=== PATIENT | male | born 1960 | race Caucasian/White ===

== ENCOUNTER 2016-11-19 11:51 | Inpatient (IN) | payer OTHER ==
[~2016-11-19] VITALS: Ht 180.3 cm; Wt 127.0 kg
[2016-11-19] VITALS (37 sets, daily range): BP systolic 90–215; BP diastolic 49–147; PULSE 64–77; RESP 13–34; TEMP 97.2; Ht 180.3 cm; Wt 127.0 kg
[~2016-11-19 11:51] MED LIST: ETOMIDATE 20 MG INJ ONE
[2016-11-19] MEDS ORDERED: KETAMINE 500 MG INJ IV STA (12:09)
[2016-11-19] MEDS ORDERED: SUCCINYLCHOLINE CHLORIDE 100 MG/5 ML SYG IV STA (12:09)
[2016-11-19] MEDS ORDERED: HYDROmorphONE 1 MG/ML SYG IV STA (12:09)
[2016-11-19] MEDS ORDERED: PROPOFOL 100 ML IV STA (12:09)
[2016-11-19] MEDS ORDERED: ETOMIDATE 20 MG INJ IV STA (12:09)
[2016-11-19] MEDS ORDERED: ASPIRIN 300 MG SUPP PR STA (12:09)
[2016-11-19] MEDS ORDERED: KETAMINE 500 MG INJ ONE (12:10)
[2016-11-19] MEDS ORDERED: HEPARIN 1000 UNITS/ML 10 ML INJ IV STA (12:12)
[2016-11-19 12:29] LABS: ADD SCAN DIFF NO
[2016-11-19 12:31] LABS: BASOPHILS % 0.2 % (0.0-2.0); HEMATOCRIT 39.8 % (42.0-52.0); HEMOGLOBIN 12.3 g/dl (14.0-18.0); LYMPHOCYTES # 2.2 10^3/ul (0.8-2.9); LYMPHOCYTES % 11.5 % (15.0-51.0); MEAN CORPUSCULAR HEMOGLOBIN 29.8 pg (29.0-33.0); MEAN CORPUSCULAR HGB CONC 30.9 g/dl (32.0-37.0); MEAN CORPUSCULAR VOLUME 96.4 fl (82.0-101.0); MEAN PLATELET VOLUME 11.3 fl (7.4-10.4); MONOCYTE # 1.4 10^3/ul (0.3-0.9); MONOCYTES % 7.7 % (0.0-11.0); NEUTROPHIL # 14.8 10^3/ul (1.6-7.5); NEUTROPHILS % 79.3 % (39.0-77.0); NUCLEATED RED BLOOD CELLS% 0.1 /100WBC (0.0-0.0); PLATELET COUNT 269 10^3/UL (140-415); RED BLOOD COUNT 4.13 10^6/ul (4.70-6.10); RED CELL DISTRIBUTION WIDTH 13.2 % (11.5-14.5); WHITE BLOOD COUNT 18.6 10^3/ul (4.8-10.8)
[2016-11-19] MEDS ORDERED: LIDOCAINE 1% (MDV) 20 ML INJ ONE (12:36)
[2016-11-19] MEDS ORDERED: IODIXANOL LOCM 100 ML BTL ONE ×3 (12:36→14:51)
[2016-11-19] MEDS ORDERED: VERAPAMIL 5 MG INJ ONE (12:38)
[2016-11-19] MEDS ORDERED: NITROGLYCERIN (IC) 100 MCG/ML INJ ONE (12:38)
[2016-11-19] MEDS ORDERED: IODIXANOL LOCM 50 ML BTL ONE (12:38)
--- NOTE | 2016-11-19 12:45 | RADRPT ---
PROCEDURE: XR Chest. CLINICAL INDICATION: Chest pain. TECHNIQUE: Single frontal view of the chest was obtained. COMPARISON: None FINDINGS: The soft tissues are generous. An endotracheal tube is positioned near T3. An NG tube is positione d distal to the GE junction. There is a suboptimal inspiratory effort.. There are degenerative ost eophytes in the thoracic spine. The heart is enlarged. The cardiomediastinal silhouette and hilar structures are normal. The pulmonary vasculature is equilibrated. There is a left-sided aorta. Ther e is increased density in the bases of the lungs in the medial aspect of the right lower lung field and in the left lower lung field left costophrenic angle is of the field of view. IMPRESSION: 1. Cardiomegaly. 2. Satisfactory positioning of the endotracheal tube and NG tube. 3. Suboptimal inspiratory effort with increased density in the bases of the lung which may be the r esult of either infiltrate or atelectasis. 4. Equilibration the pulmonary vasculature is attributed to supine positioning. RPTAT:AAJJ Physician Radha Date Time Electronically viewed and signed by Physician Radha on 11/19/2016 12:45 ELAYNE/
[2016-11-19 12:49] LABS: INR 2.81; PT RATIO 2.3
[2016-11-19 12:57] LABS: POTASSIUM 4.8 mmol/L (3.5-5.1)
[2016-11-19 13:00] LABS: CALCIUM 9.3 mg/dl (8.4-10.2); CREATININE 5.05 mg/dl (0.61-1.24)
[2016-11-19 13:03] LABS: PARTIAL THROMBOPLASTIN TIME 36.5 Sec (25.0-35.0)
[2016-11-19] MEDS ORDERED: FENTAnyl 50 MCG/ML VIAL ONE (13:08)
[2016-11-19] MEDS ORDERED: MIDAZOLAM 1 MG/ML 2 ML INJ ONE (13:09)
[2016-11-19 13:10] LABS: TROPONIN-I 17.1 ng/ml (0.00-0.12)
[2016-11-19] MEDS ORDERED: HEPARIN 1000 UNITS/ML 10 ML INJ ONE (13:14)
--- NOTE | 2016-11-19 13:22 | ERA ---
ER Documentation Chief Complaint Date/Time DATE: 11/19/16 TIME: 13:16 Chief Complaint SOB HPI 56-year-old male with hypertension and diabetes as well as smoking who presents with shortness of breath. Please note the history and physical exam is limited secondary to the patient's shortness of breath this time and he is on BiPAP therapy. The patient is also confused. Paramedics called from the field and said that they had a STEMI however they did not transmit the EKG through the email system. The patient arrived at 1149 and the EKG actually showed ventricular tachycardia. There is no family available at this time. ROS All systems reviewed and are negative except as per history of present illness. Medications Home Meds Unable to Obtain Active Prescriptions or Reported Meds Allergies Allergies: Coded Allergies: No Known Allergy (Unverified , 11/19/16) PMhx/Soc Hx Cardiac Disorders: Yes (htn) Hx Miscellaneous Medical Probl: Yes (dm) Smoking Status: Unknown if ever smoked FmHx Family History: No coronary disease Physical Exam Vitals Vital Signs Date Time Temp Pulse Resp B/P Pulse Ox O2 Delivery O2 Flow Rate FiO2 11/19/16 11:55 182 32 129/98 Physical Exam Const: Severe distress Head: Atraumatic Eyes: Normal Conjunctiva ENT: Normal External Ears, Nose and Mouth. Neck: Full range of motion..~ No meningismus. Resp: Patient is tachypneic and wearing a CPAP with bilateral breath sounds Cardio: Tachycardic rate Abd: Soft, non tender, non distended. Normal bowel sounds Skin: Pale skin Back: No midline or flank tenderness Ext: No cyanosis, or edema Neur: Awake but confused Result Diagram: 11/19/16 1207 11/19/16 1207 Results 24 hrs Laboratory Tests Test 11/19/16 12:07 White Blood Count 18.610^3/ul Red Blood Count 4.1310^6/ul Hemoglobin 12.3g/dl Hematocrit 39.8% Mean Corpuscular Volume 96.4fl Mean Corpuscular Hemoglobin 29.8pg Mean Corpuscular Hemoglobin Concent 30.9g/dl Red Cell Distribution Width 13.2% Platelet Count 52124^3/UL Mean Platelet Volume 11.3fl Neutrophils % 79.3% Lymphocytes % 11.5% Monocytes % 7.7% Eosinophils % 0.0% Basophils % 0.2% Nucleated Red Blood Cells % 0.1/100WBC Neutrophils # 14.810^3/ul Lymphocytes # 2.210^3/ul Monocytes # 1.410^3/ul Eosinophils # 0.010^3/ul Basophils # 0.010^3/ul Nucleated Red Blood Cells # 0.010^3/ul Prothrombin Time 30.0Sec Prothrombin Time Ratio 2.3 INR International Normalized Ratio 2.81 Activated Partial Thromboplast Time 36.5Sec Sodium Level 139mmol/L Potassium Level 4.8mmol/L Chloride Level 101mmol/L Carbon Dioxide Level 10mmol/L Anion Gap 33 Blood Urea Nitrogen 55mg/dl Creatinine 5.05mg/dl Glucose Level 114mg/dl Calcium Level 9.3mg/dl Troponin I 17.100ng/ml Current Medications Medications (Trade) Dose Ordered Sig/Ben Route PRN Reason Start Time Stop Time Status Last Admin Dose Admin Aspirin (Aspirin) 300 mg ONCE STAT OK 11/19/16 12:09 11/19/16 12:11 DC 11/19/16 12:22 Hydromorphone HCl (Dilaudid) 1 mg ONCE STAT IV 11/19/16 12:09 11/19/16 12:11 DC 11/19/16 12:18 Succinylcholine Chloride (Anectine Syringe) 150 mg ONCE STAT IV 11/19/16 12:09 11/19/16 12:11 DC Etomidate (Amidate) 20 mg ONCE STAT IV 11/19/16 12:09 11/19/16 12:11 DC Ketamine HCl 100 mg 100 mg ONCE STAT IV 11/19/16 12:09 11/19/16 12:11 DC Propofol (Diprivan) 100 ml @ 3.137 mls/ hr ONCE STAT IV 11/19/16 12:09 11/20/16 20:01 11/19/16 12:17 Ketamine HCl (Ketalar) 500 mg STK-MED ONCE .ROUTE 11/19/16 12:10 11/19/16 12:11 DC Heparin Sodium (Porcine) 5000 unit 5,000 unit ONCE STAT IV 11/19/16 12:12 11/19/16 12:13 DC 11/19/16 12:17 Heparin Sodium/ Sodium Chloride (Heparin 1000 Units/NS (A-Line)) 1,500 ml @ ud STK-MED ONCE .ROUTE 11/19/16 12:35 11/19/16 12:36 DC Lidocaine (Xylocaine 1% (Mdv) 20 ml) 20 ml STK-MED ONCE .ROUTE 11/19/16 12:36 11/19/16 12:37 DC Iodixanol (Visipaque Locm) 100 ml STK-MED ONCE .ROUTE 11/19/16 12:36 11/19/16 12:37 DC Nitroglycerin (Nitroglycerin (Intracoronary)) 1,000 mcg STK-MED ONCE .ROUTE 11/19/16 12:38 11/19/16 12:39 DC Iodixanol (Visipaque Locm) 50 ml STK-MED ONCE .ROUTE 11/19/16 12:38 11/19/16 12:39 DC Verapamil HCl (Verapamil) 5 mg STK-MED ONCE .ROUTE 11/19/16 12:38 11/19/16 12:39 DC Procedures/MDM EKG #1 read by me: Rate/Rhythm: Ventricular tachycardia Intervals: Wide QRS Impression: Ventricular tachycardia EKG #2 read by me: Rate/Rhythm: Regular rate and rhythm at a normal rate Intervals: Normal Impression: ST elevations in the inferior leads with reciprocal depressions consistent with STEMI Chest X-ray 1V Interpreted by me: Soft Tissue: No acute abnormalities Bones: No acute abnormalities Mediastinum/Cardiac Silhouette/Lungs: Pulmonary edema, ET tube is just below the clavicles Endotracheal Intubation by me: Pre assessment performed. Pre-oxygenation performed with 100% oxygen RSI: Performed w/o complication or hypoxic events. Medications as ordered. Blade: MAC 4 Glidescope ET Tube: 7, please note that an 8 ET tube was tried initially but I was unable to pass the tube so I needed to change to a 7, this was a very difficult intubation and there may be subglottic stenosis Depth: 23 cm at the lip Intubation confirmed by colorimetric CO2, equal breath sounds, quiet over the stomach. Procedural Sedation: Pre-assessment performed. See preceding complete history and physical for details. Time out performed. Counterintelligence Analyst, Continuous Pulse Ox. See sedation documentation for details. Medication(s): Ketamine 100 mg IV Complications: No hypoxic or apneic events Recovered without incident. Greater than 15 minutes of face to face time included in sedation and recovery. Cardioversion: Pre-assessment performed. See preceding complete history and physical for details. Time out performed. Counterintelligence Analyst, Continuous Pulse Ox. See sedation documentation for details. Technique: Biphasic Synchronized Cardioversion 200J: Converted Complications: No hypotensive events Critical Care: Time: 50 minutes Treatments/Evaluations: Close monitoring for dangerous arrhythmia and cardiovascular collapse, while treating with advance cardiac medications and techniques. Patient is a 56-year-old male who presents with ventricular tachycardia. The patient arrived 1149. The patient needed cardioversion for ventricular tachycardia and then required intubation. A repeat EKG showed STEMI in the inferior leads. A code STEMI was called at 1206. Dr. Simeon the cement mason helper log pond worker was at the bedside by 1212. The cardiac cath team arrived at 1236. The patient was transferred to the cardiac Billboard Erector at 1239. I spoke with Dr. Simeon who agreed to take the patient to the cardiac catheterization lab. He has for 5000 units of heparin IV in addition to the aspirin per rectum that was given in the emergency department. The patient was sedated with propofol. The patient has a significantly elevated troponin of 17 and I am concerned for significant heart attack with STEMI. Please note that there was a delay in getting the patient to the cardiac Billboard Erector given the need for cardioversion and intubation in the emergency department. Initial EKG did not show STEMI that showed ventricular tachycardia. It was only after cardioversion that the STEMI was seen. The patient has regal insurance and I spoke with Dr. Escobar for admission to the intensive care unit. Please note that the intubation was very difficult and I was unable to pass an 8 ET tube. I needed to use a 7 ET tube and this was difficult as well. The patient may require further workup for subglottic stenosis. Departure Diagnosis: Primary Impression: STEMI (ST elevation myocardial infarction) Qualified Code: I21.3 - ST elevation myocardial infarction (STEMI), unspecified artery Additional Impressions: Shortness of breath V-tach Condition: Critical KATHY VALENCIA MD Nov 19, 2016 13:22
--- NOTE | 2016-11-19 13:29 | CONS ---
DATE OF ADMISSION: 11/19/2016 DATE OF CONSULTATION: 11/19/2016 Cardiology consultation. SUBJECTIVE: Briefly, this is a 56-year-old gentleman with history of diabetes, hypertension and the best I could obtain was brought in because of increasing shortness of breath by paramedics. He was noted to be in ventricular tachycardia, had to be cardioverted. The patient also had to be intubat ed in respiratory failure. The patient is currently intubated R1 history to me. DIAGNOSTIC DATA: Post- cardioversion EKG also showed inferior ST elevation myocardial infarction. Code STEMI was called and the patient was immediately evaluated by me. The patient needs to undergo emergent left heart catheterization, coronary angio, possible percutaneous coronary intervention in cluding balloon pump placement. No family could be reached to get the consent from at this point. The patient also is not consentable and both felt the patient emergently needs this lifesaving proce dure. Although there is a significant risk associated with it, the benefit is more than the risk an d the patient will be taken to the quality assurance qa lab technician as soon as the quality assurance qa lab technician is available. Dictated By: SERENA CENTENO/JUANY Conf#: [id number] DID#: [id number]
[2016-11-19] MEDS ORDERED: NORepinephrine 8MG/250 ML (PMX 250 ML ONE (13:33)
[2016-11-19] MEDS ORDERED: EPTIFIBATIDE 100 ML IV ONE (13:47)
[2016-11-19] MEDS ORDERED: EPTIFIBATIDE 10 ML ONE (13:47)
[2016-11-19] MEDS ORDERED: TICAGRELOR 90 MG TABLET ONE (13:48)
[2016-11-19] MEDS ORDERED: HEPARIN 1000 UNITS/NS (A-LINE) 1,000 ML ONE (13:57)
[2016-11-19] MEDS ORDERED: SOD CHLORIDE 0.9% 500 ML ONE (14:29)
[2016-11-19] MEDS ORDERED: NA BICARBONATE 8.4% 50 ML SYG ONE (14:30)
[2016-11-19 15:10] LABS: AADO2 Arterial 425.5 mmHg (7.0-24.0); Arterial Base Excess -14.5 mmol/L (-3.0-3); Arterial COHb 0.1 % (0.0-3.0); Arterial Fraction of Oxyhgb 98.4 % (93.0-99.0); Arterial HCO3 10.2 mmol/L (22.0-26.0); Arterial MetHb 0.3 % (0.0-1.5); Arterial Total Hemglobin 11.2 g/dl (12.0-18.0); MODE VENT - AC
[2016-11-19] MEDS ORDERED: SOD CHLORIDE 0.9% 1,000 ML IV SCH (15:14)
[2016-11-19] MEDS ORDERED: EPTIFIBATIDE 100 ML IV SCH (15:14)
[2016-11-19] MEDS ORDERED: NORepinephrine 8MG/250 ML (PMX 250 ML IV SCH (16:30)
[2016-11-19] MEDS: PROPOFOL 100 ML IV SCH ×2 (16:51→19:20)
[2016-11-19 16:52] LABS: ADD SCAN DIFF NO
[2016-11-19 17:00] LABS: BASOPHILS % 0.1 % (0.0-2.0); HEMOGLOBIN 10.5 g/dl (14.0-18.0); LYMPHOCYTES # 1.4 10^3/ul (0.8-2.9); LYMPHOCYTES % 6.9 % (15.0-51.0); MEAN CORPUSCULAR HEMOGLOBIN 30.9 pg (29.0-33.0); MEAN CORPUSCULAR HGB CONC 33.9 g/dl (32.0-37.0); MEAN CORPUSCULAR VOLUME 91.2 fl (82.0-101.0); MEAN PLATELET VOLUME 11.7 fl (7.4-10.4); MONOCYTE # 0.8 10^3/ul (0.3-0.9); NEUTROPHIL # 17.5 10^3/ul (1.6-7.5); NEUTROPHILS % 88.1 % (39.0-77.0); NUCLEATED RED BLOOD CELLS% 0.1 /100WBC (0.0-0.0); PLATELET COUNT 209 10^3/UL (140-415); RED CELL DISTRIBUTION WIDTH 13.2 % (11.5-14.5); WHITE BLOOD COUNT 19.8 10^3/ul (4.8-10.8)
[2016-11-19] MEDS ORDERED: ACETAMINOPHEN 650 MG SUPP PR PRN (17:00)
[2016-11-19] MEDS ORDERED: ONDANSETRON 4 MG INJ IV PRN (17:00)
[2016-11-19] MEDS ORDERED: ACETAMINOPHEN 650MG/20.3ML CUP PO PRN (17:00)
[2016-11-19] MEDS ORDERED: DOCUSATE SODIUM 100 MG CAP PO PRN (17:00)
[2016-11-19] MEDS: FENTAnyl (DRIP) 1000 mcg/100mL 100 ML IV SCH (17:19)
[2016-11-19] MEDS ORDERED: GLUCOSE GEL 15 GRAM TUBE BUCCAL PRN (17:30)
[2016-11-19] MEDS ORDERED: GLUCOSE GEL 15 GRAM TUBE PO PRN ×2 (17:30)
[2016-11-19] MEDS ORDERED: DEXTROSE 50% 50 ML SYRINGE IV PRN ×2 (17:30)
[2016-11-19] MEDS ORDERED: GLUCAGON 1 MG INJ IM PRN (17:30)
[2016-11-19] MEDS: INSULIN ASPART [NOVOLOG] 3 ML PEN SC SCH ×2 (17:30→20:44)
[2016-11-19] MEDS: FAMOTIDINE 20 MG INJ IV SCH (17:48)
--- NOTE | 2016-11-19 17:57 | OPR ---
DATE OF OPERATION: PRIMARY PHYSICIAN: Dr. Vega PROCEDURE: Right internal jugular central venous catheter insertion. INDICATION: Shock and urgent need for vasopressor support. CONSENT: A 2-physician consent had to be obtained as this was an emergent procedure, as patient did not have IV access. MEDICATIONS USED: Lidocaine 1%, 5 mL locally. TECHNIQUE: Patient's neck was sterilized with chlorhexidine. Under strict sterile precautions and using direct ultrasound guidance, an internal jugular triple lumen central venous catheter was inser joel and the guidewire was removed. The catheter was sutured in place at 18 cm, and all ports were f lushed with normal saline. Sterile dressings including a Biopatch were applied. COMPLICATIONS: None. FOLLOWUP STUDIES: Chest x-ray has been ordered and is pending. Dictated By: SHERRY FELIPE MD NK/NTS Conf#: [id number] DID#: [id number] CC: PIO VGEA MD;*EndCC*
[2016-11-19] MEDS ORDERED: SODIUM BICARBONATE (IV ADD) 150 MEQ in DEXTROSE 5% 850 ML IV SCH (18:00)
--- NOTE | 2016-11-19 18:08 | CONS ---
DATE OF ADMISSION: 11/19/2016 DATE OF CONSULTATION: 11/19/2016 TYPE OF CONSULTATION: Pulmonary. PRIMARY PHYSICIAN: Dr. Vega REASON FOR CONSULTATION: Status post cardiopulmonary arrest in the setting of STEMI with associated V fibrillation arrest. HISTORY OF PRESENT ILLNESS: Briefly, this is a 56-year-old gentleman with diabetes, hypertension, l ikely sleep apnea who presented to the emergency room earlier today after developing increasing shor tness of breath. In the emergency room he was noted to be in ventricular tachycardia requiring card ioversion. Additionally, he went into respiratory failure and required intubation. Per emergency r oom notes, it appears that he was a difficult airway and this may have been a traumatic intubation. Following cardioversion the patient was noted to have as inferior ST segment elevation on EKGs. Th erefore a code STEMI was initiated and the patient was evaluated by Dr. Simeon and underwent left he art catheterization with PCI of the circumflex. The patient also received a balloon pump and has ju st returned from the laborer livestock with a balloon pump in place with blood pressures being currently supp orted with Levophed drip. PAST MEDICAL HISTORY: As noted above, otherwise unknown. PAST SURGICAL HISTORY: Unknown. MEDICATIONS: Please see MAR. ALLERGIES: UNKNOWN. SOCIAL HISTORY: Unknown and unable to obtain. FAMILY HISTORY: Unknown and unable to obtain. REVIEW OF SYSTEMS: Unknown and unable to obtain. PHYSICAL EXAMINATION: VITAL SIGNS: Heart rate is 78 and regular, blood pressure is 97/58 supported on Levophed 20 mcg, on mechanical ventilation with 100% FIO2, SpO2 is 100%. HEENT: ET tube is in place. He has a very large neck and jugular venous pressures are unable to be assessed. CARDIOVASCULAR: Distant S1 and S2 with a II/ systolic murmur heard best at the apex. CHEST: There are some coarse breath sounds heard at the bases, otherwise he is clear to auscultatio n anteriorly. ABDOMEN: Obese, nontender, no hepatosplenomegaly. EXTREMITIES: No cyanosis, clubbing or edema. LABORATORY DATA: WBC is 18.6, hemoglobin is 12.3. Troponin is 17, bicarbonate is 10, BUN is 55, cr eatinine is 5.05, INR is 2.81. WBC is pH of 7.31, pCO2 is 21, pO2 is 270. Chest x-ray shows some left lower lobe atelectasis, some volume loss, cardiomegaly and endotracheal tube was in place. IMPRESSION: 1. Status post ventricular tachycardia, ventricular fibrillation arrest, likely stemming from ST el evation myocardial infarction. Status post left heart catheterization and PCI to the circumflex. 2. Cardiogenic shock. 3. Acute renal failure, likely acute tubular necrosis in the setting of his ventricular fibrillatio n/V tachycardia arrest. 4. Diabetes. 5. Hypertensive heart disease. RECOMMENDATIONS: 1. Ventilatory support to adjust vent settings to optimize patient's synchrony and mechanics. 2. Continue propofol for sedation; however, will add fentanyl to lower propofol needs to help impro ve hemodynamics. 3. Continue Levophed and may need to add dopamine for additional hemodynamic support 4. Continue to follow urine output and if needed, may use D5W with 3 amps of sodium bicarbonate for some fluid resuscitation. 5. Given his low responsiveness there is at this point, no indication for hypothermia protocol. 6. DVT and gastrointestinal prophylaxis to be implemented. 7. We will also need central venous access given his vasopressor needs. Dictated By: SHERRY FELIPE MD NK/NTS Conf#: [id number] DID#: [id number] CC: PIO VEGA MD; YOANDY RICHARD MD;*EndCC*
--- NOTE | 2016-11-19 18:09 | RADRPT ---
PROCEDURE: XR Chest. CLINICAL INDICATION: Central line placement. TECHNIQUE: Single frontal view of the chest. COMPARISON: Today, about 5 hours ago. FINDINGS: Endotracheal intubation in place with tip about 55 mm above the margot. Nasogastric tube in place w ith tip and side port in the proximal to mid stomach. New right central venous line in place with t ip at the superior vena cava right atrial junction. New transcutaneous pacing pads seen over the rig ht chest and left upper quadrant of the abdomen. Cardiomegaly and atherosclerotic calcifications in the thoracic aorta. Mild right lung air space disease and mild pulmonary vascular congestion. No signs of pleural fluid or pneumothorax are seen. The osseous structures and soft tissues are unremarkable. IMPRESSION: 1. New right central venous line in place with tip in superior vena cava right atrial junction. 2. Mild right lung air space disease and pulmonary vascular congestion. RPTAT: UU Physician Nicolás Date Time Electronically viewed and signed by Physician Nicolás on 11/19/2016 18:09 RS/
--- NOTE | 2016-11-19 18:11 | RADRPT ---
PROCEDURE: Retroperitoneal US. CLINICAL INDICATION: Renal insufficiency TECHNIQUE: Multiple sonographic images of the kidneys and retroperitoneum were obtained. The imag es were reviewed on a PACS workstation. COMPARISON: No prior studies are available for comparison. FINDINGS: The kidneys are normal in size, contour, cortical thickness and cortical echogenicity. The right kidney measures 9.8 cm. The left kidney measures 10.6 cm. No kidney stones are visualized. There is no evidence for hydronephrosis. The urinary bladder is not visualized. RPTAT: AA IMPRESSION: Unremarkable retroperitoneal ultrasound. .Yamil Bautista MD, Date Time Electronically viewed and signed by .Yamil Bautista MD, on 11/19/2016 18:11 .S/
[2016-11-19 18:16] LABS: ALBUMIN 3.4 g/dl (3.3-4.9); BILIRUBIN,INDIRECT 0.5 mg/dl (0-1.1); BILIRUBIN,TOTAL 0.5 mg/dl (0.2-1.3); CALCIUM 8.6 mg/dl (8.4-10.2); CREATININE 4.43 mg/dl (0.61-1.24); MAGNESIUM 2.3 mg/dl (1.7-2.5); POTASSIUM 4.5 mmol/L (3.5-5.1); TOTAL PROTEIN 6.2 g/dl (6.1-8.1)
[2016-11-19 18:17] LABS: ALBUMIN/GLOBULIN RATIO 1.21
--- NOTE | 2016-11-19 18:18 | HP ---
DATE OF ADMISSION: 11/19/2016 PRIMARY CARE PHYSICIAN: Unknown. CHIEF COMPLAINT ON ADMISSION: Severe respiratory distress. HISTORY OF PRESENT ILLNESS: This is a 56-year-old male who reportedly has a history of COPD, obstru ctive sleep apnea, diabetes mellitus, morbid obesity, tobacco use, who apparently presented with josé manuel rtness of breath . The patient is currently intubated post-cardiac catheterization and cannot give any history. According to the notes from emergency department physician, and also from cardiol phyllis, the patient was found by EMS. At that time, he was short of breath, requiring BiPAP therapy. EMS had an EKG that apparently showed STEMI. They did call ahead for STEMI code. Patient arrived h ere in the emergency department, was found to be in ventricular tachycardia. He was also in signifi cant respiratory distress. He needed cardioversion for the ventricular tachycardia, and also intuba tion. A second EKG showed a STEMI in the inferior leads. Code STEMI was activated at that time. Talat Simeon, cardiology, who was solutions specialist was on site and patient was taken to the laboratory sampler. According to the ER physician, Dr. Daniels, the patient was also with difficult intubation. The patient was t aken to the laboratory sampler. He was found to have an obstruction of the left circumflex artery that had to be stented. He did require a balloon pump placement. Some of his laboratory data started coming b ack after he was already getting emergent procedure, but he seems to have leukocytosis, likely stres s response and also significant acute kidney injury. Based on records available from outpatient, daniela smith's creatinine back in 2014 was 1.46; on this admission, his creatinine is up to 5.5. He also h ad elevated BUN of 55 and signs of metabolic acidosis . Troponin came back at 17.1. Lactic aci d is still pending. Post-procedure, the patient is on multiple drips, admitted to the intensive car e unit. He just had a central line placed by pulmonary critical care. So far, no urine output. ALLERGIES: NO KNOWN ALLERGIES. PAST MEDICAL HISTORY: This is per outpatient record. 1. Diabetes mellitus. It is unclear if the patient is insulin-requiring or not. 2. Chronic obstructive pulmonary disease. Again, it is unclear how severe. 3. Tobacco user. 4. Morbid obesity. 5. Obstructive sleep apnea, supposedly on CPAP at night. 6. 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 PAST SURGICAL HISTORY: Unknown. SOCIAL HISTORY: Unknown except for tobacco use. REVIEW OF SYSTEMS: Unable to obtain. PHYSICAL EXAMINATION: VITAL SIGNS: Heart rate is 75, sinus rhythm, respiratory rate of 17. Patient is on full vent suppo rt, satting 100%. He is currently on Levophed. He does have an A-line while having a balloon pump. Temperature is 97.9, blood pressure 132/108, heart rate of 75, sinus rhythm. Patient is saturatin g 100% on full vent support with respiratory rate of 17. GENERAL: He is sedated. He is intubated. He has multiple lines in the site and getting a triple l umen placed. HEENT: Limited exam in this sedated state, but no JVD, no thyromegaly noted. HEART: Regular rate and rhythm. LUNGS: No wheezes are heard. Slightly decreased breath sounds at the bases, but otherwise fairly c lear on the exam. The patient is intubated on full vent support. ABDOMEN: Obese, soft, nondistended. Bowel sounds are decreased. EXTREMITIES: No edema, clubbing or cyanosis. NEUROLOGIC: Again, he is sedated and intubated. LABORATORY DATA: White blood cell count is 18.6 with 79% neutrophils, hemoglobin is 12.3, hematocri t 39.8, platelet count of 269. Chemistry with a sodium of 139, potassium 4.8, chloride 101, bicarbo loraine 10, BUN 55, creatinine 5.05, glucose of 114, calcium is 9.3. Troponin 17.1. INR of 2.81, PT 3 0.0, PTT 36.5. ABG done at approximately 3 p.m. shows a pH of 7.308, pO2 of 269 and a pCO2 of 20.5. Additional laboratory data is pending. Again, EKG prior to going to the laboratory sampler did show a STEMI in the inferior leads. RADIOLOGICAL DATA: Chest x-ray done post-intubation did show cardiomegaly and possible infiltrate v ersus atelectasis at the bases. Chest x-ray post-central line placement is pending along with 2-D e chocardiogram at this time. ASSESSMENT AND PLAN: This is a 56-year-old male with: 1. ST elevation myocardial infarction with a hemodynamic instability, status post ventricular tachy cardia, cardioverted status post angiogram with PCI to the circumflex, currently on a balloon pump. Dr. Simeon is following, along with pulmonary critical care. The patient is in critical condition for now. He has been placed on multiple cardiac meds per Dr. Simeon at this point. 2. Acute respiratory failure secondary to cardiogenic shock and ST elevation myocardial infarction. He is status post intubation. The patient also has a history of chronic obstructive pulmonary dis ease. Therefore, he may need nebulizer treatment. Pulmonary is following for ventilator management . 3. Diabetes mellitus. His blood sugars are fairly stable. Therefore, he will be placed on a slidi ng scale insulin for now. Hemoglobin A1c has been ordered. 4. Obstructive sleep apnea on CPAP at night. 5. Morbid obesity. 6. Tobacco use. Hopefully the patient will quit after this. Nicotine patch as needed. 7. Acute kidney injury on probable chronic kidney disease, likely secondary to acute tubular necros is in this situation. Currently, his renal function is poor. No urine output yet. Repeat labs are pending. Patient will be placed on a bicarbonate drip. At this point, he did receive 2 amps of bi carb in the laboratory sampler for metabolic acidosis. Lactic acid is pending. We will get ultrasound of the kidneys done and a nephrology consult will be placed. Gann catheter is already in place for stric t I's and O's. 8. Prophylaxis. The patient is on multiple antiplatelets and his INR is actually elevated. We ruth l check his LFTs which are pending. DISPOSITION: The patient is critically ill in the intensive care unit with a guarded prognosis so salazar ar. Dictated By: PIO PHILLIPS/JUANY Conf#: [id number] DID#: [id number]
[2016-11-19 18:29] LABS: CK-MB 33.3 ng/ml (0.0-2.4)
[2016-11-19] MEDS: SODIUM BICARBONATE (IV ADD) 150 MEQ in DEXTROSE 5% 850 ML IV SCH (20:20)
[2016-11-19 20:48] LABS: CK-MB 36.8 ng/ml (0.0-2.4)
[2016-11-19 20:56] LABS: TROPONIN-I 19.9 ng/ml (0.00-0.12)
[2016-11-19] MEDS ORDERED: LIDOCAINE 2 GM/D5W 500 ML ONE (22:12)
[2016-11-19 22:14] LABS: CALCIUM 8.1 mg/dl (8.4-10.2); CREATININE 4.32 mg/dl (0.61-1.24); MAGNESIUM 2.3 mg/dl (1.7-2.5); PHOSPHORUS 7.4 mg/dl (2.5-4.9); POTASSIUM 4.4 mmol/L (3.5-5.1)
[2016-11-19] MEDS: TICAGRELOR 90 MG TABLET PO SCH (22:47)
[2016-11-19] MEDS: LIDOCAINE 2 GM/D5W 500 ML IV SCH (22:53)
[2016-11-20] VITALS (105 sets, daily range): BP systolic 80–128; BP diastolic 50–91; PULSE 69–79; RESP 13–29
[2016-11-20] MEDS: PROPOFOL 100 ML IV SCH ×5 (00:07→18:30)
[2016-11-20 00:29] LABS: Arterial Base Excess -7.3 mmol/L (-3.0-3); Arterial COHb 0.2 % (0.0-3.0); Arterial Fraction of Oxyhgb 98.5 % (93.0-99.0); Arterial HCO3 16.1 mmol/L (22.0-26.0); Arterial MetHb 0.1 % (0.0-1.5); Arterial Total Hemglobin 11.5 g/dl (12.0-18.0); Blood Gas Mean Airway Pressure 14; MODE VENT - AC
[2016-11-20] MEDS: INSULIN ASPART [NOVOLOG] 3 ML PEN SC SCH ×6 (00:58→20:54)
[2016-11-20 01:25] LABS: CK-MB 39.5 ng/ml (0.0-2.4); TROPONIN-I 21.3 ng/ml (0.00-0.12)
[2016-11-20 04:53] LABS: ADD SCAN DIFF NO
[2016-11-20 05:04] LABS: AADO2 Arterial 112.7 mmHg (7.0-24.0); Arterial Base Excess -3.5 mmol/L (-3.0-3); Arterial COHb 0.2 % (0.0-3.0); Arterial MetHb 0.3 % (0.0-1.5); Arterial Total Hemglobin 11.4 g/dl (12.0-18.0); MODE VENT - AC
[2016-11-20 05:09] LABS: BASOPHILS % 0.3 % (0.0-2.0); EOSINOPHILS % 0.1 % (0.0-7.0); HEMATOCRIT 27.4 % (42.0-52.0); HEMOGLOBIN 9.3 g/dl (14.0-18.0); LYMPHOCYTES # 2.2 10^3/ul (0.8-2.9); LYMPHOCYTES % 13.6 % (15.0-51.0); MEAN CORPUSCULAR HEMOGLOBIN 30.4 pg (29.0-33.0); MEAN CORPUSCULAR HGB CONC 33.9 g/dl (32.0-37.0); MEAN CORPUSCULAR VOLUME 89.5 fl (82.0-101.0); MEAN PLATELET VOLUME 11.8 fl (7.4-10.4); MONOCYTE # 0.3 10^3/ul (0.3-0.9); NEUTROPHIL # 13.2 10^3/ul (1.6-7.5); NEUTROPHILS % 83.3 % (39.0-77.0); NUCLEATED RED BLOOD CELLS # 0.1 10^3/ul (0.0-0.0); NUCLEATED RED BLOOD CELLS% 0.4 /100WBC (0.0-0.0); PLATELET COUNT 200 10^3/UL (140-415); RED BLOOD COUNT 3.06 10^6/ul (4.70-6.10); RED CELL DISTRIBUTION WIDTH 13.3 % (11.5-14.5); WHITE BLOOD COUNT 15.9 10^3/ul (4.8-10.8)
[2016-11-20 05:17] LABS: ALBUMIN/GLOBULIN RATIO 1.11; BILIRUBIN,INDIRECT 0.4 mg/dl (0-1.1); BILIRUBIN,TOTAL 0.4 mg/dl (0.2-1.3); CALCIUM 7.8 mg/dl (8.4-10.2); CHOL/HDL RATIO 4.4 RATIO; CREATININE 4.39 mg/dl (0.61-1.24); MAGNESIUM 2.3 mg/dl (1.7-2.5); PHOSPHORUS 7.1 mg/dl (2.5-4.9); TOTAL PROTEIN 5.7 g/dl (6.1-8.1)
[2016-11-20 05:21] LABS: INR 2.61; PARTIAL THROMBOPLASTIN TIME 33.5 Sec (25.0-35.0); PROTIME 28.3 Sec (12.2-14.2); PT RATIO 2.2
--- NOTE | 2016-11-20 07:31 | CONS ---
DATE OF ADMISSION: 11/19/2016 DATE OF CONSULTATION: 11/19/2016 TYPE OF CONSULTATION: Emergency Interventional Cardiology. REASON FOR CONSULTATION: ST elevation myocardial infarction. REFERRING PHYSICIAN: Dr. Valencia from emergency room and Dr. Vega CHIEF COMPLAINT: Shortness of breath. HISTORY OF PRESENT ILLNESS: Thank you for this referral. History was obtained from discussion with the ER physician and staff and multiple physicians. The patient ____ history. This is an unfortu loraine 56-year-old gentleman who has a reported history of diabetes, hypertension, apparently also smo jocelynn who was brought in by paramedics to the emergency room with complaint of shortness of breath. EKG initially in the emergency room shows ventricular tachycardia. The patient with respiratory dis tress, had to be cardioverted and intubated. Post-cardioversion ____ inferior ST elevation myocard ial infarction. Code STEMI was called and I was emergently contacted. I immediately arrived to the patient at the bedside. The patient's EKG confirmed ST elevation myocardial infarction inferiorly. He was intubated. He had to be taken for emergent cardiac catheterization. Cardiac catheterization showed diffuse multivessel disease of moderate degree. Left circumflex artery appeared to be 100% occluded distally. This area was angioplastied. However, very poor flow was noted. The patient als o has been hypotensive. Required to have ____ balloon pump. The patient also was noted to be yvan rely acidotic. Initial pH of 7.1. Bicarbonate was also extremely low, has received multiple bicarb s. His chemistry has showed a creatinine of 5 as well consistent with chronic kidney disease. But initial troponin was also 17 consistent with most likely a very delayed presentation of HI. Current ly intubated on the vent. Has been agitated and has been moving around so he does not meet the crit eria for hypothermia. However, hypotensive and has 1.10 below in the ICU. PAST MEDICAL HISTORY: The best I could obtain, history of hypertension and diabetes, most likely hi story of chronic kidney disease. SOCIAL HISTORY: Apparently he smoked, detail is not clear. ALLERGIES: NO REPORTED ALLERGIES. MEDICATIONS: Unable to obtain. FAMILY HISTORY: Unable to obtain. REVIEW OF SYSTEMS: Unable to obtain except for above-mentioned. PHYSICAL EXAMINATION: VITAL SIGNS: Temperature is not recorded yet actually. Heart rate most recent one is 72. ____ blo od pressure is 110 and systolic pressure 88 over 62. HEENT: Normocephalic, atraumatic. Obese gentleman. Status post intubation on the vent. CARDIOVASCULAR: Regular rate and rhythm, systolic murmur. PULMONARY: Diffuse rhonchi. GASTROINTESTINAL: Obese, soft, nontender. EXTREMITIES: With trivial edema and lower extremity. General appears disheveled gentleman. CHEST: Status post right balloon pump in place. LABORATORY: Initially shows sodium 139, potassium 4.8, BUN of 55, creatinine of 5.5, glucose of 114 . Troponin of 17. WBC of 18.6, hemoglobin 12.3, platelets of 269. EKG showed ____ tachycardia, _ ___ EKG shows inferior ST elevation myocardial infarction. Chest x-ray shows cardiomegaly ____ inspiratory effort with increased intensity in the atele ctasis. ASSESSMENT AND PLAN: 1. Ventricular tachycardia cardiac arrest. 2. Inferior ST elevation myocardial infarction, probably most likely consistent with a late present ation of an inferior ST elevation HI. 3. Congestive heart failure, acute, probably related to systolic dysfunction. 4. Ventricular tachycardia, sustained for cardioversion. 5. Renal failure, probably acute on chronic. 6. Diabetes. 7. History of hypertension. 8. Severe metabolic acidosis. 9. Rule out dyslipidemia. 10. History of smoking. 11. Coagulopathy with INR of 2.8. RECOMMENDATIONS: The patient has been admitted to intensive care unit and ____ balloon pump has be en placed. We will closely monitor him. I have discussed the case with Dr. Vega and Dr. Jose burnett ho will also be ____ Dr. Vega to ask for a consultation for renal as well. Aspirin and Brilinta wi ll be continued for now. Integrilin will be continued the next 12 hours. Supportive care will be c ontinued. Prognosis is very guarded due to his cardiogenic shock, STEMI and multiple comorbidities including renal failure, diabetes, hypertension. Continue with the ICU care. More than 50 minutes of critical care time was spent in management of this patient excluding any pro cedures. Dictated By: SERENA ALCARAZ MD AV/JUANY Conf#: [id number] DID#: [id number] CC: PIO VEGA MD; KATHY VALENCIA MD;*[facility]*
--- NOTE | 2016-11-20 07:38 | SP ---
DATE OF PROCEDURE: 11/19/2016 PROCEDURE PERFORMED: 1. Urgent left heart catheterization, selective right and left coronary angiography. 2. A very complicated ____ stenting of the left circumflex artery from 100% occlusion. 3. Intraaortic balloon pump placement. 4. Right femoral angiogram. 5. Saturation monitoring for more than 2 hours. 6. ____ thrombectomy of the left circumflex artery. SURGEON: Serena Simeon MD CLINICAL INDICATIONS: This is an unfortunate 56-year-old gentleman who presented with shortness of breath, respiratory failure, was noted to be in VT, was cardioverted and had to be intubated. Post- VT EKG showed inferior ST elevation LA. The patient ____ to be brought in for emergent cardiac cath eterization. DESCRIPTION OF PROCEDURE: Written informed consent was ____ obtained from this patient ____, no fam rafa could be found. ____ after discussion with the ER physician. The patient was brought in the [facility] lab ____ in sterile fashion. Right coronary ____ technique, a 6-Maltese sheath was placed in the right femoral artery. JR4 catheter was advanced and engaged in the left main coronary artery. It w as ____ it could not be well engaged or well visualized. A JR4 catheter ____ angiogram was obtained . Pigtail was advanced in the left main, hemodynamics recorded. ____ angiogram was performed. It appeared that the left circumflex artery had 100% occlusion ____ obtuse marginal ____ very difficult to see. I used both ____ guiding catheter ____ engage the left main coronary artery. Different wi res including PT and Collar Turner ____ without support of the balloon was used, able ____ across the lesion into the distal obtuse marginal. A 2.5 balloon was ____ was advanced across the lesion. Angiogram was obtained. MICAH 1 flow was noted at this time. A Pronto was used, and a large amount of clot w as removed. Angiogram was obtained. No more flow was noted at this point. Multiple angioplasties were done. Multiple runs of thrombectomy was done. Flow could not be maintained. I decided to annika ce a stent at the lesion. A 2.5 x 20 ____ was placed across the ____ circumflex artery. It deploye d ____. Angiogram was obtained. ____ flow was noted. Multiple runs of thrombectomy was done. ___ _ Integrilin and verapamil were given distally to the vessel, through the Pronto. Angiogram was obt ained. ____ stent after the previous stent to cover distal area and just in case ____ coming up. A nother 2.25 x 28 mm stent was placed. Angiogram was obtained. After a long ____ only MICAH 1 flow b mari was noted. I decided to avoid further contrast at this point ____ procedure. Catheter and Gl idewire were removed. ____ balloon was advanced ____ fluoroscopy ____. FINDINGS: 1. Left main coronary artery appeared ____ but no significant ____. 2. Left anterior descending artery proximally has about probably 60% to 70% stenosis. ____ circumf celeste artery is 100% occluded right at the site of the obtuse marginal 1. After that, ____ . Obtuse marginal 1 has about 50% stenosis. 3. Right coronary artery is a large, dominant vessel. Multiple areas of about 50% ____, but no hig h-grade focal lesion noted. 4. LVEDP is about 42 mmHg with no significant gradient across aortic valve. TOTAL CONTRAST USED: 130 mL of Visipaque. CONCLUSION: Angioplasty and stenting of the circumflex artery with poor flow. RECOMMENDATIONS: Aggressive medical therapy. ICU care. Intraaortic balloon pump will be continued . Heparin drip will be continued. Dictated By: SERENA SIMEON MD AV/JUANY Conf#: [id number] DID#: [id number] CC: PIO VEGA MD;*End*
[2016-11-20 08:00] LABS: AADO2 Arterial 365.7 mmHg (7.0-24.0); Arterial Base Excess -18.8 mmol/L (-3.0-3); Arterial COHb 0.2 % (0.0-3.0); Arterial Fraction of Oxyhgb 98.6 % (93.0-99.0); Arterial HCO3 7.5 mmol/L (22.0-26.0); Arterial MetHb 0.3 % (0.0-1.5); Arterial Total Hemglobin 11.6 g/dl (12.0-18.0); MODE VENT - AC
[2016-11-20] MEDS: ASPIRIN (EC) 81 MG TAB PO SCH (09:06)
[2016-11-20] MEDS: FAMOTIDINE 20 MG INJ IV SCH (09:06)
[2016-11-20] MEDS: TICAGRELOR 90 MG TABLET PO SCH ×2 (09:07→20:48)
--- NOTE | 2016-11-20 09:25 | RADRPT ---
PROCEDURE: XR Chest. CLINICAL INDICATION: Respiratory failure TECHNIQUE: An AP view of the chest was obtained. COMPARISON: Chest x-ray dated 11/19/2016 FINDINGS: The endotracheal tube tip is approximately 4.7 cm above the margot. The tip of the enteric tube pr ojects over the left upper quadrant. There is a right internal jugular central venous catheter with tip near the cavoatrial junction. There is prominence of the interstitial and central pulmonary vascular markings with small right pl eural effusion. There is elevation of the left diaphragm. No focal airspace opacification or pneu mothorax is seen. The cardiomediastinal silhouette is mildly enlarged . Calcifications are seen wi thin the aortic arch. The osseous structures demonstrate senescent changes. IMPRESSION: 1. Findings suggestive of pulmonary vascular congestion/interstitial edema with small right pleura l effusion. No significant interval change. 2. Mild cardiomegaly and aortic atherosclerosis. 3. Tubes and lines, as described above. RPTAT: .Florence Torrez MD, MD Date Time Electronically viewed and signed by .Florence Torrez MD, on 11/20/2016 09:25 .G/
--- NOTE | 2016-11-20 09:36 | PN ---
Date/Time of Note Date/Time of Note DATE: 11/20/16 TIME: 09:16 Assessment/Plan VTE Prophylaxis VTE Prophylaxis Intervention: contraindicated VTE Contraindication Reason: blood coagulation disorder Lines/Catheters IV Catheter Type (from Nrsg): A Line Central line still needed: Yes (while on Balloon pump ) Urinary Cath still in place: Yes Reason Cath still needed: other (indicate) (NEHA, monitoring UOP ) Assessment/Plan Assessment/Plan 56-year-old male with: 1. ST elevation myocardial infarction with a hemodynamic instability, status post ventricular tachycardia, cardioverted status post angiogram with PCI to the circumflex, currently on a balloon pump. More hemodynamically stable this AM , on Levo and also on Fentanyl and Propofol for sedation Dr. Simeon following, patient was started on Lidocaine gtt overnight, on Brilinta and ASA. Pulmonary critical care following 2. Acute respiratory failure secondary to cardiogenic shock and ST elevation myocardial infarction. Also with history of chronic obstructive pulmonary disease Intubated and sedated on Fentanyl and Propofol CXR with CHF exacerbation, will start diuresis when more stable and OK with cardiology Pulmonary for Vent management. 3. Acute kidney injury on probable chronic kidney disease, likely secondary to acute tubular necrosis in this situation. On Bicarb gtt for metabolic acidosis. Lactic acid down to 2.2 Renal US mostly unremarkable UOP started picking up overnight. Nephrology consult with Dr Welch 4. Diabetes mellitus. His blood sugars are fairly stable. A1c 7.1 Continue sliding scale insulin . 5. Shock Liver, with elevated LFTs and coagulopathy currently. Monitor closely . Avoid hepatotoxic agents 6. Coagulopathy, 2ry to shock liver likely. Monitor, may need FFP if significant bleeding. 7. Obstructive sleep apnea on CPAP at night as outpatient. 8. Tobacco use. Hopefully the patient will quit after this. Nicotine patch as needed. 9. Morbid obesity. Prophylaxis. Pepcid for GI ppx and SCDs. DISPOSITION: Guarded prognosis still and patient remains critical. Subjective 24 Hr Interval Summary Free Text/Dictation Patient remains critical this AM but more stable On Vent, balloon pump, Lidocaine gtt, Levo gtt and sedation with Fentanyl and propofol Exam/Review of Systems Vital Signs Vitals Vital Signs Date Time Temp Pulse Resp B/P Pulse Ox O2 Delivery O2 Flow Rate FiO2 11/20/16 08:00 40 11/20/16 08:00 98.6 73 20 120/73 100 Mechanical Ventilator 11/19/16 13:42 15 Intake and Output 11/19/16 11/19/16 11/20/16 15:00 23:00 07:00 Intake Total 802.5 ml 1051.12 ml Output Total 140 ml 420 ml Balance 662.5 ml 631.12 ml Exam Constitutional: other (sedated and intubated ) ENMT: intubated Neck: other (right IJ site with hematoma ) Respiratory: diminished breath sounds (bases ), other (on Vent support ) Cardiovascular: nl pulses, other (on Lidocaine gtt ), regular rate and rhythm Gastrointestinal: non-tender, soft Musculoskeletal: nl extremities to inspection, other (no edema, clibbign or cyanosis ) Extremities: normal pulses, other (on balloon pump) Neurological: other (sedated ) Results Result Diagram: 11/20/16 0400 11/20/16 0400 Results 24 hrs Laboratory Tests Test 11/19/16 12:07 11/19/16 12:09 11/19/16 15:04 11/19/16 16:33 White Blood Count 18.6 H Red Blood Count 4.13 L Hemoglobin 12.3 L Hematocrit 39.8 L Mean Corpuscular Volume 96.4 Mean Corpuscular Hemoglobin 29.8 Mean Corpuscular Hemoglobin Concent 30.9 L Red Cell Distribution Width 13.2 Platelet Count 269 Mean Platelet Volume 11.3 H Neutrophils % 79.3 H Lymphocytes % 11.5 L Monocytes % 7.7 Eosinophils % 0.0 Basophils % 0.2 Nucleated Red Blood Cells % 0.1 H Neutrophils # 14.8 H Lymphocytes # 2.2 Monocytes # 1.4 H Eosinophils # 0.0 Basophils # 0.0 Nucleated Red Blood Cells # 0.0 Prothrombin Time 30.0 H Prothrombin Time Ratio 2.3 INR International Normalized Ratio 2.81 Activated Partial Thromboplast Time 36.5 H Sodium Level 139 Potassium Level 4.8 Chloride Level 101 Carbon Dioxide Level 10 L Anion Gap 33 H Blood Urea Nitrogen 55 H Creatinine 5.05 H Glucose Level 114 Calcium Level 9.3 Troponin I 17.100 *H Blood Gas Specimen Source Blood arterial Blood arterial Arterial Blood Date Drawn 11/19/2016 2:10:00 PM 11/19/2016 2:55:49 PM Arterial Blood pH (Temp corrected) 7.202 *L 7.308 L Arterial Blood pCO2 (Temp correct) 19.1 L 20.5 L Arterial Blood pO2 (Temp corrected) 330.7 H 269.6 H Arterial Blood HCO3 7.5 *L 10.2 L Arterial Blood Base Excess -18.8 L -14.5 L Arterial Blood Oxygen Saturation 99.1 H 98.8 H Keron Test N/A N/A Arterial Blood Gas Puncture Site A-Line A-Line Arterial Blood Carboxyhemoglobin 0.2 0.1 Arterial Blood Methemoglobin 0.3 0.3 Blood Gas A-a O2 Differential 365.7 H 425.5 H Oxyhemoglobin Percent 98.6 98.4 Total Hemoglobin 11.6 L 11.2 L Blood Gas Temperature 36.0 36.0 Blood Gas Respiration Rate 20.0 20.0 Blood Gas Actual Respiration Rate 30 30 Blood Gas Modality VENT - AC VENT - AC FiO2 100.0 100.0 Blood Gas Tidal Volume 500.0 500.0 Blood Gas Low PEEP Setting 5.0 5.0 Blood Gas Critical Value Read Back Enedelia ruiz r.n. Blood Gas Notified Whom ab ab Blood Gas Notified Time 11/19/2016 2:17:00 PM 11/19/2016 3:09:28 PM Bedside Glucose 147 Test 11/19/16 16:40 11/19/16 17:52 11/19/16 20:10 11/19/16 20:39 White Blood Count 19.8 H Red Blood Count 3.40 L Hemoglobin 10.5 L Hematocrit 31.0 #L Mean Corpuscular Volume 91.2 Mean Corpuscular Hemoglobin 30.9 Mean Corpuscular Hemoglobin Concent 33.9 Red Cell Distribution Width 13.2 Platelet Count 209 # Mean Platelet Volume 11.7 H Neutrophils % 88.1 H Lymphocytes % 6.9 L Monocytes % 4.0 Eosinophils % 0.0 Basophils % 0.1 Nucleated Red Blood Cells % 0.1 H Neutrophils # 17.5 H Lymphocytes # 1.4 Monocytes # 0.8 Eosinophils # 0.0 Basophils # 0.0 Nucleated Red Blood Cells # 0.0 Sodium Level 137 Potassium Level 4.5 Chloride Level 102 Carbon Dioxide Level 12 L Anion Gap 28 H Blood Urea Nitrogen 62 H Creatinine 4.43 H Glucose Level 137 Lactic Acid Level 9.7 *H Calcium Level 8.6 Magnesium Level 2.3 Total Bilirubin 0.5 Direct Bilirubin 0.00 Indirect Bilirubin 0.5 Aspartate Amino Transf (AST/SGOT) 5831 H Alanine Aminotransferase (ALT/SGPT) 3909 H Alkaline Phosphatase 83 Creatine Kinase 514 H 510 H Creatine Kinase Index 6.5 7.2 Creatinine Kinase MB (Mass) 33.30 H 36.80 H Troponin I 19.000 *H 19.900 *H Total Protein 6.2 Albumin 3.4 Globulin 2.80 Albumin/Globulin Ratio 1.21 Bedside Glucose 104 156 Test 11/19/16 21:50 11/20/16 00:17 11/20/16 00:50 11/20/16 00:55 Sodium Level 133 L Potassium Level 4.4 Chloride Level 101 Carbon Dioxide Level 18 L Anion Gap 18 #H Blood Urea Nitrogen 69 H Creatinine 4.32 H Glucose Level 208 Calcium Level 8.1 L Phosphorus Level 7.4 H Magnesium Level 2.3 Blood Gas Specimen Source Blood arterial Arterial Blood Date Drawn 11/20/2016 12:17:33 AM Arterial Blood pH (Temp corrected) 7.400 Arterial Blood pCO2 (Temp correct) 26.6 L Arterial Blood pO2 (Temp corrected) 210.5 H Arterial Blood HCO3 16.1 L Arterial Blood Base Excess -7.3 L Arterial Blood Oxygen Saturation 98.8 H Keron Test N/A Arterial Blood Gas Puncture Site A-Line Arterial Blood Carboxyhemoglobin 0.2 Arterial Blood Methemoglobin 0.1 Blood Gas A-a O2 Differential 188.0 H Oxyhemoglobin Percent 98.5 Total Hemoglobin 11.5 L Blood Gas Temperature 37.0 Blood Gas Respiration Rate 20.0 Blood Gas Actual Respiration Rate 28 Blood Gas Modality VENT - AC FiO2 60.0 Blood Gas Tidal Volume 500.0 Blood Gas Mean Airway Pressure 14 Blood Gas Low PEEP Setting 7.0 Blood Gas Inspiratory Pressure 27.0 Blood Gas Notified Whom AILYN RN DISCHARGE Blood Gas Notified Time 11/20/2016 12:29:30 AM Creatine Kinase 538 H Creatine Kinase Index 7.3 Creatinine Kinase MB (Mass) 39.50 H Troponin I 21.300 *H Bedside Glucose 178 Test 11/20/16 04:00 11/20/16 04:55 11/20/16 05:00 White Blood Count 15.9 H Red Blood Count 3.06 L Hemoglobin 9.3 L Hematocrit 27.4 L Mean Corpuscular Volume 89.5 Mean Corpuscular Hemoglobin 30.4 Mean Corpuscular Hemoglobin Concent 33.9 Red Cell Distribution Width 13.3 Platelet Count 200 Mean Platelet Volume 11.8 H Neutrophils % 83.3 H Lymphocytes % 13.6 L Monocytes % 2.0 Eosinophils % 0.1 Basophils % 0.3 Nucleated Red Blood Cells % 0.4 H Neutrophils # 13.2 H Lymphocytes # 2.2 Monocytes # 0.3 Eosinophils # 0.0 Basophils # 0.0 Nucleated Red Blood Cells # 0.1 H Prothrombin Time 28.3 H Prothrombin Time Ratio 2.2 INR International Normalized Ratio 2.61 Activated Partial Thromboplast Time 33.5 Sodium Level 137 Potassium Level 4.0 Chloride Level 101 Carbon Dioxide Level 21 Anion Gap 19 H Blood Urea Nitrogen 77 H Creatinine 4.39 H Glucose Level 177 Hemoglobin A1c 7.1 H Lactic Acid Level 2.2 Calcium Level 7.8 L Phosphorus Level 7.1 H Magnesium Level 2.3 Total Bilirubin 0.4 Direct Bilirubin 0.00 Indirect Bilirubin 0.4 Aspartate Amino Transf (AST/SGOT) 6745 H Alanine Aminotransferase (ALT/SGPT) 5276 H Alkaline Phosphatase 80 Total Protein 5.7 L Albumin 3.0 L Globulin 2.70 Albumin/Globulin Ratio 1.11 Triglycerides Level 160 H Cholesterol Level 93 L LDL Cholesterol, Calculated 40 HDL Cholesterol 21 L Cholesterol/HDL Ratio 4.4 Bedside Glucose 134 Blood Gas Specimen Source Blood arterial Arterial Blood Date Drawn 11/20/2016 4:50:36 AM Arterial Blood pH (Temp corrected) 7.427 Arterial Blood pCO2 (Temp correct) 31.1 L Arterial Blood pO2 (Temp corrected) 172.8 H Arterial Blood HCO3 20.0 L Arterial Blood Base Excess -3.5 L Arterial Blood Oxygen Saturation 98.5 H Keron Test N/A Arterial Blood Gas Puncture Site A-Line Arterial Blood Carboxyhemoglobin 0.2 Arterial Blood Methemoglobin 0.3 Blood Gas A-a O2 Differential 112.7 H Oxyhemoglobin Percent 98.0 Total Hemoglobin 11.4 L Blood Gas Temperature 37.0 Blood Gas Respiration Rate 20.0 Blood Gas Actual Respiration Rate 27 Blood Gas Modality VENT - AC FiO2 45.0 Blood Gas Tidal Volume 500.0 Blood Gas Low PEEP Setting 7.0 Blood Gas Notified Whom UP Blood Gas Notified Time 11/20/2016 5:04:35 AM Medications Medications Current Medications Aspirin (Halfprin) 81 mg DAILY PO Last administered on 11/20/16t 09:06; Admin Dose 81 MG; Start 11/20/16 at 09:00 Ticagrelor (Brilinta) 90 mg BID PO Last administered on 11/20/16 09:07; Admin Dose 90 MG; Start 11/19/16 at 21:00 Miscellaneous Information Hold all Metformin ... ONCE XX ; Start 11/19/16 at 15: 30; Stop 11/21/16 at 15:29 Propofol 100 ml @ 3.818 mls/ hr Q12H IV Last administered on 11/20/16 04:52; Admin Dose 22.909 MLS/HR; Start 11/19/16 at 16:30 Fentanyl 100 ml @ 2.5 mls/hr TITRATE IV Last administered on 11/19/16 17:19; Admin Dose 2.5 MLS/HR; Start 11/19/16 at 17:00 Norepinephrine/ Dextrose (Levophed/D5W) 500 ml @ 1.875 mls/ hr TITRATE IV Last administered on 11/19/16 20:25; Admin Dose 10 MLS/HR; Start 11/19/16 at 18 :00; Stop 11/20/16 at 17:59 Ondansetron HCl (Zofran Inj) 4 mg Q6H PRN IV NAUSEA AND/OR VOMITING; Start 04/27 at 17:00 Acetaminophen (Tylenol Liquid) 650 mg Q6H PRN PO PAIN LEVEL 1-3 OR FEVER; Start 11/19/16 at 17:00 Acetaminophen (Tylenol Supp) 650 mg Q4H PRN AL PAIN LEVEL 1-3 OR FEVER; Start 11/19/16 at 17:00 Docusate Sodium (Colace) 100 mg Q12H PRN PO CONSTIPATION; Start 11/19/16 at 17: 00 Magnesium Hydroxide (Milk Of Mag) 30 ml DAILY PRN PO CONSTIPATION; Start at 17:00 Bisacodyl (Dulcolax Supp) 10 mg DAILY PRN AL CONSTIPATION; Start 11/19/16 at 17 :00 Famotidine (Pepcid Iv) 20 mg DAILY IV Last administered on 11/20/16 09:06; Admin Dose 20 MG; Start 11/19/16 at 17:00 Insulin Aspart (Novolog Insulin Pen) NOVOLOG *MODERATE* ALGORI... Q4 SC Last administered on 11/20/16 00:58; Admin Dose 2 UNIT; Start 11/19/16 at 17:30 Miscellaneous Information 1 ea NOTE XX ; Start 11/19/16 at 17:30 Glucose (Glutose) 15 gm Q15M PRN PO DECREASED GLUCOSE; Start 11/19/16 at 17:30 Glucose (Glutose) 22.5 gm Q15M PRN PO DECREASED GLUCOSE; Start 11/19/16 at 17: 30 Dextrose (D50w Syringe) 25 ml Q15M PRN IV DECREASED GLUCOSE; Start 11/19/16 at 17:30 Dextrose (D50w Syringe) 50 ml Q15M PRN IV DECREASED GLUCOSE; Start 11/19/16 at 17:30 Glucagon (Glucagen) 1 mg Q15M PRN IM DECREASED GLUCOSE; Start 11/19/16 at 17:30 Glucose 15 gm 15 gm Q15M PRN BUCCAL DECREASED GLUCOSE; Start 11/19/16 at 17:30 Sodium Bicarbonate 150 meq/Dextrose 1,000 ml @ 75 mls/hr [id number] IV Last administered on 11/19/16 20:20; Admin Dose 75 MLS/HR; Start 11/19/16 at 19:11 Lidocaine HCl/ Dextrose (Lidocaine 2 Gm/ D5W) 500 ml @ 15 mls/hr Q24H IV Last administered on 11/19/16 22:53; Admin Dose 15 MLS/HR; Start 11/19/16 at 23:00 Procedures Procedures PROCEDURE: XR Chest. CLINICAL INDICATION: Central line placement. TECHNIQUE: Single frontal view of the chest. COMPARISON: Today, about 5 hours ago. FINDINGS: Endotracheal intubation in place with tip about 55 mm above the margot. Nasogastric tube in place with tip and side port in the proximal to mid stomach. New right central venous line in place with tip at the superior vena cava right atrial junction. New transcutaneous pacing pads seen over the right chest and left upper quadrant of the abdomen. Cardiomegaly and atherosclerotic calcifications in the thoracic aorta. Mild right lung air space disease and mild pulmonary vascular congestion. No signs of pleural fluid or pneumothorax are seen. The osseous structures and soft tissues are unremarkable. IMPRESSION: 1. New right central venous line in place with tip in superior vena cava right atrial junction. 2. Mild right lung air space disease and pulmonary vascular congestion. PROCEDURE: Retroperitoneal US. CLINICAL INDICATION: Renal insufficiency TECHNIQUE: Multiple sonographic images of the kidneys and retroperitoneum were obtained. The images were reviewed on a PACS workstation. COMPARISON: No prior studies are available for comparison. FINDINGS: The kidneys are normal in size, contour, cortical thickness and cortical echogenicity. The right kidney measures 9.8 cm. The left kidney measures 10.6 cm. No kidney stones are visualized. There is no evidence for hydronephrosis. The urinary bladder is not visualized. RPTAT: AA IMPRESSION: Unremarkable retroperitoneal ultrasound. .Yamil Bautista MD, MD Date Time Electronically viewed and signed by .Yamil Bautista MD, MD on 11/19/2016 18: 11 PIO VEGA Nov 20, 2016 09:31
--- NOTE | 2016-11-20 09:51 | CONS ---
Date/Time of Note Date/Time of Note DATE: 11/20/16 TIME: 09:49 Consult Date/Type/Reason Admit Date/Time Nov 19, 2016 at 16:09 Initial Consult Date Type of Consultation: Pulmonary ICU Subjective Patient intubated sedated on mechanical ventilation. Opens eyes and follows simple commands off sedation. Continues intra-aortic balloon pump and vasopressor support in addition to mechanical ventilation. Objective Vital Signs Date Time Temp Pulse Resp B/P Pulse Ox O2 Delivery O2 Flow Rate FiO2 11/20/16 09:15 73 20 97/52 100 Mechanical Ventilator 11/20/16 08:00 40 11/20/16 08:00 98.6 11/19/16 13:42 15 Intake and Output 11/19/16 11/19/16 11/20/16 14:59 22:59 06:59 Intake Total 672.0 ml 1054.9 ml Output Total 110 ml 375 ml Balance 562.0 ml 679.9 ml Exam PHYSICAL EXAMINATION: VITAL SIGNS: As above HEENT: ET tube is in place. He has a very large neck and jugular venous pressures are unable to be assessed. CARDIOVASCULAR: Distant S1 and S2 with a II/ systolic murmur heard best at the apex. CHEST: There are some coarse breath sounds heard at the bases, otherwise he is clear to auscultation anteriorly. ABDOMEN: Obese, nontender, no hepatosplenomegaly. EXTREMITIES: No cyanosis, clubbing or edema. Results/Medications Result Diagram: 11/20/16 0400 11/20/16 0400 Results 24 hrs Laboratory Tests Test 11/19/16 12:07 11/19/16 12:09 11/19/16 15:04 11/19/16 16:33 White Blood Count 18.6 H Red Blood Count 4.13 L Hemoglobin 12.3 L Hematocrit 39.8 L Mean Corpuscular Volume 96.4 Mean Corpuscular Hemoglobin 29.8 Mean Corpuscular Hemoglobin Concent 30.9 L Red Cell Distribution Width 13.2 Platelet Count 269 Mean Platelet Volume 11.3 H Neutrophils % 79.3 H Lymphocytes % 11.5 L Monocytes % 7.7 Eosinophils % 0.0 Basophils % 0.2 Nucleated Red Blood Cells % 0.1 H Neutrophils # 14.8 H Lymphocytes # 2.2 Monocytes # 1.4 H Eosinophils # 0.0 Basophils # 0.0 Nucleated Red Blood Cells # 0.0 Prothrombin Time 30.0 H Prothrombin Time Ratio 2.3 INR International Normalized Ratio 2.81 Activated Partial Thromboplast Time 36.5 H Sodium Level 139 Potassium Level 4.8 Chloride Level 101 Carbon Dioxide Level 10 L Anion Gap 33 H Blood Urea Nitrogen 55 H Creatinine 5.05 H Glucose Level 114 Calcium Level 9.3 Troponin I 17.100 *H Blood Gas Specimen Source Blood arterial Blood arterial Arterial Blood Date Drawn 11/19/2016 2:10:00 PM 11/19/2016 2:55:49 PM Arterial Blood pH (Temp corrected) 7.202 *L 7.308 L Arterial Blood pCO2 (Temp correct) 19.1 L 20.5 L Arterial Blood pO2 (Temp corrected) 330.7 H 269.6 H Arterial Blood HCO3 7.5 *L 10.2 L Arterial Blood Base Excess -18.8 L -14.5 L Arterial Blood Oxygen Saturation 99.1 H 98.8 H Keron Test N/A N/A Arterial Blood Gas Puncture Site A-Line A-Line Arterial Blood Carboxyhemoglobin 0.2 0.1 Arterial Blood Methemoglobin 0.3 0.3 Blood Gas A-a O2 Differential 365.7 H 425.5 H Oxyhemoglobin Percent 98.6 98.4 Total Hemoglobin 11.6 L 11.2 L Blood Gas Temperature 36.0 36.0 Blood Gas Respiration Rate 20.0 20.0 Blood Gas Actual Respiration Rate 30 30 Blood Gas Modality VENT - AC VENT - AC FiO2 100.0 100.0 Blood Gas Tidal Volume 500.0 500.0 Blood Gas Low PEEP Setting 5.0 5.0 Blood Gas Critical Value Read Back Enedelia ruiz r.n. Blood Gas Notified Whom ab ab Blood Gas Notified Time 11/19/2016 2:17:00 PM 11/19/2016 3:09:28 PM Bedside Glucose 147 Test 11/19/16 16:40 11/19/16 17:52 11/19/16 20:10 11/19/16 20:39 White Blood Count 19.8 H Red Blood Count 3.40 L Hemoglobin 10.5 L Hematocrit 31.0 #L Mean Corpuscular Volume 91.2 Mean Corpuscular Hemoglobin 30.9 Mean Corpuscular Hemoglobin Concent 33.9 Red Cell Distribution Width 13.2 Platelet Count 209 # Mean Platelet Volume 11.7 H Neutrophils % 88.1 H Lymphocytes % 6.9 L Monocytes % 4.0 Eosinophils % 0.0 Basophils % 0.1 Nucleated Red Blood Cells % 0.1 H Neutrophils # 17.5 H Lymphocytes # 1.4 Monocytes # 0.8 Eosinophils # 0.0 Basophils # 0.0 Nucleated Red Blood Cells # 0.0 Sodium Level 137 Potassium Level 4.5 Chloride Level 102 Carbon Dioxide Level 12 L Anion Gap 28 H Blood Urea Nitrogen 62 H Creatinine 4.43 H Glucose Level 137 Lactic Acid Level 9.7 *H Calcium Level 8.6 Magnesium Level 2.3 Total Bilirubin 0.5 Direct Bilirubin 0.00 Indirect Bilirubin 0.5 Aspartate Amino Transf (AST/SGOT) 5831 H Alanine Aminotransferase (ALT/SGPT) 3909 H Alkaline Phosphatase 83 Creatine Kinase 514 H 510 H Creatine Kinase Index 6.5 7.2 Creatinine Kinase MB (Mass) 33.30 H 36.80 H Troponin I 19.000 *H 19.900 *H Total Protein 6.2 Albumin 3.4 Globulin 2.80 Albumin/Globulin Ratio 1.21 Bedside Glucose 104 156 Test 11/19/16 21:50 11/20/16 00:17 11/20/16 00:50 11/20/16 00:55 Sodium Level 133 L Potassium Level 4.4 Chloride Level 101 Carbon Dioxide Level 18 L Anion Gap 18 #H Blood Urea Nitrogen 69 H Creatinine 4.32 H Glucose Level 208 Calcium Level 8.1 L Phosphorus Level 7.4 H Magnesium Level 2.3 Blood Gas Specimen Source Blood arterial Arterial Blood Date Drawn 11/20/2016 12:17:33 AM Arterial Blood pH (Temp corrected) 7.400 Arterial Blood pCO2 (Temp correct) 26.6 L Arterial Blood pO2 (Temp corrected) 210.5 H Arterial Blood HCO3 16.1 L Arterial Blood Base Excess -7.3 L Arterial Blood Oxygen Saturation 98.8 H Keron Test N/A Arterial Blood Gas Puncture Site A-Line Arterial Blood Carboxyhemoglobin 0.2 Arterial Blood Methemoglobin 0.1 Blood Gas A-a O2 Differential 188.0 H Oxyhemoglobin Percent 98.5 Total Hemoglobin 11.5 L Blood Gas Temperature 37.0 Blood Gas Respiration Rate 20.0 Blood Gas Actual Respiration Rate 28 Blood Gas Modality VENT - AC FiO2 60.0 Blood Gas Tidal Volume 500.0 Blood Gas Mean Airway Pressure 14 Blood Gas Low PEEP Setting 7.0 Blood Gas Inspiratory Pressure 27.0 Blood Gas Notified Whom [facility] Blood Gas Notified Time 11/20/2016 12:29:30 AM Creatine Kinase 538 H Creatine Kinase Index 7.3 Creatinine Kinase MB (Mass) 39.50 H Troponin I 21.300 *H Bedside Glucose 178 Test 11/20/16 04:00 11/20/16 04:55 11/20/16 05:00 11/20/16 09:05 White Blood Count 15.9 H Red Blood Count 3.06 L Hemoglobin 9.3 L Hematocrit 27.4 L Mean Corpuscular Volume 89.5 Mean Corpuscular Hemoglobin 30.4 Mean Corpuscular Hemoglobin Concent 33.9 Red Cell Distribution Width 13.3 Platelet Count 200 Mean Platelet Volume 11.8 H Neutrophils % 83.3 H Lymphocytes % 13.6 L Monocytes % 2.0 Eosinophils % 0.1 Basophils % 0.3 Nucleated Red Blood Cells % 0.4 H Neutrophils # 13.2 H Lymphocytes # 2.2 Monocytes # 0.3 Eosinophils # 0.0 Basophils # 0.0 Nucleated Red Blood Cells # 0.1 H Prothrombin Time 28.3 H Prothrombin Time Ratio 2.2 INR International Normalized Ratio 2.61 Activated Partial Thromboplast Time 33.5 Sodium Level 137 Potassium Level 4.0 Chloride Level 101 Carbon Dioxide Level 21 Anion Gap 19 H Blood Urea Nitrogen 77 H Creatinine 4.39 H Glucose Level 177 Hemoglobin A1c 7.1 H Lactic Acid Level 2.2 Calcium Level 7.8 L Phosphorus Level 7.1 H Magnesium Level 2.3 Total Bilirubin 0.4 Direct Bilirubin 0.00 Indirect Bilirubin 0.4 Aspartate Amino Transf (AST/SGOT) 6745 H Alanine Aminotransferase (ALT/SGPT) 5276 H Alkaline Phosphatase 80 Total Protein 5.7 L Albumin 3.0 L Globulin 2.70 Albumin/Globulin Ratio 1.11 Triglycerides Level 160 H Cholesterol Level 93 L LDL Cholesterol, Calculated 40 HDL Cholesterol 21 L Cholesterol/HDL Ratio 4.4 Bedside Glucose 134 111 Blood Gas Specimen Source Blood arterial Arterial Blood Date Drawn 11/20/2016 4:50:36 AM Arterial Blood pH (Temp corrected) 7.427 Arterial Blood pCO2 (Temp correct) 31.1 L Arterial Blood pO2 (Temp corrected) 172.8 H Arterial Blood HCO3 20.0 L Arterial Blood Base Excess -3.5 L Arterial Blood Oxygen Saturation 98.5 H Keron Test N/A Arterial Blood Gas Puncture Site A-Line Arterial Blood Carboxyhemoglobin 0.2 Arterial Blood Methemoglobin 0.3 Blood Gas A-a O2 Differential 112.7 H Oxyhemoglobin Percent 98.0 Total Hemoglobin 11.4 L Blood Gas Temperature 37.0 Blood Gas Respiration Rate 20.0 Blood Gas Actual Respiration Rate 27 Blood Gas Modality VENT - AC FiO2 45.0 Blood Gas Tidal Volume 500.0 Blood Gas Low PEEP Setting 7.0 Blood Gas Notified Whom UP Blood Gas Notified Time 11/20/2016 5:04:35 AM Medications Current Medications Aspirin (Halfprin) 81 mg DAILY PO Last administered on 11/20/16 09:06; Admin Dose 81 MG; Start 11/20/16 at 09:00 Ticagrelor (Brilinta) 90 mg BID PO Last administered on 11/20/16 09:07; Admin Dose 90 MG; Start 11/19/16 at 21:00 Miscellaneous Information Hold all Metformin ... ONCE XX ; Start 11/19/16 at 15: 30; Stop 11/21/16 at 15:29 Propofol 100 ml @ 3.818 mls/ hr Q12H IV Last administered on 11/20/16 09:29; Admin Dose 19.091 MLS/HR; Start 11/19/16 at 16:30 Fentanyl 100 ml @ 2.5 mls/hr TITRATE IV Last administered on 11/19/16 17:19; Admin Dose 2.5 MLS/HR; Start 11/19/16 at 17:00 Norepinephrine/ Dextrose (Levophed/D5W) 500 ml @ 1.875 mls/ hr TITRATE IV Last administered on 11/19/16 20:25; Admin Dose 10 MLS/HR; Start 11/19/16 at 18 :00; Stop 11/20/16 at 17:59 Ondansetron HCl (Zofran Inj) 4 mg Q6H PRN IV NAUSEA AND/OR VOMITING; Start 04/27 at 17:00 Acetaminophen (Tylenol Liquid) 650 mg Q6H PRN PO PAIN LEVEL 1-3 OR FEVER; Start 11/19/16 at 17:00 Acetaminophen (Tylenol Supp) 650 mg Q4H PRN SC PAIN LEVEL 1-3 OR FEVER; Start 11/19/16 at 17:00 Docusate Sodium (Colace) 100 mg Q12H PRN PO CONSTIPATION; Start 11/19/16 at 17: 00 Magnesium Hydroxide (Milk Of Mag) 30 ml DAILY PRN PO CONSTIPATION; Start at 17:00 Bisacodyl (Dulcolax Supp) 10 mg DAILY PRN SC CONSTIPATION; Start 11/19/16 at 17 :00 Famotidine (Pepcid Iv) 20 mg DAILY IV Last administered on 11/20/16 09:06; Admin Dose 20 MG; Start 11/19/16 at 17:00 Insulin Aspart (Novolog Insulin Pen) NOVOLOG *MODERATE* ALGORI... Q4 SC Last administered on 11/20/16 00:58; Admin Dose 2 UNIT; Start 11/19/16 at 17:30 Miscellaneous Information 1 ea NOTE XX ; Start 11/19/16 at 17:30 Glucose (Glutose) 15 gm Q15M PRN PO DECREASED GLUCOSE; Start 11/19/16 at 17:30 Glucose (Glutose) 22.5 gm Q15M PRN PO DECREASED GLUCOSE; Start 11/19/16 at 17: 30 Dextrose (D50w Syringe) 25 ml Q15M PRN IV DECREASED GLUCOSE; Start 11/19/16 at 17:30 Dextrose (D50w Syringe) 50 ml Q15M PRN IV DECREASED GLUCOSE; Start 11/19/16 at 17:30 Glucagon (Glucagen) 1 mg Q15M PRN IM DECREASED GLUCOSE; Start 11/19/16 at 17:30 Glucose 15 gm 15 gm Q15M PRN BUCCAL DECREASED GLUCOSE; Start 11/19/16 at 17:30 Sodium Bicarbonate 150 meq/Dextrose 1,000 ml @ 75 mls/hr [id number] IV Last administered on 11/19/16 20:20; Admin Dose 75 MLS/HR; Start 11/19/16 at 19:11 Lidocaine HCl/ Dextrose (Lidocaine 2 Gm/ D5W) 500 ml @ 15 mls/hr Q24H IV Last administered on 11/19/16 22:53; Admin Dose 15 MLS/HR; Start 11/19/16 at 23:00 Assessment/Plan Chief Complaint/Hosp Course IMPRESSION: 1. Status post ventricular tachycardia, ventricular fibrillation arrest, likely stemming from ST elevation myocardial infarction. Status post left heart catheterization and PCI to the circumflex. 2. Cardiogenic shock. 3. Acute renal failure, likely acute tubular necrosis in the setting of his ventricular fibrillation/V tachycardia arrest. 4. Diabetes. 5. Hypertensive heart disease. RECOMMENDATIONS: 1. Ventilatory support to adjust vent settings to optimize patient's synchrony and mechanics. 2. Continue propofol for sedation; fentanyl for pain control 3. Continue Levophed and may need to add dopamine for additional hemodynamic support 4. Continue to follow urine output and if needed, may require bicarbonate 5. Given his low responsiveness there is at this point, no indication for hypothermia protocol. 6. DVT and gastrointestinal prophylaxis to be implemented. Disposition Continue ICU care Discussed with primary team Critical care 35 minutes. Problems: YOANDY RICHARD MD, [facility] Nov 20, 2016 09:51
[2016-11-20] MEDS: SODIUM BICARBONATE (IV ADD) 150 MEQ in DEXTROSE 5% 850 ML IV SCH ×2 (11:16→23:35)
--- NOTE | 2016-11-20 14:03 | RADRPT ---
Vent Rate: 73 bpm RR Interval: 0 msec MI Interval: 150 msec QRS Duration: 106 msec QT Interval: 496 msec QTC Interval: 546 msec P-R-T [place]: 57 - 66 - -48 degrees Normal sinus rhythm ST amp; T wave abnormality, consider inferior and lateral ischemia Prolonged QT Abnormal ECG Electronically Signed By: Yobany Lima [id number]
[2016-11-20 14:51] LABS: PROTEIN/CREAT RATIO 0.72 RATIO
--- NOTE | 2016-11-20 16:02 | RADRPT ---
Echocardiogram Report Patient Name: ALLYSON MORENO Gender: Male Date: 1960 Study Date: 20-Nov-2016 Display Fabricator: Lakeshia Myers RDCS Location: 106 Ref. Physician: SERENA SIMEON Quality: Good Procedures: Transthoracic echocardiogram with complete 2D, M-Mode, and doppler examination. Indications: Tachycardia. 2D/M Mode Doppler Measurement Value Normal Ranges Measurement Value Normal Ranges LVIDd 2D 5.1 3.5 - 5.6 cm AV Peak Rodolfo 1.3 m/sec LVIDs 2D 3.0 2.1 - 4.1 cm AV Peak PG 7.0 mmHg FS 2D 40.7 % LVOT Peak Rodolfo 1.0 m/sec LVPWd 2D 1.6 0.6 - 1.1 cm LVOT Peak PG 4.0 mmHg IVSd 2D 1.7 0.6 - 1.1 cm MV E Peak Rodolfo 0.8 m/sec IVS/LVPW 2D 1.1 MV A Peak Rodolfo 0.5 m/sec AoR Diam 2D 3.5 2.0 - 3.7 cm MV E/A 1.7 LA/Ao 2D 1 0 - 1 MV Decel Time 162 msec EDV 2D 136.0 cm3 MV E/A 1.7 ESV 2D 28.4 cm3 TR Peak Rodolfo 3.1 m/sec LA Dimen 2D 5.0 2.3 - 4.0 cm TR Peak PG 37.0 mmHg RVSP 47.0 mmHg Findings Left Ventricle: Normal left ventricular cavity size. Severe concentric left ventricular hypertrophy. Mild global left ventricular systolic dysfunction. Ejection fraction is visually estimated at 45 %. These segments of the LV are hypokinetic inferior base segment and inferior mid segment. Right Ventricle: Normal right ventricular size. Normal right ventricular systolic function. Left Atrium: There is moderate enlargement of left atrium. Right Atrium: The right atrium is normal in size. Mitral Valve: Mitral valve leaflets appear mildly thickened. Mild mitral annular calcification. Mild mitral valve regurgitation. Aortic Valve: No hemodynamically significant aortic stenosis by doppler. Aortic cusps appear mildly calcified. Trace aortic valve regurgitation. Tricuspid Valve: Normal appearance of the tricuspid valve. Estimated peak PA systolic pressure 52 mmHg. There is mild tricuspid regurgitation. Pulmonic Valve: Pulmonic valve not well visualized. Pericardium: Normal pericardium with no significant pericardial effusion. Aorta: Normal aortic root. IVC: Dilated IVC without respiratory collapse, however, patient on ventilator. Conclusions 1.Normal left ventricular cavity size. Severe concentric left ventricular hypertrophy. Mild global left ventricular systolic dysfunction. Ejection fraction is visually estimated at 45 %. These segments of the LV are hypokinetic inferior base segment and inferior mid segment. 2.There is moderate enlargement of left atrium. 3.Mitral valve leaflets appear mildly thickened. Mild mitral annular calcification. Mild mitral valve regurgitation. 4.No hemodynamically significant aortic stenosis by doppler. Aortic cusps appear mildly calcified. Trace aortic valve regurgitation. 5.Normal appearance of the tricuspid valve. Estimated peak PA systolic pressure 52 mmHg. There is mild tricuspid regurgitation. 6.Dilated IVC without respiratory collapse, however, patient on ventilator. Electronically Signed By: Serena Simeon 20-Nov-2016 16:01:00 Patient Name: ALLYSON MORENO Study Date: 20-Nov-2016 [id number]
[2016-11-20] MEDS ORDERED: PHYTONADIONE 10 MG/ML INJ SC ONE (16:30)
--- NOTE | 2016-11-20 16:56 | CONS ---
DATE OF ADMISSION: 11/19/2016 DATE OF CONSULTATION: 11/20/2016 NEPHROLOGY CONSULTATION REFERRING PHYSICIAN: Dr. Escobar REASON FOR CONSULTATION: Acute kidney injury versus acute kidney injury on possible chronic kidney disease, acute respiratory failure. HISTORY OF PRESENT ILLNESS: This is a 56-year-old male with a past medical history of diabetes vance itus type 2, history of obstructive sleep apnea who previously had a possible history of chronic kid elgin disease with a baseline creatinine around 1.4 to 1.5 secondary to diabetic nephropathy. The pat ient gets admitted with ST elevation myocardial infarctions with hemodynamic instability. The patie nt had a ventricular tachycardia, cardioverted, had an angiogram with a PCI to the circumflex. Curr ently the patient has an intraaortic balloon pump in place. The patient is hemodynamically stable. He is currently on a Levophed drip and also on fentanyl and propofol drip for sedation. Cardiology has been followed. The patient had acute respiratory failure secondary to cardiogenic shock and ST elevation myocardial infarction. He is currently intubated on ventilator. He is also noted to hav e a severe metabolic acidosis requiring bicarbonate drip. He had acute kidney injury on probable ch ronic kidney disease secondary to acute tubular necrosis, and nephrology was consulted for NEHA on CK D. The patient's urine output has been very low yesterday the whole day but has been slightly impro ving at this point, and the patient's last urine output has been around 30 to 35 mL per hour. His B UN was 77, creatinine is 4.39, and potassium has been stable, bicarbonate has been around 21. His l iver enzymes have been very elevated due to the possibly liver shock from cardiogenic shock. REVIEW OF SYSTEMS: Unable to obtain from the patient since he is currently intubated on a ventilato r. PAST MEDICAL HISTORY: Notable for obstructive sleep apnea, diabetes mellitus, hyperlipidemia. PAST SURGICAL HISTORY: Not available at this point. SOCIAL HISTORY: The patient lives with the family. No smoking, alcohol, or recreational drug use a s per the recent chart. FAMILY HISTORY: Noncontributory. PHYSICAL EXAMINATION: VITAL SIGNS: Temperature 98.9, heart rate 74, respiration 20, blood pressure 103/57, saturation is 100% on mechanical ventilator. GENERAL: The patient is currently sedated with fentanyl drip. HEENT: ET tube in place. NECK: Supple, no JVD, no lymphadenopathy. LUNGS: Bilateral coarse breath sounds with minimal expiratory wheezing present. HEART: S1, S2, tachycardia, no murmur. ABDOMEN: Soft, morbidly obese. EXTREMITIES: 1 to 2+ pitting edema. No clubbing, cyanosis. The intraaortic balloon pump in place. NEUROLOGICAL: Uncooperative for exam due to the sedation. PSYCHIATRIC: Not able to assess at this point. LABORATORY DATA/DIAGNOSTIC IMAGING: Sodium 137, potassium 4, chloride 101, bicarbonate 21, BUN 77, creatinine 4.9, glucose 177, calcium 7.8. The patient had a creatinine of 5.05 on admission, and bi carbonate was 10 on admission, currently on bicarbonate drip. Liver enzymes have been admitted. T 6745, ALT 5276, alkaline phosphatase 80, albumin is 3. Prothrombin time 28.3, PTT 33.5, INR 2.6. WBC count 19.8, hemoglobin 10.5, platelet count is 209. IMPRESSION: This is a 56-year-old male who has been currently intubated for acute respiratory failu re from cardiogenic shock. He also had acute non-ST elevation myocardial infarction, status post ca rdiac catheterization and has intraaortic balloon pump in place. Renal has been consulted for: 1. Acute kidney injury on possible previous chronic kidney disease with last creatinine known about 1.48 secondary to acute tubular necrosis from ischemic acute tubular necrosis from cardiogenic shoc k. 2. Acute respiratory failure from cardiogenic shock, currently intubated on ventilator. 3. Acute non-ST elevation myocardial infarction, status post cardiac catheterization with intraaort ic balloon pump in place. 4. History of possible chronic kidney disease secondary to diabetic nephropathy, unknown stage. 5. History of type 2 diabetes mellitus. 6. History of hypertension. PLAN: Thank you, Dr. Escobar, for this consultation. The patient was seen in the ICU and currently neri s an intraaortic balloon pump in place. His urine output has been slightly improved, 30 to 35 mL pe r hour. I will order his urine studies including urine sodium, urine protein creatinine ratio, urin e eosinophils. Uric acid has been ordered with ____. His renal ultrasound has been reviewed which shows the right kidney has been 9.8 cm, left kidney is 10.6 cm, and the kidneys are normal in size, contour, cortical thickness, and cortical echogenicity. No kidney stones are visualized. Continue the current bicarbonate drip. Today's bicarbonate has been around 21. Once the patient's bicarbonate improves more than 22, we will consider stopping the bicarbonate drip. The further plan will depend on the patient's course in the hospital. The patient is currently seen in the ICU. Th e total time spent in this patient's evaluations, making assessment and plan, communicating with the patient's family, and communicating with the nursing staff took more than 60 minutes. Dictated By: FÁTIMA PERES MD, KP/JUANY Conf#: [id number] DID#: [id number]
--- NOTE | 2016-11-20 17:00 | PN ---
DATE: 11/20/2016 CARDIOLOGY FOLLOWUP CRITICAL CARE NOTE SUBJECTIVE: Discussed with the staff. Rhythm strip was reviewed. Patient with frequent PVCs overn ight. I have started on started him on lidocaine drip overnight. Has been control. No more SVT no joel. Still intubated on the vent. According to the nurse, he is off sedation. He is responsive. He has had some bleeding of the neck at the site of central line, otherwise has been stable. He is still on the balloon pump, 1:1 and still on Levophed drip. The old record was reviewed. MEDICATIONS: Reviewed. PHYSICAL EXAMINATION: VITAL SIGNS: Temperature 98.9, heart rate of 76, blood pressure 109/58, respiration rate of 18, sat urating 100%. HEENT: Normocephalic, atraumatic. Obese gentleman. Appears to be disheveled. Eyes are closed. CARDIOVASCULAR: Regular rate and rhythm. Systolic murmur. PULMONARY: Anteriorly mild rhonchi. GASTROINTESTINAL: Obese, soft, nontender. EXTREMITIES: With trivial edema. VASCULAR: Intraaortic balloon pump, no active bleeding. Right IJ central line. PSYCHIATRIC: Unable to assess. LABORATORY: INR is 2.65. Sodium 137, potassium 4, BUN of 77, creatinine of 4.39, glucose 177. Hem oglobin A1c is 7.1. Lactic acid was 9.7 on admission, 2.2. ALT of 50 to 76, AST of 67 to 45. Trop onin has peaked at 21. Total CK of 538. Albumin is 3. ABG shows pH of 7.4, pCO2 of 31, pO2 of 172 , O2 sat of 98%. Chest x-ray shows pulmonary vascular congestion and edema. ASSESSMENT AND PLAN: 1. Status post cardiopulmonary arrest secondary to ventricular tachycardia arrest. 2. Status post most likely recent ST elevation myocardial infarction. 3. Status post percutaneous coronary intervention of the right coronary artery but however, with a very poor flow in the left circumflex artery. 4. Renal failure, probably acute on chronic kidney disease. 6. Congestive heart failure. 7. Ventricular tachycardia. 8. Diabetes. 9. History of hypertension. 10. Review of the old chart showed the patient also has had a history of cerebrovascular accident. 10. Severe metabolic acidosis. 11. Dyslipidemia. 12. Status post smoking. 13. Coagulopathy with elevated INR, probably from liver disease. 14. Acute elevation of LFTs, acute liver disease, probably from above including shock. RECOMMENDATIONS: I will give a dose of vitamin K. Aspirin and Brilinta will be continued for now. Avoid any other anticoagulants for now, given the coagulopathy. Monitor INR. Will anticipate katelynn mary of the balloon pump tomorrow if he remains stable. I would decrease the lidocaine drip to 0.5 m g monitor. Electrolytes will be corrected as needed. Cardiac enzymes will be monitored as well. Nedra king with the ICU care. Vent support. More than 40 minutes of critical care time was spent managing this patient excluding any procedures. Dictated By: SERENA ALCARAZ MD AV/NTS Conf#: [id number] DID#: [id number] CC: PIO VEGA MD;*EndCC*
[2016-11-20] MEDS: FENTAnyl (DRIP) 1000 mcg/100mL 100 ML IV SCH (17:22)
[2016-11-21] VITALS (102 sets, daily range): BP systolic 89–137; BP diastolic 49–115; PULSE 58–123; RESP 15–27
[2016-11-21] MEDS: LIDOCAINE 2 GM/D5W 500 ML IV SCH (00:15)
[2016-11-21] MEDS: PROPOFOL 100 ML IV SCH ×4 (00:21→17:57)
[2016-11-21] MEDS: INSULIN ASPART [NOVOLOG] 3 ML PEN SC SCH ×6 (01:19→21:13)
[2016-11-21 06:27] LABS: ADD SCAN DIFF NO
[2016-11-21 06:53] LABS: BASOPHILS % 0.2 % (0.0-2.0); EOSINOPHILS % 0.2 % (0.0-7.0); HEMATOCRIT 28.2 % (42.0-52.0); HEMOGLOBIN 9.4 g/dl (14.0-18.0); LYMPHOCYTES % 7.3 % (15.0-51.0); MEAN CORPUSCULAR HEMOGLOBIN 30.1 pg (29.0-33.0); MEAN CORPUSCULAR HGB CONC 33.3 g/dl (32.0-37.0); MEAN CORPUSCULAR VOLUME 90.4 fl (82.0-101.0); MEAN PLATELET VOLUME 11.9 fl (7.4-10.4); MONOCYTE # 0.5 10^3/ul (0.3-0.9); MONOCYTES % 3.8 % (0.0-11.0); NEUTROPHIL # 12.4 10^3/ul (1.6-7.5); NEUTROPHILS % 87.8 % (39.0-77.0); NUCLEATED RED BLOOD CELLS # 0.1 10^3/ul (0.0-0.0); NUCLEATED RED BLOOD CELLS% 0.6 /100WBC (0.0-0.0); PLATELET COUNT 215 10^3/UL (140-415); RED BLOOD COUNT 3.12 10^6/ul (4.70-6.10); RED CELL DISTRIBUTION WIDTH 13.3 % (11.5-14.5); WHITE BLOOD COUNT 14.1 10^3/ul (4.8-10.8)
[2016-11-21 07:13] LABS: LACTIC ACID 1.5 mmol/L (0.5-2.2)
[2016-11-21 07:16] LABS: INR 1.97; PROTIME 22.6 Sec (12.2-14.2); PT RATIO 1.8
[2016-11-21 07:17] LABS: PARTIAL THROMBOPLASTIN TIME 29.4 Sec (25.0-35.0)
[2016-11-21 07:19] LABS: THROMBIN TIME 17.5 SEC (13.8-19.1)
[2016-11-21 07:25] LABS: INR 1.96; PROTIME 22.5 Sec (12.2-14.2); PT RATIO 1.8
[2016-11-21 07:26] LABS: PARTIAL THROMBOPLASTIN TIME 29.2 Sec (25.0-35.0)
[2016-11-21 07:30] LABS: ALBUMIN/GLOBULIN RATIO 1.15; BILIRUBIN,DIRECT 0.1 mg/dl (0.00-0.20); BILIRUBIN,INDIRECT 0.5 mg/dl (0-1.1); BILIRUBIN,TOTAL 0.6 mg/dl (0.2-1.3); CALCIUM 7.6 mg/dl (8.4-10.2); CREATININE 4.13 mg/dl (0.61-1.24); POTASSIUM 3.4 mmol/L (3.5-5.1); TOTAL PROTEIN 5.6 g/dl (6.1-8.1)
[2016-11-21 07:31] LABS: CK-MB 25.4 ng/ml (0.0-2.4); TROPONIN-I 28.8 ng/ml (0.00-0.12)
[2016-11-21 07:36] LABS: FIBRIN SPLIT PRODUCT >40 and <80 ug/ml (<10)
[2016-11-21 07:51] LABS: Allen Test ACCEPTAB; Arterial Base Excess -2.1 mmol/L (-3.0-3); Arterial COHb 0.2 % (0.0-3.0); Arterial HCO3 20.5 mmol/L (22.0-26.0); Arterial MetHb 0.4 % (0.0-1.5); Arterial Total Hemglobin 10.5 g/dl (12.0-18.0); MODE VENT - AC
[2016-11-21 07:52] LABS: MAGNESIUM 2.3 mg/dl (1.7-2.5); PHOSPHORUS 5.1 mg/dl (2.5-4.9)
[2016-11-21 08:28] LABS: THYROID STIMULATING HORMONE 0.045 MIU/L (0.465-4.680)
[2016-11-21 08:45] LABS: PLATELET COUNT 215 10^3/UL (140-440)
--- NOTE | 2016-11-21 08:58 | RADRPT ---
PROCEDURE: XR Chest. CLINICAL INDICATION: Pneumonia, CHF. TECHNIQUE: Single frontal view of the chest was obtained. COMPARISON: None FINDINGS: The soft tissues are normal the la posta. The endotracheal tube is positioned at T3-4. An NG tube is positioned distal to the GE junction.. Pacing this catheter enters from right internal jugular sylvester abbott with its tip in the proximal right atrium. The bony elements are poorly visualized due to und erpenetration of the radiograph. The left ventricle is enlarged. The cardiomediastinal silhouette and hilar structures are normal. The pulmonary vasculature is increased. There is a left-sided aort a. There are interstitial infiltrates extending from the right perihilar area and consolidative infi ltrate in the left lower lobe. The left costophrenic angle is obscured. The right costophrenic ang le is normal. IMPRESSION: 1. Cardiomegaly with congestive heart failure and mild interstitial pulmonary edema. Associated con solidative infiltrate in the left lower lobe is noted. The latter could be the result of compressiv e atelectasis or pneumonia. 2. Satisfactory positioning of the endotracheal tube, NG tube and central venous catheter with its tip in the proximal right atrium. RPTAT:AAJJ Physician Radha Date Time Electronically viewed and signed by Physician Radha on 11/21/2016 08:58 ELAYNE/
[2016-11-21] MEDS: FAMOTIDINE 20 MG INJ IV SCH (09:07)
[2016-11-21] MEDS: ASPIRIN (EC) 81 MG TAB PO SCH (09:07)
[2016-11-21] MEDS: TICAGRELOR 90 MG TABLET PO SCH ×2 (09:08→21:08)
--- NOTE | 2016-11-21 09:56 | PN ---
Date/Time of Note Date/Time of Note DATE: 11/21/16 TIME: 09:32 Assessment/Plan VTE Prophylaxis VTE Prophylaxis Intervention: SCD's Lines/Catheters IV Catheter Type (from Nrs): A Line Urinary Cath still in place: Yes Reason Cath still needed: other (indicate) (monitor UOP ) Assessment/Plan Assessment/Plan 56-year-old male with: 1. ST elevation myocardial infarction with a hemodynamic instability, status post ventricular tachycardia, cardioverted status post angiogram with PCI to the circumflex, currently on a balloon pump. Still on Levo, Fentanyl and Propofol for sedation Dr. Simeon following, on Lidocaine gtt, on Brilinta and ASA. Pulmonary critical care following 2. Acute respiratory failure secondary to cardiogenic shock and ST elevation myocardial infarction. Also with history of chronic obstructive pulmonary disease Intubated and sedated on Fentanyl and Propofol CXR with CHF exacerbation, will start diuresis when more stable and OK with cardiology and Nephro, patient still on Balloon pump. Pulmonary for Vent management. 3. Acute kidney injury on probable chronic kidney disease, likely secondary to acute tubular necrosis in this situation. Repleting hypokalemia On Bicarb gtt for metabolic acidosis. Renal US mostly unremarkable UOP started picking yesterday Nephrology, Dr Welch following. 4. Diabetes mellitus. His blood sugars are fairly stable. A1c 7.1 Continue sliding scale insulin . 5. Shock Liver, with elevated LFTs and coagulopathy currently. Monitor closely, improving. Vit K given yesterday. Avoid hepatotoxic agents 6. Coagulopathy, 2ry to shock liver likely. Monitor, patient did get Vit K May need FFP if significant bleeding. 7. Obstructive sleep apnea on CPAP at night as outpatient. 8. Tobacco use. Hopefully the patient will quit after this. Nicotine patch as needed. 9. Morbid obesity. Prophylaxis. Pepcid for GI ppx and SCDs. DISPOSITION: Guarded prognosis still and patient remains critical. Subjective 24 Hr Interval Summary Free Text/Dictation Patient still in critical condition with balloon pump on and on multiple drips including sedation No further event No further bleeding from right IJ site Exam/Review of Systems Vital Signs Vitals Vital Signs Date Time Temp Pulse Resp B/P Pulse Ox O2 Delivery O2 Flow Rate FiO2 11/21/16 08:45 70 24 109/58 99 11/21/16 08:00 30 11/21/16 08:00 98.8 Mechanical Ventilator 11/19/16 13:42 15 Intake and Output 11/20/16 11/20/16 11/21/16 15:00 23:00 07:00 Intake Total 893.76 ml 1013.59 ml 1011.89 ml Output Total 550 ml 1215 ml 1250 ml Balance 343.76 ml -201.41 ml -238.11 ml Exam Constitutional: other (sedated and intubated ) Respiratory: diminished breath sounds (bases ) Cardiovascular: nl pulses, regular rate and rhythm Gastrointestinal: non-tender, soft Musculoskeletal: nl extremities to inspection Extremities: normal pulses, other (no edema, clubbing or cyanosis ) Neurological: other (sedated and intubated ) Results Result Diagram: 11/21/16 0400 11/21/16 0400 Results 24 hrs Laboratory Tests Test 11/20/16 12:26 11/20/16 14:15 11/20/16 16:42 11/20/16 20:51 Bedside Glucose 94 142 151 Urine Eosinophils % 0.0 Urine Random Creatinine 70.74 Urine Random Sodium 35 Urine Protein/Creatinine Ratio 0.72 Urine Total Protein 51.0 H Test 11/21/16 01:15 11/21/16 04:00 11/21/16 04:56 11/21/16 05:20 Bedside Glucose 165 166 White Blood Count 14.1 H Red Blood Count 3.12 L Hemoglobin 9.4 L Hematocrit 28.2 L Mean Corpuscular Volume 90.4 Mean Corpuscular Hemoglobin 30.1 Mean Corpuscular Hemoglobin Concent 33.3 Red Cell Distribution Width 13.3 Platelet Count 215 Mean Platelet Volume 11.9 H Neutrophils % 87.8 H Lymphocytes % 7.3 L Monocytes % 3.8 Eosinophils % 0.2 Basophils % 0.2 Nucleated Red Blood Cells % 0.6 H Neutrophils # 12.4 H Lymphocytes # 1.0 Monocytes # 0.5 Eosinophils # 0.0 Basophils # 0.0 Nucleated Red Blood Cells # 0.1 H Prothrombin Time 22.6 H Prothrombin Time Ratio 1.8 INR International Normalized Ratio 1.97 Activated Partial Thromboplast Time 29.4 Thrombin Time 17.5 Fibrinogen 273.0 Plasma Fibrin Degradation Products >40 and <80 H D-Dimer Sodium Level 138 Potassium Level 3.4 L Chloride Level 101 Carbon Dioxide Level 27 Anion Gap 13 Blood Urea Nitrogen 74 H Creatinine 4.13 H Glucose Level 147 Uric Acid 14.0 H Calcium Level 7.6 L Phosphorus Level 5.1 #H Magnesium Level 2.3 Total Bilirubin 0.6 Direct Bilirubin 0.10 Indirect Bilirubin 0.5 Aspartate Amino Transf (AST/SGOT) 1660 H Alanine Aminotransferase (ALT/SGPT) 3431 H Alkaline Phosphatase 111 Creatine Kinase 467 H Creatine Kinase Index 5.4 Creatinine Kinase MB (Mass) 25.40 H Troponin I 28.800 *H B-Type Natriuretic Peptide 45577 H Total Protein 5.6 L Albumin 3.0 L Globulin 2.60 Albumin/Globulin Ratio 1.15 Thyroid Stimulating Hormone (TSH) 0.045 L Free Thyroxine 1.57 Lactic Acid Level 1.5 Ammonia 42 H Test 11/21/16 07:00 11/21/16 09:02 Blood Gas Specimen Source Blood arterial Arterial Blood Date Drawn 11/21/2016 7:30:42 AM Arterial Blood pH (Temp corrected) 7.482 H Arterial Blood pCO2 (Temp correct) 28.0 L Arterial Blood pO2 (Temp corrected) 100.0 Arterial Blood HCO3 20.5 L Arterial Blood Base Excess -2.1 Arterial Blood Oxygen Saturation 96.6 Keron Test ACCEPTAB Arterial Blood Gas Puncture Site Right Radial Arterial Blood Carboxyhemoglobin 0.2 Arterial Blood Methemoglobin 0.4 Blood Gas A-a O2 Differential 81.0 H Oxyhemoglobin Percent 96.0 Total Hemoglobin 10.5 L Blood Gas Temperature 37.0 Blood Gas Respiration Rate 20.0 Blood Gas Actual Respiration Rate 23 Blood Gas Modality VENT - AC FiO2 30.0 Blood Gas Tidal Volume 500.0 Blood Gas Low PEEP Setting 7.0 Blood Gas Notified Whom JLD Blood Gas Notified Time 11/21/2016 7:51:17 AM Bedside Glucose 149 Medications Medications Current Medications Aspirin (Halfprin) 81 mg DAILY PO Last administered on 11/21/16 09:07; Admin Dose 81 MG; Start 11/20/16 at 09:00 Ticagrelor (Brilinta) 90 mg BID PO Last administered on 11/21/16 09:08; Admin Dose 90 MG; Start 11/19/16 at 21:00 Miscellaneous Information Hold all Metformin ... ONCE XX Last administered on 15:38; Admin Dose 1 EA; Start 11/19/16 at 15:30; Stop 11/21/16 at 15:29 Propofol 100 ml @ 3.818 mls/ hr Q12H IV Last administered on 11/21/16 05:03; Admin Dose 19.091 MLS/HR; Start 11/19/16 at 16:30 Fentanyl (Sublimaze) 100 ml @ 2.5 mls/hr TITRATE IV Last administered on 17:22; Admin Dose 2.5 MLS/HR; Start 11/19/16 at 17:00 Ondansetron HCl (Zofran Inj) 4 mg Q6H PRN IV NAUSEA AND/OR VOMITING; Start 04/27 at 17:00 Acetaminophen (Tylenol Liquid) 650 mg Q6H PRN PO PAIN LEVEL 1-3 OR FEVER; Start 11/19/16 at 17:00 Acetaminophen (Tylenol Supp) 650 mg Q4H PRN [place] PAIN LEVEL 1-3 OR FEVER; Start 11/19/16 at 17:00 Docusate Sodium (Colace) 100 mg Q12H PRN PO CONSTIPATION; Start 11/19/16 at 17: 00 Magnesium Hydroxide (Milk Of Mag) 30 ml DAILY PRN PO CONSTIPATION; Start at 17:00 Bisacodyl (Dulcolax Supp) 10 mg DAILY PRN [place] CONSTIPATION; Start 11/19/16 at 17 :00 Famotidine (Pepcid Iv) 20 mg DAILY IV Last administered on 11/21/16 09:07; Admin Dose 20 MG; Start 11/19/16 at 17:00 Insulin Aspart (Novolog Insulin Pen) NOVOLOG *MODERATE* ALGORI... Q4 SC Last administered on 11/21/16 09:04; Admin Dose 2 UNIT; Start 11/19/16 at 17:30 Miscellaneous Information 1 ea NOTE XX ; Start 11/19/16 at 17:30 Glucose (Glutose) 15 gm Q15M PRN PO DECREASED GLUCOSE; Start 11/19/16 at 17:30 Glucose (Glutose) 22.5 gm Q15M PRN PO DECREASED GLUCOSE; Start 11/19/16 at 17: 30 Dextrose (D50w Syringe) 25 ml Q15M PRN IV DECREASED GLUCOSE; Start 11/19/16 at 17:30 Dextrose (D50w Syringe) 50 ml Q15M PRN IV DECREASED GLUCOSE; Start 11/19/16 at 17:30 Glucagon (Glucagen) 1 mg Q15M PRN IM DECREASED GLUCOSE; Start 11/19/16 at 17:30 Glucose 15 gm 15 gm Q15M PRN BUCCAL DECREASED GLUCOSE; Start 11/19/16 at 17:30 Sodium Bicarbonate 150 meq/Dextrose 1,000 ml @ 75 mls/hr [id number] IV Last administered on 11/20/16 23:35; Admin Dose 75 MLS/HR; Start 11/19/16 at 19:11 Lidocaine HCl/ Dextrose 500 ml @ 7.5 mls/hr Q24H IV Last administered on 00:15; Admin Dose 7.5 MLS/HR; Start 11/19/16 at 23:00 Norepinephrine/ Dextrose (Levophed/D5W) 500 ml @ 1.875 mls/ hr TITRATE IV Last administered on 11/20/16 23:39; Admin Dose 15.17 MLS/HR; Start 11/20/16 at 19:30 PIO VEGA Nov 21, 2016 09:44
--- NOTE | 2016-11-21 10:57 | CONS ---
Date/Time of Note Date/Time of Note DATE: 11/21/16 TIME: 10:53 Assessment/Plan Assessment/Plan Additional Assessment/Plan Chest x-ray was reviewed from today which is showing very minimal vascular congestion with possibly left lower lobe subsegmental atelectasis. Endotracheal tube is at an adequate level. Ventilator setting; AC of 20, tidal volume 500, PEEP of 7, 30% FiO2. Patient currently on fentanyl 25 mics per hour, propofol 20 mcg/min. Assessment recommendations; 1. Patient admitted for STEMI status post PTCA of circumflex lesion. 2. Status post CPR. 3. Renal insufficiency. Likely chronic. 4. Diabetes. 5. Metabolic acidosis with interval improvement. Continue current supportive care. Intra-aortic balloon pump likely will be discontinued today. If the patient remains hemodynamically stable he will be given a weaning trial from ventilator in 24 hours. 35 minutes of critical care time was spent evaluating the patient. Consultation Date/Type/Reason Admit Date/Time Nov 19, 2016 at 16:09 Initial Consult Date Type of Consultation: Pulmonary ICU 24 HR Interval Summary Free Text/Dictation Patient condition remains critical. Still requiring full ventilator support. Patient also on intra-aortic balloon pump at 1-1 augmentation ratio. Patient however has remained hemodynamically stable. General exam; middle-aged male, orally intubated, sedated. Currently in no distress. Exam/Review of Systems Vital Signs Vitals Vital Signs Date Time Temp Pulse Resp B/P Pulse Ox O2 Delivery O2 Flow Rate FiO2 11/21/16 08:45 70 24 109/58 99 11/21/16 08:00 30 11/21/16 08:00 98.8 Mechanical Ventilator 11/19/16 13:42 15 Intake and Output 11/20/16 11/20/16 11/21/16 15:00 23:00 07:00 Intake Total 893.76 ml 1013.59 ml 1011.89 ml Output Total 550 ml 1215 ml 1250 ml Balance 343.76 ml -201.41 ml -238.11 ml Exam HEENT examination; supple neck, positive JVD. No lymphadenopathy. Midline trachea. No thyromegaly. No neck masses. Pupils are equal and reactive to light. Patient is edentulous. Orally intubated. Chest examined; clear to auscultation. S1-S2 audible, no murmurs. Regular rhythm. Abdomen examination; soft, no organomegaly. Bowel sounds audible. Extremity examination; no peripheral edema. Pulses 1+ bilaterally. PALEONTOLOGICAL HELPER examination; patient is sedated. Results Result Diagram: 11/21/16 0400 11/21/16 0400 Results 24 hrs Laboratory Tests Test 11/20/16 12:26 11/20/16 14:15 11/20/16 16:42 11/20/16 20:51 Bedside Glucose 94 142 151 Urine Eosinophils % 0.0 Urine Random Creatinine 70.74 Urine Random Sodium 35 Urine Protein/Creatinine Ratio 0.72 Urine Total Protein 51.0 H Test 11/21/16 01:15 11/21/16 04:00 11/21/16 04:56 11/21/16 05:20 Bedside Glucose 165 166 White Blood Count 14.1 H Red Blood Count 3.12 L Hemoglobin 9.4 L Hematocrit 28.2 L Mean Corpuscular Volume 90.4 Mean Corpuscular Hemoglobin 30.1 Mean Corpuscular Hemoglobin Concent 33.3 Red Cell Distribution Width 13.3 Platelet Count 215 Mean Platelet Volume 11.9 H Neutrophils % 87.8 H Lymphocytes % 7.3 L Monocytes % 3.8 Eosinophils % 0.2 Basophils % 0.2 Nucleated Red Blood Cells % 0.6 H Neutrophils # 12.4 H Lymphocytes # 1.0 Monocytes # 0.5 Eosinophils # 0.0 Basophils # 0.0 Nucleated Red Blood Cells # 0.1 H Prothrombin Time 22.6 H Prothrombin Time Ratio 1.8 INR International Normalized Ratio 1.97 Activated Partial Thromboplast Time 29.4 Thrombin Time 17.5 Fibrinogen 273.0 Plasma Fibrin Degradation Products >40 and <80 H D-Dimer Sodium Level 138 Potassium Level 3.4 L Chloride Level 101 Carbon Dioxide Level 27 Anion Gap 13 Blood Urea Nitrogen 74 H Creatinine 4.13 H Glucose Level 147 Uric Acid 14.0 H Calcium Level 7.6 L Phosphorus Level 5.1 #H Magnesium Level 2.3 Total Bilirubin 0.6 Direct Bilirubin 0.10 Indirect Bilirubin 0.5 Aspartate Amino Transf (AST/SGOT) 1660 H Alanine Aminotransferase (ALT/SGPT) 3431 H Alkaline Phosphatase 111 Creatine Kinase 467 H Creatine Kinase Index 5.4 Creatinine Kinase MB (Mass) 25.40 H Troponin I 28.800 *H B-Type Natriuretic Peptide 68190 H Total Protein 5.6 L Albumin 3.0 L Globulin 2.60 Albumin/Globulin Ratio 1.15 Thyroid Stimulating Hormone (TSH) 0.045 L Free Thyroxine 1.57 Lactic Acid Level 1.5 Ammonia 42 H Test 11/21/16 07:00 11/21/16 09:02 Blood Gas Specimen Source Blood arterial Arterial Blood Date Drawn 11/21/2016 7:30:42 AM Arterial Blood pH (Temp corrected) 7.482 H Arterial Blood pCO2 (Temp correct) 28.0 L Arterial Blood pO2 (Temp corrected) 100.0 Arterial Blood HCO3 20.5 L Arterial Blood Base Excess -2.1 Arterial Blood Oxygen Saturation 96.6 Keron Test ACCEPTAB Arterial Blood Gas Puncture Site Right Radial Arterial Blood Carboxyhemoglobin 0.2 Arterial Blood Methemoglobin 0.4 Blood Gas A-a O2 Differential 81.0 H Oxyhemoglobin Percent 96.0 Total Hemoglobin 10.5 L Blood Gas Temperature 37.0 Blood Gas Respiration Rate 20.0 Blood Gas Actual Respiration Rate 23 Blood Gas Modality VENT - AC FiO2 30.0 Blood Gas Tidal Volume 500.0 Blood Gas Low PEEP Setting 7.0 Blood Gas Notified Whom JLD Blood Gas Notified Time 11/21/2016 7:51:17 AM Bedside Glucose 149 Medications Medications Current Medications Aspirin (Halfprin) 81 mg DAILY PO Last administered on 11/21/16 09:07; Admin Dose 81 MG; Start 11/20/16 at 09:00 Ticagrelor (Brilinta) 90 mg BID PO Last administered on 11/21/16 09:08; Admin Dose 90 MG; Start 11/19/16 at 21:00 Miscellaneous Information Hold all Metformin ... ONCE XX Last administered on 15:38; Admin Dose 1 EA; Start 11/19/16 at 15:30; Stop 11/21/16 at 15:29 Propofol 100 ml @ 3.818 mls/ hr Q12H IV Last administered on 11/21/16 05:03; Admin Dose 19.091 MLS/HR; Start 11/19/16 at 16:30 Fentanyl (Sublimaze) 100 ml @ 2.5 mls/hr TITRATE IV Last administered on 17:22; Admin Dose 2.5 MLS/HR; Start 11/19/16 at 17:00 Ondansetron HCl (Zofran Inj) 4 mg Q6H PRN IV NAUSEA AND/OR VOMITING; Start 04/27 at 17:00 Acetaminophen (Tylenol Liquid) 650 mg Q6H PRN PO PAIN LEVEL 1-3 OR FEVER; Start 11/19/16 at 17:00 Acetaminophen (Tylenol Supp) 650 mg Q4H PRN [place] PAIN LEVEL 1-3 OR FEVER; Start 11/19/16 at 17:00 Docusate Sodium (Colace) 100 mg Q12H PRN PO CONSTIPATION; Start 11/19/16 at 17: 00 Magnesium Hydroxide (Milk Of Mag) 30 ml DAILY PRN PO CONSTIPATION; Start at 17:00 Bisacodyl (Dulcolax Supp) 10 mg DAILY PRN [place] CONSTIPATION; Start 11/19/16 at 17 :00 Famotidine (Pepcid Iv) 20 mg DAILY IV Last administered on 11/21/16 09:07; Admin Dose 20 MG; Start 11/19/16 at 17:00 Insulin Aspart (Novolog Insulin Pen) NOVOLOG *MODERATE* ALGORI... Q4 SC Last administered on 11/21/16 09:04; Admin Dose 2 UNIT; Start 11/19/16 at 17:30 Miscellaneous Information 1 ea NOTE XX ; Start 11/19/16 at 17:30 Glucose (Glutose) 15 gm Q15M PRN PO DECREASED GLUCOSE; Start 11/19/16 at 17:30 Glucose (Glutose) 22.5 gm Q15M PRN PO DECREASED GLUCOSE; Start 11/19/16 at 17: 30 Dextrose (D50w Syringe) 25 ml Q15M PRN IV DECREASED GLUCOSE; Start 11/19/16 at 17:30 Dextrose (D50w Syringe) 50 ml Q15M PRN IV DECREASED GLUCOSE; Start 11/19/16 at 17:30 Glucagon (Glucagen) 1 mg Q15M PRN IM DECREASED GLUCOSE; Start 11/19/16 at 17:30 Glucose 15 gm 15 gm Q15M PRN BUCCAL DECREASED GLUCOSE; Start 11/19/16 at 17:30 Sodium Bicarbonate 150 meq/Dextrose 1,000 ml @ 75 mls/hr [id number] IV Last administered on 11/20/16 23:35; Admin Dose 75 MLS/HR; Start 11/19/16 at 19:11 Lidocaine HCl/ Dextrose 500 ml @ 7.5 mls/hr Q24H IV Last administered on 00:15; Admin Dose 7.5 MLS/HR; Start 11/19/16 at 23:00 Norepinephrine 16 mg/Dextrose 500 ml @ 1.875 mls/ hr TITRATE IV Last administered on 11/20/16 23:39; Admin Dose 15.17 MLS/HR; Start 11/20/16 at 19: 30 Potassium Chloride/Sodium Chloride (KCl/NS) 110 ml @ 55 mls/hr ONCE ONCE IVPB ; Start 11/21/16 at 11:00; Stop 11/21/16 at 12:59 ELEONORA LEWIS Nov 21, 2016 10:57
[2016-11-21] MEDS ORDERED: POTASSIUM CHLORIDE 20 MEQ in SOD CHLORIDE 0.9% 100 ML IVPB ONE (11:00)
[2016-11-21] MEDS ORDERED: DIGOXIN 500 MCG INJ IV ONE ×2 (12:00→17:00)
[2016-11-21] MEDS ORDERED: AMIODARONE 150MG/D5W BOLUS 100 ML IV ONE (12:00)
[2016-11-21] MEDS ORDERED: AMIODARONE 150MG/D5W BOLUS 100 ML ONE (12:01)
[2016-11-21] MEDS ORDERED: AMIODARONE 900 MG in DEXTROSE 5% 482 ML IV SCH (14:30)
--- NOTE | 2016-11-21 14:34 | PN ---
DATE: 11/21/2016 CARDIOLOGY FOLLOWUP PROGRESS NOTE SUBJECTIVE: Discussed with the staff. Rhythm strip was reviewed. The patient has come into atrial fibrillation with rapid ventricular response. Was given a bolus dose of amiodarone as well as a do se of digoxin. He converted back to sinus rhythm. However, again converted back to atrial fibrilla tion. He remains intubated on the vent. Discussed with the staff. According to zonia, the binta ent has been taken off sedation, but is not very responsive ____ following commands. The patient st ill on the vent, Levophed drip, intraaortic balloon pump in place. MEDICATIONS: Reviewed, which include: 1. Aspirin. 2. Brilinta. 3. Nitrogen. 4. Levophed. 5. Insulin. PHYSICAL EXAMINATION: VITAL SIGNS: Temperature 98.5, heart rate of 70, blood pressure 92/57, respiratory rate of 23, satu rating 99%. HEENT: Normocephalic, atraumatic. Status post intubation on the vent. Obese gentleman. CARDIOVASCULAR: Regular rate and rhythm. PULMONARY: Anteriorly with no wheezes, mild rhonchi, diffuse. GASTROINTESTINAL: Obese, soft, nontender. EXTREMITIES: With trivial edema. NEUROLOGIC: Nonresponsive to verbal stimuli. LABORATORY: WBC of 14.1, hemoglobin 9.4, platelets 215. Sodium 138, potassium 3.4, BUN of 74, crea tinine of 4.12, glucose of 147. Uric acid is 14. ALT is 3431, AST of 1660. Troponin of 28. ____ 467. INR is 1.97, PTT is 29. ASSESSMENT AND PLAN: 1. Status post cardiac arrest secondary to ventricular tachycardia arrest. 2. ST-elevation myocardial infarction, status post percutaneous coronary intervention of left circu mflex artery with poor flow though. 3. Renal failure, probably chronic, creatinine has remained stable and actually improved slowly. 4. Paroxysmal atrial fibrillation with rapid ventricular response. 5. Severe coagulopathy and elevated INR. 6. Elevated LFTs, consistent with shock liver. 7. Diabetes. 8. Hypertension, currently hypotensive and shock. 9. Severe metabolic acidosis. 10. Dyslipidemia. 11. History of smoking. 12. Congestive heart failure. 13. Ischemic cardiomyopathy. RECOMMENDATIONS: I will start the patient on amiodarone drip. Will stop the lidocaine drip for now . Potassium is being replaced. Continue with Levophed as needed. Will check electrolytes tomorrow again and make adjustments as needed. Continue with aspirin and Brilinta. I will keep the balloon pump and give him another day until tomorrow given the fact that he is currently back in atrial fib rillation. Will anticipate removal of the balloon pump tomorrow if the patient remains stable. Con tinue with the ICU care. More than 40 minutes of critical care time was spent in management of this patient excluding any pro cedures. Dictated By: SERENA ALCARAZ MD AV/JUANY Conf#: [id number] DID#: [id number] CC: PIO VEGA MD;*EndCC*
[2016-11-21] MEDS: SODIUM BICARBONATE (IV ADD) 150 MEQ in DEXTROSE 5% 850 ML IV SCH (14:55)
[2016-11-21 16:53] LABS: CALCIUM 8.1 mg/dl (8.4-10.2); CREATININE 3.7 mg/dl (0.61-1.24); POTASSIUM 3.5 mmol/L (3.5-5.1)
--- NOTE | 2016-11-21 20:34 | CONS ---
Date/Time of Note Date/Time of Note DATE: 11/21/16 TIME: 20:29 Assessment/Plan Assessment/Plan Additional Assessment/Plan 1. Acute kidney injury on possible previous chronic kidney disease with last creatinine known about 1.48 secondary to acute tubular necrosis from ischemic acute tubular necrosis from cardiogenic shock. 2. Acute respiratory failure from cardiogenic shock, currently intubated on ventilator. 3. Acute non-ST elevation myocardial infarction, status post cardiac catheterization with intraaortic balloon pump in place. 4. History of possible chronic kidney disease secondary to diabetic nephropathy , unknown stage. 5. History of type 2 diabetes mellitus. 6. History of hypertension. Plan: BUN/Cr improving, good urine ouptut HCO3 33- stopped bicarbonate drip switched to IVF D51/2 NS at 75 cc/hr Consultation Date/Type/Reason Admit Date/Time Nov 19, 2016 at 16:09 Initial Consult Date Nov Type of Consultation: NEPHROLOGY Reason for Consultation acute on chronic renal failure Referring Provider: PIO VEGA 24 HR Interval Summary Free Text/Dictation no acute events overnight, BP stable, afebrile, Exam/Review of Systems Vital Signs Vitals Vital Signs Date Time Temp Pulse Resp B/P Pulse Ox O2 Delivery O2 Flow Rate FiO2 11/21/16 18:45 63 23 107/54 98 11/21/16 18:00 Mechanical Ventilator 11/21/16 17:05 30 11/21/16 12:00 98.5 11/19/16 13:42 15 Intake and Output 11/20/16 11/20/16 11/21/16 15:00 23:00 07:00 Intake Total 893.76 ml 1013.59 ml 1011.89 ml Output Total 550 ml 1215 ml 1250 ml Balance 343.76 ml -201.41 ml -238.11 ml Exam GENERAL: The patient is currently sedated with fentanyl drip. HEENT: ET tube in place. NECK: Supple, no JVD, no lymphadenopathy. LUNGS: Bilateral coarse breath sounds with minimal expiratory wheezing present. HEART: S1, S2, tachycardia, no murmur. ABDOMEN: Soft, morbidly obese. EXTREMITIES: 1 to 2+ pitting edema. No clubbing, cyanosis. The intraaortic balloon pump in place. NEUROLOGICAL: Uncooperative for exam due to the sedation. PSYCHIATRIC: Not able to assess at this point. Results Result Diagram: 11/21/16 0400 11/21/16 1624 Results 24 hrs Laboratory Tests Test 11/20/16 20:51 11/21/16 01:15 11/21/16 04:00 11/21/16 04:56 Bedside Glucose 151 165 166 White Blood Count 14.1 H Red Blood Count 3.12 L Hemoglobin 9.4 L Hematocrit 28.2 L Mean Corpuscular Volume 90.4 Mean Corpuscular Hemoglobin 30.1 Mean Corpuscular Hemoglobin Concent 33.3 Red Cell Distribution Width 13.3 Platelet Count 215 Mean Platelet Volume 11.9 H Neutrophils % 87.8 H Lymphocytes % 7.3 L Monocytes % 3.8 Eosinophils % 0.2 Basophils % 0.2 Nucleated Red Blood Cells % 0.6 H Neutrophils # 12.4 H Lymphocytes # 1.0 Monocytes # 0.5 Eosinophils # 0.0 Basophils # 0.0 Nucleated Red Blood Cells # 0.1 H Prothrombin Time 22.6 H Prothrombin Time Ratio 1.8 INR International Normalized Ratio 1.97 Activated Partial Thromboplast Time 29.4 Thrombin Time 17.5 Fibrinogen 273.0 Plasma Fibrin Degradation Products >40 and <80 H D-Dimer Sodium Level 138 Potassium Level 3.4 L Chloride Level 101 Carbon Dioxide Level 27 Anion Gap 13 Blood Urea Nitrogen 74 H Creatinine 4.13 H Glucose Level 147 Uric Acid 14.0 H Calcium Level 7.6 L Phosphorus Level 5.1 #H Magnesium Level 2.3 Total Bilirubin 0.6 Direct Bilirubin 0.10 Indirect Bilirubin 0.5 Aspartate Amino Transf (AST/SGOT) 1660 H Alanine Aminotransferase (ALT/SGPT) 3431 H Alkaline Phosphatase 111 Creatine Kinase 467 H Creatine Kinase Index 5.4 Creatinine Kinase MB (Mass) 25.40 H Troponin I 28.800 *H B-Type Natriuretic Peptide 65731 H Total Protein 5.6 L Albumin 3.0 L Globulin 2.60 Albumin/Globulin Ratio 1.15 Thyroid Stimulating Hormone (TSH) 0.045 L Free Thyroxine 1.57 Test 11/21/16 05:20 11/21/16 07:00 11/21/16 09:02 11/21/16 12:51 Lactic Acid Level 1.5 Ammonia 42 H Blood Gas Specimen Source Blood arterial Arterial Blood Date Drawn 11/21/2016 7:30:42 AM Arterial Blood pH (Temp corrected) 7.482 H Arterial Blood pCO2 (Temp correct) 28.0 L Arterial Blood pO2 (Temp corrected) 100.0 Arterial Blood HCO3 20.5 L Arterial Blood Base Excess -2.1 Arterial Blood Oxygen Saturation 96.6 Keron Test ACCEPTAB Arterial Blood Gas Puncture Site Right Radial Arterial Blood Carboxyhemoglobin 0.2 Arterial Blood Methemoglobin 0.4 Blood Gas A-a O2 Differential 81.0 H Oxyhemoglobin Percent 96.0 Total Hemoglobin 10.5 L Blood Gas Temperature 37.0 Blood Gas Respiration Rate 20.0 Blood Gas Actual Respiration Rate 23 Blood Gas Modality VENT - AC FiO2 30.0 Blood Gas Tidal Volume 500.0 Blood Gas Low PEEP Setting 7.0 Blood Gas Notified Whom JLD Blood Gas Notified Time 11/21/2016 7:51:17 AM Bedside Glucose 149 150 Test 11/21/16 16:24 11/21/16 16:26 Sodium Level 141 Potassium Level 3.5 Chloride Level 102 Carbon Dioxide Level 31 Anion Gap 12 Blood Urea Nitrogen 66 H Creatinine 3.70 H Glucose Level 134 Calcium Level 8.1 L Bedside Glucose 153 Medications Medications Current Medications Aspirin (Halfprin) 81 mg DAILY PO Last administered on 11/21/16 09:07; Admin Dose 81 MG; Start 11/20/16 at 09:00 Ticagrelor 90 mg 90 mg BID PO Last administered on 11/21/16 09:08; Admin Dose 90 MG; Start 11/19/16 at 21:00 Propofol 100 ml @ 3.818 mls/ hr Q12H IV Last administered on 11/21/16 17:57; Admin Dose 15.272 MLS/HR; Start 11/19/16 at 16:30 Fentanyl (Sublimaze) 100 ml @ 2.5 mls/hr TITRATE IV Last administered on 17:22; Admin Dose 2.5 MLS/HR; Start 11/19/16 at 17:00 Ondansetron HCl (Zofran Inj) 4 mg Q6H PRN IV NAUSEA AND/OR VOMITING; Start 04/27 at 17:00 Acetaminophen (Tylenol Liquid) 650 mg Q6H PRN PO PAIN LEVEL 1-3 OR FEVER; Start 11/19/16 at 17:00 Acetaminophen (Tylenol Supp) 650 mg Q4H PRN [place] PAIN LEVEL 1-3 OR FEVER; Start 11/19/16 at 17:00 Docusate Sodium (Colace) 100 mg Q12H PRN PO CONSTIPATION; Start 11/19/16 at 17: 00 Magnesium Hydroxide (Milk Of Mag) 30 ml DAILY PRN PO CONSTIPATION; Start at 17:00 Bisacodyl (Dulcolax Supp) 10 mg DAILY PRN [place] CONSTIPATION; Start 11/19/16 at 17 :00 Famotidine (Pepcid Iv) 20 mg DAILY IV Last administered on 11/21/16 09:07; Admin Dose 20 MG; Start 11/19/16 at 17:00 Insulin Aspart (Novolog Insulin Pen) NOVOLOG *MODERATE* ALGORI... Q4 SC Last administered on 11/21/16 16:28; Admin Dose 2 UNIT; Start 11/19/16 at 17:30 Miscellaneous Information 1 ea NOTE XX ; Start 11/19/16 at 17:30 Glucose (Glutose) 15 gm Q15M PRN PO DECREASED GLUCOSE; Start 11/19/16 at 17:30 Glucose (Glutose) 22.5 gm Q15M PRN PO DECREASED GLUCOSE; Start 11/19/16 at 17: 30 Dextrose (D50w Syringe) 25 ml Q15M PRN IV DECREASED GLUCOSE; Start 11/19/16 at 17:30 Dextrose (D50w Syringe) 50 ml Q15M PRN IV DECREASED GLUCOSE; Start 11/19/16 at 17:30 Glucagon (Glucagen) 1 mg Q15M PRN IM DECREASED GLUCOSE; Start 11/19/16 at 17:30 Glucose 15 gm 15 gm Q15M PRN BUCCAL DECREASED GLUCOSE; Start 11/19/16 at 17:30 Sodium Bicarbonate 150 meq/Dextrose 1,000 ml @ 75 mls/hr [id number] IV Last administered on 11/21/16 14:55; Admin Dose 75 MLS/HR; Start 11/19/16 at 19:11 Norepinephrine 16 mg/Dextrose 500 ml @ 1.875 mls/ hr TITRATE IV Last administered on 11/20/16 23:39; Admin Dose 15.17 MLS/HR; Start 11/20/16 at 19: 30 Amiodarone HCl/ Dextrose (Cordarone Iv/ D5W) 500 ml @ 0 mls/hr Q0M IV Last administered on 11/21/16 16:06; Admin Dose 33.4 MLS/HR; Start 11/21/16 at 14:30 ; Stop 11/22/16 at 14:29 FÁTIMA PERES MD Nov 21, 2016 20:34
[2016-11-21] MEDS: DEXTROSE 5%-0.45% NACL 1,000 ML IV SCH (21:20)
[2016-11-21] MEDS: FENTAnyl (DRIP) 1000 mcg/100mL 100 ML IV SCH (21:42)
[2016-11-22] VITALS (100 sets, daily range): BP systolic 101–156; BP diastolic 52–136; PULSE 56–106; RESP 9–33
[2016-11-22] MEDS: PROPOFOL 100 ML IV SCH ×4 (01:04→20:31)
[2016-11-22] MEDS: INSULIN ASPART [NOVOLOG] 3 ML PEN SC SCH ×6 (01:30→20:37)
[2016-11-22 04:55] LABS: ADD SCAN DIFF NO
[2016-11-22 05:09] LABS: BASOPHILS % 0.1 % (0.0-2.0); EOSINOPHILS # 0.1 10^3/ul (0.0-0.5); EOSINOPHILS % 0.6 % (0.0-7.0); HEMATOCRIT 28.3 % (42.0-52.0); HEMOGLOBIN 9.5 g/dl (14.0-18.0); LYMPHOCYTES # 0.8 10^3/ul (0.8-2.9); LYMPHOCYTES % 5.5 % (15.0-51.0); MEAN CORPUSCULAR HEMOGLOBIN 30.7 pg (29.0-33.0); MEAN CORPUSCULAR HGB CONC 33.6 g/dl (32.0-37.0); MEAN CORPUSCULAR VOLUME 91.6 fl (82.0-101.0); MEAN PLATELET VOLUME 11.3 fl (7.4-10.4); MONOCYTE # 0.6 10^3/ul (0.3-0.9); NEUTROPHIL # 12.2 10^3/ul (1.6-7.5); NUCLEATED RED BLOOD CELLS% 0.2 /100WBC (0.0-0.0); PLATELET COUNT 215 10^3/UL (140-415); RED BLOOD COUNT 3.09 10^6/ul (4.70-6.10); RED CELL DISTRIBUTION WIDTH 13.4 % (11.5-14.5); WHITE BLOOD COUNT 13.7 10^3/ul (4.8-10.8)
[2016-11-22 05:13] LABS: INR 1.56; PROTIME 18.8 Sec (12.2-14.2); PT RATIO 1.5
[2016-11-22 05:14] LABS: PARTIAL THROMBOPLASTIN TIME 28.5 Sec (25.0-35.0)
[2016-11-22 05:48] LABS: MAGNESIUM 2.2 mg/dl (1.7-2.5); PHOSPHORUS 4.2 mg/dl (2.5-4.9)
[2016-11-22 05:54] LABS: ALBUMIN/GLOBULIN RATIO 1.11; BILIRUBIN,DIRECT 0.8 mg/dl (0.00-0.20); BILIRUBIN,INDIRECT 0.7 mg/dl (0-1.1); BILIRUBIN,TOTAL 1.5 mg/dl (0.2-1.3); CALCIUM 8.2 mg/dl (8.4-10.2); CREATININE 3.23 mg/dl (0.61-1.24); POTASSIUM 3.3 mmol/L (3.5-5.1); TOTAL PROTEIN 5.7 g/dl (6.1-8.1)
[2016-11-22] MEDS ORDERED: POTASSIUM CHLORIDE 250 ML IVPB ONE (07:30)
[2016-11-22] MEDS: FAMOTIDINE 20 MG INJ IV SCH (08:08)
[2016-11-22] MEDS: ASPIRIN (EC) 81 MG TAB PO SCH (08:09)
[2016-11-22] MEDS: TICAGRELOR 90 MG TABLET PO SCH ×2 (08:13→20:32)
--- NOTE | 2016-11-22 08:29 | PN ---
DATE: 11/22/2016 CARDIOLOGY FOLLOWUP PROGRESS NOTE AND CRITICAL CARE NOTE SUBJECTIVE: Discussed with the staff. Rhythm strip reviewed. The patient is still on Levophed ___ _. He has converted back to sinus rhythm on amiodarone drip. He still has intraaortic balloon pump in place. The patient is nonresponsive at this point, sedated. According to the staff, he follows basic commands and squeezes hands ____ sedation. History was reviewed. Occasional/frequent PVCs, but no VT noted. MEDICATIONS: Reviewed as per medication reconciliation, personally reviewed. PHYSICAL EXAMINATION: VITAL SIGNS: Temperature 98.6, heart rate of 60, blood pressure 107/52, respiratory rate of 27, sat urating 98%. HEENT: Normocephalic, atraumatic. Obese gentleman. Status post intubation on the vent. CARDIOVASCULAR: Regular rate and rhythm. Systolic murmur. PULMONARY: Anteriorly with no wheezes. GASTROINTESTINAL: Soft, obese, nontender. EXTREMITIES: With trivial edema. Cyanosis noted on bilateral toes. NEUROLOGIC: Sedated. LABORATORY: Shows WBC of 13.7, hemoglobin 9.5, platelets of 215. Sodium 142, potassium 3.3, BUN of 59, creatinine 3.23, glucose of 148. AST of 507. ALT of 2134. ASSESSMENT AND PLAN: 1. Status post cardiac arrest secondary to ventricular tachycardia. 2. Status post recent ST-elevation myocardial infarction. 3. Hypoxemic hypercapneic respiratory failure with intubation on the vent. 4. Cardiogenic shock. 5. Coagulopathy with elevated INR, most likely consistent with shock liver. 6. Elevated LFT consistent with shock liver, slowly improving. 7. Diabetes. 8. History of hypertension, currently hypotensive in shock. 9. Metabolic acidosis. 10. Dyslipidemia. 11. History of smoking. 12. History of congestive heart failure. 13. Ischemic cardiomyopathy. 14. Paroxysmal atrial fibrillation. RECOMMENDATIONS: Will replace the electrolytes including the potassium. I will remove the intraaor tic balloon pump, appears to be stable for now for removal. Also with the cyanosis seen in the toes , will try to remove the sheath as soon as possible as well after that. The patient has congestions , and according to the staff, also has secretions. Also, possible infiltrate in the lung. Consider addition of antibiotics as well. For now, we will place her on Zosyn. Continue with the ICU care. I will try to wean off the Levophed as tolerated. Continue with the ICU care. More than 39 minutes of critical care time was spent in management of this patient excluding any pro cedures. Dictated By: SERENA ALCARAZ MD AV/NTS Conf#: [id number] DID#: [id number] CC: PIO VEGA MD;*EndCC*
[2016-11-22] MEDS: PIPER-TAZO 2.25 GM (PMX) 50 ML IVPB SCH ×3 (08:40→17:05)
--- NOTE | 2016-11-22 08:57 | PN ---
Date/Time of Note Date/Time of Note DATE: 11/22/16 TIME: 08:47 Assessment/Plan VTE Prophylaxis VTE Prophylaxis Intervention: other (on antiplatelets) VTE Contraindication Reason: blood coagulation disorder Lines/Catheters IV Catheter Type (from Nrsg): Central Line Central line still needed: Yes (for IV access ) Urinary Cath still in place: Yes Reason Cath still needed: other (indicate) ([facility], monitoring UOP) Assessment/Plan Assessment/Plan 56-year-old male with: 1. ST elevation myocardial infarction with a hemodynamic instability, status post ventricular tachycardia, cardioverted status post angiogram with PCI to the circumflex, OFF ballon pump this AM Still on Levo, Fentanyl and Propofol for sedation Dr. Simeon following, on Amiodarone gtt with episode of A fib yesterday, also Digoxin given, on Brilinta and ASA. Pulmonary critical care following 2. Acute respiratory failure secondary to cardiogenic shock and ST elevation myocardial infarction. Also with history of chronic obstructive pulmonary disease Intubated and sedated on Fentanyl and Propofol CXR with CHF exacerbation, will start diuresis when more stable and OK with cardiology and Nephrology. Yellow sputum noted, sputum cx pending and started on Zosyn this AM Pulmonary for Vent management. 3. Acute kidney injury on probable chronic kidney disease, likely secondary to acute tubular necrosis in this situation. Renal function improving. Repleting hypokalemia On IVF now. UOP OK Renal US mostly unremarkable Nephrology, Dr Welch following. 4. Acute ischemic changes b/l toes, now seems better perfused but likely embolic events with angio. Pulses present 5. Shock Liver, with elevated LFTs and coagulopathy currently. Monitor closely, improving. Avoid hepatotoxic agents 6. Coagulopathy, 2ry to shock liver likely. Monitor, patient did get Vit Kx1. Resolving 7. Diabetes mellitus. His blood sugars are fairly stable. A1c 7.1 Continue sliding scale insulin. 8. Obstructive sleep apnea on CPAP at night as outpatient. 9. Tobacco use. Hopefully the patient will quit after this. Nicotine patch as needed. 10. Morbid obesity. Prophylaxis. Pepcid for GI ppx and SCDs. DISPOSITION: Guarded prognosis still and patient remains critical. Off balloon pump Subjective 24 Hr Interval Summary Free Text/Dictation Patient sedated and intubated OFF balloon pump this AM Noted ischemic changes toes bilaterally and some small necrotic spots LE b/l, likely 2ry to embolic event with angio Pulses OK with doppler Exam/Review of Systems Vital Signs Vitals Vital Signs Date Time Temp Pulse Resp B/P Pulse Ox O2 Delivery O2 Flow Rate FiO2 11/22/16 05:45 60 27 107/52 98 Mechanical Ventilator 11/22/16 05:20 30 11/22/16 04:00 98.6 11/19/16 13:42 15 Intake and Output 11/21/16 11/21/16 11/22/16 15:00 23:00 07:00 Intake Total 993.24 ml 1063.665 ml 713.86 ml Output Total 670 ml 900 ml 220 ml Balance 323.24 ml 163.665 ml 493.86 ml Exam Constitutional: obese, other (sedated and intubated ) Respiratory: diminished breath sounds (bases bilaterally ) Cardiovascular: nl pulses, regular rate and rhythm Gastrointestinal: non-tender, soft Musculoskeletal: nl extremities to inspection Extremities: normal pulses, other (no edema, clubbing or cyanosis ) Neurological: other (sedated and intubated ) Results Result Diagram: 11/22/16 0400 11/22/16 0400 Results 24 hrs Laboratory Tests Test 11/21/16 09:02 11/21/16 12:51 11/21/16 16:24 11/21/16 16:26 Bedside Glucose 149 150 153 Sodium Level 141 Potassium Level 3.5 Chloride Level 102 Carbon Dioxide Level 31 Anion Gap 12 Blood Urea Nitrogen 66 H Creatinine 3.70 H Glucose Level 134 Calcium Level 8.1 L Test 11/21/16 21:10 11/22/16 01:26 11/22/16 04:00 11/22/16 05:19 Bedside Glucose 156 160 152 White Blood Count 13.7 H Red Blood Count 3.09 L Hemoglobin 9.5 L Hematocrit 28.3 L Mean Corpuscular Volume 91.6 Mean Corpuscular Hemoglobin 30.7 Mean Corpuscular Hemoglobin Concent 33.6 Red Cell Distribution Width 13.4 Platelet Count 215 Mean Platelet Volume 11.3 H Neutrophils % 89.0 H Lymphocytes % 5.5 L Monocytes % 4.0 Eosinophils % 0.6 Basophils % 0.1 Nucleated Red Blood Cells % 0.2 H Neutrophils # 12.2 H Lymphocytes # 0.8 Monocytes # 0.6 Eosinophils # 0.1 Basophils # 0.0 Nucleated Red Blood Cells # 0.0 Prothrombin Time 18.8 H Prothrombin Time Ratio 1.5 INR International Normalized Ratio 1.56 Activated Partial Thromboplast Time 28.5 Sodium Level 142 Potassium Level 3.3 L Chloride Level 104 Carbon Dioxide Level 31 Anion Gap 10 Blood Urea Nitrogen 59 H Creatinine 3.23 H Glucose Level 148 Calcium Level 8.2 L Phosphorus Level 4.2 Magnesium Level 2.2 Total Bilirubin 1.5 H Direct Bilirubin 0.80 #H Indirect Bilirubin 0.7 Aspartate Amino Transf (AST/SGOT) 507 #H Alanine Aminotransferase (ALT/SGPT) 2134 H Alkaline Phosphatase 114 Total Protein 5.7 L Albumin 3.0 L Globulin 2.70 Albumin/Globulin Ratio 1.11 Medications Medications Current Medications Aspirin (Halfprin) 81 mg DAILY PO Last administered on 11/22/16 08:09; Admin Dose 81 MG; Start 11/20/16 at 09:00 Ticagrelor 90 mg 90 mg BID PO Last administered on 11/22/16 08:13; Admin Dose 90 MG; Start 11/19/16 at 21:00 Propofol 100 ml @ 3.818 mls/ hr Q12H IV Last administered on 11/22/16 05:26; Admin Dose 15.272 MLS/HR; Start 11/19/16 at 16:30 Fentanyl (Sublimaze) 100 ml @ 2.5 mls/hr TITRATE IV Last administered on 21:42; Admin Dose 2.5 MLS/HR; Start 11/19/16 at 17:00 Ondansetron HCl (Zofran Inj) 4 mg Q6H PRN IV NAUSEA AND/OR VOMITING; Start 04/27 at 17:00 Acetaminophen (Tylenol Liquid) 650 mg Q6H PRN PO PAIN LEVEL 1-3 OR FEVER; Start 11/19/16 at 17:00 Acetaminophen (Tylenol Supp) [address] PAIN LEVEL 1-3 OR FEVER; Start 11/19/16 at 17:00 Docusate Sodium (Colace) 100 mg Q12H PRN PO CONSTIPATION; Start 11/19/16 at 17: 00 Magnesium Hydroxide (Milk Of Mag) 30 ml DAILY PRN PO CONSTIPATION; Start at 17:00 Bisacodyl (Dulcolax Supp) [address] CONSTIPATION; Start 11/19/16 at 17 :00 Famotidine (Pepcid Iv) 20 mg DAILY IV Last administered on 11/22/16 08:08; Admin Dose 20 MG; Start 11/19/16 at 17:00 Insulin Aspart (Novolog Insulin Pen) NOVOLOG *MODERATE* ALGORI... Q4 SC Last administered on 11/22/16 05:25; Admin Dose 2 UNIT; Start 11/19/16 at 17:30 Miscellaneous Information 1 ea NOTE XX ; Start 11/19/16 at 17:30 Glucose (Glutose) 15 gm Q15M PRN PO DECREASED GLUCOSE; Start 11/19/16 at 17:30 Glucose (Glutose) 22.5 gm Q15M PRN PO DECREASED GLUCOSE; Start 11/19/16 at 17: 30 Dextrose (D50w Syringe) 25 ml Q15M PRN IV DECREASED GLUCOSE; Start 11/19/16 at 17:30 Dextrose (D50w Syringe) 50 ml Q15M PRN IV DECREASED GLUCOSE; Start 11/19/16 at 17:30 Glucagon (Glucagen) 1 mg Q15M PRN IM DECREASED GLUCOSE; Start 11/19/16 at 17:30 Glucose 15 gm 15 gm Q15M PRN BUCCAL DECREASED GLUCOSE; Start 11/19/16 at 17:30 Norepinephrine 16 mg/Dextrose 500 ml @ 1.875 mls/ hr TITRATE IV Last administered on 11/22/16 01:11; Admin Dose 7.5 MLS/HR; Start 11/20/16 at 19:30 Amiodarone HCl 900 mg/Dextrose 500 ml @ 0 mls/hr Q0M IV Last administered on 16:06; Admin Dose 33.4 MLS/HR; Start 11/21/16 at 14:30; Stop 11/22/16 at 14:29 Dextrose/Sodium Chloride 1,000 ml @ 75 mls/hr [id number] IV Last administered on 11/21/16 21:20; Admin Dose 75 MLS/HR; Start 11/21/16 at 21:00 Potassium Chloride 250 ml @ 62.5 mls/hr ONCE ONCE IVPB Last administered on 08:18; Admin Dose 62.5 MLS/HR; Start 11/22/16 at 07:30; Stop 11/22/16 at 11:29 Piperacillin Sod/ Tazobactam Sod (Zosyn 2.25gm/ 50ml (Pmx)) 50 ml @ 100 mls/hr Q6 IVPB Last administered on 11/22/16t 08:40; Admin Dose 100 MLS/HR; Start at 08:25 PIO VEGA Nov 22, 2016 08:57
--- NOTE | 2016-11-22 09:46 | SP ---
DATE OF PROCEDURE: 11/22/2016 NAME OF PROCEDURE: Removal of intraaortic balloon pump. INDICATIONS: The patient with cardiogenic shock requiring intraaortic balloon pump, currently impro linn. Also ____ once I removed the balloon pump. PROCEDURE IN DETAIL: The balloon pump was placed on standby. Sutures were removed after it was ankita rilized. The balloon pump was removed ____ for now. No complications. Dictated By: SERENA ALCARAZ MD AV/JUANY Conf#: [id number] DID#: [id number] CC: PIO VEGA MD;*EndCC*
--- NOTE | 2016-11-22 10:07 | RADRPT ---
PROCEDURE: XR Chest. CLINICAL INDICATION: CHF TECHNIQUE: An AP view of the chest was obtained. COMPARISON: Chest x-ray dated 11/21/2016 FINDINGS: The endotracheal tube tip is approximately 4.4 cm above the margot. The tip of the enteric tube ex tends below the left diaphragm. Lung volumes are low. There is prominence of the interstitial and central pulmonary vascular santos ngs. No pleural effusion or pneumothorax is seen. The cardiomediastinal silhouette is mildly enl arged . Calcifications are seen within the aortic arch. The osseous structures demonstrate senescen t changes. IMPRESSION: 1. Findings suggestive of pulmonary vascular congestion. No significant interval change. 2. Low lung volumes. 3. Mild cardiomegaly and aortic atherosclerosis. 4. Tubes and lines, as described above. RPTAT: HH .Florence Torrez MD, MD Date Time Electronically viewed and signed by .Florence Torrez MD, on 11/22/2016 10:07 .G/
[2016-11-22] MEDS: DEXTROSE 5%-0.45% NACL 1,000 ML IV SCH (10:44)
--- NOTE | 2016-11-22 11:29 | PN ---
DATE: 11/22/2016 SUBJECTIVE: The patient, Jose E Macias remains minimally responsive on mechanical ventilation, statu s post removal of intraaortic balloon pump, still requires low dose vasopressor. PHYSICAL EXAMINATION: VITAL SIGNS: Temperature 98, pulse 57, blood pressure 119/70, O2 sat 96%, FIO2 30%, orally intubate d. HEENT: Dry mucous membranes. Pupils equal, react to light. HEART: S1, S2 heart sounds. No murmurs. CHEST: Diminished air entry bilaterally. ABDOMEN: Soft, nontender, no guarding or rebound. EXTREMITIES: No cyanosis, clubbing, edema +1. He has necrotic toes with a line of demarcation. LABORATORY DATA: White count 13.7, hemoglobin 9.5, platelets of 215, BUN 59, creatinine 3.23, INR 1 .56. ABG: pH 7.48, pCO2 of 28, pO2 of 100. Chest x-ray was reviewed, shows ongoing vascular congestion, low lung volumes. ASSESSMENT AND PLAN: 1. Acute hypoxemic respiratory failure, possible early infiltrate. 2. Status post ST elevation myocardial infarction with PTCA to circumflex, status post intraaortic balloon pump. 3. Renal insufficiency, now with evidence of necrosis of the lower extremities. 4. Acute kidney injury, likely acute tubular necrosis. Continue IV fluids. 5. Shock liver. 6. Diabetes mellitus. 7. Probable underlying obstructive sleep apnea. PLAN: 1. Continue vasopressors as needed. 2. Broad spectrum antibiotic coverage. 3. Gentle volume resuscitation. 4. Continue mechanical ventilation. 5. Wound care as needed. 6. DVT and GI prophylaxis. Dictated By: HARI HINES Conf#: [id number] DID#: [id number]
--- NOTE | 2016-11-22 17:22 | CONS ---
Date/Time of Note Date/Time of Note DATE: 11/22/16 TIME: 17:19 Assessment/Plan Assessment/Plan Additional Assessment/Plan 1. Acute kidney injury on possible previous chronic kidney disease with last creatinine known about 1.48 secondary to acute tubular necrosis from ischemic acute tubular necrosis from cardiogenic shock. 2. Acute respiratory failure from cardiogenic shock, currently intubated on ventilator.s/p Extubation 11/22/16 3. Acute non-ST elevation myocardial infarction, S/p IABP , now off, . 4. History of possible chronic kidney disease secondary to diabetic nephropathy , unknown stage. 5. History of type 2 diabetes mellitus. 6. History of hypertension. Plan: BUN/Cr improving, good urine ouptut, 1.9 liter, expecting renal function to improve continue IVF D51/2 NS at 75 cc/hr Ballon pump removed in AM and pt just extubated, doing fine, no stridor Consultation Date/Type/Reason Admit Date/Time Nov 19, 2016 at 16:09 Initial Consult Date Nov Type of Consultation: NEPHROLOGY Referring Provider: PIO VEGA Exam/Review of Systems Vital Signs Vitals Vital Signs Date Time Temp Pulse Resp B/P Pulse Ox O2 Delivery O2 Flow Rate FiO2 11/22/16 16:15 96 22 114/69 100 11/22/16 16:00 98.6 Mechanical Ventilator 11/22/16 15:59 30 11/19/16 13:42 15 Intake and Output 11/21/16 11/21/16 11/22/16 15:00 23:00 07:00 Intake Total 993.24 ml 1063.665 ml 941.58 ml Output Total 670 ml 900 ml 290 ml Balance 323.24 ml 163.665 ml 651.58 ml Exam GENERAL: just extubated, on Face mask.. NECK: Supple, no JVD, no lymphadenopathy. LUNGS: Bilateral coarse breath sounds with minimal expiratory wheezing present. HEART: S1, S2, tachycardia, no murmur. ABDOMEN: Soft, morbidly obese. EXTREMITIES: 1 to 2+ pitting edema. No clubbing, cyanosis. NEUROLOGICAL: Uncooperative for exam due to the sedation. PSYCHIATRIC: Not able to assess at this point. Results Result Diagram: 11/22/16 0400 11/22/16 0400 Results 24 hrs Laboratory Tests Test 11/21/16 21:10 11/22/16 01:26 11/22/16 04:00 11/22/16 05:19 Bedside Glucose 156 160 152 White Blood Count 13.7 H Red Blood Count 3.09 L Hemoglobin 9.5 L Hematocrit 28.3 L Mean Corpuscular Volume 91.6 Mean Corpuscular Hemoglobin 30.7 Mean Corpuscular Hemoglobin Concent 33.6 Red Cell Distribution Width 13.4 Platelet Count 215 Mean Platelet Volume 11.3 H Neutrophils % 89.0 H Lymphocytes % 5.5 L Monocytes % 4.0 Eosinophils % 0.6 Basophils % 0.1 Nucleated Red Blood Cells % 0.2 H Neutrophils # 12.2 H Lymphocytes # 0.8 Monocytes # 0.6 Eosinophils # 0.1 Basophils # 0.0 Nucleated Red Blood Cells # 0.0 Prothrombin Time 18.8 H Prothrombin Time Ratio 1.5 INR International Normalized Ratio 1.56 Activated Partial Thromboplast Time 28.5 Sodium Level 142 Potassium Level 3.3 L Chloride Level 104 Carbon Dioxide Level 31 Anion Gap 10 Blood Urea Nitrogen 59 H Creatinine 3.23 H Glucose Level 148 Calcium Level 8.2 L Phosphorus Level 4.2 Magnesium Level 2.2 Total Bilirubin 1.5 H Direct Bilirubin 0.80 #H Indirect Bilirubin 0.7 Aspartate Amino Transf (AST/SGOT) 507 #H Alanine Aminotransferase (ALT/SGPT) 2134 H Alkaline Phosphatase 114 Total Protein 5.7 L Albumin 3.0 L Globulin 2.70 Albumin/Globulin Ratio 1.11 Test 11/22/16 09:05 11/22/16 13:30 Bedside Glucose 157 159 Medications Medications Current Medications Aspirin (Halfprin) 81 mg DAILY PO Last administered on 11/22/16 08:09; Admin Dose 81 MG; Start 11/20/16 at 09:00 Ticagrelor 90 mg 90 mg BID PO Last administered on 11/22/16 08:13; Admin Dose 90 MG; Start 11/19/16 at 21:00 Propofol 100 ml @ 3.818 mls/ hr Q12H IV Last administered on 11/22/16 13:32; Admin Dose 12.218 MLS/HR; Start 11/19/16 at 16:30 Fentanyl (Sublimaze) 100 ml @ 2.5 mls/hr TITRATE IV Last administered on 21:42; Admin Dose 2.5 MLS/HR; Start 11/19/16 at 17:00 Ondansetron HCl (Zofran Inj) 4 mg Q6H PRN IV NAUSEA AND/OR VOMITING; Start 04/27 at 17:00 Acetaminophen (Tylenol Liquid) 650 mg Q6H PRN PO PAIN LEVEL 1-3 OR FEVER; Start 11/19/16 at 17:00 Acetaminophen (Tylenol Supp) 650 mg Q4H PRN [place] PAIN LEVEL 1-3 OR FEVER; Start 11/19/16 at 17:00 Docusate Sodium (Colace) 100 mg Q12H PRN PO CONSTIPATION; Start 11/19/16 at 17: 00 Magnesium Hydroxide (Milk Of Mag) 30 ml DAILY PRN PO CONSTIPATION; Start at 17:00 Bisacodyl (Dulcolax Supp) 10 mg DAILY PRN [place] CONSTIPATION; Start 11/19/16 at 17 :00 Famotidine (Pepcid Iv) 20 mg DAILY IV Last administered on 11/22/16 08:08; Admin Dose 20 MG; Start 11/19/16 at 17:00 Insulin Aspart (Novolog Insulin Pen) NOVOLOG *MODERATE* ALGORI... Q4 SC Last administered on 11/22/16 17:14; Admin Dose 2 UNIT; Start 11/19/16 at 17:30 Miscellaneous Information 1 ea NOTE XX ; Start 11/19/16 at 17:30 Glucose (Glutose) 15 gm Q15M PRN PO DECREASED GLUCOSE; Start 11/19/16 at 17:30 Glucose (Glutose) 22.5 gm Q15M PRN PO DECREASED GLUCOSE; Start 11/19/16 at 17: 30 Dextrose (D50w Syringe) 25 ml Q15M PRN IV DECREASED GLUCOSE; Start 11/19/16 at 17:30 Dextrose (D50w Syringe) 50 ml Q15M PRN IV DECREASED GLUCOSE; Start 11/19/16 at 17:30 Glucagon (Glucagen) 1 mg Q15M PRN IM DECREASED GLUCOSE; Start 11/19/16 at 17:30 Glucose 15 gm 15 gm Q15M PRN BUCCAL DECREASED GLUCOSE; Start 11/19/16 at 17:30 Norepinephrine 16 mg/Dextrose 500 ml @ 1.875 mls/ hr TITRATE IV Last administered on 11/22/16 01:11; Admin Dose 7.5 MLS/HR; Start 11/20/16 at 19:30 Dextrose/Sodium Chloride 1,000 ml @ 75 mls/hr [id number] IV Last administered on 11/22/16 10:44; Admin Dose 75 MLS/HR; Start 11/21/16 at 21:00 Piperacillin Sod/ Tazobactam Sod (Zosyn 2.25gm/ 50ml (Pmx)) 50 ml @ 100 mls/hr Q6 IVPB Last administered on 11/22/16 17:05; Admin Dose 100 MLS/HR; Start at 08:25 FÁTIMA PERES MD Nov 22, 2016 17:22
[2016-11-23] VITALS (89 sets, daily range): BP systolic 93–145; BP diastolic 50–99; PULSE 55–106; RESP 13–27
[2016-11-23] MEDS: PIPER-TAZO 2.25 GM (PMX) 50 ML IVPB SCH ×5 (00:53→23:57)
[2016-11-23] MEDS: DEXTROSE 5%-0.45% NACL 1,000 ML IV SCH ×2 (00:53→15:45)
[2016-11-23] MEDS: INSULIN ASPART [NOVOLOG] 3 ML PEN SC SCH ×6 (00:56→21:00)
[2016-11-23] MEDS: PROPOFOL 100 ML IV SCH ×9 (01:29→23:42)
[2016-11-23] MEDS: FENTAnyl (DRIP) 1000 mcg/100mL 100 ML IV SCH ×2 (01:29→12:51)
[2016-11-23 06:31] LABS: ADD SCAN DIFF NO
[2016-11-23 06:40] LABS: BASOPHIL # 0.1 10^3/ul (0.0-0.1); BASOPHILS % 0.4 % (0.0-2.0); EOSINOPHILS # 0.3 10^3/ul (0.0-0.5); EOSINOPHILS % 2.5 % (0.0-7.0); HEMATOCRIT 31.1 % (42.0-52.0); HEMOGLOBIN 9.8 g/dl (14.0-18.0); LYMPHOCYTES # 0.8 10^3/ul (0.8-2.9); LYMPHOCYTES % 6.9 % (15.0-51.0); MEAN CORPUSCULAR HGB CONC 31.5 g/dl (32.0-37.0); MEAN CORPUSCULAR VOLUME 95.1 fl (82.0-101.0); MONOCYTE # 0.9 10^3/ul (0.3-0.9); NEUTROPHIL # 9.2 10^3/ul (1.6-7.5); NEUTROPHILS % 81.4 % (39.0-77.0); PLATELET COUNT 196 10^3/UL (140-415); RED BLOOD COUNT 3.27 10^6/ul (4.70-6.10); RED CELL DISTRIBUTION WIDTH 13.7 % (11.5-14.5); WHITE BLOOD COUNT 11.3 10^3/ul (4.8-10.8)
[2016-11-23 07:04] LABS: INR 1.39; PROTIME 17.1 Sec (12.2-14.2); PT RATIO 1.3
[2016-11-23 07:18] LABS: ALBUMIN 3.1 g/dl (3.3-4.9); ALBUMIN/GLOBULIN RATIO 1.1; BILIRUBIN,DIRECT 1.1 mg/dl (0.00-0.20); BILIRUBIN,INDIRECT 0.7 mg/dl (0-1.1); BILIRUBIN,TOTAL 1.8 mg/dl (0.2-1.3); CALCIUM 8.4 mg/dl (8.4-10.2); CREATININE 2.64 mg/dl (0.61-1.24); MAGNESIUM 2.1 mg/dl (1.7-2.5); POTASSIUM 3.5 mmol/L (3.5-5.1); TOTAL PROTEIN 5.9 g/dl (6.1-8.1)
[2016-11-23 07:25] LABS: CK-MB 1.84 ng/ml (0.0-2.4); TROPONIN-I 12.4 ng/ml (0.00-0.12)
[2016-11-23] MEDS ORDERED: POTASSIUM CHLORIDE (SR) 20 MEQ TAB PO STA (07:35)
[2016-11-23] MEDS: TICAGRELOR 90 MG TABLET PO SCH (08:24)
[2016-11-23] MEDS: ASPIRIN (EC) 81 MG TAB PO SCH (08:25)
[2016-11-23] MEDS: AMIODARONE 200 MG TAB GTB SCH (08:25)
[2016-11-23] MEDS: FAMOTIDINE 20 MG INJ IV SCH (08:34)
--- NOTE | 2016-11-23 08:51 | PN ---
DATE: 11/23/2016 CARDIOLOGY FOLLOWUP SUBJECTIVE: Discussed with the staff from the day shift, as well as the cnc machinist 2nd shift. Discussed with yesterday as well. The patient remains intubated on the vent. Was able to be taken off of the intraaortic balloon pump successfully yesterday, was taken off of the Levophed yesterday as w ell. The patient had gone into atrial fibrillation last night; however, converted back to sinus rhy thm. Currently remains in sinus rhythm, currently intubated on the vent still. MEDICATIONS: Reviewed. PHYSICAL EXAMINATION: VITAL SIGNS: Temperature 99.2, heart rate of 60, blood pressure of 108/65, respiratory rate of 20, saturating 99%. HEENT: Normocephalic, atraumatic. Status post intubation, on the vent. Obese gentleman. CARDIOVASCULAR: Regular rate and rhythm, systolic murmur. PULMONARY: Anteriorly with no wheezes, mild rhonchi. GASTROINTESTINAL: Obese, soft, nontender. EXTREMITIES: Trivial edema. Positive cyanosis of the bilateral toes. NEUROLOGIC: Sedated now. LABORATORY: Shows a digoxin level of 0.6. Sodium 145, potassium 3.5, BUN of 44, creatinine of 2.64 , glucose of 140. Mag is 2.1. Troponin of 12.4. ProBNP of 5940. Albumin is 3.1. WBC of 11.3, he moglobin 9.8, platelets of 196. Chest x-ray done yesterday shows pulmonary vascular congestion. ASSESSMENT AND PLAN: 1. Status post cardiac arrest. 2. Ventricular tachycardia, sustained. 3. ST elevation myocardial infarction, status post percutaneous coronary intervention of left circu mflex artery with suboptimal flow. 4. Paroxysmal atrial fibrillation. 5. Hypoxemic hypercapneic respiratory failure, status post intubation on the vent, status post lact ic acidosis. 6. History of hypertension. Currently hypotensive. 7. Diabetes. 8. Cyanosis of the toes. 9. Ischemic cardiomyopathy. 10. Congestive heart failure. 11. Renal failure, slowly improving. 12. Possible pneumonia. RECOMMENDATIONS: I will replace the potassium. Currently off of pressors. I will add p.o. amiodar one. Heart rate control will be continued. Continue with ICU care and ventilator support, weaning as tolerated. Try to start NG feeding if he is able to tolerate it. More than 39 minutes of critical care time was spent managing this patient, excluding any procedures . Dictated By: SERENA CENTENO/JUANY Conf#: [id number] DID#: [id number]
[2016-11-23 08:54] LABS: Allen Test ACCEPTAB; Arterial Base Excess 3.7 mmol/L (-3.0-3); Arterial COHb 0.3 % (0.0-3.0); Arterial Fraction of Oxyhgb 97.2 % (93.0-99.0); Arterial HCO3 27.3 mmol/L (22.0-26.0); Arterial MetHb 0.4 % (0.0-1.5); Arterial Total Hemglobin 10.3 g/dl (12.0-18.0); MODE VENT - AC
--- NOTE | 2016-11-23 09:26 | PN ---
Date/Time of Note Date/Time of Note DATE: 11/23/16 TIME: 08:52 Assessment/Plan VTE Prophylaxis VTE Prophylaxis Intervention: other Lines/Catheters IV Catheter Type (from Nrsg): Central Line Central line still needed: Yes (for IV access ) Urinary Cath still in place: Yes Reason Cath still needed: other (indicate) (NEHA, monitoring UOP ) Assessment/Plan Assessment/Plan 56-year-old male with: 1. ST elevation myocardial infarction with a hemodynamic instability, status post ventricular tachycardia, cardioverted status post angiogram with PCI to the circumflex, OFF balloon pump, hemodynamically stable but not ready to extubate, patient very restless, back on sedation. Off Levo and on Fentanyl and Propofol for sedation Dr. Simeon following, on Brilinta and ASA. Off Amio Pulmonary critical care following 2. Acute respiratory failure secondary to cardiogenic shock and ST elevation myocardial infarction. Also with history of chronic obstructive pulmonary disease Intubated and sedated on Fentanyl and Propofol, nor ready for extubation, restless but not following commands. CXR with CHF exacerbation, will start diuresis when more stable and OK with cardiology and Nephrology. On Zosyn Pulmonary for Vent management. Start tube feedings 3. Acute kidney injury on probable chronic kidney disease, likely secondary to acute tubular necrosis in this situation. Renal function improving. Repleting K prn On IVF now. UOP OK Renal US mostly unremarkable Nephrology, Dr Welch following. 4. Acute ischemic changes b/l toes, now seems better perfused but likely embolic events with angio. Pulses present 5. Shock Liver, with elevated LFTs and coagulopathy currently. Monitor closely, improving. Avoid hepatotoxic agents 6. Coagulopathy, 2ry to shock liver likely. Monitor, patient did get Vit Kx1. Resolving 7. Diabetes mellitus. His blood sugars are fairly stable. A1c 7.1 Continue sliding scale insulin. 8. Obstructive sleep apnea on CPAP at night as outpatient. 9. Tobacco use. Hopefully the patient will quit after this. Nicotine patch today. 10. Morbid obesity. Prophylaxis. Pepcid for GI ppx and SCDs. DISPOSITION: Guarded prognosis still and patient remains critical. Off balloon pump and pressors for now. Not ready to extubate. Subjective 24 Hr Interval Summary Free Text/Dictation Patient agitated this AM and not ready for extubation Back on sedation and restraints Off pressors Afebrile Exam/Review of Systems Vital Signs Vitals Vital Signs Date Time Temp Pulse Resp B/P Pulse Ox O2 Delivery O2 Flow Rate FiO2 11/23/16 08:30 61 21 106/66 97 Mechanical Ventilator 11/23/16 08:00 98.1 11/23/16 05:05 30 11/19/16 13:42 15 Intake and Output 11/22/16 11/22/16 11/23/16 15:00 23:00 07:00 Intake Total 1253.92 ml 668.720 ml 788.715 ml Output Total 805 ml 875 ml 775 ml Balance 448.92 ml -206.280 ml 13.715 ml Exam Constitutional: obese, other (agitated, intubated and back on sedation ), well developed ENMT: other (intubated ) Respiratory: diminished breath sounds (bases b/l ) Cardiovascular: nl pulses, regular rate and rhythm Gastrointestinal: non-tender, soft Musculoskeletal: other (toe mild ischemia improved, warm ) Extremities: normal pulses Neurological: other (agitated, back on sedation ) Results Result Diagram: 11/23/1628 11/23/1628 Results 24 hrs Laboratory Tests Test 11/22/16 09:05 11/22/16 13:30 11/22/16 17:05 11/22/16 20:29 Bedside Glucose 157 159 148 133 Test 11/23/16 00:55 11/23/16 05:28 11/23/16 05:45 Bedside Glucose 141 155 White Blood Count 11.3 H Red Blood Count 3.27 L Hemoglobin 9.8 L Hematocrit 31.1 L Mean Corpuscular Volume 95.1 Mean Corpuscular Hemoglobin 30.0 Mean Corpuscular Hemoglobin Concent 31.5 L Red Cell Distribution Width 13.7 Platelet Count 196 Mean Platelet Volume 11.0 H Neutrophils % 81.4 H Lymphocytes % 6.9 L Monocytes % 8.0 Eosinophils % 2.5 Basophils % 0.4 Nucleated Red Blood Cells % 0.0 Neutrophils # 9.2 H Lymphocytes # 0.8 Monocytes # 0.9 Eosinophils # 0.3 Basophils # 0.1 Nucleated Red Blood Cells # 0.0 Prothrombin Time 17.1 H Prothrombin Time Ratio 1.3 INR International Normalized Ratio 1.39 Sodium Level 145 H Potassium Level 3.5 Chloride Level 107 Carbon Dioxide Level 30 Anion Gap 12 Blood Urea Nitrogen 44 #H Creatinine 2.64 H Glucose Level 140 Calcium Level 8.4 Magnesium Level 2.1 Total Bilirubin 1.8 H Direct Bilirubin 1.10 H Indirect Bilirubin 0.7 Aspartate Amino Transf (AST/SGOT) 192 #H Alanine Aminotransferase (ALT/SGPT) 1409 H Alkaline Phosphatase 111 Creatine Kinase 54 Creatine Kinase Index 3.4 Creatinine Kinase MB (Mass) 1.84 Troponin I 12.400 *H B-Type Natriuretic Peptide 5940 H Total Protein 5.9 L Albumin 3.1 L Globulin 2.80 Albumin/Globulin Ratio 1.10 Digoxin Level 0.6 L Medications Medications Current Medications Aspirin (Halfprin) 81 mg DAILY PO Last administered on 11/23/16 08:25; Admin Dose 81 MG; Start 11/20/16 at 09:00 Ticagrelor 90 mg 90 mg BID PO Last administered on 11/23/16 08:24; Admin Dose 90 MG; Start 11/19/16 at 21:00 Propofol 100 ml @ 3.818 mls/ hr Q12H IV Last administered on 11/23/16 01:29; Admin Dose 12.218 MLS/HR; Start 11/19/16 at 16:30 Fentanyl (Sublimaze) 100 ml @ 2.5 mls/hr TITRATE IV Last administered on 01:29; Admin Dose 2.5 MLS/HR; Start 11/19/16 at 17:00 Ondansetron HCl (Zofran Inj) 4 mg Q6H PRN IV NAUSEA AND/OR VOMITING; Start 04/27 at 17:00 Acetaminophen (Tylenol Liquid) 650 mg Q6H PRN PO PAIN LEVEL 1-3 OR FEVER; Start 11/19/16 at 17:00 Acetaminophen (Tylenol Supp) 650 mg Q4H PRN [place] PAIN LEVEL 1-3 OR FEVER; Start 11/19/16 at 17:00 Docusate Sodium (Colace) 100 mg Q12H PRN PO CONSTIPATION; Start 11/19/16 at 17: 00 Magnesium Hydroxide (Milk Of Mag) 30 ml DAILY PRN PO CONSTIPATION; Start at 17:00 Bisacodyl (Dulcolax Supp) 10 mg DAILY PRN [place] CONSTIPATION; Start 11/19/16 at 17 :00 Famotidine (Pepcid Iv) 20 mg DAILY IV Last administered on 11/23/16 08:34; Admin Dose 20 MG; Start 11/19/16 at 17:00 Insulin Aspart (Novolog Insulin Pen) NOVOLOG *MODERATE* ALGORI... Q4 SC Last administered on 11/23/16 05:47; Admin Dose 2 UNIT; Start 11/19/16 at 17:30 Miscellaneous Information 1 ea NOTE XX ; Start 11/19/16 at 17:30 Glucose (Glutose) 15 gm Q15M PRN PO DECREASED GLUCOSE; Start 11/19/16 at 17:30 Glucose (Glutose) 22.5 gm Q15M PRN PO DECREASED GLUCOSE; Start 11/19/16 at 17: 30 Dextrose (D50w Syringe) 25 ml Q15M PRN IV DECREASED GLUCOSE; Start 11/19/16 at 17:30 Dextrose (D50w Syringe) 50 ml Q15M PRN IV DECREASED GLUCOSE; Start 11/19/16 at 17:30 Glucagon (Glucagen) 1 mg Q15M PRN IM DECREASED GLUCOSE; Start 11/19/16 at 17:30 Glucose 15 gm 15 gm Q15M PRN BUCCAL DECREASED GLUCOSE; Start 11/19/16 at 17:30 Norepinephrine 16 mg/Dextrose 500 ml @ 1.875 mls/ hr TITRATE IV Last administered on 11/22/16 01:11; Admin Dose 7.5 MLS/HR; Start 11/20/16 at 19:30 Dextrose/Sodium Chloride 1,000 ml @ 75 mls/hr [id number] IV Last administered on 11/23/16 00:53; Admin Dose 75 MLS/HR; Start 11/21/16 at 21:00 Piperacillin Sod/ Tazobactam Sod (Zosyn 2.25gm/ 50ml (Pmx)) 50 ml @ 100 mls/hr Q6 IVPB Last administered on 11/23/16 05:47; Admin Dose 100 MLS/HR; Start at 08:25 Amiodarone HCl (Cordarone) 200 mg DAILY GTB Last administered on 11/23/16 08: 25; Admin Dose 200 MG; Start 11/23/16 at 09:00 PIO VEGA Nov 23, 2016 09:06
--- NOTE | 2016-11-23 10:37 | RADRPT ---
PROCEDURE: XR Chest. CLINICAL INDICATION: Respiratory failure TECHNIQUE: An AP view of the chest was obtained. COMPARISON: Chest x-ray dated 11/22/2016 FINDINGS: The endotracheal tube tip is approximately 3.9 cm above the margot. The tip of the enteric tube ex tends below the left diaphragm. There is a right internal jugular central venous catheter with tip n ear the cavoatrial junction. There is prominence of the interstitial and central pulmonary vascular markings. No pleural effus ion or pneumothorax is seen. The cardiomediastinal silhouette is moderately enlarged. Calcification s are seen within the aortic arch. The osseous structures demonstrate senescent changes. IMPRESSION: 1. Findings suggestive of pulmonary vascular congestion. No significant interval change. 2. Moderate cardiomegaly and aortic atherosclerosis. 3. Tubes and lines, as described above. RPTAT: HH .Florence Torrez MD, Date Time Electronically viewed and signed by .Florence Torrez MD, on 11/23/2016 10:36 .G/
--- NOTE | 2016-11-23 10:41 | PN ---
DATE: 11/23/2016 PULMONARY FOLLOWUP SUBJECTIVE: Mr. Macias has significant agitation off sedation. He remains tachypneic and tachycard ic, not opening eyes or consistently following commands. PHYSICAL EXAMINATION: VITAL SIGNS: Temperature 98, pulse is 60, blood pressure 106/55, O2 saturation 96%, FIO2 of 40%, or ally intubated. HEENT: Dry mucous membranes. Pupils equal and reactive to light. CARDIAC: S1, S2, no added sounds or murmurs. CHEST: Diminished air entry bilaterally. ABDOMEN: Obese, soft, nontender, no guarding, no rebound. EXTREMITIES: No cyanosis, clubbing, 1+ edema. NEUROLOGIC: Generalized weakness. LABORATORY DATA: White count 11.3, hemoglobin 9.8, platelets of 196. INR 1.39. BUN 44, creatinine 2.64. ABG: pH of 7.47, pCO2 of 37, PaO2 of 110. Chest x-ray was reviewed, showed right lower lobe infiltrate. IMPRESSION: 1. Hypoxemic respiratory failure, possibly secondary to aspiration pneumonia. 2. ST elevation myocardial infarction with hemodynamic instability, status post percutaneous mitchell ry intervention to circumflex, now off intra-aortic balloon pump and vasopressors. 3. Encephalopathy, possibly toxic metabolic. 4. Acute kidney injury, probably secondary to acute tubular necrosis. 5. Peripheral ischemia, likely secondary to hypoperfusion from recent intra-aortic balloon pump and vasopressor requirements. 6. Underlying obstructive sleep apnea. 7. Evidence of shock liver secondary to hypoperfusion. PLAN: 1. Continue mechanical ventilation, patient not ready for weaning from ventilator. 2. Continue broad-spectrum antibiotics, currently on piperacillin/tazobactam. 3. Continue to wean off vasopressors as tolerated. 4. Initiation of tube feeding. 5. Rate control with amiodarone. 6. DVT and GI prophylaxis. Dictated By: YOANDY UMANA/JUANY Conf#: [id number] DID#: [id number]
--- NOTE | 2016-11-23 16:37 | CONS ---
Date/Time of Note Date/Time of Note DATE: 11/23/16 TIME: 15:57 Assessment/Plan Assessment/Plan Additional Assessment/Plan 1. Acute kidney injury on possible previous chronic kidney disease with last creatinine known about 1.48 secondary to acute tubular necrosis from ischemic acute tubular necrosis from cardiogenic shock. 2. Acute respiratory failure from cardiogenic shock, currently intubated on ventilator- failed weaning trial today 3. Acute non-ST elevation myocardial infarction, S/p IABP , now off, . 4. History of possible chronic kidney disease secondary to diabetic nephropathy , unknown stage. 5. History of type 2 diabetes mellitus. 6. History of hypertension. Plan: BUN/Cr improving, failed weaning trial today, will ressess in AM for extubation good urine ouptut, 2.3 liter, expecting renal function to improve continue IVF D51/2 NS at 75 cc/hr on Brilinat Post cath will continue to follow up on patient Consultation Date/Type/Reason Admit Date/Time Nov 19, 2016 at 16:09 Initial Consult Date Nov Type of Consultation: NEPHROLOGY Referring Provider: PIO VEGA 24 HR Interval Summary Free Text/Dictation pt remains in ICU, BUN/Cr slowly improving, Exam/Review of Systems Vital Signs Vitals Vital Signs Date Time Temp Pulse Resp B/P Pulse Ox O2 Delivery O2 Flow Rate FiO2 11/23/16 12:00 63 11/23/16 11:00 23 110/65 100 Mechanical Ventilator 11/23/16 08:00 98.1 11/23/16 05:05 30 11/19/16 13:42 15 Intake and Output 11/22/16 11/22/16 11/23/16 15:00 23:00 07:00 Intake Total 1253.92 ml 668.720 ml 879.960 ml Output Total 805 ml 875 ml 775 ml Balance 448.92 ml -206.280 ml 104.960 ml Exam GENERAL: no acute distress NECK: supple + Et tube LUNGS: Bilateral coarse breath sounds HEART: S1, S2, tachycardia, no murmur. ABDOMEN: Soft, morbidly obese. EXTREMITIES: 1 to 2+ pitting edema. No clubbing, cyanosis. NEUROLOGICAL: Uncooperative for exam PSYCHIATRIC: Not able to assess at this point. Results Result Diagram: 11/23/1628 11/23/16527 Results 24 hrs Laboratory Tests Test 11/22/16 17:05 11/22/16 20:29 11/23/16 00:55 11/23/16 05:28 Bedside Glucose 148 133 141 White Blood Count 11.3 H Red Blood Count 3.27 L Hemoglobin 9.8 L Hematocrit 31.1 L Mean Corpuscular Volume 95.1 Mean Corpuscular Hemoglobin 30.0 Mean Corpuscular Hemoglobin Concent 31.5 L Red Cell Distribution Width 13.7 Platelet Count 196 Mean Platelet Volume 11.0 H Neutrophils % 81.4 H Lymphocytes % 6.9 L Monocytes % 8.0 Eosinophils % 2.5 Basophils % 0.4 Nucleated Red Blood Cells % 0.0 Neutrophils # 9.2 H Lymphocytes # 0.8 Monocytes # 0.9 Eosinophils # 0.3 Basophils # 0.1 Nucleated Red Blood Cells # 0.0 Prothrombin Time 17.1 H Prothrombin Time Ratio 1.3 INR International Normalized Ratio 1.39 Sodium Level 145 H Potassium Level 3.5 Chloride Level 107 Carbon Dioxide Level 30 Anion Gap 12 Blood Urea Nitrogen 44 #H Creatinine 2.64 H Glucose Level 140 Calcium Level 8.4 Magnesium Level 2.1 Total Bilirubin 1.8 H Direct Bilirubin 1.10 H Indirect Bilirubin 0.7 Aspartate Amino Transf (AST/SGOT) 192 #H Alanine Aminotransferase (ALT/SGPT) 1409 H Alkaline Phosphatase 111 Creatine Kinase 54 Creatine Kinase Index 3.4 Creatinine Kinase MB (Mass) 1.84 Troponin I 12.400 *H B-Type Natriuretic Peptide 5940 H Total Protein 5.9 L Albumin 3.1 L Globulin 2.80 Albumin/Globulin Ratio 1.10 Digoxin Level 0.6 L Test 11/23/16 05:45 11/23/16 07:00 11/23/16 09:12 11/23/16 13:06 Bedside Glucose 155 133 182 Blood Gas Specimen Source Blood arterial Arterial Blood Date Drawn 11/23/2016 8:06:11 AM Arterial Blood pH (Temp corrected) 7.478 H Arterial Blood pCO2 (Temp correct) 37.7 Arterial Blood pO2 (Temp corrected) 110.6 H Arterial Blood HCO3 27.3 H Arterial Blood Base Excess 3.7 H Arterial Blood Oxygen Saturation 97.9 Keron Test ACCEPTAB Arterial Blood Gas Puncture Site Right Radial Arterial Blood Carboxyhemoglobin 0.3 Arterial Blood Methemoglobin 0.4 Blood Gas A-a O2 Differential 59.0 H Oxyhemoglobin Percent 97.2 Total Hemoglobin 10.3 L Blood Gas Temperature 37.0 Blood Gas Respiration Rate 20.0 Blood Gas Actual Respiration Rate 24 Blood Gas Modality VENT - AC FiO2 30.0 Blood Gas Tidal Volume 500.0 Blood Gas Low PEEP Setting 7.0 Blood Gas Notified Whom JLD Blood Gas Notified Time 11/23/2016 8:54:02 AM Medications Medications Current Medications Aspirin (Halfprin) 81 mg DAILY PO Last administered on 11/23/16 08:25; Admin Dose 81 MG; Start 11/20/16 at 09:00 Ticagrelor 90 mg 90 mg BID PO Last administered on 11/23/16 08:24; Admin Dose 90 MG; Start 11/19/16 at 21:00 Propofol 100 ml @ 3.818 mls/ hr Q12H IV Last administered on 11/23/16 15:44; Admin Dose 22.909 MLS/HR; Start 11/19/16 at 16:30 Fentanyl (Sublimaze) 100 ml @ 2.5 mls/hr TITRATE IV Last administered on 12:51; Admin Dose 2.5 MLS/HR; Start 11/19/16 at 17:00 Ondansetron HCl (Zofran Inj) 4 mg Q6H PRN IV NAUSEA AND/OR VOMITING; Start 04/27 at 17:00 Acetaminophen (Tylenol Liquid) 650 mg Q6H PRN PO PAIN LEVEL 1-3 OR FEVER; Start 11/19/16 at 17:00 Acetaminophen (Tylenol Supp) 650 mg Q4H PRN MD PAIN LEVEL 1-3 OR FEVER; Start 11/19/16 at 17:00 Docusate Sodium (Colace) 100 mg Q12H PRN PO CONSTIPATION; Start 11/19/16 at 17: 00 Magnesium Hydroxide (Milk Of Mag) 30 ml DAILY PRN PO CONSTIPATION; Start at 17:00 Bisacodyl (Dulcolax Supp) 10 mg DAILY PRN MD CONSTIPATION; Start 11/19/16 at 17 :00 Famotidine (Pepcid Iv) 20 mg DAILY IV Last administered on 11/23/16 08:34; Admin Dose 20 MG; Start 11/19/16 at 17:00 Insulin Aspart (Novolog Insulin Pen) NOVOLOG *MODERATE* ALGORI... Q4 SC Last administered on 11/23/16 13:08; Admin Dose 4 UNIT; Start 11/19/16 at 17:30 Miscellaneous Information 1 ea NOTE XX ; Start 11/19/16 at 17:30 Glucose (Glutose) 15 gm Q15M PRN PO DECREASED GLUCOSE; Start 11/19/16 at 17:30 Glucose (Glutose) 22.5 gm Q15M PRN PO DECREASED GLUCOSE; Start 11/19/16 at 17: 30 Dextrose (D50w Syringe) 25 ml Q15M PRN IV DECREASED GLUCOSE; Start 11/19/16 at 17:30 Dextrose (D50w Syringe) 50 ml Q15M PRN IV DECREASED GLUCOSE; Start 11/19/16 at 17:30 Glucagon (Glucagen) 1 mg Q15M PRN IM DECREASED GLUCOSE; Start 11/19/16 at 17:30 Glucose 15 gm 15 gm Q15M PRN BUCCAL DECREASED GLUCOSE; Start 11/19/16 at 17:30 Norepinephrine 16 mg/Dextrose 500 ml @ 1.875 mls/ hr TITRATE IV Last administered on 11/22/16 01:11; Admin Dose 7.5 MLS/HR; Start 11/20/16 at 19:30 Dextrose/Sodium Chloride 1,000 ml @ 75 mls/hr [id number] IV Last administered on 11/23/16 15:45; Admin Dose 75 MLS/HR; Start 11/21/16 at 21:00 Piperacillin Sod/ Tazobactam Sod (Zosyn 2.25gm/ 50ml (Pmx)) 50 ml @ 100 mls/hr Q6 IVPB Last administered on 11/23/16 12:50; Admin Dose 100 MLS/HR; Start at 08:25 Amiodarone HCl (Cordarone) 200 mg DAILY GTB Last administered on 11/23/16 08: 25; Admin Dose 200 MG; Start 11/23/16 at 09:00 FÁTIMA PERES MD Nov 23, 2016 16:08
[2016-11-24] VITALS (42 sets, daily range): BP systolic 93–116; BP diastolic 53–72; PULSE 54–63; RESP 15–28
[2016-11-24] MEDS: TICAGRELOR 90 MG TABLET PO SCH ×3 (00:02→20:48)
[2016-11-24] MEDS: INSULIN ASPART [NOVOLOG] 3 ML PEN SC SCH ×6 (01:00→20:45)
[2016-11-24] MEDS: PROPOFOL 100 ML IV SCH ×5 (04:19→21:27)
[2016-11-24 05:04] LABS: ADD SCAN DIFF NO
[2016-11-24 05:25] LABS: BASOPHILS % 0.3 % (0.0-2.0); EOSINOPHILS # 0.5 10^3/ul (0.0-0.5); HEMATOCRIT 29.2 % (42.0-52.0); HEMOGLOBIN 9.3 g/dl (14.0-18.0); LYMPHOCYTES % 9.5 % (15.0-51.0); MEAN CORPUSCULAR HEMOGLOBIN 30.8 pg (29.0-33.0); MEAN CORPUSCULAR HGB CONC 31.8 g/dl (32.0-37.0); MEAN CORPUSCULAR VOLUME 96.7 fl (82.0-101.0); MEAN PLATELET VOLUME 10.8 fl (7.4-10.4); MONOCYTES % 9.8 % (0.0-11.0); NEUTROPHIL # 7.5 10^3/ul (1.6-7.5); NEUTROPHILS % 74.2 % (39.0-77.0); PLATELET COUNT 169 10^3/UL (140-415); RED BLOOD COUNT 3.02 10^6/ul (4.70-6.10)
[2016-11-24 05:43] LABS: ALBUMIN 2.7 g/dl (3.3-4.9); ALBUMIN/GLOBULIN RATIO 0.93; BILIRUBIN,DIRECT 0.8 mg/dl (0.00-0.20); BILIRUBIN,INDIRECT 0.5 mg/dl (0-1.1); BILIRUBIN,TOTAL 1.3 mg/dl (0.2-1.3); CALCIUM 8.6 mg/dl (8.4-10.2); CREATININE 2.08 mg/dl (0.61-1.24); MAGNESIUM 2.2 mg/dl (1.7-2.5); POTASSIUM 3.6 mmol/L (3.5-5.1); TOTAL PROTEIN 5.6 g/dl (6.1-8.1)
[2016-11-24] MEDS: PIPER-TAZO 2.25 GM (PMX) 50 ML IVPB SCH (05:46)
[2016-11-24] MEDS: DEXTROSE 5%-0.45% NACL 1,000 ML IV SCH ×3 (06:04→22:21)
[2016-11-24 07:51] LABS: AADO2 Arterial 76.1 mmHg (7.0-24.0); Allen Test ACCEPTAB; Arterial Base Excess 2.8 mmol/L (-3.0-3); Arterial COHb 0.3 % (0.0-3.0); Arterial Fraction of Oxyhgb 96.5 % (93.0-99.0); Arterial HCO3 26.1 mmol/L (22.0-26.0); Arterial MetHb 0.2 % (0.0-1.5); Arterial Total Hemglobin 10.5 g/dl (12.0-18.0); MODE VENT - AC
[2016-11-24] MEDS: ASPIRIN (EC) 81 MG TAB PO SCH (08:33)
[2016-11-24] MEDS: FAMOTIDINE 20 MG INJ IV SCH (08:33)
[2016-11-24] MEDS: AMIODARONE 200 MG TAB GTB SCH (09:52)
--- NOTE | 2016-11-24 09:56 | CONS ---
Date/Time of Note Date/Time of Note DATE: 11/24/16 TIME: 09:52 Assessment/Plan Assessment/Plan Additional Assessment/Plan Chest x-ray was reviewed from yesterday which is showing left lower lobe infiltrate. Cardio megaly is present. Endotracheal tube is at an adequate level. Next Ventilator setting; AC of 20, tidal volume 500, PEEP of 7, 30% FiO2. Patient currently on propofol drip at 25 mics per kilogram per minute. Fentanyl drip 25 mics per hour. Assessment recommendations; 1. Patient admitted for STEMI status post cardiac arrest. 2. Likely aspiration pneumonia involving left lower lobe. 3. Renal insufficiency, with significantly improved serum creatinine. 4. Bilateral toe gangrene, patient currently off pressor support however was on high-dose pressor support initially causing extremity hypoperfusion. 5. Status post coronary intervention with stenting of circumflex lesion. 6. Persistent mild pulmonary edema. For sedation for now. Once the patient is off sedation he will be evaluated for possible weaning from ventilator. Meanwhile continue current antibiotics other supportive measures. 35 minutes of critical care time was spent EE evaluating patient. Consultation Date/Type/Reason Admit Date/Time Nov 19, 2016 at 16:09 Type of Consultation: Pulmonary/critical care Referring Provider: PIO VEGA 24 HR Interval Summary Free Text/Dictation Patient condition remains critical. Has remained hemodynamically stable. Not requiring any further pressor support. Patient also off intra-aortic balloon pump. General exam; middle-aged male, orally intubated, sedated. Currently in no distress. Exam/Review of Systems Vital Signs Vitals Vital Signs Date Time Temp Pulse Resp B/P Pulse Ox O2 Delivery O2 Flow Rate FiO2 11/24/16 06:00 56 20 101/61 98 11/24/16 05:20 30 11/24/16 04:00 98.4 11/23/16 20:00 Mechanical Ventilator Intake and Output 11/23/16 11/23/16 11/24/16 15:00 23:00 07:00 Intake Total 891.868 ml 1047.363 ml 932.8 ml Output Total 625 ml 335 ml 640 ml Balance 266.868 ml 712.363 ml 292.8 ml Exam HEENT exam is; supple neck, positive JVD. No lymphadenopathy. Midline trachea. No thyromegaly Patient is edentulous. Pupils are equal bilaterally. Reactive to light. Patient is orally intubated. Chest examined; diminished breath sounds bilaterally. S1-S2 audible, no murmurs. Regular rhythm. Abdomen examination; soft, no organomegaly. Bowel sounds audible. Extremity exam is; no peripheral edema. Dorsalis pedis pulses 2+ bilaterally. Patient has bilateral toe gangrene. [employer] examination; patient is sedated. Results Result Diagram: 11/24/16 0430 11/24/16 0430 Results 24 hrs Laboratory Tests Test 11/23/16 13:06 11/23/16 17:30 11/23/16 23:57 11/24/16 04:30 Bedside Glucose 182 142 137 White Blood Count 10.0 Red Blood Count 3.02 L Hemoglobin 9.3 L Hematocrit 29.2 L Mean Corpuscular Volume 96.7 Mean Corpuscular Hemoglobin 30.8 Mean Corpuscular Hemoglobin Concent 31.8 L Red Cell Distribution Width 14.0 Platelet Count 169 Mean Platelet Volume 10.8 H Neutrophils % 74.2 Lymphocytes % 9.5 L Monocytes % 9.8 Eosinophils % 5.0 Basophils % 0.3 Nucleated Red Blood Cells % 0.0 Neutrophils # 7.5 Lymphocytes # 1.0 Monocytes # 1.0 H Eosinophils # 0.5 Basophils # 0.0 Nucleated Red Blood Cells # 0.0 Sodium Level 144 Potassium Level 3.6 Chloride Level 111 H Carbon Dioxide Level 28 Anion Gap 9 Blood Urea Nitrogen 40 H Creatinine 2.08 H Glucose Level 164 Calcium Level 8.6 Magnesium Level 2.2 Total Bilirubin 1.3 Direct Bilirubin 0.80 #H Indirect Bilirubin 0.5 Aspartate Amino Transf (AST/SGOT) 98 H Alanine Aminotransferase (ALT/SGPT) 907 H Alkaline Phosphatase 101 B-Type Natriuretic Peptide 5940 H Total Protein 5.6 L Albumin 2.7 L Globulin 2.90 Albumin/Globulin Ratio 0.93 Test 11/24/16 05:51 11/24/16 07:00 11/24/16 08:29 Bedside Glucose 201 174 Blood Gas Specimen Source Blood arterial Arterial Blood Date Drawn 11/24/2016 7:16:50 AM Arterial Blood pH (Temp corrected) 7.486 H Arterial Blood pCO2 (Temp correct) 35.4 Arterial Blood pO2 (Temp corrected) 96.2 Arterial Blood HCO3 26.1 H Arterial Blood Base Excess 2.8 Arterial Blood Oxygen Saturation 97.0 Keron Test ACCEPTAB Arterial Blood Gas Puncture Site Right Radial Arterial Blood Carboxyhemoglobin 0.3 Arterial Blood Methemoglobin 0.2 Blood Gas A-a O2 Differential 76.1 H Oxyhemoglobin Percent 96.5 Total Hemoglobin 10.5 L Blood Gas Temperature 37.0 Blood Gas Respiration Rate 20.0 Blood Gas Actual Respiration Rate 20 Blood Gas Modality VENT - AC FiO2 30.0 Blood Gas Tidal Volume 500.0 Blood Gas High PEEP Setting 7.0 Blood Gas Notified Whom TM Blood Gas Notified Time 11/24/2016 7:31:36 AM Medications Medications Current Medications Aspirin (Halfprin) 81 mg DAILY PO Last administered on 11/24/16 08:33; Admin Dose 81 MG; Start 11/20/16 at 09:00 Ticagrelor 90 mg 90 mg BID PO Last administered on 11/24/16 08:37; Admin Dose 90 MG; Start 11/19/16 at 21:00 Propofol 100 ml @ 3.818 mls/ hr Q12H IV Last administered on 11/24/16 07:29; Admin Dose 22.909 MLS/HR; Start 11/19/16 at 16:30 Fentanyl (Sublimaze) 100 ml @ 2.5 mls/hr TITRATE IV Last administered on 12:51; Admin Dose 2.5 MLS/HR; Start 11/19/16 at 17:00 Ondansetron HCl (Zofran Inj) 4 mg Q6H PRN IV NAUSEA AND/OR VOMITING; Start 04/27 at 17:00 Acetaminophen (Tylenol Liquid) 650 mg Q6H PRN PO PAIN LEVEL 1-3 OR FEVER; Start 11/19/16 at 17:00 Acetaminophen (Tylenol Supp) 650 mg Q4H PRN OR PAIN LEVEL 1-3 OR FEVER; Start 11/19/16 at 17:00 Docusate Sodium (Colace) 100 mg Q12H PRN PO CONSTIPATION; Start 11/19/16 at 17: 00 Magnesium Hydroxide (Milk Of Mag) 30 ml DAILY PRN PO CONSTIPATION; Start at 17:00 Bisacodyl (Dulcolax Supp) 10 mg DAILY PRN OR CONSTIPATION; Start 11/19/16 at 17 :00 Famotidine (Pepcid Iv) 20 mg DAILY IV Last administered on 11/24/16 08:33; Admin Dose 20 MG; Start 11/19/16 at 17:00 Insulin Aspart (Novolog Insulin Pen) NOVOLOG *MODERATE* ALGORI... Q4 SC Last administered on 11/24/16 08:37; Admin Dose 2 UNIT; Start 11/19/16 at 17:30 Miscellaneous Information 1 ea NOTE XX ; Start 11/19/16 at 17:30 Glucose (Glutose) 15 gm Q15M PRN PO DECREASED GLUCOSE; Start 11/19/16 at 17:30 Glucose (Glutose) 22.5 gm Q15M PRN PO DECREASED GLUCOSE; Start 11/19/16 at 17: 30 Dextrose (D50w Syringe) 25 ml Q15M PRN IV DECREASED GLUCOSE; Start 11/19/16 at 17:30 Dextrose (D50w Syringe) 50 ml Q15M PRN IV DECREASED GLUCOSE; Start 11/19/16 at 17:30 Glucagon (Glucagen) 1 mg Q15M PRN IM DECREASED GLUCOSE; Start 11/19/16 at 17:30 Glucose 15 gm 15 gm Q15M PRN BUCCAL DECREASED GLUCOSE; Start 11/19/16 at 17:30 Norepinephrine 16 mg/Dextrose 500 ml @ 1.875 mls/ hr TITRATE IV Last administered on 11/22/16 01:11; Admin Dose 7.5 MLS/HR; Start 11/20/16 at 19:30 Dextrose/Sodium Chloride 1,000 ml @ 75 mls/hr [id number] IV Last administered on 11/24/16 06:04; Admin Dose 75 MLS/HR; Start 11/21/16 at 21:00 Piperacillin Sod/ Tazobactam Sod (Zosyn 2.25gm/ 50ml (Pmx)) 50 ml @ 100 mls/hr Q6 IVPB Last administered on 11/24/16 05:46; Admin Dose 100 MLS/HR; Start at 08:25 Amiodarone HCl (Cordarone) 200 mg DAILY GTB Last administered on 11/23/16 08: 25; Admin Dose 200 MG; Start 11/23/16 at 09:00 ELEONORA LEWIS 16, 2017 09:56
--- NOTE | 2016-11-24 10:06 | PN ---
Date/Time of Note Date/Time of Note DATE: 11/24/16 TIME: 10:05 Assessment/Plan VTE Prophylaxis VTE Prophylaxis Intervention: SCD's Lines/Catheters IV Catheter Type (from Nrsg): Central Line Central line still needed: Yes (for IV access) Urinary Cath still in place: Yes Reason Cath still needed: other (indicate) (NEHA, monitor UOP ) Assessment/Plan Assessment/Plan 56-year-old male with: 1. ST elevation myocardial infarction with a hemodynamic instability, status post ventricular tachycardia, cardioverted status post angiogram with PCI to the circumflex, OFF balloon pump, hemodynamically stable but not ready to extubate, patient very restless, back on sedation. Off Levo x 2days and on Fentanyl and Propofol for sedation Dr. Simeon following, on Brilinta and ASA. On po Amio Pulmonary critical care following 2. Acute respiratory failure secondary to cardiogenic shock and ST elevation myocardial infarction. Also with history of chronic obstructive pulmonary disease Intubated and sedated on Fentanyl and Propofol, nor ready for extubation, restless but not following commands. CXR with CHF exacerbation, will start diuresis when more stable and OK with cardiology and Nephrology. On Zosyn with Klebsiella and MSSA on sputum cx Pulmonary for Vent management. On tube feedings 3. Acute kidney injury on probable chronic kidney disease, likely secondary to acute tubular necrosis in this situation. Renal function improving slowly. Repleting K prn On IVF now. UOP OK Renal US mostly unremarkable Nephrology, Dr Welch following. 4. Acute ischemic changes b/l toes, now seems better perfused but likely embolic events with angio. Pulses present 5. Shock Liver, with elevated LFTs and coagulopathy currently. Monitoring, improving. Avoid hepatotoxic agents 6. Coagulopathy, 2ry to shock liver likely. Monitor, patient did get Vit Kx1. Resolving 7. Diabetes mellitus. His blood sugars are fairly stable. A1c 7.1 Continue sliding scale insulin. Now that on TF will start Lantus 8. Thrush: starting Nystatin and Diflucan 9. Obstructive sleep apnea on CPAP at night as outpatient. 10. Tobacco use. Hopefully the patient will quit after this. Nicotine patch today. Prophylaxis. Pepcid for GI ppx and SCDs. DISPOSITION: Guarded prognosis still and patient remains critical. Off balloon pump and pressors for now. Not ready to extubate. Subjective 24 Hr Interval Summary Free Text/Dictation Patient still agitated and not following commands when off sedation so, no extubation planned yet, back on Sedation On abx for ? PNA vs tracheobronchitis and on Diflucan for thrush Renal function better OFF pressors and currently on IVF and sedation with Propofol and Fentanyl Exam/Review of Systems Vital Signs Vitals Vital Signs Date Time Temp Pulse Resp B/P Pulse Ox O2 Delivery O2 Flow Rate FiO2 11/24/16 06:00 56 20 101/61 98 11/24/16 05:20 30 11/24/16 04:00 98.4 11/23/16 20:00 Mechanical Ventilator Intake and Output 11/23/16 11/23/16 11/24/16 15:00 23:00 07:00 Intake Total 891.868 ml 1047.363 ml 932.8 ml Output Total 625 ml 335 ml 640 ml Balance 266.868 ml 712.363 ml 292.8 ml Exam Constitutional: other (back on sedation and intubated ) Respiratory: diminished breath sounds (bilaterally ), other (on Vent ) Cardiovascular: nl pulses, regular rate and rhythm Gastrointestinal: non-tender, other (TF on going and tolerated so far ), soft Musculoskeletal: other (toe ischemia improving a lot, warm ) Extremities: normal pulses, other (no edema, clubbing or cyanosis ) Neurological: lethargic, other (sedated and intubated ) Results Result Diagram: 11/24/16 0430 11/24/16 0430 Results 24 hrs Laboratory Tests Test 11/23/16 13:06 11/23/16 17:30 11/23/16 23:57 11/24/16 04:30 Bedside Glucose 182 142 137 White Blood Count 10.0 Red Blood Count 3.02 L Hemoglobin 9.3 L Hematocrit 29.2 L Mean Corpuscular Volume 96.7 Mean Corpuscular Hemoglobin 30.8 Mean Corpuscular Hemoglobin Concent 31.8 L Red Cell Distribution Width 14.0 Platelet Count 169 Mean Platelet Volume 10.8 H Neutrophils % 74.2 Lymphocytes % 9.5 L Monocytes % 9.8 Eosinophils % 5.0 Basophils % 0.3 Nucleated Red Blood Cells % 0.0 Neutrophils # 7.5 Lymphocytes # 1.0 Monocytes # 1.0 H Eosinophils # 0.5 Basophils # 0.0 Nucleated Red Blood Cells # 0.0 Sodium Level 144 Potassium Level 3.6 Chloride Level 111 H Carbon Dioxide Level 28 Anion Gap 9 Blood Urea Nitrogen 40 H Creatinine 2.08 H Glucose Level 164 Calcium Level 8.6 Magnesium Level 2.2 Total Bilirubin 1.3 Direct Bilirubin 0.80 #H Indirect Bilirubin 0.5 Aspartate Amino Transf (AST/SGOT) 98 H Alanine Aminotransferase (ALT/SGPT) 907 H Alkaline Phosphatase 101 B-Type Natriuretic Peptide 5940 H Total Protein 5.6 L Albumin 2.7 L Globulin 2.90 Albumin/Globulin Ratio 0.93 Test 11/24/16 05:51 11/24/16 07:00 11/24/16 08:29 Bedside Glucose 201 174 Blood Gas Specimen Source Blood arterial Arterial Blood Date Drawn 11/24/2016 7:16:50 AM Arterial Blood pH (Temp corrected) 7.486 H Arterial Blood pCO2 (Temp correct) 35.4 Arterial Blood pO2 (Temp corrected) 96.2 Arterial Blood HCO3 26.1 H Arterial Blood Base Excess 2.8 Arterial Blood Oxygen Saturation 97.0 Keron Test ACCEPTAB Arterial Blood Gas Puncture Site Right Radial Arterial Blood Carboxyhemoglobin 0.3 Arterial Blood Methemoglobin 0.2 Blood Gas A-a O2 Differential 76.1 H Oxyhemoglobin Percent 96.5 Total Hemoglobin 10.5 L Blood Gas Temperature 37.0 Blood Gas Respiration Rate 20.0 Blood Gas Actual Respiration Rate 20 Blood Gas Modality VENT - AC FiO2 30.0 Blood Gas Tidal Volume 500.0 Blood Gas High PEEP Setting 7.0 Blood Gas Notified Whom TM Blood Gas Notified Time 11/24/2016 7:31:36 AM Medications Medications Current Medications Aspirin (Halfprin) 81 mg DAILY PO Last administered on 11/24/16 08:33; Admin Dose 81 MG; Start 11/20/16 at 09:00 Ticagrelor 90 mg 90 mg BID PO Last administered on 11/24/16 08:37; Admin Dose 90 MG; Start 11/19/16 at 21:00 Propofol 100 ml @ 3.818 mls/ hr Q12H IV Last administered on 11/24/16 07:29; Admin Dose 22.909 MLS/HR; Start 11/19/16 at 16:30 Fentanyl (Sublimaze) 100 ml @ 2.5 mls/hr TITRATE IV Last administered on 6/15/ 17at 12:51; Admin Dose 2.5 MLS/HR; Start 11/19/16 at 17:00 Ondansetron HCl (Zofran Inj) 4 mg Q6H PRN IV NAUSEA AND/OR VOMITING; Start 04/27 at 17:00 Acetaminophen (Tylenol Liquid) 650 mg Q6H PRN PO PAIN LEVEL 1-3 OR FEVER; Start 11/19/16 at 17:00 Acetaminophen (Tylenol Supp) 650 mg Q4H PRN RI PAIN LEVEL 1-3 OR FEVER; Start 11/19/16 at 17:00 Docusate Sodium (Colace) 100 mg Q12H PRN PO CONSTIPATION; Start 11/19/16 at 17: 00 Magnesium Hydroxide (Milk Of Mag) 30 ml DAILY PRN PO CONSTIPATION; Start at 17:00 Bisacodyl (Dulcolax Supp) 10 mg DAILY PRN RI CONSTIPATION; Start 11/19/16 at 17 :00 Famotidine (Pepcid Iv) 20 mg DAILY IV Last administered on 11/24/16 08:33; Admin Dose 20 MG; Start 11/19/16 at 17:00 Insulin Aspart (Novolog Insulin Pen) NOVOLOG *MODERATE* ALGORI... Q4 SC Last administered on 11/24/16 08:37; Admin Dose 2 UNIT; Start 11/19/16 at 17:30 Miscellaneous Information 1 ea NOTE XX ; Start 11/19/16 at 17:30 Glucose (Glutose) 15 gm Q15M PRN PO DECREASED GLUCOSE; Start 11/19/16 at 17:30 Glucose (Glutose) 22.5 gm Q15M PRN PO DECREASED GLUCOSE; Start 11/19/16 at 17: 30 Dextrose (D50w Syringe) 25 ml Q15M PRN IV DECREASED GLUCOSE; Start 11/19/16 at 17:30 Dextrose (D50w Syringe) 50 ml Q15M PRN IV DECREASED GLUCOSE; Start 11/19/16 at 17:30 Glucagon (Glucagen) 1 mg Q15M PRN IM DECREASED GLUCOSE; Start 11/19/16 at 17:30 Glucose 15 gm 15 gm Q15M PRN BUCCAL DECREASED GLUCOSE; Start 11/19/16 at 17:30 Norepinephrine 16 mg/Dextrose 500 ml @ 1.875 mls/ hr TITRATE IV Last administered on 11/22/16 01:11; Admin Dose 7.5 MLS/HR; Start 11/20/16 at 19:30 Dextrose/Sodium Chloride 1,000 ml @ 75 mls/hr [id number] IV Last administered on 11/24/16 06:04; Admin Dose 75 MLS/HR; Start 11/21/16 at 21:00 Piperacillin Sod/ Tazobactam Sod (Zosyn 2.25gm/ 50ml (Pmx)) 50 ml @ 100 mls/hr Q6 IVPB Last administered on 11/24/16 05:46; Admin Dose 100 MLS/HR; Start at 08:25 Amiodarone HCl (Cordarone) 200 mg DAILY GTB Last administered on 11/24/16 09: 52; Admin Dose 200 MG; Start 11/23/16 at 09:00 PIO VEGA Nov 24, 2016 10:05
--- NOTE | 2016-11-24 10:07 | RADRPT ---
PROCEDURE: XR Chest 1 view. CLINICAL INDICATION: Shortness of breath TECHNIQUE: AP views of the chest was obtained. COMPARISON: Yesterday FINDINGS: The heart is large. Calcified atherosclerosis is noted in the aorta. Endotracheal and nasogastric t ubes are stable and appear in grossly appropriate location. Right-sided central line is unchanged. Central pulmonary vascular congestion and interstitial prominence is seen in both lungs. Retrocard iac opacity stable. Patchy right lower lobe infiltrates are unchanged. The osseous structures are unchanged. IMPRESSION: Cardiomegaly with calcified atherosclerosis in the aorta. Stable central pulmonary vascular congestion and interstitial prominence in both lungs. Retrocardiac opacity that may reflect left lower lobe atelectasis or infiltrate combined with small pleural effusion. Stable patchy right lower lobe infiltrates. RPTAT: AA .William Beckwith MD, Date Time Electronically viewed and signed by .William Beckwith MD, on 11/24/2016 10:07 .P/
[2016-11-24] MEDS ORDERED: FLUCONAZOLE 200 MG TAB NGT ONE (11:00)
[2016-11-24] MEDS: PIPER-TAZO 3.375 GM IV (PMX) 100 ML IVPB SCH ×2 (11:37→17:10)
[2016-11-24] MEDS: NYSTATIN SUSP 5 ML CUP PO SCH ×4 (11:37→20:47)
--- NOTE | 2016-11-24 15:23 | PN ---
DATE: 11/24/2016 CARDIOLOGY FOLLOWUP SUBJECTIVE: Discussed with the staff. The patient remains in sinus rhythm. No more episodes of at rial fibrillation. Heart rate remains stable on amiodarone. He is still intubated on the vent, catrachita ble to be weaned off. No neurologic event. There is much improvement. According to the nurses dur ing sedation vacation, he has not been responding. Has been agitated. MEDICATIONS: Reviewed as per medication reconciliation, was personally reviewed. PHYSICAL EXAMINATION: VITAL SIGNS: Temperature 98.8, heart rate of 62, blood pressure 106/66, respiratory rate of 23. HEENT: Normocephalic, atraumatic, status post intubation on the vent. Eyes are closed. CARDIOVASCULAR: Regular rate and rhythm. PULMONARY: With mild rhonchi diffuse. GASTROINTESTINAL: Soft, nontender, obese. EXTREMITIES: With positive lower extremity edema. NEUROLOGIC: Nonresponsive currently sedated. LABORATORY: WBC of 10, hemoglobin 9.3, platelets of 169. Sodium 144, potassium 3.6, BUN of 40, cre atinine 2.08, glucose 164. ALT of 97. AST of 98. Chest x-ray shows cardiomegaly. Atherosclerosis in the aorta. Stable central pulmonary vascular congestion, retrocardiac opacity. ASSESSMENT AND PLAN: 1. Status post ventricular tachycardia arrest/cardiopulmonary arrest. 2. ST elevation myocardial infarction, status post percutaneous coronary intervention. 3. Severe respiratory failure. 4. Severe encephalopathy. 5. Respiratory failure, status post intubation unable to wean off. Status post shock, currently im proved. 6. Pneumonia. 7. Renal failure, probably acute on chronic. Currently actually slowly improving. 8. Acute ischemic changes in the toes bilaterally, probably related to hypertension and shock on pr essors upon presentation. 9. Shock liver, elevated liver function tests slowly improving. 10. Coagulopathy with elevated INR has improved now. 11. Status post vitamin K. RECOMMENDATIONS: We will continue the ICU care and vent support. Antibiotics will be continued and adjusted as per internal medicine. Consider neurological consultation as well. Aspirin and Brilin ta will be continued. For now, I will start the patient on statin and monitor the liver enzymes as well. Continue the ICU care. More than 36 minutes of critical care time was spent managing this patient excluding any procedures. Dictated By: SERENA CENTENO/JUANY Conf#: [id number] [facility]#: [id number]
[2016-11-24] MEDS: FENTAnyl (DRIP) 1000 mcg/100mL 100 ML IV SCH (15:25)
--- NOTE | 2016-11-24 18:14 | CONS ---
Date/Time of Note Date/Time of Note DATE: 11/24/16 TIME: 18:02 Assessment/Plan Assessment/Plan Additional Assessment/Plan 1. Acute kidney injury on possible previous chronic kidney disease with last creatinine known about 1.48 secondary to acute tubular necrosis from ischemic acute tubular necrosis from cardiogenic shock. 2. Acute respiratory failure from cardiogenic shock, currently intubated on ventilator- failed weaning trial today 3. Acute non-ST elevation myocardial infarction, S/p IABP , now off, . 4. History of possible chronic kidney disease secondary to diabetic nephropathy , unknown stage. 5. History of type 2 diabetes mellitus. 6. History of hypertension. Plan: remains intubated, ventilator care as per pulmonary BUN/Cr improving, good urine ouptut, 1.7 liter, expecting renal function to improve continue IVF D51/2 NS at 75 cc/hr on Brilinat Post cath will continue to follow up on patient Consultation Date/Type/Reason Admit Date/Time Nov 19, 2016 at 16:09 Initial Consult Date Nov Type of Consultation: NEPHROLOGY Referring Provider: PIO VEGA 24 HR Interval Summary Free Text/Dictation pt remains intubated, in Sinus rthythm, not in atrila fibrillaiton , on ventilator, Exam/Review of Systems Vital Signs Vitals Vital Signs Date Time Temp Pulse Resp B/P Pulse Ox O2 Delivery O2 Flow Rate FiO2 11/24/16 16:00 54 11/24/16 15:15 23 100 30 11/24/16 13:00 106/62 Mechanical Ventilator 11/24/16 12:00 98.9 Intake and Output 11/23/16 11/23/16 11/24/16 15:00 23:00 07:00 Intake Total 891.868 ml 1047.363 ml 1048.2 ml Output Total 625 ml 335 ml 720 ml Balance 266.868 ml 712.363 ml 328.2 ml Exam GENERAL: no acute distress NECK: supple + Et tube LUNGS: Bilateral coarse breath sounds HEART: S1, S2, tachycardia, no murmur. ABDOMEN: Soft, morbidly obese. EXTREMITIES: 1 to 2+ pitting edema. No clubbing, cyanosis. NEUROLOGICAL: Uncooperative for exam PSYCHIATRIC: Not able to assess at this point. Results Result Diagram: 11/24/16 0430 11/24/16 0430 Results 24 hrs Laboratory Tests Test 11/23/16 23:57 11/24/16 04:30 11/24/16 05:51 11/24/16 07:00 Bedside Glucose 137 201 White Blood Count 10.0 Red Blood Count 3.02 L Hemoglobin 9.3 L Hematocrit 29.2 L Mean Corpuscular Volume 96.7 Mean Corpuscular Hemoglobin 30.8 Mean Corpuscular Hemoglobin Concent 31.8 L Red Cell Distribution Width 14.0 Platelet Count 169 Mean Platelet Volume 10.8 H Neutrophils % 74.2 Lymphocytes % 9.5 L Monocytes % 9.8 Eosinophils % 5.0 Basophils % 0.3 Nucleated Red Blood Cells % 0.0 Neutrophils # 7.5 Lymphocytes # 1.0 Monocytes # 1.0 H Eosinophils # 0.5 Basophils # 0.0 Nucleated Red Blood Cells # 0.0 Sodium Level 144 Potassium Level 3.6 Chloride Level 111 H Carbon Dioxide Level 28 Anion Gap 9 Blood Urea Nitrogen 40 H Creatinine 2.08 H Glucose Level 164 Calcium Level 8.6 Magnesium Level 2.2 Total Bilirubin 1.3 Direct Bilirubin 0.80 #H Indirect Bilirubin 0.5 Aspartate Amino Transf (AST/SGOT) 98 H Alanine Aminotransferase (ALT/SGPT) 907 H Alkaline Phosphatase 101 B-Type Natriuretic Peptide 5940 H Total Protein 5.6 L Albumin 2.7 L Globulin 2.90 Albumin/Globulin Ratio 0.93 Blood Gas Specimen Source Blood arterial Arterial Blood Date Drawn 11/24/2016 7:16:50 AM Arterial Blood pH (Temp corrected) 7.486 H Arterial Blood pCO2 (Temp correct) 35.4 Arterial Blood pO2 (Temp corrected) 96.2 Arterial Blood HCO3 26.1 H Arterial Blood Base Excess 2.8 Arterial Blood Oxygen Saturation 97.0 Keron Test ACCEPTAB Arterial Blood Gas Puncture Site Right Radial Arterial Blood Carboxyhemoglobin 0.3 Arterial Blood Methemoglobin 0.2 Blood Gas A-a O2 Differential 76.1 H Oxyhemoglobin Percent 96.5 Total Hemoglobin 10.5 L Blood Gas Temperature 37.0 Blood Gas Respiration Rate 20.0 Blood Gas Actual Respiration Rate 20 Blood Gas Modality VENT - AC FiO2 30.0 Blood Gas Tidal Volume 500.0 Blood Gas High PEEP Setting 7.0 Blood Gas Notified Whom TM Blood Gas Notified Time 11/24/2016 7:31:36 AM Test 11/24/16 08:29 11/24/16 12:10 11/24/16 12:44 11/24/16 17:10 Bedside Glucose 174 136 166 Lab Scanned Report REFERENCE LAB Medications Medications Current Medications Aspirin (Halfprin) 81 mg DAILY PO Last administered on 11/24/16 08:33; Admin Dose 81 MG; Start 11/20/16 at 09:00 Ticagrelor 90 mg 90 mg BID PO Last administered on 11/24/16 08:37; Admin Dose 90 MG; Start 11/19/16 at 21:00 Propofol 100 ml @ 3.818 mls/ hr Q12H IV Last administered on 11/24/16 17:10; Admin Dose 19.091 MLS/HR; Start 11/19/16 at 16:30 Fentanyl (Sublimaze) 100 ml @ 2.5 mls/hr TITRATE IV Last administered on 15:25; Admin Dose 5 MLS/HR; Start 11/19/16 at 17:00 Ondansetron HCl (Zofran Inj) 4 mg Q6H PRN IV NAUSEA AND/OR VOMITING; Start 04/27 at 17:00 Acetaminophen (Tylenol Liquid) 650 mg Q6H PRN PO PAIN LEVEL 1-3 OR FEVER; Start 11/19/16 at 17:00 Acetaminophen (Tylenol Supp) 650 mg Q4H PRN [place] PAIN LEVEL 1-3 OR FEVER; Start 11/19/16 at 17:00 Docusate Sodium (Colace) 100 mg Q12H PRN PO CONSTIPATION; Start 11/19/16 at 17: 00 Magnesium Hydroxide (Milk Of Mag) 30 ml DAILY PRN PO CONSTIPATION; Start at 17:00 Bisacodyl (Dulcolax Supp) 10 mg DAILY PRN [place] CONSTIPATION; Start 11/19/16 at 17 :00 Famotidine (Pepcid Iv) 20 mg DAILY IV Last administered on 11/24/16 08:33; Admin Dose 20 MG; Start 11/19/16 at 17:00 Insulin Aspart (Novolog Insulin Pen) NOVOLOG *MODERATE* ALGORI... Q4 SC Last administered on 11/24/16 08:37; Admin Dose 2 UNIT; Start 11/19/16 at 17:30 Miscellaneous Information 1 ea NOTE XX ; Start 11/19/16 at 17:30 Glucose (Glutose) 15 gm Q15M PRN PO DECREASED GLUCOSE; Start 11/19/16 at 17:30 Glucose (Glutose) 22.5 gm Q15M PRN PO DECREASED GLUCOSE; Start 11/19/16 at 17: 30 Dextrose (D50w Syringe) 25 ml Q15M PRN IV DECREASED GLUCOSE; Start 11/19/16 at 17:30 Dextrose (D50w Syringe) 50 ml Q15M PRN IV DECREASED GLUCOSE; Start 11/19/16 at 17:30 Glucagon (Glucagen) 1 mg Q15M PRN IM DECREASED GLUCOSE; Start 11/19/16 at 17:30 Glucose 15 gm 15 gm Q15M PRN BUCCAL DECREASED GLUCOSE; Start 11/19/16 at 17:30 Norepinephrine 16 mg/Dextrose 500 ml @ 1.875 mls/ hr TITRATE IV Last administered on 11/22/16 01:11; Admin Dose 7.5 MLS/HR; Start 11/20/16 at 19:30 Dextrose/Sodium Chloride (D5-1/2ns) 1,000 ml @ 75 mls/hr [id number] IV Last administered on 11/24/16 15:40; Admin Dose 75 MLS/HR; Start 11/21/16 at 21:00 Amiodarone HCl (Cordarone) 200 mg DAILY GTB Last administered on 11/24/16 09: 52; Admin Dose 200 MG; Start 11/23/16 at 09:00 Nystatin (Nystatin Susp) 5 ml QID PO Last administered on 11/24/16 17:10; Admin Dose 5 ML; Start 11/24/16 at 10:30 Fluconazole (Diflucan) 100 mg DAILY NGT ; Start 11/25/16 at 09:00 Insulin Glargine 18 unit 18 unit DAILY@20 SC ; Start 11/24/16 at 20:00 Piperacillin Sod/ Tazobactam Sod (Zosyn 3.375gm/ 100 ml (Pmx)) 100 ml @ 100 mls /hr Q6 IVPB Last administered on 11/24/16 17:10; Admin Dose 100 MLS/HR; Start 11/24/16 at 12:00 Atorvastatin Calcium (Lipitor) 10 mg HS NGT ; Start 11/24/16 at 21:00 FÁTIMA PERES MD Nov 24, 2016 18:12
[2016-11-24] MEDS: INSULIN GLARGINE [LANtus] 3 ML PEN SC SCH (20:44)
[2016-11-24] MEDS: ATORVASTATIN 10 MG TAB NGT SCH (20:48)
[2016-11-25] VITALS (41 sets, daily range): BP systolic 91–117; BP diastolic 52–71; PULSE 53–85; RESP 13–28
[2016-11-25] MEDS: PIPER-TAZO 3.375 GM IV (PMX) 100 ML IVPB SCH ×5 (00:43→23:41)
[2016-11-25] MEDS: INSULIN ASPART [NOVOLOG] 3 ML PEN SC SCH ×6 (00:48→20:34)
[2016-11-25] MEDS: PROPOFOL 100 ML IV SCH ×6 (01:18→20:25)
[2016-11-25] MEDS: DEXTROSE 5%-0.45% NACL 1,000 ML IV SCH ×2 (05:00→15:33)
[2016-11-25 05:09] LABS: ADD SCAN DIFF NO
[2016-11-25 05:32] LABS: ALBUMIN 2.6 g/dl (3.3-4.9); ALBUMIN/GLOBULIN RATIO 1.04; BILIRUBIN,DIRECT 0.2 mg/dl (0.00-0.20); BILIRUBIN,INDIRECT 0.4 mg/dl (0-1.1); BILIRUBIN,TOTAL 0.6 mg/dl (0.2-1.3); CALCIUM 8.4 mg/dl (8.4-10.2); CREATININE 1.89 mg/dl (0.61-1.24); POTASSIUM 3.9 mmol/L (3.5-5.1); TOTAL PROTEIN 5.1 g/dl (6.1-8.1)
[2016-11-25 05:55] LABS: BASOPHILS % 0.3 % (0.0-2.0); EOSINOPHILS # 0.6 10^3/ul (0.0-0.5); EOSINOPHILS % 6.3 % (0.0-7.0); HEMATOCRIT 30.1 % (42.0-52.0); HEMOGLOBIN 9.4 g/dl (14.0-18.0); LYMPHOCYTES % 11.2 % (15.0-51.0); MEAN CORPUSCULAR HEMOGLOBIN 30.1 pg (29.0-33.0); MEAN CORPUSCULAR HGB CONC 31.2 g/dl (32.0-37.0); MEAN CORPUSCULAR VOLUME 96.5 fl (82.0-101.0); MEAN PLATELET VOLUME 11.2 fl (7.4-10.4); MONOCYTE # 0.8 10^3/ul (0.3-0.9); MONOCYTES % 9.2 % (0.0-11.0); NEUTROPHIL # 6.4 10^3/ul (1.6-7.5); NEUTROPHILS % 71.1 % (39.0-77.0); PLATELET COUNT 165 10^3/UL (140-415); RED BLOOD COUNT 3.12 10^6/ul (4.70-6.10); RED CELL DISTRIBUTION WIDTH 14.2 % (11.5-14.5)
[2016-11-25 05:57] LABS: MAGNESIUM 2.3 mg/dl (1.7-2.5); PHOSPHORUS 3.7 mg/dl (2.5-4.9)
--- NOTE | 2016-11-25 07:50 | CONS ---
Date/Time of Note Date/Time of Note DATE: 11/25/16 TIME: 07:47 Assessment/Plan Assessment/Plan Additional Assessment/Plan Ventilator setting; AC of 20, tidal volume 500, PEEP of 7, 30% FiO2. Patient currently on fentanyl drip at 50 mics per hour, propofol 35 mics per kilogram per minute. Assessment recommendations; 1. Patient admitted with cardiac arrest status post coronary intervention with stenting of circumflex lesion. 2. CHF. 3. Left lower lobe pneumonia. 4. Renal insufficiency, with improving serum creatinine. 5. 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 6. Underlying obesity. For sedation. Once the patient is off sedation he will be evaluated for possible weaning from ventilator. Consultation Date/Type/Reason Admit Date/Time Nov 19, 2016 at 16:09 Type of Consultation: Pulmonary/critical care Referring Provider: PIO VEGA 24 HR Interval Summary Free Text/Dictation Patient condition remains critical. Patient however has remained hemodynamically stable. No untoward events reported. General exam; middle-aged male, morbidly obese, currently in no distress. Sedated. Exam/Review of Systems Vital Signs Vitals Vital Signs Date Time Temp Pulse Resp B/P Pulse Ox O2 Delivery O2 Flow Rate FiO2 11/25/16 07:00 56 21 101/60 98 Mechanical Ventilator 11/25/16 05:10 30 11/25/16 04:00 99.0 Intake and Output 11/24/16 11/24/16 11/25/16 15:00 23:00 07:00 Intake Total 1342.409 ml 1233.227 ml 800.181 ml Output Total 640 ml 505 ml 485 ml Balance 702.409 ml 728.227 ml 315.181 ml Exam HEENT exam is; supple neck, positive JVD. No lymphadenopathy. Midline trachea. No thyromegaly. Patient is orally intubated. Pupils are small bilaterally. Patient is edentulous. Neck Chest examination; diminished but clear vessel. S1-S2 audible, no murmurs. Regular rhythm. Abdomen examination; soft, protuberant. Bowel sounds audible. No organomegaly. Extremity examination; no peripheral edema. Pulses 1+ bilaterally. Patient has bilateral toe gangrene. MONOTYPE SETTER examination;Patient is sedated Results Result Diagram: 11/25/16 0410 11/25/16 041 Results 24 hrs Laboratory Tests Test 11/24/16 08:29 11/24/16 12:10 11/24/16 12:44 11/24/16 17:10 Bedside Glucose 174 136 166 Lab Scanned Report REFERENCE LAB Test 11/24/16 20:42 11/25/16 00:42 11/25/16 04:10 11/25/16 06:16 Bedside Glucose 185 146 177 White Blood Count 9.0 Red Blood Count 3.12 L Hemoglobin 9.4 L Hematocrit 30.1 L Mean Corpuscular Volume 96.5 Mean Corpuscular Hemoglobin 30.1 Mean Corpuscular Hemoglobin Concent 31.2 L Red Cell Distribution Width 14.2 Platelet Count 165 Mean Platelet Volume 11.2 H Neutrophils % 71.1 Lymphocytes % 11.2 L Monocytes % 9.2 Eosinophils % 6.3 Basophils % 0.3 Nucleated Red Blood Cells % 0.0 Neutrophils # 6.4 Lymphocytes # 1.0 Monocytes # 0.8 Eosinophils # 0.6 H Basophils # 0.0 Nucleated Red Blood Cells # 0.0 Sodium Level 143 Potassium Level 3.9 Chloride Level 109 Carbon Dioxide Level 28 Anion Gap 10 Blood Urea Nitrogen 39 H Creatinine 1.89 H Glucose Level 121 # Calcium Level 8.4 Phosphorus Level 3.7 Magnesium Level 2.3 Total Bilirubin 0.6 Direct Bilirubin 0.20 # Indirect Bilirubin 0.4 Aspartate Amino Transf (AST/SGOT) 60 H Alanine Aminotransferase (ALT/SGPT) 599 H Alkaline Phosphatase 109 B-Type Natriuretic Peptide 5900 H Total Protein 5.1 L Albumin 2.6 L Globulin 2.50 Albumin/Globulin Ratio 1.04 Digoxin Level 0.5 L Medications Medications Current Medications Aspirin (Halfprin) 81 mg DAILY PO Last administered on 11/24/16 08:33; Admin Dose 81 MG; Start 11/20/16 at 09:00 Ticagrelor 90 mg 90 mg BID PO Last administered on 11/24/16 20:48; Admin Dose 90 MG; Start 11/19/16 at 21:00 Propofol 100 ml @ 3.818 mls/ hr Q12H IV Last administered on 11/25/16 06:13; Admin Dose 26.727 MLS/HR; Start 11/19/16 at 16:30 Fentanyl (Sublimaze) 100 ml @ 2.5 mls/hr TITRATE IV Last administered on 15:25; Admin Dose 5 MLS/HR; Start 11/19/16 at 17:00 Ondansetron HCl (Zofran Inj) 4 mg Q6H PRN IV NAUSEA AND/OR VOMITING; Start 04/27 at 17:00 Acetaminophen (Tylenol Liquid) 650 mg Q6H PRN PO PAIN LEVEL 1-3 OR FEVER; Start 11/19/16 at 17:00 Acetaminophen (Tylenol Supp) 650 mg Q4H PRN [place] PAIN LEVEL 1-3 OR FEVER; Start 11/19/16 at 17:00 Docusate Sodium (Colace) 100 mg Q12H PRN PO CONSTIPATION; Start 11/19/16 at 17: 00 Magnesium Hydroxide (Milk Of Mag) 30 ml DAILY PRN PO CONSTIPATION; Start at 17:00 Bisacodyl (Dulcolax Supp) 10 mg DAILY PRN [place] CONSTIPATION; Start 11/19/16 at 17 :00 Famotidine (Pepcid Iv) 20 mg DAILY IV Last administered on 11/24/16 08:33; Admin Dose 20 MG; Start 11/19/16 at 17:00 Insulin Aspart (Novolog Insulin Pen) NOVOLOG *MODERATE* ALGORI... Q4 SC Last administered on 11/25/16 06:24; Admin Dose 2 UNIT; Start 11/19/16 at 17:30 Miscellaneous Information 1 ea NOTE XX ; Start 11/19/16 at 17:30 Glucose (Glutose) 15 gm Q15M PRN PO DECREASED GLUCOSE; Start 11/19/16 at 17:30 Glucose (Glutose) 22.5 gm Q15M PRN PO DECREASED GLUCOSE; Start 11/19/16 at 17: 30 Dextrose (D50w Syringe) 25 ml Q15M PRN IV DECREASED GLUCOSE; Start 11/19/16 at 17:30 Dextrose (D50w Syringe) 50 ml Q15M PRN IV DECREASED GLUCOSE; Start 11/19/16 at 17:30 Glucagon (Glucagen) 1 mg Q15M PRN IM DECREASED GLUCOSE; Start 11/19/16 at 17:30 Glucose 15 gm 15 gm Q15M PRN BUCCAL DECREASED GLUCOSE; Start 11/19/16 at 17:30 Norepinephrine 16 mg/Dextrose 500 ml @ 1.875 mls/ hr TITRATE IV Last administered on 11/22/16 01:11; Admin Dose 7.5 MLS/HR; Start 11/20/16 at 19:30 Dextrose/Sodium Chloride (D5-1/2ns) 1,000 ml @ 75 mls/hr [id number] IV Last administered on 11/24/16 22:21; Admin Dose 75 MLS/HR; Start 11/21/16 at 21:00 Amiodarone HCl (Cordarone) 200 mg DAILY GTB Last administered on 11/24/16 09: 52; Admin Dose 200 MG; Start 11/23/16 at 09:00 Nystatin (Nystatin Susp) 5 ml QID PO Last administered on 11/24/16 20:47; Admin Dose 5 ML; Start 11/24/16 at 10:30 Fluconazole (Diflucan) 100 mg DAILY NGT ; Start 11/25/16 at 09:00 Insulin Glargine 18 unit 18 unit DAILY@20 SC Last administered on 11/24/16 20: 44; Admin Dose 18 UNIT; Start 11/24/16 at 20:00 Piperacillin Sod/ Tazobactam Sod (Zosyn 3.375gm/ 100 ml (Pmx)) 100 ml @ 100 mls /hr Q6 IVPB Last administered on 11/25/16 06:15; Admin Dose 100 MLS/HR; Start 11/24/16 at 12:00 Atorvastatin Calcium (Lipitor) 10 mg HS NGT Last administered on 11/24/16 20: 48; Admin Dose 10 MG; Start 11/24/16 at 21:00 ELEONORA LEWIS 17, 2017 07:50
[2016-11-25] MEDS: NYSTATIN SUSP 5 ML CUP PO SCH ×4 (09:47→22:08)
[2016-11-25] MEDS: ASPIRIN (EC) 81 MG TAB PO SCH (09:47)
[2016-11-25] MEDS: AMIODARONE 200 MG TAB GTB SCH (09:48)
[2016-11-25] MEDS: FAMOTIDINE 20 MG INJ IV SCH (09:48)
[2016-11-25] MEDS: FLUCONAZOLE 100 MG TAB NGT SCH (09:48)
[2016-11-25] MEDS: TICAGRELOR 90 MG TABLET PO SCH ×2 (09:49→20:40)
--- NOTE | 2016-11-25 10:23 | RADRPT ---
PROCEDURE: XR Chest 1 view. CLINICAL INDICATION: Shortness of breath TECHNIQUE: AP views of the chest was obtained. COMPARISON: Yesterday FINDINGS: The heart is large. Calcified atherosclerosis is noted in the aorta. Endotracheal and nasogastric t ubes are stable and appear in grossly appropriate location. Right-sided central line is unchanged. Central pulmonary vascular congestion and interstitial prominence in both lungs is stable. Retroca rdiac opacity stable. Patchy right lower lobe infiltrates are unchanged. The osseous structures ar e unchanged. IMPRESSION: Cardiomegaly with calcified atherosclerosis in the aorta. Stable central pulmonary vascular congestion and interstitial prominence in both lungs. Stable retrocardiac opacity that may reflect left lower lobe atelectasis or infiltrate combined with small pleural effusion. Stable patchy infiltrates in the right lower lobe. RPTAT: AA .William Beckwith MD, Date Time Electronically viewed and signed by .William Beckwith MD, MD on 11/25/2016 10:23 .P/
--- NOTE | 2016-11-25 10:29 | PN ---
Date/Time of Note Date/Time of Note DATE: 11/25/16 TIME: 10:23 Assessment/Plan VTE Prophylaxis VTE Prophylaxis Intervention: LMWH Lines/Catheters IV Catheter Type (from Nrs): Central Line Central line still needed: Yes (possible pressor) Urinary Cath still in place: Yes (critical illness) Reason Cath still needed: other (indicate) Assessment/Plan Assessment/Plan 1. cards: s/p ventricular tachycardia arrest (b) STEMI with PCI of RCA, still cad LCx (c) congestive heart failure, will attempt gentle diuresis if BP will tolerate 2. pulm: acute hypoxemic resp failure secondary to cardiac event and chgf, cont vent support (b) unable to wean vent in light of chf 3. pressor induced necrosis of toes Subjective 24 Hr Interval Summary Free Text/Dictation intubated sedatyed, no response to voice Exam/Review of Systems Vital Signs Vitals Vital Signs Date Time Temp Pulse Resp B/P Pulse Ox O2 Delivery O2 Flow Rate FiO2 11/25/16 08:00 56 11/25/16 07:00 21 101/60 98 Mechanical Ventilator 11/25/16 05:10 30 11/25/16 04:00 99.0 Intake and Output 11/24/16 11/24/16 11/25/16 15:00 23:00 07:00 Intake Total 1342.409 ml 1233.227 ml 1307.089 ml Output Total 640 ml 505 ml 485 ml Balance 702.409 ml 728.227 ml 822.089 ml Exam Respiratory: clear to auscultation Cardiovascular: regular rate and rhythm Gastrointestinal: soft Extremities: edema, other (some cyanosis/necrosis of distal toes) Results Result Diagram: 11/25/16 0410 11/25/16 0410 Results 24 hrs Laboratory Tests Test 11/24/16 12:10 11/24/16 12:44 11/24/16 17:10 11/24/16 20:42 Lab Scanned Report REFERENCE LAB Bedside Glucose 136 166 185 Test 11/25/16 00:42 11/25/16 04:10 11/25/16 06:16 11/25/16 09:47 Bedside Glucose 146 177 161 White Blood Count 9.0 Red Blood Count 3.12 L Hemoglobin 9.4 L Hematocrit 30.1 L Mean Corpuscular Volume 96.5 Mean Corpuscular Hemoglobin 30.1 Mean Corpuscular Hemoglobin Concent 31.2 L Red Cell Distribution Width 14.2 Platelet Count 165 Mean Platelet Volume 11.2 H Neutrophils % 71.1 Lymphocytes % 11.2 L Monocytes % 9.2 Eosinophils % 6.3 Basophils % 0.3 Nucleated Red Blood Cells % 0.0 Neutrophils # 6.4 Lymphocytes # 1.0 Monocytes # 0.8 Eosinophils # 0.6 H Basophils # 0.0 Nucleated Red Blood Cells # 0.0 Sodium Level 143 Potassium Level 3.9 Chloride Level 109 Carbon Dioxide Level 28 Anion Gap 10 Blood Urea Nitrogen 39 H Creatinine 1.89 H Glucose Level 121 # Calcium Level 8.4 Phosphorus Level 3.7 Magnesium Level 2.3 Total Bilirubin 0.6 Direct Bilirubin 0.20 # Indirect Bilirubin 0.4 Aspartate Amino Transf (AST/SGOT) 60 H Alanine Aminotransferase (ALT/SGPT) 599 H Alkaline Phosphatase 109 B-Type Natriuretic Peptide 5900 H Total Protein 5.1 L Albumin 2.6 L Globulin 2.50 Albumin/Globulin Ratio 1.04 Digoxin Level 0.5 L Medications Medications Current Medications Aspirin (Halfprin) 81 mg DAILY PO Last administered on 11/25/16 09:47; Admin Dose 81 MG; Start 11/20/16 at 09:00 Ticagrelor 90 mg 90 mg BID PO Last administered on 11/25/16 09:49; Admin Dose 90 MG; Start 11/19/16 at 21:00 Propofol 100 ml @ 3.818 mls/ hr Q12H IV Last administered on 11/25/16 09:57; Admin Dose 26.727 MLS/HR; Start 11/19/16 at 16:30 Fentanyl (Sublimaze) 100 ml @ 2.5 mls/hr TITRATE IV Last administered on 15:25; Admin Dose 5 MLS/HR; Start 11/19/16 at 17:00 Ondansetron HCl (Zofran Inj) 4 mg Q6H PRN IV NAUSEA AND/OR VOMITING; Start 04/27 at 17:00 Acetaminophen (Tylenol Liquid) 650 mg Q6H PRN PO PAIN LEVEL 1-3 OR FEVER; Start 11/19/16 at 17:00 Acetaminophen (Tylenol Supp) 650 mg Q4H PRN [place] PAIN LEVEL 1-3 OR FEVER; Start 11/19/16 at 17:00 Docusate Sodium (Colace) 100 mg Q12H PRN PO CONSTIPATION; Start 11/19/16 at 17: 00 Magnesium Hydroxide (Milk Of Mag) 30 ml DAILY PRN PO CONSTIPATION; Start at 17:00 Bisacodyl (Dulcolax Supp) 10 mg DAILY PRN [place] CONSTIPATION; Start 11/19/16 at 17 :00 Famotidine (Pepcid Iv) 20 mg DAILY IV Last administered on 11/25/16 09:48; Admin Dose 20 MG; Start 11/19/16 at 17:00 Insulin Aspart (Novolog Insulin Pen) NOVOLOG *MODERATE* ALGORI... Q4 SC Last administered on 11/25/16 09:49; Admin Dose 2 UNIT; Start 11/19/16 at 17:30 Miscellaneous Information 1 ea NOTE XX ; Start 11/19/16 at 17:30 Glucose (Glutose) 15 gm Q15M PRN PO DECREASED GLUCOSE; Start 11/19/16 at 17:30 Glucose (Glutose) 22.5 gm Q15M PRN PO DECREASED GLUCOSE; Start 11/19/16 at 17: 30 Dextrose (D50w Syringe) 25 ml Q15M PRN IV DECREASED GLUCOSE; Start 11/19/16 at 17:30 Dextrose (D50w Syringe) 50 ml Q15M PRN IV DECREASED GLUCOSE; Start 11/19/16 at 17:30 Glucagon (Glucagen) 1 mg Q15M PRN IM DECREASED GLUCOSE; Start 11/19/16 at 17:30 Glucose 15 gm 15 gm Q15M PRN BUCCAL DECREASED GLUCOSE; Start 11/19/16 at 17:30 Norepinephrine 16 mg/Dextrose 500 ml @ 1.875 mls/ hr TITRATE IV Last administered on 11/22/16 01:11; Admin Dose 7.5 MLS/HR; Start 11/20/16 at 19:30 Dextrose/Sodium Chloride (D5-1/2ns) 1,000 ml @ 75 mls/hr [id number] IV Last administered on 11/24/16 22:21; Admin Dose 75 MLS/HR; Start 11/21/16 at 21:00 Amiodarone HCl (Cordarone) 200 mg DAILY GTB Last administered on 11/25/16 09: 48; Admin Dose 200 MG; Start 11/23/16 at 09:00 Nystatin (Nystatin Susp) 5 ml QID PO Last administered on 11/25/16 09:47; Admin Dose 5 ML; Start 11/24/16 at 10:30 Fluconazole (Diflucan) 100 mg DAILY NGT Last administered on 11/25/16 09:48; Admin Dose 100 MG; Start 11/25/16 at 09:00 Insulin Glargine 18 unit 18 unit DAILY@20 SC Last administered on 11/24/16 20: 44; Admin Dose 18 UNIT; Start 11/24/16 at 20:00 Piperacillin Sod/ Tazobactam Sod (Zosyn 3.375gm/ 100 ml (Pmx)) 100 ml @ 100 mls /hr Q6 IVPB Last administered on 11/25/16 06:15; Admin Dose 100 MLS/HR; Start 11/24/16 at 12:00 Atorvastatin Calcium (Lipitor) 10 mg HS NGT Last administered on 11/24/16 20: 48; Admin Dose 10 MG; Start 11/24/16 at 21:00 RODRIGO HENLEY MD Nov 25, 2016 10:29
[2016-11-25] MEDS ORDERED: FUROSEMIDE 40 MG INJ IV ONE (10:30)
[2016-11-25] MEDS: FENTAnyl (DRIP) 1000 mcg/100mL 100 ML IV SCH (11:29)
[2016-11-25 14:05] LABS: Allen Test ACCEPTAB; Arterial Base Excess -0.2 mmol/L (-3.0-3); Arterial COHb 0.3 % (0.0-3.0); Arterial MetHb 0.2 % (0.0-1.5); Arterial Total Hemglobin 10.4 g/dl (12.0-18.0); MODE VENT - AC
--- NOTE | 2016-11-25 14:23 | CONS ---
Date/Time of Note Date/Time of Note DATE: 11/25/16 TIME: 14:22 Assessment/Plan Assessment/Plan Additional Assessment/Plan 1. Acute kidney injury on possible previous chronic kidney disease with last creatinine known about 1.48 secondary to acute tubular necrosis from ischemic acute tubular necrosis from cardiogenic shock. 2. Acute respiratory failure from cardiogenic shock, currently intubated on ventilator- failed weaning trial today 3. Acute non-ST elevation myocardial infarction, S/p IABP , now off, . 4. History of possible chronic kidney disease secondary to diabetic nephropathy , unknown stage. 5. History of type 2 diabetes mellitus. 6. History of hypertension. Plan: remains intubated, ventilator care as per pulmonary BUN/Cr improving, good urine ouptut, 1.6 liter, expecting renal function to improve continue IVF D51/2 NS at 75 cc/hr on Brilinat Post cath will continue to follow up on patient Consultation Date/Type/Reason Admit Date/Time Nov 19, 2016 at 16:09 Initial Consult Date Nov Type of Consultation: NEPHROLOGY Referring Provider: PIO VEGA 24 HR Interval Summary Free Text/Dictation pt remains intubatd, BP stable, Exam/Review of Systems Vital Signs Vitals Vital Signs Date Time Temp Pulse Resp B/P Pulse Ox O2 Delivery O2 Flow Rate FiO2 11/25/16 14:00 60 22 107/68 100 Mechanical Ventilator 11/25/16 12:00 98.5 11/25/16 12:00 30 Intake and Output 11/24/16 11/24/16 11/25/16 15:00 23:00 07:00 Intake Total 1342.409 ml 1233.227 ml 1307.089 ml Output Total 640 ml 505 ml 485 ml Balance 702.409 ml 728.227 ml 822.089 ml Exam GENERAL: no acute distress NECK: supple + Et tube LUNGS: Bilateral coarse breath sounds HEART: S1, S2, tachycardia, no murmur. ABDOMEN: Soft, morbidly obese. EXTREMITIES: 1 to 2+ pitting edema. No clubbing, cyanosis. NEUROLOGICAL: Uncooperative for exam PSYCHIATRIC: Not able to assess at this point. Results Result Diagram: 11/25/16 0410 11/25/16 0410 Results 24 hrs Laboratory Tests Test 11/24/16 17:10 11/24/16 20:42 11/25/16 00:42 11/25/16 04:10 Bedside Glucose 166 185 146 White Blood Count 9.0 Red Blood Count 3.12 L Hemoglobin 9.4 L Hematocrit 30.1 L Mean Corpuscular Volume 96.5 Mean Corpuscular Hemoglobin 30.1 Mean Corpuscular Hemoglobin Concent 31.2 L Red Cell Distribution Width 14.2 Platelet Count 165 Mean Platelet Volume 11.2 H Neutrophils % 71.1 Lymphocytes % 11.2 L Monocytes % 9.2 Eosinophils % 6.3 Basophils % 0.3 Nucleated Red Blood Cells % 0.0 Neutrophils # 6.4 Lymphocytes # 1.0 Monocytes # 0.8 Eosinophils # 0.6 H Basophils # 0.0 Nucleated Red Blood Cells # 0.0 Sodium Level 143 Potassium Level 3.9 Chloride Level 109 Carbon Dioxide Level 28 Anion Gap 10 Blood Urea Nitrogen 39 H Creatinine 1.89 H Glucose Level 121 # Calcium Level 8.4 Phosphorus Level 3.7 Magnesium Level 2.3 Total Bilirubin 0.6 Direct Bilirubin 0.20 # Indirect Bilirubin 0.4 Aspartate Amino Transf (AST/SGOT) 60 H Alanine Aminotransferase (ALT/SGPT) 599 H Alkaline Phosphatase 109 B-Type Natriuretic Peptide 5900 H Total Protein 5.1 L Albumin 2.6 L Globulin 2.50 Albumin/Globulin Ratio 1.04 Digoxin Level 0.5 L Test 11/25/16 06:16 11/25/16 07:00 11/25/16 09:47 11/25/16 13:51 Bedside Glucose 177 161 140 Blood Gas Specimen Source Blood arterial Arterial Blood Date Drawn 11/25/2016 7:40:04 AM Arterial Blood pH (Temp corrected) 7.468 H Arterial Blood pCO2 (Temp correct) 32.5 L Arterial Blood pO2 (Temp corrected) 88.7 Arterial Blood HCO3 23.0 Arterial Blood Base Excess -0.2 Arterial Blood Oxygen Saturation 96.5 Keron Test ACCEPTAB Arterial Blood Gas Puncture Site Right Radial Arterial Blood Carboxyhemoglobin 0.3 Arterial Blood Methemoglobin 0.2 Blood Gas A-a O2 Differential 87.0 H Oxyhemoglobin Percent 96.0 Total Hemoglobin 10.4 L Blood Gas Temperature 37.0 Blood Gas Respiration Rate 20.0 Blood Gas Actual Respiration Rate 25 Blood Gas Modality VENT - AC FiO2 30.0 Blood Gas Tidal Volume 500.0 Blood Gas Low PEEP Setting 7.0 Blood Gas Notified Whom RT Blood Gas Notified Time 11/25/2016 7:49:43 AM Medications Medications Current Medications Aspirin (Halfprin) 81 mg DAILY PO Last administered on 11/25/16 09:47; Admin Dose 81 MG; Start 11/20/16 at 09:00 Ticagrelor 90 mg 90 mg BID PO Last administered on 11/25/16 09:49; Admin Dose 90 MG; Start 11/19/16 at 21:00 Propofol 100 ml @ 3.818 mls/ hr Q12H IV Last administered on 11/25/16 13:48; Admin Dose 26.727 MLS/HR; Start 11/19/16 at 16:30 Fentanyl (Sublimaze) 100 ml @ 2.5 mls/hr TITRATE IV Last administered on 11:29; Admin Dose 5 MLS/HR; Start 11/19/16 at 17:00 Ondansetron HCl (Zofran Inj) 4 mg Q6H PRN IV NAUSEA AND/OR VOMITING; Start 04/27 at 17:00 Acetaminophen (Tylenol Liquid) 650 mg Q6H PRN PO PAIN LEVEL 1-3 OR FEVER; Start 11/19/16 at 17:00 Acetaminophen (Tylenol Supp) 650 mg Q4H PRN [place] PAIN LEVEL 1-3 OR FEVER; Start 11/19/16 at 17:00 Docusate Sodium (Colace) 100 mg Q12H PRN PO CONSTIPATION; Start 11/19/16 at 17: 00 Magnesium Hydroxide (Milk Of Mag) 30 ml DAILY PRN PO CONSTIPATION; Start at 17:00 Bisacodyl (Dulcolax Supp) 10 mg DAILY PRN [place] CONSTIPATION; Start 11/19/16 at 17 :00 Famotidine (Pepcid Iv) 20 mg DAILY IV Last administered on 11/25/16 09:48; Admin Dose 20 MG; Start 11/19/16 at 17:00 Insulin Aspart (Novolog Insulin Pen) NOVOLOG *MODERATE* ALGORI... Q4 SC Last administered on 11/25/16 09:49; Admin Dose 2 UNIT; Start 11/19/16 at 17:30 Miscellaneous Information 1 ea NOTE XX ; Start 11/19/16 at 17:30 Glucose (Glutose) 15 gm Q15M PRN PO DECREASED GLUCOSE; Start 11/19/16 at 17:30 Glucose (Glutose) 22.5 gm Q15M PRN PO DECREASED GLUCOSE; Start 11/19/16 at 17: 30 Dextrose (D50w Syringe) 25 ml Q15M PRN IV DECREASED GLUCOSE; Start 11/19/16 at 17:30 Dextrose (D50w Syringe) 50 ml Q15M PRN IV DECREASED GLUCOSE; Start 11/19/16 at 17:30 Glucagon (Glucagen) 1 mg Q15M PRN IM DECREASED GLUCOSE; Start 11/19/16 at 17:30 Glucose 15 gm 15 gm Q15M PRN BUCCAL DECREASED GLUCOSE; Start 11/19/16 at 17:30 Norepinephrine 16 mg/Dextrose 500 ml @ 1.875 mls/ hr TITRATE IV Last administered on 11/22/16 01:11; Admin Dose 7.5 MLS/HR; Start 11/20/16 at 19:30 Dextrose/Sodium Chloride (D5-1/2ns) 1,000 ml @ 75 mls/hr [id number] IV Last administered on 11/24/16 22:21; Admin Dose 75 MLS/HR; Start 11/21/16 at 21:00 Amiodarone HCl (Cordarone) 200 mg DAILY GTB Last administered on 11/25/16 09: 48; Admin Dose 200 MG; Start 11/23/16 at 09:00 Nystatin (Nystatin Susp) 5 ml QID PO Last administered on 11/25/16 12:32; Admin Dose 5 ML; Start 11/24/16 at 10:30 Fluconazole (Diflucan) 100 mg DAILY NGT Last administered on 11/25/16 09:48; Admin Dose 100 MG; Start 11/25/16 at 09:00 Insulin Glargine 18 unit 18 unit DAILY@20 SC Last administered on 11/24/16 20: 44; Admin Dose 18 UNIT; Start 11/24/16 at 20:00 Piperacillin Sod/ Tazobactam Sod (Zosyn 3.375gm/ 100 ml (Pmx)) 100 ml @ 100 mls /hr Q6 IVPB Last administered on 11/25/16 12:32; Admin Dose 100 MLS/HR; Start 11/24/16 at 12:00 Atorvastatin Calcium (Lipitor) 10 mg HS NGT Last administered on 6/16/17at 20: 48; Admin Dose 10 MG; Start 11/24/16 at 21:00 FÁTIMA PERES MD Nov 25, 2016 14:23
[2016-11-25] MEDS: INSULIN GLARGINE [LANtus] 3 ML PEN SC SCH (20:32)
[2016-11-25] MEDS: ATORVASTATIN 10 MG TAB NGT SCH (20:39)
[2016-11-26] VITALS (58 sets, daily range): BP systolic 81–118; BP diastolic 56–80; PULSE 52–108; RESP 14–31
[2016-11-26] MEDS: PROPOFOL 100 ML IV SCH ×6 (00:02→22:55)
[2016-11-26] MEDS: INSULIN ASPART [NOVOLOG] 3 ML PEN SC SCH ×6 (01:00→21:10)
[2016-11-26] MEDS: PIPER-TAZO 3.375 GM IV (PMX) 100 ML IVPB SCH ×4 (04:53→23:45)
[2016-11-26 05:03] LABS: ADD SCAN DIFF NO
[2016-11-26 05:14] LABS: BASOPHILS % 0.3 % (0.0-2.0); EOSINOPHILS # 0.8 10^3/ul (0.0-0.5); EOSINOPHILS % 6.4 % (0.0-7.0); HEMATOCRIT 32.4 % (42.0-52.0); HEMOGLOBIN 10.1 g/dl (14.0-18.0); LYMPHOCYTES # 1.3 10^3/ul (0.8-2.9); LYMPHOCYTES % 10.7 % (15.0-51.0); MEAN CORPUSCULAR HGB CONC 31.2 g/dl (32.0-37.0); MEAN CORPUSCULAR VOLUME 96.1 fl (82.0-101.0); MEAN PLATELET VOLUME 11.2 fl (7.4-10.4); MONOCYTE # 0.9 10^3/ul (0.3-0.9); MONOCYTES % 7.6 % (0.0-11.0); NEUTROPHIL # 8.7 10^3/ul (1.6-7.5); PLATELET COUNT 168 10^3/UL (140-415); RED BLOOD COUNT 3.37 10^6/ul (4.70-6.10); RED CELL DISTRIBUTION WIDTH 14.4 % (11.5-14.5)
[2016-11-26 05:42] LABS: CALCIUM 8.5 mg/dl (8.4-10.2); CREATININE 1.85 mg/dl (0.61-1.24); POTASSIUM 3.6 mmol/L (3.5-5.1)
[2016-11-26] MEDS: DEXTROSE 5%-0.45% NACL 1,000 ML IV SCH (06:15)
[2016-11-26] MEDS: FENTAnyl (DRIP) 1000 mcg/100mL 100 ML IV SCH (09:09)
[2016-11-26] MEDS: NYSTATIN SUSP 5 ML CUP PO SCH ×4 (10:44→21:07)
[2016-11-26] MEDS: AMIODARONE 200 MG TAB GTB SCH (10:44)
[2016-11-26] MEDS: FAMOTIDINE 20 MG INJ IV SCH (10:44)
[2016-11-26] MEDS: ASPIRIN (EC) 81 MG TAB PO SCH (10:44)
[2016-11-26] MEDS: FLUCONAZOLE 100 MG TAB NGT SCH (10:45)
[2016-11-26] MEDS: TICAGRELOR 90 MG TABLET PO SCH ×2 (10:47→21:08)
--- NOTE | 2016-11-26 10:47 | CONS ---
Date/Time of Note Date/Time of Note DATE: 11/26/16 TIME: 10:43 Assessment/Plan Assessment/Plan Additional Assessment/Plan Chest x-ray was reviewed from yesterday late morning which is showing mild pulmonary vascular congestion with a scant left lower lobe infiltrate. Endotracheal tube is at an adequate level. Chest x-ray from today is pending. Ventilator setting; AC of 20, tidal volume 500, PEEP of 7, 30% FiO2. Patient currently on propofol at 3 mics micrograms per minute. Fentanyl at 50 mics per hour. Assessment recommendations; 1. Patient admitted with cardiac arrest underwent emergent coronary angiography with stenting of circumflex lesion. 2. Likely some element of anoxic brain insult. Preventing weaning from ventilator. 3. Improving renal insufficiency. 4. Mild CHF. 5. Left lower lobe pneumonia. 6. Diabetes. 7. 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 Patient has excellent bilateral dorsalis pedis pulses. 8. Failure to be weaned from ventilator due to agitation once off sedation. Continue current supportive care. Prognosis depends upon adequate mental status recovery. Give another sedation vacation trial in 24 hours. 35 minutes of critical care time was spent evaluating the patient. Consultation Date/Type/Reason Admit Date/Time Nov 19, 2016 at 16:09 Type of Consultation: Pulmonary/critical care Referring Provider: PIO VEGA 24 HR Interval Summary Free Text/Dictation Patient condition remains critical. The patient again failed a sedation vacation trial leading to agitation requiring to be re-sedated. General exam; middle-aged male, morbidly obese, currently in no distress. Sedated. Exam/Review of Systems Vital Signs Vitals Vital Signs Date Time Temp Pulse Resp B/P Pulse Ox O2 Delivery O2 Flow Rate FiO2 11/26/16 08:41 54 11/26/16 06:15 20 104/65 99 Mechanical Ventilator 11/26/16 05:06 30 11/26/16 03:15 98.7 Intake and Output 11/25/16 11/25/16 11/26/16 15:00 23:00 07:00 Intake Total 1193.831 ml 920.781 ml 769.7 ml Output Total 1125 ml 745 ml 695 ml Balance 68.831 ml 175.781 ml 74.7 ml Exam HEENT exam is; supple neck, no JVD. No lymphadenopathy. Midline trachea. No thyromegaly. Patient is edentulous. Pupils are small bilaterally. Orally intubated. Chest examination; diminished but clear vessel. S1-S2 audible, no murmurs. Regular rhythm. Abdomen examination; soft, no organomegaly. Bowel sounds audible. Extremity exam is; no peripheral edema. Pulses 2+ bilaterally. There is stable gangrene involving bilateral toes. [employer] EST[employer]MENT [employer]GER examination of Yobany patient is sedated. Results Result Diagram: 11/26/16 0400 11/26/16 0400 Results 24 hrs Laboratory Tests Test 11/25/16 13:51 11/25/16 20:29 11/26/16 01:10 11/26/16 04:00 Bedside Glucose 140 148 136 White Blood Count 12.0 #H Red Blood Count 3.37 L Hemoglobin 10.1 L Hematocrit 32.4 L Mean Corpuscular Volume 96.1 Mean Corpuscular Hemoglobin 30.0 Mean Corpuscular Hemoglobin Concent 31.2 L Red Cell Distribution Width 14.4 Platelet Count 168 Mean Platelet Volume 11.2 H Neutrophils % 72.0 Lymphocytes % 10.7 L Monocytes % 7.6 Eosinophils % 6.4 Basophils % 0.3 Nucleated Red Blood Cells % 0.0 Neutrophils # 8.7 H Lymphocytes # 1.3 Monocytes # 0.9 Eosinophils # 0.8 H Basophils # 0.0 Nucleated Red Blood Cells # 0.0 Sodium Level 143 Potassium Level 3.6 Chloride Level 109 Carbon Dioxide Level 29 Anion Gap 9 Blood Urea Nitrogen 39 H Creatinine 1.85 H Glucose Level 136 Calcium Level 8.5 Test 11/26/16 04:53 Bedside Glucose 136 Medications Medications Current Medications Aspirin (Halfprin) 81 mg DAILY PO Last administered on 11/25/16 09:47; Admin Dose 81 MG; Start 11/20/16 at 09:00 Ticagrelor 90 mg 90 mg BID PO Last administered on 11/25/16 20:40; Admin Dose 90 MG; Start 11/19/16 at 21:00 Propofol 100 ml @ 3.818 mls/ hr Q12H IV Last administered on 11/26/16 09:51; Admin Dose 22.909 MLS/HR; Start 11/19/16 at 16:30 Fentanyl (Sublimaze) 100 ml @ 2.5 mls/hr TITRATE IV Last administered on 09:09; Admin Dose 5 MLS/HR; Start 11/19/16 at 17:00 Ondansetron HCl (Zofran Inj) 4 mg Q6H PRN IV NAUSEA AND/OR VOMITING; Start 04/27 at 17:00 Acetaminophen (Tylenol Liquid) 650 mg Q6H PRN PO PAIN LEVEL 1-3 OR FEVER; Start 11/19/16 at 17:00 Acetaminophen (Tylenol Supp) 650 mg Q4H PRN [place] PAIN LEVEL 1-3 OR FEVER; Start 11/19/16 at 17:00 Docusate Sodium (Colace) 100 mg Q12H PRN PO CONSTIPATION; Start 11/19/16 at 17: 00 Magnesium Hydroxide (Milk Of Mag) 30 ml DAILY PRN PO CONSTIPATION; Start at 17:00 Bisacodyl (Dulcolax Supp) 10 mg DAILY PRN [place] CONSTIPATION; Start 11/19/16 at 17 :00 Famotidine (Pepcid Iv) 20 mg DAILY IV Last administered on 11/25/16 09:48; Admin Dose 20 MG; Start 11/19/16 at 17:00 Insulin Aspart (Novolog Insulin Pen) NOVOLOG *MODERATE* ALGORI... Q4 SC Last administered on 11/25/16 20:34; Admin Dose 2 UNIT; Start 11/19/16 at 17:30 Miscellaneous Information 1 ea NOTE XX ; Start 11/19/16 at 17:30 Glucose (Glutose) 15 gm Q15M PRN PO DECREASED GLUCOSE; Start 11/19/16 at 17:30 Glucose (Glutose) 22.5 gm Q15M PRN PO DECREASED GLUCOSE; Start 11/19/16 at 17: 30 Dextrose (D50w Syringe) 25 ml Q15M PRN IV DECREASED GLUCOSE; Start 11/19/16 at 17:30 Dextrose (D50w Syringe) 50 ml Q15M PRN IV DECREASED GLUCOSE; Start 11/19/16 at 17:30 Glucagon (Glucagen) 1 mg Q15M PRN IM DECREASED GLUCOSE; Start 11/19/16 at 17:30 Glucose 15 gm 15 gm Q15M PRN BUCCAL DECREASED GLUCOSE; Start 11/19/16 at 17:30 Norepinephrine 16 mg/Dextrose 500 ml @ 1.875 mls/ hr TITRATE IV Last administered on 11/22/16 01:11; Admin Dose 7.5 MLS/HR; Start 11/20/16 at 19:30 Dextrose/Sodium Chloride (D5-1/2ns) 1,000 ml @ 75 mls/hr [id number] IV Last administered on 11/26/16 06:15; Admin Dose 75 MLS/HR; Start 11/21/16 at 21:00 Amiodarone HCl (Cordarone) 200 mg DAILY GTB Last administered on 11/25/16 09: 48; Admin Dose 200 MG; Start 11/23/16 at 09:00 Nystatin (Nystatin Susp) 5 ml QID PO Last administered on 11/25/16 22:08; Admin Dose 5 ML; Start 11/24/16 at 10:30 Fluconazole (Diflucan) 100 mg DAILY NGT Last administered on 11/25/16 09:48; Admin Dose 100 MG; Start 11/25/16 at 09:00 Insulin Glargine 18 unit 18 unit DAILY@20 SC Last administered on 11/25/16 20: 32; Admin Dose 18 UNIT; Start 11/24/16 at 20:00 Piperacillin Sod/ Tazobactam Sod (Zosyn 3.375gm/ 100 ml (Pmx)) 100 ml @ 100 mls /hr Q6 IVPB Last administered on 11/26/16 04:53; Admin Dose 100 MLS/HR; Start 11/24/16 at 12:00 Atorvastatin Calcium (Lipitor) 10 mg HS NGT Last administered on 11/25/16 20: 39; Admin Dose 10 MG; Start 11/24/16 at 21:00 ELEONORA LEWIS Nov 26, 2016 10:47
--- NOTE | 2016-11-26 11:14 | PN ---
Date/Time of Note Date/Time of Note DATE: 11/26/16 TIME: 11:11 Assessment/Plan VTE Prophylaxis VTE Prophylaxis Intervention: LMWH Lines/Catheters IV Catheter Type (from Nrsg): Central Line Central line still needed: Yes (sedation) Urinary Cath still in place: Yes (critical illness) Reason Cath still needed: other (indicate) Assessment/Plan Assessment/Plan 1. cards: s/p v tach arrest (b) pci of RCA, possible staged procedure to LCx required (c) chf with pulm vasc congestion contributing to difficulty weaning. will hold IVF, spot with lasix 2. pulm: resp failure, cont vent support, wean as tolerated 3. renal: acuter renal failure resolving/resolved to ckd 4. necrosis of toes related to pressor/emboli 5. possible component of anoxic encephalopathy, will have to defer evaluation until sedation weaned Subjective 24 Hr Interval Summary Free Text/Dictation no response to voice Exam/Review of Systems Vital Signs Vitals Vital Signs Date Time Temp Pulse Resp B/P Pulse Ox O2 Delivery O2 Flow Rate FiO2 11/26/16 08:41 54 11/26/16 06:15 20 104/65 99 Mechanical Ventilator 11/26/16 05:06 30 11/26/16 03:15 98.7 Intake and Output 11/25/16 11/25/16 11/26/16 15:00 23:00 07:00 Intake Total 1193.831 ml 920.781 ml 769.7 ml Output Total 1125 ml 745 ml 695 ml Balance 68.831 ml 175.781 ml 74.7 ml Exam Respiratory: clear to auscultation Cardiovascular: regular rate and rhythm Gastrointestinal: non-tender, soft Extremities: edema Results Result Diagram: 11/26/16 0400 11/26/16 0400 Results 24 hrs Laboratory Tests Test 11/25/16 13:51 11/25/16 20:29 11/26/16 01:10 11/26/16 04:00 Bedside Glucose 140 148 136 White Blood Count 12.0 #H Red Blood Count 3.37 L Hemoglobin 10.1 L Hematocrit 32.4 L Mean Corpuscular Volume 96.1 Mean Corpuscular Hemoglobin 30.0 Mean Corpuscular Hemoglobin Concent 31.2 L Red Cell Distribution Width 14.4 Platelet Count 168 Mean Platelet Volume 11.2 H Neutrophils % 72.0 Lymphocytes % 10.7 L Monocytes % 7.6 Eosinophils % 6.4 Basophils % 0.3 Nucleated Red Blood Cells % 0.0 Neutrophils # 8.7 H Lymphocytes # 1.3 Monocytes # 0.9 Eosinophils # 0.8 H Basophils # 0.0 Nucleated Red Blood Cells # 0.0 Sodium Level 143 Potassium Level 3.6 Chloride Level 109 Carbon Dioxide Level 29 Anion Gap 9 Blood Urea Nitrogen 39 H Creatinine 1.85 H Glucose Level 136 Calcium Level 8.5 Test 11/26/16 04:53 11/26/16 10:42 Bedside Glucose 136 156 Medications Medications Current Medications Aspirin (Halfprin) 81 mg DAILY PO Last administered on 11/26/16 10:44; Admin Dose 81 MG; Start 11/20/16 at 09:00 Ticagrelor 90 mg 90 mg BID PO Last administered on 11/26/16 10:47; Admin Dose 90 MG; Start 11/19/16 at 21:00 Propofol 100 ml @ 3.818 mls/ hr Q12H IV Last administered on 11/26/16 09:51; Admin Dose 22.909 MLS/HR; Start 11/19/16 at 16:30 Fentanyl (Sublimaze) 100 ml @ 2.5 mls/hr TITRATE IV Last administered on 09:09; Admin Dose 5 MLS/HR; Start 11/19/16 at 17:00 Ondansetron HCl (Zofran Inj) 4 mg Q6H PRN IV NAUSEA AND/OR VOMITING; Start 04/27 at 17:00 Acetaminophen (Tylenol Liquid) 650 mg Q6H PRN PO PAIN LEVEL 1-3 OR FEVER; Start 11/19/16 at 17:00 Acetaminophen (Tylenol Supp) 650 mg Q4H PRN [place] PAIN LEVEL 1-3 OR FEVER; Start 11/19/16 at 17:00 Docusate Sodium (Colace) 100 mg Q12H PRN PO CONSTIPATION; Start 11/19/16 at 17: 00 Magnesium Hydroxide (Milk Of Mag) 30 ml DAILY PRN PO CONSTIPATION; Start at 17:00 Bisacodyl (Dulcolax Supp) 10 mg DAILY PRN [place] CONSTIPATION; Start 11/19/16 at 17 :00 Famotidine (Pepcid Iv) 20 mg DAILY IV Last administered on 11/26/16 10:44; Admin Dose 20 MG; Start 11/19/16 at 17:00 Insulin Aspart (Novolog Insulin Pen) NOVOLOG *MODERATE* ALGORI... Q4 SC Last administered on 11/26/16 10:46; Admin Dose 2 UNIT; Start 11/19/16 at 17:30 Miscellaneous Information 1 ea NOTE XX ; Start 11/19/16 at 17:30 Glucose (Glutose) 15 gm Q15M PRN PO DECREASED GLUCOSE; Start 11/19/16 at 17:30 Glucose (Glutose) 22.5 gm Q15M PRN PO DECREASED GLUCOSE; Start 11/19/16 at 17: 30 Dextrose (D50w Syringe) 25 ml Q15M PRN IV DECREASED GLUCOSE; Start 11/19/16 at 17:30 Dextrose (D50w Syringe) 50 ml Q15M PRN IV DECREASED GLUCOSE; Start 11/19/16 at 17:30 Glucagon (Glucagen) 1 mg Q15M PRN IM DECREASED GLUCOSE; Start 11/19/16 at 17:30 Glucose 15 gm 15 gm Q15M PRN BUCCAL DECREASED GLUCOSE; Start 11/19/16 at 17:30 Norepinephrine 16 mg/Dextrose 500 ml @ 1.875 mls/ hr TITRATE IV Last administered on 11/22/16 01:11; Admin Dose 7.5 MLS/HR; Start 11/20/16 at 19:30 Dextrose/Sodium Chloride (D5-1/2ns) 1,000 ml @ 75 mls/hr [id number] IV Last administered on 11/26/16 06:15; Admin Dose 75 MLS/HR; Start 11/21/16 at 21:00 Amiodarone HCl (Cordarone) 200 mg DAILY GTB Last administered on 11/26/16 10: 44; Admin Dose 200 MG; Start 11/23/16 at 09:00 Nystatin (Nystatin Susp) 5 ml QID PO Last administered on 11/26/16 10:44; Admin Dose 5 ML; Start 11/24/16 at 10:30 Fluconazole (Diflucan) 100 mg DAILY NGT Last administered on 11/26/16 10:45; Admin Dose 100 MG; Start 11/25/16 at 09:00 Insulin Glargine 18 unit 18 unit DAILY@20 SC Last administered on 11/25/16 20: 32; Admin Dose 18 UNIT; Start 11/24/16 at 20:00 Piperacillin Sod/ Tazobactam Sod (Zosyn 3.375gm/ 100 ml (Pmx)) 100 ml @ 100 mls /hr Q6 IVPB Last administered on 11/26/16 04:53; Admin Dose 100 MLS/HR; Start 11/24/16 at 12:00 Atorvastatin Calcium (Lipitor) 10 mg HS NGT Last administered on 11/25/16 20: 39; Admin Dose 10 MG; Start 11/24/16 at 21:00 RODRIGO HENLEY MD Nov 26, 2016 11:14
--- NOTE | 2016-11-26 11:20 | CONS ---
Date/Time of Note Date/Time of Note DATE: 11/26/16 TIME: 11:18 Assessment/Plan Assessment/Plan Additional Assessment/Plan Myocardial infarction status post PCI Cardiomyopathy with ejection fraction 45% Respiratory failure Acute kidney injury -Continue dual antiplatelet therapy, statin therapy. Fluid management as per our nephrology colleagues. Antibiotics as per primary team. Dr Simeon to resume care 11/27/2016 Consultation Date/Type/Reason Admit Date/Time Nov 19, 2016 at 16:09 Initial Consult Date Type of Consultation: cv Referring Provider: PIO VEGA 24 HR Interval Summary Free Text/Dictation Patient seen and examined, no new cardiac issues as per nursing staff Exam/Review of Systems Vital Signs Vitals Vital Signs Date Time Temp Pulse Resp B/P Pulse Ox O2 Delivery O2 Flow Rate FiO2 11/26/16 08:41 54 11/26/16 06:15 20 104/65 99 Mechanical Ventilator 11/26/16 05:06 30 11/26/16 03:15 98.7 Intake and Output 11/25/16 11/25/16 11/26/16 15:00 23:00 07:00 Intake Total 1193.831 ml 920.781 ml 769.7 ml Output Total 1125 ml 745 ml 695 ml Balance 68.831 ml 175.781 ml 74.7 ml Exam Intubated and sedated, no apparent distress Head: normocephalic ENMT: intubated Respiratory: other (Coarse breath sounds bilaterally, no wheezing) Cardiovascular: other (S1-S2 heard), regular rate and rhythm Gastrointestinal: bowel sounds, non-tender, soft Extremities: edema Results Result Diagram: 11/26/16 0400 11/26/16 0400 Results 24 hrs Laboratory Tests Test 11/25/16 13:51 11/25/16 20:29 11/26/16 01:10 11/26/16 04:00 Bedside Glucose 140 148 136 White Blood Count 12.0 #H Red Blood Count 3.37 L Hemoglobin 10.1 L Hematocrit 32.4 L Mean Corpuscular Volume 96.1 Mean Corpuscular Hemoglobin 30.0 Mean Corpuscular Hemoglobin Concent 31.2 L Red Cell Distribution Width 14.4 Platelet Count 168 Mean Platelet Volume 11.2 H Neutrophils % 72.0 Lymphocytes % 10.7 L Monocytes % 7.6 Eosinophils % 6.4 Basophils % 0.3 Nucleated Red Blood Cells % 0.0 Neutrophils # 8.7 H Lymphocytes # 1.3 Monocytes # 0.9 Eosinophils # 0.8 H Basophils # 0.0 Nucleated Red Blood Cells # 0.0 Sodium Level 143 Potassium Level 3.6 Chloride Level 109 Carbon Dioxide Level 29 Anion Gap 9 Blood Urea Nitrogen 39 H Creatinine 1.85 H Glucose Level 136 Calcium Level 8.5 Test 11/26/16 04:53 11/26/16 10:42 Bedside Glucose 136 156 Medications Medications Current Medications Aspirin (Halfprin) 81 mg DAILY PO Last administered on 11/26/16 10:44; Admin Dose 81 MG; Start 11/20/16 at 09:00 Ticagrelor 90 mg 90 mg BID PO Last administered on 11/26/16 10:47; Admin Dose 90 MG; Start 11/19/16 at 21:00 Propofol 100 ml @ 3.818 mls/ hr Q12H IV Last administered on 11/26/16 09:51; Admin Dose 22.909 MLS/HR; Start 11/19/16 at 16:30 Fentanyl (Sublimaze) 100 ml @ 2.5 mls/hr TITRATE IV Last administered on 09:09; Admin Dose 5 MLS/HR; Start 11/19/16 at 17:00 Ondansetron HCl (Zofran Inj) 4 mg Q6H PRN IV NAUSEA AND/OR VOMITING; Start 04/27 at 17:00 Acetaminophen (Tylenol Liquid) 650 mg Q6H PRN PO PAIN LEVEL 1-3 OR FEVER; Start 11/19/16 at 17:00 Acetaminophen (Tylenol Supp) 650 mg Q4H PRN SD PAIN LEVEL 1-3 OR FEVER; Start 11/19/16 at 17:00 Docusate Sodium (Colace) 100 mg Q12H PRN PO CONSTIPATION; Start 11/19/16 at 17: 00 Magnesium Hydroxide (Milk Of Mag) 30 ml DAILY PRN PO CONSTIPATION; Start at 17:00 Bisacodyl (Dulcolax Supp) 10 mg DAILY PRN [place] CONSTIPATION; Start 11/19/16 at 17 :00 Famotidine (Pepcid Iv) 20 mg DAILY IV Last administered on 11/26/16 10:44; Admin Dose 20 MG; Start 11/19/16 at 17:00 Insulin Aspart (Novolog Insulin Pen) NOVOLOG *MODERATE* ALGORI... Q4 SC Last administered on 11/26/16 10:46; Admin Dose 2 UNIT; Start 11/19/16 at 17:30 Miscellaneous Information 1 ea NOTE XX ; Start 11/19/16 at 17:30 Glucose (Glutose) 15 gm Q15M PRN PO DECREASED GLUCOSE; Start 11/19/16 at 17:30 Glucose (Glutose) 22.5 gm Q15M PRN PO DECREASED GLUCOSE; Start 11/19/16 at 17: 30 Dextrose (D50w Syringe) 25 ml Q15M PRN IV DECREASED GLUCOSE; Start 11/19/16 at 17:30 Dextrose (D50w Syringe) 50 ml Q15M PRN IV DECREASED GLUCOSE; Start 11/19/16 at 17:30 Glucagon (Glucagen) 1 mg Q15M PRN IM DECREASED GLUCOSE; Start 11/19/16 at 17:30 Glucose 15 gm 15 gm Q15M PRN BUCCAL DECREASED GLUCOSE; Start 11/19/16 at 17:30 Norepinephrine/ Dextrose (Levophed/D5W) 500 ml @ 1.875 mls/ hr TITRATE IV Last administered on 11/22/16 01:11; Admin Dose 7.5 MLS/HR; Start 11/20/16 at 19:30 Amiodarone HCl (Cordarone) 200 mg DAILY GTB Last administered on 11/26/16 10: 44; Admin Dose 200 MG; Start 11/23/16 at 09:00 Nystatin (Nystatin Susp) 5 ml QID PO Last administered on 11/26/16 10:44; Admin Dose 5 ML; Start 11/24/16 at 10:30 Fluconazole (Diflucan) 100 mg DAILY NGT Last administered on 11/26/16 10:45; Admin Dose 100 MG; Start 11/25/16 at 09:00 Insulin Glargine 18 unit 18 unit DAILY@20 SC Last administered on 11/25/16 20: 32; Admin Dose 18 UNIT; Start 11/24/16 at 20:00 Piperacillin Sod/ Tazobactam Sod (Zosyn 3.375gm/ 100 ml (Pmx)) 100 ml @ 100 mls /hr Q6 IVPB Last administered on 11/26/16 04:53; Admin Dose 100 MLS/HR; Start 11/24/16 at 12:00 Atorvastatin Calcium (Lipitor) 10 mg HS NGT Last administered on 11/25/16 20: 39; Admin Dose 10 MG; Start 11/24/16 at 21:00 Furosemide (Lasix) 40 mg ONCE ONCE IV ; Start 11/26/16 at 11:30; Stop 11/26/16 at 11:31; Status Yobany Bishop DO Nov 26, 2016 11:20
--- NOTE | 2016-11-26 11:27 | RADRPT ---
PROCEDURE: XR 1 view Chest. CLINICAL INDICATION: CHF. TECHNIQUE: Portable Single frontal view of the chest was obtained. COMPARISON: November 25, 2016. FINDINGS: There is a stable endotracheal tube 3.5 cm above the margot. There is a stable nasogastric tube pro jecting below the left diaphragm. There is a stable right internal jugular central venous catheter with tip within the cavoatrial junction. There is mild to moderate cardiomegaly with mild aortic calcifications. There is moderate pulmonary vascular congestion. There is probable small left pleural effusion with associate atelectasis/cons olidation. No pneumothorax is identified. The osseous structures are intact. IMPRESSION: No significant change. Mild to moderate cardiomegaly with moderate pulmonary vascular congestion and probable small left pl eural effusion. Aortic calcifications. Tubes and lines unchanged. Further findings as detailed above. RPTAT: PP .Av Orellana MD, Date Time Electronically viewed and signed by .Av Orellana MD, on 11/26/2016 11:27 .F/
[2016-11-26] MEDS ORDERED: FUROSEMIDE 40 MG INJ IV ONE (12:00)
[2016-11-26] MEDS ORDERED: AMIODARONE 150MG/D5W BOLUS 100 ML IV ONE (16:00)
[2016-11-26] MEDS ORDERED: AMIODARONE 900 MG in DEXTROSE 5% 482 ML IV SCH (16:00)
--- NOTE | 2016-11-26 20:38 | CONS ---
Date/Time of Note Date/Time of Note DATE: 11/26/16 TIME: 20:34 Assessment/Plan Assessment/Plan Additional Assessment/Plan 1. Acute kidney injury on possible previous chronic kidney disease with last creatinine known about 1.48 secondary to acute tubular necrosis from ischemic acute tubular necrosis from cardiogenic shock. 2. Acute respiratory failure from cardiogenic shock, currently intubated on ventilator- failed weaning trial due to pulmonary congestion 3. Acute non-ST elevation myocardial infarction, s/p v tach arrest s/p pci of RCA, possible staged procedure to LCx required s/p IABP, now off 4. History of possible chronic kidney disease secondary to diabetic nephropathy , unknown stage. 5. History of type 2 diabetes mellitus. 6. History of hypertension. Plan: remains intubated, ventilator care as per pulmonary BUN/Cr improving, good urine ouptut, 1.8 liter, d/c IVF due to pulmonary congestion, lasix 40mg IV x 1 given today on Brilinat Post cath will continue to follow up on patient Consultation Date/Type/Reason Admit Date/Time Nov 19, 2016 at 16:09 Initial Consult Date Nov Type of Consultation: NEPHROLOGY Referring Provider: PIO VEGA 24 HR Interval Summary Free Text/Dictation remains intubated on ventilator, Pulmonary congestion Exam/Review of Systems Vital Signs Vitals Vital Signs Date Time Temp Pulse Resp B/P Pulse Ox O2 Delivery O2 Flow Rate FiO2 11/26/16 19:31 103 22 100 30 11/26/16 18:00 87/62 Mechanical Ventilator 11/26/16 16:00 97.9 Intake and Output 11/25/16 11/25/16 11/26/16 15:00 23:00 07:00 Intake Total 1193.831 ml 920.781 ml 923.859 ml Output Total 1125 ml 745 ml 695 ml Balance 68.831 ml 175.781 ml 228.859 ml Exam GENERAL: no acute distress NECK: supple + Et tube LUNGS: Bilateral coarse breath sounds, bibasilar crackles HEART: S1, S2, tachycardia, no murmur. ABDOMEN: Soft, morbidly obese. EXTREMITIES: 1 to 2+ pitting edema. No clubbing, cyanosis. NEUROLOGICAL: Uncooperative for exam PSYCHIATRIC: Not able to assess at this point. Results Result Diagram: 11/26/16 0400 11/26/16 0400 Results 24 hrs Laboratory Tests Test 11/26/16 01:10 11/26/16 04:00 11/26/16 04:53 11/26/16 10:42 Bedside Glucose 136 136 156 White Blood Count 12.0 #H Red Blood Count 3.37 L Hemoglobin 10.1 L Hematocrit 32.4 L Mean Corpuscular Volume 96.1 Mean Corpuscular Hemoglobin 30.0 Mean Corpuscular Hemoglobin Concent 31.2 L Red Cell Distribution Width 14.4 Platelet Count 168 Mean Platelet Volume 11.2 H Neutrophils % 72.0 Lymphocytes % 10.7 L Monocytes % 7.6 Eosinophils % 6.4 Basophils % 0.3 Nucleated Red Blood Cells % 0.0 Neutrophils # 8.7 H Lymphocytes # 1.3 Monocytes # 0.9 Eosinophils # 0.8 H Basophils # 0.0 Nucleated Red Blood Cells # 0.0 Sodium Level 143 Potassium Level 3.6 Chloride Level 109 Carbon Dioxide Level 29 Anion Gap 9 Blood Urea Nitrogen 39 H Creatinine 1.85 H Glucose Level 136 Calcium Level 8.5 Test 11/26/16 13:08 11/26/16 17:29 Bedside Glucose 173 184 Medications Medications Current Medications Aspirin (Halfprin) 81 mg DAILY PO Last administered on 11/26/16 10:44; Admin Dose 81 MG; Start 11/20/16 at 09:00 Ticagrelor 90 mg 90 mg BID PO Last administered on 11/26/16 10:47; Admin Dose 90 MG; Start 11/19/16 at 21:00 Propofol 100 ml @ 3.818 mls/ hr Q12H IV Last administered on 11/26/16 18:09; Admin Dose 22.909 MLS/HR; Start 11/19/16 at 16:30 Fentanyl (Sublimaze) 100 ml @ 2.5 mls/hr TITRATE IV Last administered on 09:09; Admin Dose 5 MLS/HR; Start 11/19/16 at 17:00 Ondansetron HCl (Zofran Inj) 4 mg Q6H PRN IV NAUSEA AND/OR VOMITING; Start 04/27 at 17:00 Acetaminophen (Tylenol Liquid) 650 mg Q6H PRN PO PAIN LEVEL 1-3 OR FEVER; Start 11/19/16 at 17:00 Acetaminophen (Tylenol Supp) 650 mg Q4H PRN [place] PAIN LEVEL 1-3 OR FEVER; Start 11/19/16 at 17:00 Docusate Sodium (Colace) 100 mg Q12H PRN PO CONSTIPATION; Start 11/19/16 at 17: 00 Magnesium Hydroxide (Milk Of Mag) 30 ml DAILY PRN PO CONSTIPATION; Start at 17:00 Bisacodyl (Dulcolax Supp) 10 mg DAILY PRN [place] CONSTIPATION; Start 11/19/16 at 17 :00 Famotidine (Pepcid Iv) 20 mg DAILY IV Last administered on 11/26/16 10:44; Admin Dose 20 MG; Start 11/19/16 at 17:00 Insulin Aspart (Novolog Insulin Pen) NOVOLOG *MODERATE* ALGORI... Q4 SC Last administered on 11/26/16 17:37; Admin Dose 4 UNIT; Start 11/19/16 at 17:30 Miscellaneous Information 1 ea NOTE XX ; Start 11/19/16 at 17:30 Glucose (Glutose) 15 gm Q15M PRN PO DECREASED GLUCOSE; Start 11/19/16 at 17:30 Glucose (Glutose) 22.5 gm Q15M PRN PO DECREASED GLUCOSE; Start 11/19/16 at 17: 30 Dextrose (D50w Syringe) 25 ml Q15M PRN IV DECREASED GLUCOSE; Start 11/19/16 at 17:30 Dextrose (D50w Syringe) 50 ml Q15M PRN IV DECREASED GLUCOSE; Start 11/19/16 at 17:30 Glucagon (Glucagen) 1 mg Q15M PRN IM DECREASED GLUCOSE; Start 11/19/16 at 17:30 Glucose 15 gm 15 gm Q15M PRN BUCCAL DECREASED GLUCOSE; Start 11/19/16 at 17:30 Norepinephrine/ Dextrose (Levophed/D5W) 500 ml @ 1.875 mls/ hr TITRATE IV Last administered on 11/22/16 01:11; Admin Dose 7.5 MLS/HR; Start 11/20/16 at 19:30 Amiodarone HCl (Cordarone) 200 mg DAILY GTB Last administered on 11/26/16 10: 44; Admin Dose 200 MG; Start 11/23/16 at 09:00 Nystatin (Nystatin Susp) 5 ml QID PO Last administered on 11/26/16 17:24; Admin Dose 5 ML; Start 11/24/16 at 10:30 Fluconazole (Diflucan) 100 mg DAILY NGT Last administered on 11/26/16 10:45; Admin Dose 100 MG; Start 11/25/16 at 09:00 Insulin Glargine 18 unit 18 unit DAILY@20 SC Last administered on 11/25/16 20: 32; Admin Dose 18 UNIT; Start 11/24/16 at 20:00 Piperacillin Sod/ Tazobactam Sod (Zosyn 3.375gm/ 100 ml (Pmx)) 100 ml @ 100 mls /hr Q6 IVPB Last administered on 11/26/16 17:23; Admin Dose 100 MLS/HR; Start 11/24/16 at 12:00 Atorvastatin Calcium 10 mg 10 mg HS NGT Last administered on 11/25/16 20:39; Admin Dose 10 MG; Start 11/24/16 at 21:00 Amiodarone HCl/ Dextrose (Cordarone Iv/ D5W) 500 ml @ 0 mls/hr Q0M IV Last administered on 11/26/16 17:23; Admin Dose 33.4 MLS/HR; Start 11/26/16 at 16:00 ; Stop 11/27/16 at 15:59 FÁTIMA PERES MD Nov 26, 2016 20:38
[2016-11-26] MEDS: ATORVASTATIN 10 MG TAB NGT SCH (21:07)
[2016-11-26] MEDS: INSULIN GLARGINE [LANtus] 3 ML PEN SC SCH (21:09)
[2016-11-27] VITALS (46 sets, daily range): BP systolic 75–114; BP diastolic 55–80; PULSE 81–115; RESP 15–27
[2016-11-27] MEDS: INSULIN ASPART [NOVOLOG] 3 ML PEN SC SCH ×6 (00:48→21:06)
[2016-11-27] MEDS: PROPOFOL 100 ML IV SCH ×6 (02:20→23:06)
[2016-11-27] MEDS: FENTAnyl (DRIP) 1000 mcg/100mL 100 ML IV SCH ×2 (03:48→23:02)
[2016-11-27] MEDS: PIPER-TAZO 3.375 GM IV (PMX) 100 ML IVPB SCH ×4 (05:51→23:34)
[2016-11-27 06:39] LABS: ADD SCAN DIFF NO
[2016-11-27 06:50] LABS: BASOPHILS % 0.1 % (0.0-2.0); EOSINOPHILS # 0.8 10^3/ul (0.0-0.5); EOSINOPHILS % 4.7 % (0.0-7.0); HEMATOCRIT 38.1 % (42.0-52.0); HEMOGLOBIN 11.7 g/dl (14.0-18.0); LYMPHOCYTES # 1.4 10^3/ul (0.8-2.9); MEAN CORPUSCULAR HEMOGLOBIN 29.6 pg (29.0-33.0); MEAN CORPUSCULAR HGB CONC 30.7 g/dl (32.0-37.0); MEAN CORPUSCULAR VOLUME 96.5 fl (82.0-101.0); MEAN PLATELET VOLUME 11.3 fl (7.4-10.4); MONOCYTE # 0.7 10^3/ul (0.3-0.9); MONOCYTES % 4.1 % (0.0-11.0); NEUTROPHIL # 14.3 10^3/ul (1.6-7.5); NEUTROPHILS % 80.8 % (39.0-77.0); PLATELET COUNT 198 10^3/UL (140-415); RED BLOOD COUNT 3.95 10^6/ul (4.70-6.10); RED CELL DISTRIBUTION WIDTH 14.7 % (11.5-14.5); WHITE BLOOD COUNT 17.7 10^3/ul (4.8-10.8)
[2016-11-27 07:05] LABS: CALCIUM 8.9 mg/dl (8.4-10.2); CREATININE 1.89 mg/dl (0.61-1.24); POTASSIUM 3.6 mmol/L (3.5-5.1)
--- NOTE | 2016-11-27 08:02 | RADRPT ---
PROCEDURE: XR Chest. CLINICAL INDICATION: CHF TECHNIQUE: An AP view of the chest was obtained. COMPARISON: Chest x-ray dated 11/26/2016 FINDINGS: The endotracheal tube tip is approximately 3.8 cm above the margot. The tip of the enteric tube pr ojects over the left upper quadrant. There is a right internal jugular central venous catheter with tip near the cavoatrial junction. There is prominence of the interstitial and central pulmonary vascular markings with small left ple ural effusion. No pneumothorax is seen. The cardiomediastinal silhouette is mildly enlarged . Ca lcifications are seen within the aortic arch. The osseous structures demonstrate senescent changes. IMPRESSION: 1. Findings suggestive of pulmonary vascular congestion/interstitial edema with small left pleural effusion. No significant interval change. 2. Mild cardiomegaly and aortic atherosclerosis. 3. Tubes and lines, as described above. RPTAT: HH .Florence Torrez MD, MD Date Time Electronically viewed and signed by .Florence Torrez MD, on 11/27/2016 08:02 .Abundio/
[2016-11-27] MEDS: FAMOTIDINE 20 MG INJ IV SCH (09:00)
[2016-11-27] MEDS: AMIODARONE 200 MG TAB GTB SCH (10:08)
[2016-11-27] MEDS: NYSTATIN SUSP 5 ML CUP PO SCH ×4 (10:08→21:02)
[2016-11-27] MEDS: ASPIRIN (EC) 81 MG TAB PO SCH (10:08)
[2016-11-27] MEDS: FLUCONAZOLE 100 MG TAB NGT SCH (10:09)
[2016-11-27] MEDS: TICAGRELOR 90 MG TABLET PO SCH ×2 (10:20→21:04)
[2016-11-27] MEDS ORDERED: VANCOMYCIN IV PER PHARMACY XX SCH (10:30)
--- NOTE | 2016-11-27 10:32 | PN ---
Date/Time of Note Date/Time of Note DATE: 11/27/16 TIME: 10:07 Assessment/Plan VTE Prophylaxis VTE Prophylaxis Intervention: SCD's Lines/Catheters IV Catheter Type (from Nrsg): Central Line Central line still needed: Yes (for IV access ) Urinary Cath still in place: Yes Reason Cath still needed: other (indicate) (NEHA and monitoring UOP ) Assessment/Plan Assessment/Plan 56-year-old male with: 1. ST elevation myocardial infarction with a hemodynamic instability, status post ventricular tachycardia, cardioverted status post angiogram with PCI to the circumflex, Hemodynamically stable but still with significant encephalopathy when on sedation vacation, not ready to extubate, back on sedation. on Fentanyl and Propofol for sedation Dr. Simeon following, on Brilinta and ASA. On po Amio Pulmonary critical care following 2. Acute respiratory failure secondary to cardiogenic shock and ST elevation myocardial infarction. Also with history of chronic obstructive pulmonary disease Intubated and sedated on Fentanyl and Propofol, nor ready for extubation, restless but not following commands. CXR with CHF exacerbation, OFF IVF now and was given Lasix 40 mg IV x1 last night per Nephrology. On Zosyn with Klebsiella and MSSA on sputum cx ad given WBC up and positive MRSA nares, will start Vancomycin too. Pulmonary for Vent management. On tube feedings 3. Acute kidney injury on probable chronic kidney disease, likely secondary to acute tubular necrosis in this situation. Renal function improving slowly and seems to have plateaued currently Repleting electrolytes prn, UOP OK Renal US mostly unremarkable Nephrology, Dr Welch following. 4. Acute ischemic changes b/l toes, now seems better perfused but likely embolic events with angio. Pulses present 5. Shock Liver, with elevated LFTs and coagulopathy currently. Resolved. Avoid hepatotoxic agents 6. Coagulopathy, 2ry to shock liver likely. Monitor, patient did get Vit Kx1. Resolved 7. Diabetes mellitus. His blood sugars are fairly stable. A1c 7.1 Continue sliding scale insulin and will increase Lantus to 20 units, continue SSI while on TF 8. Thrush: on Nystatin and Diflucan 9. Obstructive sleep apnea on CPAP at night as outpatient. 10. Tobacco use. Hopefully the patient will quit after this. Nicotine patch today. Prophylaxis. Pepcid for GI ppx and SCDs. DISPOSITION: Guarded prognosis still and patient remains critical. Not ready to extubate. Subjective 24 Hr Interval Summary Free Text/Dictation Patient still encepalopathic Per report he has a brother in [facility] and also Hx drug use, ? speed On Abx for PNA MRSA nares Exam/Review of Systems Vital Signs Vitals Vital Signs Date Time Temp Pulse Resp B/P Pulse Ox O2 Delivery O2 Flow Rate FiO2 11/27/16 08:00 98.9 93 20 87/71 99 Mechanical Ventilator 11/27/16 05:13 30 Intake and Output 11/26/16 11/26/16 11/27/16 15:00 23:00 07:00 Intake Total 1266.891 ml 971.427 ml 916.6 ml Output Total 1020 ml 1190 ml 400 ml Balance 246.891 ml -218.573 ml 516.6 ml Exam Constitutional: other (sedated and intbated ) Respiratory: diminished breath sounds (bases bilaterally ) Cardiovascular: nl pulses, regular rate and rhythm Gastrointestinal: non-tender, other (tolerating TF ), soft Musculoskeletal: other (tip of toes +/- ischemic unchanged from last week ) Extremities: normal pulses Neurological: other (sedated and intubated ) Results Result Diagram: 11/27/16 0550 11/27/16 0550 Results 24 hrs Laboratory Tests Test 11/26/16 10:42 11/26/16 13:08 11/26/16 17:29 11/26/16 21:06 Bedside Glucose 156 173 184 158 Test 11/27/16 00:46 11/27/16 05:50 11/27/16 05:51 Bedside Glucose 178 150 White Blood Count 17.7 #H Red Blood Count 3.95 L Hemoglobin 11.7 L Hematocrit 38.1 L Mean Corpuscular Volume 96.5 Mean Corpuscular Hemoglobin 29.6 Mean Corpuscular Hemoglobin Concent 30.7 L Red Cell Distribution Width 14.7 H Platelet Count 198 Mean Platelet Volume 11.3 H Neutrophils % 80.8 H Lymphocytes % 8.0 L Monocytes % 4.1 Eosinophils % 4.7 Basophils % 0.1 Nucleated Red Blood Cells % 0.0 Neutrophils # 14.3 H Lymphocytes # 1.4 Monocytes # 0.7 Eosinophils # 0.8 H Basophils # 0.0 Nucleated Red Blood Cells # 0.0 Sodium Level 144 Potassium Level 3.6 Chloride Level 110 Carbon Dioxide Level 25 Anion Gap 13 Blood Urea Nitrogen 38 H Creatinine 1.89 H Glucose Level 149 Calcium Level 8.9 Medications Medications Current Medications Aspirin (Halfprin) 81 mg DAILY PO Last administered on 11/26/16 10:44; Admin Dose 81 MG; Start 11/20/16 at 09:00 Ticagrelor 90 mg 90 mg BID PO Last administered on 11/26/16 21:08; Admin Dose 90 MG; Start 11/19/16 at 21:00 Propofol 100 ml @ 3.818 mls/ hr Q12H IV Last administered on 11/27/16 05:51; Admin Dose 22.909 MLS/HR; Start 11/19/16 at 16:30 Fentanyl (Sublimaze) 100 ml @ 2.5 mls/hr TITRATE IV Last administered on 03:48; Admin Dose 5 MLS/HR; Start 11/19/16 at 17:00 Ondansetron HCl (Zofran Inj) 4 mg Q6H PRN IV NAUSEA AND/OR VOMITING; Start 04/27 at 17:00 Acetaminophen (Tylenol Liquid) 650 mg Q6H PRN PO PAIN LEVEL 1-3 OR FEVER; Start 11/19/16 at 17:00 Acetaminophen (Tylenol Supp) 650 mg Q4H PRN SD PAIN LEVEL 1-3 OR FEVER; Start 11/19/16 at 17:00 Docusate Sodium (Colace) 100 mg Q12H PRN PO CONSTIPATION; Start 11/19/16 at 17: 00 Magnesium Hydroxide (Milk Of Mag) 30 ml DAILY PRN PO CONSTIPATION; Start at 17:00 Bisacodyl (Dulcolax Supp) 10 mg DAILY PRN SD CONSTIPATION; Start 11/19/16 at 17 :00 Famotidine (Pepcid Iv) 20 mg DAILY IV Last administered on 11/26/16 10:44; Admin Dose 20 MG; Start 11/19/16 at 17:00 Insulin Aspart (Novolog Insulin Pen) NOVOLOG *MODERATE* ALGORI... Q4 SC Last administered on 11/27/16 05:57; Admin Dose 2 UNIT; Start 11/19/16 at 17:30 Miscellaneous Information 1 ea NOTE XX ; Start 11/19/16 at 17:30 Glucose (Glutose) 15 gm Q15M PRN PO DECREASED GLUCOSE; Start 11/19/16 at 17:30 Glucose (Glutose) 22.5 gm Q15M PRN PO DECREASED GLUCOSE; Start 11/19/16 at 17: 30 Dextrose (D50w Syringe) 25 ml Q15M PRN IV DECREASED GLUCOSE; Start 11/19/16 at 17:30 Dextrose (D50w Syringe) 50 ml Q15M PRN IV DECREASED GLUCOSE; Start 11/19/16 at 17:30 Glucagon (Glucagen) 1 mg Q15M PRN IM DECREASED GLUCOSE; Start 11/19/16 at 17:30 Glucose 15 gm 15 gm Q15M PRN BUCCAL DECREASED GLUCOSE; Start 11/19/16 at 17:30 Norepinephrine/ Dextrose (Levophed/D5W) 500 ml @ 1.875 mls/ hr TITRATE IV Last administered on 11/22/16 01:11; Admin Dose 7.5 MLS/HR; Start 11/20/16 at 19:30 Amiodarone HCl (Cordarone) 200 mg DAILY GTB Last administered on 11/26/16 10: 44; Admin Dose 200 MG; Start 11/23/16 at 09:00 Nystatin (Nystatin Susp) 5 ml QID PO Last administered on 11/26/16 21:07; Admin Dose 5 ML; Start 11/24/16 at 10:30 Fluconazole (Diflucan) 100 mg DAILY NGT Last administered on 11/26/16 10:45; Admin Dose 100 MG; Start 11/25/16 at 09:00 Insulin Glargine 18 unit 18 unit DAILY@20 SC Last administered on 11/26/16 21: 09; Admin Dose 18 UNIT; Start 11/24/16 at 20:00 Piperacillin Sod/ Tazobactam Sod (Zosyn 3.375gm/ 100 ml (Pmx)) 100 ml @ 100 mls /hr Q6 IVPB Last administered on 11/27/16 05:51; Admin Dose 100 MLS/HR; Start 11/24/16 at 12:00 Atorvastatin Calcium 10 mg 10 mg HS NGT Last administered on 11/26/16 21:07; Admin Dose 10 MG; Start 11/24/16 at 21:00 Amiodarone HCl/ Dextrose (Cordarone Iv/ D5W) 500 ml @ 0 mls/hr Q0M IV Last administered on 11/26/16t 17:23; Admin Dose 33.4 MLS/HR; Start 11/26/16 at 16:00 ; Stop 11/27/16 at 15:59 Mupirocin (Bactroban) 1 applic BID TOP ; Start 11/27/16 at 09:30 Procedures Procedures PROCEDURE: XR Chest. CLINICAL INDICATION: CHF TECHNIQUE: An AP view of the chest was obtained. COMPARISON: Chest x-ray dated 11/26/2016 FINDINGS: The endotracheal tube tip is approximately 3.8 cm above the margot. The tip of the enteric tube projects over the left upper quadrant. There is a right internal jugular central venous catheter with tip near the cavoatrial junction. There is prominence of the interstitial and central pulmonary vascular markings with small left pleural effusion. No pneumothorax is seen. The cardiomediastinal silhouette is mildly enlarged . Calcifications are seen within the aortic arch. The osseous structures demonstrate senescent changes. IMPRESSION: 1. Findings suggestive of pulmonary vascular congestion/interstitial edema with small left pleural effusion. No significant interval change. 2. Mild cardiomegaly and aortic atherosclerosis. 3. Tubes and lines, as described above. PIO VEGA Nov 27, 2016 10:19
[2016-11-27] MEDS: MUPIROCIN 2% 22 GM OINT TOP SCH ×2 (11:14→21:06)
[2016-11-27] MEDS ORDERED: VANCOMYCIN 2 GM in SOD CHLORIDE 0.9% 500 ML IVPB SCH (11:30)
--- NOTE | 2016-11-27 11:37 | CONS ---
Date/Time of Note Date/Time of Note DATE: 11/27/16 TIME: 11:33 Assessment/Plan Assessment/Plan Additional Assessment/Plan Chest x-ray was reviewed from today which is essentially clear. Mild cardiomegaly is present. Endotracheal tube is at an adequate level. Ventilator setting; AC of 20, tidal volume 500, PEEP of 7, 30% FiO2. Patient currently on fentanyl drip at 50 mics per hour, propofol at 3 mics per kilogram per minute. Amiodarone 0.5 mg/min. Assessment recommendations; 1. Patient admitted with cardiac arrest status post emergent coronary angiography with stenting of circumflex lesion. 2. Likely anoxic brain injury. 3. Renal insufficiency. 4. Diabetes. 5. 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 6. Failure to be weaned off ventilator despite multiple attempts. 7. Left lower lobe pneumonia with marked radiological improvement. Continue current supportive care. Prognosis is guarded. 35 minutes of critical care time was spent evaluating the patient. Consultation Date/Type/Reason Admit Date/Time Nov 19, 2016 at 16:09 Type of Consultation: Pulmonary/critical care Referring Provider: PIO VEGA 24 HR Interval Summary Free Text/Dictation Patient condition remains tenuous at best. Patient has been unable to handle weaning from sedation because of severe agitation. Patient has been given multiple sedation vacation trials. Currently the patient is again sedated and does not appear to be in any distress. Orally intubated. No untoward events reported. Exam/Review of Systems Vital Signs Vitals Vital Signs Date Time Temp Pulse Resp B/P Pulse Ox O2 Delivery O2 Flow Rate FiO2 11/27/16 08:00 98.9 93 20 87/71 99 Mechanical Ventilator 11/27/16 05:13 30 Intake and Output 11/26/16 11/26/16 11/27/16 15:00 23:00 07:00 Intake Total 1266.891 ml 971.427 ml 916.6 ml Output Total 1020 ml 1190 ml 400 ml Balance 246.891 ml -218.573 ml 516.6 ml Exam HEENT exam; supple neck, no JVD. No lymphadenopathy. Midline trachea. No thyromegaly. Orally intubated. Patient is edentulous. Nipples are small bilaterally. Chest examination; clear to ulceration. S1-S2 audible, no murmurs. Regular rhythm. Abdomen examination; soft, no organomegaly. Bowel sounds are audible. Extremity examination; no peripheral edema. Patient does have gangrene involving toes bilaterally. Dorsalis pedis pulses are 2+ bilaterally. OPTICAL FABRICATOR examination; patient is sedated. Results Result Diagram: 11/27/16 0550 11/27/16 0550 Results 24 hrs Laboratory Tests Test 11/26/16 13:08 11/26/16 17:29 11/26/16 21:06 11/27/16 00:46 Bedside Glucose 173 184 158 178 Test 11/27/16 05:50 11/27/16 05:51 11/27/16 10:07 White Blood Count 17.7 #H Red Blood Count 3.95 L Hemoglobin 11.7 L Hematocrit 38.1 L Mean Corpuscular Volume 96.5 Mean Corpuscular Hemoglobin 29.6 Mean Corpuscular Hemoglobin Concent 30.7 L Red Cell Distribution Width 14.7 H Platelet Count 198 Mean Platelet Volume 11.3 H Neutrophils % 80.8 H Lymphocytes % 8.0 L Monocytes % 4.1 Eosinophils % 4.7 Basophils % 0.1 Nucleated Red Blood Cells % 0.0 Neutrophils # 14.3 H Lymphocytes # 1.4 Monocytes # 0.7 Eosinophils # 0.8 H Basophils # 0.0 Nucleated Red Blood Cells # 0.0 Sodium Level 144 Potassium Level 3.6 Chloride Level 110 Carbon Dioxide Level 25 Anion Gap 13 Blood Urea Nitrogen 38 H Creatinine 1.89 H Glucose Level 149 Calcium Level 8.9 Bedside Glucose 150 126 Medications Medications Current Medications Aspirin (Halfprin) 81 mg DAILY PO Last administered on 11/27/16 10:08; Admin Dose 81 MG; Start 11/20/16 at 09:00 Ticagrelor 90 mg 90 mg BID PO Last administered on 11/27/16 10:20; Admin Dose 90 MG; Start 11/19/16 at 21:00 Propofol 100 ml @ 3.818 mls/ hr Q12H IV Last administered on 11/27/16 10:55; Admin Dose 22.909 MLS/HR; Start 11/19/16 at 16:30 Fentanyl (Sublimaze) 100 ml @ 2.5 mls/hr TITRATE IV Last administered on 03:48; Admin Dose 5 MLS/HR; Start 11/19/16 at 17:00 Ondansetron HCl (Zofran Inj) 4 mg Q6H PRN IV NAUSEA AND/OR VOMITING; Start 04/27 at 17:00 Acetaminophen (Tylenol Liquid) 650 mg Q6H PRN PO PAIN LEVEL 1-3 OR FEVER; Start 11/19/16 at 17:00 Acetaminophen (Tylenol Supp) 650 mg Q4H PRN CO PAIN LEVEL 1-3 OR FEVER; Start 11/19/16 at 17:00 Docusate Sodium (Colace) 100 mg Q12H PRN PO CONSTIPATION; Start 11/19/16 at 17: 00 Magnesium Hydroxide (Milk Of Mag) 30 ml DAILY PRN PO CONSTIPATION; Start at 17:00 Bisacodyl (Dulcolax Supp) 10 mg DAILY PRN CO CONSTIPATION; Start 11/19/16 at 17 :00 Famotidine (Pepcid Iv) 20 mg DAILY IV Last administered on 11/27/16 09:00; Admin Dose 20 MG; Start 11/19/16 at 17:00 Insulin Aspart (Novolog Insulin Pen) NOVOLOG *MODERATE* ALGORI... Q4 SC Last administered on 11/27/16 05:57; Admin Dose 2 UNIT; Start 11/19/16 at 17:30 Miscellaneous Information 1 ea NOTE XX ; Start 11/19/16 at 17:30 Glucose (Glutose) 15 gm Q15M PRN PO DECREASED GLUCOSE; Start 11/19/16 at 17:30 Glucose (Glutose) 22.5 gm Q15M PRN PO DECREASED GLUCOSE; Start 11/19/16 at 17: 30 Dextrose (D50w Syringe) 25 ml Q15M PRN IV DECREASED GLUCOSE; Start 11/19/16 at 17:30 Dextrose (D50w Syringe) 50 ml Q15M PRN IV DECREASED GLUCOSE; Start 11/19/16 at 17:30 Glucagon (Glucagen) 1 mg Q15M PRN IM DECREASED GLUCOSE; Start 11/19/16 at 17:30 Glucose 15 gm 15 gm Q15M PRN BUCCAL DECREASED GLUCOSE; Start 11/19/16 at 17:30 Norepinephrine/ Dextrose (Levophed/D5W) 500 ml @ 1.875 mls/ hr TITRATE IV Last administered on 11/22/16 01:11; Admin Dose 7.5 MLS/HR; Start 11/20/16 at 19:30 Amiodarone HCl (Cordarone) 200 mg DAILY GTB Last administered on 11/27/16 10: 08; Admin Dose 200 MG; Start 11/23/16 at 09:00 Nystatin (Nystatin Susp) 5 ml QID PO Last administered on 11/27/16 10:08; Admin Dose 5 ML; Start 11/24/16 at 10:30 Fluconazole 100 mg 100 mg DAILY NGT Last administered on 11/27/16 10:09; Admin Dose 100 MG; Start 11/25/16 at 09:00 Piperacillin Sod/ Tazobactam Sod (Zosyn 3.375gm/ 100 ml (Pmx)) 100 ml @ 100 mls /hr Q6 IVPB Last administered on 11/27/16 11:18; Admin Dose 100 MLS/HR; Start 11/24/16 at 12:00 Atorvastatin Calcium 10 mg 10 mg HS NGT Last administered on 11/26/16 21:07; Admin Dose 10 MG; Start 11/24/16 at 21:00 Amiodarone HCl/ Dextrose (Cordarone Iv/ D5W) 500 ml @ 0 mls/hr Q0M IV Last administered on 11/26/16 17:23; Admin Dose 33.4 MLS/HR; Start 11/26/16 at 16:00 ; Stop 11/27/16 at 15:59 Mupirocin (Bactroban) 1 applic BID TOP Last administered on 11/27/16 11:14; Admin Dose 1 APPLIC; Start 11/27/16 at 09:30 Insulin Glargine 20 unit 20 unit DAILY@20 SC ; Start 11/27/16 at 20:00 Vancomycin HCl/ Sodium Chloride (Vancocin/NS) 500 ml @ 125 mls/hr NOW IVPB ; Start 11/27/16 at 11:30; Stop 11/27/16 at 18:00 ELEONORA LEWIS Nov 27, 2016 11:37
--- NOTE | 2016-11-27 17:33 | CONS ---
Date/Time of Note Date/Time of Note DATE: 11/27/16 TIME: 17:31 Assessment/Plan Assessment/Plan Additional Assessment/Plan 1. Acute kidney injury on possible previous chronic kidney disease with last creatinine known about 1.48 secondary to acute tubular necrosis from ischemic acute tubular necrosis from cardiogenic shock. 2. Acute respiratory failure from cardiogenic shock, currently intubated on ventilator- failed weaning trial due to pulmonary congestion 3. Acute non-ST elevation myocardial infarction, s/p v tach arrest s/p pci of RCA, possible staged procedure to LCx required s/p IABP, now off 4. History of possible chronic kidney disease secondary to diabetic nephropathy , unknown stage. 5. History of type 2 diabetes mellitus. 6. History of hypertension. Plan: remains intubated, ventilator care as per pulmonary BUN/Cr improving, good urine ouptut, 1.8 liter, s/p IV lasix 40mg X 1 yesterday free water flush 50cc Q 6 hr on Brilinat Post cath will continue to follow up on patient Consultation Date/Type/Reason Admit Date/Time Nov 19, 2016 at 16:09 Initial Consult Date Nov Type of Consultation: NEPHROLOGY Referring Provider: PIO VEGA 24 HR Interval Summary Free Text/Dictation Cr 1.89, BP stable, Na normal, On Tube feeding free water flush Exam/Review of Systems Vital Signs Vitals Vital Signs Date Time Temp Pulse Resp B/P Pulse Ox O2 Delivery O2 Flow Rate FiO2 11/27/16 16:00 95 11/27/16 16:00 98.6 15 102/80 99 Mechanical Ventilator 11/27/16 12:00 30 Intake and Output 11/26/16 11/26/16 11/27/16 14:59 22:59 06:59 Intake Total 1267.250 ml 1027.227 ml 870.0 ml Output Total 770 ml 1365 ml 475 ml Balance 497.250 ml -337.773 ml 395.0 ml Exam GENERAL: no acute distress NECK: supple + Et tube LUNGS: Bilateral coarse breath sounds, bibasilar crackles HEART: S1, S2, tachycardia, no murmur. ABDOMEN: Soft, morbidly obese. EXTREMITIES: 1 to 2+ pitting edema. No clubbing, cyanosis. NEUROLOGICAL: Uncooperative for exam PSYCHIATRIC: Not able to assess at this point. Results Result Diagram: 11/27/16 0550 11/27/16 0550 Results 24 hrs Laboratory Tests Test 11/26/16 21:06 11/27/16 00:46 11/27/16 05:50 11/27/16 05:51 Bedside Glucose 158 178 150 White Blood Count 17.7 #H Red Blood Count 3.95 L Hemoglobin 11.7 L Hematocrit 38.1 L Mean Corpuscular Volume 96.5 Mean Corpuscular Hemoglobin 29.6 Mean Corpuscular Hemoglobin Concent 30.7 L Red Cell Distribution Width 14.7 H Platelet Count 198 Mean Platelet Volume 11.3 H Neutrophils % 80.8 H Lymphocytes % 8.0 L Monocytes % 4.1 Eosinophils % 4.7 Basophils % 0.1 Nucleated Red Blood Cells % 0.0 Neutrophils # 14.3 H Lymphocytes # 1.4 Monocytes # 0.7 Eosinophils # 0.8 H Basophils # 0.0 Nucleated Red Blood Cells # 0.0 Sodium Level 144 Potassium Level 3.6 Chloride Level 110 Carbon Dioxide Level 25 Anion Gap 13 Blood Urea Nitrogen 38 H Creatinine 1.89 H Glucose Level 149 Calcium Level 8.9 Test 11/27/16 10:07 11/27/16 13:08 Bedside Glucose 126 155 Medications Medications Current Medications Aspirin (Halfprin) 81 mg DAILY PO Last administered on 11/27/16 10:08; Admin Dose 81 MG; Start 11/20/16 at 09:00 Ticagrelor 90 mg 90 mg BID PO Last administered on 11/27/16 10:20; Admin Dose 90 MG; Start 11/19/16 at 21:00 Propofol 100 ml @ 3.818 mls/ hr Q12H IV Last administered on 11/27/16 15:11; Admin Dose 22.909 MLS/HR; Start 11/19/16 at 16:30 Fentanyl (Sublimaze) 100 ml @ 2.5 mls/hr TITRATE IV Last administered on 03:48; Admin Dose 5 MLS/HR; Start 11/19/16 at 17:00 Ondansetron HCl (Zofran Inj) 4 mg Q6H PRN IV NAUSEA AND/OR VOMITING; Start 04/27 at 17:00 Acetaminophen (Tylenol Liquid) 650 mg Q6H PRN PO PAIN LEVEL 1-3 OR FEVER; Start 11/19/16 at 17:00 Acetaminophen (Tylenol Supp) 650 mg Q4H PRN SC PAIN LEVEL 1-3 OR FEVER; Start 11/19/16 at 17:00 Docusate Sodium (Colace) 100 mg Q12H PRN PO CONSTIPATION; Start 11/19/16 at 17: 00 Magnesium Hydroxide (Milk Of Mag) 30 ml DAILY PRN PO CONSTIPATION; Start at 17:00 Bisacodyl (Dulcolax Supp) 10 mg DAILY PRN SC CONSTIPATION; Start 11/19/16 at 17 :00 Famotidine (Pepcid Iv) 20 mg DAILY IV Last administered on 11/27/16 09:00; Admin Dose 20 MG; Start 11/19/16 at 17:00 Insulin Aspart (Novolog Insulin Pen) NOVOLOG *MODERATE* ALGORI... Q4 SC Last administered on 11/27/16 13:24; Admin Dose 2 UNIT; Start 11/19/16 at 17:30 Miscellaneous Information 1 ea NOTE XX ; Start 11/19/16 at 17:30 Glucose (Glutose) 15 gm Q15M PRN PO DECREASED GLUCOSE; Start 11/19/16 at 17:30 Glucose (Glutose) 22.5 gm Q15M PRN PO DECREASED GLUCOSE; Start 11/19/16 at 17: 30 Dextrose (D50w Syringe) 25 ml Q15M PRN IV DECREASED GLUCOSE; Start 11/19/16 at 17:30 Dextrose (D50w Syringe) 50 ml Q15M PRN IV DECREASED GLUCOSE; Start 11/19/16 at 17:30 Glucagon (Glucagen) 1 mg Q15M PRN IM DECREASED GLUCOSE; Start 11/19/16 at 17:30 Glucose 15 gm 15 gm Q15M PRN BUCCAL DECREASED GLUCOSE; Start 11/19/16 at 17:30 Norepinephrine/ Dextrose (Levophed/D5W) 500 ml @ 1.875 mls/ hr TITRATE IV Last administered on 11/22/16 01:11; Admin Dose 7.5 MLS/HR; Start 11/20/16 at 19:30 Amiodarone HCl (Cordarone) 200 mg DAILY GTB Last administered on 11/27/16 10: 08; Admin Dose 200 MG; Start 11/23/16 at 09:00 Nystatin (Nystatin Susp) 5 ml QID PO Last administered on 11/27/16 13:09; Admin Dose 5 ML; Start 11/24/16 at 10:30 Fluconazole 100 mg 100 mg DAILY NGT Last administered on 11/27/16 10:09; Admin Dose 100 MG; Start 11/25/16 at 09:00 Piperacillin Sod/ Tazobactam Sod (Zosyn 3.375gm/ 100 ml (Pmx)) 100 ml @ 100 mls /hr Q6 IVPB Last administered on 11/27/16 11:18; Admin Dose 100 MLS/HR; Start 11/24/16 at 12:00 Atorvastatin Calcium (Lipitor) 10 mg HS NGT Last administered on 11/26/16 21: 07; Admin Dose 10 MG; Start 11/24/16 at 21:00 Mupirocin (Bactroban) 1 applic BID TOP Last administered on 11/27/16 11:14; Admin Dose 1 APPLIC; Start 11/27/16 at 09:30 Insulin Glargine 20 unit 20 unit DAILY@20 SC ; Start 11/27/16 at 20:00 Vancomycin HCl/ Sodium Chloride (Vancocin/NS) 500 ml @ 125 mls/hr NOW IVPB Last administered on 11/27/16 13:09; Admin Dose 125 MLS/HR; Start 11/27/16 at 11:30; Stop 11/27/16 at 18:00 FÁTIMA PERES MD Nov 27, 2016 17:32
[2016-11-27] MEDS ORDERED: POTASSIUM CHLORIDE 20 MEQ POWDER FOR ORAL SOLN NGT STA ×2 (18:33→20:55)
--- NOTE | 2016-11-27 19:11 | PN ---
DATE: 11/27/2016 CARDIOLOGY FOLLOWUP NOTE/CRITICAL CARE NOTE SUBJECTIVE: Discussed with the staff. Rhythm strip was reviewed. The patient had converted back t o atrial fibrillation since yesterday. He remains in atrial fibrillation. Heart rate under good co ntrol, though. He has been on amiodarone drip, but still continues in atrial fibrillation. The pat ient remains nonverbal. According to the staff, ____ sedation vacation, he has been encephalopathic . Has not been responding. MEDICATIONS: Reviewed. PHYSICAL EXAMINATION: VITAL SIGNS: Temperature 98.6, heart rate of 91, blood pressure 102/80, respiratory rate of 15. HEENT: Normocephalic, atraumatic. Eyes: Pupils are equal. CARDIOVASCULAR: Irregularly irregular. PULMONARY: Anteriorly with no wheezes heard. GASTROINTESTINAL: Soft. EXTREMITIES: Positive lower extremity edema. NEUROLOGIC: Does not respond to verbal stimuli. DERMATOLOGIC: With necrosis of the toes. LABORATORY DATA: Sodium 144, potassium 3.6, BUN of 30, creatinine 0.89, glucose 149. WBC of 17.7, hemoglobin 11.7, platelet 198. Chest x-ray was personally reviewed as well, which showed pulmonary vascular congestion/edema, left pleural effusion. ASSESSMENT AND PLAN: 1. Status post ventricular tachycardia/cardiopulmonary arrest. 2. ST elevation myocardial infarction, status post percutaneous coronary intervention of the circum flex artery/obtuse marginal. 3. Hypoxemic respiratory failure, status post intubation on the ventilator. 4. Encephalopathy. 5. Pneumonia. 6. Congestive heart failure and fluid overload. 7. Renal failure, probably acute on chronic, currently is improving. 8. Peripheral vascular disease and ischemic toes. 9. Shock liver, which has improved. 10. Coagulopathy and elevated INR, has improved now. 11. Paroxysmal atrial fibrillation. RECOMMENDATIONS: I started the patient on low dose of propranolol. Continue with ____ as per inter nal medicine. Statin will be continued. We will check the liver enzymes. Continue with the p.o. a miodarone. Will order a head CT to rule out any bleed or any other intracranial abnormalities. Asp irin and Brilinta will be continued at the current dose. Continue with the ICU care and vent suppor t. Code status still FULL CODE. Continue with the ICU care. More than 40 minutes of critical care time was spent managing this patient excluding procedures. Dictated By: SERENA CENTENO/JUANY NAQVI: 11/27/2016 18:39:53 Conf#: [id number] DID#: [id number] CC: PIO VEGA MD;*End*
[2016-11-27] MEDS: PROPRANOLOL 10 MG TAB PO SCH (21:00)
[2016-11-27] MEDS: INSULIN GLARGINE [LANtus] 3 ML PEN SC SCH (21:05)
[2016-11-27] MEDS: ATORVASTATIN 10 MG TAB NGT SCH (21:06)
[2016-11-28] VITALS (56 sets, daily range): BP systolic 76–119; BP diastolic 50–93; PULSE 60–107; RESP 0–25
--- NOTE | 2016-11-28 00:24 | RADRPT ---
PROCEDURE: CT brain without contrast CLINICAL INDICATION: Weakness. Encephalopathy TECHNIQUE: A CT of the brain was performed utilizing axial sections from the skull base through th e vertex without contrast. Sagittal and coronal images were also reformatted. The exam CTDIvol = 43. 05 mGy and DLP = 900.28 mGy-cm. COMPARISON: None available FINDINGS: No acute intracranial hemorrhage is identified. There is no mass effect or midline shift. No extra -axial fluid collection is seen. The ventricles and sulci are larger in size and configuration for the patient's provided age of 56 years consistent with advanced generalized atrophy. 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 Whitney-white differentiation is preser linn with no findings to suggest an acute ischemic infarct. The fourth ventricle is midline and there is no density alteration within the brenda or cerebellum. The osseous structures are unremarkable. To opacification of the right maxillary sinus is present w ith almost complete opacification of the left sphenoid sinus. Note is made of an endotracheal tube and orogastric tube RPTAT:HJJR IMPRESSION: 1. 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 2. No evidence of intracranial hemorrhage or hydrocephalous. 3. Left sphenoid and right maxillary sinusitis. 4. Endotracheal and orogastric intubation. Physician Nicole Date Time Electronically viewed and signed by Physician Nicole on 11/28/2016 00:23 JR/
[2016-11-28] MEDS: INSULIN ASPART [NOVOLOG] 3 ML PEN SC SCH ×6 (00:48→20:06)
[2016-11-28] MEDS: PROPOFOL 100 ML IV SCH ×5 (05:00→21:20)
[2016-11-28 06:02] LABS: INR 1.12; MAGNESIUM 2.1 mg/dl (1.7-2.5); PARTIAL THROMBOPLASTIN TIME 27.1 Sec (25.0-35.0); PHOSPHORUS 3.4 mg/dl (2.5-4.9); PROTIME 14.4 Sec (12.2-14.2); PT RATIO 1.1
[2016-11-28 06:02] LABS: INR 1.13; PROTIME 14.5 Sec (12.2-14.2); PT RATIO 1.1
[2016-11-28] MEDS: PIPER-TAZO 3.375 GM IV (PMX) 100 ML IVPB SCH ×3 (06:04→17:08)
[2016-11-28 06:13] LABS: ALBUMIN 2.9 g/dl (3.3-4.9); ALBUMIN/GLOBULIN RATIO 0.96; BILIRUBIN,INDIRECT 0.3 mg/dl (0-1.1); BILIRUBIN,TOTAL 0.3 mg/dl (0.2-1.3); CALCIUM 8.8 mg/dl (8.4-10.2); CREATININE 2.01 mg/dl (0.61-1.24); TOTAL PROTEIN 5.9 g/dl (6.1-8.1)
[2016-11-28 06:19] LABS: ADD SCAN DIFF NO
[2016-11-28 07:49] LABS: BASOPHIL # 0.1 10^3/ul (0.0-0.1); BASOPHILS % 0.3 % (0.0-2.0); EOSINOPHILS # 0.8 10^3/ul (0.0-0.5); EOSINOPHILS % 4.3 % (0.0-7.0); HEMATOCRIT 39.8 % (42.0-52.0); HEMOGLOBIN 12.4 g/dl (14.0-18.0); LYMPHOCYTES # 1.9 10^3/ul (0.8-2.9); LYMPHOCYTES % 9.8 % (15.0-51.0); MEAN CORPUSCULAR HEMOGLOBIN 30.2 pg (29.0-33.0); MEAN CORPUSCULAR HGB CONC 31.2 g/dl (32.0-37.0); MEAN CORPUSCULAR VOLUME 96.8 fl (82.0-101.0); MEAN PLATELET VOLUME 11.9 fl (7.4-10.4); MONOCYTE # 0.8 10^3/ul (0.3-0.9); MONOCYTES % 3.9 % (0.0-11.0); NEUTROPHIL # 15.5 10^3/ul (1.6-7.5); NEUTROPHILS % 79.4 % (39.0-77.0); PLATELET COUNT 199 10^3/UL (140-415); RED BLOOD COUNT 4.11 10^6/ul (4.70-6.10); RED CELL DISTRIBUTION WIDTH 14.9 % (11.5-14.5); WHITE BLOOD COUNT 19.5 10^3/ul (4.8-10.8)
--- NOTE | 2016-11-28 08:35 | CONS ---
Date/Time of Note Date/Time of Note DATE: 11/28/16 TIME: 08:32 Assessment/Plan Assessment/Plan Additional Assessment/Plan Ventilator setting; AC of 20, tidal volume 500, PEEP of 7, 30% FiO2. Patient currently on fentanyl drip at 50 mics per hour, will follow at 30 mics per kilogram per minute. Assessment recommendations; 1. P patient admitted with cardiac arrest status post emergent coronary angiographic with stenting of circumflex lesion. 2. Patient likely suffered significant anoxic brain injury. Has been unable to be weaned from ventilator due to severe agitation whenever taken off sedation. 3. Mild CHF. 4. Left lower lobe pneumonia with significant radiological improvement. 5. Mild increase in serum creatinine. 6. History of diabetes hypertension. Continue current supportive care. Prognosis is guarded and is dependent upon adequate mental status recovery. Consultation Date/Type/Reason Admit Date/Time Nov 19, 2016 at 16:09 Type of Consultation: Pulmonary/critical care Referring Provider: PIO VEGA 24 HR Interval Summary Free Text/Dictation Patient's condition remains critical. Still on full ventilator support. Patient has failed multiple weaning trials due to severe agitation whenever taken off sedation. Patient however has remained hemodynamically stable. No untoward events reported. General exam; middle-aged male, on ventilator via endotracheal tube. Sedated. Currently in no distress. Exam/Review of Systems Vital Signs Vitals Vital Signs Date Time Temp Pulse Resp B/P Pulse Ox O2 Delivery O2 Flow Rate FiO2 11/28/16 08:00 91 21 99/69 100 Mechanical Ventilator 11/28/16 07:30 97.7 11/28/16 05:40 30 Intake and Output 11/27/16 11/27/16 11/28/16 15:00 23:00 07:00 Intake Total 1078.8 ml 887.260 ml 673.362 ml Output Total 380 ml 570 ml 340 ml Balance 698.8 ml 317.260 ml 333.362 ml Exam HEENT examination; supple neck, no JVD. No lymphadenopathy. Midline trachea. No thyromegaly. Orally intubated. Patient is edentulous. Pupils are small bilaterally. Chest examined; diminished but clear vessel. S1-S2 audible, no murmurs. Regular rhythm. Abdomen examination; soft, no organomegaly. Bowel sounds audible. Extremity exam; trace peripheral edema. SILVERWARE WASHER examination; patient is sedated. Results Result Diagram: 11/28/16 0340 11/28/16 0500 Results 24 hrs Laboratory Tests Test 11/27/16 10:07 11/27/16 13:08 11/27/16 18:07 11/27/16 20:51 Bedside Glucose 126 155 136 151 Test 11/28/16 00:48 11/28/16 03:40 11/28/16 05:00 11/28/16 05:25 Bedside Glucose 136 136 White Blood Count 19.5 H Red Blood Count 4.11 L Hemoglobin 12.4 L Hematocrit 39.8 L Mean Corpuscular Volume 96.8 Mean Corpuscular Hemoglobin 30.2 Mean Corpuscular Hemoglobin Concent 31.2 L Red Cell Distribution Width 14.9 H Platelet Count 199 Mean Platelet Volume 11.9 H Neutrophils % 79.4 H Lymphocytes % 9.8 L Monocytes % 3.9 Eosinophils % 4.3 Basophils % 0.3 Nucleated Red Blood Cells % 0.0 Neutrophils # 15.5 H Lymphocytes # 1.9 Monocytes # 0.8 Eosinophils # 0.8 H Basophils # 0.1 Nucleated Red Blood Cells # 0.0 Prothrombin Time 14.4 H Prothrombin Time Ratio 1.1 INR International Normalized Ratio 1.12 Activated Partial Thromboplast Time 27.1 Sodium Level 142 Potassium Level 4.0 Chloride Level 109 Carbon Dioxide Level 24 Anion Gap 13 Blood Urea Nitrogen 43 H Creatinine 2.01 H Glucose Level 150 Calcium Level 8.8 Phosphorus Level 3.4 Magnesium Level 2.1 Total Bilirubin 0.3 Direct Bilirubin 0.00 Indirect Bilirubin 0.3 Aspartate Amino Transf (AST/SGOT) 43 Alanine Aminotransferase (ALT/SGPT) 209 H Alkaline Phosphatase 137 H B-Type Natriuretic Peptide 5940 H Total Protein 5.9 L Albumin 2.9 L Globulin 3.00 Albumin/Globulin Ratio 0.96 Digoxin Level < 0.4 L Test 11/28/16 06:00 Prothrombin Time 14.5 H Prothrombin Time Ratio 1.1 INR International Normalized Ratio 1.13 Medications Medications Current Medications Aspirin (Halfprin) 81 mg DAILY PO Last administered on 11/27/16 10:08; Admin Dose 81 MG; Start 11/20/16 at 09:00 Ticagrelor 90 mg 90 mg BID PO Last administered on 11/27/16 21:04; Admin Dose 90 MG; Start 11/19/16 at 21:00 Propofol 100 ml @ 3.818 mls/ hr Q12H IV Last administered on 11/28/16 05:00; Admin Dose 22.909 MLS/HR; Start 11/19/16 at 16:30 Fentanyl (Sublimaze) 100 ml @ 2.5 mls/hr TITRATE IV Last administered on 23:02; Admin Dose 5 MLS/HR; Start 11/19/16 at 17:00 Ondansetron HCl (Zofran Inj) 4 mg Q6H PRN IV NAUSEA AND/OR VOMITING; Start 04/27 at 17:00 Acetaminophen (Tylenol Liquid) 650 mg Q6H PRN PO PAIN LEVEL 1-3 OR FEVER; Start 11/19/16 at 17:00 Acetaminophen (Tylenol Supp) 650 mg Q4H PRN DC PAIN LEVEL 1-3 OR FEVER; Start 11/19/16 at 17:00 Docusate Sodium (Colace) 100 mg Q12H PRN PO CONSTIPATION; Start 11/19/16 at 17: 00 Magnesium Hydroxide (Milk Of Mag) 30 ml DAILY PRN PO CONSTIPATION; Start at 17:00 Bisacodyl (Dulcolax Supp) 10 mg DAILY PRN DC CONSTIPATION; Start 11/19/16 at 17 :00 Famotidine (Pepcid Iv) 20 mg DAILY IV Last administered on 11/27/16 09:00; Admin Dose 20 MG; Start 11/19/16 at 17:00 Insulin Aspart (Novolog Insulin Pen) NOVOLOG *MODERATE* ALGORI... Q4 SC Last administered on 11/27/16 21:06; Admin Dose 2 UNIT; Start 11/19/16 at 17:30 Miscellaneous Information 1 ea NOTE XX ; Start 11/19/16 at 17:30 Glucose (Glutose) 15 gm Q15M PRN PO DECREASED GLUCOSE; Start 11/19/16 at 17:30 Glucose (Glutose) 22.5 gm Q15M PRN PO DECREASED GLUCOSE; Start 11/19/16 at 17: 30 Dextrose (D50w Syringe) 25 ml Q15M PRN IV DECREASED GLUCOSE; Start 11/19/16 at 17:30 Dextrose (D50w Syringe) 50 ml Q15M PRN IV DECREASED GLUCOSE; Start 11/19/16 at 17:30 Glucagon (Glucagen) 1 mg Q15M PRN IM DECREASED GLUCOSE; Start 11/19/16 at 17:30 Glucose 15 gm 15 gm Q15M PRN BUCCAL DECREASED GLUCOSE; Start 11/19/16 at 17:30 Norepinephrine/ Dextrose (Levophed/D5W) 500 ml @ 1.875 mls/ hr TITRATE IV Last administered on 11/22/16 01:11; Admin Dose 7.5 MLS/HR; Start 11/20/16 at 19:30 Amiodarone HCl (Cordarone) 200 mg DAILY GTB Last administered on 11/27/16 10: 08; Admin Dose 200 MG; Start 11/23/16 at 09:00 Nystatin (Nystatin Susp) 5 ml QID PO Last administered on 11/27/16 21:02; Admin Dose 5 ML; Start 11/24/16 at 10:30 Fluconazole 100 mg 100 mg DAILY NGT Last administered on 11/27/16 10:09; Admin Dose 100 MG; Start 11/25/16 at 09:00 Piperacillin Sod/ Tazobactam Sod (Zosyn 3.375gm/ 100 ml (Pmx)) 100 ml @ 100 mls /hr Q6 IVPB Last administered on 11/28/16 06:04; Admin Dose 100 MLS/HR; Start 11/24/16 at 12:00 Atorvastatin Calcium (Lipitor) 10 mg HS NGT Last administered on 11/27/16 21: 06; Admin Dose 10 MG; Start 11/24/16 at 21:00 Mupirocin (Bactroban) 1 applic BID TOP Last administered on 11/27/16 21:06; Admin Dose 1 APPLIC; Start 11/27/16 at 09:30 Insulin Glargine (Lantus) 20 unit DAILY@20 SC Last administered on 11/27/16 21 :05; Admin Dose 20 UNIT; Start 11/27/16 at 20:00 Propranolol HCl (Inderal) 10 mg TID PO ; Start 11/27/16 at 21:00 ELEONORA LEWIS Nov 28, 2016 08:35
[2016-11-28] MEDS: PROPRANOLOL 10 MG TAB PO SCH ×3 (09:00→20:28)
[2016-11-28] MEDS: ASPIRIN (EC) 81 MG TAB PO SCH (09:27)
[2016-11-28] MEDS: BISACODYL 10 MG SUPP PR PRN (09:27)
[2016-11-28] MEDS: FLUCONAZOLE 100 MG TAB NGT SCH (09:27)
[2016-11-28] MEDS: NYSTATIN SUSP 5 ML CUP PO SCH ×4 (09:27→20:26)
[2016-11-28] MEDS: MAGNESIUM HYDROXIDE 30ML CUP PO PRN (09:27)
[2016-11-28] MEDS: AMIODARONE 200 MG TAB GTB SCH (09:28)
[2016-11-28] MEDS: TICAGRELOR 90 MG TABLET PO SCH ×2 (09:29→20:28)
[2016-11-28] MEDS: MUPIROCIN 2% 22 GM OINT TOP SCH ×2 (09:31→20:44)
[2016-11-28] MEDS: FAMOTIDINE 20 MG INJ IV SCH (09:31)
--- NOTE | 2016-11-28 09:51 | PN ---
Date/Time of Note Date/Time of Note DATE: 11/28/16 TIME: 09:14 Assessment/Plan VTE Prophylaxis VTE Prophylaxis Intervention: SCD's Lines/Catheters IV Catheter Type (from Nrsg): Central Line Central line still needed: Yes Urinary Cath still in place: Yes Reason Cath still needed: other (indicate) (monitor UOP ) Assessment/Plan Assessment/Plan 56-year-old male with: 1. ST elevation myocardial infarction with a hemodynamic instability, status post ventricular tachycardia, cardioverted status post angiogram with PCI to the circumflex, Hemodynamically stable but still with significant encephalopathy when on sedation vacation. Re eval today on Fentanyl and Propofol for sedation Dr. Simeon following, on Brilinta and ASA. On po Amio. Pulmonary critical care following 2. Acute respiratory failure secondary to cardiogenic shock and ST elevation myocardial infarction. Also with history of chronic obstructive pulmonary disease Intubated and sedated on Fentanyl and Propofol, nor ready for extubation, restless but not following commands. CXR with CHF exacerbation, OFF IVF now and s/p Lasix 40 mg IV x1 Sunday. On Zosyn with Klebsiella and MSSA on sputum cx ad given WBC up and positive MRSA nares, will change to Zyvox due to episode of rash/shama syndrome possibly. Pulmonary for Vent management. On tube feedings 3. Acute kidney injury on probable chronic kidney disease, likely secondary to acute tubular necrosis in this situation. Monitor Renal function off IVF and diuretics. Repleting electrolytes prn, UOP still OK Renal US mostly unremarkable Nephrology, Dr Welch following. 4. Encephalopathy, sedation vacation today, CT head results noted with findings of chronic infarcts (per Brother, patient had hx of multiple CVAs), ? embolic in nature, given PAF, will need anticoagulation, currently on dual antiplatelets already .. will discuss with Cardiology Check Ammonia level to. 5. Acute ischemic changes b/l toes, now seems better perfused but likely embolic events with angio. Pulses present 6. Shock Liver, with elevated LFTs and coagulopathy currently. Resolving. Avoiding hepatotoxic agents 7. Coagulopathy, 2ry to shock liver likely. Monitor, patient did get Vit Kx1. Resolved 8. Diabetes mellitus. His blood sugars are fairly stable. A1c 7.1 Continue sliding scale insulin and Lantus to 20 units, continue SSI while on TF 9. Thrush: on Nystatin and Diflucan 10. Obstructive sleep apnea on CPAP at night as outpatient. 11. Tobacco use. Hopefully the patient will quit after this. Nicotine patch today. Prophylaxis. Pepcid for GI ppx and SCDs. DISPOSITION: Guarded prognosis still and patient remains critical. Brother Jv was tracked down, he lives in [facility] and confirmed patient has been chronically ill and also active drug abuser including alcoholic, bath salts, ? speed (also hx of dealing cocaine, bath salts?) . Discussed condition and current prognosis with Brother Jv, and per brother patient to be DNR Subjective 24 Hr Interval Summary Free Text/Dictation Patient still encephalopathic CT head with chronic multiple infarcts and ? hepatic, toxic encephalopathy WBC up, started Vanco yesterday with ? reaction vs shama syndrome, will change to Zyvox Exam/Review of Systems Vital Signs Vitals Vital Signs Date Time Temp Pulse Resp B/P Pulse Ox O2 Delivery O2 Flow Rate FiO2 11/28/16 08:00 91 21 99/69 100 Mechanical Ventilator 11/28/16 07:30 97.7 11/28/16 05:40 30 Intake and Output 11/27/16 11/27/16 11/28/16 15:00 23:00 07:00 Intake Total 1078.8 ml 887.260 ml 673.362 ml Output Total 380 ml 570 ml 340 ml Balance 698.8 ml 317.260 ml 333.362 ml Exam Constitutional: other (agitated and not following commands when off sedation, otherwise sedated) ENMT: intubated Respiratory: diminished breath sounds Cardiovascular: nl pulses, regular rate and rhythm Gastrointestinal: non-tender, soft Musculoskeletal: other (ischemic areas of toes unchanged ) Extremities: normal pulses Neurological: lethargic, other (sedated and intubated ) Results Result Diagram: 11/28/16 0340 11/28/16 0500 Results 24 hrs Laboratory Tests Test 11/27/16 10:07 11/27/16 13:08 11/27/16 18:07 11/27/16 20:51 Bedside Glucose 126 155 136 151 Test 11/28/16 00:48 11/28/16 03:40 11/28/16 05:00 11/28/16 05:25 Bedside Glucose 136 136 White Blood Count 19.5 H Red Blood Count 4.11 L Hemoglobin 12.4 L Hematocrit 39.8 L Mean Corpuscular Volume 96.8 Mean Corpuscular Hemoglobin 30.2 Mean Corpuscular Hemoglobin Concent 31.2 L Red Cell Distribution Width 14.9 H Platelet Count 199 Mean Platelet Volume 11.9 H Neutrophils % 79.4 H Lymphocytes % 9.8 L Monocytes % 3.9 Eosinophils % 4.3 Basophils % 0.3 Nucleated Red Blood Cells % 0.0 Neutrophils # 15.5 H Lymphocytes # 1.9 Monocytes # 0.8 Eosinophils # 0.8 H Basophils # 0.1 Nucleated Red Blood Cells # 0.0 Prothrombin Time 14.4 H Prothrombin Time Ratio 1.1 INR International Normalized Ratio 1.12 Activated Partial Thromboplast Time 27.1 Sodium Level 142 Potassium Level 4.0 Chloride Level 109 Carbon Dioxide Level 24 Anion Gap 13 Blood Urea Nitrogen 43 H Creatinine 2.01 H Glucose Level 150 Calcium Level 8.8 Phosphorus Level 3.4 Magnesium Level 2.1 Total Bilirubin 0.3 Direct Bilirubin 0.00 Indirect Bilirubin 0.3 Aspartate Amino Transf (AST/SGOT) 43 Alanine Aminotransferase (ALT/SGPT) 209 H Alkaline Phosphatase 137 H B-Type Natriuretic Peptide 5940 H Total Protein 5.9 L Albumin 2.9 L Globulin 3.00 Albumin/Globulin Ratio 0.96 Digoxin Level < 0.4 L Test 11/28/16 06:00 Prothrombin Time 14.5 H Prothrombin Time Ratio 1.1 INR International Normalized Ratio 1.13 Medications Medications Current Medications Aspirin (Halfprin) 81 mg DAILY PO Last administered on 11/27/16 10:08; Admin Dose 81 MG; Start 11/20/16 at 09:00 Ticagrelor 90 mg 90 mg BID PO Last administered on 11/27/16 21:04; Admin Dose 90 MG; Start 11/19/16 at 21:00 Propofol 100 ml @ 3.818 mls/ hr Q12H IV Last administered on 11/28/16 08:34; Admin Dose 15.272 MLS/HR; Start 11/19/16 at 16:30 Fentanyl (Sublimaze) 100 ml @ 2.5 mls/hr TITRATE IV Last administered on 23:02; Admin Dose 5 MLS/HR; Start 11/19/16 at 17:00 Ondansetron HCl (Zofran Inj) 4 mg Q6H PRN IV NAUSEA AND/OR VOMITING; Start 04/27 at 17:00 Acetaminophen (Tylenol Liquid) 650 mg Q6H PRN PO PAIN LEVEL 1-3 OR FEVER; Start 11/19/16 at 17:00 Acetaminophen (Tylenol Supp) 650 mg Q4H PRN DE PAIN LEVEL 1-3 OR FEVER; Start 11/19/16 at 17:00 Docusate Sodium (Colace) 100 mg Q12H PRN PO CONSTIPATION; Start 11/19/16 at 17: 00 Magnesium Hydroxide (Milk Of Mag) 30 ml DAILY PRN PO CONSTIPATION; Start at 17:00 Bisacodyl (Dulcolax Supp) 10 mg DAILY PRN [place] CONSTIPATION; Start 11/19/16 at 17 :00 Famotidine (Pepcid Iv) 20 mg DAILY IV Last administered on 11/27/16 09:00; Admin Dose 20 MG; Start 11/19/16 at 17:00 Insulin Aspart (Novolog Insulin Pen) NOVOLOG *MODERATE* ALGORI... Q4 SC Last administered on 11/27/16 21:06; Admin Dose 2 UNIT; Start 11/19/16 at 17:30 Miscellaneous Information 1 ea NOTE XX ; Start 11/19/16 at 17:30 Glucose (Glutose) 15 gm Q15M PRN PO DECREASED GLUCOSE; Start 11/19/16 at 17:30 Glucose (Glutose) 22.5 gm Q15M PRN PO DECREASED GLUCOSE; Start 11/19/16 at 17: 30 Dextrose (D50w Syringe) 25 ml Q15M PRN IV DECREASED GLUCOSE; Start 11/19/16 at 17:30 Dextrose (D50w Syringe) 50 ml Q15M PRN IV DECREASED GLUCOSE; Start 11/19/16 at 17:30 Glucagon (Glucagen) 1 mg Q15M PRN IM DECREASED GLUCOSE; Start 11/19/16 at 17:30 Glucose 15 gm 15 gm Q15M PRN BUCCAL DECREASED GLUCOSE; Start 11/19/16 at 17:30 Norepinephrine/ Dextrose (Levophed/D5W) 500 ml @ 1.875 mls/ hr TITRATE IV Last administered on 11/22/16 01:11; Admin Dose 7.5 MLS/HR; Start 11/20/16 at 19:30 Amiodarone HCl (Cordarone) 200 mg DAILY GTB Last administered on 11/27/16 10: 08; Admin Dose 200 MG; Start 11/23/16 at 09:00 Nystatin (Nystatin Susp) 5 ml QID PO Last administered on 11/27/16 21:02; Admin Dose 5 ML; Start 11/24/16 at 10:30 Fluconazole 100 mg 100 mg DAILY NGT Last administered on 11/27/16 10:09; Admin Dose 100 MG; Start 11/25/16 at 09:00 Piperacillin Sod/ Tazobactam Sod (Zosyn 3.375gm/ 100 ml (Pmx)) 100 ml @ 100 mls /hr Q6 IVPB Last administered on 11/28/16 06:04; Admin Dose 100 MLS/HR; Start 11/24/16 at 12:00 Atorvastatin Calcium (Lipitor) 10 mg HS NGT Last administered on 11/27/16 21: 06; Admin Dose 10 MG; Start 11/24/16 at 21:00 Mupirocin (Bactroban) 1 applic BID TOP Last administered on 11/27/16 21:06; Admin Dose 1 APPLIC; Start 11/27/16 at 09:30 Insulin Glargine (Lantus) 20 unit DAILY@20 SC Last administered on 11/27/16 21 :05; Admin Dose 20 UNIT; Start 11/27/16 at 20:00 Propranolol HCl (Inderal) 10 mg TID PO ; Start 11/27/16 at 21:00 Procedures Procedures PROCEDURE: CT brain without contrast CLINICAL INDICATION: Weakness. Encephalopathy TECHNIQUE: A CT of the brain was performed utilizing axial sections from the skull base through the vertex without contrast. Sagittal and coronal images were also reformatted. The exam CTDIvol = 43.05 mGy and DLP = 900.28 mGy-cm. COMPARISON: None available FINDINGS: No acute intracranial hemorrhage is identified. There is no mass effect or midline shift. No extra-axial fluid collection is seen. The ventricles and sulci are larger in size and configuration for the patient's provided age of 56 years consistent with advanced generalized atrophy. Multiple scattered areas of hypodensity involving white matter and cortex of the bilateral parietal lobes , rule right frontal lobe and left mitchell radiata are consistent with multifocal chronic appearing infarcts and possibly a manifestation of alcoholic toxic encephalopathy. Whitney-white differentiation is preserved with no findings to suggest an acute ischemic infarct. The fourth ventricle is midline and there is no density alteration within the brenda or cerebellum. The osseous structures are unremarkable. To opacification of the right maxillary sinus is present with almost complete opacification of the left sphenoid sinus. Note is made of an endotracheal tube and orogastric tube RPTAT:HJJR IMPRESSION: 1. Advanced atrophy for the patient's provided age with multifocal chronic appearing cerebral hemispheric infarcts involving the right frontal, bilateral parietal lobes and left mitchell radiata, findings potentially a manifestation of hepatic encephalopathy, toxic alcoholic encephalopathy or embolic phenomenon. 2. No evidence of intracranial hemorrhage or hydrocephalous. 3. Left sphenoid and right maxillary sinusitis. 4. Endotracheal and orogastric intubation. PIO VEGA Nov 28, 2016 09:25
[2016-11-28] MEDS: LINEZOLID 600 MG/D5W (PMX) 300 ML IVPB SCH ×2 (11:41→20:28)
[2016-11-28 14:27] LABS: ADD UMIC YES; UR ASCORBIC ACID 40 mg/dL (NEGATIVE); UR BILIRUBIN (Dip) NEGATIVE (NEGATIVE); UR BLOOD (Dip) 2+ mg/dL (NEGATIVE); UR CLARITY SLIGHTLY CLOUDY (CLEAR); UR COLOR YELLOW (YELLOW); UR GLUCOSE (Dip) NEGATIVE (NEGATIVE); UR KETONES (Dip) NEGATIVE (NEGATIVE); UR LEUKOCYTE ESTERASE (Dip) NEGATIVE Leu/ul (NEGATIVE); UR NITRITE (Dip) NEGATIVE (NEGATIVE); UR RBC > 182 /HPF (0-5); UR SPECIFIC GRAVITY (Dip) 1.024 (1.003-1.030); UR TOTAL PROTEIN (Dip) 1+ mg/dl (NEGATIVE); UR URIC ACID CRYSTAL FEW /HPF; UR UROBILINOGEN (Dip) 1+ mg/dL (NEGATIVE)
--- NOTE | 2016-11-28 15:49 | PN ---
DATE: 11/28/2016 SUBJECTIVE: This is a cardiology followup progress note. Discussed with the staff. Rhythm strip was reviewed. The patient remains nonverbal, still remains in atrial fibrillation. Heart rate unde r good control, though. The patient is still intubated on the vent. Blood pressure has remained st able on the low side but stable though. According to the staff, the patient has been sedated by gio prajapati as he became agitated and confused. Code status as per brothers request has been DNR now. MEDICATIONS: Reviewed as per medication reconciliation, was personally reviewed. PHYSICAL EXAMINATION: VITAL SIGNS: Temperature 98, heart rate of 98, blood pressure 84/66, respiration rate of 20, satura ting 100%. HEENT: Normocephalic, atraumatic. Status post intubation on the vent. Pupils are round. CARDIOVASCULAR: Irregularly irregular. Systolic murmur. PULMONARY: Anteriorly with mild rhonchi with no wheezes. GASTROINTESTINAL: Soft, nontender. EXTREMITIES: With positive lower extremity edema. NEUROLOGIC: No response to verbal stimuli. LABORATORY: WBC of 19.5, hemoglobin of 12.4, platelet 199. Sodium 142, potassium 4.0, BUN of 43, c reatinine 2.01, glucose 150. Brain CT done yesterday showed advanced atrophy for the patient's age. Multifocal chronic appearing cerebral hemispheric infarct involving the right frontal bilateral pa rietal lobe and left mitchell radiata finding potentially manifestation hepatic encephalopathy and tox ic alcoholic encephalopathy phenomena. No evidence of acute intracranial hemorrhage. ASSESSMENT AND PLAN: 1. Status post cardiopulmonary arrest. 2. Ventricular tachycardia. 3. Status post ST-segment elevation myocardial infarction, status post percutaneous coronary interv ention of left coronary artery. 4. Hypoxemic respiratory failure. 5. Severe encephalopathy. 6. History of cerebrovascular accident based on the CT scan. 7. Renal failure, improving. 8. Shock liver, improving. 9. Atrial fibrillation. RECOMMENDATIONS: We will continue with the supportive care, vent support will be continued. Have n ot been able to wean him off of the vent now. ICU care will be continued. Continue on amiodarone p .o. for now, low dose statin will be continued as well as ____ and okay. Vent will be continued. C ritical care will manage this patient for any procedure. More than 30 minutes of critical care management of this patient excluding procedures. Dictated By: SERENA CENTENO/JUANY Conf#: [id number] DID#: [id number]
[2016-11-28] MEDS: FENTAnyl (DRIP) 1000 mcg/100mL 100 ML IV SCH (18:59)
--- NOTE | 2016-11-28 19:15 | CONS ---
Date/Time of Note Date/Time of Note DATE: 11/28/16 TIME: 19:10 Assessment/Plan Assessment/Plan Additional Assessment/Plan 1. Acute kidney injury on possible previous chronic kidney disease with last creatinine known about 1.48 secondary to acute tubular necrosis from ischemic acute tubular necrosis from cardiogenic shock. 2. Acute respiratory failure from cardiogenic shock, currently intubated on ventilator- failed weaning trial due to pulmonary congestion 3. Acute non-ST elevation myocardial infarction, s/p v tach arrest s/p pci of RCA, possible staged procedure to LCx required s/p IABP, now off 4. History of possible chronic kidney disease secondary to diabetic nephropathy , unknown stage. 5. History of type 2 diabetes mellitus. 6. History of hypertension. Plan: remains intubated, ventilator care as per pulmonary Cr 2.01 will give lasix 20mg IV x 1 dose now free water flush 50cc Q 6 hr Patient still encephalopathic CT head with chronic multiple infarcts and ? hepatic, toxic encephalopathy on Brilinat Post cath will continue to follow up on patient DNR code status Consultation Date/Type/Reason Admit Date/Time Nov 19, 2016 at 16:09 Initial Consult Date Nov Type of Consultation: NEPHROLOGY Referring Provider: PIO VEGA 24 HR Interval Summary Free Text/Dictation Cr 2.01, BP stable,afebrile, Electrolyes stable Exam/Review of Systems Vital Signs Vitals Vital Signs Date Time Temp Pulse Resp B/P Pulse Ox O2 Delivery O2 Flow Rate FiO2 11/28/16 18:00 62 20 88/63 100 Mechanical Ventilator 11/28/16 17:34 30 11/28/16 16:00 98.2 Intake and Output 11/27/16 11/27/16 11/28/16 15:00 23:00 07:00 Intake Total 1078.8 ml 887.260 ml 673.362 ml Output Total 380 ml 570 ml 340 ml Balance 698.8 ml 317.260 ml 333.362 ml Exam GENERAL: no acute distress NECK: supple + Et tube LUNGS: Bilateral crackles + HEART: S1, S2, tachycardia, no murmur. ABDOMEN: Soft, morbidly obese. EXTREMITIES: 1 to 2+ pitting edema. No clubbing, cyanosis. NEUROLOGICAL: Uncooperative for exam PSYCHIATRIC: Not able to assess at this point. Results Result Diagram: 11/28/16 0340 11/28/16 0500 Results 24 hrs Laboratory Tests Test 11/27/16 20:51 11/28/16 00:48 11/28/16 03:40 11/28/16 05:00 Bedside Glucose 151 136 White Blood Count 19.5 H Red Blood Count 4.11 L Hemoglobin 12.4 L Hematocrit 39.8 L Mean Corpuscular Volume 96.8 Mean Corpuscular Hemoglobin 30.2 Mean Corpuscular Hemoglobin Concent 31.2 L Red Cell Distribution Width 14.9 H Platelet Count 199 Mean Platelet Volume 11.9 H Neutrophils % 79.4 H Lymphocytes % 9.8 L Monocytes % 3.9 Eosinophils % 4.3 Basophils % 0.3 Nucleated Red Blood Cells % 0.0 Neutrophils # 15.5 H Lymphocytes # 1.9 Monocytes # 0.8 Eosinophils # 0.8 H Basophils # 0.1 Nucleated Red Blood Cells # 0.0 Prothrombin Time 14.4 H Prothrombin Time Ratio 1.1 INR International Normalized Ratio 1.12 Activated Partial Thromboplast Time 27.1 Sodium Level 142 Potassium Level 4.0 Chloride Level 109 Carbon Dioxide Level 24 Anion Gap 13 Blood Urea Nitrogen 43 H Creatinine 2.01 H Glucose Level 150 Calcium Level 8.8 Phosphorus Level 3.4 Magnesium Level 2.1 Total Bilirubin 0.3 Direct Bilirubin 0.00 Indirect Bilirubin 0.3 Aspartate Amino Transf (AST/SGOT) 43 Alanine Aminotransferase (ALT/SGPT) 209 H Alkaline Phosphatase 137 H B-Type Natriuretic Peptide 5940 H Total Protein 5.9 L Albumin 2.9 L Globulin 3.00 Albumin/Globulin Ratio 0.96 Digoxin Level < 0.4 L Test 11/28/16 05:25 11/28/16 06:00 11/28/16 09:26 11/28/16 09:50 Bedside Glucose 136 135 Prothrombin Time 14.5 H Prothrombin Time Ratio 1.1 INR International Normalized Ratio 1.13 Ammonia < 9 #L Test 11/28/16 10:00 11/28/16 13:30 11/28/16 16:45 Urine Color YELLOW Urine Clarity SLIGHTLY CLOUDY A Urine pH 5.0 Urine Specific [place] 1.024 Urine Ketones NEGATIVE Urine Nitrite NEGATIVE Urine Bilirubin NEGATIVE Urine Urobilinogen 1+ H Urine Leukocyte Esterase NEGATIVE Urine Microscopic RBC > 182 H Urine Microscopic WBC 4 Urine Uric Acid Crystals FEW Urine Hemoglobin 2+ H Urine Glucose NEGATIVE Urine Total Protein 1+ H Bedside Glucose 151 129 Medications Medications Current Medications Aspirin (Halfprin) 81 mg DAILY PO Last administered on 11/28/16 09:27; Admin Dose 81 MG; Start 11/20/16 at 09:00 Ticagrelor 90 mg 90 mg BID PO Last administered on 11/28/16 09:29; Admin Dose 90 MG; Start 11/19/16 at 21:00 Propofol 100 ml @ 3.818 mls/ hr Q12H IV Last administered on 11/28/16 15:47; Admin Dose 22.909 MLS/HR; Start 11/19/16 at 16:30 Fentanyl (Sublimaze) 100 ml @ 2.5 mls/hr TITRATE IV Last administered on 18:59; Admin Dose 5 MLS/HR; Start 11/19/16 at 17:00 Ondansetron HCl (Zofran Inj) 4 mg Q6H PRN IV NAUSEA AND/OR VOMITING; Start 04/27 at 17:00 Acetaminophen (Tylenol Liquid) 650 mg Q6H PRN PO PAIN LEVEL 1-3 OR FEVER; Start 11/19/16 at 17:00 Acetaminophen (Tylenol Supp) 650 mg Q4H PRN [place] PAIN LEVEL 1-3 OR FEVER; Start 11/19/16 at 17:00 Docusate Sodium (Colace) 100 mg Q12H PRN PO CONSTIPATION; Start 11/19/16 at 17: 00 Magnesium Hydroxide (Milk Of Mag) 30 ml DAILY PRN PO CONSTIPATION Last administered on 11/28/16 09:27; Admin Dose 30 ML; Start 11/19/16 at 17:00 Bisacodyl (Dulcolax Supp) 10 mg DAILY PRN [place] CONSTIPATION Last administered on 11/28/16 09:27; Admin Dose 10 MG; Start 11/19/16 at 17:00 Famotidine (Pepcid Iv) 20 mg DAILY IV Last administered on 11/28/16 09:31; Admin Dose 20 MG; Start 11/19/16 at 17:00 Insulin Aspart (Novolog Insulin Pen) NOVOLOG *MODERATE* ALGORI... Q4 SC Last administered on 11/28/16 13:32; Admin Dose 2 UNIT; Start 11/19/16 at 17:30 Miscellaneous Information 1 ea NOTE XX ; Start 11/19/16 at 17:30 Glucose (Glutose) 15 gm Q15M PRN PO DECREASED GLUCOSE; Start 11/19/16 at 17:30 Glucose (Glutose) 22.5 gm Q15M PRN PO DECREASED GLUCOSE; Start 11/19/16 at 17: 30 Dextrose (D50w Syringe) 25 ml Q15M PRN IV DECREASED GLUCOSE; Start 11/19/16 at 17:30 Dextrose (D50w Syringe) 50 ml Q15M PRN IV DECREASED GLUCOSE; Start 11/19/16 at 17:30 Glucagon (Glucagen) 1 mg Q15M PRN IM DECREASED GLUCOSE; Start 11/19/16 at 17:30 Glucose 15 gm 15 gm Q15M PRN BUCCAL DECREASED GLUCOSE; Start 11/19/16 at 17:30 Norepinephrine/ Dextrose (Levophed/D5W) 500 ml @ 1.875 mls/ hr TITRATE IV Last administered on 11/22/16 01:11; Admin Dose 7.5 MLS/HR; Start 11/20/16 at 19:30 Amiodarone HCl (Cordarone) 200 mg DAILY GTB Last administered on 11/28/16 09: 28; Admin Dose 200 MG; Start 11/23/16 at 09:00 Nystatin (Nystatin Susp) 5 ml QID PO Last administered on 11/28/16 17:08; Admin Dose 5 ML; Start 11/24/16 at 10:30 Fluconazole 100 mg 100 mg DAILY NGT Last administered on 11/28/16 09:27; Admin Dose 100 MG; Start 11/25/16 at 09:00 Piperacillin Sod/ Tazobactam Sod (Zosyn 3.375gm/ 100 ml (Pmx)) 100 ml @ 100 mls /hr Q6 IVPB Last administered on 11/28/16 17:08; Admin Dose 100 MLS/HR; Start 11/24/16 at 12:00 Atorvastatin Calcium (Lipitor) 10 mg HS NGT Last administered on 11/27/16 21: 06; Admin Dose 10 MG; Start 11/24/16 at 21:00 Mupirocin (Bactroban) 1 applic BID TOP Last administered on 11/28/16 09:31; Admin Dose 1 APPLIC; Start 11/27/16 at 09:30 Insulin Glargine (Lantus) 20 unit DAILY@20 SC Last administered on 11/27/16 21 :05; Admin Dose 20 UNIT; Start 11/27/16 at 20:00 Propranolol HCl 10 mg 10 mg TID PO ; Start 11/27/16 at 21:00 Linezolid (Zyvox 600mg/D5W (Pmx)) 300 ml @ 300 mls/hr Q12 IVPB Last administered on 11/28/16 11:41; Admin Dose 300 MLS/HR; Start 11/28/16 at 11:00 FÁTIMA PERES MD Nov 28, 2016 19:15
[2016-11-28] MEDS ORDERED: FUROSEMIDE 20 MG INJ IV ONE (19:30)
[2016-11-28] MEDS: INSULIN GLARGINE [LANtus] 3 ML PEN SC SCH (20:03)
[2016-11-28] MEDS: ATORVASTATIN 10 MG TAB NGT SCH (20:26)
[2016-11-29] VITALS (60 sets, daily range): BP systolic 78–122; BP diastolic 48–82; PULSE 52–150; RESP 12–47
[2016-11-29] MEDS: INSULIN ASPART [NOVOLOG] 3 ML PEN SC SCH ×6 (01:00→20:34)
[2016-11-29] MEDS: PIPER-TAZO 3.375 GM IV (PMX) 100 ML IVPB SCH ×4 (01:27→17:38)
[2016-11-29] MEDS: PROPOFOL 100 ML IV SCH ×4 (02:01→22:20)
[2016-11-29 06:43] LABS: ADD SCAN DIFF NO
[2016-11-29 06:48] LABS: BASOPHILS % 0.2 % (0.0-2.0); EOSINOPHILS # 0.8 10^3/ul (0.0-0.5); EOSINOPHILS % 5.1 % (0.0-7.0); HEMATOCRIT 35.1 % (42.0-52.0); LYMPHOCYTES # 2.1 10^3/ul (0.8-2.9); LYMPHOCYTES % 14.3 % (15.0-51.0); MEAN CORPUSCULAR HEMOGLOBIN 29.9 pg (29.0-33.0); MEAN CORPUSCULAR HGB CONC 31.3 g/dl (32.0-37.0); MEAN CORPUSCULAR VOLUME 95.4 fl (82.0-101.0); MEAN PLATELET VOLUME 12.5 fl (7.4-10.4); MONOCYTE # 0.5 10^3/ul (0.3-0.9); MONOCYTES % 3.5 % (0.0-11.0); NEUTROPHIL # 11.3 10^3/ul (1.6-7.5); NEUTROPHILS % 75.3 % (39.0-77.0); PLATELET COUNT 173 10^3/UL (140-415); RED BLOOD COUNT 3.68 10^6/ul (4.70-6.10)
[2016-11-29 07:26] LABS: MAGNESIUM 2.2 mg/dl (1.7-2.5); PHOSPHORUS 3.8 mg/dl (2.5-4.9)
[2016-11-29 07:28] LABS: ALBUMIN 2.7 g/dl (3.3-4.9); BILIRUBIN,INDIRECT 0.2 mg/dl (0-1.1); BILIRUBIN,TOTAL 0.2 mg/dl (0.2-1.3); CALCIUM 8.8 mg/dl (8.4-10.2); CREATININE 2.04 mg/dl (0.61-1.24); INR 1.08; POTASSIUM 3.8 mmol/L (3.5-5.1); PT RATIO 1.1; TOTAL PROTEIN 5.4 g/dl (6.1-8.1)
[2016-11-29 07:37] LABS: PARTIAL THROMBOPLASTIN TIME 26.2 Sec (25.0-35.0)
[2016-11-29] MEDS: MAGNESIUM HYDROXIDE 30ML CUP PO PRN (09:23)
[2016-11-29] MEDS: LINEZOLID 600 MG/D5W (PMX) 300 ML IVPB SCH ×2 (09:23→20:25)
[2016-11-29] MEDS: BISACODYL 10 MG SUPP PR PRN (09:23)
[2016-11-29] MEDS: NYSTATIN SUSP 5 ML CUP PO SCH ×4 (09:23→20:24)
[2016-11-29] MEDS: FAMOTIDINE 20 MG INJ IV SCH (09:24)
[2016-11-29] MEDS: FLUCONAZOLE 100 MG TAB NGT SCH (09:24)
[2016-11-29] MEDS: ASPIRIN (EC) 81 MG TAB PO SCH (09:24)
[2016-11-29] MEDS: PROPRANOLOL 10 MG TAB PO SCH ×3 (09:24→20:24)
[2016-11-29] MEDS: AMIODARONE 200 MG TAB GTB SCH (09:24)
[2016-11-29] MEDS: MUPIROCIN 2% 22 GM OINT TOP SCH ×2 (09:25→21:28)
[2016-11-29] MEDS: TICAGRELOR 90 MG TABLET PO SCH ×2 (09:26→20:26)
--- NOTE | 2016-11-29 09:49 | PN ---
Date/Time of Note Date/Time of Note DATE: 11/29/16 TIME: 09:29 Assessment/Plan VTE Prophylaxis VTE Prophylaxis Intervention: SCD's Lines/Catheters IV Catheter Type (from Nrsg): Central Line Central line still needed: Yes (for IV access ) Urinary Cath still in place: Yes Reason Cath still needed: other (indicate) (for UOP monitoring ) Assessment/Plan Assessment/Plan 56-year-old male with: 1. ST elevation myocardial infarction with a hemodynamic instability, status post ventricular tachycardia, cardioverted status post angiogram with PCI to the circumflex, Hemodynamically stable but still with significant encephalopathy when on sedation vacation. Re eval today on Fentanyl and Propofol for sedation Dr. Simeon following, on Brilinta and ASA. On po Amio. Pulmonary critical care following 2. Acute respiratory failure secondary to cardiogenic shock and ST elevation myocardial infarction. Also with history of chronic obstructive pulmonary disease Intubated and sedated on Fentanyl and Propofol, nor ready for extubation, restless but not following commands. CXR with CHF exacerbation, OFF IVF now and s/p another dose of Lasix 40 mg IV x1 yesterday. On Zosyn with Klebsiella and MSSA on sputum cx ad given WBC up and positive MRSA nares, and also now on Zyvox. Pulmonary for Vent management. On tube feedings 3. Acute kidney injury on probable chronic kidney disease, likely secondary to acute tubular necrosis in this situation. Monitor Renal function off IVF and diuretics prn . Repleting electrolytes prn, UOP still OK Renal US mostly unremarkable Nephrology, Dr Welch following. 4. Encephalopathy with reported hx of drug use (cocaine, bath salts..) and heavy alcohol use. sedation vacation today, CT head results noted with findings of chronic infarcts (per Brother, patient had hx of multiple CVAs), ? embolic in nature, given PAF, will need anticoagulation, currently on dual antiplatelets already .. will discuss with Cardiology Ammonia wnl. Start thiamine IV, Folic Acid and MVI 5. Acute ischemic changes b/l toes, now seems better perfused but likely embolic events with angio. Pulses present 6. Shock Liver, with elevated LFTs and coagulopathy currently. Resolving. Avoiding hepatotoxic agents. 7. Diabetes mellitus. His blood sugars are fairly stable. A1c 7.1 Continue sliding scale insulin and Lantus to 20 units, continue SSI while on TF 8. Thrush: on Nystatin and Diflucan 9. Obstructive sleep apnea on CPAP at night as outpatient. 10. Tobacco use. Hopefully the patient will quit after this. Nicotine patch today. Prophylaxis. Pepcid for GI ppx and SCDs. DISPOSITION: Guarded prognosis still and patient remains critical. Brother Jv was tracked down, he lives in [facility] and confirmed patient has been chronically ill and also active drug abuser including alcoholic, bath salts, ? speed (also hx of dealing cocaine, bath salts?) . Discussed condition and current prognosis with Brother Jv, and per brother patient to be DNR Subjective 24 Hr Interval Summary Free Text/Dictation Patient remains stable hemodynamically but still with encephalopathy Another sedation vacation today and possible CPAP trial if MS better WBC trending down Exam/Review of Systems Vital Signs Vitals Vital Signs Date Time Temp Pulse Resp B/P Pulse Ox O2 Delivery O2 Flow Rate FiO2 11/29/16 09:00 81 20 118/72 100 Mechanical Ventilator 11/29/16 08:00 30 11/29/16 07:30 98.8 Intake and Output 11/28/16 11/28/16 11/29/16 15:00 23:00 07:00 Intake Total 1070.3 ml 894.8 ml 817 ml Output Total 470 ml 385 ml 330 ml Balance 600.3 ml 509.8 ml 487 ml Exam Constitutional: other (minimal sedation ) Respiratory: diminished breath sounds (bases bilaterally ), normal air movement Cardiovascular: nl pulses, regular rate and rhythm (SR with occasional trijeminy ) Gastrointestinal: non-tender, other (tolerating TF ), soft Musculoskeletal: nl extremities to inspection Extremities: normal pulses, other (anasarca noted ) Neurological: other (sedated and being weaned down so slowly responsive to name ) Skin: other (improving rash ) Results Result Diagram: 11/29/16 0500 11/29/16 0500 Results 24 hrs Laboratory Tests Test 11/28/16 09:50 11/28/16 10:00 11/28/16 13:30 11/28/16 16:45 Ammonia < 9 #L Urine Color YELLOW Urine Clarity SLIGHTLY CLOUDY A Urine pH 5.0 Urine Specific [place] 1.024 Urine Ketones NEGATIVE Urine Nitrite NEGATIVE Urine Bilirubin NEGATIVE Urine Urobilinogen 1+ H Urine Leukocyte Esterase NEGATIVE Urine Microscopic RBC > 182 H Urine Microscopic WBC 4 Urine Uric Acid Crystals FEW Urine Hemoglobin 2+ H Urine Glucose NEGATIVE Urine Total Protein 1+ H Bedside Glucose 151 129 Test 11/28/16 20:00 11/29/16 01:29 11/29/16 05:00 11/29/16 05:08 Bedside Glucose 146 130 147 White Blood Count 15.0 #H Red Blood Count 3.68 L Hemoglobin 11.0 L Hematocrit 35.1 L Mean Corpuscular Volume 95.4 Mean Corpuscular Hemoglobin 29.9 Mean Corpuscular Hemoglobin Concent 31.3 L Red Cell Distribution Width 15.0 H Platelet Count 173 Mean Platelet Volume 12.5 H Neutrophils % 75.3 Lymphocytes % 14.3 L Monocytes % 3.5 Eosinophils % 5.1 Basophils % 0.2 Nucleated Red Blood Cells % 0.0 Neutrophils # 11.3 H Lymphocytes # 2.1 Monocytes # 0.5 Eosinophils # 0.8 H Basophils # 0.0 Nucleated Red Blood Cells # 0.0 Prothrombin Time 14.0 Prothrombin Time Ratio 1.1 INR International Normalized Ratio 1.08 Activated Partial Thromboplast Time 26.2 Sodium Level 140 Potassium Level 3.8 Chloride Level 108 Carbon Dioxide Level 25 Anion Gap 11 Blood Urea Nitrogen 47 H Creatinine 2.04 H Glucose Level 137 Calcium Level 8.8 Phosphorus Level 3.8 Magnesium Level 2.2 Total Bilirubin 0.2 Direct Bilirubin 0.00 Indirect Bilirubin 0.2 Aspartate Amino Transf (AST/SGOT) 28 Alanine Aminotransferase (ALT/SGPT) 144 H Alkaline Phosphatase 112 Ammonia 18 Total Protein 5.4 L Albumin 2.7 L Globulin 2.70 Albumin/Globulin Ratio 1.00 Medications Medications Current Medications Aspirin (Halfprin) 81 mg DAILY PO Last administered on 11/28/16 09:27; Admin Dose 81 MG; Start 11/20/16 at 09:00 Ticagrelor 90 mg 90 mg BID PO Last administered on 11/28/16 20:28; Admin Dose 90 MG; Start 11/19/16 at 21:00 Propofol 100 ml @ 3.818 mls/ hr Q12H IV Last administered on 11/29/16 07:52; Admin Dose 19.091 MLS/HR; Start 11/19/16 at 16:30 Fentanyl (Sublimaze) 100 ml @ 2.5 mls/hr TITRATE IV Last administered on 18:59; Admin Dose 5 MLS/HR; Start 11/19/16 at 17:00 Ondansetron HCl (Zofran Inj) 4 mg Q6H PRN IV NAUSEA AND/OR VOMITING; Start 04/27 at 17:00 Acetaminophen (Tylenol Liquid) 650 mg Q6H PRN PO PAIN LEVEL 1-3 OR FEVER; Start 11/19/16 at 17:00 Acetaminophen (Tylenol Supp) 650 mg Q4H PRN [place] PAIN LEVEL 1-3 OR FEVER; Start 11/19/16 at 17:00 Docusate Sodium (Colace) 100 mg Q12H PRN PO CONSTIPATION; Start 11/19/16 at 17: 00 Magnesium Hydroxide (Milk Of Mag) 30 ml DAILY PRN PO CONSTIPATION Last administered on 11/28/16 09:27; Admin Dose 30 ML; Start 11/19/16 at 17:00 Bisacodyl (Dulcolax Supp) 10 mg DAILY PRN [place] CONSTIPATION Last administered on 11/28/16 09:27; Admin Dose 10 MG; Start 11/19/16 at 17:00 Famotidine (Pepcid Iv) 20 mg DAILY IV Last administered on 11/28/16 09:31; Admin Dose 20 MG; Start 11/19/16 at 17:00 Insulin Aspart (Novolog Insulin Pen) NOVOLOG *MODERATE* ALGORI... Q4 SC Last administered on 11/29/16 05:26; Admin Dose 2 UNIT; Start 11/19/16 at 17:30 Miscellaneous Information 1 ea NOTE XX ; Start 11/19/16 at 17:30 Glucose (Glutose) 15 gm Q15M PRN PO DECREASED GLUCOSE; Start 11/19/16 at 17:30 Glucose (Glutose) 22.5 gm Q15M PRN PO DECREASED GLUCOSE; Start 11/19/16 at 17: 30 Dextrose (D50w Syringe) 25 ml Q15M PRN IV DECREASED GLUCOSE; Start 11/19/16 at 17:30 Dextrose (D50w Syringe) 50 ml Q15M PRN IV DECREASED GLUCOSE; Start 11/19/16 at 17:30 Glucagon (Glucagen) 1 mg Q15M PRN IM DECREASED GLUCOSE; Start 11/19/16 at 17:30 Glucose 15 gm 15 gm Q15M PRN BUCCAL DECREASED GLUCOSE; Start 11/19/16 at 17:30 Norepinephrine/ Dextrose (Levophed/D5W) 500 ml @ 1.875 mls/ hr TITRATE IV Last administered on 11/22/16 01:11; Admin Dose 7.5 MLS/HR; Start 11/20/16 at 19:30 Amiodarone HCl (Cordarone) 200 mg DAILY GTB Last administered on 11/28/16 09: 28; Admin Dose 200 MG; Start 11/23/16 at 09:00 Nystatin (Nystatin Susp) 5 ml QID PO Last administered on 11/28/16 20:26; Admin Dose 5 ML; Start 11/24/16 at 10:30 Fluconazole 100 mg 100 mg DAILY NGT Last administered on 11/28/16 09:27; Admin Dose 100 MG; Start 11/25/16 at 09:00 Piperacillin Sod/ Tazobactam Sod (Zosyn 3.375gm/ 100 ml (Pmx)) 100 ml @ 100 mls /hr Q6 IVPB Last administered on 11/29/16 05:30; Admin Dose 100 MLS/HR; Start 11/24/16 at 12:00 Atorvastatin Calcium (Lipitor) 10 mg HS NGT Last administered on 11/28/16 20: 26; Admin Dose 10 MG; Start 11/24/16 at 21:00 Mupirocin (Bactroban) 1 applic BID TOP Last administered on 11/28/16 20:44; Admin Dose 1 APPLIC; Start 11/27/16 at 09:30 Insulin Glargine (Lantus) 20 unit DAILY@20 SC Last administered on 11/28/16 20 :03; Admin Dose 20 UNIT; Start 11/27/16 at 20:00 Propranolol HCl 10 mg 10 mg TID PO ; Start 11/27/16 at 21:00 Linezolid (Zyvox 600mg/D5W (Pmx)) 300 ml @ 300 mls/hr Q12 IVPB Last administered on 11/28/16 20:28; Admin Dose 300 MLS/HR; Start 11/28/16 at 11:00 PIO VEGA Nov 29, 2016 09:40
--- NOTE | 2016-11-29 09:53 | RADRPT ---
PROCEDURE: Chest 1 views. CLINICAL INDICATION: Shortness of breath. TECHNIQUE: AP views of the chest was obtained. COMPARISON: November 27, 2016 FINDINGS: The heart is large. Endotracheal and nasogastric tubes are stable and appear in grossly appropriate location. Right-sided central line is unchanged. Central pulmonary vascular congestion and interst itial prominence in both lungs is observed. Retrocardiac opacity stable. Scattered atelectasis is seen at the right lung base. Osseous structures are intact. IMPRESSION: Cardiomegaly . Stable central pulmonary vascular congestion and interstitial prominence in both lungs. Stable retrocardiac opacity that may reflect left lower lobe atelectasis or infiltrate combined with small pleural effusion. Atelectasis at the right lung base. RPTAT: AA .William Beckwith MD, MD Date Time Electronically viewed and signed by .William Beckwith MD, MD on 11/29/2016 09:53 .P/
[2016-11-29] MEDS ORDERED: MULTIVITAMINS 5 ML CUP NGT SCH (10:00)
[2016-11-29] MEDS: FOLIC ACID 1 MG TAB NGT SCH (10:01)
--- NOTE | 2016-11-29 11:05 | CONS ---
Date/Time of Note Date/Time of Note DATE: 11/29/16 TIME: 10:58 Assessment/Plan Assessment/Plan Additional Assessment/Plan Ventilator setting; AC of 20, tidal volume 500, PEEP of 5, 30% FiO2. Chest x-ray was reviewed from today which is showing endotracheal tube at an adequate level. There is very minimal left lower lobe subsegmental atelectasis. Next Patient currently on fentanyl drip at 50 mics per hour, propofol 10 mics per kilogram per minute. Assessment recommendations; next 1. Patient admitted with cardiac arrest status post emergent coronary angiography with stenting of circumflex lesion. 2. Likely significant anoxic brain injury. Status post CPR 2. 3. Renal insufficiency. 4. Scant left lower lobe pneumonia/atelectasis. 5. History of diabetes hypertension. 6. 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 7. Mild CHF. Next Continue current supportive care. Patient currently is not in a condition to be weaned off from ventilator. Prognosis depends upon adequate mental status recovery. 35 minutes of critical care time was spent evaluating the patient. Consultation Date/Type/Reason Admit Date/Time Nov 19, 2016 at 16:09 Type of Consultation: Pulmonary/critical care Referring Provider: PIO VEGA 24 HR Interval Summary Free Text/Dictation Patient's condition remains critical. Patient has been unable to handle being off sedation with ensuing severe agitation requiring him to be re-sedated. And again failed a weaning trial this morning. Next General exam; middle-aged male, morbidly obese, orally intubated, sedated. Currently in no distress. Exam/Review of Systems Vital Signs Vitals Vital Signs Date Time Temp Pulse Resp B/P Pulse Ox O2 Delivery O2 Flow Rate FiO2 11/29/16 10:40 79 47 100 30 11/29/16 09:00 118/72 Mechanical Ventilator 11/29/16 07:30 98.8 Intake and Output 11/28/16 11/28/16 11/29/16 15:00 23:00 07:00 Intake Total 1070.3 ml 894.8 ml 817 ml Output Total 470 ml 385 ml 330 ml Balance 600.3 ml 509.8 ml 487 ml Exam HEENT exam is; supple neck, positive JVD. No lymphadenopathy. Midline trachea. No thyromegaly. Orally intubated. Patient is edentulous. Pupils are small bilaterally. Chest exam; diminished but clear vessel. S1-S2 audible, no murmurs. Regular rhythm. Abdomen examination; soft, nondistended. No organomegaly. Bowel sounds audible. Extremity examination; no peripheral edema. Pulses 1+ bilaterally. There is gangrene of toes bilaterally. [employer] examination; patient is sedated. Results Result Diagram: 11/29/16 0500 11/29/16 0500 Results 24 hrs Laboratory Tests Test 11/28/16 13:30 11/28/16 16:45 11/28/16 20:00 11/29/16 01:29 Bedside Glucose 151 129 146 130 Test 11/29/16 05:00 11/29/16 05:08 11/29/16 09:28 White Blood Count 15.0 #H Red Blood Count 3.68 L Hemoglobin 11.0 L Hematocrit 35.1 L Mean Corpuscular Volume 95.4 Mean Corpuscular Hemoglobin 29.9 Mean Corpuscular Hemoglobin Concent 31.3 L Red Cell Distribution Width 15.0 H Platelet Count 173 Mean Platelet Volume 12.5 H Neutrophils % 75.3 Lymphocytes % 14.3 L Monocytes % 3.5 Eosinophils % 5.1 Basophils % 0.2 Nucleated Red Blood Cells % 0.0 Neutrophils # 11.3 H Lymphocytes # 2.1 Monocytes # 0.5 Eosinophils # 0.8 H Basophils # 0.0 Nucleated Red Blood Cells # 0.0 Differential Comment AUTO w/SCAN Prothrombin Time 14.0 Prothrombin Time Ratio 1.1 INR International Normalized Ratio 1.08 Activated Partial Thromboplast Time 26.2 Sodium Level 140 Potassium Level 3.8 Chloride Level 108 Carbon Dioxide Level 25 Anion Gap 11 Blood Urea Nitrogen 47 H Creatinine 2.04 H Glucose Level 137 Calcium Level 8.8 Phosphorus Level 3.8 Magnesium Level 2.2 Total Bilirubin 0.2 Direct Bilirubin 0.00 Indirect Bilirubin 0.2 Aspartate Amino Transf (AST/SGOT) 28 Alanine Aminotransferase (ALT/SGPT) 144 H Alkaline Phosphatase 112 Ammonia 18 Total Protein 5.4 L Albumin 2.7 L Globulin 2.70 Albumin/Globulin Ratio 1.00 Bedside Glucose 147 158 Medications Medications Current Medications Aspirin (Halfprin) 81 mg DAILY PO Last administered on 11/29/16t 09:24; Admin Dose 81 MG; Start 11/20/16 at 09:00 Ticagrelor 90 mg 90 mg BID PO Last administered on 11/29/16 09:26; Admin Dose 90 MG; Start 11/19/16 at 21:00 Propofol 100 ml @ 3.818 mls/ hr Q12H IV Last administered on 11/29/16 07:52; Admin Dose 19.091 MLS/HR; Start 11/19/16 at 16:30 Fentanyl (Sublimaze) 100 ml @ 2.5 mls/hr TITRATE IV Last administered on 18:59; Admin Dose 5 MLS/HR; Start 11/19/16 at 17:00 Ondansetron HCl (Zofran Inj) 4 mg Q6H PRN IV NAUSEA AND/OR VOMITING; Start 04/27 at 17:00 Acetaminophen (Tylenol Liquid) 650 mg Q6H PRN PO PAIN LEVEL 1-3 OR FEVER; Start 11/19/16 at 17:00 Acetaminophen (Tylenol Supp) 650 mg Q4H PRN [place] PAIN LEVEL 1-3 OR FEVER; Start 11/19/16 at 17:00 Docusate Sodium (Colace) 100 mg Q12H PRN PO CONSTIPATION; Start 11/19/16 at 17: 00 Magnesium Hydroxide (Milk Of Mag) 30 ml DAILY PRN PO CONSTIPATION Last administered on 11/29/16 09:23; Admin Dose 30 ML; Start 11/19/16 at 17:00 Bisacodyl (Dulcolax Supp) 10 mg DAILY PRN [place] CONSTIPATION Last administered on 11/29/16 09:23; Admin Dose 10 MG; Start 11/19/16 at 17:00 Famotidine (Pepcid Iv) 20 mg DAILY IV Last administered on 11/29/16 09:24; Admin Dose 20 MG; Start 11/19/16 at 17:00 Insulin Aspart (Novolog Insulin Pen) NOVOLOG *MODERATE* ALGORI... Q4 SC Last administered on 11/29/16 09:37; Admin Dose 2 UNIT; Start 11/19/16 at 17:30 Miscellaneous Information 1 ea NOTE XX ; Start 11/19/16 at 17:30 Glucose (Glutose) 15 gm Q15M PRN PO DECREASED GLUCOSE; Start 11/19/16 at 17:30 Glucose (Glutose) 22.5 gm Q15M PRN PO DECREASED GLUCOSE; Start 11/19/16 at 17: 30 Dextrose (D50w Syringe) 25 ml Q15M PRN IV DECREASED GLUCOSE; Start 11/19/16 at 17:30 Dextrose (D50w Syringe) 50 ml Q15M PRN IV DECREASED GLUCOSE; Start 11/19/16 at 17:30 Glucagon (Glucagen) 1 mg Q15M PRN IM DECREASED GLUCOSE; Start 11/19/16 at 17:30 Glucose 15 gm 15 gm Q15M PRN BUCCAL DECREASED GLUCOSE; Start 11/19/16 at 17:30 Norepinephrine/ Dextrose (Levophed/D5W) 500 ml @ 1.875 mls/ hr TITRATE IV Last administered on 11/22/16 01:11; Admin Dose 7.5 MLS/HR; Start 11/20/16 at 19:30 Amiodarone HCl (Cordarone) 200 mg DAILY GTB Last administered on 11/29/16 09: 24; Admin Dose 200 MG; Start 11/23/16 at 09:00 Nystatin (Nystatin Susp) 5 ml QID PO Last administered on 11/29/16 09:23; Admin Dose 5 ML; Start 11/24/16 at 10:30 Fluconazole 100 mg 100 mg DAILY NGT Last administered on 11/29/16 09:24; Admin Dose 100 MG; Start 11/25/16 at 09:00 Piperacillin Sod/ Tazobactam Sod (Zosyn 3.375gm/ 100 ml (Pmx)) 100 ml @ 100 mls /hr Q6 IVPB Last administered on 11/29/16 05:30; Admin Dose 100 MLS/HR; Start 11/24/16 at 12:00 Atorvastatin Calcium (Lipitor) 10 mg HS NGT Last administered on 11/28/16 20: 26; Admin Dose 10 MG; Start 11/24/16 at 21:00 Mupirocin (Bactroban) 1 applic BID TOP Last administered on 11/29/16 09:25; Admin Dose 1 APPLIC; Start 11/27/16 at 09:30 Insulin Glargine (Lantus) 20 unit DAILY@20 SC Last administered on 11/28/16 20 :03; Admin Dose 20 UNIT; Start 11/27/16 at 20:00 Propranolol HCl 10 mg 10 mg TID PO Last administered on 11/29/16 09:24; Admin Dose 10 MG; Start 11/27/16 at 21:00 Linezolid (Zyvox 600mg/D5W (Pmx)) 300 ml @ 300 mls/hr Q12 IVPB Last administered on 11/29/16 09:23; Admin Dose 300 MLS/HR; Start 11/28/16 at 11:00 Thiamine HCl (Vitamin B1) 100 mg DAILY IV ; Start 11/29/16 at 10:00 Folic Acid (Folic Acid) 1 mg DAILY NGT Last administered on 11/29/16 10:01; Admin Dose 1 MG; Start 11/29/16 at 10:00 Multivitamins (Multivitamin) 30 ml DAILY NGT ; Start 11/29/16 at 10:30 ELEONORA LEWIS Nov 29, 2016 11:05
[2016-11-29] MEDS: MULTIVITAMINS 30 ML CUP NGT SCH (11:15)
[2016-11-29] MEDS: THIAMINE 200 MG INJ IV SCH (11:15)
[2016-11-29] MEDS: FENTAnyl (DRIP) 1000 mcg/100mL 100 ML IV SCH (11:15)
[2016-11-29] MEDS ORDERED: AMIODARONE 150MG/D5W BOLUS 100 ML IV ONE (15:30)
[2016-11-29] MEDS ORDERED: AMIODARONE 150MG/D5W BOLUS 100 ML ONE (15:33)
--- NOTE | 2016-11-29 16:01 | CONS ---
Date/Time of Note Date/Time of Note DATE: 11/29/16 TIME: 15:59 Assessment/Plan Assessment/Plan Additional Assessment/Plan 1. Acute kidney injury on possible previous chronic kidney disease with last creatinine known about 1.48 secondary to acute tubular necrosis from ischemic acute tubular necrosis from cardiogenic shock. 2. Acute respiratory failure from cardiogenic shock, currently intubated on ventilator- failed weaning trial due to pulmonary congestion 3. Acute non-ST elevation myocardial infarction, s/p v tach arrest s/p pci of RCA, possible staged procedure to LCx required s/p IABP, now off 4. History of possible chronic kidney disease secondary to diabetic nephropathy , unknown stage. 5. History of type 2 diabetes mellitus. 6. History of hypertension. Plan: remains intubated, ventilator care as per pulmonary Cr 2.04 s/p lasix 20mg IV x 1 yesterday on Free water flush CT head with chronic multiple infarcts and ? hepatic, toxic encephalopathy on Brilinat Post cath will continue to follow up on patient DNR code status no indication for renal replacement therapy at this time Consultation Date/Type/Reason Admit Date/Time Nov 19, 2016 at 16:09 Initial Consult Date Nov Type of Consultation: NEPHROLOGY Referring Provider: PIO VEGA 24 HR Interval Summary Free Text/Dictation pt remains intubated on ventilator, BP stable Exam/Review of Systems Vital Signs Vitals Vital Signs Date Time Temp Pulse Resp B/P Pulse Ox O2 Delivery O2 Flow Rate FiO2 11/29/16 15:00 100 24 84/58 100 Mechanical Ventilator 11/29/16 12:54 30 11/29/16 12:00 98.9 Intake and Output 11/28/16 11/28/16 11/29/16 15:00 23:00 07:00 Intake Total 1070.3 ml 894.8 ml 817 ml Output Total 470 ml 385 ml 330 ml Balance 600.3 ml 509.8 ml 487 ml Exam GENERAL: no acute distress , remains intubated NECK: supple + Et tube LUNGS: Bilateral crackles + HEART: S1, S2, tachycardia, no murmur. ABDOMEN: Soft, morbidly obese. EXTREMITIES: 1 to 2+ pitting edema. No clubbing, cyanosis. NEUROLOGICAL: Uncooperative for exam PSYCHIATRIC: Not able to assess at this point. Results Result Diagram: 11/29/16 0500 11/29/16 0500 Results 24 hrs Laboratory Tests Test 11/28/16 16:45 11/28/16 20:00 11/29/16 01:29 11/29/16 05:00 Bedside Glucose 129 146 130 White Blood Count 15.0 #H Red Blood Count 3.68 L Hemoglobin 11.0 L Hematocrit 35.1 L Mean Corpuscular Volume 95.4 Mean Corpuscular Hemoglobin 29.9 Mean Corpuscular Hemoglobin Concent 31.3 L Red Cell Distribution Width 15.0 H Platelet Count 173 Mean Platelet Volume 12.5 H Neutrophils % 75.3 Lymphocytes % 14.3 L Monocytes % 3.5 Eosinophils % 5.1 Basophils % 0.2 Nucleated Red Blood Cells % 0.0 Neutrophils # 11.3 H Lymphocytes # 2.1 Monocytes # 0.5 Eosinophils # 0.8 H Basophils # 0.0 Nucleated Red Blood Cells # 0.0 Differential Comment AUTO w/SCAN Prothrombin Time 14.0 Prothrombin Time Ratio 1.1 INR International Normalized Ratio 1.08 Activated Partial Thromboplast Time 26.2 Sodium Level 140 Potassium Level 3.8 Chloride Level 108 Carbon Dioxide Level 25 Anion Gap 11 Blood Urea Nitrogen 47 H Creatinine 2.04 H Glucose Level 137 Calcium Level 8.8 Phosphorus Level 3.8 Magnesium Level 2.2 Total Bilirubin 0.2 Direct Bilirubin 0.00 Indirect Bilirubin 0.2 Aspartate Amino Transf (AST/SGOT) 28 Alanine Aminotransferase (ALT/SGPT) 144 H Alkaline Phosphatase 112 Ammonia 18 Total Protein 5.4 L Albumin 2.7 L Globulin 2.70 Albumin/Globulin Ratio 1.00 Test 11/29/16 05:08 11/29/16 09:28 11/29/16 13:42 Bedside Glucose 147 158 151 Medications Medications Current Medications Aspirin (Halfprin) 81 mg DAILY PO Last administered on 11/29/16 09:24; Admin Dose 81 MG; Start 11/20/16 at 09:00 Ticagrelor 90 mg 90 mg BID PO Last administered on 11/29/16 09:26; Admin Dose 90 MG; Start 11/19/16 at 21:00 Propofol 100 ml @ 3.818 mls/ hr Q12H IV Last administered on 11/29/16 13:40; Admin Dose 15.272 MLS/HR; Start 11/19/16 at 16:30 Fentanyl (Sublimaze) 100 ml @ 2.5 mls/hr TITRATE IV Last administered on 11:15; Admin Dose 7.5 MLS/HR; Start 11/19/16 at 17:00 Ondansetron HCl (Zofran Inj) 4 mg Q6H PRN IV NAUSEA AND/OR VOMITING; Start 04/27 at 17:00 Acetaminophen (Tylenol Liquid) 650 mg Q6H PRN PO PAIN LEVEL 1-3 OR FEVER; Start 11/19/16 at 17:00 Acetaminophen (Tylenol Supp) 650 mg Q4H PRN AL PAIN LEVEL 1-3 OR FEVER; Start 11/19/16 at 17:00 Docusate Sodium (Colace) 100 mg Q12H PRN PO CONSTIPATION; Start 11/19/16 at 17: 00 Magnesium Hydroxide (Milk Of Mag) 30 ml DAILY PRN PO CONSTIPATION Last administered on 11/29/16 09:23; Admin Dose 30 ML; Start 11/19/16 at 17:00 Bisacodyl (Dulcolax Supp) 10 mg DAILY PRN AL CONSTIPATION Last administered on 11/29/16 09:23; Admin Dose 10 MG; Start 11/19/16 at 17:00 Famotidine (Pepcid Iv) 20 mg DAILY IV Last administered on 11/29/16 09:24; Admin Dose 20 MG; Start 11/19/16 at 17:00 Insulin Aspart (Novolog Insulin Pen) NOVOLOG *MODERATE* ALGORI... Q4 SC Last administered on 11/29/16 13:50; Admin Dose 2 UNIT; Start 11/19/16 at 17:30 Miscellaneous Information 1 ea NOTE XX ; Start 11/19/16 at 17:30 Glucose (Glutose) 15 gm Q15M PRN PO DECREASED GLUCOSE; Start 11/19/16 at 17:30 Glucose (Glutose) 22.5 gm Q15M PRN PO DECREASED GLUCOSE; Start 11/19/16 at 17: 30 Dextrose (D50w Syringe) 25 ml Q15M PRN IV DECREASED GLUCOSE; Start 11/19/16 at 17:30 Dextrose (D50w Syringe) 50 ml Q15M PRN IV DECREASED GLUCOSE; Start 11/19/16 at 17:30 Glucagon (Glucagen) 1 mg Q15M PRN IM DECREASED GLUCOSE; Start 11/19/16 at 17:30 Glucose 15 gm 15 gm Q15M PRN BUCCAL DECREASED GLUCOSE; Start 11/19/16 at 17:30 Norepinephrine/ Dextrose (Levophed/D5W) 500 ml @ 1.875 mls/ hr TITRATE IV Last administered on 11/22/16 01:11; Admin Dose 7.5 MLS/HR; Start 11/20/16 at 19:30 Amiodarone HCl (Cordarone) 200 mg DAILY GTB Last administered on 11/29/16 09: 24; Admin Dose 200 MG; Start 11/23/16 at 09:00 Nystatin (Nystatin Susp) 5 ml QID PO Last administered on 11/29/16 13:40; Admin Dose 5 ML; Start 11/24/16 at 10:30 Fluconazole 100 mg 100 mg DAILY NGT Last administered on 11/29/16 09:24; Admin Dose 100 MG; Start 11/25/16 at 09:00 Piperacillin Sod/ Tazobactam Sod (Zosyn 3.375gm/ 100 ml (Pmx)) 100 ml @ 100 mls /hr Q6 IVPB Last administered on 11/29/16 11:15; Admin Dose 100 MLS/HR; Start 11/24/16 at 12:00 Atorvastatin Calcium (Lipitor) 10 mg HS NGT Last administered on 11/28/16 20: 26; Admin Dose 10 MG; Start 11/24/16 at 21:00 Mupirocin (Bactroban) 1 applic BID TOP Last administered on 11/29/16 09:25; Admin Dose 1 APPLIC; Start 11/27/16 at 09:30 Insulin Glargine (Lantus) 20 unit DAILY@20 SC Last administered on 11/28/16 20 :03; Admin Dose 20 UNIT; Start 11/27/16 at 20:00 Propranolol HCl 10 mg 10 mg TID PO Last administered on 11/29/16 13:46; Admin Dose 10 MG; Start 11/27/16 at 21:00 Linezolid (Zyvox 600mg/D5W (Pmx)) 300 ml @ 300 mls/hr Q12 IVPB Last administered on 11/29/16 09:23; Admin Dose 300 MLS/HR; Start 11/28/16 at 11:00 Thiamine HCl (Vitamin B1) 100 mg DAILY IV Last administered on 11/29/16 11:15 ; Admin Dose 100 MG; Start 11/29/16 at 10:00 Folic Acid (Folic Acid) 1 mg DAILY NGT Last administered on 11/29/16 10:01; Admin Dose 1 MG; Start 11/29/16 at 10:00 Multivitamins (Multivitamin) 30 ml DAILY NGT Last administered on 11/29/16 11: 15; Admin Dose 30 ML; Start 11/29/16 at 10:30 FÁTIMA PERES MD Nov 29, 2016 16:01
[2016-11-29] MEDS: ATORVASTATIN 10 MG TAB NGT SCH (20:25)
[2016-11-29] MEDS: INSULIN GLARGINE [LANtus] 3 ML PEN SC SCH (20:31)
[2016-11-29] MEDS ORDERED: MAGNESIUM SULFATE 2 GM/50 ML 50 ML IVPB ONE (21:00)
[2016-11-30] VITALS (50 sets, daily range): BP systolic 70–139; BP diastolic 10–87; PULSE 47–65; RESP 14–25
[2016-11-30] MEDS: PIPER-TAZO 3.375 GM IV (PMX) 100 ML IVPB SCH ×4 (00:03→17:45)
[2016-11-30] MEDS: FENTAnyl (DRIP) 1000 mcg/100mL 100 ML IV SCH ×2 (00:25→17:44)
[2016-11-30] MEDS: INSULIN ASPART [NOVOLOG] 3 ML PEN SC SCH ×6 (01:26→21:00)
[2016-11-30] MEDS: PROPOFOL 100 ML IV SCH ×3 (06:24→22:44)
[2016-11-30 06:40] LABS: ADD SCAN DIFF NO
[2016-11-30 06:42] LABS: BASOPHIL # 0.1 10^3/ul (0.0-0.1); BASOPHILS % 0.4 % (0.0-2.0); EOSINOPHILS # 0.8 10^3/ul (0.0-0.5); EOSINOPHILS % 6.4 % (0.0-7.0); HEMATOCRIT 33.1 % (42.0-52.0); HEMOGLOBIN 10.2 g/dl (14.0-18.0); LYMPHOCYTES # 2.6 10^3/ul (0.8-2.9); LYMPHOCYTES % 21.4 % (15.0-51.0); MEAN CORPUSCULAR HEMOGLOBIN 29.7 pg (29.0-33.0); MEAN CORPUSCULAR HGB CONC 30.8 g/dl (32.0-37.0); MEAN CORPUSCULAR VOLUME 96.5 fl (82.0-101.0); MEAN PLATELET VOLUME 12.5 fl (7.4-10.4); MONOCYTE # 0.6 10^3/ul (0.3-0.9); MONOCYTES % 5.3 % (0.0-11.0); NEUTROPHIL # 7.9 10^3/ul (1.6-7.5); PLATELET COUNT 196 10^3/UL (140-415); RED BLOOD COUNT 3.43 10^6/ul (4.70-6.10); WHITE BLOOD COUNT 12.2 10^3/ul (4.8-10.8)
[2016-11-30 07:10] LABS: ALBUMIN 2.7 g/dl (3.3-4.9); ALBUMIN/GLOBULIN RATIO 0.96; BILIRUBIN,INDIRECT 0.1 mg/dl (0-1.1); BILIRUBIN,TOTAL 0.1 mg/dl (0.2-1.3); CALCIUM 8.8 mg/dl (8.4-10.2); CREATININE 1.97 mg/dl (0.61-1.24); POTASSIUM 3.6 mmol/L (3.5-5.1); TOTAL PROTEIN 5.5 g/dl (6.1-8.1)
[2016-11-30 07:15] LABS: MAGNESIUM 2.8 mg/dl (1.7-2.5); PHOSPHORUS 3.6 mg/dl (2.5-4.9)
[2016-11-30] MEDS ORDERED: POTASSIUM CHLORIDE 20 MEQ POWDER FOR ORAL SOLN PO STA (08:12)
[2016-11-30] MEDS ORDERED: POTASSIUM CHLORIDE 20 MEQ POWDER FOR ORAL SOLN NGT STA (08:12)
--- NOTE | 2016-11-30 08:14 | PN ---
DATE: 11/29/2016 CARDIOLOGY FOLLOWUP PROGRESS NOTE SUBJECTIVE: Discussed with the staff. Rhythm strip was reviewed. The patient has converted back t o sinus rhythm. However, has had frequent PVCs as well as PACs. Remains intubated on the vent, off of any pressors though. Still agitated and confused when he wakes up. MEDICATIONS: Reviewed, which include: 1. Linezolid. 2. Propranolol 10 t.i.d. which most of the time has had to be held. 3. Insulin. 4. Diflucan. 5. Lipitor. 6. Zosyn. 7. Amiodarone 200. 8. Aspirin. 9. Brilinta. PHYSICAL EXAMINATION: VITAL SIGNS: Temperature 98.8, heart rate of 70, blood pressure of 114/72, respiratory rate of 24, saturating 98%. HEENT: Normocephalic, atraumatic. Obese gentleman. Pupils equal and round. Status post intubatio n on the vent. CARDIOVASCULAR: Regular rate and rhythm, systolic murmur. PULMONARY: Anteriorly with no wheezes heard. Minimal rhonchi at the base. GASTROINTESTINAL: Soft, nontender. EXTREMITIES: With positive trivial edema, positive necrosis of the toes. NEUROLOGIC: Opens his eyes. However, does not appear to be following any commands. LABORATORY: WBC of 15, hemoglobin 11.0, platelets of 173. Sodium 140, potassium 3.8, BUN of 47, cr eatinine of 2.04, glucose of 137. Albumin is 2.7. INR is back down to 1.08. ASSESSMENT AND PLAN: 1. Status post cardiopulmonary arrest. 2. Sustained ventricular tachycardia status post cardioversion. 3. Status post myocardial infarction, ST elevation, with 100% occlusion of the obtuse marginal, sta tus post complicated PCI of obtuse marginal. 4. Ischemic cardiomyopathy. 5. Hypoxemic respiratory failure status post intubation. 6. History of cerebrovascular accident based on the old CTs. 7. Renal failure, probably back to his baseline now. 8. Shock liver has improved. 9. Paroxysmal atrial fibrillation, back to sinus rhythm now again. 10. Pneumonia. RECOMMENDATIONS: We will continue with the current cardiac care. Diabetic management as per winter intern al medicine. Vent support will be continued. Weaning as tolerated. Activity as tolerated. Neurol ogically has been issued, unable to extubate him so far. We will continue to closely monitor him in the intensive care unit. ____ NORMA inhibitor ____ renal failure. Consider a neurology consultation as well. ____ will be continued for now. Antibiotic management as per internal medicine. Aspirin and Brilinta will be continued. More than 39 minutes of critical care time was spent in management of this patient excluding any pro cedures. Dictated By: SERENA ALCARAZ MD AV/NTS Conf#: [id number] DID#: [id number] CC: PIO VEGA MD;*EndCC*
[2016-11-30] MEDS: LINEZOLID 600 MG/D5W (PMX) 300 ML IVPB SCH ×2 (08:50→20:05)
[2016-11-30] MEDS: FOLIC ACID 1 MG TAB NGT SCH (08:50)
[2016-11-30] MEDS: FLUCONAZOLE 100 MG TAB NGT SCH (08:50)
[2016-11-30] MEDS: THIAMINE 200 MG INJ IV SCH (08:50)
[2016-11-30] MEDS: ASPIRIN (EC) 81 MG TAB PO SCH (08:50)
[2016-11-30] MEDS: FAMOTIDINE 20 MG INJ IV SCH (08:50)
[2016-11-30] MEDS: MULTIVITAMINS 30 ML CUP NGT SCH (08:51)
[2016-11-30] MEDS: AMIODARONE 200 MG TAB GTB SCH (08:51)
[2016-11-30] MEDS: NYSTATIN SUSP 5 ML CUP PO SCH ×4 (08:51→20:06)
--- NOTE | 2016-11-30 08:53 | PN ---
DATE: 11/30/2016 CARDIOLOGY FOLLOWUP SUBJECTIVE: Discussed with the staff. Rhythm strip was reviewed. Events noted. The patient with repeated episodes of PVCs and has also had a long episode of sustained VT of about 4 minutes. Blood pressure was stable at the time, he did not require to be cardioverted, spontaneously converted grant k to sinus rhythm. I have given him a dose bolus of amiodarone yesterday. He has remained in sinus rhythm since that episode. PVCs have subsided now. However, he has become sinus sheba. Still int ubated, on the vent and does not respond. MEDICATIONS: Reviewed, as per medical reconciliation sheet, which was personally reviewed. PHYSICAL EXAMINATION: VITAL SIGNS: Temperature 98.5, heart rate of 50, blood pressure of 98/59, respiratory rate of 20, s aturating 100%. HEENT: Normocephalic, atraumatic. Pupils are equal and round. Status post intubation, on the vent . GENERAL: Obese gentleman, intubated, in the ICU. CARDIOVASCULAR: Bradycardic. A systolic murmur. PULMONARY: With no wheezes, no rhonchi. GASTROINTESTINAL: Soft, nontender. EXTREMITIES: Positive lower extremity edema. DERMATOLOGIC: There is positive necrosis of the toes. NEUROLOGIC: He opens his eyes to painful stimuli. He does not answer questions, does not follow co mmands. LABORATORY: Sodium 141, potassium 3.6, BUN of 48, creatinine 1.97, glucose of 121. Albumin is 2.7. WBC 12.2, hemoglobin 10.2, platelets of 196. Chest x-ray was personally reviewed as well, which kaelyn rivera, per radiology, reported as stable. Significant for pulmonary vascular congestion, interstitia l prominence in both lungs, stable retrocardiac opacity. ASSESSMENT AND PLAN: 1. Status post cardiopulmonary arrest secondary to ventricular tachycardia arrest. 2. Status post STEMI and PCI of the left circumflex artery. 3. Recurrence of sustained ventricular tachycardia. 4. Encephalopathy. 5. Renal failure, probably acute on chronic, actually improved since admission. 6. Ischemic changes of the bilateral toes, probably secondary to diffuse ischemia. 7. Shock liver. Has significantly improved now, with LFTs improving. 8. Dyslipidemia. 9. History of possible drug use, per brother's report. RECOMMENDATIONS: Will continue with the ICU care. Antibiotics will be managed as per internal medi cine. Beta mike as tolerated, currently on hold due to low heart rate. Statin will be continued . Code status is DNR now. Continue on vent support. Weaning trial as tolerated. Will replace potassium as well. More than 38 minutes of critical care time was spent managing this patient, excluding any procedures . Dictated By: SERENA ALCARAZ MD AV/JUANY Conf#: [id number] DID#: [id number] CC: PIO VEGA MD;*EndCC*
[2016-11-30] MEDS: TICAGRELOR 90 MG TABLET PO SCH ×2 (08:58→20:07)
[2016-11-30] MEDS: PROPRANOLOL 10 MG TAB PO SCH ×3 (08:59→21:00)
[2016-11-30] MEDS: MUPIROCIN 2% 22 GM OINT TOP SCH ×2 (09:00→20:05)
[2016-11-30 09:37] LABS: CREATINE KINASE < 20 IU/L (23-200)
[2016-11-30 09:55] LABS: CK-MB 1.17 ng/ml (0.0-2.4)
[2016-11-30 09:57] LABS: TROPONIN-I 0.902 ng/ml (0.00-0.12)
--- NOTE | 2016-11-30 10:51 | PN ---
Date/Time of Note Date/Time of Note DATE: 11/30/16 TIME: 10:36 Assessment/Plan VTE Prophylaxis VTE Prophylaxis Intervention: SCD's Lines/Catheters IV Catheter Type (from Nrsg): Central Line Central line still needed: Yes (for IV access ) Urinary Cath still in place: Yes Reason Cath still needed: other (indicate) (NEHA and monitoring UOP ) Assessment/Plan Assessment/Plan 56-year-old male with: 1. ST elevation myocardial infarction with a hemodynamic instability, status post ventricular tachycardia, cardioverted status post angiogram with PCI to the circumflex. On Fentanyl and Propofol for sedation Hemodynamically stable but still with significant encephalopathy when on sedation vacation. Currently to be re evaluated and also MRI brain pending as CT head showing chronic findings only. Brief episode of Vtach overnight resolved. Dr. Simeon following, on Brilinta and ASA. On po Amio. Pulmonary critical care following 2. Acute respiratory failure secondary to cardiogenic shock and ST elevation myocardial infarction. Also with history of chronic obstructive pulmonary disease Intubated and sedated on Fentanyl and Propofol, not ready for extubation, restless but not following commands. CXR with CHF exacerbation, OFF IVF now and prn Lasix doses. On Zosyn with Klebsiella and MSSA on sputum cx, and also on Zyvox. WBC trending down. Pulmonary for Vent management. On tube feedings 3. Acute kidney injury on probable chronic kidney disease, likely secondary to acute tubular necrosis in this situation. Monitor Renal function still improving, off IVF and diuretics prn . Repleting electrolytes prn, UOP still OK Renal US mostly unremarkable Nephrology, Dr Welch following. 4. Encephalopathy with reported hx of drug use (cocaine, bath salts..) and heavy alcohol use. sedation vacation today, CT head results noted with findings of chronic infarcts (per Brother, patient had hx of multiple CVAs), ? embolic in nature, given PAF, will need anticoagulation, currently on dual antiplatelets already .. will discuss with Cardiology Ammonia wnl. MRI pending Continue thiamine IV, Folic Acid and MVI 5. Acute ischemic changes b/l toes, now seems better perfused but likely embolic events with angio. Pulses present 6. Shock Liver, with elevated LFTs and coagulopathy currently. Resolving. Avoiding hepatotoxic agents. 7. Diabetes mellitus. His blood sugars are fairly stable. A1c 7.1 Continue sliding scale insulin and Lantus to 20 units, continue SSI while on TF 8. Thrush: on Nystatin and Diflucan 9. Obstructive sleep apnea on CPAP at night as outpatient. 10. Tobacco use. Hopefully the patient will quit after this. Nicotine patch today. Prophylaxis. Pepcid for GI ppx and SCDs. DISPOSITION: Guarded prognosis still and patient remains critical. Brother Jv was tracked down, he lives in [facility] and confirmed patient has been chronically ill and also active drug abuser including alcoholic, bath salts, ? speed (also hx of dealing cocaine, bath salts?) . Discussed condition and current prognosis with Brother Jv, and per brother patient to be DNR Subjective 24 Hr Interval Summary Free Text/Dictation Patient still with MS being an obstacle to extubation so far but Brother already voiced no tracheostomy and if not able to extubate will move to comfort measures Afebrile and cardiology following re episode of V tach last night Exam/Review of Systems Vital Signs Vitals Vital Signs Date Time Temp Pulse Resp B/P Pulse Ox O2 Delivery O2 Flow Rate FiO2 11/30/16 09:30 54 20 115/76 100 11/30/16 09:00 Mechanical Ventilator 11/30/16 08:00 97.9 11/30/16 08:00 30 Intake and Output 11/29/16 11/29/16 11/30/16 15:00 23:00 07:00 Intake Total 940.2 ml 942.3 ml 571.2 ml Output Total 365 ml 440 ml 335 ml Balance 575.2 ml 502.3 ml 236.2 ml Exam Constitutional: other (on minimal sedation and opening eyes tracking but not following commands ) Respiratory: diminished breath sounds (bases ), other (on Vent ) Cardiovascular: nl pulses, other, regular rate and rhythm Gastrointestinal: non-tender, other (tolerated TF), soft Musculoskeletal: other (toes ischemia improving ) Extremities: normal pulses Neurological: WATER PUMP OPERATOR II-XII intact, other (sedated and intubated ) Results Result Diagram: 11/30/160 11/30/160 Results 24 hrs Laboratory Tests Test 11/29/16 13:42 11/29/16 17:34 11/29/16 20:23 11/30/16 01:23 Bedside Glucose 151 141 134 157 Test 11/30/16 04:40 11/30/16 05:31 11/30/16 08:49 White Blood Count 12.2 H Red Blood Count 3.43 L Hemoglobin 10.2 L Hematocrit 33.1 L Mean Corpuscular Volume 96.5 Mean Corpuscular Hemoglobin 29.7 Mean Corpuscular Hemoglobin Concent 30.8 L Red Cell Distribution Width 15.0 H Platelet Count 196 Mean Platelet Volume 12.5 H Neutrophils % 65.0 Lymphocytes % 21.4 Monocytes % 5.3 Eosinophils % 6.4 Basophils % 0.4 Nucleated Red Blood Cells % 0.0 Neutrophils # 7.9 H Lymphocytes # 2.6 Monocytes # 0.6 Eosinophils # 0.8 H Basophils # 0.1 Nucleated Red Blood Cells # 0.0 Sodium Level 141 Potassium Level 3.6 Chloride Level 109 Carbon Dioxide Level 27 Anion Gap 9 Blood Urea Nitrogen 48 H Creatinine 1.97 H Glucose Level 121 Calcium Level 8.8 Phosphorus Level 3.6 Magnesium Level 2.8 H Total Bilirubin 0.1 L Direct Bilirubin 0.00 Indirect Bilirubin 0.1 Aspartate Amino Transf (AST/SGOT) 41 Alanine Aminotransferase (ALT/SGPT) 125 H Alkaline Phosphatase 103 Creatine Kinase < 20 L Creatine Kinase Index Creatinine Kinase MB (Mass) 1.17 Troponin I 0.902 *H Total Protein 5.5 L Albumin 2.7 L Globulin 2.80 Albumin/Globulin Ratio 0.96 Bedside Glucose 121 114 Medications Medications Current Medications Aspirin (Halfprin) 81 mg DAILY PO Last administered on 11/30/16 08:50; Admin Dose 81 MG; Start 11/20/16 at 09:00 Ticagrelor 90 mg 90 mg BID PO Last administered on 11/30/16 08:58; Admin Dose 90 MG; Start 11/19/16 at 21:00 Propofol 100 ml @ 3.818 mls/ hr Q12H IV Last administered on 11/30/16 06:24; Admin Dose 7.636 MLS/HR; Start 11/19/16 at 16:30 Fentanyl (Sublimaze) 100 ml @ 2.5 mls/hr TITRATE IV Last administered on 00:25; Admin Dose 5 MLS/HR; Start 11/19/16 at 17:00 Ondansetron HCl (Zofran Inj) 4 mg Q6H PRN IV NAUSEA AND/OR VOMITING; Start 04/27 at 17:00 Acetaminophen (Tylenol Liquid) 650 mg Q6H PRN PO PAIN LEVEL 1-3 OR FEVER; Start 11/19/16 at 17:00 Acetaminophen (Tylenol Supp) 650 mg Q4H PRN ME PAIN LEVEL 1-3 OR FEVER; Start 11/19/16 at 17:00 Docusate Sodium (Colace) 100 mg Q12H PRN PO CONSTIPATION; Start 11/19/16 at 17: 00 Magnesium Hydroxide (Milk Of Mag) 30 ml DAILY PRN PO CONSTIPATION Last administered on 11/29/16 09:23; Admin Dose 30 ML; Start 11/19/16 at 17:00 Bisacodyl (Dulcolax Supp) 10 mg DAILY PRN ME CONSTIPATION Last administered on 11/29/16 09:23; Admin Dose 10 MG; Start 11/19/16 at 17:00 Famotidine (Pepcid Iv) 20 mg DAILY IV Last administered on 11/30/16 08:50; Admin Dose 20 MG; Start 11/19/16 at 17:00 Insulin Aspart (Novolog Insulin Pen) NOVOLOG *MODERATE* ALGORI... Q4 SC Last administered on 11/30/16 01:26; Admin Dose 2 UNIT; Start 11/19/16 at 17:30 Miscellaneous Information 1 ea NOTE XX ; Start 11/19/16 at 17:30 Glucose (Glutose) 15 gm Q15M PRN PO DECREASED GLUCOSE; Start 11/19/16 at 17:30 Glucose (Glutose) 22.5 gm Q15M PRN PO DECREASED GLUCOSE; Start 11/19/16 at 17: 30 Dextrose (D50w Syringe) 25 ml Q15M PRN IV DECREASED GLUCOSE; Start 11/19/16 at 17:30 Dextrose (D50w Syringe) 50 ml Q15M PRN IV DECREASED GLUCOSE; Start 11/19/16 at 17:30 Glucagon (Glucagen) 1 mg Q15M PRN IM DECREASED GLUCOSE; Start 11/19/16 at 17:30 Glucose 15 gm 15 gm Q15M PRN BUCCAL DECREASED GLUCOSE; Start 11/19/16 at 17:30 Norepinephrine/ Dextrose (Levophed/D5W) 500 ml @ 1.875 mls/ hr TITRATE IV Last administered on 11/22/16 01:11; Admin Dose 7.5 MLS/HR; Start 11/20/16 at 19:30 Amiodarone HCl (Cordarone) 200 mg DAILY GTB Last administered on 11/30/16 08: 51; Admin Dose 200 MG; Start 11/23/16 at 09:00 Nystatin (Nystatin Susp) 5 ml QID PO Last administered on 11/30/16 08:51; Admin Dose 5 ML; Start 11/24/16 at 10:30 Fluconazole 100 mg 100 mg DAILY NGT Last administered on 11/30/16 08:50; Admin Dose 100 MG; Start 11/25/16 at 09:00 Piperacillin Sod/ Tazobactam Sod (Zosyn 3.375gm/ 100 ml (Pmx)) 100 ml @ 100 mls /hr Q6 IVPB Last administered on 11/30/16 05:41; Admin Dose 100 MLS/HR; Start 11/24/16 at 12:00 Atorvastatin Calcium (Lipitor) 10 mg HS NGT Last administered on 11/29/16 20: 25; Admin Dose 10 MG; Start 11/24/16 at 21:00 Mupirocin (Bactroban) 1 applic BID TOP Last administered on 11/30/16 09:00; Admin Dose 1 APPLIC; Start 11/27/16 at 09:30 Insulin Glargine (Lantus) 20 unit DAILY@20 SC Last administered on 11/29/16 20 :31; Admin Dose 20 UNIT; Start 11/27/16 at 20:00 Propranolol HCl 10 mg 10 mg TID PO Last administered on 11/29/16 20:24; Admin Dose 10 MG; Start 11/27/16 at 21:00 Linezolid (Zyvox 600mg/D5W (Pmx)) 300 ml @ 300 mls/hr Q12 IVPB Last administered on 11/30/16 08:50; Admin Dose 300 MLS/HR; Start 11/28/16 at 11:00 Thiamine HCl (Vitamin B1) 100 mg DAILY IV Last administered on 11/30/16 08:50 ; Admin Dose 100 MG; Start 11/29/16 at 10:00 Folic Acid (Folic Acid) 1 mg DAILY NGT Last administered on 11/30/16 08:50; Admin Dose 1 MG; Start 11/29/16 at 10:00 Multivitamins (Multivitamin) 30 ml DAILY NGT Last administered on 11/30/16t 08: 51; Admin Dose 30 ML; Start 11/29/16 at 10:30 PIO VEGA Nov 30, 2016 10:46
--- NOTE | 2016-11-30 10:55 | CONS ---
Date/Time of Note Date/Time of Note DATE: 11/30/16 TIME: 10:51 Assessment/Plan Assessment/Plan Additional Assessment/Plan Ventilator setting; AC of 20, tidal volume 500, PEEP of 5, 30% FiO2. Chest x-ray was reviewed which is showing improvement in bilateral pneumonia. Mild pulmonary edema is present. Patient currently on propofol drip at 10 mics per kilo per minute. Fentanyl drip at 50 mics per hour. Assessment recommendations; 1. Patient admitted with cardiac arrest status post CPR 2. 2. Likely some element of anoxic brain injury. Precluding weaning from ventilator. 3. Renal insufficiency. 4. History of diabetes and hypertension. 5. Bilateral toe gangrene, however patient does have excellent peripheral pulses. Gangrene likely from high-dose pressor requirement during initial treatment phase. 6. Failure to be weaned from ventilator. Continue current supportive care. Prognosis is poor. Consultation Date/Type/Reason Admit Date/Time Nov 19, 2016 at 16:09 Type of Consultation: Pulmonary/critical care Referring Provider: PIO VEGA 24 HR Interval Summary Free Text/Dictation Patient's condition remains critical. Patient has been unable to be weaned off from ventilator despite numerous attempts because of severe agitation off sedation. General exam; middle-aged male, on ventilator via endotracheal tube. Sedated. Currently in no distress. Exam/Review of Systems Vital Signs Vitals Vital Signs Date Time Temp Pulse Resp B/P Pulse Ox O2 Delivery O2 Flow Rate FiO2 11/30/16 09:30 54 20 115/76 100 11/30/16 09:00 Mechanical Ventilator 11/30/16 08:00 97.9 11/30/16 08:00 30 Intake and Output 11/29/16 11/29/16 11/30/16 15:00 23:00 07:00 Intake Total 940.2 ml 942.3 ml 571.2 ml Output Total 365 ml 440 ml 335 ml Balance 575.2 ml 502.3 ml 236.2 ml Exam HEENT exam; supple neck, no JVD. No lymphadenopathy. Midline trachea. No thyromegaly. Orally intubated. Patient is edentulous. Pupils are small bilaterally. Chest examined; diminished but clear vessel. S1-S2 audible, no murmurs. Regular rhythm. Abdomen exam is; soft, no organomegaly. Protuberant. Bowel sounds audible. Extremity exam; trace generalized anasarca. Pulses 1+ bilaterally. Next REPTILE KEEPER examination; patient is sedated. Results Result Diagram: 11/30/16 0440 11/30/16 0440 Results 24 hrs Laboratory Tests Test 11/29/16 13:42 11/29/16 17:34 11/29/16 20:23 11/30/16 01:23 Bedside Glucose 151 141 134 157 Test 11/30/16 04:40 11/30/16 05:31 11/30/16 08:49 White Blood Count 12.2 H Red Blood Count 3.43 L Hemoglobin 10.2 L Hematocrit 33.1 L Mean Corpuscular Volume 96.5 Mean Corpuscular Hemoglobin 29.7 Mean Corpuscular Hemoglobin Concent 30.8 L Red Cell Distribution Width 15.0 H Platelet Count 196 Mean Platelet Volume 12.5 H Neutrophils % 65.0 Lymphocytes % 21.4 Monocytes % 5.3 Eosinophils % 6.4 Basophils % 0.4 Nucleated Red Blood Cells % 0.0 Neutrophils # 7.9 H Lymphocytes # 2.6 Monocytes # 0.6 Eosinophils # 0.8 H Basophils # 0.1 Nucleated Red Blood Cells # 0.0 Sodium Level 141 Potassium Level 3.6 Chloride Level 109 Carbon Dioxide Level 27 Anion Gap 9 Blood Urea Nitrogen 48 H Creatinine 1.97 H Glucose Level 121 Calcium Level 8.8 Phosphorus Level 3.6 Magnesium Level 2.8 H Total Bilirubin 0.1 L Direct Bilirubin 0.00 Indirect Bilirubin 0.1 Aspartate Amino Transf (AST/SGOT) 41 Alanine Aminotransferase (ALT/SGPT) 125 H Alkaline Phosphatase 103 Creatine Kinase < 20 L Creatine Kinase Index Creatinine Kinase MB (Mass) 1.17 Troponin I 0.902 *H Total Protein 5.5 L Albumin 2.7 L Globulin 2.80 Albumin/Globulin Ratio 0.96 Bedside Glucose 121 114 Medications Medications Current Medications Aspirin (Halfprin) 81 mg DAILY PO Last administered on 11/30/16 08:50; Admin Dose 81 MG; Start 11/20/16 at 09:00 Ticagrelor 90 mg 90 mg BID PO Last administered on 11/30/16 08:58; Admin Dose 90 MG; Start 11/19/16 at 21:00 Propofol 100 ml @ 3.818 mls/ hr Q12H IV Last administered on 11/30/16 06:24; Admin Dose 7.636 MLS/HR; Start 11/19/16 at 16:30 Fentanyl (Sublimaze) 100 ml @ 2.5 mls/hr TITRATE IV Last administered on 00:25; Admin Dose 5 MLS/HR; Start 11/19/16 at 17:00 Ondansetron HCl (Zofran Inj) 4 mg Q6H PRN IV NAUSEA AND/OR VOMITING; Start 04/27 at 17:00 Acetaminophen (Tylenol Liquid) 650 mg Q6H PRN PO PAIN LEVEL 1-3 OR FEVER; Start 11/19/16 at 17:00 Acetaminophen (Tylenol Supp) 650 mg Q4H PRN MS PAIN LEVEL 1-3 OR FEVER; Start 11/19/16 at 17:00 Docusate Sodium (Colace) 100 mg Q12H PRN PO CONSTIPATION; Start 11/19/16 at 17: 00 Magnesium Hydroxide (Milk Of Mag) 30 ml DAILY PRN PO CONSTIPATION Last administered on 11/29/16 09:23; Admin Dose 30 ML; Start 11/19/16 at 17:00 Bisacodyl (Dulcolax Supp) 10 mg DAILY PRN MS CONSTIPATION Last administered on 11/29/16 09:23; Admin Dose 10 MG; Start 11/19/16 at 17:00 Famotidine (Pepcid Iv) 20 mg DAILY IV Last administered on 11/30/16 08:50; Admin Dose 20 MG; Start 11/19/16 at 17:00 Insulin Aspart (Novolog Insulin Pen) NOVOLOG *MODERATE* ALGORI... Q4 SC Last administered on 11/30/16 01:26; Admin Dose 2 UNIT; Start 11/19/16 at 17:30 Miscellaneous Information 1 ea NOTE XX ; Start 11/19/16 at 17:30 Glucose (Glutose) 15 gm Q15M PRN PO DECREASED GLUCOSE; Start 11/19/16 at 17:30 Glucose (Glutose) 22.5 gm Q15M PRN PO DECREASED GLUCOSE; Start 11/19/16 at 17: 30 Dextrose (D50w Syringe) 25 ml Q15M PRN IV DECREASED GLUCOSE; Start 11/19/16 at 17:30 Dextrose (D50w Syringe) 50 ml Q15M PRN IV DECREASED GLUCOSE; Start 11/19/16 at 17:30 Glucagon (Glucagen) 1 mg Q15M PRN IM DECREASED GLUCOSE; Start 11/19/16 at 17:30 Glucose 15 gm 15 gm Q15M PRN BUCCAL DECREASED GLUCOSE; Start 11/19/16 at 17:30 Norepinephrine/ Dextrose (Levophed/D5W) 500 ml @ 1.875 mls/ hr TITRATE IV Last administered on 11/22/16 01:11; Admin Dose 7.5 MLS/HR; Start 11/20/16 at 19:30 Amiodarone HCl (Cordarone) 200 mg DAILY GTB Last administered on 11/30/16 08: 51; Admin Dose 200 MG; Start 11/23/16 at 09:00 Nystatin (Nystatin Susp) 5 ml QID PO Last administered on 11/30/16 08:51; Admin Dose 5 ML; Start 11/24/16 at 10:30 Fluconazole 100 mg 100 mg DAILY NGT Last administered on 11/30/16 08:50; Admin Dose 100 MG; Start 11/25/16 at 09:00 Piperacillin Sod/ Tazobactam Sod (Zosyn 3.375gm/ 100 ml (Pmx)) 100 ml @ 100 mls /hr Q6 IVPB Last administered on 11/30/16 05:41; Admin Dose 100 MLS/HR; Start 11/24/16 at 12:00 Atorvastatin Calcium (Lipitor) 10 mg HS NGT Last administered on 11/29/16 20: 25; Admin Dose 10 MG; Start 11/24/16 at 21:00 Mupirocin (Bactroban) 1 applic BID TOP Last administered on 11/30/16 09:00; Admin Dose 1 APPLIC; Start 11/27/16 at 09:30 Insulin Glargine (Lantus) 20 unit DAILY@20 SC Last administered on 11/29/16 20 :31; Admin Dose 20 UNIT; Start 11/27/16 at 20:00 Propranolol HCl 10 mg 10 mg TID PO Last administered on 11/29/16 20:24; Admin Dose 10 MG; Start 11/27/16 at 21:00 Linezolid (Zyvox 600mg/D5W (Pmx)) 300 ml @ 300 mls/hr Q12 IVPB Last administered on 11/30/16 08:50; Admin Dose 300 MLS/HR; Start 11/28/16 at 11:00 Thiamine HCl (Vitamin B1) 100 mg DAILY IV Last administered on 11/30/16 08:50 ; Admin Dose 100 MG; Start 11/29/16 at 10:00 Folic Acid (Folic Acid) 1 mg DAILY NGT Last administered on 11/30/16 08:50; Admin Dose 1 MG; Start 11/29/16 at 10:00 Multivitamins (Multivitamin) 30 ml DAILY NGT Last administered on 11/30/16 08: 51; Admin Dose 30 ML; Start 11/29/16 at 10:30 ELEONORA LEWIS Nov 30, 2016 10:55
--- NOTE | 2016-11-30 11:39 | CONS ---
Date/Time of Note Date/Time of Note DATE: 11/30/16 TIME: 11:37 Assessment/Plan Assessment/Plan Additional Assessment/Plan 1. Acute kidney injury on possible previous chronic kidney disease with last creatinine known about 1.48 secondary to acute tubular necrosis from ischemic acute tubular necrosis from cardiogenic shock. 2. Acute respiratory failure from cardiogenic shock, currently intubated on ventilator- failed weaning trial due to pulmonary congestion 3. Acute non-ST elevation myocardial infarction, s/p v tach arrest s/p pci of RCA, possible staged procedure to LCx required s/p IABP, now off 4. History of possible chronic kidney disease secondary to diabetic nephropathy , unknown stage. 5. History of type 2 diabetes mellitus. 6. History of hypertension. Plan: remains intubated, ventilator care as per pulmonary Cr 2.04 will give lasix 40mg IV x 1 dose today on Free water flush CT head with chronic multiple infarcts and ? hepatic, toxic encephalopathy on Brilinat Post cath will continue to follow up on patient DNR code status no indication for renal replacement therapy at this time Consultation Date/Type/Reason Admit Date/Time Nov 19, 2016 at 16:09 Initial Consult Date Nov Type of Consultation: NEPHROLOGY Referring Provider: PIO VEGA 24 HR Interval Summary Free Text/Dictation pt remains intubated, congested Exam/Review of Systems Vital Signs Vitals Vital Signs Date Time Temp Pulse Resp B/P Pulse Ox O2 Delivery O2 Flow Rate FiO2 11/30/16 09:30 54 20 115/76 100 11/30/16 09:00 Mechanical Ventilator 11/30/16 08:00 97.9 11/30/16 08:00 30 Intake and Output 11/29/16 11/29/16 11/30/16 15:00 23:00 07:00 Intake Total 940.2 ml 942.3 ml 571.2 ml Output Total 365 ml 440 ml 335 ml Balance 575.2 ml 502.3 ml 236.2 ml Exam GENERAL: no acute distress , remains intubated NECK: supple + Et tube LUNGS: Bilateral crackles + HEART: S1, S2, tachycardia, no murmur. ABDOMEN: Soft, morbidly obese. EXTREMITIES: 1 to 2+ pitting edema. No clubbing, cyanosis. NEUROLOGICAL: Uncooperative for exam PSYCHIATRIC: Not able to assess at this point. Results Result Diagram: 11/30/16 0440 11/30/16 0440 Results 24 hrs Laboratory Tests Test 11/29/16 13:42 11/29/16 17:34 11/29/16 20:23 11/30/16 01:23 Bedside Glucose 151 141 134 157 Test 11/30/16 04:40 11/30/16 05:31 11/30/16 08:49 White Blood Count 12.2 H Red Blood Count 3.43 L Hemoglobin 10.2 L Hematocrit 33.1 L Mean Corpuscular Volume 96.5 Mean Corpuscular Hemoglobin 29.7 Mean Corpuscular Hemoglobin Concent 30.8 L Red Cell Distribution Width 15.0 H Platelet Count 196 Mean Platelet Volume 12.5 H Neutrophils % 65.0 Lymphocytes % 21.4 Monocytes % 5.3 Eosinophils % 6.4 Basophils % 0.4 Nucleated Red Blood Cells % 0.0 Neutrophils # 7.9 H Lymphocytes # 2.6 Monocytes # 0.6 Eosinophils # 0.8 H Basophils # 0.1 Nucleated Red Blood Cells # 0.0 Sodium Level 141 Potassium Level 3.6 Chloride Level 109 Carbon Dioxide Level 27 Anion Gap 9 Blood Urea Nitrogen 48 H Creatinine 1.97 H Glucose Level 121 Calcium Level 8.8 Phosphorus Level 3.6 Magnesium Level 2.8 H Total Bilirubin 0.1 L Direct Bilirubin 0.00 Indirect Bilirubin 0.1 Aspartate Amino Transf (AST/SGOT) 41 Alanine Aminotransferase (ALT/SGPT) 125 H Alkaline Phosphatase 103 Creatine Kinase < 20 L Creatine Kinase Index Creatinine Kinase MB (Mass) 1.17 Troponin I 0.902 *H Total Protein 5.5 L Albumin 2.7 L Globulin 2.80 Albumin/Globulin Ratio 0.96 Bedside Glucose 121 114 Medications Medications Current Medications Aspirin (Halfprin) 81 mg DAILY PO Last administered on 11/30/16 08:50; Admin Dose 81 MG; Start 11/20/16 at 09:00 Ticagrelor 90 mg 90 mg BID PO Last administered on 11/30/16 08:58; Admin Dose 90 MG; Start 11/19/16 at 21:00 Propofol 100 ml @ 3.818 mls/ hr Q12H IV Last administered on 11/30/16 06:24; Admin Dose 7.636 MLS/HR; Start 11/19/16 at 16:30 Fentanyl (Sublimaze) 100 ml @ 2.5 mls/hr TITRATE IV Last administered on 00:25; Admin Dose 5 MLS/HR; Start 11/19/16 at 17:00 Ondansetron HCl (Zofran Inj) 4 mg Q6H PRN IV NAUSEA AND/OR VOMITING; Start 04/27 at 17:00 Acetaminophen (Tylenol Liquid) 650 mg Q6H PRN PO PAIN LEVEL 1-3 OR FEVER; Start 11/19/16 at 17:00 Acetaminophen (Tylenol Supp) 650 mg Q4H PRN NC PAIN LEVEL 1-3 OR FEVER; Start 11/19/16 at 17:00 Docusate Sodium (Colace) 100 mg Q12H PRN PO CONSTIPATION; Start 11/19/16 at 17: 00 Magnesium Hydroxide (Milk Of Mag) 30 ml DAILY PRN PO CONSTIPATION Last administered on 11/29/16 09:23; Admin Dose 30 ML; Start 11/19/16 at 17:00 Bisacodyl (Dulcolax Supp) 10 mg DAILY PRN NC CONSTIPATION Last administered on 11/29/16 09:23; Admin Dose 10 MG; Start 11/19/16 at 17:00 Famotidine (Pepcid Iv) 20 mg DAILY IV Last administered on 11/30/16 08:50; Admin Dose 20 MG; Start 11/19/16 at 17:00 Insulin Aspart (Novolog Insulin Pen) NOVOLOG *MODERATE* ALGORI... Q4 SC Last administered on 11/30/16 01:26; Admin Dose 2 UNIT; Start 11/19/16 at 17:30 Miscellaneous Information 1 ea NOTE XX ; Start 11/19/16 at 17:30 Glucose (Glutose) 15 gm Q15M PRN PO DECREASED GLUCOSE; Start 11/19/16 at 17:30 Glucose (Glutose) 22.5 gm Q15M PRN PO DECREASED GLUCOSE; Start 11/19/16 at 17: 30 Dextrose (D50w Syringe) 25 ml Q15M PRN IV DECREASED GLUCOSE; Start 11/19/16 at 17:30 Dextrose (D50w Syringe) 50 ml Q15M PRN IV DECREASED GLUCOSE; Start 11/19/16 at 17:30 Glucagon (Glucagen) 1 mg Q15M PRN IM DECREASED GLUCOSE; Start 11/19/16 at 17:30 Glucose 15 gm 15 gm Q15M PRN BUCCAL DECREASED GLUCOSE; Start 11/19/16 at 17:30 Norepinephrine/ Dextrose (Levophed/D5W) 500 ml @ 1.875 mls/ hr TITRATE IV Last administered on 11/22/16 01:11; Admin Dose 7.5 MLS/HR; Start 11/20/16 at 19:30 Amiodarone HCl (Cordarone) 200 mg DAILY GTB Last administered on 11/30/16 08: 51; Admin Dose 200 MG; Start 11/23/16 at 09:00 Nystatin (Nystatin Susp) 5 ml QID PO Last administered on 11/30/16 08:51; Admin Dose 5 ML; Start 11/24/16 at 10:30 Fluconazole 100 mg 100 mg DAILY NGT Last administered on 11/30/16 08:50; Admin Dose 100 MG; Start 11/25/16 at 09:00 Piperacillin Sod/ Tazobactam Sod (Zosyn 3.375gm/ 100 ml (Pmx)) 100 ml @ 100 mls /hr Q6 IVPB Last administered on 11/30/16 05:41; Admin Dose 100 MLS/HR; Start 11/24/16 at 12:00 Atorvastatin Calcium (Lipitor) 10 mg HS NGT Last administered on 11/29/16 20: 25; Admin Dose 10 MG; Start 11/24/16 at 21:00 Mupirocin (Bactroban) 1 applic BID TOP Last administered on 11/30/16 09:00; Admin Dose 1 APPLIC; Start 11/27/16 at 09:30 Insulin Glargine (Lantus) 20 unit DAILY@20 SC Last administered on 11/29/16 20 :31; Admin Dose 20 UNIT; Start 11/27/16 at 20:00 Propranolol HCl 10 mg 10 mg TID PO Last administered on 11/29/16 20:24; Admin Dose 10 MG; Start 11/27/16 at 21:00 Linezolid (Zyvox 600mg/D5W (Pmx)) 300 ml @ 300 mls/hr Q12 IVPB Last administered on 11/30/16 08:50; Admin Dose 300 MLS/HR; Start 11/28/16 at 11:00 Thiamine HCl (Vitamin B1) 100 mg DAILY IV Last administered on 11/30/16 08:50 ; Admin Dose 100 MG; Start 11/29/16 at 10:00 Folic Acid (Folic Acid) 1 mg DAILY NGT Last administered on 11/30/16 08:50; Admin Dose 1 MG; Start 11/29/16 at 10:00 Multivitamins (Multivitamin) 30 ml DAILY NGT Last administered on 11/30/16 08: 51; Admin Dose 30 ML; Start 11/29/16 at 10:30 FÁTIMA PERES MD Nov 30, 2016 11:39
[2016-11-30] MEDS ORDERED: FUROSEMIDE 40 MG INJ IV ONE (12:00)
[2016-11-30] MEDS: ATORVASTATIN 10 MG TAB NGT SCH (20:06)
[2016-11-30] MEDS: INSULIN GLARGINE [LANtus] 3 ML PEN SC SCH (20:08)
--- NOTE | 2016-11-30 22:41 | RADRPT ---
PROCEDURE: MRI Brain without contrast. CLINICAL INDICATION: Headache and evaluate for mass TECHNIQUE: An MRI of the brain was performed on a high resolution hi-definition 3.0 [place] MRI scan ner utilizing the following sequences: Sagittal and axial T1 weighted, axial T2 weighted, coronal GR E, axial diffusion weighted with ADC mapping, coronal GRE, and axial FLAIR. COMPARISON: None FINDINGS: The scalp and calvarium are normal. The visualized paranasal sinuses are remarkable for chronic righ t maxillary and left septated sphenoid sinus disease as well as chronic bilateral ethmoid sinus dise ase. This see degree of involvement of the frontal sinuses are noted. The bilateral mastoid air ce lls demonstrate mild fluid present. The bilateral orbits are normal. No extra-axial fluid collections are present. The ventricles and sulci are age appropriate. This co mpatible with mild volume loss. On the FLAIR and T2-weighted sequences, wedge-shaped areas of hyper intensity are noted in the right frontal lobe, left frontal cortical and subcortical white matter, b ilateral parietal lobes, left frontal mitchell radiata, and right occipital lobe compatible with chron ic infarcts. In addition, punctate foci of hyperintensity are noted in the bilateral subcortical wh ite matter, bilateral centrum semiovale, and bilateral periventricular white matter, and brenda compat ible with mild chronic microvascular ischemic disease. No evidence of intracranial hemorrhage, mass effect or midline shift is present. No diffusion weighted abnormalities are seen to suggest the pre sence of acute ischemia or recent infarct. No hypointense signal abnormalities are seen on the GRE images to suggest the presence of blood degradation products. Normal flow voids are visible in the proximal intracranial arteries and dural sinuses, indicating patency. IMPRESSION: 1. No evidence for acute infarcts, hemorrhage, or acute intracranial pathology. 2. Multi vascular distribution chronic infarcts in the right frontal lobe, bilateral parietal lobes , and right occipital lobe. 3. Chronic small vessel infarcts in the left frontal cortex and subcortical white matter and the le ft frontal mitchell radiata 4. Mild to moderate chronic microvascular ischemic disease as described above. 5. Mild diffuse volume loss. 6. Chronic sinusitis predominately involving the right maxillary sinus, the left septated sphenoid sinus with lesser degrees of involvement in the bilateral frontal and ethmoid sinuses. 7. Minimal fluid in the bilateral mastoid air cells RPTAT: HDC .Jeana Rasheed MD, MD Date Time Electronically viewed and signed by .Jeana Rasheed MD, MD on 11/30/2016 22:41 .C/
[2016-12-01] VITALS (31 sets, daily range): BP systolic 97–142; BP diastolic 59–86; PULSE 48–96; RESP 15–32
[2016-12-01] MEDS: INSULIN ASPART [NOVOLOG] 3 ML PEN SC SCH ×6 (01:00→21:00)
[2016-12-01] MEDS: PIPER-TAZO 3.375 GM IV (PMX) 100 ML IVPB SCH ×5 (02:00→23:46)
[2016-12-01 04:46] LABS: ADD SCAN DIFF NO
[2016-12-01 04:50] LABS: BASOPHILS % 0.3 % (0.0-2.0); EOSINOPHILS # 0.8 10^3/ul (0.0-0.5); EOSINOPHILS % 6.1 % (0.0-7.0); HEMATOCRIT 34.1 % (42.0-52.0); HEMOGLOBIN 10.4 g/dl (14.0-18.0); LYMPHOCYTES # 2.5 10^3/ul (0.8-2.9); LYMPHOCYTES % 19.3 % (15.0-51.0); MEAN CORPUSCULAR HEMOGLOBIN 29.4 pg (29.0-33.0); MEAN CORPUSCULAR HGB CONC 30.5 g/dl (32.0-37.0); MEAN CORPUSCULAR VOLUME 96.3 fl (82.0-101.0); MEAN PLATELET VOLUME 12.1 fl (7.4-10.4); MONOCYTE # 0.7 10^3/ul (0.3-0.9); MONOCYTES % 5.3 % (0.0-11.0); NEUTROPHIL # 8.7 10^3/ul (1.6-7.5); NEUTROPHILS % 68.1 % (39.0-77.0); PLATELET COUNT 228 10^3/UL (140-415); RED BLOOD COUNT 3.54 10^6/ul (4.70-6.10); WHITE BLOOD COUNT 12.7 10^3/ul (4.8-10.8)
[2016-12-01] MEDS: PROPOFOL 100 ML IV SCH ×4 (05:08→23:38)
[2016-12-01 05:15] LABS: ALBUMIN 2.9 g/dl (3.3-4.9); BILIRUBIN,INDIRECT 0.2 mg/dl (0-1.1); BILIRUBIN,TOTAL 0.2 mg/dl (0.2-1.3); CALCIUM 8.9 mg/dl (8.4-10.2); CREATININE 1.93 mg/dl (0.61-1.24); MAGNESIUM 2.6 mg/dl (1.7-2.5); POTASSIUM 3.4 mmol/L (3.5-5.1); TOTAL PROTEIN 5.8 g/dl (6.1-8.1)
[2016-12-01 05:19] LABS: CREATINE KINASE < 20 IU/L (23-200)
[2016-12-01 05:33] LABS: CK-MB 1.09 ng/ml (0.0-2.4); TROPONIN-I 0.669 ng/ml (0.00-0.12)
[2016-12-01] MEDS: NYSTATIN SUSP 5 ML CUP PO SCH (08:37)
[2016-12-01] MEDS: MULTIVITAMINS 30 ML CUP NGT SCH (08:37)
[2016-12-01] MEDS: FLUCONAZOLE 100 MG TAB NGT SCH (08:37)
[2016-12-01] MEDS: ASPIRIN (EC) 81 MG TAB PO SCH (08:37)
[2016-12-01] MEDS: AMIODARONE 200 MG TAB GTB SCH (08:37)
[2016-12-01] MEDS: THIAMINE 200 MG INJ IV SCH (08:39)
[2016-12-01] MEDS: TICAGRELOR 90 MG TABLET PO SCH ×2 (08:39→21:21)
[2016-12-01] MEDS: LINEZOLID 600 MG/D5W (PMX) 300 ML IVPB SCH ×2 (08:39→21:20)
[2016-12-01] MEDS: PROPRANOLOL 10 MG TAB PO SCH ×3 (08:40→21:00)
[2016-12-01] MEDS: FOLIC ACID 1 MG TAB NGT SCH (08:42)
[2016-12-01] MEDS: MUPIROCIN 2% 22 GM OINT TOP SCH ×2 (08:42→21:14)
[2016-12-01] MEDS: FAMOTIDINE 20 MG INJ IV SCH (08:42)
--- NOTE | 2016-12-01 09:20 | CONS ---
Date/Time of Note Date/Time of Note DATE: 12/01/16 TIME: 09:15 Assessment/Plan Assessment/Plan Additional Assessment/Plan Ventilator setting; AC of 20, tidal volume 500, PEEP of 5, 30% FiO2. Patient is currently back on fentanyl drip at 50 mics per hour, propofol at 10 mics per kilogram per minute. Assessment recommendations; 1. Patient admitted with cardiac arrest status post CPR 2, status post coronary angiography with stenting of circumflex lesion. 2. Likely ensuing hypoxic encephalopathy. 3. Improving serum creatinine. 4. Pneumonia. 5. History of alcoholism. Continue current treatment. Patient's family has signed a DNR form and they want him to be terminally extubated. Patient however may fair well with tracheostomy. And I would strongly recommend that owing to patient's relatively young age. Obtain follow-up chest x-ray. 35 minutes of critical care time was spent evaluating the patient. Consultation Date/Type/Reason Admit Date/Time Nov 19, 2016 at 16:09 Type of Consultation: Pulmonary/critical care Referring Provider: PIO VEGA 24 HR Interval Summary Free Text/Dictation Patient condition remains critical. The patient has failed multiple weaning attempts from ventilator going to severe agitation once off sedation. Patient was again tried off sedation this morning was kept on CPAP mode for 30 minutes but then became extremely agitated and tachypneic and had to be re-sedated and reverted back to assist control mode. General examination; middle-aged male, obese, currently in no distress. Sedated. Orally intubated. Exam/Review of Systems Vital Signs Vitals Vital Signs Date Time Temp Pulse Resp B/P Pulse Ox O2 Delivery O2 Flow Rate FiO2 12/01/16 08:00 30 12/01/16 06:04 53 22 100 12/01/16 06:00 108/64 12/01/16 04:00 97.7 11/30/16 20:00 Mechanical Ventilator Intake and Output 11/30/16 11/30/16 12/01/16 15:00 23:00 07:00 Intake Total 971.082 ml 466.344 ml 326.4 ml Output Total 960 ml 780 ml 520 ml Balance 11.082 ml -313.656 ml -193.6 ml Exam HEENT exam; supple neck, positive JVD. No lymphadenopathy. Midline trachea. No thyromegaly. Patient is edentulous. Orally intubated. Pupils are small bilaterally. Chest examination; diminished but clear vessel. S1-S2 audible, no murmurs. Regular rhythm. Abdomen examination; soft, protuberant. No organomegaly. Bowel sounds audible. Extremity examination; no peripheral edema. Pulses 1+ bilaterally. SEISMIC OBSERVER examination; patient is sedated again. Was awake earlier and was following simple commands on CPAP mode. Results Result Diagram: 12/01/167 12/01/16 0407 Results 24 hrs Laboratory Tests Test 11/30/16 13:23 11/30/16 16:25 11/30/16 20:01 12/01/16 00:45 Bedside Glucose 152 156 126 88 Test 12/01/16 04:07 12/01/16 05:05 12/01/16 08:38 White Blood Count 12.7 H Red Blood Count 3.54 L Hemoglobin 10.4 L Hematocrit 34.1 L Mean Corpuscular Volume 96.3 Mean Corpuscular Hemoglobin 29.4 Mean Corpuscular Hemoglobin Concent 30.5 L Red Cell Distribution Width 15.0 H Platelet Count 228 Mean Platelet Volume 12.1 H Neutrophils % 68.1 Lymphocytes % 19.3 Monocytes % 5.3 Eosinophils % 6.1 Basophils % 0.3 Nucleated Red Blood Cells % 0.0 Neutrophils # 8.7 H Lymphocytes # 2.5 Monocytes # 0.7 Eosinophils # 0.8 H Basophils # 0.0 Nucleated Red Blood Cells # 0.0 Sodium Level 143 Potassium Level 3.4 L Chloride Level 108 Carbon Dioxide Level 28 Anion Gap 10 Blood Urea Nitrogen 44 H Creatinine 1.93 H Glucose Level 101 Calcium Level 8.9 Magnesium Level 2.6 H Total Bilirubin 0.2 Direct Bilirubin 0.00 Indirect Bilirubin 0.2 Aspartate Amino Transf (AST/SGOT) 33 Alanine Aminotransferase (ALT/SGPT) 111 H Alkaline Phosphatase 103 Creatine Kinase < 20 L Creatine Kinase Index Creatinine Kinase MB (Mass) 1.09 Troponin I 0.669 *H B-Type Natriuretic Peptide 5270 H Total Protein 5.8 L Albumin 2.9 L Globulin 2.90 Albumin/Globulin Ratio 1.00 Bedside Glucose 72 78 Medications Medications Current Medications Aspirin (Halfprin) 81 mg DAILY PO Last administered on 12/01/16t 08:37; Admin Dose 81 MG; Start 11/20/16 at 09:00 Ticagrelor 90 mg 90 mg BID PO Last administered on 12/01/16 08:39; Admin Dose 90 MG; Start 11/19/16 at 21:00 Propofol 100 ml @ 3.818 mls/ hr Q12H IV Last administered on 12/01/16 05:08; Admin Dose 15.272 MLS/HR; Start 11/19/16 at 16:30 Fentanyl (Sublimaze) 100 ml @ 2.5 mls/hr TITRATE IV Last administered on 17:44; Admin Dose 5 MLS/HR; Start 11/19/16 at 17:00 Ondansetron HCl (Zofran Inj) 4 mg Q6H PRN IV NAUSEA AND/OR VOMITING; Start 04/27 at 17:00 Acetaminophen (Tylenol Liquid) 650 mg Q6H PRN PO PAIN LEVEL 1-3 OR FEVER; Start 11/19/16 at 17:00 Acetaminophen (Tylenol Supp) 650 mg Q4H PRN MA PAIN LEVEL 1-3 OR FEVER; Start 11/19/16 at 17:00 Docusate Sodium (Colace) 100 mg Q12H PRN PO CONSTIPATION; Start 11/19/16 at 17: 00 Magnesium Hydroxide (Milk Of Mag) 30 ml DAILY PRN PO CONSTIPATION Last administered on 11/29/16 09:23; Admin Dose 30 ML; Start 11/19/16 at 17:00 Bisacodyl (Dulcolax Supp) 10 mg DAILY PRN MA CONSTIPATION Last administered on 11/29/16 09:23; Admin Dose 10 MG; Start 11/19/16 at 17:00 Famotidine (Pepcid Iv) 20 mg DAILY IV Last administered on 12/01/16 08:42; Admin Dose 20 MG; Start 11/19/16 at 17:00 Insulin Aspart (Novolog Insulin Pen) NOVOLOG *MODERATE* ALGORI... Q4 SC Last administered on 11/30/16 16:28; Admin Dose 2 UNIT; Start 11/19/16 at 17:30 Miscellaneous Information 1 ea NOTE XX ; Start 11/19/16 at 17:30 Glucose (Glutose) 15 gm Q15M PRN PO DECREASED GLUCOSE; Start 11/19/16 at 17:30 Glucose (Glutose) 22.5 gm Q15M PRN PO DECREASED GLUCOSE; Start 11/19/16 at 17: 30 Dextrose (D50w Syringe) 25 ml Q15M PRN IV DECREASED GLUCOSE; Start 11/19/16 at 17:30 Dextrose (D50w Syringe) 50 ml Q15M PRN IV DECREASED GLUCOSE; Start 11/19/16 at 17:30 Glucagon (Glucagen) 1 mg Q15M PRN IM DECREASED GLUCOSE; Start 11/19/16 at 17:30 Glucose 15 gm 15 gm Q15M PRN BUCCAL DECREASED GLUCOSE; Start 11/19/16 at 17:30 Norepinephrine/ Dextrose (Levophed/D5W) 500 ml @ 1.875 mls/ hr TITRATE IV Last administered on 11/22/16 01:11; Admin Dose 7.5 MLS/HR; Start 11/20/16 at 19:30 Amiodarone HCl (Cordarone) 200 mg DAILY GTB Last administered on 12/01/16 08: 37; Admin Dose 200 MG; Start 11/23/16 at 09:00 Nystatin (Nystatin Susp) 5 ml QID PO Last administered on 12/01/16 08:37; Admin Dose 5 ML; Start 11/24/16 at 10:30 Fluconazole 100 mg 100 mg DAILY NGT Last administered on 12/01/16 08:37; Admin Dose 100 MG; Start 11/25/16 at 09:00 Piperacillin Sod/ Tazobactam Sod (Zosyn 3.375gm/ 100 ml (Pmx)) 100 ml @ 100 mls /hr Q6 IVPB Last administered on 12/01/16 05:06; Admin Dose 100 MLS/HR; Start 11/24/16 at 12:00 Atorvastatin Calcium (Lipitor) 10 mg HS NGT Last administered on 11/30/16 20: 06; Admin Dose 10 MG; Start 11/24/16 at 21:00 Mupirocin (Bactroban) 1 applic BID TOP Last administered on 12/01/16 08:42; Admin Dose 1 APPLIC; Start 11/27/16 at 09:30 Insulin Glargine (Lantus) 20 unit DAILY@20 SC Last administered on 11/30/16 20 :08; Admin Dose 20 UNIT; Start 11/27/16 at 20:00 Propranolol HCl 10 mg 10 mg TID PO Last administered on 11/29/16 20:24; Admin Dose 10 MG; Start 11/27/16 at 21:00 Linezolid (Zyvox 600mg/D5W (Pmx)) 300 ml @ 300 mls/hr Q12 IVPB Last administered on 12/01/16 08:39; Admin Dose 300 MLS/HR; Start 11/28/16 at 11:00 Thiamine HCl (Vitamin B1) 100 mg DAILY IV Last administered on 11/30/16 08:50 ; Admin Dose 100 MG; Start 11/29/16 at 10:00 Folic Acid (Folic Acid) 1 mg DAILY NGT Last administered on 12/01/16 08:42; Admin Dose 1 MG; Start 11/29/16 at 10:00 Multivitamins (Multivitamin) 30 ml DAILY NGT Last administered on 12/01/16 08: 37; Admin Dose 30 ML; Start 11/29/16 at 10:30 ELEONORA LEWIS 23, 2017 09:20
[2016-12-01] MEDS ORDERED: POTASSIUM CHLORIDE 20 MEQ POWDER FOR ORAL SOLN NGT ONE (09:30)
--- NOTE | 2016-12-01 09:35 | PN ---
Date/Time of Note Date/Time of Note DATE: 12/01/16 TIME: 09:22 Assessment/Plan VTE Prophylaxis VTE Prophylaxis Intervention: SCD's Lines/Catheters IV Catheter Type (from Nrsg): Central Line Central line still needed: Yes (for IV access ) Urinary Cath still in place: Yes Reason Cath still needed: other (indicate) (monitor UOP and intubated ) Assessment/Plan Assessment/Plan 56-year-old male with: 1. ST elevation myocardial infarction with a hemodynamic instability, status post ventricular tachycardia, cardioverted status post angiogram with PCI to the circumflex. On Fentanyl and Propofol for sedation Hemodynamically stable but still with encephalopathy when on sedation vacation, CPAP trial today. CT head showing chronic findings only confirmed on MRI last night. Dr. Simeon following, on Brilinta and ASA. On po Amio. Pulmonary critical care following 2. Acute respiratory failure secondary to cardiogenic shock and ST elevation myocardial infarction. Also with history of chronic obstructive pulmonary disease Intubated and sedated on Fentanyl and Propofol, on CPAP trial, seems calmer but ? following basic commands. CXR with CHF exacerbation, OFF IVF now and prn Lasix doses. On Zosyn with Klebsiella and MSSA on sputum cx, and also on Zyvox. WBC trending down. Pulmonary for Vent management. On tube feedings 3. Acute kidney injury on probable chronic kidney disease, likely secondary to acute tubular necrosis in this situation. Monitor Renal function still improving, off IVF and diuretics prn . Repleting electrolytes prn, UOP still OK Renal US mostly unremarkable Nephrology, Dr Welch following. 4. Encephalopathy with reported hx of drug use (cocaine, bath salts..) and heavy alcohol use. sedation vacation today, CT head results noted with findings of chronic infarcts (per Brother, patient had hx of multiple CVAs), ? embolic in nature, given PAF, will need anticoagulation, currently on dual antiplatelets already .. will discuss with Cardiology Ammonia wnl. MRI confirming multiple chronic infarcts, no masses or signs of MS Continue thiamine IV, Folic Acid and MVI 5. Acute ischemic changes b/l toes, now seems better perfused but likely embolic events with angio. Pulses present 6. Shock Liver, with elevated LFTs and coagulopathy currently. Resolving. Avoiding hepatotoxic agents. 7. Diabetes mellitus. His blood sugars are fairly stable. A1c 7.1 Continue sliding scale insulin and Lantus to 20 units, continue SSI while on TF 8. Thrush: Continue Diflucan 9. Obstructive sleep apnea on CPAP at night as outpatient. 10. Tobacco use. Hopefully the patient will quit after this. Nicotine patch today. Prophylaxis. Pepcid for GI ppx and SCDs. DISPOSITION: Guarded prognosis, CPAP trial today. Brother Jv was tracked down, he lives in [facility] and confirmed patient has been chronically ill and also active drug abuser including alcoholic, bath salts, ? speed (also hx of dealing cocaine, bath salts?) . Discussed condition and current prognosis with Brother Jv, and per brother patient to be DNR Subjective 24 Hr Interval Summary Free Text/Dictation Patient on sedation vacation and CPAP trial Still with some degree of encephalopathy, MRI brain with chronic infarcts Attempting to extubate Otherwise hemodynamically stable Exam/Review of Systems Vital Signs Vitals Vital Signs Date Time Temp Pulse Resp B/P Pulse Ox O2 Delivery O2 Flow Rate FiO2 12/01/16 08:00 30 12/01/16 06:04 53 22 100 12/01/16 06:00 108/64 12/01/16 04:00 97.7 11/30/16 20:00 Mechanical Ventilator Intake and Output 11/30/16 11/30/16 12/01/16 15:00 23:00 07:00 Intake Total 971.082 ml 466.344 ml 326.4 ml Output Total 960 ml 780 ml 520 ml Balance 11.082 ml -313.656 ml -193.6 ml Exam Constitutional: alert, other (unclear if following commands but calmer ) Respiratory: diminished breath sounds (better), other (on CPAP trial) Cardiovascular: regular rate and rhythm Gastrointestinal: non-tender, soft Extremities: normal pulses, other (some anasarca ) Neurological: DIET CLERK II-XII intact, other (off sedation and on CPAP trial ) Results Result Diagram: 12/01/16 0407 12/01/16 040 Results 24 hrs Laboratory Tests Test 11/30/16 13:23 11/30/16 16:25 11/30/16 20:01 12/01/16 00:45 Bedside Glucose 152 156 126 88 Test 12/01/16 04:07 12/01/16 05:05 12/01/16 08:38 White Blood Count 12.7 H Red Blood Count 3.54 L Hemoglobin 10.4 L Hematocrit 34.1 L Mean Corpuscular Volume 96.3 Mean Corpuscular Hemoglobin 29.4 Mean Corpuscular Hemoglobin Concent 30.5 L Red Cell Distribution Width 15.0 H Platelet Count 228 Mean Platelet Volume 12.1 H Neutrophils % 68.1 Lymphocytes % 19.3 Monocytes % 5.3 Eosinophils % 6.1 Basophils % 0.3 Nucleated Red Blood Cells % 0.0 Neutrophils # 8.7 H Lymphocytes # 2.5 Monocytes # 0.7 Eosinophils # 0.8 H Basophils # 0.0 Nucleated Red Blood Cells # 0.0 Sodium Level 143 Potassium Level 3.4 L Chloride Level 108 Carbon Dioxide Level 28 Anion Gap 10 Blood Urea Nitrogen 44 H Creatinine 1.93 H Glucose Level 101 Calcium Level 8.9 Magnesium Level 2.6 H Total Bilirubin 0.2 Direct Bilirubin 0.00 Indirect Bilirubin 0.2 Aspartate Amino Transf (AST/SGOT) 33 Alanine Aminotransferase (ALT/SGPT) 111 H Alkaline Phosphatase 103 Creatine Kinase < 20 L Creatine Kinase Index Creatinine Kinase MB (Mass) 1.09 Troponin I 0.669 *H B-Type Natriuretic Peptide 5270 H Total Protein 5.8 L Albumin 2.9 L Globulin 2.90 Albumin/Globulin Ratio 1.00 Bedside Glucose 72 78 Medications Medications Current Medications Aspirin (Halfprin) 81 mg DAILY PO Last administered on 12/01/16 08:37; Admin Dose 81 MG; Start 11/20/16 at 09:00 Ticagrelor 90 mg 90 mg BID PO Last administered on 12/01/16 08:39; Admin Dose 90 MG; Start 11/19/16 at 21:00 Propofol 100 ml @ 3.818 mls/ hr Q12H IV Last administered on 12/01/16 05:08; Admin Dose 15.272 MLS/HR; Start 11/19/16 at 16:30 Fentanyl (Sublimaze) 100 ml @ 2.5 mls/hr TITRATE IV Last administered on 17:44; Admin Dose 5 MLS/HR; Start 11/19/16 at 17:00 Ondansetron HCl (Zofran Inj) 4 mg Q6H PRN IV NAUSEA AND/OR VOMITING; Start 04/27 at 17:00 Acetaminophen (Tylenol Liquid) 650 mg Q6H PRN PO PAIN LEVEL 1-3 OR FEVER; Start 11/19/16 at 17:00 Acetaminophen (Tylenol Supp) 650 mg Q4H PRN CA PAIN LEVEL 1-3 OR FEVER; Start 11/19/16 at 17:00 Docusate Sodium (Colace) 100 mg Q12H PRN PO CONSTIPATION; Start 11/19/16 at 17: 00 Magnesium Hydroxide (Milk Of Mag) 30 ml DAILY PRN PO CONSTIPATION Last administered on 11/29/16 09:23; Admin Dose 30 ML; Start 11/19/16 at 17:00 Bisacodyl (Dulcolax Supp) 10 mg DAILY PRN CA CONSTIPATION Last administered on 11/29/16 09:23; Admin Dose 10 MG; Start 11/19/16 at 17:00 Famotidine (Pepcid Iv) 20 mg DAILY IV Last administered on 12/01/16 08:42; Admin Dose 20 MG; Start 11/19/16 at 17:00 Insulin Aspart (Novolog Insulin Pen) NOVOLOG *MODERATE* ALGORI... Q4 SC Last administered on 11/30/16 16:28; Admin Dose 2 UNIT; Start 11/19/16 at 17:30 Miscellaneous Information 1 ea NOTE XX ; Start 11/19/16 at 17:30 Glucose (Glutose) 15 gm Q15M PRN PO DECREASED GLUCOSE; Start 11/19/16 at 17:30 Glucose (Glutose) 22.5 gm Q15M PRN PO DECREASED GLUCOSE; Start 11/19/16 at 17: 30 Dextrose (D50w Syringe) 25 ml Q15M PRN IV DECREASED GLUCOSE; Start 11/19/16 at 17:30 Dextrose (D50w Syringe) 50 ml Q15M PRN IV DECREASED GLUCOSE; Start 11/19/16 at 17:30 Glucagon (Glucagen) 1 mg Q15M PRN IM DECREASED GLUCOSE; Start 11/19/16 at 17:30 Glucose 15 gm 15 gm Q15M PRN BUCCAL DECREASED GLUCOSE; Start 11/19/16 at 17:30 Norepinephrine/ Dextrose (Levophed/D5W) 500 ml @ 1.875 mls/ hr TITRATE IV Last administered on 11/22/16 01:11; Admin Dose 7.5 MLS/HR; Start 11/20/16 at 19:30 Amiodarone HCl (Cordarone) 200 mg DAILY GTB Last administered on 12/01/16 08: 37; Admin Dose 200 MG; Start 11/23/16 at 09:00 Nystatin (Nystatin Susp) 5 ml QID PO Last administered on 12/01/16 08:37; Admin Dose 5 ML; Start 11/24/16 at 10:30 Fluconazole 100 mg 100 mg DAILY NGT Last administered on 12/01/16 08:37; Admin Dose 100 MG; Start 11/25/16 at 09:00 Piperacillin Sod/ Tazobactam Sod (Zosyn 3.375gm/ 100 ml (Pmx)) 100 ml @ 100 mls /hr Q6 IVPB Last administered on 12/01/16 05:06; Admin Dose 100 MLS/HR; Start 11/24/16 at 12:00 Atorvastatin Calcium (Lipitor) 10 mg HS NGT Last administered on 11/30/16 20: 06; Admin Dose 10 MG; Start 11/24/16 at 21:00 Mupirocin (Bactroban) 1 applic BID TOP Last administered on 12/01/16 08:42; Admin Dose 1 APPLIC; Start 11/27/16 at 09:30 Insulin Glargine (Lantus) 20 unit DAILY@20 SC Last administered on 11/30/16 20 :08; Admin Dose 20 UNIT; Start 11/27/16 at 20:00 Propranolol HCl 10 mg 10 mg TID PO Last administered on 11/29/16 20:24; Admin Dose 10 MG; Start 11/27/16 at 21:00 Linezolid (Zyvox 600mg/D5W (Pmx)) 300 ml @ 300 mls/hr Q12 IVPB Last administered on 12/01/16 08:39; Admin Dose 300 MLS/HR; Start 11/28/16 at 11:00 Thiamine HCl (Vitamin B1) 100 mg DAILY IV Last administered on 11/30/16 08:50 ; Admin Dose 100 MG; Start 11/29/16 at 10:00 Folic Acid (Folic Acid) 1 mg DAILY NGT Last administered on 12/01/16 08:42; Admin Dose 1 MG; Start 11/29/16 at 10:00 Multivitamins (Multivitamin) 30 ml DAILY NGT Last administered on 6/23/17at 08: 37; Admin Dose 30 ML; Start 11/29/16 at 10:30 Procedures Procedures PROCEDURE: MRI Brain without contrast. CLINICAL INDICATION: Headache and evaluate for mass TECHNIQUE: An MRI of the brain was performed on a high resolution hi- definition 3.0 [place] MRI scanner utilizing the following sequences: Sagittal and axial T1 weighted, axial T2 weighted, coronal GRE, axial diffusion weighted with ADC mapping, coronal GRE, and axial FLAIR. COMPARISON: None FINDINGS: The scalp and calvarium are normal. The visualized paranasal sinuses are remarkable for chronic right maxillary and left septated sphenoid sinus disease as well as chronic bilateral ethmoid sinus disease. This see degree of involvement of the frontal sinuses are noted. The bilateral mastoid air cells demonstrate mild fluid present. The bilateral orbits are normal. No extra-axial fluid collections are present. The ventricles and sulci are age appropriate. This compatible with mild volume loss. On the FLAIR and T2- weighted sequences, wedge-shaped areas of hyperintensity are noted in the right frontal lobe, left frontal cortical and subcortical white matter, bilateral parietal lobes, left frontal mitchell radiata, and right occipital lobe compatible with chronic infarcts. In addition, punctate foci of hyperintensity are noted in the bilateral subcortical white matter, bilateral centrum semiovale , and bilateral periventricular white matter, and brenda compatible with mild chronic microvascular ischemic disease. No evidence of intracranial hemorrhage, mass effect or midline shift is present. No diffusion weighted abnormalities are seen to suggest the presence of acute ischemia or recent infarct. No hypointense signal abnormalities are seen on the GRE images to suggest the presence of blood degradation products. Normal flow voids are visible in the proximal intracranial arteries and dural sinuses, indicating patency. IMPRESSION: 1. No evidence for acute infarcts, hemorrhage, or acute intracranial pathology. 2. Multi vascular distribution chronic infarcts in the right frontal lobe, bilateral parietal lobes, and right occipital lobe. 3. Chronic small vessel infarcts in the left frontal cortex and subcortical white matter and the left frontal mitchell radiata 4. Mild to moderate chronic microvascular ischemic disease as described above. 5. Mild diffuse volume loss. 6. Chronic sinusitis predominately involving the right maxillary sinus, the left septated sphenoid sinus with lesser degrees of involvement in the bilateral frontal and ethmoid sinuses. 7. Minimal fluid in the bilateral mastoid air cells PIO VEGA Dec 01, 2016 09:34
--- NOTE | 2016-12-01 11:06 | RADRPT ---
PROCEDURE: Chest 1 views. CLINICAL INDICATION: This of breath, congestive heart failure. TECHNIQUE: AP views of the chest was obtained. COMPARISON: November 29, 2016 FINDINGS: The heart is large. Endotracheal and nasogastric tubes are stable and appear in grossly appropriate location. Central pulmonary vascular congestion and interstitial prominence in both lungs appears u nchanged. Retrocardiac opacity is stable. Patchy infiltrates in the right lower lobe and small rig ht pleural effusion have developed. Right-sided central line is stable. Osseous structures are int act. IMPRESSION: Cardiomegaly . Central pulmonary vascular congestion and interstitial prominence in both lungs. Stable retrocardiac opacity that may reflect left lower lobe atelectasis or infiltrate combined with small pleural effusion. Interval development of patchy infiltrates in the right lower lobe and small right pleural effusion. RPTAT: AA .William Beckwith MD, MD Date Time Electronically viewed and signed by .William Beckwith MD, MD on 12/01/2016 11:05 .P/
[2016-12-01] MEDS ORDERED: POTASSIUM CHLORIDE 20 MEQ POWDER FOR ORAL SOLN GTB STA (15:21)
[2016-12-01] MEDS ORDERED: FUROSEMIDE 40 MG INJ IV ONE (15:30)
--- NOTE | 2016-12-01 15:43 | PN ---
DATE: 12/01/2016 CARDIOLOGY FOLLOWUP/CRITICAL CARE NOTE: SUBJECTIVE: Discussed with the staff. Rhythm strip was reviewed. The patient remains in sinus rhy thm but has episodes of slow VT, lasting longer, about 30 seconds. Patient has failed extubation ag ain today. An attempt apparently to put in NG tube has caused the patient to go bradycardic, most l ikely consistent with pacemaker reaction. Discussed with the staff. The patient remains nonverbal. ____ HISTORY: The ____has been stable. MEDICATIONS: Reviewed. PHYSICAL EXAMINATION: VITAL SIGNS: Temperature 98.8, heart rate of 56, blood pressure 142/85, respiration rate of 23, sat urating 100%. HEENT: Normocephalic, atraumatic. Status post OG tube in place. Status post intubation. CARDIOVASCULAR: Bradycardic, systolic murmur. PULMONARY: With mild rhonchi. GASTROINTESTINAL: Soft, nontender. EXTREMITIES: Diffuse edema. NEUROLOGIC: Opens his eyes, does not answer my questions or follow commands. PSYCHIATRIC: At this point, appeared to be calm. LABORATORY: Sodium 143, potassium 3.4, BUN of 44, creatinine 1.93, glucose of 101. CK of less than 20. Troponin of 0.6. ProBNP 50 to 70. WBC of 12.7, hemoglobin 10.4, platelets 228. ASSESSMENT AND PLAN: 1. Status post cardiopulmonary arrest secondary to ventricular tachycardia arrest. 2. Status post ST elevation myocardial infarction and percutaneous coronary intervention of the l eft circumflex artery. 3. Cardiomyopathy. 4. Congestive heart failure. 5. Renal failure. 6. Severe encephalopathy. 7. History of hypertension. 8. Recurrence of sustained ventricular tachycardia. RECOMMENDATIONS: We will continue with the current cardiac care. Give an extra dose of Lasix and p otassium today. Will monitor on telemetry in the ICU closely. Vent support will be continued. Wea doreen as tolerated to be attempted. We will continue to closely monitor in the ICU but code status i s DNR per brother's request. More than 40 minutes of critical care time was spent managing this patient excluding any procedures. Dictated By: SERENA ALCARAZ MD AV/JUANY Conf#: [id number] DID#: [id number]
--- NOTE | 2016-12-01 16:31 | CONS ---
Date/Time of Note Date/Time of Note DATE: 12/01/16 TIME: 16:29 Assessment/Plan Assessment/Plan Additional Assessment/Plan 1. Acute kidney injury on possible previous chronic kidney disease with last creatinine known about 1.48 secondary to acute tubular necrosis from ischemic acute tubular necrosis from cardiogenic shock.- Improving with good urine output 2. Acute respiratory failure from cardiogenic shock, currently intubated on ventilator- failed weaning trial due to pulmonary congestion 3. Acute non-ST elevation myocardial infarction, s/p v tach arrest s/p pci of RCA, possible staged procedure to LCx required s/p IABP, now off 4. History of possible chronic kidney disease secondary to diabetic nephropathy , unknown stage. 5. History of type 2 diabetes mellitus. 6. History of hypertension. Plan: During OG tube insertion, pt had a episode of bradycardia, Weaning plan on hold for today, will reassess in AM remains intubated, ventilator care as per pulmonary Cr1.93, K low, already replaced with KCL 40mEQ PO X 1 dose today on Free water flush CT head with chronic multiple infarcts and ? hepatic, toxic encephalopathy on Brilinat Post cath will continue to follow up on patient DNR code status no indication for renal replacement therapy at this time Consultation Date/Type/Reason Admit Date/Time Nov 19, 2016 at 16:09 Initial Consult Date Nov Type of Consultation: NEPHROLOGY Referring Provider: PIO VEGA 24 HR Interval Summary Free Text/Dictation pt remains intubated, BP stable Exam/Review of Systems Vital Signs Vitals Vital Signs Date Time Temp Pulse Resp B/P Pulse Ox O2 Delivery O2 Flow Rate FiO2 12/01/16 15:00 57 21 100 30 12/01/16 10:00 142/85 Mechanical Ventilator 12/01/16 08:00 98.8 Intake and Output 11/30/16 11/30/16 12/01/16 15:00 23:00 07:00 Intake Total 971.082 ml 466.344 ml 326.4 ml Output Total 960 ml 780 ml 520 ml Balance 11.082 ml -313.656 ml -193.6 ml Exam GENERAL: no acute distress , remains intubated NECK: supple + Et tube LUNGS: Bilateral crackles + HEART: S1, S2, tachycardia, no murmur. ABDOMEN: Soft, morbidly obese. EXTREMITIES: 1 to 2+ pitting edema. No clubbing, cyanosis. NEUROLOGICAL: Uncooperative for exam PSYCHIATRIC: Not able to assess at this point. Results Result Diagram: 12/01/167 12/01/16 0407 Results 24 hrs Laboratory Tests Test 11/30/16 20:01 12/01/16 00:45 12/01/16 04:07 12/01/16 05:05 Bedside Glucose 126 88 72 White Blood Count 12.7 H Red Blood Count 3.54 L Hemoglobin 10.4 L Hematocrit 34.1 L Mean Corpuscular Volume 96.3 Mean Corpuscular Hemoglobin 29.4 Mean Corpuscular Hemoglobin Concent 30.5 L Red Cell Distribution Width 15.0 H Platelet Count 228 Mean Platelet Volume 12.1 H Neutrophils % 68.1 Lymphocytes % 19.3 Monocytes % 5.3 Eosinophils % 6.1 Basophils % 0.3 Nucleated Red Blood Cells % 0.0 Neutrophils # 8.7 H Lymphocytes # 2.5 Monocytes # 0.7 Eosinophils # 0.8 H Basophils # 0.0 Nucleated Red Blood Cells # 0.0 Sodium Level 143 Potassium Level 3.4 L Chloride Level 108 Carbon Dioxide Level 28 Anion Gap 10 Blood Urea Nitrogen 44 H Creatinine 1.93 H Glucose Level 101 Calcium Level 8.9 Magnesium Level 2.6 H Total Bilirubin 0.2 Direct Bilirubin 0.00 Indirect Bilirubin 0.2 Aspartate Amino Transf (AST/SGOT) 33 Alanine Aminotransferase (ALT/SGPT) 111 H Alkaline Phosphatase 103 Creatine Kinase < 20 L Creatine Kinase Index Creatinine Kinase MB (Mass) 1.09 Troponin I 0.669 *H B-Type Natriuretic Peptide 5270 H Total Protein 5.8 L Albumin 2.9 L Globulin 2.90 Albumin/Globulin Ratio 1.00 Test 12/01/16 08:38 12/01/16 12:26 Bedside Glucose 78 100 Medications Medications Current Medications Aspirin (Halfprin) 81 mg DAILY PO Last administered on 12/01/16 08:37; Admin Dose 81 MG; Start 11/20/16 at 09:00 Ticagrelor 90 mg 90 mg BID PO Last administered on 12/01/16 08:39; Admin Dose 90 MG; Start 11/19/16 at 21:00 Propofol 100 ml @ 3.818 mls/ hr Q12H IV Last administered on 12/01/16 12:40; Admin Dose 15.272 MLS/HR; Start 11/19/16 at 16:30 Fentanyl (Sublimaze) 100 ml @ 2.5 mls/hr TITRATE IV Last administered on 17:44; Admin Dose 5 MLS/HR; Start 11/19/16 at 17:00 Ondansetron HCl (Zofran Inj) 4 mg Q6H PRN IV NAUSEA AND/OR VOMITING; Start 04/27 at 17:00 Acetaminophen (Tylenol Liquid) 650 mg Q6H PRN PO PAIN LEVEL 1-3 OR FEVER; Start 11/19/16 at 17:00 Acetaminophen (Tylenol Supp) 650 mg Q4H PRN [place] PAIN LEVEL 1-3 OR FEVER; Start 11/19/16 at 17:00 Docusate Sodium (Colace) 100 mg Q12H PRN PO CONSTIPATION; Start 11/19/16 at 17: 00 Magnesium Hydroxide (Milk Of Mag) 30 ml DAILY PRN PO CONSTIPATION Last administered on 11/29/16 09:23; Admin Dose 30 ML; Start 11/19/16 at 17:00 Bisacodyl (Dulcolax Supp) 10 mg DAILY PRN [place] CONSTIPATION Last administered on 11/29/16 09:23; Admin Dose 10 MG; Start 11/19/16 at 17:00 Famotidine (Pepcid Iv) 20 mg DAILY IV Last administered on 12/01/16 08:42; Admin Dose 20 MG; Start 11/19/16 at 17:00 Insulin Aspart (Novolog Insulin Pen) NOVOLOG *MODERATE* ALGORI... Q4 SC Last administered on 11/30/16 16:28; Admin Dose 2 UNIT; Start 11/19/16 at 17:30 Miscellaneous Information 1 ea NOTE XX ; Start 11/19/16 at 17:30 Glucose (Glutose) 15 gm Q15M PRN PO DECREASED GLUCOSE; Start 11/19/16 at 17:30 Glucose (Glutose) 22.5 gm Q15M PRN PO DECREASED GLUCOSE; Start 11/19/16 at 17: 30 Dextrose (D50w Syringe) 25 ml Q15M PRN IV DECREASED GLUCOSE; Start 11/19/16 at 17:30 Dextrose (D50w Syringe) 50 ml Q15M PRN IV DECREASED GLUCOSE; Start 11/19/16 at 17:30 Glucagon (Glucagen) 1 mg Q15M PRN IM DECREASED GLUCOSE; Start 11/19/16 at 17:30 Glucose 15 gm 15 gm Q15M PRN BUCCAL DECREASED GLUCOSE; Start 11/19/16 at 17:30 Norepinephrine/ Dextrose (Levophed/D5W) 500 ml @ 1.875 mls/ hr TITRATE IV Last administered on 11/22/16 01:11; Admin Dose 7.5 MLS/HR; Start 11/20/16 at 19:30 Amiodarone HCl (Cordarone) 200 mg DAILY GTB Last administered on 12/01/16 08: 37; Admin Dose 200 MG; Start 11/23/16 at 09:00 Fluconazole 100 mg 100 mg DAILY NGT Last administered on 12/01/16 08:37; Admin Dose 100 MG; Start 11/25/16 at 09:00 Piperacillin Sod/ Tazobactam Sod (Zosyn 3.375gm/ 100 ml (Pmx)) 100 ml @ 100 mls /hr Q6 IVPB Last administered on 12/01/16 11:11; Admin Dose 100 MLS/HR; Start 11/24/16 at 12:00 Atorvastatin Calcium (Lipitor) 10 mg HS NGT Last administered on 11/30/16 20: 06; Admin Dose 10 MG; Start 11/24/16 at 21:00 Mupirocin (Bactroban) 1 applic BID TOP Last administered on 12/01/16 08:42; Admin Dose 1 APPLIC; Start 11/27/16 at 09:30 Insulin Glargine (Lantus) 20 unit DAILY@20 SC Last administered on 11/30/16 20 :08; Admin Dose 20 UNIT; Start 11/27/16 at 20:00 Propranolol HCl 10 mg 10 mg TID PO Last administered on 11/29/16 20:24; Admin Dose 10 MG; Start 11/27/16 at 21:00 Linezolid (Zyvox 600mg/D5W (Pmx)) 300 ml @ 300 mls/hr Q12 IVPB Last administered on 12/01/16 08:39; Admin Dose 300 MLS/HR; Start 11/28/16 at 11:00 Thiamine HCl (Vitamin B1) 100 mg DAILY IV Last administered on 11/30/16 08:50 ; Admin Dose 100 MG; Start 11/29/16 at 10:00 Folic Acid (Folic Acid) 1 mg DAILY NGT Last administered on 12/01/16 08:42; Admin Dose 1 MG; Start 11/29/16 at 10:00 Multivitamins (Multivitamin) 30 ml DAILY NGT Last administered on 12/01/16 08: 37; Admin Dose 30 ML; Start 11/29/16 at 10:30 FÁTIMA PERES MD Dec 01, 2016 16:31
[2016-12-01] MEDS: FENTAnyl (DRIP) 1000 mcg/100mL 100 ML IV SCH (17:17)
[2016-12-01] MEDS: INSULIN GLARGINE [LANtus] 3 ML PEN SC SCH (21:17)
[2016-12-01] MEDS: ATORVASTATIN 10 MG TAB NGT SCH (21:20)
[2016-12-02] VITALS (36 sets, daily range): BP systolic 99–160; BP diastolic 63–100; PULSE 51–76; RESP 16–27
[2016-12-02] MEDS: INSULIN ASPART [NOVOLOG] 3 ML PEN SC SCH ×6 (01:00→21:00)
[2016-12-02 05:09] LABS: ADD SCAN DIFF NO
[2016-12-02 05:20] LABS: BASOPHIL # 0.1 10^3/ul (0.0-0.1); BASOPHILS % 0.6 % (0.0-2.0); EOSINOPHILS # 0.6 10^3/ul (0.0-0.5); EOSINOPHILS % 4.9 % (0.0-7.0); HEMOGLOBIN 10.6 g/dl (14.0-18.0); LYMPHOCYTES # 2.4 10^3/ul (0.8-2.9); LYMPHOCYTES % 18.1 % (15.0-51.0); MEAN CORPUSCULAR HEMOGLOBIN 29.9 pg (29.0-33.0); MEAN CORPUSCULAR HGB CONC 31.2 g/dl (32.0-37.0); MEAN CORPUSCULAR VOLUME 95.8 fl (82.0-101.0); MEAN PLATELET VOLUME 11.8 fl (7.4-10.4); MONOCYTE # 0.9 10^3/ul (0.3-0.9); MONOCYTES % 6.5 % (0.0-11.0); NEUTROPHIL # 9.1 10^3/ul (1.6-7.5); NEUTROPHILS % 69.2 % (39.0-77.0); PLATELET COUNT 261 10^3/UL (140-415); RED BLOOD COUNT 3.55 10^6/ul (4.70-6.10); RED CELL DISTRIBUTION WIDTH 15.1 % (11.5-14.5); WHITE BLOOD COUNT 13.2 10^3/ul (4.8-10.8)
[2016-12-02 05:40] LABS: ALBUMIN 2.9 g/dl (3.3-4.9); ALBUMIN/GLOBULIN RATIO 0.93; BILIRUBIN,INDIRECT 0.2 mg/dl (0-1.1); BILIRUBIN,TOTAL 0.2 mg/dl (0.2-1.3); CALCIUM 9.3 mg/dl (8.4-10.2); CREATININE 1.91 mg/dl (0.61-1.24); POTASSIUM 3.9 mmol/L (3.5-5.1)
[2016-12-02] MEDS: PROPOFOL 100 ML IV SCH ×2 (06:10→20:44)
[2016-12-02] MEDS: PIPER-TAZO 3.375 GM IV (PMX) 100 ML IVPB SCH ×3 (06:10→18:49)
[2016-12-02 08:12] LABS: MAGNESIUM 2.5 mg/dl (1.7-2.5); PHOSPHORUS 3.7 mg/dl (2.5-4.9)
--- NOTE | 2016-12-02 08:30 | PN ---
Date/Time of Note Date/Time of Note DATE: 12/02/16 TIME: 08:18 Assessment/Plan VTE Prophylaxis VTE Prophylaxis Intervention: SCD's Lines/Catheters IV Catheter Type (from Nrsg): Central Line Central line still needed: Yes Urinary Cath still in place: Yes Reason Cath still needed: terminal illness/intractable pain Assessment/Plan Assessment/Plan This is an unfortunate 56 year old male with multiple medical problems who sustained STEMI and failed CPAP trial yesterday. 1. ST elevation myocardial infarction with a hemodynamic instability, status post ventricular tachycardia, cardioverted status post angiogram with PCI to the circumflex. On Fentanyl and Propofol for sedation Hemodynamically stable (mildly bradycardic) but still with encephalopathy when on sedation vacation, CPAP failed yesterday. CT head showing chronic findings only confirmed on MRI last night. Dr. Simeon following, on Brilinta and ASA. On po Amio. 2. Acute respiratory failure secondary to cardiogenic shock and ST elevation myocardial infarction. Also with history of chronic obstructive pulmonary disease Intubated and sedated on Fentanyl and Propofol; failed CPAP trial, lethargic and generally unresponsive. CXR with CHF exacerbation, OFF IVF now and prn Lasix doses. On Zosyn with Klebsiella and MSSA on sputum cx, and also on Zyvox. WBC slightly increased. Pulmonary for Vent management. On tube feedings 3. Acute kidney injury on probable chronic kidney disease, likely secondary to acute tubular necrosis; baseline creatinine is about 1.48 Monitor Renal function still improving, off IVF and diuretics prn . Repleting electrolytes prn, UOP still OK; sodium is slightly increased today to 145. Nephrology, Dr Welch following. 4. Encephalopathy with reported hx of drug use (cocaine, bath salts..) and heavy alcohol use. sedation vacation today, CT head results noted with findings of chronic infarcts (per Brother, patient had hx of multiple CVAs), ? embolic in nature, given PAF, will need anticoagulation, currently on dual antiplatelets already .. will discuss with Cardiology Ammonia wnl. MRI confirming multiple chronic infarcts, no masses or signs of MS Continue thiamine IV, Folic Acid and MVI 5. Acute ischemic changes b/l toes, now seems better perfused but likely embolic events with angio. Pulses present right greater than left. 6. Shock Liver, with elevated LFTs and coagulopathy currently. Resolving. Avoiding hepatotoxic agents. 7. Diabetes mellitus. His blood sugars are fairly stable. A1c 7.1 Continue sliding scale insulin and Lantus to 20 units, continue SSI while on TF 8. Thrush: Continue Diflucan 9. Obstructive sleep apnea on CPAP at night as outpatient. 10. Tobacco use. Hopefully the patient will quit after this. Nicotine patch today. Prophylaxis. Pepcid for GI ppx and SCDs. DISPOSITION: Guarded prognosis, CPAP trial today. Brother Jv was tracked down, he lives in [facility] and confirmed patient has been chronically ill and also active drug abuser including alcoholic, bath salts, ? speed (also hx of dealing cocaine, bath salts?) . Discussed condition and current prognosis with Brother Jv, and per brother patient to be DNR. Per Antonella BAUTISTA, possible terminal extubation on Sunday is not improved. Will discuss with team. Subjective 24 Hr Interval Summary Free Text/Dictation Had bleeding from oropharnyx after placement of OG tube yesterday. Failed CPAP trial yesterday as well. The patient is basically non-responsive to tactile stiimuli only to open his eyes slightly. This is no significant change from his baseline. Otherwise, no events overnight per Antonella BAUTISTA. Subjective hx not possible: pt non-verbal Eyes: no complaints Exam/Review of Systems Vital Signs Vitals Vital Signs Date Time Temp Pulse Resp B/P Pulse Ox O2 Delivery O2 Flow Rate FiO2 12/02/16 06:00 61 17 109/69 99 12/02/16 05:48 30 12/02/16 05:00 Mechanical Ventilator 12/02/16 04:00 98.0 Intake and Output 12/01/16 12/01/16 12/02/16 15:00 23:00 07:00 Intake Total 804.268 ml 875.816 ml 670 ml Output Total 810 ml 705 ml 650 ml Balance -5.732 ml 170.816 ml 20 ml Exam Constitutional: non-verbal Head: normocephalic Eyes: nl conjunctiva ENMT: intubated Neck: supple Respiratory: clear to auscultation Cardiovascular: regular rate and rhythm Gastrointestinal: bowel sounds, soft Extremities: cyanosis, other (Toes are ischemic), pitting pedal edema Neurological: lethargic, unresponsive Results Result Diagram: 12/02/1639912/02/16399 Results 24 hrs Laboratory Tests Test 12/01/16 08:38 12/01/16 12:26 12/01/16 16:57 12/01/16 21:14 Bedside Glucose 78 100 113 117 Test 12/02/16 00:52 12/02/16 04:00 12/02/16 05:13 Bedside Glucose 128 101 White Blood Count 13.2 H Red Blood Count 3.55 L Hemoglobin 10.6 L Hematocrit 34.0 L Mean Corpuscular Volume 95.8 Mean Corpuscular Hemoglobin 29.9 Mean Corpuscular Hemoglobin Concent 31.2 L Red Cell Distribution Width 15.1 H Platelet Count 261 Mean Platelet Volume 11.8 H Neutrophils % 69.2 Lymphocytes % 18.1 Monocytes % 6.5 Eosinophils % 4.9 Basophils % 0.6 Nucleated Red Blood Cells % 0.0 Neutrophils # 9.1 H Lymphocytes # 2.4 Monocytes # 0.9 Eosinophils # 0.6 H Basophils # 0.1 Nucleated Red Blood Cells # 0.0 Sodium Level 145 H Potassium Level 3.9 Chloride Level 110 Carbon Dioxide Level 26 Anion Gap 13 Blood Urea Nitrogen 40 H Creatinine 1.91 H Glucose Level 89 Calcium Level 9.3 Phosphorus Level 3.7 Magnesium Level 2.5 Total Bilirubin 0.2 Direct Bilirubin 0.00 Indirect Bilirubin 0.2 Aspartate Amino Transf (AST/SGOT) 41 Alanine Aminotransferase (ALT/SGPT) 107 H Alkaline Phosphatase 107 B-Type Natriuretic Peptide 5830 H Total Protein 6.0 L Albumin 2.9 L Globulin 3.10 Albumin/Globulin Ratio 0.93 Medications Medications Current Medications Aspirin (Halfprin) 81 mg DAILY PO Last administered on 12/01/16 08:37; Admin Dose 81 MG; Start 11/20/16 at 09:00 Ticagrelor 90 mg 90 mg BID PO Last administered on 12/01/16 21:21; Admin Dose 90 MG; Start 11/19/16 at 21:00 Propofol 100 ml @ 3.818 mls/ hr Q12H IV Last administered on 12/02/16 06:10; Admin Dose 15.272 MLS/HR; Start 11/19/16 at 16:30 Fentanyl (Sublimaze) 100 ml @ 2.5 mls/hr TITRATE IV Last administered on 17:17; Admin Dose 5 MLS/HR; Start 11/19/16 at 17:00 Ondansetron HCl (Zofran Inj) 4 mg Q6H PRN IV NAUSEA AND/OR VOMITING; Start 04/27 at 17:00 Acetaminophen (Tylenol Liquid) 650 mg Q6H PRN PO PAIN LEVEL 1-3 OR FEVER; Start 11/19/16 at 17:00 Acetaminophen (Tylenol Supp) 650 mg Q4H PRN [place] PAIN LEVEL 1-3 OR FEVER; Start 11/19/16 at 17:00 Docusate Sodium (Colace) 100 mg Q12H PRN PO CONSTIPATION; Start 11/19/16 at 17: 00 Magnesium Hydroxide (Milk Of Mag) 30 ml DAILY PRN PO CONSTIPATION Last administered on 11/29/16 09:23; Admin Dose 30 ML; Start 11/19/16 at 17:00 Bisacodyl (Dulcolax Supp) 10 mg DAILY PRN [place] CONSTIPATION Last administered on 11/29/16 09:23; Admin Dose 10 MG; Start 11/19/16 at 17:00 Famotidine (Pepcid Iv) 20 mg DAILY IV Last administered on 12/01/16 08:42; Admin Dose 20 MG; Start 11/19/16 at 17:00 Insulin Aspart (Novolog Insulin Pen) NOVOLOG *MODERATE* ALGORI... Q4 SC Last administered on 11/30/16 16:28; Admin Dose 2 UNIT; Start 11/19/16 at 17:30 Miscellaneous Information 1 ea NOTE XX ; Start 11/19/16 at 17:30 Glucose (Glutose) 15 gm Q15M PRN PO DECREASED GLUCOSE; Start 11/19/16 at 17:30 Glucose (Glutose) 22.5 gm Q15M PRN PO DECREASED GLUCOSE; Start 11/19/16 at 17: 30 Dextrose (D50w Syringe) 25 ml Q15M PRN IV DECREASED GLUCOSE; Start 11/19/16 at 17:30 Dextrose (D50w Syringe) 50 ml Q15M PRN IV DECREASED GLUCOSE; Start 11/19/16 at 17:30 Glucagon (Glucagen) 1 mg Q15M PRN IM DECREASED GLUCOSE; Start 11/19/16 at 17:30 Glucose 15 gm 15 gm Q15M PRN BUCCAL DECREASED GLUCOSE; Start 11/19/16 at 17:30 Norepinephrine/ Dextrose (Levophed/D5W) 500 ml @ 1.875 mls/ hr TITRATE IV Last administered on 11/22/16 01:11; Admin Dose 7.5 MLS/HR; Start 11/20/16 at 19:30 Amiodarone HCl (Cordarone) 200 mg DAILY GTB Last administered on 12/01/16 08: 37; Admin Dose 200 MG; Start 11/23/16 at 09:00 Fluconazole 100 mg 100 mg DAILY NGT Last administered on 12/01/16 08:37; Admin Dose 100 MG; Start 11/25/16 at 09:00 Piperacillin Sod/ Tazobactam Sod (Zosyn 3.375gm/ 100 ml (Pmx)) 100 ml @ 100 mls /hr Q6 IVPB Last administered on 12/02/16 06:10; Admin Dose 100 MLS/HR; Start 11/24/16 at 12:00 Atorvastatin Calcium (Lipitor) 10 mg HS NGT Last administered on 12/01/16 21: 20; Admin Dose 10 MG; Start 11/24/16 at 21:00 Mupirocin (Bactroban) 1 applic BID TOP Last administered on 12/01/16 21:14; Admin Dose 1 APPLIC; Start 11/27/16 at 09:30 Insulin Glargine (Lantus) 20 unit DAILY@20 SC Last administered on 12/01/16 21 :17; Admin Dose 20 UNIT; Start 11/27/16 at 20:00 Propranolol HCl 10 mg 10 mg TID PO Last administered on 11/29/16 20:24; Admin Dose 10 MG; Start 11/27/16 at 21:00 Linezolid (Zyvox 600mg/D5W (Pmx)) 300 ml @ 300 mls/hr Q12 IVPB Last administered on 12/01/16 21:20; Admin Dose 300 MLS/HR; Start 11/28/16 at 11:00 Thiamine HCl (Vitamin B1) 100 mg DAILY IV Last administered on 11/30/16 08:50 ; Admin Dose 100 MG; Start 11/29/16 at 10:00 Folic Acid (Folic Acid) 1 mg DAILY NGT Last administered on 12/01/16 08:42; Admin Dose 1 MG; Start 11/29/16 at 10:00 Multivitamins (Multivitamin) 30 ml DAILY NGT Last administered on 12/01/16t 08: 37; Admin Dose 30 ML; Start 11/29/16 at 10:30 KYM BLUE MD Dec 02, 2016 08:29
--- NOTE | 2016-12-02 09:01 | CONS ---
Date/Time of Note Date/Time of Note DATE: 12/02/16 TIME: 08:58 Assessment/Plan Assessment/Plan Additional Assessment/Plan Chest x-ray was reviewed from late yesterday morning which is showing patchy bilateral it without infiltrates. Endotracheal tube is at an adequate level. Ventilator setting; AC of 20, tidal volume 500, PEEP of 5, 30% FiO2. Patient currently on propofol drip at 20 mics per kilogram per minute. Assessment recommendations; 1. Patient admitted with cardiac arrest status post CPR 2. Patient also underwent coronary angiography with stenting of circumflex lesion. 2. Likely hypoxic encephalopathy. Patient has failed numerous weaning trials from ventilator. 3. Renal insufficiency. 4. Bilateral pneumonia. 5. History of alcoholism. Continue current treatment. His family apparently wants him to be terminally extubated in 48 hours. Prognosis remains poor. Consultation Date/Type/Reason Admit Date/Time Nov 19, 2016 at 16:09 Type of Consultation: Pulmonary/critical care Referring Provider: PIO VEGA 24 HR Interval Summary Free Text/Dictation Patient condition remains unchanged. Still requiring full ventilator support. Patient has failed multiple weaning trials from ventilator. General examination; middle-aged male, obese, orally intubated, sedated. Currently in no distress. Exam/Review of Systems Vital Signs Vitals Vital Signs Date Time Temp Pulse Resp B/P Pulse Ox O2 Delivery O2 Flow Rate FiO2 12/02/16 06:00 61 17 109/69 99 12/02/16 05:48 30 12/02/16 05:00 Mechanical Ventilator 12/02/16 04:00 98.0 Intake and Output 12/01/16 12/01/16 12/02/16 14:59 22:59 06:59 Intake Total 743.996 ml 891.088 ml 715 ml Output Total 690 ml 705 ml 770 ml Balance 53.996 ml 186.088 ml -55 ml Exam HEENT exam; supple neck, no JVD. No lymphadenopathy. Midline trachea. No thyromegaly. Patient is edentulous. Orally intubated. Pupils are small bilaterally. No neck masses. Chest examination; diminished but clear breath sound. S1-S2 audible, no murmurs. Regular rhythm. Abdomen examination; soft, bowel sounds audible. No organomegaly. Extremity exam; trace peripheral edema. VACUUM SYSTEM TESTER examination; patient is sedated. Results Result Diagram: 12/02/16 0400 12/02/16 0400 Results 24 hrs Laboratory Tests Test 12/01/16 12:26 12/01/16 16:57 12/01/16 21:14 12/02/16 00:52 Bedside Glucose 100 113 117 128 Test 12/02/16 04:00 12/02/16 05:13 White Blood Count 13.2 H Red Blood Count 3.55 L Hemoglobin 10.6 L Hematocrit 34.0 L Mean Corpuscular Volume 95.8 Mean Corpuscular Hemoglobin 29.9 Mean Corpuscular Hemoglobin Concent 31.2 L Red Cell Distribution Width 15.1 H Platelet Count 261 Mean Platelet Volume 11.8 H Neutrophils % 69.2 Lymphocytes % 18.1 Monocytes % 6.5 Eosinophils % 4.9 Basophils % 0.6 Nucleated Red Blood Cells % 0.0 Neutrophils # 9.1 H Lymphocytes # 2.4 Monocytes # 0.9 Eosinophils # 0.6 H Basophils # 0.1 Nucleated Red Blood Cells # 0.0 Sodium Level 145 H Potassium Level 3.9 Chloride Level 110 Carbon Dioxide Level 26 Anion Gap 13 Blood Urea Nitrogen 40 H Creatinine 1.91 H Glucose Level 89 Calcium Level 9.3 Phosphorus Level 3.7 Magnesium Level 2.5 Total Bilirubin 0.2 Direct Bilirubin 0.00 Indirect Bilirubin 0.2 Aspartate Amino Transf (AST/SGOT) 41 Alanine Aminotransferase (ALT/SGPT) 107 H Alkaline Phosphatase 107 B-Type Natriuretic Peptide 5830 H Total Protein 6.0 L Albumin 2.9 L Globulin 3.10 Albumin/Globulin Ratio 0.93 Bedside Glucose 101 Medications Medications Current Medications Aspirin (Halfprin) 81 mg DAILY PO Last administered on 12/01/16 08:37; Admin Dose 81 MG; Start 11/20/16 at 09:00 Ticagrelor 90 mg 90 mg BID PO Last administered on 12/01/16 21:21; Admin Dose 90 MG; Start 11/19/16 at 21:00 Propofol 100 ml @ 3.818 mls/ hr Q12H IV Last administered on 12/02/16 06:10; Admin Dose 15.272 MLS/HR; Start 11/19/16 at 16:30 Fentanyl (Sublimaze) 100 ml @ 2.5 mls/hr TITRATE IV Last administered on 17:17; Admin Dose 5 MLS/HR; Start 11/19/16 at 17:00 Ondansetron HCl (Zofran Inj) 4 mg Q6H PRN IV NAUSEA AND/OR VOMITING; Start 04/27 at 17:00 Acetaminophen (Tylenol Liquid) 650 mg Q6H PRN PO PAIN LEVEL 1-3 OR FEVER; Start 11/19/16 at 17:00 Acetaminophen (Tylenol Supp) 650 mg Q4H PRN [place] PAIN LEVEL 1-3 OR FEVER; Start 11/19/16 at 17:00 Docusate Sodium (Colace) 100 mg Q12H PRN PO CONSTIPATION; Start 11/19/16 at 17: 00 Magnesium Hydroxide (Milk Of Mag) 30 ml DAILY PRN PO CONSTIPATION Last administered on 11/29/16 09:23; Admin Dose 30 ML; Start 11/19/16 at 17:00 Bisacodyl (Dulcolax Supp) 10 mg DAILY PRN [place] CONSTIPATION Last administered on 11/29/16 09:23; Admin Dose 10 MG; Start 11/19/16 at 17:00 Famotidine (Pepcid Iv) 20 mg DAILY IV Last administered on 12/01/16 08:42; Admin Dose 20 MG; Start 11/19/16 at 17:00 Insulin Aspart (Novolog Insulin Pen) NOVOLOG *MODERATE* ALGORI... Q4 SC Last administered on 11/30/16 16:28; Admin Dose 2 UNIT; Start 11/19/16 at 17:30 Miscellaneous Information 1 ea NOTE XX ; Start 11/19/16 at 17:30 Glucose (Glutose) 15 gm Q15M PRN PO DECREASED GLUCOSE; Start 11/19/16 at 17:30 Glucose (Glutose) 22.5 gm Q15M PRN PO DECREASED GLUCOSE; Start 11/19/16 at 17: 30 Dextrose (D50w Syringe) 25 ml Q15M PRN IV DECREASED GLUCOSE; Start 11/19/16 at 17:30 Dextrose (D50w Syringe) 50 ml Q15M PRN IV DECREASED GLUCOSE; Start 11/19/16 at 17:30 Glucagon (Glucagen) 1 mg Q15M PRN IM DECREASED GLUCOSE; Start 11/19/16 at 17:30 Glucose 15 gm 15 gm Q15M PRN BUCCAL DECREASED GLUCOSE; Start 11/19/16 at 17:30 Norepinephrine/ Dextrose (Levophed/D5W) 500 ml @ 1.875 mls/ hr TITRATE IV Last administered on 11/22/16 01:11; Admin Dose 7.5 MLS/HR; Start 11/20/16 at 19:30 Amiodarone HCl (Cordarone) 200 mg DAILY GTB Last administered on 12/01/16 08: 37; Admin Dose 200 MG; Start 11/23/16 at 09:00 Fluconazole 100 mg 100 mg DAILY NGT Last administered on 12/01/16 08:37; Admin Dose 100 MG; Start 11/25/16 at 09:00 Piperacillin Sod/ Tazobactam Sod (Zosyn 3.375gm/ 100 ml (Pmx)) 100 ml @ 100 mls /hr Q6 IVPB Last administered on 12/02/16 06:10; Admin Dose 100 MLS/HR; Start 11/24/16 at 12:00 Atorvastatin Calcium (Lipitor) 10 mg HS NGT Last administered on 12/01/16 21: 20; Admin Dose 10 MG; Start 11/24/16 at 21:00 Mupirocin (Bactroban) 1 applic BID TOP Last administered on 12/01/16 21:14; Admin Dose 1 APPLIC; Start 11/27/16 at 09:30 Insulin Glargine (Lantus) 20 unit DAILY@20 SC Last administered on 12/01/16 21 :17; Admin Dose 20 UNIT; Start 11/27/16 at 20:00 Propranolol HCl 10 mg 10 mg TID PO Last administered on 11/29/16 20:24; Admin Dose 10 MG; Start 11/27/16 at 21:00 Linezolid (Zyvox 600mg/D5W (Pmx)) 300 ml @ 300 mls/hr Q12 IVPB Last administered on 12/01/16 21:20; Admin Dose 300 MLS/HR; Start 11/28/16 at 11:00 Thiamine HCl (Vitamin B1) 100 mg DAILY IV Last administered on 11/30/16 08:50 ; Admin Dose 100 MG; Start 11/29/16 at 10:00 Folic Acid (Folic Acid) 1 mg DAILY NGT Last administered on 12/01/16 08:42; Admin Dose 1 MG; Start 11/29/16 at 10:00 Multivitamins (Multivitamin) 30 ml DAILY NGT Last administered on 12/01/16t 08: 37; Admin Dose 30 ML; Start 11/29/16 at 10:30 ELEONORA LEWIS Dec 02, 2016 09:01
[2016-12-02] MEDS: PROPRANOLOL 10 MG TAB PO SCH ×3 (09:15→21:00)
[2016-12-02] MEDS: THIAMINE 200 MG INJ IV SCH (09:15)
[2016-12-02] MEDS: MULTIVITAMINS 30 ML CUP NGT SCH (09:43)
[2016-12-02] MEDS: FLUCONAZOLE 100 MG TAB NGT SCH (09:43)
[2016-12-02] MEDS: FAMOTIDINE 20 MG INJ IV SCH (09:43)
[2016-12-02] MEDS: ASPIRIN (EC) 81 MG TAB PO SCH (09:44)
[2016-12-02] MEDS: TICAGRELOR 90 MG TABLET PO SCH ×2 (09:44→21:33)
[2016-12-02] MEDS: LINEZOLID 600 MG/D5W (PMX) 300 ML IVPB SCH ×2 (09:44→21:31)
[2016-12-02] MEDS: FOLIC ACID 1 MG TAB NGT SCH (09:44)
[2016-12-02] MEDS: MUPIROCIN 2% 22 GM OINT TOP SCH ×2 (09:45→21:35)
[2016-12-02] MEDS: AMIODARONE 200 MG TAB GTB SCH (09:55)
--- NOTE | 2016-12-02 12:14 | PN ---
Date/Time of Note Date/Time of Note DATE: 12/02/16 TIME: 12:13 Assessment/Plan VTE Prophylaxis VTE Prophylaxis Intervention: SCD's Lines/Catheters IV Catheter Type (from Nrs): Central Line Central line still needed: No Urinary Cath still in place: Yes Reason Cath still needed: urinary retention Assessment/Plan Assessment/Plan 1. Status post cardiopulmonary arrest secondary to ventricular tachycardia arrest. 2. Status post ST elevation myocardial infarction and percutaneous coronary intervention of the left circumflex artery. 3. Cardiomyopathy. 4. Congestive heart failure. 5. Renal failure. 6. Severe encephalopathy. 7. History of hypertension. 8. Recurrence of sustained ventricular tachycardia. -We will continue with the current cardiac care. -Will monitor on telemetry in the ICU closely. Vent support will be continued. Weaning as tolerated to be attempted. -We will continue to closely monitor in the ICU but code status is DNR per brother's request. -continue cv meds Subjective 24 Hr Interval Summary Free Text/Dictation The patient with no change Exam/Review of Systems Vital Signs Vitals Vital Signs Date Time Temp Pulse Resp B/P Pulse Ox O2 Delivery O2 Flow Rate FiO2 12/02/16 11:25 54 20 100 30 12/02/16 06:00 109/69 12/02/16 05:00 Mechanical Ventilator 12/02/16 04:00 98.0 Intake and Output 12/01/16 12/01/16 12/02/16 15:00 23:00 07:00 Intake Total 804.268 ml 875.816 ml 670 ml Output Total 810 ml 705 ml 650 ml Balance -5.732 ml 170.816 ml 20 ml Results Result Diagram: 12/02/16 0400 12/02/16 0400 Results 24 hrs Laboratory Tests Test 12/01/16 12:26 12/01/16 16:57 12/01/16 21:14 12/02/16 00:52 Bedside Glucose 100 113 117 128 Test 12/02/16 04:00 12/02/16 05:13 12/02/16 09:47 White Blood Count 13.2 H Red Blood Count 3.55 L Hemoglobin 10.6 L Hematocrit 34.0 L Mean Corpuscular Volume 95.8 Mean Corpuscular Hemoglobin 29.9 Mean Corpuscular Hemoglobin Concent 31.2 L Red Cell Distribution Width 15.1 H Platelet Count 261 Mean Platelet Volume 11.8 H Neutrophils % 69.2 Lymphocytes % 18.1 Monocytes % 6.5 Eosinophils % 4.9 Basophils % 0.6 Nucleated Red Blood Cells % 0.0 Neutrophils # 9.1 H Lymphocytes # 2.4 Monocytes # 0.9 Eosinophils # 0.6 H Basophils # 0.1 Nucleated Red Blood Cells # 0.0 Sodium Level 145 H Potassium Level 3.9 Chloride Level 110 Carbon Dioxide Level 26 Anion Gap 13 Blood Urea Nitrogen 40 H Creatinine 1.91 H Glucose Level 89 Calcium Level 9.3 Phosphorus Level 3.7 Magnesium Level 2.5 Total Bilirubin 0.2 Direct Bilirubin 0.00 Indirect Bilirubin 0.2 Aspartate Amino Transf (AST/SGOT) 41 Alanine Aminotransferase (ALT/SGPT) 107 H Alkaline Phosphatase 107 B-Type Natriuretic Peptide 5830 H Total Protein 6.0 L Albumin 2.9 L Globulin 3.10 Albumin/Globulin Ratio 0.93 Bedside Glucose 101 101 Medications Medications Current Medications Aspirin (Halfprin) 81 mg DAILY PO Last administered on 12/02/16 09:44; Admin Dose 81 MG; Start 11/20/16 at 09:00 Ticagrelor 90 mg 90 mg BID PO Last administered on 12/02/16 09:44; Admin Dose 90 MG; Start 11/19/16 at 21:00 Propofol 100 ml @ 3.818 mls/ hr Q12H IV Last administered on 12/02/16 06:10; Admin Dose 15.272 MLS/HR; Start 11/19/16 at 16:30 Fentanyl (Sublimaze) 100 ml @ 2.5 mls/hr TITRATE IV Last administered on 17:17; Admin Dose 5 MLS/HR; Start 11/19/16 at 17:00 Ondansetron HCl (Zofran Inj) 4 mg Q6H PRN IV NAUSEA AND/OR VOMITING; Start 04/27 at 17:00 Acetaminophen (Tylenol Liquid) 650 mg Q6H PRN PO PAIN LEVEL 1-3 OR FEVER; Start 11/19/16 at 17:00 Acetaminophen (Tylenol Supp) 650 mg Q4H PRN [place] PAIN LEVEL 1-3 OR FEVER; Start 11/19/16 at 17:00 Docusate Sodium (Colace) 100 mg Q12H PRN PO CONSTIPATION; Start 11/19/16 at 17: 00 Magnesium Hydroxide (Milk Of Mag) 30 ml DAILY PRN PO CONSTIPATION Last administered on 11/29/16 09:23; Admin Dose 30 ML; Start 11/19/16 at 17:00 Bisacodyl (Dulcolax Supp) 10 mg DAILY PRN [place] CONSTIPATION Last administered on 11/29/16 09:23; Admin Dose 10 MG; Start 11/19/16 at 17:00 Famotidine (Pepcid Iv) 20 mg DAILY IV Last administered on 12/02/16 09:43; Admin Dose 20 MG; Start 11/19/16 at 17:00 Insulin Aspart (Novolog Insulin Pen) NOVOLOG *MODERATE* ALGORI... Q4 SC Last administered on 11/30/16 16:28; Admin Dose 2 UNIT; Start 11/19/16 at 17:30 Miscellaneous Information 1 ea NOTE XX ; Start 11/19/16 at 17:30 Glucose (Glutose) 15 gm Q15M PRN PO DECREASED GLUCOSE; Start 11/19/16 at 17:30 Glucose (Glutose) 22.5 gm Q15M PRN PO DECREASED GLUCOSE; Start 11/19/16 at 17: 30 Dextrose (D50w Syringe) 25 ml Q15M PRN IV DECREASED GLUCOSE; Start 11/19/16 at 17:30 Dextrose (D50w Syringe) 50 ml Q15M PRN IV DECREASED GLUCOSE; Start 11/19/16 at 17:30 Glucagon (Glucagen) 1 mg Q15M PRN IM DECREASED GLUCOSE; Start 11/19/16 at 17:30 Glucose 15 gm 15 gm Q15M PRN BUCCAL DECREASED GLUCOSE; Start 11/19/16 at 17:30 Norepinephrine/ Dextrose (Levophed/D5W) 500 ml @ 1.875 mls/ hr TITRATE IV Last administered on 11/22/16 01:11; Admin Dose 7.5 MLS/HR; Start 11/20/16 at 19:30 Amiodarone HCl (Cordarone) 200 mg DAILY GTB Last administered on 12/01/16 08: 37; Admin Dose 200 MG; Start 11/23/16 at 09:00 Fluconazole 100 mg 100 mg DAILY NGT Last administered on 12/02/16 09:43; Admin Dose 100 MG; Start 11/25/16 at 09:00 Piperacillin Sod/ Tazobactam Sod (Zosyn 3.375gm/ 100 ml (Pmx)) 100 ml @ 100 mls /hr Q6 IVPB Last administered on 12/02/16 06:10; Admin Dose 100 MLS/HR; Start 11/24/16 at 12:00 Atorvastatin Calcium (Lipitor) 10 mg HS NGT Last administered on 12/01/16 21: 20; Admin Dose 10 MG; Start 11/24/16 at 21:00 Mupirocin (Bactroban) 1 applic BID TOP Last administered on 12/02/16 09:45; Admin Dose 1 APPLIC; Start 11/27/16 at 09:30 Insulin Glargine (Lantus) 20 unit DAILY@20 SC Last administered on 12/01/16 21 :17; Admin Dose 20 UNIT; Start 11/27/16 at 20:00 Propranolol HCl 10 mg 10 mg TID PO Last administered on 11/29/16 20:24; Admin Dose 10 MG; Start 11/27/16 at 21:00 Linezolid (Zyvox 600mg/D5W (Pmx)) 300 ml @ 300 mls/hr Q12 IVPB Last administered on 12/02/16 09:44; Admin Dose 300 MLS/HR; Start 11/28/16 at 11:00 Thiamine HCl (Vitamin B1) 100 mg DAILY IV Last administered on 11/30/16 08:50 ; Admin Dose 100 MG; Start 11/29/16 at 10:00 Folic Acid (Folic Acid) 1 mg DAILY NGT Last administered on 12/02/16 09:44; Admin Dose 1 MG; Start 11/29/16 at 10:00 Multivitamins (Multivitamin) 30 ml DAILY NGT Last administered on 12/02/16 09: 43; Admin Dose 30 ML; Start 11/29/16 at 10:30 ROB ROBIN MD Dec 02, 2016 12:14
--- NOTE | 2016-12-02 12:53 | CONS ---
Date/Time of Note Date/Time of Note DATE: 12/02/16 TIME: 12:52 Assessment/Plan Assessment/Plan Additional Assessment/Plan 1. Acute kidney injury on possible previous chronic kidney disease with last creatinine known about 1.48 secondary to acute tubular necrosis from ischemic acute tubular necrosis from cardiogenic shock.- Improving with good urine output 2. Acute respiratory failure from cardiogenic shock, currently intubated on ventilator- failed weaning trial due to pulmonary congestion 3. Acute non-ST elevation myocardial infarction, s/p v tach arrest s/p pci of RCA, possible staged procedure to LCx required s/p IABP, now off 4. History of possible chronic kidney disease secondary to diabetic nephropathy , unknown stage. 5. History of type 2 diabetes mellitus. 6. History of hypertension. Plan: remains intubated, ventilator care as per pulmonary Cr1.9, on Free water flush CT head with chronic multiple infarcts and ? hepatic, toxic encephalopathy on Brilinat Post cath will continue to follow up on patient DNR code status no indication for renal replacement therapy at this time Consultation Date/Type/Reason Admit Date/Time Nov 19, 2016 at 16:09 Initial Consult Date Nov Type of Consultation: NEPHROLOGY Referring Provider: PIO VEGA Exam/Review of Systems Vital Signs Vitals Vital Signs Date Time Temp Pulse Resp B/P Pulse Ox O2 Delivery O2 Flow Rate FiO2 12/02/16 11:25 54 20 100 30 12/02/16 06:00 109/69 12/02/16 05:00 Mechanical Ventilator 12/02/16 04:00 98.0 Intake and Output 12/01/16 12/01/16 12/02/16 15:00 23:00 07:00 Intake Total 804.268 ml 875.816 ml 670 ml Output Total 810 ml 705 ml 650 ml Balance -5.732 ml 170.816 ml 20 ml Exam GENERAL: no acute distress , remains intubated NECK: supple + Et tube LUNGS: Bilateral crackles + HEART: S1, S2, tachycardia, no murmur. ABDOMEN: Soft, morbidly obese. EXTREMITIES: 1 to 2+ pitting edema. No clubbing, cyanosis. NEUROLOGICAL: Uncooperative for exam PSYCHIATRIC: Not able to assess at this point. Results Result Diagram: 12/02/16 0400 12/02/16 0400 Results 24 hrs Laboratory Tests Test 12/01/16 16:57 12/01/16 21:14 12/02/16 00:52 12/02/16 04:00 Bedside Glucose 113 117 128 White Blood Count 13.2 H Red Blood Count 3.55 L Hemoglobin 10.6 L Hematocrit 34.0 L Mean Corpuscular Volume 95.8 Mean Corpuscular Hemoglobin 29.9 Mean Corpuscular Hemoglobin Concent 31.2 L Red Cell Distribution Width 15.1 H Platelet Count 261 Mean Platelet Volume 11.8 H Neutrophils % 69.2 Lymphocytes % 18.1 Monocytes % 6.5 Eosinophils % 4.9 Basophils % 0.6 Nucleated Red Blood Cells % 0.0 Neutrophils # 9.1 H Lymphocytes # 2.4 Monocytes # 0.9 Eosinophils # 0.6 H Basophils # 0.1 Nucleated Red Blood Cells # 0.0 Sodium Level 145 H Potassium Level 3.9 Chloride Level 110 Carbon Dioxide Level 26 Anion Gap 13 Blood Urea Nitrogen 40 H Creatinine 1.91 H Glucose Level 89 Calcium Level 9.3 Phosphorus Level 3.7 Magnesium Level 2.5 Total Bilirubin 0.2 Direct Bilirubin 0.00 Indirect Bilirubin 0.2 Aspartate Amino Transf (AST/SGOT) 41 Alanine Aminotransferase (ALT/SGPT) 107 H Alkaline Phosphatase 107 B-Type Natriuretic Peptide 5830 H Total Protein 6.0 L Albumin 2.9 L Globulin 3.10 Albumin/Globulin Ratio 0.93 Test 12/02/16 05:13 12/02/16 09:47 Bedside Glucose 101 101 Medications Medications Current Medications Aspirin (Halfprin) 81 mg DAILY PO Last administered on 12/02/16 09:44; Admin Dose 81 MG; Start 11/20/16 at 09:00 Ticagrelor 90 mg 90 mg BID PO Last administered on 12/02/16 09:44; Admin Dose 90 MG; Start 11/19/16 at 21:00 Propofol 100 ml @ 3.818 mls/ hr Q12H IV Last administered on 12/02/16 06:10; Admin Dose 15.272 MLS/HR; Start 11/19/16 at 16:30 Fentanyl (Sublimaze) 100 ml @ 2.5 mls/hr TITRATE IV Last administered on 17:17; Admin Dose 5 MLS/HR; Start 11/19/16 at 17:00 Ondansetron HCl (Zofran Inj) 4 mg Q6H PRN IV NAUSEA AND/OR VOMITING; Start 04/27 at 17:00 Acetaminophen (Tylenol Liquid) 650 mg Q6H PRN PO PAIN LEVEL 1-3 OR FEVER; Start 11/19/16 at 17:00 Acetaminophen (Tylenol Supp) 650 mg Q4H PRN [place] PAIN LEVEL 1-3 OR FEVER; Start 11/19/16 at 17:00 Docusate Sodium (Colace) 100 mg Q12H PRN PO CONSTIPATION; Start 11/19/16 at 17: 00 Magnesium Hydroxide (Milk Of Mag) 30 ml DAILY PRN PO CONSTIPATION Last administered on 11/29/16 09:23; Admin Dose 30 ML; Start 11/19/16 at 17:00 Bisacodyl (Dulcolax Supp) 10 mg DAILY PRN [place] CONSTIPATION Last administered on 11/29/16 09:23; Admin Dose 10 MG; Start 11/19/16 at 17:00 Famotidine (Pepcid Iv) 20 mg DAILY IV Last administered on 12/02/16 09:43; Admin Dose 20 MG; Start 11/19/16 at 17:00 Insulin Aspart (Novolog Insulin Pen) NOVOLOG *MODERATE* ALGORI... Q4 SC Last administered on 11/30/16 16:28; Admin Dose 2 UNIT; Start 11/19/16 at 17:30 Miscellaneous Information 1 ea NOTE XX ; Start 11/19/16 at 17:30 Glucose (Glutose) 15 gm Q15M PRN PO DECREASED GLUCOSE; Start 11/19/16 at 17:30 Glucose (Glutose) 22.5 gm Q15M PRN PO DECREASED GLUCOSE; Start 11/19/16 at 17: 30 Dextrose (D50w Syringe) 25 ml Q15M PRN IV DECREASED GLUCOSE; Start 11/19/16 at 17:30 Dextrose (D50w Syringe) 50 ml Q15M PRN IV DECREASED GLUCOSE; Start 11/19/16 at 17:30 Glucagon (Glucagen) 1 mg Q15M PRN IM DECREASED GLUCOSE; Start 11/19/16 at 17:30 Glucose 15 gm 15 gm Q15M PRN BUCCAL DECREASED GLUCOSE; Start 11/19/16 at 17:30 Norepinephrine/ Dextrose (Levophed/D5W) 500 ml @ 1.875 mls/ hr TITRATE IV Last administered on 11/22/16 01:11; Admin Dose 7.5 MLS/HR; Start 11/20/16 at 19:30 Amiodarone HCl (Cordarone) 200 mg DAILY GTB Last administered on 12/01/16 08: 37; Admin Dose 200 MG; Start 11/23/16 at 09:00 Fluconazole 100 mg 100 mg DAILY NGT Last administered on 12/02/16 09:43; Admin Dose 100 MG; Start 11/25/16 at 09:00 Piperacillin Sod/ Tazobactam Sod (Zosyn 3.375gm/ 100 ml (Pmx)) 100 ml @ 100 mls /hr Q6 IVPB Last administered on 12/02/16 06:10; Admin Dose 100 MLS/HR; Start 11/24/16 at 12:00 Atorvastatin Calcium (Lipitor) 10 mg HS NGT Last administered on 12/01/16 21: 20; Admin Dose 10 MG; Start 11/24/16 at 21:00 Mupirocin (Bactroban) 1 applic BID TOP Last administered on 12/02/16 09:45; Admin Dose 1 APPLIC; Start 11/27/16 at 09:30 Insulin Glargine (Lantus) 20 unit DAILY@20 SC Last administered on 12/01/16 21 :17; Admin Dose 20 UNIT; Start 11/27/16 at 20:00 Propranolol HCl 10 mg 10 mg TID PO Last administered on 11/29/16 20:24; Admin Dose 10 MG; Start 11/27/16 at 21:00 Linezolid (Zyvox 600mg/D5W (Pmx)) 300 ml @ 300 mls/hr Q12 IVPB Last administered on 12/02/16 09:44; Admin Dose 300 MLS/HR; Start 11/28/16 at 11:00 Thiamine HCl (Vitamin B1) 100 mg DAILY IV Last administered on 11/30/16 08:50 ; Admin Dose 100 MG; Start 11/29/16 at 10:00 Folic Acid (Folic Acid) 1 mg DAILY NGT Last administered on 12/02/16 09:44; Admin Dose 1 MG; Start 11/29/16 at 10:00 Multivitamins (Multivitamin) 30 ml DAILY NGT Last administered on 12/02/16 09: 43; Admin Dose 30 ML; Start 11/29/16 at 10:30 FÁTIMA PERES MD Dec 02, 2016 12:53
[2016-12-02] MEDS: FENTAnyl (DRIP) 1000 mcg/100mL 100 ML IV SCH (13:34)
[2016-12-02] MEDS: ATORVASTATIN 10 MG TAB NGT SCH (21:32)
[2016-12-02] MEDS: INSULIN GLARGINE [LANtus] 3 ML PEN SC SCH (21:34)
[2016-12-03] VITALS (35 sets, daily range): BP systolic 103–181; BP diastolic 62–110; PULSE 47–140; RESP 16–27
[2016-12-03] MEDS: INSULIN ASPART [NOVOLOG] 3 ML PEN SC SCH ×6 (01:00→20:26)
[2016-12-03] MEDS: PIPER-TAZO 3.375 GM IV (PMX) 100 ML IVPB SCH ×4 (01:06→18:57)
[2016-12-03] MEDS: PROPOFOL 100 ML IV SCH ×3 (03:21→15:21)
[2016-12-03 05:08] LABS: ADD SCAN DIFF NO
[2016-12-03 05:12] LABS: BASOPHIL # 0.1 10^3/ul (0.0-0.1); BASOPHILS % 0.7 % (0.0-2.0); EOSINOPHILS # 0.5 10^3/ul (0.0-0.5); EOSINOPHILS % 4.5 % (0.0-7.0); HEMATOCRIT 32.7 % (42.0-52.0); HEMOGLOBIN 10.2 g/dl (14.0-18.0); LYMPHOCYTES # 2.7 10^3/ul (0.8-2.9); LYMPHOCYTES % 24.6 % (15.0-51.0); MEAN CORPUSCULAR HGB CONC 31.2 g/dl (32.0-37.0); MEAN CORPUSCULAR VOLUME 96.2 fl (82.0-101.0); MEAN PLATELET VOLUME 11.3 fl (7.4-10.4); MONOCYTE # 0.8 10^3/ul (0.3-0.9); MONOCYTES % 7.4 % (0.0-11.0); NEUTROPHIL # 6.8 10^3/ul (1.6-7.5); NEUTROPHILS % 62.3 % (39.0-77.0); PLATELET COUNT 247 10^3/UL (140-415); RED CELL DISTRIBUTION WIDTH 15.3 % (11.5-14.5); WHITE BLOOD COUNT 10.9 10^3/ul (4.8-10.8)
[2016-12-03 05:51] LABS: ALBUMIN 2.9 g/dl (3.3-4.9); ALBUMIN/GLOBULIN RATIO 0.96; BILIRUBIN,INDIRECT 0.2 mg/dl (0-1.1); BILIRUBIN,TOTAL 0.2 mg/dl (0.2-1.3); CALCIUM 8.9 mg/dl (8.4-10.2); CREATININE 1.72 mg/dl (0.61-1.24); POTASSIUM 3.7 mmol/L (3.5-5.1); TOTAL PROTEIN 5.9 g/dl (6.1-8.1)
--- NOTE | 2016-12-03 06:27 | CONS ---
Date/Time of Note Date/Time of Note DATE: 12/03/16 TIME: 06:24 Assessment/Plan Assessment/Plan Additional Assessment/Plan Ventilator setting; AC of 20, tidal volume 500, PEEP of 5, 30% FiO2. Patient currently on propofol at 20 mics per kilogram per minute. Assessment recommendations; 1. Patient admitted with cardiac arrest status post CPR with emergent coronary angiography with stenting of circumflex lesion. 2. Likely ensuing hypoxic encephalopathy. Patient has been unable to be weaned off ventilator despite numerous attempts. 3. Improving serum creatinine. 4. Bilateral pneumonia. 5. Bilateral toe gangrene, however patient has excellent peripheral pulses, patient required high-dose pressor support during initial hospital stay likely resulting in vascular injury. Continue current supportive care. The patient's family likely will opt for terminal extubation in the next 24-48 hours. Prognosis is poor. Consultation Date/Type/Reason Admit Date/Time Nov 19, 2016 at 16:09 Type of Consultation: Pulmonary/critical care Referring Provider: PIO VEGA 24 HR Interval Summary Free Text/Dictation Patient's condition remains critical. Patient has failed multiple weaning trials from ventilator due to severe agitation. Patient however has remained hemodynamically stable. General exam; middle-aged male, on ventilator via endotracheal tube. Currently sedated. No distress noted. Exam/Review of Systems Vital Signs Vitals Vital Signs Date Time Temp Pulse Resp B/P Pulse Ox O2 Delivery O2 Flow Rate FiO2 12/03/16 06:00 60 21 136/87 100 Mechanical Ventilator 12/03/16 05:59 30 12/03/16 04:00 97.9 Intake and Output 12/02/16 12/02/16 12/03/16 15:00 23:00 07:00 Intake Total 370 ml 430 ml 380 ml Output Total 800 ml 550 ml 350 ml Balance -430 ml -120 ml 30 ml Exam HEENT exam; supple neck, no JVD. No lymphadenopathy. Midline trachea. No thyromegaly. Orally intubated. Patient is edentulous. Pupils are small bilaterally. No neck masses. Chest examination; diminished but clear breath sounds. S1-S2 audible, no murmurs. Regular rhythm. Abdomen examination; soft, protuberant. Bowel sounds audible. No organomegaly. Extremity exam; trace peripheral edema. Patient is stable bilateral toe gangrene. Dorsalis pedis pulses are 2+ bilaterally. 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 Results Result Diagram: 12/03/16 0445 12/03/16 0445 Results 24 hrs Laboratory Tests Test 12/02/16 09:47 12/02/16 13:13 12/02/16 21:30 12/03/16 01:09 Bedside Glucose 101 111 82 109 Test 12/03/16 04:45 12/03/16 05:54 White Blood Count 10.9 H Red Blood Count 3.40 L Hemoglobin 10.2 L Hematocrit 32.7 L Mean Corpuscular Volume 96.2 Mean Corpuscular Hemoglobin 30.0 Mean Corpuscular Hemoglobin Concent 31.2 L Red Cell Distribution Width 15.3 H Platelet Count 247 Mean Platelet Volume 11.3 H Neutrophils % 62.3 Lymphocytes % 24.6 Monocytes % 7.4 Eosinophils % 4.5 Basophils % 0.7 Nucleated Red Blood Cells % 0.0 Neutrophils # 6.8 Lymphocytes # 2.7 Monocytes # 0.8 Eosinophils # 0.5 Basophils # 0.1 Nucleated Red Blood Cells # 0.0 Sodium Level 142 Potassium Level 3.7 Chloride Level 110 Carbon Dioxide Level 28 Anion Gap 8 Blood Urea Nitrogen 33 H Creatinine 1.72 H Glucose Level 101 Calcium Level 8.9 Total Bilirubin 0.2 Direct Bilirubin 0.00 Indirect Bilirubin 0.2 Aspartate Amino Transf (AST/SGOT) 42 Alanine Aminotransferase (ALT/SGPT) 93 H Alkaline Phosphatase 95 Total Protein 5.9 L Albumin 2.9 L Globulin 3.00 Albumin/Globulin Ratio 0.96 Bedside Glucose 81 Medications Medications Current Medications Aspirin (Halfprin) 81 mg DAILY PO Last administered on 12/02/16 09:44; Admin Dose 81 MG; Start 11/20/16 at 09:00 Ticagrelor 90 mg 90 mg BID PO Last administered on 12/02/16 21:33; Admin Dose 90 MG; Start 11/19/16 at 21:00 Propofol 100 ml @ 3.818 mls/ hr Q12H IV Last administered on 12/03/16 03:21; Admin Dose 15.272 MLS/HR; Start 11/19/16 at 16:30 Fentanyl (Sublimaze) 100 ml @ 2.5 mls/hr TITRATE IV Last administered on 13:34; Admin Dose 5 MLS/HR; Start 11/19/16 at 17:00 Ondansetron HCl (Zofran Inj) 4 mg Q6H PRN IV NAUSEA AND/OR VOMITING; Start 04/27 at 17:00 Acetaminophen (Tylenol Liquid) 650 mg Q6H PRN PO PAIN LEVEL 1-3 OR FEVER; Start 11/19/16 at 17:00 Acetaminophen (Tylenol Supp) 650 mg Q4H PRN [place] PAIN LEVEL 1-3 OR FEVER; Start 11/19/16 at 17:00 Docusate Sodium (Colace) 100 mg Q12H PRN PO CONSTIPATION; Start 11/19/16 at 17: 00 Magnesium Hydroxide (Milk Of Mag) 30 ml DAILY PRN PO CONSTIPATION Last administered on 11/29/16 09:23; Admin Dose 30 ML; Start 11/19/16 at 17:00 Bisacodyl (Dulcolax Supp) 10 mg DAILY PRN [place] CONSTIPATION Last administered on 11/29/16 09:23; Admin Dose 10 MG; Start 11/19/16 at 17:00 Famotidine (Pepcid Iv) 20 mg DAILY IV Last administered on 12/02/16 09:43; Admin Dose 20 MG; Start 11/19/16 at 17:00 Insulin Aspart (Novolog Insulin Pen) NOVOLOG *MODERATE* ALGORI... Q4 SC Last administered on 11/30/16 16:28; Admin Dose 2 UNIT; Start 11/19/16 at 17:30 Miscellaneous Information 1 ea NOTE XX ; Start 11/19/16 at 17:30 Glucose (Glutose) 15 gm Q15M PRN PO DECREASED GLUCOSE; Start 11/19/16 at 17:30 Glucose (Glutose) 22.5 gm Q15M PRN PO DECREASED GLUCOSE; Start 11/19/16 at 17: 30 Dextrose (D50w Syringe) 25 ml Q15M PRN IV DECREASED GLUCOSE; Start 11/19/16 at 17:30 Dextrose (D50w Syringe) 50 ml Q15M PRN IV DECREASED GLUCOSE; Start 11/19/16 at 17:30 Glucagon (Glucagen) 1 mg Q15M PRN IM DECREASED GLUCOSE; Start 11/19/16 at 17:30 Glucose 15 gm 15 gm Q15M PRN BUCCAL DECREASED GLUCOSE; Start 11/19/16 at 17:30 Norepinephrine/ Dextrose (Levophed/D5W) 500 ml @ 1.875 mls/ hr TITRATE IV Last administered on 11/22/16 01:11; Admin Dose 7.5 MLS/HR; Start 11/20/16 at 19:30 Amiodarone HCl (Cordarone) 200 mg DAILY GTB Last administered on 12/01/16 08: 37; Admin Dose 200 MG; Start 11/23/16 at 09:00 Fluconazole 100 mg 100 mg DAILY NGT Last administered on 12/02/16 09:43; Admin Dose 100 MG; Start 11/25/16 at 09:00 Piperacillin Sod/ Tazobactam Sod (Zosyn 3.375gm/ 100 ml (Pmx)) 100 ml @ 100 mls /hr Q6 IVPB Last administered on 12/03/16 05:54; Admin Dose 100 MLS/HR; Start 11/24/16 at 12:00 Atorvastatin Calcium (Lipitor) 10 mg HS NGT Last administered on 12/02/16 21: 32; Admin Dose 10 MG; Start 11/24/16 at 21:00 Mupirocin (Bactroban) 1 applic BID TOP Last administered on 12/02/16 21:35; Admin Dose 1 APPLIC; Start 11/27/16 at 09:30 Insulin Glargine (Lantus) 20 unit DAILY@20 SC Last administered on 12/02/16 21 :34; Admin Dose 20 UNIT; Start 11/27/16 at 20:00 Propranolol HCl 10 mg 10 mg TID PO Last administered on 11/29/16 20:24; Admin Dose 10 MG; Start 11/27/16 at 21:00 Linezolid (Zyvox 600mg/D5W (Pmx)) 300 ml @ 300 mls/hr Q12 IVPB Last administered on 12/02/16 21:31; Admin Dose 300 MLS/HR; Start 11/28/16 at 11:00 Thiamine HCl (Vitamin B1) 100 mg DAILY IV Last administered on 12/02/16 09:15 ; Admin Dose 100 MG; Start 11/29/16 at 10:00 Folic Acid (Folic Acid) 1 mg DAILY NGT Last administered on 12/02/16 09:44; Admin Dose 1 MG; Start 11/29/16 at 10:00 Multivitamins (Multivitamin) 30 ml DAILY NGT Last administered on 12/02/16t 09: 43; Admin Dose 30 ML; Start 11/29/16 at 10:30 ELEONORA LEWIS Dec 03, 2016 06:27
[2016-12-03] MEDS: AMIODARONE 200 MG TAB GTB SCH (08:01)
[2016-12-03] MEDS: PROPRANOLOL 10 MG TAB PO SCH ×3 (09:00→20:26)
[2016-12-03] MEDS: FENTAnyl (DRIP) 1000 mcg/100mL 100 ML IV SCH (09:09)
--- NOTE | 2016-12-03 09:15 | PN ---
Date/Time of Note Date/Time of Note DATE: 12/03/16 TIME: 09:07 Assessment/Plan VTE Prophylaxis VTE Prophylaxis Intervention: SCD's Lines/Catheters IV Catheter Type (from Nrs): Saline Lock Urinary Cath still in place: Yes Reason Cath still needed: terminal illness/intractable pain Assessment/Plan Assessment/Plan This is an unfortunate 56 year old male with multiple medical problems who sustained a STEMI and failed CPAP trial on 12/01. 1. ST elevation myocardial infarction with a hemodynamic instability, status post ventricular tachycardia, cardioverted status post angiogram with PCI to the circumflex. On Fentanyl and Propofol for sedation. Hemodynamically stable (mildly bradycardic) but still encephalopathic when on sedation vacation, CPAP failed on 12/01. CT head showing chronic findings only confirmed on MRI on 11/30. Dr. Simeon following, on Brilinta and ASA. On po Amio. 2. Acute respiratory failure secondary to cardiogenic shock and ST elevation myocardial infarction. Also with history of chronic obstructive pulmonary disease Intubated and sedated on Fentanyl and Propofol; failed CPAP trial, lethargic and generally unresponsive. When he wakes up, he becomes tachypneic and unable to tolerate weaning. CXR with CHF exacerbation, OFF IVF now and prn Lasix doses. On Zosyn with Klebsiella and MSSA on sputum cx, and also on Zyvox. WBC slightly decreased to about 10. Pulmonary for Vent management. On tube feedings 3. Acute kidney injury on probable chronic kidney disease, likely secondary to acute tubular necrosis; baseline creatinine is about 1.48 Monitor Renal function still improving, off IVF and diuretics prn . Repleting electrolytes prn, UOP still OK; sodium is improved today. Nephrology, Dr Welch following. 4. Encephalopathy with reported hx of drug use (cocaine, bath salts..) and heavy alcohol use. sedation vacation today, CT head results noted with findings of chronic infarcts (per Brother, patient had hx of multiple CVAs), ? embolic in nature, given PAF, will need anticoagulation, currently on dual antiplatelets already .. will discuss with Cardiology Ammonia wnl. MRI confirming multiple chronic infarcts, no masses or signs of MS Continue thiamine IV, Folic Acid and MVI 5. Acute ischemic changes b/l toes, now seems better perfused but likely embolic events with angio. Pulses present right greater than left. 6. Shock Liver, with elevated ALT and coagulopathy currently. Resolving. Avoiding hepatotoxic agents. 7. Diabetes mellitus. His blood sugars are fairly stable. A1c 7.1 Continue sliding scale insulin and Lantus to 20 units, continue SSI while on TF 8. Thrush: Continue Diflucan 9. Obstructive sleep apnea on CPAP at night as outpatient. 10. Tobacco use. Hopefully the patient will quit after this. Nicotine patch today. Prophylaxis. Pepcid for GI ppx and SCDs. DISPOSITION: Guarded prognosis, failed CPAP trial on 12/01 and will attempt today. Brother Jv was tracked down, he lives in [facility] and confirmed patient has been chronically ill and also active drug abuser including alcoholic, bath salts, ? speed (also hx of dealing cocaine, bath salts?) . Based on his current condition, he has not tolerated weaning, and will likely fail CPAP trial again. Discussed condition and current prognosis with Brother Jv, and per brother patient to be DNR. Per Antonella BAUTISTA, possible terminal extubation on Sunday is not improved. Will discuss with team. Subjective 24 Hr Interval Summary Free Text/Dictation No events overnight. Remains sedated on the vent. Subjective hx not possible: pt critical status Exam/Review of Systems Vital Signs Vitals Vital Signs Date Time Temp Pulse Resp B/P Pulse Ox O2 Delivery O2 Flow Rate FiO2 12/03/16 08:00 56 12/03/16 06:00 21 136/87 100 Mechanical Ventilator 12/03/16 05:59 30 12/03/16 04:00 97.9 Intake and Output 12/02/16 12/02/16 12/03/16 15:00 23:00 07:00 Intake Total 370 ml 921.088 ml 718.000 ml Output Total 800 ml 550 ml 350 ml Balance -430 ml 371.088 ml 368.000 ml Exam Constitutional: non-verbal Head: normocephalic ENMT: nl external ears & nose Respiratory: clear to auscultation Cardiovascular: regular rate and rhythm Gastrointestinal: soft Extremities: edema Results Result Diagram: 12/03/16 0445 12/03/16 0445 Results 24 hrs Laboratory Tests Test 12/02/16 09:47 12/02/16 13:13 12/02/16 21:30 12/03/16 01:09 Bedside Glucose 101 111 82 109 Test 12/03/16 04:45 12/03/16 05:54 White Blood Count 10.9 H Red Blood Count 3.40 L Hemoglobin 10.2 L Hematocrit 32.7 L Mean Corpuscular Volume 96.2 Mean Corpuscular Hemoglobin 30.0 Mean Corpuscular Hemoglobin Concent 31.2 L Red Cell Distribution Width 15.3 H Platelet Count 247 Mean Platelet Volume 11.3 H Neutrophils % 62.3 Lymphocytes % 24.6 Monocytes % 7.4 Eosinophils % 4.5 Basophils % 0.7 Nucleated Red Blood Cells % 0.0 Neutrophils # 6.8 Lymphocytes # 2.7 Monocytes # 0.8 Eosinophils # 0.5 Basophils # 0.1 Nucleated Red Blood Cells # 0.0 Sodium Level 142 Potassium Level 3.7 Chloride Level 110 Carbon Dioxide Level 28 Anion Gap 8 Blood Urea Nitrogen 33 H Creatinine 1.72 H Glucose Level 101 Calcium Level 8.9 Total Bilirubin 0.2 Direct Bilirubin 0.00 Indirect Bilirubin 0.2 Aspartate Amino Transf (AST/SGOT) 42 Alanine Aminotransferase (ALT/SGPT) 93 H Alkaline Phosphatase 95 Total Protein 5.9 L Albumin 2.9 L Globulin 3.00 Albumin/Globulin Ratio 0.96 Bedside Glucose 81 Medications Medications Current Medications Aspirin (Halfprin) 81 mg DAILY PO Last administered on 12/02/16 09:44; Admin Dose 81 MG; Start 11/20/16 at 09:00 Ticagrelor 90 mg 90 mg BID PO Last administered on 12/02/16 21:33; Admin Dose 90 MG; Start 11/19/16 at 21:00 Propofol 100 ml @ 3.818 mls/ hr Q12H IV Last administered on 12/03/16 03:21; Admin Dose 15.272 MLS/HR; Start 11/19/16 at 16:30 Fentanyl (Sublimaze) 100 ml @ 2.5 mls/hr TITRATE IV Last administered on 13:34; Admin Dose 5 MLS/HR; Start 11/19/16 at 17:00 Ondansetron HCl (Zofran Inj) 4 mg Q6H PRN IV NAUSEA AND/OR VOMITING; Start 04/27 at 17:00 Acetaminophen (Tylenol Liquid) 650 mg Q6H PRN PO PAIN LEVEL 1-3 OR FEVER; Start 11/19/16 at 17:00 Acetaminophen (Tylenol Supp) 650 mg Q4H PRN [place] PAIN LEVEL 1-3 OR FEVER; Start 11/19/16 at 17:00 Docusate Sodium (Colace) 100 mg Q12H PRN PO CONSTIPATION; Start 11/19/16 at 17: 00 Magnesium Hydroxide (Milk Of Mag) 30 ml DAILY PRN PO CONSTIPATION Last administered on 11/29/16 09:23; Admin Dose 30 ML; Start 11/19/16 at 17:00 Bisacodyl (Dulcolax Supp) 10 mg DAILY PRN [place] CONSTIPATION Last administered on 11/29/16 09:23; Admin Dose 10 MG; Start 11/19/16 at 17:00 Famotidine (Pepcid Iv) 20 mg DAILY IV Last administered on 12/02/16 09:43; Admin Dose 20 MG; Start 11/19/16 at 17:00 Insulin Aspart (Novolog Insulin Pen) NOVOLOG *MODERATE* ALGORI... Q4 SC Last administered on 11/30/16 16:28; Admin Dose 2 UNIT; Start 11/19/16 at 17:30 Miscellaneous Information 1 ea NOTE XX ; Start 11/19/16 at 17:30 Glucose (Glutose) 15 gm Q15M PRN PO DECREASED GLUCOSE; Start 11/19/16 at 17:30 Glucose (Glutose) 22.5 gm Q15M PRN PO DECREASED GLUCOSE; Start 11/19/16 at 17: 30 Dextrose (D50w Syringe) 25 ml Q15M PRN IV DECREASED GLUCOSE; Start 11/19/16 at 17:30 Dextrose (D50w Syringe) 50 ml Q15M PRN IV DECREASED GLUCOSE; Start 11/19/16 at 17:30 Glucagon (Glucagen) 1 mg Q15M PRN IM DECREASED GLUCOSE; Start 11/19/16 at 17:30 Glucose 15 gm 15 gm Q15M PRN BUCCAL DECREASED GLUCOSE; Start 11/19/16 at 17:30 Norepinephrine/ Dextrose (Levophed/D5W) 500 ml @ 1.875 mls/ hr TITRATE IV Last administered on 11/22/16 01:11; Admin Dose 7.5 MLS/HR; Start 11/20/16 at 19:30 Amiodarone HCl (Cordarone) 200 mg DAILY GTB Last administered on 12/01/16 08: 37; Admin Dose 200 MG; Start 11/23/16 at 09:00 Fluconazole 100 mg 100 mg DAILY NGT Last administered on 12/02/16 09:43; Admin Dose 100 MG; Start 11/25/16 at 09:00 Piperacillin Sod/ Tazobactam Sod (Zosyn 3.375gm/ 100 ml (Pmx)) 100 ml @ 100 mls /hr Q6 IVPB Last administered on 12/03/16 05:54; Admin Dose 100 MLS/HR; Start 11/24/16 at 12:00 Atorvastatin Calcium (Lipitor) 10 mg HS NGT Last administered on 12/02/16 21: 32; Admin Dose 10 MG; Start 11/24/16 at 21:00 Mupirocin (Bactroban) 1 applic BID TOP Last administered on 12/02/16 21:35; Admin Dose 1 APPLIC; Start 11/27/16 at 09:30 Insulin Glargine (Lantus) 20 unit DAILY@20 SC Last administered on 12/02/16 21 :34; Admin Dose 20 UNIT; Start 11/27/16 at 20:00 Propranolol HCl 10 mg 10 mg TID PO Last administered on 11/29/16 20:24; Admin Dose 10 MG; Start 11/27/16 at 21:00 Linezolid (Zyvox 600mg/D5W (Pmx)) 300 ml @ 300 mls/hr Q12 IVPB Last administered on 12/02/16 21:31; Admin Dose 300 MLS/HR; Start 11/28/16 at 11:00 Thiamine HCl (Vitamin B1) 100 mg DAILY IV Last administered on 12/02/16 09:15 ; Admin Dose 100 MG; Start 11/29/16 at 10:00 Folic Acid (Folic Acid) 1 mg DAILY NGT Last administered on 12/02/16 09:44; Admin Dose 1 MG; Start 11/29/16 at 10:00 Multivitamins (Multivitamin) 30 ml DAILY NGT Last administered on 12/02/16 09: 43; Admin Dose 30 ML; Start 11/29/16 at 10:30 KYM BLUE MD Dec 03, 2016 09:15
[2016-12-03] MEDS: ASPIRIN (EC) 81 MG TAB PO SCH (09:54)
[2016-12-03] MEDS: FAMOTIDINE 20 MG INJ IV SCH (09:55)
[2016-12-03] MEDS: TICAGRELOR 90 MG TABLET PO SCH ×2 (09:55→20:32)
[2016-12-03] MEDS: MULTIVITAMINS 30 ML CUP NGT SCH (09:55)
[2016-12-03] MEDS: FLUCONAZOLE 100 MG TAB NGT SCH (09:55)
[2016-12-03] MEDS: LINEZOLID 600 MG/D5W (PMX) 300 ML IVPB SCH ×2 (09:55→20:17)
[2016-12-03] MEDS: FOLIC ACID 1 MG TAB NGT SCH (09:55)
[2016-12-03] MEDS: MUPIROCIN 2% 22 GM OINT TOP SCH ×2 (09:57→20:27)
[2016-12-03] MEDS: THIAMINE 200 MG INJ IV SCH (10:00)
--- NOTE | 2016-12-03 13:30 | CONS ---
Date/Time of Note Date/Time of Note DATE: 12/03/16 TIME: 13:19 Assessment/Plan Assessment/Plan Additional Assessment/Plan DNR - Acute kidney injury on possible previous chronic kidney disease with last creatinine known about 1.48 secondary to acute tubular necrosis from ischemic acute tubular necrosis from cardiogenic shock.- Improving with good urine output - Hematuria-coffee ground urine noted - Flush FC with NS 200 CC X2, 2 HRS Apart - cont to monitor - Acute respiratory failure from cardiogenic shock, currently intubated on ventilator- failed weaning trial due to pulmonary congestion - Acute non-ST elevation myocardial infarction, s/p v tach arrest s/p pci of RCA, possible staged procedure to LCx required s/p IABP, now off - Leukocytosis- getting better - History of possible chronic kidney disease secondary to diabetic nephropathy , unknown stage. - History of type 2 diabetes mellitus. - History of hypertension. Plan: remains intubated, ventilator care as per pulmonary Plan for extubation tomorrow Creatinine 1.7, coffee ground urine noted with 1.8L/24 HR urine output, h/h stable on Free water flush CT head with chronic multiple infarcts and ? hepatic, toxic encephalopathy on Brilinat Post cath will continue to follow up on patient DNR code status no indication for renal replacement therapy at this time dw Dr Rizwan Welch/staff Consultation Date/Type/Reason Admit Date/Time Nov 19, 2016 at 16:09 Initial Consult Date Type of Consultation: NEPHROLOGY Referring Provider: PIO VEGA 24 HR Interval Summary Free Text/Dictation DNR Code status, remains intubated, agitated at times., afebrile,on Propofol ML15,2 ml//HR, Fentanyl 4ml/hr . Plan for extubation tomorrow. Creatinine 1.7, coffee ground urine noted with UO 1.8 L/24 HR dw staff Subjective hx not possible: pt critical Constitutional: requiring IVF, requiring O2 Exam/Review of Systems Vital Signs Vitals Vital Signs Date Time Temp Pulse Resp B/P Pulse Ox O2 Delivery O2 Flow Rate FiO2 12/03/16 08:00 56 12/03/16 06:00 21 136/87 100 Mechanical Ventilator 12/03/16 05:59 30 12/03/16 04:00 97.9 Intake and Output 12/02/16 12/02/16 12/03/16 14:59 22:59 06:59 Intake Total 370 ml 600.816 ml 1078.272 ml Output Total 800 ml 600 ml 400 ml Balance -430 ml 0.816 ml 678.272 ml Exam Constitutional: other (no acute distress , remains intubated ) Psych: other (unable eo assess) Neck: other ( Et tube intact), supple Respiratory: crackles/rales (Bilateral crackles at bases), diminished breath sounds Cardiovascular: nl pulses Gastrointestinal: other (morbidly obese), soft Musculoskeletal: nl extremities to inspection Extremities: edema (pitting edema+ 1), other (1 to 2+ pitting edema. No clubbing, cyanosis. diminshed pulses due to edema) Neurological: lethargic Skin: other Lymph: other (1 to 2+) Results Result Diagram: 12/03/165 12/03/165 Results 24 hrs Laboratory Tests Test 12/02/16 21:30 12/03/16 01:09 12/03/16 04:45 12/03/16 05:54 Bedside Glucose 82 109 81 White Blood Count 10.9 H Red Blood Count 3.40 L Hemoglobin 10.2 L Hematocrit 32.7 L Mean Corpuscular Volume 96.2 Mean Corpuscular Hemoglobin 30.0 Mean Corpuscular Hemoglobin Concent 31.2 L Red Cell Distribution Width 15.3 H Platelet Count 247 Mean Platelet Volume 11.3 H Neutrophils % 62.3 Lymphocytes % 24.6 Monocytes % 7.4 Eosinophils % 4.5 Basophils % 0.7 Nucleated Red Blood Cells % 0.0 Neutrophils # 6.8 Lymphocytes # 2.7 Monocytes # 0.8 Eosinophils # 0.5 Basophils # 0.1 Nucleated Red Blood Cells # 0.0 Sodium Level 142 Potassium Level 3.7 Chloride Level 110 Carbon Dioxide Level 28 Anion Gap 8 Blood Urea Nitrogen 33 H Creatinine 1.72 H Glucose Level 101 Calcium Level 8.9 Total Bilirubin 0.2 Direct Bilirubin 0.00 Indirect Bilirubin 0.2 Aspartate Amino Transf (AST/SGOT) 42 Alanine Aminotransferase (ALT/SGPT) 93 H Alkaline Phosphatase 95 Total Protein 5.9 L Albumin 2.9 L Globulin 3.00 Albumin/Globulin Ratio 0.96 Medications Medications Current Medications Aspirin (Halfprin) 81 mg DAILY PO Last administered on 12/03/16t 09:54; Admin Dose 81 MG; Start 11/20/16 at 09:00 Ticagrelor 90 mg 90 mg BID PO Last administered on 12/03/16 09:55; Admin Dose 90 MG; Start 11/19/16 at 21:00 Propofol 100 ml @ 3.818 mls/ hr Q12H IV Last administered on 12/03/16 03:21; Admin Dose 15.272 MLS/HR; Start 11/19/16 at 16:30 Fentanyl (Sublimaze) 100 ml @ 2.5 mls/hr TITRATE IV Last administered on 09:09; Admin Dose 4 MLS/HR; Start 11/19/16 at 17:00 Ondansetron HCl (Zofran Inj) 4 mg Q6H PRN IV NAUSEA AND/OR VOMITING; Start 04/27 at 17:00 Acetaminophen (Tylenol Liquid) 650 mg Q6H PRN PO PAIN LEVEL 1-3 OR FEVER; Start 11/19/16 at 17:00 Acetaminophen (Tylenol Supp) 650 mg Q4H PRN [place] PAIN LEVEL 1-3 OR FEVER; Start 11/19/16 at 17:00 Docusate Sodium (Colace) 100 mg Q12H PRN PO CONSTIPATION; Start 11/19/16 at 17: 00 Magnesium Hydroxide (Milk Of Mag) 30 ml DAILY PRN PO CONSTIPATION Last administered on 11/29/16 09:23; Admin Dose 30 ML; Start 11/19/16 at 17:00 Bisacodyl (Dulcolax Supp) 10 mg DAILY PRN [place] CONSTIPATION Last administered on 11/29/16 09:23; Admin Dose 10 MG; Start 11/19/16 at 17:00 Famotidine (Pepcid Iv) 20 mg DAILY IV Last administered on 12/03/16 09:55; Admin Dose 20 MG; Start 11/19/16 at 17:00 Insulin Aspart (Novolog Insulin Pen) NOVOLOG *MODERATE* ALGORI... Q4 SC Last administered on 11/30/16 16:28; Admin Dose 2 UNIT; Start 11/19/16 at 17:30 Miscellaneous Information 1 ea NOTE XX ; Start 11/19/16 at 17:30 Glucose (Glutose) 15 gm Q15M PRN PO DECREASED GLUCOSE; Start 11/19/16 at 17:30 Glucose (Glutose) 22.5 gm Q15M PRN PO DECREASED GLUCOSE; Start 11/19/16 at 17: 30 Dextrose (D50w Syringe) 25 ml Q15M PRN IV DECREASED GLUCOSE; Start 11/19/16 at 17:30 Dextrose (D50w Syringe) 50 ml Q15M PRN IV DECREASED GLUCOSE; Start 11/19/16 at 17:30 Glucagon (Glucagen) 1 mg Q15M PRN IM DECREASED GLUCOSE; Start 11/19/16 at 17:30 Glucose 15 gm 15 gm Q15M PRN BUCCAL DECREASED GLUCOSE; Start 11/19/16 at 17:30 Norepinephrine/ Dextrose (Levophed/D5W) 500 ml @ 1.875 mls/ hr TITRATE IV Last administered on 11/22/16 01:11; Admin Dose 7.5 MLS/HR; Start 11/20/16 at 19:30 Amiodarone HCl (Cordarone) 200 mg DAILY GTB Last administered on 12/01/16 08: 37; Admin Dose 200 MG; Start 11/23/16 at 09:00 Fluconazole 100 mg 100 mg DAILY NGT Last administered on 12/03/16 09:55; Admin Dose 100 MG; Start 11/25/16 at 09:00 Piperacillin Sod/ Tazobactam Sod (Zosyn 3.375gm/ 100 ml (Pmx)) 100 ml @ 100 mls /hr Q6 IVPB Last administered on 12/03/16 05:54; Admin Dose 100 MLS/HR; Start 11/24/16 at 12:00 Atorvastatin Calcium (Lipitor) 10 mg HS NGT Last administered on 12/02/16 21: 32; Admin Dose 10 MG; Start 11/24/16 at 21:00 Mupirocin (Bactroban) 1 applic BID TOP Last administered on 12/03/16 09:57; Admin Dose 1 APPLIC; Start 11/27/16 at 09:30 Insulin Glargine (Lantus) 20 unit DAILY@20 SC Last administered on 12/02/16 21 :34; Admin Dose 20 UNIT; Start 11/27/16 at 20:00 Propranolol HCl 10 mg 10 mg TID PO Last administered on 11/29/16 20:24; Admin Dose 10 MG; Start 11/27/16 at 21:00 Linezolid (Zyvox 600mg/D5W (Pmx)) 300 ml @ 300 mls/hr Q12 IVPB Last administered on 12/03/16 09:55; Admin Dose 300 MLS/HR; Start 11/28/16 at 11:00 Thiamine HCl (Vitamin B1) 100 mg DAILY IV Last administered on 12/02/16 09:15 ; Admin Dose 100 MG; Start 11/29/16 at 10:00 Folic Acid (Folic Acid) 1 mg DAILY NGT Last administered on 12/03/16 09:55; Admin Dose 1 MG; Start 11/29/16 at 10:00 Multivitamins (Multivitamin) 30 ml DAILY NGT Last administered on 12/03/16 09: 55; Admin Dose 30 ML; Start 11/29/16 at 10:30 GEENA ROSADO Dec 03, 2016 13:29
[2016-12-03] MEDS: INSULIN GLARGINE [LANtus] 3 ML PEN SC SCH (20:00)
[2016-12-03] MEDS: ATORVASTATIN 10 MG TAB NGT SCH (20:26)
[2016-12-04] VITALS (35 sets, daily range): BP systolic 106–168; BP diastolic 59–107; PULSE 48–106; RESP 13–26
[2016-12-04] MEDS ORDERED: hydrALAzine 20 MG INJ IV PRN
[2016-12-04] MEDS: PIPER-TAZO 3.375 GM IV (PMX) 100 ML IVPB SCH ×4 (00:50→17:25)
[2016-12-04] MEDS: INSULIN ASPART [NOVOLOG] 3 ML PEN SC SCH ×6 (00:51→20:48)
[2016-12-04] MEDS: PROPOFOL 100 ML IV SCH ×3 (00:53→18:08)
[2016-12-04] MEDS: FENTAnyl (DRIP) 1000 mcg/100mL 100 ML IV SCH (04:03)
[2016-12-04 04:49] LABS: ADD SCAN DIFF NO
[2016-12-04 04:53] LABS: BASOPHIL # 0.1 10^3/ul (0.0-0.1); BASOPHILS % 1.1 % (0.0-2.0); EOSINOPHILS # 0.6 10^3/ul (0.0-0.5); EOSINOPHILS % 4.6 % (0.0-7.0); HEMOGLOBIN 10.6 g/dl (14.0-18.0); LYMPHOCYTES # 2.4 10^3/ul (0.8-2.9); LYMPHOCYTES % 19.5 % (15.0-51.0); MEAN CORPUSCULAR HEMOGLOBIN 29.9 pg (29.0-33.0); MEAN CORPUSCULAR HGB CONC 31.2 g/dl (32.0-37.0); MEAN CORPUSCULAR VOLUME 95.8 fl (82.0-101.0); MEAN PLATELET VOLUME 11.2 fl (7.4-10.4); NEUTROPHILS % 66.4 % (39.0-77.0); PLATELET COUNT 288 10^3/UL (140-415); RED BLOOD COUNT 3.55 10^6/ul (4.70-6.10); RED CELL DISTRIBUTION WIDTH 15.4 % (11.5-14.5); WHITE BLOOD COUNT 12.1 10^3/ul (4.8-10.8)
[2016-12-04 05:16] LABS: ALBUMIN 3.1 g/dl (3.3-4.9); BILIRUBIN,INDIRECT 0.3 mg/dl (0-1.1); BILIRUBIN,TOTAL 0.3 mg/dl (0.2-1.3); TOTAL PROTEIN 6.3 g/dl (6.1-8.1)
[2016-12-04 05:19] LABS: ALBUMIN 2.9 g/dl (3.3-4.9); BILIRUBIN,INDIRECT 0.2 mg/dl (0-1.1); BILIRUBIN,TOTAL 0.2 mg/dl (0.2-1.3); CALCIUM 9.5 mg/dl (8.4-10.2); CREATININE 1.47 mg/dl (0.61-1.24); TOTAL PROTEIN 5.8 g/dl (6.1-8.1)
[2016-12-04] MEDS: MULTIVITAMINS 30 ML CUP NGT SCH (08:47)
[2016-12-04] MEDS: PROPRANOLOL 10 MG TAB PO SCH ×4 (08:47→20:48)
[2016-12-04] MEDS: AMIODARONE 200 MG TAB GTB SCH ×2 (08:47→20:42)
[2016-12-04] MEDS: TICAGRELOR 90 MG TABLET PO SCH ×2 (08:48→20:45)
[2016-12-04] MEDS: FOLIC ACID 1 MG TAB NGT SCH (08:52)
[2016-12-04] MEDS: FLUCONAZOLE 100 MG TAB NGT SCH (08:52)
[2016-12-04] MEDS: FAMOTIDINE 20 MG INJ IV SCH (08:52)
[2016-12-04] MEDS: ASPIRIN (EC) 81 MG TAB PO SCH (08:53)
[2016-12-04] MEDS: LINEZOLID 600 MG/D5W (PMX) 300 ML IVPB SCH ×2 (08:53→20:41)
[2016-12-04] MEDS: MUPIROCIN 2% 22 GM OINT TOP SCH ×2 (08:58→20:41)
[2016-12-04] MEDS: THIAMINE 200 MG INJ IV SCH (09:10)
--- NOTE | 2016-12-04 10:38 | CONS ---
Date/Time of Note Date/Time of Note DATE: 12/04/16 TIME: 10:34 Assessment/Plan Assessment/Plan Additional Assessment/Plan Ventilator setting; AC of 20, tidal volume 500, PEEP of 5, 30% FiO2. Patient currently on propofol at 10 mics per kilogram per minute. Assessment recommendations; 1. Patient admitted with cardiac arrest status post CPR with resulting severe anoxic brain injury. Patient unable to be weaned off ventilator due to that. 2. Status post coronary angiography with stenting of circumflex lesion. 3. Acute renal insufficiency with continually improving serum creatinine. 4. Bilateral pneumonia. 5. History of hypertension and diabetes. Continue current treatment. Hold sedation again. Obtain a follow-up chest x- ray. Weaning from ventilator with depend upon adequate mental status recovery. Prognosis appears to be poor at this point. Consultation Date/Type/Reason Admit Date/Time Nov 19, 2016 at 16:09 Type of Consultation: Pulmonary/critical care Referring Provider: PIO VEGA 24 HR Interval Summary Free Text/Dictation Patient condition remains critical. Patient has been on able to be weaned off from ventilator due to poor mental status. Patient becomes agitated off sedation. Patient however has remained hemodynamically stable. General exam; middle-aged male, orally intubated, sedated. Currently in no distress. Exam/Review of Systems Vital Signs Vitals Vital Signs Date Time Temp Pulse Resp B/P Pulse Ox O2 Delivery O2 Flow Rate FiO2 12/04/16 09:00 57 20 113/70 100 Mechanical Ventilator 12/04/16 08:00 98.5 12/04/16 05:00 30 Intake and Output 12/03/16 12/03/16 12/04/16 14:59 22:59 06:59 Intake Total 900.89 ml 948.626 ml 587.646 ml Output Total 480 ml 440 ml 400 ml Balance 420.89 ml 508.626 ml 187.646 ml Exam HEENT exam; supple neck, no JVD. No lymphadenopathy. Midline trachea. No thyromegaly. Patient is edentulous. Orally intubated. Pupils are small bilaterally. Chest examined; diminished but clear breath sound. S1-S2 audible, no murmurs. Regular rhythm. Abdomen examination; soft, protuberant. No organomegaly. Bowel sounds audible. Extremity exam; trace generalized edema. Pulses 1+ bilaterally. Patient has stable gangrene involving toes bilaterally. Dorsalis pedis pulses are 2+ bilaterally. [employer] examination; patient is sedated. Results Result Diagram: 12/04/16 0420 12/04/16 0420 Results 24 hrs Laboratory Tests Test 12/03/16 18:38 12/03/16 20:11 12/03/16 20:38 12/03/16 21:15 Bedside Glucose 89 66 L 75 166 Test 12/03/16 21:41 12/04/16 00:51 12/04/16 04:20 12/04/16 05:38 Bedside Glucose 145 102 112 White Blood Count 12.1 H Red Blood Count 3.55 L Hemoglobin 10.6 L Hematocrit 34.0 L Mean Corpuscular Volume 95.8 Mean Corpuscular Hemoglobin 29.9 Mean Corpuscular Hemoglobin Concent 31.2 L Red Cell Distribution Width 15.4 H Platelet Count 288 Mean Platelet Volume 11.2 H Neutrophils % 66.4 Lymphocytes % 19.5 Monocytes % 8.0 Eosinophils % 4.6 Basophils % 1.1 Nucleated Red Blood Cells % 0.0 Neutrophils # 8.0 H Lymphocytes # 2.4 Monocytes # 1.0 H Eosinophils # 0.6 H Basophils # 0.1 Nucleated Red Blood Cells # 0.0 Sodium Level 138 Potassium Level 4.0 Chloride Level 107 Carbon Dioxide Level 25 Anion Gap 10 Blood Urea Nitrogen 29 H Creatinine 1.47 H Glucose Level 122 Calcium Level 9.5 Total Bilirubin 0.2 Direct Bilirubin 0.00 Indirect Bilirubin 0.2 Aspartate Amino Transf (AST/SGOT) 41 Alanine Aminotransferase (ALT/SGPT) 93 H Alkaline Phosphatase 111 Total Protein 5.8 L Albumin 2.9 L Globulin 2.90 Albumin/Globulin Ratio 1.00 Test 12/04/16 08:45 Bedside Glucose 111 Medications Medications Current Medications Aspirin (Halfprin) 81 mg DAILY PO Last administered on 12/04/16 08:53; Admin Dose 81 MG; Start 11/20/16 at 09:00 Ticagrelor 90 mg 90 mg BID PO Last administered on 12/04/16 08:48; Admin Dose 90 MG; Start 11/19/16 at 21:00 Propofol 100 ml @ 3.818 mls/ hr Q12H IV Last administered on 12/04/16 08:53; Admin Dose 7.636 MLS/HR; Start 11/19/16 at 16:30 Fentanyl (Sublimaze) 100 ml @ 2.5 mls/hr TITRATE IV Last administered on 04:03; Admin Dose 6 MLS/HR; Start 11/19/16 at 17:00 Ondansetron HCl (Zofran Inj) 4 mg Q6H PRN IV NAUSEA AND/OR VOMITING; Start 04/27 at 17:00 Acetaminophen (Tylenol Liquid) 650 mg Q6H PRN PO PAIN LEVEL 1-3 OR FEVER; Start 11/19/16 at 17:00 Acetaminophen (Tylenol Supp) 650 mg Q4H PRN [place] PAIN LEVEL 1-3 OR FEVER; Start 11/19/16 at 17:00 Docusate Sodium (Colace) 100 mg Q12H PRN PO CONSTIPATION; Start 11/19/16 at 17: 00 Magnesium Hydroxide (Milk Of Mag) 30 ml DAILY PRN PO CONSTIPATION Last administered on 11/29/16 09:23; Admin Dose 30 ML; Start 11/19/16 at 17:00 Bisacodyl (Dulcolax Supp) 10 mg DAILY PRN [place] CONSTIPATION Last administered on 11/29/16 09:23; Admin Dose 10 MG; Start 11/19/16 at 17:00 Famotidine (Pepcid Iv) 20 mg DAILY IV Last administered on 12/04/16 08:52; Admin Dose 20 MG; Start 11/19/16 at 17:00 Insulin Aspart (Novolog Insulin Pen) NOVOLOG *MODERATE* ALGORI... Q4 SC Last administered on 11/30/16 16:28; Admin Dose 2 UNIT; Start 11/19/16 at 17:30 Miscellaneous Information 1 ea NOTE XX ; Start 11/19/16 at 17:30 Glucose (Glutose) 15 gm Q15M PRN PO DECREASED GLUCOSE; Start 11/19/16 at 17:30 Glucose (Glutose) 22.5 gm Q15M PRN PO DECREASED GLUCOSE; Start 11/19/16 at 17: 30 Dextrose (D50w Syringe) 25 ml Q15M PRN IV DECREASED GLUCOSE Last administered on 12/03/16 20:15; Admin Dose 25 ML; Start 11/19/16 at 17:30 Dextrose (D50w Syringe) 50 ml Q15M PRN IV DECREASED GLUCOSE; Start 11/19/16 at 17:30 Glucagon (Glucagen) 1 mg Q15M PRN IM DECREASED GLUCOSE; Start 11/19/16 at 17:30 Glucose 15 gm 15 gm Q15M PRN BUCCAL DECREASED GLUCOSE; Start 11/19/16 at 17:30 Norepinephrine/ Dextrose (Levophed/D5W) 500 ml @ 1.875 mls/ hr TITRATE IV Last administered on 11/22/16 01:11; Admin Dose 7.5 MLS/HR; Start 11/20/16 at 19:30 Amiodarone HCl (Cordarone) 200 mg DAILY GTB Last administered on 12/04/16 08: 47; Admin Dose 200 MG; Start 11/23/16 at 09:00 Fluconazole 100 mg 100 mg DAILY NGT Last administered on 12/04/16 08:52; Admin Dose 100 MG; Start 11/25/16 at 09:00 Piperacillin Sod/ Tazobactam Sod (Zosyn 3.375gm/ 100 ml (Pmx)) 100 ml @ 100 mls /hr Q6 IVPB Last administered on 12/04/16 05:39; Admin Dose 100 MLS/HR; Start 11/24/16 at 12:00 Atorvastatin Calcium (Lipitor) 10 mg HS NGT Last administered on 12/03/16 20: 26; Admin Dose 10 MG; Start 11/24/16 at 21:00 Mupirocin (Bactroban) 1 applic BID TOP Last administered on 12/04/16 08:58; Admin Dose 1 APPLIC; Start 11/27/16 at 09:30 Insulin Glargine (Lantus) 20 unit DAILY@20 SC Last administered on 12/02/16 21 :34; Admin Dose 20 UNIT; Start 11/27/16 at 20:00 Propranolol HCl 10 mg 10 mg TID PO Last administered on 11/29/16 20:24; Admin Dose 10 MG; Start 11/27/16 at 21:00 Linezolid (Zyvox 600mg/D5W (Pmx)) 300 ml @ 300 mls/hr Q12 IVPB Last administered on 12/04/16 08:53; Admin Dose 300 MLS/HR; Start 11/28/16 at 11:00 Thiamine HCl (Vitamin B1) 100 mg DAILY IV Last administered on 12/04/16 09:10 ; Admin Dose 100 MG; Start 11/29/16 at 10:00 Folic Acid (Folic Acid) 1 mg DAILY NGT Last administered on 12/04/16 08:52; Admin Dose 1 MG; Start 11/29/16 at 10:00 Multivitamins (Multivitamin) 30 ml DAILY NGT Last administered on 12/04/16 08: 47; Admin Dose 30 ML; Start 11/29/16 at 10:30 Hydralazine HCl (Apresoline) 10 mg Q2 PRN IV For SBP >170; Start 12/04/16 at 00 :00 ELEONORA LEWIS Dec 04, 2016 10:37
--- NOTE | 2016-12-04 11:22 | PN ---
Date/Time of Note Date/Time of Note DATE: 12/04/16 TIME: 11:03 Assessment/Plan VTE Prophylaxis VTE Prophylaxis Intervention: contraindicated Lines/Catheters IV Catheter Type (from Nrs): Central Line Central line still needed: Yes (sedation) Urinary Cath still in place: Yes Reason Cath still needed: other (indicate) (critical illness) Assessment/Plan Assessment/Plan 1. cards; s/p v tach arrest (b) stemi, s/p pci (c) paroxys mal a fib (d) cardiomyopathy 2. resp failure with failure to wean from vent, likely related to neurologic issue at this point, repeat cxr 3. neurO: numerous infarcts noted on mri (b) probable anoxic encephalopathy 4. renal ckd, acute renal failure resolved 5. case d/w brother Buddy according to buddy, a long history of substance abuse patient had a on hospice secondary to parkinsons, patient was happy with [facility]sp[facility] care at that time brother feels that patient would NOT WANT tracheostomy or intermediate facility if no meaningful brain function obtain neurology eval Subjective 24 Hr Interval Summary Free Text/Dictation on sedation holiday at this time spont moving all limbs, no response to voice Exam/Review of Systems Vital Signs Vitals Vital Signs Date Time Temp Pulse Resp B/P Pulse Ox O2 Delivery O2 Flow Rate FiO2 12/04/16 09:00 57 20 113/70 100 Mechanical Ventilator 12/04/16 08:00 98.5 12/04/16 05:00 30 Intake and Output 12/03/16 12/03/16 12/04/16 15:00 23:00 07:00 Intake Total 900.89 ml 962.262 ml 574.010 ml Output Total 480 ml 430 ml 410 ml Balance 420.89 ml 532.262 ml 164.010 ml Exam Respiratory: clear to auscultation Cardiovascular: regular rate and rhythm Gastrointestinal: non-tender, soft Results Result Diagram: 12/04/16 0420 12/04/16 0420 Results 24 hrs Laboratory Tests Test 12/03/16 18:38 12/03/16 20:11 12/03/16 20:38 12/03/16 21:15 Bedside Glucose 89 66 L 75 166 Test 12/03/16 21:41 12/04/16 00:51 12/04/16 04:20 12/04/16 05:38 Bedside Glucose 145 102 112 White Blood Count 12.1 H Red Blood Count 3.55 L Hemoglobin 10.6 L Hematocrit 34.0 L Mean Corpuscular Volume 95.8 Mean Corpuscular Hemoglobin 29.9 Mean Corpuscular Hemoglobin Concent 31.2 L Red Cell Distribution Width 15.4 H Platelet Count 288 Mean Platelet Volume 11.2 H Neutrophils % 66.4 Lymphocytes % 19.5 Monocytes % 8.0 Eosinophils % 4.6 Basophils % 1.1 Nucleated Red Blood Cells % 0.0 Neutrophils # 8.0 H Lymphocytes # 2.4 Monocytes # 1.0 H Eosinophils # 0.6 H Basophils # 0.1 Nucleated Red Blood Cells # 0.0 Sodium Level 138 Potassium Level 4.0 Chloride Level 107 Carbon Dioxide Level 25 Anion Gap 10 Blood Urea Nitrogen 29 H Creatinine 1.47 H Glucose Level 122 Calcium Level 9.5 Total Bilirubin 0.2 Direct Bilirubin 0.00 Indirect Bilirubin 0.2 Aspartate Amino Transf (AST/SGOT) 41 Alanine Aminotransferase (ALT/SGPT) 93 H Alkaline Phosphatase 111 Total Protein 5.8 L Albumin 2.9 L Globulin 2.90 Albumin/Globulin Ratio 1.00 Test 12/04/16 08:45 Bedside Glucose 111 Medications Medications Current Medications Aspirin (Halfprin) 81 mg DAILY PO Last administered on 12/04/16 08:53; Admin Dose 81 MG; Start 11/20/16 at 09:00 Ticagrelor 90 mg 90 mg BID PO Last administered on 12/04/16 08:48; Admin Dose 90 MG; Start 11/19/16 at 21:00 Propofol 100 ml @ 3.818 mls/ hr Q12H IV Last administered on 12/04/16 08:53; Admin Dose 7.636 MLS/HR; Start 11/19/16 at 16:30 Fentanyl (Sublimaze) 100 ml @ 2.5 mls/hr TITRATE IV Last administered on 04:03; Admin Dose 6 MLS/HR; Start 11/19/16 at 17:00 Ondansetron HCl (Zofran Inj) 4 mg Q6H PRN IV NAUSEA AND/OR VOMITING; Start 04/27 at 17:00 Acetaminophen (Tylenol Liquid) 650 mg Q6H PRN PO PAIN LEVEL 1-3 OR FEVER; Start 11/19/16 at 17:00 Acetaminophen (Tylenol Supp) 650 mg Q4H PRN [place] PAIN LEVEL 1-3 OR FEVER; Start 11/19/16 at 17:00 Docusate Sodium (Colace) 100 mg Q12H PRN PO CONSTIPATION; Start 11/19/16 at 17: 00 Magnesium Hydroxide (Milk Of Mag) 30 ml DAILY PRN PO CONSTIPATION Last administered on 11/29/16 09:23; Admin Dose 30 ML; Start 11/19/16 at 17:00 Bisacodyl (Dulcolax Supp) 10 mg DAILY PRN [place] CONSTIPATION Last administered on 11/29/16 09:23; Admin Dose 10 MG; Start 11/19/16 at 17:00 Famotidine (Pepcid Iv) 20 mg DAILY IV Last administered on 12/04/16 08:52; Admin Dose 20 MG; Start 11/19/16 at 17:00 Insulin Aspart (Novolog Insulin Pen) NOVOLOG *MODERATE* ALGORI... Q4 SC Last administered on 11/30/16 16:28; Admin Dose 2 UNIT; Start 11/19/16 at 17:30 Miscellaneous Information 1 ea NOTE XX ; Start 11/19/16 at 17:30 Glucose (Glutose) 15 gm Q15M PRN PO DECREASED GLUCOSE; Start 11/19/16 at 17:30 Glucose (Glutose) 22.5 gm Q15M PRN PO DECREASED GLUCOSE; Start 11/19/16 at 17: 30 Dextrose (D50w Syringe) 25 ml Q15M PRN IV DECREASED GLUCOSE Last administered on 12/03/16 20:15; Admin Dose 25 ML; Start 11/19/16 at 17:30 Dextrose (D50w Syringe) 50 ml Q15M PRN IV DECREASED GLUCOSE; Start 11/19/16 at 17:30 Glucagon (Glucagen) 1 mg Q15M PRN IM DECREASED GLUCOSE; Start 11/19/16 at 17:30 Glucose 15 gm 15 gm Q15M PRN BUCCAL DECREASED GLUCOSE; Start 11/19/16 at 17:30 Norepinephrine/ Dextrose (Levophed/D5W) 500 ml @ 1.875 mls/ hr TITRATE IV Last administered on 11/22/16 01:11; Admin Dose 7.5 MLS/HR; Start 11/20/16 at 19:30 Amiodarone HCl (Cordarone) 200 mg DAILY GTB Last administered on 12/04/16 08: 47; Admin Dose 200 MG; Start 11/23/16 at 09:00 Fluconazole 100 mg 100 mg DAILY NGT Last administered on 12/04/16 08:52; Admin Dose 100 MG; Start 11/25/16 at 09:00 Piperacillin Sod/ Tazobactam Sod (Zosyn 3.375gm/ 100 ml (Pmx)) 100 ml @ 100 mls /hr Q6 IVPB Last administered on 12/04/16 05:39; Admin Dose 100 MLS/HR; Start 11/24/16 at 12:00 Atorvastatin Calcium (Lipitor) 10 mg HS NGT Last administered on 12/03/16 20: 26; Admin Dose 10 MG; Start 11/24/16 at 21:00 Mupirocin (Bactroban) 1 applic BID TOP Last administered on 12/04/16 08:58; Admin Dose 1 APPLIC; Start 11/27/16 at 09:30 Insulin Glargine (Lantus) 20 unit DAILY@20 SC Last administered on 12/02/16 21 :34; Admin Dose 20 UNIT; Start 11/27/16 at 20:00 Propranolol HCl 10 mg 10 mg TID PO Last administered on 11/29/16 20:24; Admin Dose 10 MG; Start 11/27/16 at 21:00 Linezolid (Zyvox 600mg/D5W (Pmx)) 300 ml @ 300 mls/hr Q12 IVPB Last administered on 12/04/16 08:53; Admin Dose 300 MLS/HR; Start 11/28/16 at 11:00 Thiamine HCl (Vitamin B1) 100 mg DAILY IV Last administered on 12/04/16 09:10 ; Admin Dose 100 MG; Start 11/29/16 at 10:00 Folic Acid (Folic Acid) 1 mg DAILY NGT Last administered on 12/04/16 08:52; Admin Dose 1 MG; Start 11/29/16 at 10:00 Multivitamins (Multivitamin) 30 ml DAILY NGT Last administered on 12/04/16 08: 47; Admin Dose 30 ML; Start 11/29/16 at 10:30 Hydralazine HCl (Apresoline) 10 mg Q2 PRN IV For SBP >170; Start 12/04/16 at 00 :00 RODRIGO HENLEY MD Dec 04, 2016 11:22
--- NOTE | 2016-12-04 14:14 | RADRPT ---
PROCEDURE: XR Chest. CLINICAL INDICATION: CHF TECHNIQUE: Single AP portable chest. COMPARISON: 12/01/2016 Chest x-ray FINDINGS: The cardiac silhouette is mildly enlarged but stable in size. Support devices in stable position. Atherosclerotic calcification of the aorta. Mild vascular congestion slightly improved compared to prior study. No pneumothorax. The osseous structures and soft tissues are unremarkable. IMPRESSION: 1. Mild cardiomegaly and slight improvement in vascular congestion. 2. Support devices in stable and satisfactory position . RPTAT:AAJJ Cedrick Couch Physician Date Time Electronically viewed and signed by Physician Nestor on 12/04/2016 14:14 LILIYA/
[2016-12-04] MEDS ORDERED: POTASSIUM CHLORIDE (SR) 20 MEQ TAB PO STA (17:06)
[2016-12-04] MEDS ORDERED: FUROSEMIDE 20 MG INJ IV ONE (17:30)
--- NOTE | 2016-12-04 18:14 | PN ---
DATE: 12/04/2016 CARDIOLOGY FOLLOWUP SUBJECTIVE: The patient remains in sinus rhythm. Currently back into atrial fibrillation with rapi d ventricular response during the weaning trial. He was placed on CPAP. Did not tolerate it. Was placed back on SIMV mode now. Still remains nonresponsive. Discussed with the staff. Rhythm strip was reviewed. MEDICATIONS: Reviewed, extensive, as per medication reconciliation, was personally reviewed. PHYSICAL EXAMINATION: VITAL SIGNS: Temperature 98.6, heart rate of 67, blood pressure 157/100, respiration rate of 19, sa turating 100%. HEENT: Normocephalic, atraumatic. Obese gentleman. Pupils equal and round. NECK: Supple. No stridor status post intubation on the vent. CARDIOVASCULAR: Regular rate and rhythm. GASTROINTESTINAL: Obese, soft, nontender. PULMONARY: Anteriorly with no wheezes. EXTREMITIES: With trivial edema. NEUROLOGIC: Does not respond to verbal stimuli. Opens his eyes spontaneously, but does not appear to be following any commands though. LABORATORY DATA: Sodium 138, potassium 4, BUN of 29, creatinine 1.47, glucose 122. ALT of 93. Alb umin is 2.9. IMAGING: Chest x-ray was personally reviewed. Showed mild pulmonary vascular congestion. Appeared to be improving. ASSESSMENT AND PLAN: 1. Status post ST elevation myocardial infarction, status post cardiac arrest secondary to ventricu lar tachycardia secondary to above. 2. Status post percutaneous coronary intervention of left circumflex artery. 3. Renal failure. Appears to be acute on chronic. Currently has improved significantly. 4. Congestive heart failure. 5. Recurrence of sustained ventricular tachycardia. 6. Paroxysmal atrial fibrillation. 7. Severe encephalopathy. 8. Dyslipidemia. 9. Hypertension, ____ hypotensive. RECOMMENDATIONS: We will continue with the respiratory care. Weaning as tolerated will be attempte d again. Would increase the amiodarone to 400 b.i.d. Currently not on Coreg due to episodes of bra dycardia. I will give another dose of Lasix to diurese him better in anticipation for possible wean ing trial again tomorrow. Code status DNR though. Continue with the ICU care. More than 37 minutes of critical care time was spent managing this patient excluding procedures. Dictated By: SERENA CENTENO/JUANY Conf#: [id number] [facility]#: [id number] CC: Jv ____; PIO VEGA MD;*[facility]*
--- NOTE | 2016-12-04 18:23 | CONS ---
Date/Time of Note Date/Time of Note DATE: 12/04/16 TIME: 18:22 Assessment/Plan Assessment/Plan Additional Assessment/Plan 1. Acute kidney injury on possible previous chronic kidney disease with last creatinine known about 1.48 secondary to acute tubular necrosis from ischemic acute tubular necrosis from cardiogenic shock.- Improving with good urine output 2. Acute respiratory failure from cardiogenic shock, currently intubated on ventilator- failed weaning trial due to pulmonary congestion 3. Acute non-ST elevation myocardial infarction, s/p v tach arrest s/p pci of RCA, possible staged procedure to LCx required s/p IABP, now off 4. History of possible chronic kidney disease secondary to diabetic nephropathy , unknown stage. 5. History of type 2 diabetes mellitus. 6. History of hypertension. Plan: remains intubated, ventilator care as per pulmonary Cr1.[address] Free water flush CT head with chronic multiple infarcts and ? hepatic, toxic encephalopathy on Brilinat Post cath will continue to follow up on patient DNR code status no indication for renal replacement therapy at this time Consultation Date/Type/Reason Admit Date/Time Nov 19, 2016 at 16:09 Initial Consult Date Nov Type of Consultation: NEPHROLOGY Referring Provider: PIO VEGA 24 HR Interval Summary Free Text/Dictation pt stable, afebrile, BP stable ,remains intubated Exam/Review of Systems Vital Signs Vitals Vital Signs Date Time Temp Pulse Resp B/P Pulse Ox O2 Delivery O2 Flow Rate FiO2 12/04/16 16:10 30 12/04/16 16:00 67 19 157/104 100 Mechanical Ventilator 12/04/16 12:00 98.6 Intake and Output 12/03/16 12/03/16 12/04/16 15:00 23:00 07:00 Intake Total 900.89 ml 962.262 ml 587.370 ml Output Total 480 ml 430 ml 410 ml Balance 420.89 ml 532.262 ml 177.370 ml Exam GENERAL: no acute distress , remains intubated NECK: supple + Et tube LUNGS: Bilateral crackles + HEART: S1, S2, tachycardia, no murmur. ABDOMEN: Soft, morbidly obese. EXTREMITIES: 1 to 2+ pitting edema. No clubbing, cyanosis. NEUROLOGICAL: Uncooperative for exam PSYCHIATRIC: Not able to assess at this point. Results Result Diagram: 12/04/16 0420 12/04/16 0420 Results 24 hrs Laboratory Tests Test 12/03/16 18:38 12/03/16 20:11 12/03/16 20:38 12/03/16 21:15 Bedside Glucose 89 66 L 75 166 Test 12/03/16 21:41 12/04/16 00:51 12/04/16 04:20 12/04/16 05:38 Bedside Glucose 145 102 112 White Blood Count 12.1 H Red Blood Count 3.55 L Hemoglobin 10.6 L Hematocrit 34.0 L Mean Corpuscular Volume 95.8 Mean Corpuscular Hemoglobin 29.9 Mean Corpuscular Hemoglobin Concent 31.2 L Red Cell Distribution Width 15.4 H Platelet Count 288 Mean Platelet Volume 11.2 H Neutrophils % 66.4 Lymphocytes % 19.5 Monocytes % 8.0 Eosinophils % 4.6 Basophils % 1.1 Nucleated Red Blood Cells % 0.0 Neutrophils # 8.0 H Lymphocytes # 2.4 Monocytes # 1.0 H Eosinophils # 0.6 H Basophils # 0.1 Nucleated Red Blood Cells # 0.0 Sodium Level 138 Potassium Level 4.0 Chloride Level 107 Carbon Dioxide Level 25 Anion Gap 10 Blood Urea Nitrogen 29 H Creatinine 1.47 H Glucose Level 122 Calcium Level 9.5 Total Bilirubin 0.2 Direct Bilirubin 0.00 Indirect Bilirubin 0.2 Aspartate Amino Transf (AST/SGOT) 41 Alanine Aminotransferase (ALT/SGPT) 93 H Alkaline Phosphatase 111 Total Protein 5.8 L Albumin 2.9 L Globulin 2.90 Albumin/Globulin Ratio 1.00 Test 12/04/16 08:45 12/04/16 12:16 12/04/16 17:28 Bedside Glucose 111 124 141 Medications Medications Current Medications Aspirin (Halfprin) 81 mg DAILY PO Last administered on 12/04/16 08:53; Admin Dose 81 MG; Start 11/20/16 at 09:00 Ticagrelor 90 mg 90 mg BID PO Last administered on 12/04/16 08:48; Admin Dose 90 MG; Start 11/19/16 at 21:00 Propofol 100 ml @ 3.818 mls/ hr Q12H IV Last administered on 12/04/16 18:08; Admin Dose 3.818 MLS/HR; Start 11/19/16 at 16:30 Fentanyl (Sublimaze) 100 ml @ 2.5 mls/hr TITRATE IV Last administered on 04:03; Admin Dose 6 MLS/HR; Start 11/19/16 at 17:00 Ondansetron HCl (Zofran Inj) 4 mg Q6H PRN IV NAUSEA AND/OR VOMITING; Start 04/27 at 17:00 Acetaminophen (Tylenol Liquid) 650 mg Q6H PRN PO PAIN LEVEL 1-3 OR FEVER; Start 11/19/16 at 17:00 Acetaminophen (Tylenol Supp) 650 mg Q4H PRN [place] PAIN LEVEL 1-3 OR FEVER; Start 11/19/16 at 17:00 Docusate Sodium (Colace) 100 mg Q12H PRN PO CONSTIPATION; Start 11/19/16 at 17: 00 Magnesium Hydroxide (Milk Of Mag) 30 ml DAILY PRN PO CONSTIPATION Last administered on 11/29/16 09:23; Admin Dose 30 ML; Start 11/19/16 at 17:00 Bisacodyl (Dulcolax Supp) 10 mg DAILY PRN [place] CONSTIPATION Last administered on 11/29/16 09:23; Admin Dose 10 MG; Start 11/19/16 at 17:00 Famotidine (Pepcid Iv) 20 mg DAILY IV Last administered on 12/04/16 08:52; Admin Dose 20 MG; Start 11/19/16 at 17:00 Insulin Aspart (Novolog Insulin Pen) NOVOLOG *MODERATE* ALGORI... Q4 SC Last administered on 12/04/16 17:44; Admin Dose 2 UNIT; Start 11/19/16 at 17:30 Miscellaneous Information 1 ea NOTE XX ; Start 11/19/16 at 17:30 Glucose (Glutose) 15 gm Q15M PRN PO DECREASED GLUCOSE; Start 11/19/16 at 17:30 Glucose (Glutose) 22.5 gm Q15M PRN PO DECREASED GLUCOSE; Start 11/19/16 at 17: 30 Dextrose (D50w Syringe) 25 ml Q15M PRN IV DECREASED GLUCOSE Last administered on 12/03/16 20:15; Admin Dose 25 ML; Start 11/19/16 at 17:30 Dextrose (D50w Syringe) 50 ml Q15M PRN IV DECREASED GLUCOSE; Start 11/19/16 at 17:30 Glucagon (Glucagen) 1 mg Q15M PRN IM DECREASED GLUCOSE; Start 11/19/16 at 17:30 Glucose 15 gm 15 gm Q15M PRN BUCCAL DECREASED GLUCOSE; Start 11/19/16 at 17:30 Norepinephrine/ Dextrose (Levophed/D5W) 500 ml @ 1.875 mls/ hr TITRATE IV Last administered on 11/22/16 01:11; Admin Dose 7.5 MLS/HR; Start 11/20/16 at 19:30 Fluconazole 100 mg 100 mg DAILY NGT Last administered on 12/04/16 08:52; Admin Dose 100 MG; Start 11/25/16 at 09:00 Piperacillin Sod/ Tazobactam Sod (Zosyn 3.375gm/ 100 ml (Pmx)) 100 ml @ 100 mls /hr Q6 IVPB Last administered on 12/04/16 17:25; Admin Dose 100 MLS/HR; Start 11/24/16 at 12:00 Atorvastatin Calcium (Lipitor) 10 mg HS NGT Last administered on 12/03/16 20: 26; Admin Dose 10 MG; Start 11/24/16 at 21:00 Mupirocin (Bactroban) 1 applic BID TOP Last administered on 12/04/16 08:58; Admin Dose 1 APPLIC; Start 11/27/16 at 09:30 Insulin Glargine (Lantus) 20 unit DAILY@20 SC Last administered on 12/02/16 21 :34; Admin Dose 20 UNIT; Start 11/27/16 at 20:00 Propranolol HCl 10 mg 10 mg TID PO Last administered on 12/04/16 12:13; Admin Dose 10 MG; Start 11/27/16 at 21:00 Linezolid (Zyvox 600mg/D5W (Pmx)) 300 ml @ 300 mls/hr Q12 IVPB Last administered on 12/04/16 08:53; Admin Dose 300 MLS/HR; Start 11/28/16 at 11:00 Thiamine HCl (Vitamin B1) 100 mg DAILY IV Last administered on 12/04/16 09:10 ; Admin Dose 100 MG; Start 11/29/16 at 10:00 Folic Acid (Folic Acid) 1 mg DAILY NGT Last administered on 12/04/16 08:52; Admin Dose 1 MG; Start 6/21/17 at 10:00 Multivitamins (Multivitamin) 30 ml DAILY NGT Last administered on 12/04/16t 08: 47; Admin Dose 30 ML; Start 11/29/16 at 10:30 Hydralazine HCl (Apresoline) 10 mg Q2 PRN IV For SBP >170; Start 12/04/16 at 00 :00 Amiodarone HCl (Cordarone) 400 mg BID GTB ; Start 12/04/16 at 21:00 FÁTIMA PERES MD Dec 04, 2016 18:23
[2016-12-04] MEDS: ATORVASTATIN 10 MG TAB NGT SCH (20:40)
[2016-12-04] MEDS: INSULIN GLARGINE [LANtus] 3 ML PEN SC SCH (20:46)
[2016-12-05] VITALS (36 sets, daily range): BP systolic 99–163; BP diastolic 58–96; PULSE 45–73; RESP 11–26
[2016-12-05] MEDS: PIPER-TAZO 3.375 GM IV (PMX) 100 ML IVPB SCH ×2 (00:35→05:15)
[2016-12-05] MEDS: INSULIN ASPART [NOVOLOG] 3 ML PEN SC SCH ×6 (00:35→21:00)
[2016-12-05] MEDS: FENTAnyl (DRIP) 1000 mcg/100mL 100 ML IV SCH (02:15)
[2016-12-05] MEDS: PROPOFOL 100 ML IV SCH (02:15)
[2016-12-05 07:02] LABS: ALBUMIN 3.1 g/dl (3.3-4.9); BILIRUBIN,INDIRECT 0.2 mg/dl (0-1.1); BILIRUBIN,TOTAL 0.2 mg/dl (0.2-1.3); CALCIUM 9.5 mg/dl (8.4-10.2); CREATININE 1.52 mg/dl (0.61-1.24); MAGNESIUM 2.1 mg/dl (1.7-2.5); POTASSIUM 3.9 mmol/L (3.5-5.1); TOTAL PROTEIN 6.2 g/dl (6.1-8.1)
[2016-12-05] MEDS: LINEZOLID 600 MG/D5W (PMX) 300 ML IVPB SCH ×2 (08:53→21:09)
[2016-12-05] MEDS: TICAGRELOR 90 MG TABLET PO SCH ×2 (08:57→21:08)
[2016-12-05] MEDS: FLUCONAZOLE 100 MG TAB NGT SCH (08:58)
[2016-12-05] MEDS: THIAMINE 200 MG INJ IV SCH (08:59)
[2016-12-05] MEDS: FAMOTIDINE 20 MG INJ IV SCH (08:59)
[2016-12-05] MEDS: MULTIVITAMINS 30 ML CUP NGT SCH (08:59)
[2016-12-05] MEDS: ASPIRIN (EC) 81 MG TAB PO SCH (08:59)
[2016-12-05] MEDS: FOLIC ACID 1 MG TAB NGT SCH (08:59)
[2016-12-05] MEDS: PROPRANOLOL 10 MG TAB PO SCH ×3 (09:00→21:00)
[2016-12-05] MEDS: MUPIROCIN 2% 22 GM OINT TOP SCH ×2 (09:00→21:10)
[2016-12-05] MEDS: AMIODARONE 200 MG TAB GTB SCH ×2 (09:38→21:08)
--- NOTE | 2016-12-05 10:40 | CONS ---
Date/Time of Note Date/Time of Note DATE: 12/05/16 TIME: 10:36 Assessment/Plan Assessment/Plan Additional Assessment/Plan Chest x-ray was reviewed from yesterday afternoon which is essentially unremarkable. Endotracheal tube is at an adequate level. Current ventilator setting; AC of 20, tidal volume 500, PEEP of 5, 30% FiO2. Patient currently on fentanyl drip at 50 mics per hour, propofol at 10 mics per milligram per minute. Assessment recommendations; 1. Patient admitted for cardiac arrest status post emergent PTCA of circumflex lesion. 2. Status post CPR 2 with resulting anoxic brain injury. 3. Stable renal insufficiency. 4. Pneumonia, currently on appropriate antibiotic regimen. 5. Diabetes. 6. Bilateral toe gangrene, due to high pressor requirement at time of admission. Patient however does have excellent peripheral pulses. 7. Mild CHF. Lasix started yesterday. Discontinue Zosyn and Diflucan. Continue Zyvox for a total of 10 days. Stop sedation again. With the patient is off sedation he will be evaluated for possible weaning from ventilator. Prognosis does appear poor. 6. Underlying obesity. Consultation Date/Type/Reason Admit Date/Time Nov 19, 2016 at 16:09 Type of Consultation: Pulmonary/critical care Referring Provider: PIO VEGA 24 HR Interval Summary Free Text/Dictation Patient's condition remains critical. Patient still exhibiting extremely poor mental status. Was tried on CPAP mode yesterday, patient did meet weaning criteria however because of morbid obesity and poor mental status it was decided to leave the patient intubated for fear of airway closure after extubation. Patient has remained hemodynamically stable. No untoward events reported. General exam; middle-aged male, morbidly obese, orally intubated, sedated. Exam/Review of Systems Vital Signs Vitals Vital Signs Date Time Temp Pulse Resp B/P Pulse Ox O2 Delivery O2 Flow Rate FiO2 12/05/16 10:00 55 19 130/70 100 Mechanical Ventilator 12/05/16 09:55 30 12/05/16 08:00 97.9 Intake and Output 12/04/16 12/04/16 12/05/16 15:00 23:00 07:00 Intake Total 946.72 ml 888.174 ml 768.452 ml Output Total 380 ml 925 ml 950 ml Balance 566.72 ml -36.826 ml -181.548 ml Exam HEENT exam; supple neck, no JVD. No lymphadenopathy. Midline trachea. No thyromegaly. Orally intubated. Patient is edentulous. Pupils are small bilaterally. Chest exam; diminished but clear vessel. S1-S2 audible, no murmurs. Regular rhythm. Abdomen exam is; soft, protuberant. No organomegaly. Bowel sounds audible. Extremity exam; trace edema. Patient does have stable bilateral toe gangrene. Dorsalis pedis pulses are 2+ bilaterally. 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 Results Result Diagram: 12/04/16 0420 12/05/16 0520 Results 24 hrs Laboratory Tests Test 12/04/16 12:16 12/04/16 17:28 12/04/16 20:40 12/05/16 00:34 Bedside Glucose 124 141 125 124 Test 12/05/16 05:08 12/05/16 05:17 12/05/16 05:20 12/05/16 08:43 Bedside Glucose 79 121 92 Sodium Level 144 Potassium Level 3.9 Chloride Level 109 Carbon Dioxide Level 25 Anion Gap 14 Blood Urea Nitrogen 25 H Creatinine 1.52 H Glucose Level 120 Calcium Level 9.5 Magnesium Level 2.1 Total Bilirubin 0.2 Direct Bilirubin 0.00 Indirect Bilirubin 0.2 Aspartate Amino Transf (AST/SGOT) 43 Alanine Aminotransferase (ALT/SGPT) 84 H Alkaline Phosphatase 101 B-Type Natriuretic Peptide 7120 H Total Protein 6.2 Albumin 3.1 L Globulin 3.10 Albumin/Globulin Ratio 1.00 Medications Medications Current Medications Aspirin (Halfprin) 81 mg DAILY PO Last administered on 12/05/16 08:59; Admin Dose 81 MG; Start 11/20/16 at 09:00 Ticagrelor 90 mg 90 mg BID PO Last administered on 12/05/16 08:57; Admin Dose 90 MG; Start 11/19/16 at 21:00 Propofol 100 ml @ 3.818 mls/ hr Q12H IV Last administered on 12/05/16 02:15; Admin Dose 7.636 MLS/HR; Start 11/19/16 at 16:30 Fentanyl (Sublimaze) 100 ml @ 2.5 mls/hr TITRATE IV Last administered on 02:15; Admin Dose 5 MLS/HR; Start 11/19/16 at 17:00 Ondansetron HCl (Zofran Inj) 4 mg Q6H PRN IV NAUSEA AND/OR VOMITING; Start 04/27 at 17:00 Acetaminophen (Tylenol Liquid) 650 mg Q6H PRN PO PAIN LEVEL 1-3 OR FEVER; Start 11/19/16 at 17:00 Acetaminophen (Tylenol Supp) 650 mg Q4H PRN DE PAIN LEVEL 1-3 OR FEVER; Start 11/19/16 at 17:00 Docusate Sodium (Colace) 100 mg Q12H PRN PO CONSTIPATION; Start 11/19/16 at 17: 00 Magnesium Hydroxide (Milk Of Mag) 30 ml DAILY PRN PO CONSTIPATION Last administered on 11/29/16 09:23; Admin Dose 30 ML; Start 11/19/16 at 17:00 Bisacodyl (Dulcolax Supp) 10 mg DAILY PRN [place] CONSTIPATION Last administered on 11/29/16 09:23; Admin Dose 10 MG; Start 11/19/16 at 17:00 Famotidine (Pepcid Iv) 20 mg DAILY IV Last administered on 12/05/16 08:59; Admin Dose 20 MG; Start 11/19/16 at 17:00 Insulin Aspart (Novolog Insulin Pen) NOVOLOG *MODERATE* ALGORI... Q4 SC Last administered on 12/04/16 17:44; Admin Dose 2 UNIT; Start 11/19/16 at 17:30 Miscellaneous Information 1 ea NOTE XX ; Start 11/19/16 at 17:30 Glucose (Glutose) 15 gm Q15M PRN PO DECREASED GLUCOSE; Start 11/19/16 at 17:30 Glucose (Glutose) 22.5 gm Q15M PRN PO DECREASED GLUCOSE; Start 11/19/16 at 17: 30 Dextrose (D50w Syringe) 25 ml Q15M PRN IV DECREASED GLUCOSE Last administered on 12/03/16 20:15; Admin Dose 25 ML; Start 11/19/16 at 17:30 Dextrose (D50w Syringe) 50 ml Q15M PRN IV DECREASED GLUCOSE; Start 11/19/16 at 17:30 Glucagon (Glucagen) 1 mg Q15M PRN IM DECREASED GLUCOSE; Start 11/19/16 at 17:30 Glucose 15 gm 15 gm Q15M PRN BUCCAL DECREASED GLUCOSE; Start 11/19/16 at 17:30 Norepinephrine/ Dextrose (Levophed/D5W) 500 ml @ 1.875 mls/ hr TITRATE IV Last administered on 11/22/16 01:11; Admin Dose 7.5 MLS/HR; Start 11/20/16 at 19:30 Fluconazole 100 mg 100 mg DAILY NGT Last administered on 12/05/16 08:58; Admin Dose 100 MG; Start 11/25/16 at 09:00 Piperacillin Sod/ Tazobactam Sod (Zosyn 3.375gm/ 100 ml (Pmx)) 100 ml @ 100 mls /hr Q6 IVPB Last administered on 12/05/16 05:15; Admin Dose 100 MLS/HR; Start 11/24/16 at 12:00 Atorvastatin Calcium (Lipitor) 10 mg HS NGT Last administered on 12/04/16 20: 40; Admin Dose 10 MG; Start 11/24/16 at 21:00 Mupirocin (Bactroban) 1 applic BID TOP Last administered on 12/05/16 09:00; Admin Dose 1 APPLIC; Start 11/27/16 at 09:30 Insulin Glargine (Lantus) 20 unit DAILY@20 SC Last administered on 12/04/16 20 :46; Admin Dose 20 UNIT; Start 11/27/16 at 20:00 Propranolol HCl 10 mg 10 mg TID PO Last administered on 12/04/16 12:13; Admin Dose 10 MG; Start 11/27/16 at 21:00 Linezolid (Zyvox 600mg/D5W (Pmx)) 300 ml @ 300 mls/hr Q12 IVPB Last administered on 12/05/16 08:53; Admin Dose 300 MLS/HR; Start 11/28/16 at 11:00 Thiamine HCl (Vitamin B1) 100 mg DAILY IV Last administered on 12/05/16 08:59 ; Admin Dose 100 MG; Start 11/29/16 at 10:00 Folic Acid (Folic Acid) 1 mg DAILY NGT Last administered on 12/05/16 08:59; Admin Dose 1 MG; Start 11/29/16 at 10:00 Multivitamins (Multivitamin) 30 ml DAILY NGT Last administered on 12/05/16 08: 59; Admin Dose 30 ML; Start 11/29/16 at 10:30 Hydralazine HCl (Apresoline) 10 mg Q2 PRN IV For SBP >170; Start 12/04/16 at 00 :00 Amiodarone HCl (Cordarone) 400 mg BID GTB Last administered on 12/05/16t 09:38 ; Admin Dose 400 MG; Start 12/04/16 at 21:00 ELEONORA LEWIS Dec 05, 2016 10:40
--- NOTE | 2016-12-05 11:12 | PN ---
Date/Time of Note Date/Time of Note DATE: 12/05/16 TIME: 11:07 Assessment/Plan VTE Prophylaxis VTE Prophylaxis Intervention: SCD's Lines/Catheters IV Catheter Type (from Nrs): Central Line Central line still needed: No Urinary Cath still in place: Yes (critical illness) Reason Cath still needed: other (indicate) Assessment/Plan Assessment/Plan 1. cards; s/p v tach arrest and cpr x2 (b) stemi, s/p pci cont asa and brilinta (c) paroxysmal a fib, will likely require d/c asa and add anticoagulattion; defer to cardiology (d) cardiomyopathy 2. resp failure with cont weaning trials, spot with lasix to improve status, 3. neurO: numerous infarcts noted on mri (b) probable anoxic encephalopathy (c) difficulty with weaning may well be in some ways neurologically mediated (d) some improvement in ability to interact with me today, await neuro eval 4. renal ckd, acute renal failure resolved 5. 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 if no meaningful brain function obtain neurology eval Subjective 24 Hr Interval Summary Free Text/Dictation more awake today, will respond to some command Exam/Review of Systems Vital Signs Vitals Vital Signs Date Time Temp Pulse Resp B/P Pulse Ox O2 Delivery O2 Flow Rate FiO2 12/05/16 10:00 55 19 130/70 100 Mechanical Ventilator 12/05/16 09:55 30 12/05/16 08:00 97.9 Intake and Output 12/04/16 12/04/16 12/05/16 15:00 23:00 07:00 Intake Total 946.72 ml 888.174 ml 768.452 ml Output Total 380 ml 925 ml 950 ml Balance 566.72 ml -36.826 ml -181.548 ml Exam Cardiovascular: regular rate and rhythm Results Result Diagram: 12/04/16 0420 12/05/16 0520 Results 24 hrs Laboratory Tests Test 12/04/16 12:16 12/04/16 17:28 12/04/16 20:40 12/05/16 00:34 Bedside Glucose 124 141 125 124 Test 12/05/16 05:08 12/05/16 05:17 12/05/16 05:20 12/05/16 08:43 Bedside Glucose 79 121 92 Sodium Level 144 Potassium Level 3.9 Chloride Level 109 Carbon Dioxide Level 25 Anion Gap 14 Blood Urea Nitrogen 25 H Creatinine 1.52 H Glucose Level 120 Calcium Level 9.5 Magnesium Level 2.1 Total Bilirubin 0.2 Direct Bilirubin 0.00 Indirect Bilirubin 0.2 Aspartate Amino Transf (AST/SGOT) 43 Alanine Aminotransferase (ALT/SGPT) 84 H Alkaline Phosphatase 101 B-Type Natriuretic Peptide 7120 H Total Protein 6.2 Albumin 3.1 L Globulin 3.10 Albumin/Globulin Ratio 1.00 Medications Medications Current Medications Aspirin (Halfprin) 81 mg DAILY PO Last administered on 12/05/16 08:59; Admin Dose 81 MG; Start 11/20/16 at 09:00 Ticagrelor 90 mg 90 mg BID PO Last administered on 12/05/16 08:57; Admin Dose 90 MG; Start 11/19/16 at 21:00 Propofol 100 ml @ 3.818 mls/ hr Q12H IV Last administered on 12/05/16 02:15; Admin Dose 7.636 MLS/HR; Start 11/19/16 at 16:30 Fentanyl (Sublimaze) 100 ml @ 2.5 mls/hr TITRATE IV Last administered on 02:15; Admin Dose 5 MLS/HR; Start 11/19/16 at 17:00 Ondansetron HCl (Zofran Inj) 4 mg Q6H PRN IV NAUSEA AND/OR VOMITING; Start 04/27 at 17:00 Acetaminophen (Tylenol Liquid) 650 mg Q6H PRN PO PAIN LEVEL 1-3 OR FEVER; Start 11/19/16 at 17:00 Acetaminophen (Tylenol Supp) 650 mg Q4H PRN [place] PAIN LEVEL 1-3 OR FEVER; Start 11/19/16 at 17:00 Docusate Sodium (Colace) 100 mg Q12H PRN PO CONSTIPATION; Start 11/19/16 at 17: 00 Magnesium Hydroxide (Milk Of Mag) 30 ml DAILY PRN PO CONSTIPATION Last administered on 11/29/16 09:23; Admin Dose 30 ML; Start 11/19/16 at 17:00 Bisacodyl (Dulcolax Supp) 10 mg DAILY PRN [place] CONSTIPATION Last administered on 11/29/16 09:23; Admin Dose 10 MG; Start 11/19/16 at 17:00 Famotidine (Pepcid Iv) 20 mg DAILY IV Last administered on 12/05/16 08:59; Admin Dose 20 MG; Start 11/19/16 at 17:00 Insulin Aspart (Novolog Insulin Pen) NOVOLOG *MODERATE* ALGORI... Q4 SC Last administered on 12/04/16 17:44; Admin Dose 2 UNIT; Start 11/19/16 at 17:30 Miscellaneous Information 1 ea NOTE XX ; Start 11/19/16 at 17:30 Glucose (Glutose) 15 gm Q15M PRN PO DECREASED GLUCOSE; Start 11/19/16 at 17:30 Glucose (Glutose) 22.5 gm Q15M PRN PO DECREASED GLUCOSE; Start 11/19/16 at 17: 30 Dextrose (D50w Syringe) 25 ml Q15M PRN IV DECREASED GLUCOSE Last administered on 12/03/16 20:15; Admin Dose 25 ML; Start 11/19/16 at 17:30 Dextrose (D50w Syringe) 50 ml Q15M PRN IV DECREASED GLUCOSE; Start 11/19/16 at 17:30 Glucagon (Glucagen) 1 mg Q15M PRN IM DECREASED GLUCOSE; Start 11/19/16 at 17:30 Glucose 15 gm 15 gm Q15M PRN BUCCAL DECREASED GLUCOSE; Start 11/19/16 at 17:30 Norepinephrine/ Dextrose (Levophed/D5W) 500 ml @ 1.875 mls/ hr TITRATE IV Last administered on 11/22/16 01:11; Admin Dose 7.5 MLS/HR; Start 11/20/16 at 19:30 Atorvastatin Calcium (Lipitor) 10 mg HS NGT Last administered on 12/04/16 20: 40; Admin Dose 10 MG; Start 11/24/16 at 21:00 Mupirocin (Bactroban) 1 applic BID TOP Last administered on 12/05/16 09:00; Admin Dose 1 APPLIC; Start 11/27/16 at 09:30 Insulin Glargine (Lantus) 20 unit DAILY@20 SC Last administered on 12/04/16 20 :46; Admin Dose 20 UNIT; Start 11/27/16 at 20:00 Propranolol HCl 10 mg 10 mg TID PO Last administered on 12/04/16 12:13; Admin Dose 10 MG; Start 11/27/16 at 21:00 Linezolid (Zyvox 600mg/D5W (Pmx)) 300 ml @ 300 mls/hr Q12 IVPB Last administered on 12/05/16 08:53; Admin Dose 300 MLS/HR; Start 11/28/16 at 11:00 Thiamine HCl (Vitamin B1) 100 mg DAILY IV Last administered on 12/05/16 08:59 ; Admin Dose 100 MG; Start 11/29/16 at 10:00 Folic Acid (Folic Acid) 1 mg DAILY NGT Last administered on 12/05/16 08:59; Admin Dose 1 MG; Start 11/29/16 at 10:00 Multivitamins (Multivitamin) 30 ml DAILY NGT Last administered on 12/05/16 08: 59; Admin Dose 30 ML; Start 11/29/16 at 10:30 Hydralazine HCl (Apresoline) 10 mg Q2 PRN IV For SBP >170; Start 12/04/16 at 00 :00 Amiodarone HCl (Cordarone) 400 mg BID GTB Last administered on 12/05/16 09:38 ; Admin Dose 400 MG; Start 12/04/16 at 21:00 RODRIGO HENLEY MD Dec 05, 2016 11:11
[2016-12-05] MEDS ORDERED: FUROSEMIDE 40 MG INJ IV ONE (11:30)
--- NOTE | 2016-12-05 17:17 | CONS ---
Date/Time of Note Date/Time of Note DATE: 12/05/16 TIME: 17:15 Assessment/Plan Assessment/Plan Additional Assessment/Plan 1. Acute kidney injury on possible previous chronic kidney disease with last creatinine known about 1.48 secondary to acute tubular necrosis from ischemic acute tubular necrosis from cardiogenic shock.- Improving with good urine output 2. Acute respiratory failure from cardiogenic shock, currently intubated on ventilator- failed weaning trial due to pulmonary congestion 3. Acute non-ST elevation myocardial infarction, s/p v tach arrest s/p pci of RCA, possible staged procedure to LCx required s/p IABP, now off 4. History of possible chronic kidney disease secondary to diabetic nephropathy , unknown stage. 5. History of type 2 diabetes mellitus. 6. History of hypertension. 7. paroxysmal atrial fibrillation Plan: remains intubated, ventilator care as per pulmonary Cr1.5 [address] Free water flush CT head with chronic multiple infarcts and ? hepatic, toxic encephalopathy DNR code status no indication for renal replacement therapy at this time goals of care discussion in progress Consultation Date/Type/Reason Admit Date/Time Nov 19, 2016 at 16:09 Initial Consult Date Nov Type of Consultation: NEPHROLOGY Referring Provider: PIO VEGA Exam/Review of Systems Vital Signs Vitals Vital Signs Date Time Temp Pulse Resp B/P Pulse Ox O2 Delivery O2 Flow Rate FiO2 12/05/16 16:00 98.2 54 21 125/77 100 Mechanical Ventilator 12/05/16 11:16 30 Intake and Output 12/04/16 12/04/16 12/05/16 15:00 23:00 07:00 Intake Total 946.72 ml 888.174 ml 821.088 ml Output Total 380 ml 925 ml 1000 ml Balance 566.72 ml -36.826 ml -178.912 ml Exam GENERAL: no acute distress , remains intubated NECK: supple + Et tube LUNGS: Bilateral crackles + HEART: S1, S2, tachycardia, no murmur. ABDOMEN: Soft, morbidly obese. EXTREMITIES: 1 to 2+ pitting edema. No clubbing, cyanosis. NEUROLOGICAL: Uncooperative for exam PSYCHIATRIC: Not able to assess at this point Results Result Diagram: 12/04/16 0420 12/05/16 0520 Results 24 hrs Laboratory Tests Test 12/04/16 17:28 12/04/16 20:40 12/05/16 00:34 12/05/16 05:08 Bedside Glucose 141 125 124 79 Test 12/05/16 05:17 12/05/16 05:20 12/05/16 08:43 12/05/16 12:26 Bedside Glucose 121 92 104 Sodium Level 144 Potassium Level 3.9 Chloride Level 109 Carbon Dioxide Level 25 Anion Gap 14 Blood Urea Nitrogen 25 H Creatinine 1.52 H Glucose Level 120 Calcium Level 9.5 Magnesium Level 2.1 Total Bilirubin 0.2 Direct Bilirubin 0.00 Indirect Bilirubin 0.2 Aspartate Amino Transf (AST/SGOT) 43 Alanine Aminotransferase (ALT/SGPT) 84 H Alkaline Phosphatase 101 B-Type Natriuretic Peptide 7120 H Total Protein 6.2 Albumin 3.1 L Globulin 3.10 Albumin/Globulin Ratio 1.00 Medications Medications Current Medications Aspirin (Halfprin) 81 mg DAILY PO Last administered on 12/05/16 08:59; Admin Dose 81 MG; Start 11/20/16 at 09:00 Ticagrelor 90 mg 90 mg BID PO Last administered on 12/05/16 08:57; Admin Dose 90 MG; Start 11/19/16 at 21:00 Propofol 100 ml @ 3.818 mls/ hr Q12H IV Last administered on 12/05/16 02:15; Admin Dose 7.636 MLS/HR; Start 11/19/16 at 16:30 Fentanyl (Sublimaze) 100 ml @ 2.5 mls/hr TITRATE IV Last administered on 02:15; Admin Dose 5 MLS/HR; Start 11/19/16 at 17:00 Ondansetron HCl (Zofran Inj) 4 mg Q6H PRN IV NAUSEA AND/OR VOMITING; Start 04/27 at 17:00 Acetaminophen (Tylenol Liquid) 650 mg Q6H PRN PO PAIN LEVEL 1-3 OR FEVER; Start 11/19/16 at 17:00 Acetaminophen (Tylenol Supp) 650 mg Q4H PRN [place] PAIN LEVEL 1-3 OR FEVER; Start 11/19/16 at 17:00 Docusate Sodium (Colace) 100 mg Q12H PRN PO CONSTIPATION; Start 11/19/16 at 17: 00 Magnesium Hydroxide (Milk Of Mag) 30 ml DAILY PRN PO CONSTIPATION Last administered on 11/29/16 09:23; Admin Dose 30 ML; Start 11/19/16 at 17:00 Bisacodyl (Dulcolax Supp) 10 mg DAILY PRN [place] CONSTIPATION Last administered on 11/29/16 09:23; Admin Dose 10 MG; Start 11/19/16 at 17:00 Famotidine (Pepcid Iv) 20 mg DAILY IV Last administered on 12/05/16 08:59; Admin Dose 20 MG; Start 11/19/16 at 17:00 Insulin Aspart (Novolog Insulin Pen) NOVOLOG *MODERATE* ALGORI... Q4 SC Last administered on 12/04/16 17:44; Admin Dose 2 UNIT; Start 11/19/16 at 17:30 Miscellaneous Information 1 ea NOTE XX ; Start 11/19/16 at 17:30 Glucose (Glutose) 15 gm Q15M PRN PO DECREASED GLUCOSE; Start 11/19/16 at 17:30 Glucose (Glutose) 22.5 gm Q15M PRN PO DECREASED GLUCOSE; Start 11/19/16 at 17: 30 Dextrose (D50w Syringe) 25 ml Q15M PRN IV DECREASED GLUCOSE Last administered on 12/03/16 20:15; Admin Dose 25 ML; Start 11/19/16 at 17:30 Dextrose (D50w Syringe) 50 ml Q15M PRN IV DECREASED GLUCOSE; Start 11/19/16 at 17:30 Glucagon (Glucagen) 1 mg Q15M PRN IM DECREASED GLUCOSE; Start 11/19/16 at 17:30 Glucose 15 gm 15 gm Q15M PRN BUCCAL DECREASED GLUCOSE; Start 11/19/16 at 17:30 Norepinephrine/ Dextrose (Levophed/D5W) 500 ml @ 1.875 mls/ hr TITRATE IV Last administered on 11/22/16 01:11; Admin Dose 7.5 MLS/HR; Start 11/20/16 at 19:30 Atorvastatin Calcium (Lipitor) 10 mg HS NGT Last administered on 12/04/16 20: 40; Admin Dose 10 MG; Start 11/24/16 at 21:00 Mupirocin (Bactroban) 1 applic BID TOP Last administered on 12/05/16 09:00; Admin Dose 1 APPLIC; Start 11/27/16 at 09:30 Insulin Glargine (Lantus) 20 unit DAILY@20 SC Last administered on 12/04/16 20 :46; Admin Dose 20 UNIT; Start 11/27/16 at 20:00 Propranolol HCl 10 mg 10 mg TID PO Last administered on 12/04/16 12:13; Admin Dose 10 MG; Start 11/27/16 at 21:00 Linezolid (Zyvox 600mg/D5W (Pmx)) 300 ml @ 300 mls/hr Q12 IVPB Last administered on 12/05/16 08:53; Admin Dose 300 MLS/HR; Start 11/28/16 at 11:00 Thiamine HCl (Vitamin B1) 100 mg DAILY IV Last administered on 12/05/16 08:59 ; Admin Dose 100 MG; Start 11/29/16 at 10:00 Folic Acid (Folic Acid) 1 mg DAILY NGT Last administered on 12/05/16 08:59; Admin Dose 1 MG; Start 11/29/16 at 10:00 Multivitamins (Multivitamin) 30 ml DAILY NGT Last administered on 12/05/16 08: 59; Admin Dose 30 ML; Start 11/29/16 at 10:30 Hydralazine HCl (Apresoline) 10 mg Q2 PRN IV For SBP >170; Start 12/04/16 at 00 :00 Amiodarone HCl (Cordarone) 400 mg BID GTB Last administered on 12/05/16 09:38 ; Admin Dose 400 MG; Start 12/04/16 at 21:00 FÁTIMA PERES MD Dec 05, 2016 17:17
--- NOTE | 2016-12-05 17:33 | PN ---
Date/Time of Note Date/Time of Note DATE: 12/05/16 TIME: 17:30 Assessment/Plan VTE Prophylaxis VTE Prophylaxis Intervention: SCD's Lines/Catheters IV [facility]from [facility] Central Line Central line still needed: No Urinary Cath still in place: Yes (critical illness) Reason Cath still needed: other (indicate) Assessment/Plan Chief Complaint/Hosp Course ASSESSMENT AND PLAN: 1. Status post ST elevation myocardial infarction, status post cardiac arrest secondary to ventricular tachycardia secondary to above. 2. Status post percutaneous coronary intervention of left circumflex artery. 3. Renal failure. Appears to be acute on chronic. Currently has improved significantly. 4. Congestive heart failure. 5. Recurrence of sustained ventricular tachycardia. 6. Paroxysmal atrial fibrillation. 7. Severe encephalopathy. 8. Dyslipidemia. 9. Hypertension, ____ hypotensive. RECOMMENDATIONS: We will continue with the respiratory care. Weaning as tolerated will be attempted again. Would cont amiodarone to 400 b.i.d. Code status DNR though. Continue with the ICU care. dec sedation and monitor More than 38 minutes of critical care time was spent managing this patient excluding procedures. Problems: Subjective 24 Hr Interval Summary Free Text/Dictation d/w staff and rhythm was reviewed. pt remains in NSR now. pt is still intubated and nonresponsive in ICU. D/W PULM consultants as well Exam/Review of Systems Vital Signs Vitals Vital Signs Date Time Temp Pulse Resp B/P Pulse Ox O2 Delivery O2 Flow Rate FiO2 12/05/16 16:00 98.2 54 21 125/77 100 Mechanical Ventilator 12/05/16 11:16 30 Intake and Output 12/04/16 12/04/16 12/05/16 15:00 23:00 07:00 Intake Total 946.72 ml 888.174 ml 821.088 ml Output Total 380 ml 925 ml 1000 ml Balance 566.72 ml -36.826 ml -178.912 ml Exam HEENT: Normocephalic, atraumatic. Obese gentleman. Pupils equal and round. s/p intubation on vent. NECK: Supple. No stridor status post intubation on the vent. CARDIOVASCULAR: Regular rate and rhythm. GASTROINTESTINAL: Obese, soft, nontender. PULMONARY: Anteriorly with no wheezes. EXTREMITIES: With trivial edema. NEUROLOGIC: Does not respond to verbal stimuli. Opens his eyes spontaneously, but does not appear to be following any commands though. Results Result Diagram: 12/04/16 0420 12/05/16 0520 Results 24 hrs Laboratory Tests Test 12/04/16 20:40 12/05/16 00:34 12/05/16 05:08 12/05/16 05:17 Bedside Glucose 125 124 79 121 Test 12/05/16 05:20 12/05/16 08:43 12/05/16 12:26 Sodium Level 144 Potassium Level 3.9 Chloride Level 109 Carbon Dioxide Level 25 Anion Gap 14 Blood Urea Nitrogen 25 H Creatinine 1.52 H Glucose Level 120 Calcium Level 9.5 Magnesium Level 2.1 Total Bilirubin 0.2 Direct Bilirubin 0.00 Indirect Bilirubin 0.2 Aspartate Amino Transf (AST/SGOT) 43 Alanine Aminotransferase (ALT/SGPT) 84 H Alkaline Phosphatase 101 B-Type Natriuretic Peptide 7120 H Total Protein 6.2 Albumin 3.1 L Globulin 3.10 Albumin/Globulin Ratio 1.00 Bedside Glucose 92 104 Medications Medications Current Medications Aspirin (Halfprin) 81 mg DAILY PO Last administered on 12/05/16 08:59; Admin Dose 81 MG; Start 11/20/16 at 09:00 Ticagrelor 90 mg 90 mg BID PO Last administered on 12/05/16 08:57; Admin Dose 90 MG; Start 11/19/16 at 21:00 Propofol 100 ml @ 3.818 mls/ hr Q12H IV Last administered on 12/05/16 02:15; Admin Dose 7.636 MLS/HR; Start 11/19/16 at 16:30 Fentanyl (Sublimaze) 100 ml @ 2.5 mls/hr TITRATE IV Last administered on 02:15; Admin Dose 5 MLS/HR; Start 11/19/16 at 17:00 Ondansetron HCl (Zofran Inj) 4 mg Q6H PRN IV NAUSEA AND/OR VOMITING; Start 04/27 at 17:00 Acetaminophen (Tylenol Liquid) 650 mg Q6H PRN PO PAIN LEVEL 1-3 OR FEVER; Start 11/19/16 at 17:00 Acetaminophen (Tylenol Supp) 650 mg Q4H PRN [place] PAIN LEVEL 1-3 OR FEVER; Start 11/19/16 at 17:00 Docusate Sodium (Colace) 100 mg Q12H PRN PO CONSTIPATION; Start 11/19/16 at 17: 00 Magnesium Hydroxide (Milk Of Mag) 30 ml DAILY PRN PO CONSTIPATION Last administered on 11/29/16 09:23; Admin Dose 30 ML; Start 11/19/16 at 17:00 Bisacodyl (Dulcolax Supp) 10 mg DAILY PRN [place] CONSTIPATION Last administered on 11/29/16 09:23; Admin Dose 10 MG; Start 11/19/16 at 17:00 Famotidine (Pepcid Iv) 20 mg DAILY IV Last administered on 12/05/16 08:59; Admin Dose 20 MG; Start 11/19/16 at 17:00 Insulin Aspart (Novolog Insulin Pen) NOVOLOG *MODERATE* ALGORI... Q4 SC Last administered on 12/04/16 17:44; Admin Dose 2 UNIT; Start 11/19/16 at 17:30 Miscellaneous Information 1 ea NOTE XX ; Start 11/19/16 at 17:30 Glucose (Glutose) 15 gm Q15M PRN PO DECREASED GLUCOSE; Start 11/19/16 at 17:30 Glucose (Glutose) 22.5 gm Q15M PRN PO DECREASED GLUCOSE; Start 11/19/16 at 17: 30 Dextrose (D50w Syringe) 25 ml Q15M PRN IV DECREASED GLUCOSE Last administered on 12/03/16 20:15; Admin Dose 25 ML; Start 11/19/16 at 17:30 Dextrose (D50w Syringe) 50 ml Q15M PRN IV DECREASED GLUCOSE; Start 11/19/16 at 17:30 Glucagon (Glucagen) 1 mg Q15M PRN IM DECREASED GLUCOSE; Start 11/19/16 at 17:30 Glucose 15 gm 15 gm Q15M PRN BUCCAL DECREASED GLUCOSE; Start 11/19/16 at 17:30 Norepinephrine/ Dextrose (Levophed/D5W) 500 ml @ 1.875 mls/ hr TITRATE IV Last administered on 11/22/16 01:11; Admin Dose 7.5 MLS/HR; Start 11/20/16 at 19:30 Atorvastatin Calcium (Lipitor) 10 mg HS NGT Last administered on 12/04/16 20: 40; Admin Dose 10 MG; Start 11/24/16 at 21:00 Mupirocin (Bactroban) 1 applic BID TOP Last administered on 12/05/16 09:00; Admin Dose 1 APPLIC; Start 11/27/16 at 09:30 Insulin Glargine (Lantus) 20 unit DAILY@20 SC Last administered on 12/04/16 20 :46; Admin Dose 20 UNIT; Start 11/27/16 at 20:00 Propranolol HCl 10 mg 10 mg TID PO Last administered on 12/04/16 12:13; Admin Dose 10 MG; Start 11/27/16 at 21:00 Linezolid (Zyvox 600mg/D5W (Pmx)) 300 ml @ 300 mls/hr Q12 IVPB Last administered on 12/05/16 08:53; Admin Dose 300 MLS/HR; Start 11/28/16 at 11:00 Thiamine HCl (Vitamin B1) 100 mg DAILY IV Last administered on 12/05/16 08:59 ; Admin Dose 100 MG; Start 11/29/16 at 10:00 Folic Acid (Folic Acid) 1 mg DAILY NGT Last administered on 12/05/16 08:59; Admin Dose 1 MG; Start 11/29/16 at 10:00 Multivitamins (Multivitamin) 30 ml DAILY NGT Last administered on 12/05/16 08: 59; Admin Dose 30 ML; Start 11/29/16 at 10:30 Hydralazine HCl (Apresoline) 10 mg Q2 PRN IV For SBP >170; Start 12/04/16 at 00 :00 Amiodarone HCl (Cordarone) 400 mg BID GTB Last administered on 12/05/16 09:38 ; Admin Dose 400 MG; Start 12/04/16 at 21:00 SERENA ALCARAZ MD Dec 05, 2016 17:33
[2016-12-05] MEDS: ATORVASTATIN 10 MG TAB NGT SCH (21:08)
[2016-12-05] MEDS: INSULIN GLARGINE [LANtus] 3 ML PEN SC SCH (21:26)
[2016-12-06] VITALS (29 sets, daily range): BP systolic 122–166; BP diastolic 71–114; PULSE 47–71; RESP 12–23
[2016-12-06] MEDS: INSULIN ASPART [NOVOLOG] 3 ML PEN SC SCH ×6 (01:00→20:00)
[2016-12-06] MEDS: PROPOFOL 100 ML IV SCH ×2 (04:30→16:10)
[2016-12-06 06:57] LABS: ADD SCAN DIFF NO
[2016-12-06 07:08] LABS: BASOPHIL # 0.1 10^3/ul (0.0-0.1); EOSINOPHILS # 0.4 10^3/ul (0.0-0.5); EOSINOPHILS % 3.3 % (0.0-7.0); HEMATOCRIT 32.8 % (42.0-52.0); HEMOGLOBIN 10.3 g/dl (14.0-18.0); LYMPHOCYTES # 2.3 10^3/ul (0.8-2.9); LYMPHOCYTES % 18.4 % (15.0-51.0); MEAN CORPUSCULAR HEMOGLOBIN 29.9 pg (29.0-33.0); MEAN CORPUSCULAR HGB CONC 31.4 g/dl (32.0-37.0); MEAN CORPUSCULAR VOLUME 95.3 fl (82.0-101.0); MEAN PLATELET VOLUME 11.1 fl (7.4-10.4); MONOCYTE # 0.9 10^3/ul (0.3-0.9); NEUTROPHIL # 8.5 10^3/ul (1.6-7.5); NEUTROPHILS % 69.7 % (39.0-77.0); PLATELET COUNT 313 10^3/UL (140-415); RED BLOOD COUNT 3.44 10^6/ul (4.70-6.10); RED CELL DISTRIBUTION WIDTH 15.5 % (11.5-14.5); WHITE BLOOD COUNT 12.2 10^3/ul (4.8-10.8)
[2016-12-06 07:32] LABS: CALCIUM 9.6 mg/dl (8.4-10.2); CREATININE 1.48 mg/dl (0.61-1.24); POTASSIUM 3.8 mmol/L (3.5-5.1)
[2016-12-06] MEDS ORDERED: POTASSIUM CHLORIDE (SR) 20 MEQ TAB PO STA (07:47)
[2016-12-06] MEDS ORDERED: FUROSEMIDE 20 MG INJ IV ONE (08:00)
[2016-12-06] MEDS: ASPIRIN (EC) 81 MG TAB PO SCH (08:15)
[2016-12-06] MEDS: MULTIVITAMINS 30 ML CUP NGT SCH (08:15)
[2016-12-06] MEDS: AMIODARONE 200 MG TAB GTB SCH ×2 (08:16→20:00)
[2016-12-06] MEDS: FOLIC ACID 1 MG TAB NGT SCH (08:16)
[2016-12-06] MEDS: TICAGRELOR 90 MG TABLET PO SCH ×2 (08:19→20:01)
--- NOTE | 2016-12-06 08:21 | RADRPT ---
PROCEDURE: XR Chest. CLINICAL INDICATION: Shortness of breath. ST elevated myocardial infarction. TECHNIQUE: Single frontal view. COMPARISON: 12/04/2016. FINDINGS: The endotracheal tube, nasogastric tube, and right internal jugular vein catheter remain in satisfac tory position. There is mild pulmonary edema and bibasilar atelectasis, unchanged. The heart is enlarged. There is no pleural effusion. There is no pneumothorax. IMPRESSION: 1. No change from 12/04/2016. RPTAT: QQ .Fernando Lowe MD, MD Date Time Electronically viewed and signed by .Fernando Lowe MD, MD on 12/06/2016 08:21 .R/
[2016-12-06] MEDS: LINEZOLID 600 MG/D5W (PMX) 300 ML IVPB SCH ×2 (08:54→20:36)
[2016-12-06] MEDS: FAMOTIDINE 20 MG INJ IV SCH (08:54)
--- NOTE | 2016-12-06 09:11 | PN ---
Date/Time of Note Date/Time of Note DATE: 12/06/16 TIME: 09:08 Assessment/Plan VTE Prophylaxis VTE Prophylaxis Intervention: LMWH, other Lines/Catheters IV Catheter Type (from Nrs): Central Line Central line still needed: Yes Urinary Cath still in place: Yes Reason Cath still needed: other (indicate) Assessment/Plan Chief Complaint/Hosp Course ASSESSMENT AND PLAN: 1. Status post ST elevation myocardial infarction, status post cardiac arrest secondary to ventricular tachycardia secondary to above. 2. Status post percutaneous coronary intervention of left circumflex artery. 3. Renal failure. Appears to be acute on chronic. Currently has improved significantly. 4. Congestive heart failure. 5. Recurrence of sustained ventricular tachycardia. 6. Paroxysmal atrial fibrillation. 7. Severe encephalopathy. 8. Dyslipidemia. 9. Hypertension, RECOMMENDATIONS: We will continue with the respiratory care. Weaning as tolerated will be attempted again. Would cont amiodarone to 400 b.i.d. Code status DNR though. Continue with the ICU care. off of sedation now. lasix and K today will change to coreg will consider adding NORMA-I tomorrow if able to tolerate it. More than 36 minutes of critical care time was spent managing this patient excluding procedures. Problems: Subjective 24 Hr Interval Summary Free Text/Dictation d/ wstaff and rhythm was reviewed pt remains in NSR. no more Afib. he is off of sedation now. BP has remained stable nonverbal Subjective hx not possible: pt non-verbal Exam/Review of Systems Vital Signs Vitals Vital Signs Date Time Temp Pulse Resp B/P Pulse Ox O2 Delivery O2 Flow Rate FiO2 12/06/16 08:47 64 17 100 30 12/06/16 08:00 151/91 Mechanical Ventilator 12/06/16 07:00 98.5 Intake and Output 12/05/16 12/05/16 12/06/16 15:00 23:00 07:00 Intake Total 634.749 ml 300 ml 0 ml Output Total 1075 ml 1025 ml 465 ml Balance -440.251 ml -725 ml -465 ml Exam HEENT: Normocephalic, atraumatic. Obese gentleman. Pupils equal and round. s/p intubation on vent. NECK: Supple. No stridor status post intubation on the vent. CARDIOVASCULAR: Regular rate and rhythm. GASTROINTESTINAL: Obese, soft, nontender. PULMONARY: Anteriorly with no wheezes. EXTREMITIES: With trivial edema. NEUROLOGIC: responds to simple verbal stimuli now. Opens his eyes spontaneously, pysch: calm now. Results Result Diagram: 12/06/16 0500 12/06/16 0500 Results 24 hrs Laboratory Tests Test 12/05/16 12:26 12/05/16 18:03 12/05/16 21:06 12/06/16 00:48 Bedside Glucose 104 102 100 105 Test 12/06/16 05:00 12/06/16 06:23 White Blood Count 12.2 H Red Blood Count 3.44 L Hemoglobin 10.3 L Hematocrit 32.8 L Mean Corpuscular Volume 95.3 Mean Corpuscular Hemoglobin 29.9 Mean Corpuscular Hemoglobin Concent 31.4 L Red Cell Distribution Width 15.5 H Platelet Count 313 Mean Platelet Volume 11.1 H Neutrophils % 69.7 Lymphocytes % 18.4 Monocytes % 7.0 Eosinophils % 3.3 Basophils % 1.0 Nucleated Red Blood Cells % 0.0 Neutrophils # 8.5 H Lymphocytes # 2.3 Monocytes # 0.9 Eosinophils # 0.4 Basophils # 0.1 Nucleated Red Blood Cells # 0.0 Sodium Level 144 Potassium Level 3.8 Chloride Level 110 Carbon Dioxide Level 25 Anion Gap 13 Blood Urea Nitrogen 21 H Creatinine 1.48 H Glucose Level 95 Calcium Level 9.6 Bedside Glucose 89 Medications Medications Current Medications Aspirin (Halfprin) 81 mg DAILY PO Last administered on 12/06/16 08:15; Admin Dose 81 MG; Start 11/20/16 at 09:00 Ticagrelor 90 mg 90 mg BID PO Last administered on 12/06/16 08:19; Admin Dose 90 MG; Start 11/19/16 at 21:00 Propofol 100 ml @ 3.818 mls/ hr Q12H IV Last administered on 12/05/16 02:15; Admin Dose 7.636 MLS/HR; Start 11/19/16 at 16:30 Fentanyl (Sublimaze) 100 ml @ 2.5 mls/hr TITRATE IV Last administered on 02:15; Admin Dose 5 MLS/HR; Start 11/19/16 at 17:00 Ondansetron HCl (Zofran Inj) 4 mg Q6H PRN IV NAUSEA AND/OR VOMITING; Start 04/27 at 17:00 Acetaminophen (Tylenol Liquid) 650 mg Q6H PRN PO PAIN LEVEL 1-3 OR FEVER; Start 11/19/16 at 17:00 Acetaminophen (Tylenol Supp) 650 mg Q4H PRN [place] PAIN LEVEL 1-3 OR FEVER; Start 11/19/16 at 17:00 Docusate Sodium (Colace) 100 mg Q12H PRN PO CONSTIPATION; Start 11/19/16 at 17: 00 Magnesium Hydroxide (Milk Of Mag) 30 ml DAILY PRN PO CONSTIPATION Last administered on 11/29/16 09:23; Admin Dose 30 ML; Start 11/19/16 at 17:00 Bisacodyl (Dulcolax Supp) 10 mg DAILY PRN [place] CONSTIPATION Last administered on 11/29/16 09:23; Admin Dose 10 MG; Start 11/19/16 at 17:00 Famotidine (Pepcid Iv) 20 mg DAILY IV Last administered on 12/06/16 08:54; Admin Dose 20 MG; Start 11/19/16 at 17:00 Insulin Aspart (Novolog Insulin Pen) NOVOLOG *MODERATE* ALGORI... Q4 SC Last administered on 12/04/16 17:44; Admin Dose 2 UNIT; Start 11/19/16 at 17:30 Miscellaneous Information 1 ea NOTE XX ; Start 11/19/16 at 17:30 Glucose (Glutose) 15 gm Q15M PRN PO DECREASED GLUCOSE; Start 11/19/16 at 17:30 Glucose (Glutose) 22.5 gm Q15M PRN PO DECREASED GLUCOSE; Start 11/19/16 at 17: 30 Dextrose (D50w Syringe) 25 ml Q15M PRN IV DECREASED GLUCOSE Last administered on 12/03/16 20:15; Admin Dose 25 ML; Start 11/19/16 at 17:30 Dextrose (D50w Syringe) 50 ml Q15M PRN IV DECREASED GLUCOSE; Start 11/19/16 at 17:30 Glucagon (Glucagen) 1 mg Q15M PRN IM DECREASED GLUCOSE; Start 11/19/16 at 17:30 Glucose 15 gm 15 gm Q15M PRN BUCCAL DECREASED GLUCOSE; Start 11/19/16 at 17:30 Norepinephrine/ Dextrose (Levophed/D5W) 500 ml @ 1.875 mls/ hr TITRATE IV Last administered on 11/22/16 01:11; Admin Dose 7.5 MLS/HR; Start 11/20/16 at 19:30 Atorvastatin Calcium (Lipitor) 10 mg HS NGT Last administered on 12/05/16 21: 08; Admin Dose 10 MG; Start 11/24/16 at 21:00 Mupirocin (Bactroban) 1 applic BID TOP Last administered on 12/05/16 21:10; Admin Dose 1 APPLIC; Start 11/27/16 at 09:30 Insulin Glargine 20 unit 20 unit DAILY@20 SC Last administered on 12/04/16 20: 46; Admin Dose 20 UNIT; Start 11/27/16 at 20:00 Linezolid (Zyvox 600mg/D5W (Pmx)) 300 ml @ 300 mls/hr Q12 IVPB Last administered on 12/06/16 08:54; Admin Dose 300 MLS/HR; Start 11/28/16 at 11:00 Thiamine HCl (Vitamin B1) 100 mg DAILY IV Last administered on 12/05/16 08:59 ; Admin Dose 100 MG; Start 11/29/16 at 10:00 Folic Acid (Folic Acid) 1 mg DAILY NGT Last administered on 12/06/16 08:16; Admin Dose 1 MG; Start 11/29/16 at 10:00 Multivitamins (Multivitamin) 30 ml DAILY NGT Last administered on 12/06/16 08: 15; Admin Dose 30 ML; Start 11/29/16 at 10:30 Hydralazine HCl (Apresoline) 10 mg Q2 PRN IV For SBP >170; Start 12/04/16 at 00 :00 Amiodarone HCl (Cordarone) 400 mg BID GTB Last administered on 12/06/16 08:16 ; Admin Dose 400 MG; Start 12/04/16 at 21:00 Carvedilol (Coreg) 3.125 mg BID NGT Last administered on 12/06/16 08:16; Admin Dose 3.125 MG; Start 12/06/16 at 09:00 SERENA ALCARAZ MD Dec 06, 2016 09:11
[2016-12-06] MEDS: MUPIROCIN 2% 22 GM OINT TOP SCH ×2 (09:23→20:36)
[2016-12-06] MEDS: THIAMINE 200 MG INJ IV SCH (09:26)
--- NOTE | 2016-12-06 09:46 | CONS ---
Date/Time of Note Date/Time of Note DATE: 12/06/16 TIME: 09:42 Assessment/Plan Assessment/Plan Additional Assessment/Plan Ventilator setting; AC of 20, tidal volume 500, PEEP of 5, 30% FiO2. Patient has been off sedation for the last 48 hours. Chest x-ray was reviewed from today which is essentially clear. Assessment recommendations; 1. Patient admitted with cardiac arrest status post CPR 2 with possibility of anoxic brain injury however there is been marked improvement in mental status over the last 24 hours. 2. Pneumonia with marked radiological clearance. 3. Renal injury, with continually improving serum creatinine. 4. Status post coronary intervention with stenting of circumflex lesion. 5. History of hypertension and diabetes. 6. History of alcohol abuse. Patient had been switched over to CPAP mode currently has excellent weaning parameters. Obtain a blood gas and if the weaning parameters are met patient will be extubated. Meanwhile continue current treatment. 35 minutes of critical care time was spent evaluating the patient. Consultation Date/Type/Reason Admit Date/Time Nov 19, 2016 at 16:09 Type of Consultation: Pulmonary/critical care Referring Provider: PIO VEGA 24 HR Interval Summary Free Text/Dictation Patient condition remains critical but stable the patient mental status is markedly improved over the last 24 hours. To the point where the patient is now awake and follows commands and answers questions appropriately by eye blinking and head nodding. General exam; middle-aged male, morbidly obese, orally intubated, currently in no distress awake alert. Exam/Review of Systems Vital Signs Vitals Vital Signs Date Time Temp Pulse Resp B/P Pulse Ox O2 Delivery O2 Flow Rate FiO2 12/06/16 08:47 64 17 100 30 12/06/16 08:00 151/91 Mechanical Ventilator 12/06/16 07:00 98.5 Intake and Output 12/05/16 12/05/16 12/06/16 15:00 23:00 07:00 Intake Total 634.749 ml 300 ml 0 ml Output Total 1075 ml 1025 ml 465 ml Balance -440.251 ml -725 ml -465 ml Exam HEENT exam; supple neck, no JVD. No lymphadenopathy. Midline trachea. No thyromegaly. Orally intubated. Patient is edentulous. Pupils are small bilaterally. Chest exam; clear to auscultation. S1-S2 audible, no murmurs. Regular rhythm. Abdomen exam; soft, protuberant. Bowel sounds audible. No organomegaly. Extremity exam; no peripheral edema. Pulses 1+ bilaterally. 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 Results Result Diagram: 12/06/16 0500 12/06/16 0500 Results 24 hrs Laboratory Tests Test 12/05/16 12:26 12/05/16 18:03 12/05/16 21:06 12/06/16 00:48 Bedside Glucose 104 102 100 105 Test 12/06/16 05:00 12/06/16 06:23 12/06/16 09:24 White Blood Count 12.2 H Red Blood Count 3.44 L Hemoglobin 10.3 L Hematocrit 32.8 L Mean Corpuscular Volume 95.3 Mean Corpuscular Hemoglobin 29.9 Mean Corpuscular Hemoglobin Concent 31.4 L Red Cell Distribution Width 15.5 H Platelet Count 313 Mean Platelet Volume 11.1 H Neutrophils % 69.7 Lymphocytes % 18.4 Monocytes % 7.0 Eosinophils % 3.3 Basophils % 1.0 Nucleated Red Blood Cells % 0.0 Neutrophils # 8.5 H Lymphocytes # 2.3 Monocytes # 0.9 Eosinophils # 0.4 Basophils # 0.1 Nucleated Red Blood Cells # 0.0 Sodium Level 144 Potassium Level 3.8 Chloride Level 110 Carbon Dioxide Level 25 Anion Gap 13 Blood Urea Nitrogen 21 H Creatinine 1.48 H Glucose Level 95 Calcium Level 9.6 Bedside Glucose 89 126 Medications Medications Current Medications Aspirin (Halfprin) 81 mg DAILY PO Last administered on 12/06/16 08:15; Admin Dose 81 MG; Start 11/20/16 at 09:00 Ticagrelor 90 mg 90 mg BID PO Last administered on 12/06/16 08:19; Admin Dose 90 MG; Start 11/19/16 at 21:00 Propofol 100 ml @ 3.818 mls/ hr Q12H IV Last administered on 12/05/16 02:15; Admin Dose 7.636 MLS/HR; Start 11/19/16 at 16:30 Fentanyl (Sublimaze) 100 ml @ 2.5 mls/hr TITRATE IV Last administered on 02:15; Admin Dose 5 MLS/HR; Start 11/19/16 at 17:00 Ondansetron HCl (Zofran Inj) 4 mg Q6H PRN IV NAUSEA AND/OR VOMITING; Start 04/27 at 17:00 Acetaminophen (Tylenol Liquid) 650 mg Q6H PRN PO PAIN LEVEL 1-3 OR FEVER; Start 11/19/16 at 17:00 Acetaminophen (Tylenol Supp) 650 mg Q4H PRN [place] PAIN LEVEL 1-3 OR FEVER; Start 11/19/16 at 17:00 Docusate Sodium (Colace) 100 mg Q12H PRN PO CONSTIPATION; Start 11/19/16 at 17: 00 Magnesium Hydroxide (Milk Of Mag) 30 ml DAILY PRN PO CONSTIPATION Last administered on 11/29/16 09:23; Admin Dose 30 ML; Start 11/19/16 at 17:00 Bisacodyl (Dulcolax Supp) 10 mg DAILY PRN [place] CONSTIPATION Last administered on 11/29/16 09:23; Admin Dose 10 MG; Start 11/19/16 at 17:00 Famotidine (Pepcid Iv) 20 mg DAILY IV Last administered on 12/06/16 08:54; Admin Dose 20 MG; Start 11/19/16 at 17:00 Insulin Aspart (Novolog Insulin Pen) NOVOLOG *MODERATE* ALGORI... Q4 SC Last administered on 12/04/16 17:44; Admin Dose 2 UNIT; Start 11/19/16 at 17:30 Miscellaneous Information 1 ea NOTE XX ; Start 11/19/16 at 17:30 Glucose (Glutose) 15 gm Q15M PRN PO DECREASED GLUCOSE; Start 11/19/16 at 17:30 Glucose (Glutose) 22.5 gm Q15M PRN PO DECREASED GLUCOSE; Start 11/19/16 at 17: 30 Dextrose (D50w Syringe) 25 ml Q15M PRN IV DECREASED GLUCOSE Last administered on 12/03/16 20:15; Admin Dose 25 ML; Start 11/19/16 at 17:30 Dextrose (D50w Syringe) 50 ml Q15M PRN IV DECREASED GLUCOSE; Start 11/19/16 at 17:30 Glucagon (Glucagen) 1 mg Q15M PRN IM DECREASED GLUCOSE; Start 11/19/16 at 17:30 Glucose 15 gm 15 gm Q15M PRN BUCCAL DECREASED GLUCOSE; Start 11/19/16 at 17:30 Norepinephrine/ Dextrose (Levophed/D5W) 500 ml @ 1.875 mls/ hr TITRATE IV Last administered on 11/22/16 01:11; Admin Dose 7.5 MLS/HR; Start 11/20/16 at 19:30 Atorvastatin Calcium (Lipitor) 10 mg HS NGT Last administered on 12/05/16 21: 08; Admin Dose 10 MG; Start 11/24/16 at 21:00 Mupirocin (Bactroban) 1 applic BID TOP Last administered on 12/06/16 09:23; Admin Dose 1 APPLIC; Start 11/27/16 at 09:30 Insulin Glargine 20 unit 20 unit DAILY@20 SC Last administered on 12/04/16 20: 46; Admin Dose 20 UNIT; Start 11/27/16 at 20:00 Linezolid (Zyvox 600mg/D5W (Pmx)) 300 ml @ 300 mls/hr Q12 IVPB Last administered on 12/06/16 08:54; Admin Dose 300 MLS/HR; Start 11/28/16 at 11:00 Thiamine HCl (Vitamin B1) 100 mg DAILY IV Last administered on 12/06/16 09:26 ; Admin Dose 100 MG; Start 11/29/16 at 10:00 Folic Acid (Folic Acid) 1 mg DAILY NGT Last administered on 12/06/16 08:16; Admin Dose 1 MG; Start 11/29/16 at 10:00 Multivitamins (Multivitamin) 30 ml DAILY NGT Last administered on 12/06/16 08: 15; Admin Dose 30 ML; Start 11/29/16 at 10:30 Hydralazine HCl (Apresoline) 10 mg Q2 PRN IV For SBP >170; Start 12/04/16 at 00 :00 Amiodarone HCl (Cordarone) 400 mg BID GTB Last administered on 12/06/16 08:16 ; Admin Dose 400 MG; Start 12/04/16 at 21:00 Carvedilol (Coreg) 3.125 mg BID NGT Last administered on 12/06/16 08:16; Admin Dose 3.125 MG; Start 12/06/16 at 09:00 ELEONORA LEWIS 28, 2017 09:46
--- NOTE | 2016-12-06 11:07 | PN ---
Date/Time of Note Date/Time of Note DATE: 12/06/16 TIME: 11:02 Assessment/Plan VTE Prophylaxis VTE Prophylaxis Intervention: SCD's Lines/Catheters IV Catheter Type (from Nrsg): Central Line Central line still needed: Yes (attempt to remove today) Urinary Cath still in place: Yes Reason Cath still needed: other (indicate) Assessment/Plan Assessment/Plan 1. cards; s/p v tach arrest and cpr x2 (b) stemi, s/p pci cont asa and brilinta (c) paroxysmal a fib, will likely require d/c asa and add anticoagulattion; defer to cardiology (d) cardiomyopathy, cont spot lasix 2. resp failure now off vent, cont supplemental O2 3. neurO: numerous infarcts noted on mri (b) possible anoxic encephalopathy 4. renal ckd, acute renal failure resolved 5. obtain swallow eval Subjective 24 Hr Interval Summary Free Text/Dictation somnolent, arouseable extubated will answer some questions Exam/Review of Systems Vital Signs Vitals Vital Signs Date Time Temp Pulse Resp B/P Pulse Ox O2 Delivery O2 Flow Rate FiO2 12/06/16 10:22 100 4.0 12/06/16 10:21 60 12/06/16 10:00 16 131/83 Mechanical Ventilator 12/06/16 08:47 30 12/06/16 07:00 98.5 Intake and Output 12/05/16 12/05/16 12/06/16 14:59 22:59 06:59 Intake Total 687.385 ml 300 ml 0 ml Output Total 875 ml 1185 ml 555 ml Balance -187.615 ml -885 ml -555 ml Exam Respiratory: clear to auscultation Cardiovascular: regular rate and rhythm Gastrointestinal: non-tender, soft Extremities: edema Results Result Diagram: 12/06/16 0500 12/06/16 0500 Results 24 hrs Laboratory Tests Test 12/05/16 12:26 12/05/16 18:03 12/05/16 21:06 12/06/16 00:48 Bedside Glucose 104 102 100 105 Test 12/06/16 05:00 12/06/16 06:23 12/06/16 09:24 White Blood Count 12.2 H Red Blood Count 3.44 L Hemoglobin 10.3 L Hematocrit 32.8 L Mean Corpuscular Volume 95.3 Mean Corpuscular Hemoglobin 29.9 Mean Corpuscular Hemoglobin Concent 31.4 L Red Cell Distribution Width 15.5 H Platelet Count 313 Mean Platelet Volume 11.1 H Neutrophils % 69.7 Lymphocytes % 18.4 Monocytes % 7.0 Eosinophils % 3.3 Basophils % 1.0 Nucleated Red Blood Cells % 0.0 Neutrophils # 8.5 H Lymphocytes # 2.3 Monocytes # 0.9 Eosinophils # 0.4 Basophils # 0.1 Nucleated Red Blood Cells # 0.0 Sodium Level 144 Potassium Level 3.8 Chloride Level 110 Carbon Dioxide Level 25 Anion Gap 13 Blood Urea Nitrogen 21 H Creatinine 1.48 H Glucose Level 95 Calcium Level 9.6 Bedside Glucose 89 126 Medications Medications Current Medications Aspirin (Halfprin) 81 mg DAILY PO Last administered on 12/06/16 08:15; Admin Dose 81 MG; Start 11/20/16 at 09:00 Ticagrelor 90 mg 90 mg BID PO Last administered on 12/06/16 08:19; Admin Dose 90 MG; Start 11/19/16 at 21:00 Propofol 100 ml @ 3.818 mls/ hr Q12H IV Last administered on 12/05/16 02:15; Admin Dose 7.636 MLS/HR; Start 11/19/16 at 16:30 Fentanyl (Sublimaze) 100 ml @ 2.5 mls/hr TITRATE IV Last administered on 02:15; Admin Dose 5 MLS/HR; Start 11/19/16 at 17:00 Ondansetron HCl (Zofran Inj) 4 mg Q6H PRN IV NAUSEA AND/OR VOMITING; Start 04/27 at 17:00 Acetaminophen (Tylenol Liquid) 650 mg Q6H PRN PO PAIN LEVEL 1-3 OR FEVER; Start 11/19/16 at 17:00 Acetaminophen (Tylenol Supp) 650 mg Q4H PRN [place] PAIN LEVEL 1-3 OR FEVER; Start 11/19/16 at 17:00 Docusate Sodium (Colace) 100 mg Q12H PRN PO CONSTIPATION; Start 11/19/16 at 17: 00 Magnesium Hydroxide (Milk Of Mag) 30 ml DAILY PRN PO CONSTIPATION Last administered on 11/29/16 09:23; Admin Dose 30 ML; Start 11/19/16 at 17:00 Bisacodyl (Dulcolax Supp) 10 mg DAILY PRN [place] CONSTIPATION Last administered on 11/29/16 09:23; Admin Dose 10 MG; Start 11/19/16 at 17:00 Famotidine (Pepcid Iv) 20 mg DAILY IV Last administered on 12/06/16 08:54; Admin Dose 20 MG; Start 11/19/16 at 17:00 Insulin Aspart (Novolog Insulin Pen) NOVOLOG *MODERATE* ALGORI... Q4 SC Last administered on 12/04/16 17:44; Admin Dose 2 UNIT; Start 11/19/16 at 17:30 Miscellaneous Information 1 ea NOTE XX ; Start 11/19/16 at 17:30 Glucose (Glutose) 15 gm Q15M PRN PO DECREASED GLUCOSE; Start 11/19/16 at 17:30 Glucose (Glutose) 22.5 gm Q15M PRN PO DECREASED GLUCOSE; Start 11/19/16 at 17: 30 Dextrose (D50w Syringe) 25 ml Q15M PRN IV DECREASED GLUCOSE Last administered on 12/03/16 20:15; Admin Dose 25 ML; Start 11/19/16 at 17:30 Dextrose (D50w Syringe) 50 ml Q15M PRN IV DECREASED GLUCOSE; Start 11/19/16 at 17:30 Glucagon (Glucagen) 1 mg Q15M PRN IM DECREASED GLUCOSE; Start 11/19/16 at 17:30 Glucose 15 gm 15 gm Q15M PRN BUCCAL DECREASED GLUCOSE; Start 11/19/16 at 17:30 Norepinephrine/ Dextrose (Levophed/D5W) 500 ml @ 1.875 mls/ hr TITRATE IV Last administered on 11/22/16 01:11; Admin Dose 7.5 MLS/HR; Start 11/20/16 at 19:30 Atorvastatin Calcium (Lipitor) 10 mg HS NGT Last administered on 12/05/16 21: 08; Admin Dose 10 MG; Start 11/24/16 at 21:00 Mupirocin (Bactroban) 1 applic BID TOP Last administered on 12/06/16 09:23; Admin Dose 1 APPLIC; Start 11/27/16 at 09:30 Insulin Glargine 20 unit 20 unit DAILY@20 SC Last administered on 12/04/16 20: 46; Admin Dose 20 UNIT; Start 11/27/16 at 20:00 Linezolid (Zyvox 600mg/D5W (Pmx)) 300 ml @ 300 mls/hr Q12 IVPB Last administered on 12/06/16 08:54; Admin Dose 300 MLS/HR; Start 11/28/16 at 11:00 Thiamine HCl (Vitamin B1) 100 mg DAILY IV Last administered on 12/06/16 09:26 ; Admin Dose 100 MG; Start 11/29/16 at 10:00 Folic Acid (Folic Acid) 1 mg DAILY NGT Last administered on 12/06/16 08:16; Admin Dose 1 MG; Start 11/29/16 at 10:00 Multivitamins (Multivitamin) 30 ml DAILY NGT Last administered on 12/06/16 08: 15; Admin Dose 30 ML; Start 11/29/16 at 10:30 Hydralazine HCl (Apresoline) 10 mg Q2 PRN IV For SBP >170; Start 12/04/16 at 00 :00 Amiodarone HCl (Cordarone) 400 mg BID GTB Last administered on 12/06/16 08:16 ; Admin Dose 400 MG; Start 12/04/16 at 21:00 Carvedilol (Coreg) 3.125 mg BID NGT Last administered on 12/06/16 08:16; Admin Dose 3.125 MG; Start 12/06/16 at 09:00 RODRIGO HENLEY MD Dec 06, 2016 11:07
[2016-12-06] MEDS ORDERED: FUROSEMIDE 40 MG INJ IV ONE (16:00)
--- NOTE | 2016-12-06 16:43 | CONS ---
Date/Time of Note Date/Time of Note DATE: 12/06/16 TIME: 16:40 Assessment/Plan Assessment/Plan Additional Assessment/Plan 1. Acute kidney injury on possible previous chronic kidney disease with last creatinine known about 1.48 secondary to acute tubular necrosis from ischemic acute tubular necrosis from cardiogenic shock.- Improving with good urine output 2. Acute respiratory failure from cardiogenic shock, currently intubated on ventilator-s/p extubation 12/06/16 3. Acute non-ST elevation myocardial infarction, s/p v tach arrest s/p pci of RCA, possible staged procedure to LCx required s/p IABP, now off 4. History of possible chronic kidney disease secondary to diabetic nephropathy , unknown stage. 5. History of type 2 diabetes mellitus. 6. History of hypertension. 7. paroxysmal atrial fibrillation Plan: s/p Extubation on 4 L, comfortable Cr1.48, making good urine output DNR, no indication for renal replacement therapy at this time Consultation Date/Type/Reason Admit Date/Time Nov 19, 2016 at 16:09 Initial Consult Date Nov Type of Consultation: NEPHROLOGY Referring Provider: PIO VEGA Exam/Review of Systems Vital Signs Vitals Vital Signs Date Time Temp Pulse Resp B/P Pulse Ox O2 Delivery O2 Flow Rate FiO2 12/06/16 16:32 2.0 12/06/16 16:00 98.8 70 19 146/88 100 Nasal Cannula 12/06/16 08:47 30 Intake and Output 12/05/16 12/05/16 12/06/16 15:00 23:00 07:00 Intake Total 634.749 ml 300 ml 0 ml Output Total 1075 ml 1025 ml 465 ml Balance -440.251 ml -725 ml -465 ml Exam GENERAL:s/p extubation, on 4 L NC, awake, NECK: supple, no JVD LUNGS: Bilateral crackles +no wheezing HEART: S1, S2, tachycardia, no murmur. ABDOMEN: Soft, morbidly obese. EXTREMITIES: 1 to 2+ pitting edema. No clubbing, cyanosis. + palmer catheter Results Result Diagram: 12/06/16 0500 12/06/16 0500 Results 24 hrs Laboratory Tests Test 12/05/16 18:03 12/05/16 21:06 12/06/16 00:48 12/06/16 05:00 Bedside Glucose 102 100 105 White Blood Count 12.2 H Red Blood Count 3.44 L Hemoglobin 10.3 L Hematocrit 32.8 L Mean Corpuscular Volume 95.3 Mean Corpuscular Hemoglobin 29.9 Mean Corpuscular Hemoglobin Concent 31.4 L Red Cell Distribution Width 15.5 H Platelet Count 313 Mean Platelet Volume 11.1 H Neutrophils % 69.7 Lymphocytes % 18.4 Monocytes % 7.0 Eosinophils % 3.3 Basophils % 1.0 Nucleated Red Blood Cells % 0.0 Neutrophils # 8.5 H Lymphocytes # 2.3 Monocytes # 0.9 Eosinophils # 0.4 Basophils # 0.1 Nucleated Red Blood Cells # 0.0 Sodium Level 144 Potassium Level 3.8 Chloride Level 110 Carbon Dioxide Level 25 Anion Gap 13 Blood Urea Nitrogen 21 H Creatinine 1.48 H Glucose Level 95 Calcium Level 9.6 Test 12/06/16 06:23 12/06/16 09:24 12/06/16 13:29 Bedside Glucose 89 126 97 Medications Medications Current Medications Aspirin (Halfprin) 81 mg DAILY PO Last administered on 12/06/16 08:15; Admin Dose 81 MG; Start 11/20/16 at 09:00 Ticagrelor 90 mg 90 mg BID PO Last administered on 12/06/16 08:19; Admin Dose 90 MG; Start 11/19/16 at 21:00 Propofol 100 ml @ 3.818 mls/ hr Q12H IV Last administered on 12/05/16 02:15; Admin Dose 7.636 MLS/HR; Start 11/19/16 at 16:30 Fentanyl (Sublimaze) 100 ml @ 2.5 mls/hr TITRATE IV Last administered on 02:15; Admin Dose 5 MLS/HR; Start 11/19/16 at 17:00 Ondansetron HCl (Zofran Inj) 4 mg Q6H PRN IV NAUSEA AND/OR VOMITING; Start 04/27 at 17:00 Acetaminophen (Tylenol Liquid) 650 mg Q6H PRN PO PAIN LEVEL 1-3 OR FEVER; Start 11/19/16 at 17:00 Acetaminophen (Tylenol Supp) 650 mg Q4H PRN [place] PAIN LEVEL 1-3 OR FEVER; Start 11/19/16 at 17:00 Docusate Sodium (Colace) 100 mg Q12H PRN PO CONSTIPATION; Start 11/19/16 at 17: 00 Magnesium Hydroxide (Milk Of Mag) 30 ml DAILY PRN PO CONSTIPATION Last administered on 11/29/16 09:23; Admin Dose 30 ML; Start 11/19/16 at 17:00 Bisacodyl (Dulcolax Supp) 10 mg DAILY PRN [place] CONSTIPATION Last administered on 11/29/16 09:23; Admin Dose 10 MG; Start 11/19/16 at 17:00 Famotidine (Pepcid Iv) 20 mg DAILY IV Last administered on 12/06/16 08:54; Admin Dose 20 MG; Start 11/19/16 at 17:00 Insulin Aspart (Novolog Insulin Pen) NOVOLOG *MODERATE* ALGORI... Q4 SC Last administered on 12/04/16 17:44; Admin Dose 2 UNIT; Start 11/19/16 at 17:30 Miscellaneous Information 1 ea NOTE XX ; Start 11/19/16 at 17:30 Glucose (Glutose) 15 gm Q15M PRN PO DECREASED GLUCOSE; Start 11/19/16 at 17:30 Glucose (Glutose) 22.5 gm Q15M PRN PO DECREASED GLUCOSE; Start 11/19/16 at 17: 30 Dextrose (D50w Syringe) 25 ml Q15M PRN IV DECREASED GLUCOSE Last administered on 12/03/16 20:15; Admin Dose 25 ML; Start 11/19/16 at 17:30 Dextrose (D50w Syringe) 50 ml Q15M PRN IV DECREASED GLUCOSE; Start 11/19/16 at 17:30 Glucagon (Glucagen) 1 mg Q15M PRN IM DECREASED GLUCOSE; Start 11/19/16 at 17:30 Glucose 15 gm 15 gm Q15M PRN BUCCAL DECREASED GLUCOSE; Start 11/19/16 at 17:30 Norepinephrine/ Dextrose (Levophed/D5W) 500 ml @ 1.875 mls/ hr TITRATE IV Last administered on 11/22/16 01:11; Admin Dose 7.5 MLS/HR; Start 11/20/16 at 19:30 Atorvastatin Calcium (Lipitor) 10 mg HS NGT Last administered on 12/05/16 21: 08; Admin Dose 10 MG; Start 11/24/16 at 21:00 Mupirocin (Bactroban) 1 applic BID TOP Last administered on 12/06/16 09:23; Admin Dose 1 APPLIC; Start 11/27/16 at 09:30 Insulin Glargine 20 unit 20 unit DAILY@20 SC Last administered on 12/04/16 20: 46; Admin Dose 20 UNIT; Start 11/27/16 at 20:00 Linezolid (Zyvox 600mg/D5W (Pmx)) 300 ml @ 300 mls/hr Q12 IVPB Last administered on 12/06/16 08:54; Admin Dose 300 MLS/HR; Start 11/28/16 at 11:00 Thiamine HCl (Vitamin B1) 100 mg DAILY IV Last administered on 12/06/16 09:26 ; Admin Dose 100 MG; Start 11/29/16 at 10:00 Folic Acid (Folic Acid) 1 mg DAILY NGT Last administered on 12/06/16 08:16; Admin Dose 1 MG; Start 11/29/16 at 10:00 Multivitamins (Multivitamin) 30 ml DAILY NGT Last administered on 12/06/16 08: 15; Admin Dose 30 ML; Start 11/29/16 at 10:30 Hydralazine HCl (Apresoline) 10 mg Q2 PRN IV For SBP >170; Start 12/04/16 at 00 :00 Amiodarone HCl (Cordarone) 400 mg BID GTB Last administered on 12/06/16 08:16 ; Admin Dose 400 MG; Start 12/04/16 at 21:00 Carvedilol (Coreg) 3.125 mg BID NGT Last administered on 12/06/16 08:16; Admin Dose 3.125 MG; Start 12/06/16 at 09:00 FÁTIMA PERES MD Dec 06, 2016 16:43
[2016-12-06] MEDS: INSULIN GLARGINE [LANtus] 3 ML PEN SC SCH (20:00)
[2016-12-06] MEDS: ATORVASTATIN 10 MG TAB NGT SCH (20:01)
[2016-12-06] MEDS: IPRATROPIUM (NEB) 0.5 MG/2.5 ML AMP HHN SCH (21:08)
[2016-12-07] VITALS (22 sets, daily range): BP systolic 139–164; BP diastolic 74–106; PULSE 60–95; RESP 12–24
[2016-12-07] MEDS: INSULIN ASPART [NOVOLOG] 3 ML PEN SC SCH ×6 (01:00→21:00)
[2016-12-07] MEDS: IPRATROPIUM (NEB) 0.5 MG/2.5 ML AMP HHN SCH ×4 (02:00→20:08)
[2016-12-07] MEDS: LEVALBUTEROL (NEB) 0.63 MG/3 ML AMP HHN SCH ×4 (02:00→20:08)
[2016-12-07] MEDS: PROPOFOL 100 ML IV SCH ×2 (04:14→16:06)
[2016-12-07 04:49] LABS: ADD SCAN DIFF NO
[2016-12-07 04:52] LABS: BASOPHIL # 0.1 10^3/ul (0.0-0.1); BASOPHILS % 1.2 % (0.0-2.0); EOSINOPHILS # 0.3 10^3/ul (0.0-0.5); EOSINOPHILS % 2.8 % (0.0-7.0); HEMATOCRIT 32.8 % (42.0-52.0); HEMOGLOBIN 10.5 g/dl (14.0-18.0); LYMPHOCYTES # 2.1 10^3/ul (0.8-2.9); LYMPHOCYTES % 19.8 % (15.0-51.0); MEAN CORPUSCULAR HEMOGLOBIN 29.7 pg (29.0-33.0); MEAN CORPUSCULAR VOLUME 92.9 fl (82.0-101.0); MEAN PLATELET VOLUME 10.7 fl (7.4-10.4); MONOCYTE # 0.8 10^3/ul (0.3-0.9); MONOCYTES % 7.4 % (0.0-11.0); NEUTROPHIL # 7.3 10^3/ul (1.6-7.5); NEUTROPHILS % 68.3 % (39.0-77.0); PLATELET COUNT 333 10^3/UL (140-415); RED BLOOD COUNT 3.53 10^6/ul (4.70-6.10); RED CELL DISTRIBUTION WIDTH 14.9 % (11.5-14.5); WHITE BLOOD COUNT 10.7 10^3/ul (4.8-10.8)
[2016-12-07 05:22] LABS: ALBUMIN 3.4 g/dl (3.3-4.9); ALBUMIN/GLOBULIN RATIO 1.03; BILIRUBIN,INDIRECT 0.3 mg/dl (0-1.1); BILIRUBIN,TOTAL 0.3 mg/dl (0.2-1.3); CALCIUM 9.8 mg/dl (8.4-10.2); CREATININE 1.39 mg/dl (0.61-1.24); MAGNESIUM 1.7 mg/dl (1.7-2.5); POTASSIUM 3.6 mmol/L (3.5-5.1); TOTAL PROTEIN 6.7 g/dl (6.1-8.1)
--- NOTE | 2016-12-07 07:15 | PN ---
Date/Time of Note Date/Time of Note DATE: 12/07/16 TIME: 07:09 Assessment/Plan VTE Prophylaxis VTE Prophylaxis Intervention: SCD's Lines/Catheters IV C[facility]ter Type (from [facility]): Central Line Central line still needed: Yes Urinary Cath still in place: Yes Reason Cath still needed: other (indicate) Assessment/Plan Chief Complaint/Hosp Course ASSESSMENT AND PLAN: 1. Status post ST elevation myocardial infarction, status post cardiac arrest secondary to ventricular tachycardia secondary to above. 2. Status post percutaneous coronary intervention of left circumflex artery. 3. Renal failure. Appears to be acute on chronic. Currently has improved significantly. 4. Congestive heart failure. 5. Recurrence of sustained ventricular tachycardia. 6. Paroxysmal atrial fibrillation. 7. Severe encephalopathy. 8. Dyslipidemia. 9. Hypertension, 10. resp failure: extubated on 12/06/16 RECOMMENDATIONS: We will continue with the respiratory care. currently NPO until evaluated by speech. will start rectal ASA until pt is able to take his po meds. Code status DNR though. Continue with the ICU care. lasmick and K today again. coreg once able to take po med. More than 38 minutes of critical care time was spent managing this patient excluding procedures. Problems: Subjective 24 Hr Interval Summary Free Text/Dictation d/w staff and rhythm was reviewed. pt remains in NSR with PVC but no more VT or Afib. pt has been successfully extubated on he is less lethargic denies any cp to me r Exam/Review of Systems Vital Signs Vitals Vital Signs Date Time Temp Pulse Resp B/P Pulse Ox O2 Delivery O2 Flow Rate FiO2 12/07/16 05:04 71 14 158/94 100 Nasal Cannula 2.0 12/07/16 02:12 27 12/07/16 01:03 97.7 Intake and Output 12/06/16 12/06/16 12/07/16 15:00 23:00 07:00 Intake Total 400 ml 0 ml Output Total 1125 ml 3800 ml 750 ml Balance -725 ml -3800 ml -750 ml Exam NEURO: awake but lethargic. responds appropriately. able to tell me his name but not location. vascular: + necrosis of toes. Constitutional: alert, distress, frail, obese, oriented, other, well developed Psych: confusion Head: atraumatic, normocephalic Eyes: EOMI, nl conjunctiva Neck: non-tender Respiratory: crackles/rales Cardiovascular: nl pulses, regular rate and rhythm Gastrointestinal: non-tender, soft Extremities: edema Neurological: other Results Result Diagram: 12/07/16 0355 12/07/16 0355 Results 24 hrs Laboratory Tests Test 12/06/16 09:24 12/06/16 13:29 12/06/16 17:57 12/06/16 19:49 Bedside Glucose 126 97 93 90 Test 12/07/16 01:11 12/07/16 03:55 12/07/16 05:03 Bedside Glucose 104 96 White Blood Count 10.7 Red Blood Count 3.53 L Hemoglobin 10.5 L Hematocrit 32.8 L Mean Corpuscular Volume 92.9 Mean Corpuscular Hemoglobin 29.7 Mean Corpuscular Hemoglobin Concent 32.0 Red Cell Distribution Width 14.9 H Platelet Count 333 Mean Platelet Volume 10.7 H Neutrophils % 68.3 Lymphocytes % 19.8 Monocytes % 7.4 Eosinophils % 2.8 Basophils % 1.2 Nucleated Red Blood Cells % 0.0 Neutrophils # 7.3 Lymphocytes # 2.1 Monocytes # 0.8 Eosinophils # 0.3 Basophils # 0.1 Nucleated Red Blood Cells # 0.0 Sodium Level 143 Potassium Level 3.6 Chloride Level 108 Carbon Dioxide Level 25 Anion Gap 14 Blood Urea Nitrogen 19 Creatinine 1.39 H Glucose Level 102 Calcium Level 9.8 Magnesium Level 1.7 Total Bilirubin 0.3 Direct Bilirubin 0.00 Indirect Bilirubin 0.3 Aspartate Amino Transf (AST/SGOT) 32 Alanine Aminotransferase (ALT/SGPT) 66 Alkaline Phosphatase 99 B-Type Natriuretic Peptide 9780 H Total Protein 6.7 Albumin 3.4 Globulin 3.30 H Albumin/Globulin Ratio 1.03 Medications Medications Current Medications Aspirin (Halfprin) 81 mg DAILY PO Last administered on 12/06/16 08:15; Admin Dose 81 MG; Start 11/20/16 at 09:00 Ticagrelor 90 mg 90 mg BID PO Last administered on 12/06/16 08:19; Admin Dose 90 MG; Start 11/19/16 at 21:00 Propofol 100 ml @ 3.818 mls/ hr Q12H IV Last administered on 12/05/16 02:15; Admin Dose 7.636 MLS/HR; Start 11/19/16 at 16:30 Fentanyl (Sublimaze) 100 ml @ 2.5 mls/hr TITRATE IV Last administered on 02:15; Admin Dose 5 MLS/HR; Start 11/19/16 at 17:00 Ondansetron HCl (Zofran Inj) 4 mg Q6H PRN IV NAUSEA AND/OR VOMITING; Start 04/27 at 17:00 Acetaminophen (Tylenol Liquid) 650 mg Q6H PRN PO PAIN LEVEL 1-3 OR FEVER; Start 11/19/16 at 17:00 Acetaminophen (Tylenol Supp) 650 mg Q4H PRN [place] PAIN LEVEL 1-3 OR FEVER; Start 11/19/16 at 17:00 Docusate Sodium (Colace) 100 mg Q12H PRN PO CONSTIPATION; Start 11/19/16 at 17: 00 Magnesium Hydroxide (Milk Of Mag) 30 ml DAILY PRN PO CONSTIPATION Last administered on 11/29/16 09:23; Admin Dose 30 ML; Start 11/19/16 at 17:00 Bisacodyl (Dulcolax Supp) 10 mg DAILY PRN [place] CONSTIPATION Last administered on 11/29/16 09:23; Admin Dose 10 MG; Start 11/19/16 at 17:00 Famotidine (Pepcid Iv) 20 mg DAILY IV Last administered on 12/06/16 08:54; Admin Dose 20 MG; Start 11/19/16 at 17:00 Insulin Aspart (Novolog Insulin Pen) NOVOLOG *MODERATE* ALGORI... Q4 SC Last administered on 12/04/16 17:44; Admin Dose 2 UNIT; Start 11/19/16 at 17:30 Miscellaneous Information 1 ea NOTE XX ; Start 11/19/16 at 17:30 Glucose (Glutose) 15 gm Q15M PRN PO DECREASED GLUCOSE; Start 11/19/16 at 17:30 Glucose (Glutose) 22.5 gm Q15M PRN PO DECREASED GLUCOSE; Start 11/19/16 at 17: 30 Dextrose (D50w Syringe) 25 ml Q15M PRN IV DECREASED GLUCOSE Last administered on 12/03/16 20:15; Admin Dose 25 ML; Start 11/19/16 at 17:30 Dextrose (D50w Syringe) 50 ml Q15M PRN IV DECREASED GLUCOSE; Start 11/19/16 at 17:30 Glucagon (Glucagen) 1 mg Q15M PRN IM DECREASED GLUCOSE; Start 11/19/16 at 17:30 Glucose 15 gm 15 gm Q15M PRN BUCCAL DECREASED GLUCOSE; Start 11/19/16 at 17:30 Norepinephrine/ Dextrose (Levophed/D5W) 500 ml @ 1.875 mls/ hr TITRATE IV Last administered on 11/22/16 01:11; Admin Dose 7.5 MLS/HR; Start 11/20/16 at 19:30 Atorvastatin Calcium (Lipitor) 10 mg HS NGT Last administered on 12/05/16 21: 08; Admin Dose 10 MG; Start 11/24/16 at 21:00 Mupirocin (Bactroban) 1 applic BID TOP Last administered on 12/06/16 20:36; Admin Dose 1 APPLIC; Start 11/27/16 at 09:30 Insulin Glargine 20 unit 20 unit DAILY@20 SC Last administered on 12/04/16 20: 46; Admin Dose 20 UNIT; Start 11/27/16 at 20:00 Linezolid (Zyvox 600mg/D5W (Pmx)) 300 ml @ 300 mls/hr Q12 IVPB Last administered on 12/06/16 20:36; Admin Dose 300 MLS/HR; Start 11/28/16 at 11:00 Thiamine HCl (Vitamin B1) 100 mg DAILY IV Last administered on 12/06/16 09:26 ; Admin Dose 100 MG; Start 11/29/16 at 10:00 Folic Acid (Folic Acid) 1 mg DAILY NGT Last administered on 12/06/16 08:16; Admin Dose 1 MG; Start 11/29/16 at 10:00 Multivitamins (Multivitamin) 30 ml DAILY NGT Last administered on 12/06/16 08: 15; Admin Dose 30 ML; Start 11/29/16 at 10:30 Hydralazine HCl (Apresoline) 10 mg Q2 PRN IV For SBP >170; Start 12/04/16 at 00 :00 Amiodarone HCl (Cordarone) 400 mg BID GTB Last administered on 12/06/16 08:16 ; Admin Dose 400 MG; Start 12/04/16 at 21:00 Carvedilol (Coreg) 3.125 mg BID NGT Last administered on 12/06/16 08:16; Admin Dose 3.125 MG; Start 12/06/16 at 09:00 SERENA ALACRAZ MD Dec 07, 2016 07:15
[2016-12-07] MEDS ORDERED: POTASSIUM CHLORIDE 20 MEQ in SOD CHLORIDE 0.9% 100 ML IVPB ONE (07:30)
[2016-12-07] MEDS ORDERED: POTASSIUM CHLORIDE 50 ML IVPB SCH (07:30)
[2016-12-07] MEDS ORDERED: FUROSEMIDE 20 MG INJ IV ONE (07:30)
[2016-12-07] MEDS: LINEZOLID 600 MG/D5W (PMX) 300 ML IVPB SCH (08:30)
[2016-12-07] MEDS: THIAMINE 200 MG INJ IV SCH (08:31)
[2016-12-07] MEDS: TICAGRELOR 90 MG TABLET PO SCH ×2 (08:32→21:00)
[2016-12-07] MEDS: FOLIC ACID 1 MG TAB NGT SCH (08:32)
[2016-12-07] MEDS: MULTIVITAMINS 30 ML CUP NGT SCH (08:32)
[2016-12-07] MEDS: AMIODARONE 200 MG TAB GTB SCH ×2 (08:33→21:00)
[2016-12-07] MEDS: ASPIRIN 300 MG SUPP PR SCH (08:39)
[2016-12-07] MEDS: FAMOTIDINE 20 MG INJ IV SCH (08:39)
[2016-12-07] MEDS: MUPIROCIN 2% 22 GM OINT TOP SCH ×2 (08:48→21:50)
--- NOTE | 2016-12-07 08:54 | CONS ---
Date/Time of Note Date/Time of Note DATE: 12/07/16 TIME: 08:52 Assessment/Plan Assessment/Plan Additional Assessment/Plan Assessment recommendations; 1. Patient admitted with cardiac arrest status post CPR 2 as well as acute coronary intervention with stenting of circumflex lesion. Now successfully extubated yesterday with marked overall clinical improvement. 2. Bilateral pneumonia with interval clearance of infiltrates. Patient currently on Zyvox. 3. Acute renal injury, with normalization of renal function. 4. 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 5. History of diabetes and hypertension. 6. History of alcohol abuse. Discontinue Zyvox. Patient can be transferred to the medical floor. Patient will benefit from initiation of physical therapy. Consultation Date/Type/Reason Admit Date/Time Nov 19, 2016 at 16:09 Type of Consultation: Pulmonary/critical care Referring Provider: PIO VEGA 24 HR Interval Summary Free Text/Dictation Patient condition is markedly improved. Patient was successfully extubated yesterday afternoon. Remains awake alert. Able to talk. Denies any shortness of breath. General exam; middle-aged male, currently in no distress awake alert. Exam/Review of Systems Vital Signs Vitals Vital Signs Date Time Temp Pulse Resp B/P Pulse Ox O2 Delivery O2 Flow Rate FiO2 12/07/16 06:00 72 14 155/91 100 Nasal Cannula 2.0 12/07/16 02:12 27 12/07/16 01:03 97.7 Intake and Output 12/06/16 12/06/16 12/07/16 15:00 23:00 07:00 Intake Total 400 ml 0 ml Output Total 1125 ml 3800 ml 750 ml Balance -725 ml -3800 ml -750 ml Exam HEENT exam; supple neck, no JVD. No lymphadenopathy. Midline trachea. No thyromegaly. Patient is edentulous. Pupils are small bilaterally. No neck masses. Chest exam; clear to auscultation. S1-S2 audible, no murmurs. Regular rhythm. Abdomen exam; soft, protuberant. Nontender. No organomegaly. Bowel sounds audible. Extremity exam; no peripheral edema. There is stable bilateral toe gangrene. Dorsalis pedis pulses are 2+ bilaterally. [employer] exam; no focal deficit. Results Result Diagram: 12/07/16 0355 12/07/16 0355 Results 24 hrs Laboratory Tests Test 12/06/16 09:24 12/06/16 13:29 12/06/16 17:57 12/06/16 19:49 Bedside Glucose 126 97 93 90 Test 12/07/16 01:11 12/07/16 03:55 12/07/16 05:03 Bedside Glucose 104 96 White Blood Count 10.7 Red Blood Count 3.53 L Hemoglobin 10.5 L Hematocrit 32.8 L Mean Corpuscular Volume 92.9 Mean Corpuscular Hemoglobin 29.7 Mean Corpuscular Hemoglobin Concent 32.0 Red Cell Distribution Width 14.9 H Platelet Count 333 Mean Platelet Volume 10.7 H Neutrophils % 68.3 Lymphocytes % 19.8 Monocytes % 7.4 Eosinophils % 2.8 Basophils % 1.2 Nucleated Red Blood Cells % 0.0 Neutrophils # 7.3 Lymphocytes # 2.1 Monocytes # 0.8 Eosinophils # 0.3 Basophils # 0.1 Nucleated Red Blood Cells # 0.0 Sodium Level 143 Potassium Level 3.6 Chloride Level 108 Carbon Dioxide Level 25 Anion Gap 14 Blood Urea Nitrogen 19 Creatinine 1.39 H Glucose Level 102 Calcium Level 9.8 Magnesium Level 1.7 Total Bilirubin 0.3 Direct Bilirubin 0.00 Indirect Bilirubin 0.3 Aspartate Amino Transf (AST/SGOT) 32 Alanine Aminotransferase (ALT/SGPT) 66 Alkaline Phosphatase 99 B-Type Natriuretic Peptide 9780 H Total Protein 6.7 Albumin 3.4 Globulin 3.30 H Albumin/Globulin Ratio 1.03 Medications Medications Current Medications Ticagrelor 90 mg 90 mg BID PO Last administered on 12/07/16 08:32; Admin Dose 90 MG; Start 11/19/16 at 21:00 Propofol 100 ml @ 3.818 mls/ hr Q12H IV Last administered on 12/05/16 02:15; Admin Dose 7.636 MLS/HR; Start 11/19/16 at 16:30 Fentanyl (Sublimaze) 100 ml @ 2.5 mls/hr TITRATE IV Last administered on 02:15; Admin Dose 5 MLS/HR; Start 11/19/16 at 17:00 Ondansetron HCl (Zofran Inj) 4 mg Q6H PRN IV NAUSEA AND/OR VOMITING; Start 04/27 at 17:00 Acetaminophen (Tylenol Liquid) 650 mg Q6H PRN PO PAIN LEVEL 1-3 OR FEVER; Start 11/19/16 at 17:00 Acetaminophen (Tylenol Supp) 650 mg Q4H PRN [place] PAIN LEVEL 1-3 OR FEVER; Start 11/19/16 at 17:00 Docusate Sodium (Colace) 100 mg Q12H PRN PO CONSTIPATION; Start 11/19/16 at 17: 00 Magnesium Hydroxide (Milk Of Mag) 30 ml DAILY PRN PO CONSTIPATION Last administered on 11/29/16 09:23; Admin Dose 30 ML; Start 11/19/16 at 17:00 Bisacodyl (Dulcolax Supp) 10 mg DAILY PRN [place] CONSTIPATION Last administered on 11/29/16 09:23; Admin Dose 10 MG; Start 11/19/16 at 17:00 Famotidine (Pepcid Iv) 20 mg DAILY IV Last administered on 12/07/16 08:39; Admin Dose 20 MG; Start 11/19/16 at 17:00 Insulin Aspart (Novolog Insulin Pen) NOVOLOG *MODERATE* ALGORI... Q4 SC Last administered on 12/04/16 17:44; Admin Dose 2 UNIT; Start 11/19/16 at 17:30 Miscellaneous Information 1 ea NOTE XX ; Start 11/19/16 at 17:30 Glucose (Glutose) 15 gm Q15M PRN PO DECREASED GLUCOSE; Start 11/19/16 at 17:30 Glucose (Glutose) 22.5 gm Q15M PRN PO DECREASED GLUCOSE; Start 11/19/16 at 17: 30 Dextrose (D50w Syringe) 25 ml Q15M PRN IV DECREASED GLUCOSE Last administered on 12/03/16 20:15; Admin Dose 25 ML; Start 11/19/16 at 17:30 Dextrose (D50w Syringe) 50 ml Q15M PRN IV DECREASED GLUCOSE; Start 11/19/16 at 17:30 Glucagon (Glucagen) 1 mg Q15M PRN IM DECREASED GLUCOSE; Start 11/19/16 at 17:30 Glucose 15 gm 15 gm Q15M PRN BUCCAL DECREASED GLUCOSE; Start 11/19/16 at 17:30 Norepinephrine/ Dextrose (Levophed/D5W) 500 ml @ 1.875 mls/ hr TITRATE IV Last administered on 11/22/16 01:11; Admin Dose 7.5 MLS/HR; Start 11/20/16 at 19:30 Atorvastatin Calcium (Lipitor) 10 mg HS NGT Last administered on 12/05/16 21: 08; Admin Dose 10 MG; Start 11/24/16 at 21:00 Mupirocin (Bactroban) 1 applic BID TOP Last administered on 12/06/16 20:36; Admin Dose 1 APPLIC; Start 11/27/16 at 09:30 Insulin Glargine 20 unit 20 unit DAILY@20 SC Last administered on 12/04/16 20: 46; Admin Dose 20 UNIT; Start 11/27/16 at 20:00 Linezolid (Zyvox 600mg/D5W (Pmx)) 300 ml @ 300 mls/hr Q12 IVPB Last administered on 12/07/16 08:30; Admin Dose 300 MLS/HR; Start 11/28/16 at 11:00 Thiamine HCl (Vitamin B1) 100 mg DAILY IV Last administered on 12/07/16 08:31 ; Admin Dose 100 MG; Start 11/29/16 at 10:00 Folic Acid (Folic Acid) 1 mg DAILY NGT Last administered on 12/06/16 08:16; Admin Dose 1 MG; Start 11/29/16 at 10:00 Multivitamins (Multivitamin) 30 ml DAILY NGT Last administered on 12/06/16 08: 15; Admin Dose 30 ML; Start 11/29/16 at 10:30 Hydralazine HCl (Apresoline) 10 mg Q2 PRN IV For SBP >170; Start 12/04/16 at 00 :00 Amiodarone HCl (Cordarone) 400 mg BID GTB Last administered on 12/06/16 08:16 ; Admin Dose 400 MG; Start 12/04/16 at 21:00 Carvedilol (Coreg) 3.125 mg BID NGT Last administered on 12/07/16 08:29; Admin Dose 3.125 MG; Start 12/06/16 at 09:00 Aspirin 300 mg 300 mg DAILY OK Last administered on 12/07/16 08:39; Admin Dose 300 MG; Start 12/07/16 at 09:00 Potassium Chloride (KCl 20 MEQ/50 ML SW) 50 ml @ 25 mls/hr ONCE IVPB Last administered on 12/07/16 08:39; Admin Dose 25 MLS/HR; Start 12/07/16 at 07:30; Stop 12/07/16 at 10:00 ELEONORA LEWIS Dec 07, 2016 08:54
--- NOTE | 2016-12-07 13:28 | PN ---
Date/Time of Note Date/Time of Note DATE: 12/07/16 TIME: 13:24 Assessment/Plan VTE Prophylaxis VTE Prophylaxis Intervention: contraindicated Lines/Catheters IV Catheter Type (from Nrsg): Central Line Central line still needed: Yes Urinary Cath still in place: Yes Reason Cath still needed: other (indicate) Assessment/Plan Assessment/Plan 1. cards: s/p v tach arrest and cpr x2 (b) stemi with PCI to Lcx, cont asa and brilinta (c) paroxsymal a fib, rate controlled (d) ischemic cardiomyopathy (e) fluid overload improving 2. tip of toes necrosis secodnary to pressor, no evidence of cellulitis, cotn to moniitor \3. ams related to critical illness delirium 4. substance abuse 5. ok tele Subjective 24 Hr Interval Summary Free Text/Dictation awake, spont moving all limbs, does not respond to questions Exam/Review of Systems Vital Signs Vitals Vital Signs Date Time Temp Pulse Resp B/P Pulse Ox O2 Delivery O2 Flow Rate FiO2 12/07/16 13:00 98.8 68 12 147/104 100 Nasal Cannula 2.0 12/07/16 02:12 27 Intake and Output 12/06/16 12/06/16 12/07/16 15:00 23:00 07:00 Intake Total 400 ml 0 ml Output Total 1125 ml 3800 ml 750 ml Balance -725 ml -3800 ml -750 ml Exam Constitutional: alert Respiratory: clear to auscultation Cardiovascular: regular rate and rhythm Gastrointestinal: non-tender, soft Results Result Diagram: 12/07/16 0355 12/07/16 0355 Results 24 hrs Laboratory Tests Test 12/06/16 13:29 12/06/16 17:57 12/06/16 19:49 12/07/16 01:11 Bedside Glucose 97 93 90 104 Test 12/07/16 03:55 12/07/16 05:03 12/07/16 08:41 12/07/16 12:37 White Blood Count 10.7 Red Blood Count 3.53 L Hemoglobin 10.5 L Hematocrit 32.8 L Mean Corpuscular Volume 92.9 Mean Corpuscular Hemoglobin 29.7 Mean Corpuscular Hemoglobin Concent 32.0 Red Cell Distribution Width 14.9 H Platelet Count 333 Mean Platelet Volume 10.7 H Neutrophils % 68.3 Lymphocytes % 19.8 Monocytes % 7.4 Eosinophils % 2.8 Basophils % 1.2 Nucleated Red Blood Cells % 0.0 Neutrophils # 7.3 Lymphocytes # 2.1 Monocytes # 0.8 Eosinophils # 0.3 Basophils # 0.1 Nucleated Red Blood Cells # 0.0 Sodium Level 143 Potassium Level 3.6 Chloride Level 108 Carbon Dioxide Level 25 Anion Gap 14 Blood Urea Nitrogen 19 Creatinine 1.39 H Glucose Level 102 Calcium Level 9.8 Magnesium Level 1.7 Total Bilirubin 0.3 Direct Bilirubin 0.00 Indirect Bilirubin 0.3 Aspartate Amino Transf (AST/SGOT) 32 Alanine Aminotransferase (ALT/SGPT) 66 Alkaline Phosphatase 99 B-Type Natriuretic Peptide 9780 H Total Protein 6.7 Albumin 3.4 Globulin 3.30 H Albumin/Globulin Ratio 1.03 Bedside Glucose 96 85 108 Medications Medications Current Medications Ticagrelor 90 mg 90 mg BID PO Last administered on 12/07/16 08:32; Admin Dose 90 MG; Start 11/19/16 at 21:00 Propofol 100 ml @ 3.818 mls/ hr Q12H IV Last administered on 12/05/16 02:15; Admin Dose 7.636 MLS/HR; Start 11/19/16 at 16:30 Fentanyl (Sublimaze) 100 ml @ 2.5 mls/hr TITRATE IV Last administered on 02:15; Admin Dose 5 MLS/HR; Start 11/19/16 at 17:00 Ondansetron HCl (Zofran Inj) 4 mg Q6H PRN IV NAUSEA AND/OR VOMITING; Start 04/27 at 17:00 Acetaminophen (Tylenol Liquid) 650 mg Q6H PRN PO PAIN LEVEL 1-3 OR FEVER; Start 11/19/16 at 17:00 Acetaminophen (Tylenol Supp) 650 mg Q4H PRN [place] PAIN LEVEL 1-3 OR FEVER; Start 11/19/16 at 17:00 Docusate Sodium (Colace) 100 mg Q12H PRN PO CONSTIPATION; Start 11/19/16 at 17: 00 Magnesium Hydroxide (Milk Of Mag) 30 ml DAILY PRN PO CONSTIPATION Last administered on 11/29/16 09:23; Admin Dose 30 ML; Start 11/19/16 at 17:00 Bisacodyl (Dulcolax Supp) 10 mg DAILY PRN [place] CONSTIPATION Last administered on 11/29/16 09:23; Admin Dose 10 MG; Start 11/19/16 at 17:00 Famotidine (Pepcid Iv) 20 mg DAILY IV Last administered on 12/07/16 08:39; Admin Dose 20 MG; Start 11/19/16 at 17:00 Insulin Aspart (Novolog Insulin Pen) NOVOLOG *MODERATE* ALGORI... Q4 SC Last administered on 12/04/16 17:44; Admin Dose 2 UNIT; Start 11/19/16 at 17:30 Miscellaneous Information 1 ea NOTE XX ; Start 11/19/16 at 17:30 Glucose (Glutose) 15 gm Q15M PRN PO DECREASED GLUCOSE; Start 11/19/16 at 17:30 Glucose (Glutose) 22.5 gm Q15M PRN PO DECREASED GLUCOSE; Start 11/19/16 at 17: 30 Dextrose (D50w Syringe) 25 ml Q15M PRN IV DECREASED GLUCOSE Last administered on 12/03/16 20:15; Admin Dose 25 ML; Start 11/19/16 at 17:30 Dextrose (D50w Syringe) 50 ml Q15M PRN IV DECREASED GLUCOSE; Start 11/19/16 at 17:30 Glucagon (Glucagen) 1 mg Q15M PRN IM DECREASED GLUCOSE; Start 11/19/16 at 17:30 Glucose 15 gm 15 gm Q15M PRN BUCCAL DECREASED GLUCOSE; Start 11/19/16 at 17:30 Norepinephrine/ Dextrose (Levophed/D5W) 500 ml @ 1.875 mls/ hr TITRATE IV Last administered on 11/22/16 01:11; Admin Dose 7.5 MLS/HR; Start 11/20/16 at 19:30 Atorvastatin Calcium (Lipitor) 10 mg HS NGT Last administered on 12/05/16 21: 08; Admin Dose 10 MG; Start 11/24/16 at 21:00 Mupirocin (Bactroban) 1 applic BID TOP Last administered on 12/07/16 08:48; Admin Dose 1 APPLIC; Start 11/27/16 at 09:30 Insulin Glargine (Lantus) 20 unit DAILY@20 SC Last administered on 12/04/16 20 :46; Admin Dose 20 UNIT; Start 11/27/16 at 20:00 Thiamine HCl (Vitamin B1) 100 mg DAILY IV Last administered on 12/07/16 08:31 ; Admin Dose 100 MG; Start 11/29/16 at 10:00 Folic Acid (Folic Acid) 1 mg DAILY NGT Last administered on 12/06/16 08:16; Admin Dose 1 MG; Start 11/29/16 at 10:00 Multivitamins (Multivitamin) 30 ml DAILY NGT Last administered on 12/06/16 08: 15; Admin Dose 30 ML; Start 11/29/16 at 10:30 Hydralazine HCl (Apresoline) 10 mg Q2 PRN IV For SBP >170; Start 12/04/16 at 00 :00 Amiodarone HCl (Cordarone) 400 mg BID GTB Last administered on 12/06/16 08:16 ; Admin Dose 400 MG; Start 12/04/16 at 21:00 Carvedilol (Coreg) 3.125 mg BID NGT Last administered on 12/07/16 08:29; Admin Dose 3.125 MG; Start 12/06/16 at 09:00 Aspirin (Aspirin) 300 mg DAILY MD Last administered on 12/07/16 08:39; Admin Dose 300 MG; Start 12/07/16 at 09:00 RODRIGO HENLEY MD Dec 07, 2016 13:28
[2016-12-07] MEDS ORDERED: LIDOCAINE 1% (MPF) 5 ML VIAL SC ONE (17:00)
--- NOTE | 2016-12-07 18:55 | CONS ---
Date/Time of Note Date/Time of Note DATE: 12/07/16 TIME: 18:53 Assessment/Plan Assessment/Plan Additional Assessment/Plan 1. Acute kidney injury on possible previous chronic kidney disease with last creatinine known about 1.48 secondary to acute tubular necrosis from ischemic acute tubular necrosis from cardiogenic shock.- Improving with good urine output 2. Acute respiratory failure from cardiogenic shock, currently intubated on ventilator-s/p extubation 12/06/16 3. Acute non-ST elevation myocardial infarction, s/p v tach arrest s/p pci of RCA, possible staged procedure to LCx required s/p IABP, now off 4. History of possible chronic kidney disease secondary to diabetic nephropathy , unknown stage. 5. History of type 2 diabetes mellitus. 6. History of hypertension. 7. paroxysmal atrial fibrillation Plan: s/p Extubation on 2 L, comfortable Cr1.39, making good urine output DNR, no indication for renal replacement therapy at this time Transferred to floor today Consultation Date/Type/Reason Admit Date/Time Nov 19, 2016 at 16:09 Initial Consult Date Nov Type of Consultation: NEPHROLOGY Referring Provider: PIO VEGA 24 HR Interval Summary Free Text/Dictation remains stable, transferred to floor, BP stable Exam/Review of Systems Vital Signs Vitals Vital Signs Date Time Temp Pulse Resp B/P Pulse Ox O2 Delivery O2 Flow Rate FiO2 12/07/16 18:05 98.5 71 20 158/102 99 Nasal Cannula 4.0 12/07/16 02:12 27 Intake and Output 12/06/16 12/06/16 12/07/16 15:00 23:00 07:00 Intake Total 400 ml 0 ml Output Total 1125 ml 3800 ml 750 ml Balance -725 ml -3800 ml -750 ml Exam GENERAL:s/p extubation, ] awake, NECK: supple, no JVD LUNGS: Bilateral crackles +no wheezing HEART: S1, S2, tachycardia, no murmur. ABDOMEN: Soft, morbidly obese. EXTREMITIES: 1 to 2+ pitting edema. No clubbing, cyanosis. + palmer catheter Results Result Diagram: 12/07/16 0355 12/07/16 0355 Results 24 hrs Laboratory Tests Test 12/06/16 19:49 12/07/16 01:11 12/07/16 03:55 12/07/16 05:03 Bedside Glucose 90 104 96 White Blood Count 10.7 Red Blood Count 3.53 L Hemoglobin 10.5 L Hematocrit 32.8 L Mean Corpuscular Volume 92.9 Mean Corpuscular Hemoglobin 29.7 Mean Corpuscular Hemoglobin Concent 32.0 Red Cell Distribution Width 14.9 H Platelet Count 333 Mean Platelet Volume 10.7 H Neutrophils % 68.3 Lymphocytes % 19.8 Monocytes % 7.4 Eosinophils % 2.8 Basophils % 1.2 Nucleated Red Blood Cells % 0.0 Neutrophils # 7.3 Lymphocytes # 2.1 Monocytes # 0.8 Eosinophils # 0.3 Basophils # 0.1 Nucleated Red Blood Cells # 0.0 Sodium Level 143 Potassium Level 3.6 Chloride Level 108 Carbon Dioxide Level 25 Anion Gap 14 Blood Urea Nitrogen 19 Creatinine 1.39 H Glucose Level 102 Calcium Level 9.8 Magnesium Level 1.7 Total Bilirubin 0.3 Direct Bilirubin 0.00 Indirect Bilirubin 0.3 Aspartate Amino Transf (AST/SGOT) 32 Alanine Aminotransferase (ALT/SGPT) 66 Alkaline Phosphatase 99 B-Type Natriuretic Peptide 9780 H Total Protein 6.7 Albumin 3.4 Globulin 3.30 H Albumin/Globulin Ratio 1.03 Test 12/07/16 08:41 12/07/16 12:37 12/07/16 16:40 12/07/16 18:11 Bedside Glucose 85 108 110 100 Medications Medications Current Medications Ticagrelor 90 mg 90 mg BID PO Last administered on 12/07/16 08:32; Admin Dose 90 MG; Start 11/19/16 at 21:00 Propofol 100 ml @ 3.818 mls/ hr Q12H IV Last administered on 12/05/16 02:15; Admin Dose 7.636 MLS/HR; Start 11/19/16 at 16:30; Status Future Hold Fentanyl (Sublimaze) 100 ml @ 2.5 mls/hr TITRATE IV Last administered on 02:15; Admin Dose 5 MLS/HR; Start 11/19/16 at 17:00; Status Future Hold Ondansetron HCl (Zofran Inj) 4 mg Q6H PRN IV NAUSEA AND/OR VOMITING; Start 04/27 at 17:00 Acetaminophen (Tylenol Liquid) 650 mg Q6H PRN PO PAIN LEVEL 1-3 OR FEVER; Start 11/19/16 at 17:00 Acetaminophen (Tylenol Supp) 650 mg Q4H PRN [place] PAIN LEVEL 1-3 OR FEVER; Start 11/19/16 at 17:00 Docusate Sodium (Colace) 100 mg Q12H PRN PO CONSTIPATION; Start 11/19/16 at 17: 00 Magnesium Hydroxide (Milk Of Mag) 30 ml DAILY PRN PO CONSTIPATION Last administered on 11/29/16 09:23; Admin Dose 30 ML; Start 11/19/16 at 17:00 Bisacodyl (Dulcolax Supp) 10 mg DAILY PRN [place] CONSTIPATION Last administered on 11/29/16 09:23; Admin Dose 10 MG; Start 11/19/16 at 17:00 Famotidine (Pepcid Iv) 20 mg DAILY IV Last administered on 12/07/16 08:39; Admin Dose 20 MG; Start 11/19/16 at 17:00 Insulin Aspart (Novolog Insulin Pen) NOVOLOG *MODERATE* ALGORI... Q4 SC Last administered on 12/04/16 17:44; Admin Dose 2 UNIT; Start 11/19/16 at 17:30 Miscellaneous Information 1 ea NOTE XX ; Start 11/19/16 at 17:30 Glucose (Glutose) 15 gm Q15M PRN PO DECREASED GLUCOSE; Start 11/19/16 at 17:30 Glucose (Glutose) 22.5 gm Q15M PRN PO DECREASED GLUCOSE; Start 11/19/16 at 17: 30 Dextrose (D50w Syringe) 25 ml Q15M PRN IV DECREASED GLUCOSE Last administered on 12/03/16 20:15; Admin Dose 25 ML; Start 11/19/16 at 17:30 Dextrose (D50w Syringe) 50 ml Q15M PRN IV DECREASED GLUCOSE; Start 11/19/16 at 17:30 Glucagon (Glucagen) 1 mg Q15M PRN IM DECREASED GLUCOSE; Start 11/19/16 at 17:30 Glucose 15 gm 15 gm Q15M PRN BUCCAL DECREASED GLUCOSE; Start 11/19/16 at 17:30 Norepinephrine/ Dextrose (Levophed/D5W) 500 ml @ 1.875 mls/ hr TITRATE IV Last administered on 11/22/16 01:11; Admin Dose 7.5 MLS/HR; Start 11/20/16 at 19:30; Status Future Hold Atorvastatin Calcium (Lipitor) 10 mg HS NGT Last administered on 12/05/16 21: 08; Admin Dose 10 MG; Start 11/24/16 at 21:00 Mupirocin (Bactroban) 1 applic BID TOP Last administered on 12/07/16 08:48; Admin Dose 1 APPLIC; Start 11/27/16 at 09:30 Insulin Glargine (Lantus) 20 unit DAILY@20 SC Last administered on 12/04/16 20 :46; Admin Dose 20 UNIT; Start 11/27/16 at 20:00 Thiamine HCl (Vitamin B1) 100 mg DAILY IV Last administered on 12/07/16 08:31 ; Admin Dose 100 MG; Start 11/29/16 at 10:00 Folic Acid (Folic Acid) 1 mg DAILY NGT Last administered on 12/06/16 08:16; Admin Dose 1 MG; Start 11/29/16 at 10:00 Multivitamins (Multivitamin) 30 ml DAILY NGT Last administered on 12/06/16 08: 15; Admin Dose 30 ML; Start 11/29/16 at 10:30 Hydralazine HCl (Apresoline) 10 mg Q2 PRN IV For SBP >170; Start 12/04/16 at 00 :00 Amiodarone HCl (Cordarone) 400 mg BID GTB Last administered on 12/06/16 08:16 ; Admin Dose 400 MG; Start 12/04/16 at 21:00 Carvedilol (Coreg) 3.125 mg BID NGT Last administered on 12/07/16 08:29; Admin Dose 3.125 MG; Start 12/06/16 at 09:00 Aspirin (Aspirin) 300 mg DAILY [place] Last administered on 12/07/16 08:39; Admin Dose 300 MG; Start 12/07/16 at 09:00 FÁTIMA PERES MD Dec 07, 2016 18:55
[2016-12-07] MEDS: INSULIN GLARGINE [LANtus] 3 ML PEN SC SCH (20:00)
[2016-12-07] MEDS: ATORVASTATIN 10 MG TAB NGT SCH (21:00)
[2016-12-08] VITALS (12 sets, daily range): BP systolic 143–190; BP diastolic 67–99; PULSE 35–72; RESP 18–19
[2016-12-08] MEDS: INSULIN ASPART [NOVOLOG] 3 ML PEN SC SCH ×6 (01:00→20:49)
[2016-12-08] MEDS: IPRATROPIUM (NEB) 0.5 MG/2.5 ML AMP HHN SCH ×4 (01:25→20:34)
[2016-12-08] MEDS: LEVALBUTEROL (NEB) 0.63 MG/3 ML AMP HHN SCH ×4 (01:25→20:34)
[2016-12-08 08:53] LABS: BASOPHIL # 0.2 10^3/ul (0.0-0.1); BASOPHILS % 1.6 % (0.0-2.0); EOSINOPHILS # 0.4 10^3/ul (0.0-0.5); EOSINOPHILS % 4.1 % (0.0-7.0); HEMATOCRIT 33.6 % (42.0-52.0); LYMPHOCYTES # 2.4 10^3/ul (0.8-2.9); LYMPHOCYTES % 22.3 % (15.0-51.0); MEAN CORPUSCULAR HEMOGLOBIN 30.1 pg (29.0-33.0); MEAN CORPUSCULAR HGB CONC 32.7 g/dl (32.0-37.0); MEAN CORPUSCULAR VOLUME 92.1 fl (82.0-101.0); MEAN PLATELET VOLUME 10.4 fl (7.4-10.4); MONOCYTE # 0.9 10^3/ul (0.3-0.9); MONOCYTES % 7.9 % (0.0-11.0); NEUTROPHIL # 6.9 10^3/ul (1.6-7.5); NEUTROPHILS % 63.7 % (39.0-77.0); PLATELET COUNT 334 10^3/UL (140-415); RED BLOOD COUNT 3.65 10^6/ul (4.70-6.10); RED CELL DISTRIBUTION WIDTH 15.4 % (11.5-14.5); WHITE BLOOD COUNT 10.8 10^3/ul (4.8-10.8)
[2016-12-08 08:59] LABS: ADD SCAN DIFF NO
[2016-12-08] MEDS: THIAMINE 200 MG INJ IV SCH (09:00)
[2016-12-08] MEDS: AMIODARONE 200 MG TAB GTB SCH ×2 (09:00→17:49)
[2016-12-08] MEDS: MULTIVITAMINS 30 ML CUP NGT SCH (09:00)
[2016-12-08] MEDS: ASPIRIN 300 MG SUPP PR SCH (09:00)
[2016-12-08] MEDS: TICAGRELOR 90 MG TABLET PO SCH ×2 (09:00→17:57)
[2016-12-08 09:16] LABS: ALBUMIN 3.8 g/dl (3.3-4.9); ALBUMIN/GLOBULIN RATIO 1.15; BILIRUBIN,INDIRECT 0.4 mg/dl (0-1.1); BILIRUBIN,TOTAL 0.4 mg/dl (0.2-1.3); CALCIUM 9.9 mg/dl (8.4-10.2); CREATININE 1.45 mg/dl (0.61-1.24); MAGNESIUM 1.8 mg/dl (1.7-2.5); POTASSIUM 3.7 mmol/L (3.5-5.1); TOTAL PROTEIN 7.1 g/dl (6.1-8.1)
[2016-12-08] MEDS: FOLIC ACID 1 MG TAB NGT SCH (09:28)
[2016-12-08] MEDS: FAMOTIDINE 20 MG INJ IV SCH (09:36)
[2016-12-08] MEDS: MUPIROCIN 2% 22 GM OINT TOP SCH ×2 (09:37→20:50)
--- NOTE | 2016-12-08 10:04 | CONS ---
Date/Time of Note Date/Time of Note DATE: 12/08/16 TIME: 10:02 Assessment/Plan Assessment/Plan Additional Assessment/Plan Assessment recommendations; 1. Patient initially admitted for cardiac arrest status post CPR 2 with coronary intervention with stenting of circumflex lesion. 2. Prolonged mechanical ventilation, status post extubation with marked overall clinical improvement. 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 4. Renal insufficiency. 5. History of alcohol abuse. 6. History of hypertension diabetes. 7. Pneumonia, with complete interval resolution, patient off antibiotics. 8. 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 Continue current treatment. Patient will benefit from transfer to rehab center. Consultation Date/Type/Reason Admit Date/Time Nov 19, 2016 at 16:09 Type of Consultation: Pulmonary Referring Provider: PIO VEGA 24 HR Interval Summary Free Text/Dictation Patient condition stable. Has been transferred out of ICU to telemetry unit. Patient is awake and alert. Slow to respond. General exam; middle-aged male, morbidly obese, currently in no distress. Exam/Review of Systems Vital Signs Vitals Vital Signs Date Time Temp Pulse Resp B/P Pulse Ox O2 Delivery O2 Flow Rate FiO2 12/08/16 08:17 65 20 98 Nasal Cannula 4.0 12/08/16 07:19 98.6 171/93 12/07/16 02:12 27 Intake and Output 12/07/16 12/07/16 12/08/16 15:00 23:00 07:00 Intake Total 350 ml Output Total 2275 ml 200 ml 500 ml Balance -1925 ml -200 ml -500 ml Exam HEENT exam; supple neck, no JVD. No lymphadenopathy. Midline trachea. No thyromegaly. Patient is edentulous. Pupils are small bilaterally. Chest exam; diminished but clear breath sound. S1-S2 audible, no murmurs. Regular rhythm. Abdomen exam; soft, protuberant. Nontender. No organomegaly. Bowel sounds audible. Extremity exam; no peripheral edema. Pulses 1+ bilaterally. Patient has stable bilateral toe gangrene. Dorsalis pedis pulses are 2+ bilaterally. 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 Results Result Diagram: 12/08/16 0754 12/08/16 0754 Results 24 hrs Laboratory Tests Test 12/07/16 12:37 12/07/16 16:40 12/07/16 18:11 12/08/16 01:46 Bedside Glucose 108 110 100 96 Test 12/08/16 05:52 12/08/16 07:54 12/08/16 08:06 Bedside Glucose 93 90 White Blood Count 10.8 Red Blood Count 3.65 L Hemoglobin 11.0 L Hematocrit 33.6 L Mean Corpuscular Volume 92.1 Mean Corpuscular Hemoglobin 30.1 Mean Corpuscular Hemoglobin Concent 32.7 Red Cell Distribution Width 15.4 H Platelet Count 334 Mean Platelet Volume 10.4 Neutrophils % 63.7 Lymphocytes % 22.3 Monocytes % 7.9 Eosinophils % 4.1 Basophils % 1.6 Nucleated Red Blood Cells % 0.0 Neutrophils # 6.9 Lymphocytes # 2.4 Monocytes # 0.9 Eosinophils # 0.4 Basophils # 0.2 H Nucleated Red Blood Cells # 0.0 Sodium Level 141 Potassium Level 3.7 Chloride Level 106 Carbon Dioxide Level 25 Anion Gap 14 Blood Urea Nitrogen 18 Creatinine 1.45 H Glucose Level 93 Calcium Level 9.9 Magnesium Level 1.8 Total Bilirubin 0.4 Direct Bilirubin 0.00 Indirect Bilirubin 0.4 Aspartate Amino Transf (AST/SGOT) 33 Alanine Aminotransferase (ALT/SGPT) 64 Alkaline Phosphatase 102 B-Type Natriuretic Peptide 9530 H Total Protein 7.1 Albumin 3.8 Globulin 3.30 H Albumin/Globulin Ratio 1.15 Medications Medications Current Medications Ticagrelor (Brilinta) 90 mg BID PO Last administered on 12/07/16 08:32; Admin Dose 90 MG; Start 11/19/16 at 21:00 Ondansetron HCl (Zofran Inj) 4 mg Q6H PRN IV NAUSEA AND/OR VOMITING; Start 04/27 at 17:00 Acetaminophen (Tylenol Liquid) 650 mg Q6H PRN PO PAIN LEVEL 1-3 OR FEVER; Start 11/19/16 at 17:00 Acetaminophen (Tylenol Supp) 650 mg Q4H PRN [place] PAIN LEVEL 1-3 OR FEVER; Start 11/19/16 at 17:00 Docusate Sodium (Colace) 100 mg Q12H PRN PO CONSTIPATION; Start 11/19/16 at 17: 00 Magnesium Hydroxide (Milk Of Mag) 30 ml DAILY PRN PO CONSTIPATION Last administered on 6/21/17at 09:23; Admin Dose 30 ML; Start 11/19/16 at 17:00 Bisacodyl (Dulcolax Supp) 10 mg DAILY PRN [place] CONSTIPATION Last administered on 11/29/16 09:23; Admin Dose 10 MG; Start 11/19/16 at 17:00 Famotidine (Pepcid Iv) 20 mg DAILY IV Last administered on 12/08/16 09:36; Admin Dose 20 MG; Start 11/19/16 at 17:00 Insulin Aspart (Novolog Insulin Pen) NOVOLOG *MODERATE* ALGORI... Q4 SC Last administered on 12/04/16 17:44; Admin Dose 2 UNIT; Start 11/19/16 at 17:30 Miscellaneous Information 1 ea NOTE XX ; Start 11/19/16 at 17:30 Glucose (Glutose) 15 gm Q15M PRN PO DECREASED GLUCOSE; Start 11/19/16 at 17:30 Glucose (Glutose) 22.5 gm Q15M PRN PO DECREASED GLUCOSE; Start 11/19/16 at 17: 30 Dextrose (D50w Syringe) 25 ml Q15M PRN IV DECREASED GLUCOSE Last administered on 12/03/16 20:15; Admin Dose 25 ML; Start 11/19/16 at 17:30 Dextrose (D50w Syringe) 50 ml Q15M PRN IV DECREASED GLUCOSE; Start 11/19/16 at 17:30 Glucagon (Glucagen) 1 mg Q15M PRN IM DECREASED GLUCOSE; Start 11/19/16 at 17:30 Glucose (Glutose) 15 gm Q15M PRN BUCCAL DECREASED GLUCOSE; Start 11/19/16 at 17 :30 Atorvastatin Calcium (Lipitor) 10 mg HS NGT Last administered on 12/05/16 21: 08; Admin Dose 10 MG; Start 11/24/16 at 21:00 Mupirocin (Bactroban) 1 applic BID TOP Last administered on 12/08/16 09:37; Admin Dose 1 APPLIC; Start 11/27/16 at 09:30 Insulin Glargine (Lantus) 20 unit DAILY@20 SC Last administered on 12/04/16 20 :46; Admin Dose 20 UNIT; Start 11/27/16 at 20:00 Thiamine HCl (Vitamin B1) 100 mg DAILY IV Last administered on 12/07/16 08:31 ; Admin Dose 100 MG; Start 11/29/16 at 10:00 Folic Acid (Folic Acid) 1 mg DAILY NGT Last administered on 12/08/16 09:28; Admin Dose 1 MG; Start 11/29/16 at 10:00 Multivitamins (Multivitamin) 30 ml DAILY NGT Last administered on 12/06/16 08: 15; Admin Dose 30 ML; Start 11/29/16 at 10:30 Hydralazine HCl (Apresoline) 10 mg Q2 PRN IV For SBP >170; Start 12/04/16 at 00 :00 Amiodarone HCl (Cordarone) 400 mg BID GTB Last administered on 12/06/16 08:16 ; Admin Dose 400 MG; Start 12/04/16 at 21:00 Carvedilol (Coreg) 3.125 mg BID NGT Last administered on 12/07/16 08:29; Admin Dose 3.125 MG; Start 12/06/16 at 09:00 Aspirin (Aspirin) 300 mg DAILY [place] Last administered on 12/07/16 08:39; Admin Dose 300 MG; Start 12/07/16 at 09:00 ELEONORA LEWIS Dec 08, 2016 10:04
--- NOTE | 2016-12-08 13:22 | PN ---
Date/Time of Note Date/Time of Note DATE: 12/08/16 TIME: 13:19 Assessment/Plan VTE Prophylaxis VTE Prophylaxis Intervention: SCD's Lines/Catheters IV Catheter Type (from Nrs): Central Line Central line still needed: No Urinary Cath still in place: Yes Reason Cath still needed: urinary retention, other (indicate) Assessment/Plan Assessment/Plan 1. cards: s/p v tach arrest x 2 (b) stemi with pci to lcx (c) ischemic cardiomyopathy (d) paroxysmal a fib (e) fluid overload, spot with lasix (f) htn, monitor 2. hematuria, monitor 3. d/c R IJ line, place picc (ordered yest) 4. increase activity 5. neuro: encephalopathy, likely toxic-metabolic \ Subjective 24 Hr Interval Summary Free Text/Dictation does not respond to voice, somnolent Exam/Review of Systems Vital Signs Vitals Vital Signs Date Time Temp Pulse Resp B/P Pulse Ox O2 Delivery O2 Flow Rate FiO2 12/08/16 12:59 68 12/08/16 11:48 98.7 18 177/67 98 12/08/16 08:17 Nasal Cannula 4.0 12/07/16 02:12 27 Intake and Output 12/07/16 12/07/16 12/08/16 15:00 23:00 07:00 Intake Total 350 ml Output Total 2275 ml 200 ml 500 ml Balance -1925 ml -200 ml -500 ml Exam Respiratory: clear to auscultation Cardiovascular: regular rate and rhythm Gastrointestinal: soft Results Result Diagram: 12/08/16 0754 12/08/16 0754 Results 24 hrs Laboratory Tests Test 12/07/16 16:40 12/07/16 18:11 12/08/16 01:46 12/08/16 05:52 Bedside Glucose 110 100 96 93 Test 12/08/16 07:54 12/08/16 08:06 12/08/16 12:41 White Blood Count 10.8 Red Blood Count 3.65 L Hemoglobin 11.0 L Hematocrit 33.6 L Mean Corpuscular Volume 92.1 Mean Corpuscular Hemoglobin 30.1 Mean Corpuscular Hemoglobin Concent 32.7 Red Cell Distribution Width 15.4 H Platelet Count 334 Mean Platelet Volume 10.4 Neutrophils % 63.7 Lymphocytes % 22.3 Monocytes % 7.9 Eosinophils % 4.1 Basophils % 1.6 Nucleated Red Blood Cells % 0.0 Neutrophils # 6.9 Lymphocytes # 2.4 Monocytes # 0.9 Eosinophils # 0.4 Basophils # 0.2 H Nucleated Red Blood Cells # 0.0 Sodium Level 141 Potassium Level 3.7 Chloride Level 106 Carbon Dioxide Level 25 Anion Gap 14 Blood Urea Nitrogen 18 Creatinine 1.45 H Glucose Level 93 Calcium Level 9.9 Magnesium Level 1.8 Total Bilirubin 0.4 Direct Bilirubin 0.00 Indirect Bilirubin 0.4 Aspartate Amino Transf (AST/SGOT) 33 Alanine Aminotransferase (ALT/SGPT) 64 Alkaline Phosphatase 102 B-Type Natriuretic Peptide 9530 H Total Protein 7.1 Albumin 3.8 Globulin 3.30 H Albumin/Globulin Ratio 1.15 Bedside Glucose 90 86 Medications Medications Current Medications Ticagrelor (Brilinta) 90 mg BID PO Last administered on 12/07/16 08:32; Admin Dose 90 MG; Start 11/19/16 at 21:00 Ondansetron HCl (Zofran Inj) 4 mg Q6H PRN IV NAUSEA AND/OR VOMITING; Start 04/27 at 17:00 Acetaminophen (Tylenol Liquid) 650 mg Q6H PRN PO PAIN LEVEL 1-3 OR FEVER; Start 11/19/16 at 17:00 Acetaminophen (Tylenol Supp) 650 mg Q4H PRN [place] PAIN LEVEL 1-3 OR FEVER; Start 11/19/16 at 17:00 Docusate Sodium (Colace) 100 mg Q12H PRN PO CONSTIPATION; Start 11/19/16 at 17: 00 Magnesium Hydroxide (Milk Of Mag) 30 ml DAILY PRN PO CONSTIPATION Last administered on 11/29/16 09:23; Admin Dose 30 ML; Start 11/19/16 at 17:00 Bisacodyl (Dulcolax Supp) 10 mg DAILY PRN [place] CONSTIPATION Last administered on 11/29/16 09:23; Admin Dose 10 MG; Start 11/19/16 at 17:00 Famotidine (Pepcid Iv) 20 mg DAILY IV Last administered on 12/08/16 09:36; Admin Dose 20 MG; Start 11/19/16 at 17:00 Insulin Aspart (Novolog Insulin Pen) NOVOLOG *MODERATE* ALGORI... Q4 [place] Last administered on 12/04/16 17:44; Admin Dose 2 UNIT; Start 11/19/16 at 17:30 Miscellaneous Information 1 ea NOTE XX ; Start 11/19/16 at 17:30 Glucose (Glutose) 15 gm Q15M PRN PO DECREASED GLUCOSE; Start 11/19/16 at 17:30 Glucose (Glutose) 22.5 gm Q15M PRN PO DECREASED GLUCOSE; Start 11/19/16 at 17: 30 Dextrose (D50w Syringe) 25 ml Q15M PRN IV DECREASED GLUCOSE Last administered on 12/03/16 20:15; Admin Dose 25 ML; Start 11/19/16 at 17:30 Dextrose (D50w Syringe) 50 ml Q15M PRN IV DECREASED GLUCOSE; Start 11/19/16 at 17:30 Glucagon (Glucagen) 1 mg Q15M PRN IM DECREASED GLUCOSE; Start 11/19/16 at 17:30 Glucose (Glutose) 15 gm Q15M PRN BUCCAL DECREASED GLUCOSE; Start 11/19/16 at 17 :30 Atorvastatin Calcium (Lipitor) 10 mg HS NGT Last administered on 12/05/16 21: 08; Admin Dose 10 MG; Start 11/24/16 at 21:00 Mupirocin (Bactroban) 1 applic BID TOP Last administered on 12/08/16 09:37; Admin Dose 1 APPLIC; Start 11/27/16 at 09:30 Insulin Glargine (Lantus) 20 unit DAILY@20 [place] Last administered on 12/04/16 20 :46; Admin Dose 20 UNIT; Start 11/27/16 at 20:00 Thiamine HCl (Vitamin B1) 100 mg DAILY IV Last administered on 12/07/16 08:31 ; Admin Dose 100 MG; Start 11/29/16 at 10:00 Folic Acid (Folic Acid) 1 mg DAILY NGT Last administered on 12/08/16 09:28; Admin Dose 1 MG; Start 11/29/16 at 10:00 Multivitamins (Multivitamin) 30 ml DAILY NGT Last administered on 12/06/16 08: 15; Admin Dose 30 ML; Start 11/29/16 at 10:30 Hydralazine HCl (Apresoline) 10 mg Q2 PRN IV For SBP >170; Start 12/04/16 at 00 :00 Amiodarone HCl (Cordarone) 400 mg BID GTB Last administered on 12/06/16 08:16 ; Admin Dose 400 MG; Start 12/04/16 at 21:00 Carvedilol (Coreg) 3.125 mg BID NGT Last administered on 12/07/16 08:29; Admin Dose 3.125 MG; Start 12/06/16 at 09:00 Aspirin (Aspirin) 300 mg DAILY [place] Last administered on 12/07/16 08:39; Admin Dose 300 MG; Start 12/07/16 at 09:00 RODRIGO HENLEY MD Dec 08, 2016 13:22
[2016-12-08] MEDS ORDERED: FUROSEMIDE 40 MG INJ IV ONE (13:30)
--- NOTE | 2016-12-08 16:17 | RADRPT ---
PROCEDURE: XR Chest. CLINICAL INDICATION: Check Line Placement TECHNIQUE: Single frontal view of the chest was obtained. COMPARISON: None. FINDINGS: There has been interval placement of a right-sided PICC line with its tip in the mid SVC. There has been interval extubation and removal of the enteric tube seen previously. There is stable moderate to severe cardiomegaly and moderate pulmonary vascular congestion. The right internal jugular central venous line is again noted with its tip at the superior cavoatria l junction. There are decreased lung volumes with increased bibasilar atelectasis. There is no significant pleural effusion or pneumothorax. IMPRESSION: Interval placement of a right-sided PICC line with its tip in the mid SVC. Interval extubation. Right IJ line is unchanged. Stable cardiomegaly and moderate pulmonary vascular congestion. Decreased lung volumes with increased bibasilar atelectasis. RPTAT: EE Physician Leticia Date Time Electronically viewed and signed by Physician Leticia on 12/08/2016 16:17 /
--- NOTE | 2016-12-08 16:18 | RADRPT ---
PROCEDURE: US guidance for PICC line CLINICAL INDICATION: PICC line placement TECHNIQUE: Multiple real-time images were acquired of the patient's arm utilizing a high resolutio n transducer. This was performed by the PICC line nurse for venous access. COMPARISON: None FINDINGS: Ultrasound guidance for PICC line placement. There is a patent and compressible right upper extremit y vein. IMPRESSION: Ultrasound guidance for PICC line placement. Patent and compressible right upper extremity vein. RPTAT: AA Physician Leticia Date Time Electronically viewed and signed by Marck Bird Physician on 12/08/2016 16:17 /
--- NOTE | 2016-12-08 16:33 | PN ---
Date/Time of Note Date/Time of Note DATE: 12/08/16 TIME: 16:31 Assessment/Plan VTE Prophylaxis VTE Prophylaxis Intervention: SCD's Lines/Catheters IV [facility]ter Type (from [facility]): PICC Line Central line still needed: Yes Urinary Cath still in place: Yes Reason Cath still needed: other (indicate) Assessment/Plan Chief Complaint/Hosp Course ASSESSMENT AND PLAN: 1. Status post ST elevation myocardial infarction, status post cardiac arrest secondary to ventricular tachycardia secondary to above. 2. Status post percutaneous coronary intervention of left circumflex artery. 3. Renal failure. Appears to be acute on chronic. Currently has improved significantly. 4. Congestive heart failure. 5. Recurrence of sustained ventricular tachycardia. 6. Paroxysmal atrial fibrillation. 7. Severe encephalopathy. 8. Dyslipidemia. 9. Hypertension, 10. resp failure: extubated on 12/06/16 RECOMMENDATIONS: We will continue with the respiratory care. currently refusing to take his po meds and does not believe he had an [facility]. . Code status DNR though. coreg once able to take po med. Problems: Subjective 24 Hr Interval Summary Free Text/Dictation d./w staff and rhythm was reviewed pt is out of ICU he has been refusing meds. Exam/Review of Systems Vital Signs Vitals Vital Signs Date Time Temp Pulse Resp B/P Pulse Ox O2 Delivery O2 Flow Rate FiO2 12/08/16 16:28 70 12/08/16 14:05 20 98 Nasal Cannula 4.0 12/08/16 11:48 98.7 177/67 12/07/16 02:12 27 Intake and Output 12/07/16 12/07/16 12/08/16 15:00 23:00 07:00 Intake Total 350 ml Output Total 2275 ml 200 ml 500 ml Balance -1925 ml -200 ml -500 ml Exam NEURO: awake but lethargic. responds appropriately. able to tell me his name but not location. vascular: + necrosis of toes. Constitutional: alert, distress, frail, obese, o Psych: agitatated Head: atraumatic, normocephalic Eyes: EOMI, nl conjunctiva Neck: non-tender Respiratory: mild crackles/rales Cardiovascular: nl pulses, regular rate and rhythm Gastrointestinal: non-tender, soft Extremities: edema Neurological: awake. alert Results Result Diagram: 12/08/16 0754 12/08/16 0754 Results 24 hrs Laboratory Tests Test 12/07/16 16:40 12/07/16 18:11 12/08/16 01:46 12/08/16 05:52 Bedside Glucose 110 100 96 93 Test 12/08/16 07:54 12/08/16 08:06 12/08/16 12:41 White Blood Count 10.8 Red Blood Count 3.65 L Hemoglobin 11.0 L Hematocrit 33.6 L Mean Corpuscular Volume 92.1 Mean Corpuscular Hemoglobin 30.1 Mean Corpuscular Hemoglobin Concent 32.7 Red Cell Distribution Width 15.4 H Platelet Count 334 Mean Platelet Volume 10.4 Neutrophils % 63.7 Lymphocytes % 22.3 Monocytes % 7.9 Eosinophils % 4.1 Basophils % 1.6 Nucleated Red Blood Cells % 0.0 Neutrophils # 6.9 Lymphocytes # 2.4 Monocytes # 0.9 Eosinophils # 0.4 Basophils # 0.2 H Nucleated Red Blood Cells # 0.0 Sodium Level 141 Potassium Level 3.7 Chloride Level 106 Carbon Dioxide Level 25 Anion Gap 14 Blood Urea Nitrogen 18 Creatinine 1.45 H Glucose Level 93 Calcium Level 9.9 Magnesium Level 1.8 Total Bilirubin 0.4 Direct Bilirubin 0.00 Indirect Bilirubin 0.4 Aspartate Amino Transf (AST/SGOT) 33 Alanine Aminotransferase (ALT/SGPT) 64 Alkaline Phosphatase 102 B-Type Natriuretic Peptide 9530 H Total Protein 7.1 Albumin 3.8 Globulin 3.30 H Albumin/Globulin Ratio 1.15 Bedside Glucose 90 86 Medications Medications Current Medications Ticagrelor (Brilinta) 90 mg BID PO Last administered on 12/07/16t 08:32; Admin Dose 90 MG; Start 11/19/16 at 21:00 Ondansetron HCl (Zofran Inj) 4 mg Q6H PRN IV NAUSEA AND/OR VOMITING; Start 04/27 at 17:00 Acetaminophen (Tylenol Liquid) 650 mg Q6H PRN PO PAIN LEVEL 1-3 OR FEVER; Start 11/19/16 at 17:00 Acetaminophen (Tylenol Supp) 650 mg Q4H PRN [place] PAIN LEVEL 1-3 OR FEVER; Start 11/19/16 at 17:00 Docusate Sodium (Colace) 100 mg Q12H PRN PO CONSTIPATION; Start 11/19/16 at 17: 00 Magnesium Hydroxide (Milk Of Mag) 30 ml DAILY PRN PO CONSTIPATION Last administered on 11/29/16 09:23; Admin Dose 30 ML; Start 11/19/16 at 17:00 Bisacodyl (Dulcolax Supp) 10 mg DAILY PRN [place] CONSTIPATION Last administered on 11/29/16 09:23; Admin Dose 10 MG; Start 11/19/16 at 17:00 Famotidine (Pepcid Iv) 20 mg DAILY IV Last administered on 12/08/16 09:36; Admin Dose 20 MG; Start 11/19/16 at 17:00 Insulin Aspart (Novolog Insulin Pen) NOVOLOG *MODERATE* ALGORI... Q4 SC Last administered on 12/04/16 17:44; Admin Dose 2 UNIT; Start 11/19/16 at 17:30 Miscellaneous Information 1 ea NOTE XX ; Start 11/19/16 at 17:30 Glucose (Glutose) 15 gm Q15M PRN PO DECREASED GLUCOSE; Start 11/19/16 at 17:30 Glucose (Glutose) 22.5 gm Q15M PRN PO DECREASED GLUCOSE; Start 11/19/16 at 17: 30 Dextrose (D50w Syringe) 25 ml Q15M PRN IV DECREASED GLUCOSE Last administered on 12/03/16 20:15; Admin Dose 25 ML; Start 11/19/16 at 17:30 Dextrose (D50w Syringe) 50 ml Q15M PRN IV DECREASED GLUCOSE; Start 11/19/16 at 17:30 Glucagon (Glucagen) 1 mg Q15M PRN IM DECREASED GLUCOSE; Start 11/19/16 at 17:30 Glucose (Glutose) 15 gm Q15M PRN BUCCAL DECREASED GLUCOSE; Start 11/19/16 at 17 :30 Atorvastatin Calcium (Lipitor) 10 mg HS NGT Last administered on 12/05/16 21: 08; Admin Dose 10 MG; Start 11/24/16 at 21:00 Mupirocin (Bactroban) 1 applic BID TOP Last administered on 12/08/16 09:37; Admin Dose 1 APPLIC; Start 11/27/16 at 09:30 Insulin Glargine (Lantus) 20 unit DAILY@20 SC Last administered on 12/04/16 20 :46; Admin Dose 20 UNIT; Start 11/27/16 at 20:00 Thiamine HCl (Vitamin B1) 100 mg DAILY IV Last administered on 12/07/16 08:31 ; Admin Dose 100 MG; Start 11/29/16 at 10:00 Folic Acid (Folic Acid) 1 mg DAILY NGT Last administered on 12/08/16 09:28; Admin Dose 1 MG; Start 11/29/16 at 10:00 Multivitamins (Multivitamin) 30 ml DAILY NGT Last administered on 12/06/16 08: 15; Admin Dose 30 ML; Start 11/29/16 at 10:30 Hydralazine HCl (Apresoline) 10 mg Q2 PRN IV For SBP >170; Start 12/04/16 at 00 :00 Amiodarone HCl (Cordarone) 400 mg BID GTB Last administered on 12/06/16 08:16 ; Admin Dose 400 MG; Start 12/04/16 at 21:00 Aspirin (Aspirin) 300 mg DAILY [place] Last administered on 12/07/16 08:39; Admin Dose 300 MG; Start 12/07/16 at 09:00 Carvedilol (Coreg) 6.25 mg BID NGT ; Start 12/08/16 at 21:00 Captopril (Capoten) 12.5 mg TID NGT ; Start 12/08/16 at 21:00 IV Flush (NS 10 ml) 10 ml PRN PRN IV IV PROTOCOL; Start 12/08/16 at 16:00 SERENA ALCARAZ MD Dec 08, 2016 16:33
--- NOTE | 2016-12-08 16:37 | CONS ---
Date/Time of Note Date/Time of Note DATE: 12/08/16 TIME: 16:35 Assessment/Plan Assessment/Plan Additional Assessment/Plan 1. Acute kidney injury on possible previous chronic kidney disease with last creatinine known about 1.48 secondary to acute tubular necrosis from ischemic acute tubular necrosis from cardiogenic shock.- Improving with good urine output 2. Acute respiratory failure from cardiogenic shock, currently intubated on ventilator-s/p extubation 12/06/16 3. Acute non-ST elevation myocardial infarction, s/p v tach arrest s/p pci of RCA, possible staged procedure to LCx required s/p IABP, now off 4. History of possible chronic kidney disease secondary to diabetic nephropathy , unknown stage. 5. History of type 2 diabetes mellitus. 6. History of hypertension. 7. paroxysmal atrial fibrillation Plan: stable Cr1.45, making good urine output D/c Right IJ, PICC line ordered will monitor hematuria DNR, no indication for renal replacement therapy at this time Consultation Date/Type/Reason Admit Date/Time Nov 19, 2016 at 16:09 Initial Consult Date Nov Type of Consultation: NEPHROLOGY Referring Provider: PIO VEGA Exam/Review of Systems Vital Signs Vitals Vital Signs Date Time Temp Pulse Resp B/P Pulse Ox O2 Delivery O2 Flow Rate FiO2 12/08/16 16:30 98.7 75 18 143/99 98 12/08/16 14:05 Nasal Cannula 4.0 12/07/16 02:12 27 Intake and Output 12/07/16 12/07/16 12/08/16 15:00 23:00 07:00 Intake Total 350 ml Output Total 2275 ml 200 ml 500 ml Balance -1925 ml -200 ml -500 ml Results Result Diagram: 12/08/16 0754 12/08/16 0754 Results 24 hrs Laboratory Tests Test 12/07/16 16:40 12/07/16 18:11 12/08/16 01:46 12/08/16 05:52 Bedside Glucose 110 100 96 93 Test 12/08/16 07:54 12/08/16 08:06 12/08/16 12:41 White Blood Count 10.8 Red Blood Count 3.65 L Hemoglobin 11.0 L Hematocrit 33.6 L Mean Corpuscular Volume 92.1 Mean Corpuscular Hemoglobin 30.1 Mean Corpuscular Hemoglobin Concent 32.7 Red Cell Distribution Width 15.4 H Platelet Count 334 Mean Platelet Volume 10.4 Neutrophils % 63.7 Lymphocytes % 22.3 Monocytes % 7.9 Eosinophils % 4.1 Basophils % 1.6 Nucleated Red Blood Cells % 0.0 Neutrophils # 6.9 Lymphocytes # 2.4 Monocytes # 0.9 Eosinophils # 0.4 Basophils # 0.2 H Nucleated Red Blood Cells # 0.0 Sodium Level 141 Potassium Level 3.7 Chloride Level 106 Carbon Dioxide Level 25 Anion Gap 14 Blood Urea Nitrogen 18 Creatinine 1.45 H Glucose Level 93 Calcium Level 9.9 Magnesium Level 1.8 Total Bilirubin 0.4 Direct Bilirubin 0.00 Indirect Bilirubin 0.4 Aspartate Amino Transf (AST/SGOT) 33 Alanine Aminotransferase (ALT/SGPT) 64 Alkaline Phosphatase 102 B-Type Natriuretic Peptide 9530 H Total Protein 7.1 Albumin 3.8 Globulin 3.30 H Albumin/Globulin Ratio 1.15 Bedside Glucose 90 86 Medications Medications Current Medications Ticagrelor (Brilinta) 90 mg BID PO Last administered on 12/07/16 08:32; Admin Dose 90 MG; Start 11/19/16 at 21:00 Ondansetron HCl (Zofran Inj) 4 mg Q6H PRN IV NAUSEA AND/OR VOMITING; Start 04/27 at 17:00 Acetaminophen (Tylenol Liquid) 650 mg Q6H PRN PO PAIN LEVEL 1-3 OR FEVER; Start 11/19/16 at 17:00 Acetaminophen (Tylenol Supp) 650 mg Q4H PRN [place] PAIN LEVEL 1-3 OR FEVER; Start 11/19/16 at 17:00 Docusate Sodium (Colace) 100 mg Q12H PRN PO CONSTIPATION; Start 11/19/16 at 17: 00 Magnesium Hydroxide (Milk Of Mag) 30 ml DAILY PRN PO CONSTIPATION Last administered on 11/29/16 09:23; Admin Dose 30 ML; Start 11/19/16 at 17:00 Bisacodyl (Dulcolax Supp) 10 mg DAILY PRN [place] CONSTIPATION Last administered on 11/29/16 09:23; Admin Dose 10 MG; Start 11/19/16 at 17:00 Famotidine (Pepcid Iv) 20 mg DAILY IV Last administered on 12/08/16 09:36; Admin Dose 20 MG; Start 11/19/16 at 17:00 Insulin Aspart (Novolog Insulin Pen) NOVOLOG *MODERATE* ALGORI... Q4 SC Last administered on 12/04/16 17:44; Admin Dose 2 UNIT; Start 11/19/16 at 17:30 Miscellaneous Information 1 ea NOTE XX ; Start 11/19/16 at 17:30 Glucose (Glutose) 15 gm Q15M PRN PO DECREASED GLUCOSE; Start 11/19/16 at 17:30 Glucose (Glutose) 22.5 gm Q15M PRN PO DECREASED GLUCOSE; Start 11/19/16 at 17: 30 Dextrose (D50w Syringe) 25 ml Q15M PRN IV DECREASED GLUCOSE Last administered on 12/03/16 20:15; Admin Dose 25 ML; Start 11/19/16 at 17:30 Dextrose (D50w Syringe) 50 ml Q15M PRN IV DECREASED GLUCOSE; Start 11/19/16 at 17:30 Glucagon (Glucagen) 1 mg Q15M PRN IM DECREASED GLUCOSE; Start 11/19/16 at 17:30 Glucose (Glutose) 15 gm Q15M PRN BUCCAL DECREASED GLUCOSE; Start 11/19/16 at 17 :30 Atorvastatin Calcium (Lipitor) 10 mg HS NGT Last administered on 12/05/16 21: 08; Admin Dose 10 MG; Start 11/24/16 at 21:00 Mupirocin (Bactroban) 1 applic BID TOP Last administered on 12/08/16 09:37; Admin Dose 1 APPLIC; Start 11/27/16 at 09:30 Insulin Glargine (Lantus) 20 unit DAILY@20 [place] Last administered on 12/04/16 20 :46; Admin Dose 20 UNIT; Start 11/27/16 at 20:00 Thiamine HCl (Vitamin B1) 100 mg DAILY IV Last administered on 12/07/16 08:31 ; Admin Dose 100 MG; Start 11/29/16 at 10:00 Folic Acid (Folic Acid) 1 mg DAILY NGT Last administered on 12/08/16 09:28; Admin Dose 1 MG; Start 11/29/16 at 10:00 Multivitamins (Multivitamin) 30 ml DAILY NGT Last administered on 12/06/16 08: 15; Admin Dose 30 ML; Start 11/29/16 at 10:30 Hydralazine HCl (Apresoline) 10 mg Q2 PRN IV For SBP >170; Start 12/04/16 at 00 :00 Amiodarone HCl (Cordarone) 400 mg BID GTB Last administered on 12/06/16 08:16 ; Admin Dose 400 MG; Start 12/04/16 at 21:00 Aspirin (Aspirin) 300 mg DAILY [place] Last administered on 12/07/16 08:39; Admin Dose 300 MG; Start 12/07/16 at 09:00 Carvedilol (Coreg) 6.25 mg BID NGT ; Start 12/08/16 at 21:00 Captopril (Capoten) 12.5 mg TID NGT ; Start 12/08/16 at 21:00 IV Flush (NS 10 ml) 10 ml PRN PRN IV IV PROTOCOL; Start 12/08/16 at 16:00 FÁTIMA PERES MD Dec 08, 2016 16:37
[2016-12-08] MEDS ORDERED: SOD CHLORIDE 0.9% 100 ML ONE (17:25)
[2016-12-08] MEDS: INSULIN GLARGINE [LANtus] 3 ML PEN SC SCH (20:00)
[2016-12-08] MEDS: ATORVASTATIN 10 MG TAB NGT SCH (20:47)
[2016-12-09] VITALS (16 sets, daily range): BP systolic 136–163; BP diastolic 67–91; PULSE 30–82; RESP 17–19
[2016-12-09] MEDS: INSULIN ASPART [NOVOLOG] 3 ML PEN SC SCH ×3 (01:00→09:00)
[2016-12-09] MEDS: LEVALBUTEROL (NEB) 0.63 MG/3 ML AMP HHN SCH ×4 (01:16→21:38)
[2016-12-09] MEDS: IPRATROPIUM (NEB) 0.5 MG/2.5 ML AMP HHN SCH ×4 (01:16→21:38)
[2016-12-09 07:02] LABS: BASOPHIL # 0.2 10^3/ul (0.0-0.1); BASOPHILS % 1.7 % (0.0-2.0); EOSINOPHILS # 0.4 10^3/ul (0.0-0.5); EOSINOPHILS % 3.2 % (0.0-7.0); HEMATOCRIT 34.5 % (42.0-52.0); HEMOGLOBIN 11.2 g/dl (14.0-18.0); LYMPHOCYTES # 2.2 10^3/ul (0.8-2.9); LYMPHOCYTES % 18.8 % (15.0-51.0); MEAN CORPUSCULAR HEMOGLOBIN 29.9 pg (29.0-33.0); MEAN CORPUSCULAR HGB CONC 32.5 g/dl (32.0-37.0); MEAN PLATELET VOLUME 10.2 fl (7.4-10.4); MONOCYTE # 0.8 10^3/ul (0.3-0.9); MONOCYTES % 7.1 % (0.0-11.0); NEUTROPHIL # 8.1 10^3/ul (1.6-7.5); NEUTROPHILS % 68.8 % (39.0-77.0); PLATELET COUNT 330 10^3/UL (140-415); RED BLOOD COUNT 3.75 10^6/ul (4.70-6.10); RED CELL DISTRIBUTION WIDTH 15.1 % (11.5-14.5); WHITE BLOOD COUNT 11.8 10^3/ul (4.8-10.8)
[2016-12-09 07:27] LABS: CALCIUM 10.4 mg/dl (8.4-10.2); CREATININE 1.43 mg/dl (0.61-1.24); POTASSIUM 3.6 mmol/L (3.5-5.1)
[2016-12-09] MEDS: MULTIVITAMINS 30 ML CUP NGT SCH (10:52)
[2016-12-09] MEDS: THIAMINE 200 MG INJ IV SCH (10:52)
[2016-12-09] MEDS: TICAGRELOR 90 MG TABLET PO SCH ×2 (10:54→20:34)
[2016-12-09] MEDS: ASPIRIN 300 MG SUPP PR SCH (10:55)
[2016-12-09] MEDS: AMIODARONE 200 MG TAB GTB SCH (10:55)
[2016-12-09] MEDS: FOLIC ACID 1 MG TAB NGT SCH (10:55)
[2016-12-09] MEDS: MUPIROCIN 2% 22 GM OINT TOP SCH ×2 (10:56→20:36)
[2016-12-09] MEDS: FAMOTIDINE 20 MG INJ IV SCH (11:01)
--- NOTE | 2016-12-09 12:19 | PN ---
Date/Time of Note Date/Time of Note DATE: 12/09/16 TIME: 12:13 Assessment/Plan VTE Prophylaxis VTE Prophylaxis Intervention: other Lines/Catheters IV Catheter Type (from Nrsg): PICC Line Central line still needed: Yes Urinary Cath still in place: Yes Reason Cath still needed: other (indicate) Assessment/Plan Assessment/Plan 1. cards: s/p stemis and stent to LCx (b) chf, spot with lasix, but laying flat on ra with o2 sat 93% currenly (c) paroxysmal a fib, rate controlled, will add anticoag at time of d/c (d) episodes of bradycardia and >2sec pause last night, hold coreg, d/c amio to 200mg daily 2. ckd stable, cont acei (b) d/c palmer 3. delirium, slowly resolving 4. anticipate snmf 1-2 days Subjective 24 Hr Interval Summary Free Text/Dictation no complaintrs no pain Exam/Review of Systems Vital Signs Vitals Vital Signs Date Time Temp Pulse Resp B/P Pulse Ox O2 Delivery O2 Flow Rate FiO2 12/09/16 11:30 98.1 59 17 145/91 93 12/09/16 07:54 2.0 12/09/16 07:53 Nasal Cannula 12/07/16 02:12 27 Intake and Output 12/08/16 12/08/16 12/09/16 15:00 23:00 07:00 Intake Total 150 ml 200 ml Output Total 700 ml 600 ml Balance -550 ml -400 ml Exam Respiratory: clear to auscultation Cardiovascular: regular rate and rhythm Extremities: other (still with necrosis of toes) Results Result Diagram: 12/09/16 0625 12/09/16 0625 Results 24 hrs Laboratory Tests Test 12/08/16 12:41 12/08/16 18:01 12/08/16 20:43 12/09/16 02:52 Bedside Glucose 86 78 101 102 Test 12/09/16 05:43 12/09/16 06:25 12/09/16 10:49 Bedside Glucose 112 116 White Blood Count 11.8 H Red Blood Count 3.75 L Hemoglobin 11.2 L Hematocrit 34.5 L Mean Corpuscular Volume 92.0 Mean Corpuscular Hemoglobin 29.9 Mean Corpuscular Hemoglobin Concent 32.5 Red Cell Distribution Width 15.1 H Platelet Count 330 Mean Platelet Volume 10.2 Neutrophils % 68.8 Lymphocytes % 18.8 Monocytes % 7.1 Eosinophils % 3.2 Basophils % 1.7 Nucleated Red Blood Cells % 0.0 Neutrophils # 8.1 H Lymphocytes # 2.2 Monocytes # 0.8 Eosinophils # 0.4 Basophils # 0.2 H Nucleated Red Blood Cells # 0.0 Sodium Level 146 H Potassium Level 3.6 Chloride Level 103 Carbon Dioxide Level 25 Anion Gap 22 #H Blood Urea Nitrogen 21 H Creatinine 1.43 H Glucose Level 112 Calcium Level 10.4 H Medications Medications Current Medications Ticagrelor (Brilinta) 90 mg BID PO Last administered on 12/09/16 10:54; Admin Dose 90 MG; Start 11/19/16 at 21:00 Ondansetron HCl (Zofran Inj) 4 mg Q6H PRN IV NAUSEA AND/OR VOMITING; Start 04/27 at 17:00 Acetaminophen (Tylenol Liquid) 650 mg Q6H PRN PO PAIN LEVEL 1-3 OR FEVER; Start 11/19/16 at 17:00 Acetaminophen (Tylenol Supp) 650 mg Q4H PRN [place] PAIN LEVEL 1-3 OR FEVER; Start 11/19/16 at 17:00 Docusate Sodium (Colace) 100 mg Q12H PRN PO CONSTIPATION; Start 11/19/16 at 17: 00 Magnesium Hydroxide (Milk Of Mag) 30 ml DAILY PRN PO CONSTIPATION Last administered on 11/29/16 09:23; Admin Dose 30 ML; Start 11/19/16 at 17:00 Bisacodyl (Dulcolax Supp) 10 mg DAILY PRN [place] CONSTIPATION Last administered on 11/29/16 09:23; Admin Dose 10 MG; Start 11/19/16 at 17:00 Famotidine (Pepcid Iv) 20 mg DAILY IV Last administered on 12/09/16 11:01; Admin Dose 20 MG; Start 11/19/16 at 17:00 Insulin Aspart (Novolog Insulin Pen) NOVOLOG *MODERATE* ALGORI... Q4 SC Last administered on 12/04/16 17:44; Admin Dose 2 UNIT; Start 11/19/16 at 17:30 Miscellaneous Information 1 ea NOTE XX ; Start 11/19/16 at 17:30 Glucose (Glutose) 15 gm Q15M PRN PO DECREASED GLUCOSE; Start 11/19/16 at 17:30 Glucose (Glutose) 22.5 gm Q15M PRN PO DECREASED GLUCOSE; Start 11/19/16 at 17: 30 Dextrose (D50w Syringe) 25 ml Q15M PRN IV DECREASED GLUCOSE Last administered on 12/03/16 20:15; Admin Dose 25 ML; Start 11/19/16 at 17:30 Dextrose (D50w Syringe) 50 ml Q15M PRN IV DECREASED GLUCOSE; Start 11/19/16 at 17:30 Glucagon (Glucagen) 1 mg Q15M PRN IM DECREASED GLUCOSE; Start 11/19/16 at 17:30 Glucose (Glutose) 15 gm Q15M PRN BUCCAL DECREASED GLUCOSE; Start 11/19/16 at 17 :30 Atorvastatin Calcium (Lipitor) 10 mg HS NGT Last administered on 12/08/16 20: 47; Admin Dose 10 MG; Start 11/24/16 at 21:00 Mupirocin (Bactroban) 1 applic BID TOP Last administered on 12/09/16 10:56; Admin Dose 1 APPLIC; Start 11/27/16 at 09:30 Insulin Glargine (Lantus) 20 unit DAILY@20 [place] Last administered on 12/04/16 20 :46; Admin Dose 20 UNIT; Start 11/27/16 at 20:00 Thiamine HCl (Vitamin B1) 100 mg DAILY IV Last administered on 12/09/16 10:52; Admin Dose 100 MG; Start 11/29/16 at 10:00 Folic Acid (Folic Acid) 1 mg DAILY NGT Last administered on 12/09/16 10:55; Admin Dose 1 MG; Start 11/29/16 at 10:00 Multivitamins (Multivitamin) 30 ml DAILY NGT Last administered on 12/09/16 10: 52; Admin Dose 30 ML; Start 11/29/16 at 10:30 Hydralazine HCl (Apresoline) 10 mg Q2 PRN IV For SBP >170; Start 12/04/16 at 00 :00 Amiodarone HCl (Cordarone) 400 mg BID GTB Last administered on 12/09/16 10:55; Admin Dose 400 MG; Start 12/04/16 at 21:00 Aspirin (Aspirin) 300 mg DAILY [place] Last administered on 12/07/16 08:39; Admin Dose 300 MG; Start 12/07/16 at 09:00 Carvedilol (Coreg) 6.25 mg BID NGT Last administered on 12/09/16 10:53; Admin Dose 6.25 MG; Start 12/08/16 at 21:00 Captopril (Capoten) 12.5 mg TID NGT Last administered on 12/09/16 10:52; Admin Dose 12.5 MG; Start 12/08/16 at 21:00 IV Flush (NS 10 ml) 10 ml PRN PRN IV IV PROTOCOL; Start 12/08/16 at 16:00 RODRIGO HENLEY MD Dec 09, 2016 12:19
[2016-12-09] MEDS ORDERED: FUROSEMIDE 40 MG INJ IV ONE (12:30)
--- NOTE | 2016-12-09 16:39 | PN ---
Date/Time of Note Date/Time of Note DATE: 12/09/16 TIME: 16:34 Assessment/Plan VTE Prophylaxis VTE Prophylaxis Intervention: SCD's Lines/Catheters IV Catheter Type (from Nrs): PICC Line Central line still needed: Yes Urinary Cath still in place: Yes Reason Cath still needed: other (indicate) Assessment/Plan Chief Complaint/Hosp Course ASSESSMENT AND PLAN: 1. Status post ST elevation myocardial infarction, status post cardiac arrest secondary to ventricular tachycardia secondary to above. 2. Status post percutaneous coronary intervention of left circumflex artery. 3. Renal failure. Appears to be acute on chronic. Currently has improved significantly. 4. Congestive heart failure. 5. Recurrence of sustained ventricular tachycardia. 6. Paroxysmal atrial fibrillation. 7. Severe encephalopathy. 8. Dyslipidemia. 9. Hypertension, 10. resp failure: extubated on 12/06/16 11. episodes of marked sinus bradycardia at night: ? [place] RECOMMENDATIONS: We will continue with current cardiac care low dose amiodarone ASA brilinta statin on captopril now. will change it to lisinopril qd for better compliance CONSIDER CPAP at night time if he agrees to it. Problems: Subjective 24 Hr Interval Summary Free Text/Dictation D/W STAFF and rhythm was reviewed. pt with episodes of marked sinus bradycardia over night. betablocker was stopped. no chest pain or pressure or palpitations Exam/Review of Systems Vital Signs Vitals Vital Signs Date Time Temp Pulse Resp B/P Pulse Ox O2 Delivery O2 Flow Rate FiO2 12/09/16 16:00 57 12/09/16 15:27 97 21 12/09/16 15:26 20 12/09/16 14:50 98.2 137/67 12/09/16 07:54 2.0 12/09/16 07:53 Nasal Cannula Intake and Output 12/08/16 12/08/16 12/09/16 15:00 23:00 07:00 Intake Total 150 ml 200 ml Output Total 700 ml 600 ml Balance -550 ml -400 ml Exam NEURO: awake but lethargic. responds appropriately. able to tell me his name but not location. vascular: + necrosis of toes. Constitutional: awake no distress,, obese, Psych: agitated Head: atraumatic, normocephalic Eyes: EOMI, nl conjunctiva Neck: non-tender. no strider Respiratory: no wheezes. Cardiovascular: s, regular rate and rhythm Gastrointestinal: non-tender, soft Extremities: Trace LE edema Neurological: awake. alert, OX1 only. Results Result Diagram: 12/09/16 0612/09/16 0625 Results 24 hrs Laboratory Tests Test 12/08/16 18:01 12/08/16 20:43 12/09/16 02:52 12/09/16 05:43 Bedside Glucose 78 101 102 112 Test 12/09/16 06:25 12/09/16 10:49 12/09/16 13:16 White Blood Count 11.8 H Red Blood Count 3.75 L Hemoglobin 11.2 L Hematocrit 34.5 L Mean Corpuscular Volume 92.0 Mean Corpuscular Hemoglobin 29.9 Mean Corpuscular Hemoglobin Concent 32.5 Red Cell Distribution Width 15.1 H Platelet Count 330 Mean Platelet Volume 10.2 Neutrophils % 68.8 Lymphocytes % 18.8 Monocytes % 7.1 Eosinophils % 3.2 Basophils % 1.7 Nucleated Red Blood Cells % 0.0 Neutrophils # 8.1 H Lymphocytes # 2.2 Monocytes # 0.8 Eosinophils # 0.4 Basophils # 0.2 H Nucleated Red Blood Cells # 0.0 Sodium Level 146 H Potassium Level 3.6 Chloride Level 103 Carbon Dioxide Level 25 Anion Gap 22 #H Blood Urea Nitrogen 21 H Creatinine 1.43 H Glucose Level 112 Calcium Level 10.4 H Bedside Glucose 116 112 Medications Medications Current Medications Ticagrelor (Brilinta) 90 mg BID PO Last administered on 12/09/16 10:54; Admin Dose 90 MG; Start 11/19/16 at 21:00 Ondansetron HCl (Zofran Inj) 4 mg Q6H PRN IV NAUSEA AND/OR VOMITING; Start 04/27 at 17:00 Acetaminophen (Tylenol Liquid) 650 mg Q6H PRN PO PAIN LEVEL 1-3 OR FEVER; Start 11/19/16 at 17:00 Acetaminophen (Tylenol Supp) 650 mg Q4H PRN [place] PAIN LEVEL 1-3 OR FEVER; Start 11/19/16 at 17:00 Docusate Sodium (Colace) 100 mg Q12H PRN PO CONSTIPATION; Start 11/19/16 at 17: 00 Magnesium Hydroxide (Milk Of Mag) 30 ml DAILY PRN PO CONSTIPATION Last administered on 11/29/16 09:23; Admin Dose 30 ML; Start 11/19/16 at 17:00 Bisacodyl (Dulcolax Supp) 10 mg DAILY PRN [place] CONSTIPATION Last administered on 11/29/16 09:23; Admin Dose 10 MG; Start 11/19/16 at 17:00 Famotidine (Pepcid Iv) 20 mg DAILY IV Last administered on 12/09/16 11:01; Admin Dose 20 MG; Start 11/19/16 at 17:00 Miscellaneous Information 1 ea NOTE XX ; Start 11/19/16 at 17:30 Glucose (Glutose) 15 gm Q15M PRN PO DECREASED GLUCOSE; Start 11/19/16 at 17:30 Glucose (Glutose) 22.5 gm Q15M PRN PO DECREASED GLUCOSE; Start 11/19/16 at 17: 30 Dextrose (D50w Syringe) 25 ml Q15M PRN IV DECREASED GLUCOSE Last administered on 12/03/16 20:15; Admin Dose 25 ML; Start 11/19/16 at 17:30 Dextrose (D50w Syringe) 50 ml Q15M PRN IV DECREASED GLUCOSE; Start 11/19/16 at 17:30 Glucagon (Glucagen) 1 mg Q15M PRN IM DECREASED GLUCOSE; Start 11/19/16 at 17:30 Glucose (Glutose) 15 gm Q15M PRN BUCCAL DECREASED GLUCOSE; Start 11/19/16 at 17 :30 Atorvastatin Calcium (Lipitor) 10 mg HS NGT Last administered on 12/08/16 20: 47; Admin Dose 10 MG; Start 11/24/16 at 21:00 Mupirocin (Bactroban) 1 applic BID TOP Last administered on 12/09/16 10:56; Admin Dose 1 APPLIC; Start 11/27/16 at 09:30 Insulin Glargine (Lantus) 20 unit DAILY@20 [place] Last administered on 12/04/16 20 :46; Admin Dose 20 UNIT; Start 11/27/16 at 20:00 Thiamine HCl (Vitamin B1) 100 mg DAILY IV Last administered on 12/09/16 10:52; Admin Dose 100 MG; Start 11/29/16 at 10:00 Folic Acid (Folic Acid) 1 mg DAILY NGT Last administered on 12/09/16 10:55; Admin Dose 1 MG; Start 11/29/16 at 10:00 Multivitamins (Multivitamin) 30 ml DAILY NGT Last administered on 12/09/16t 10: 52; Admin Dose 30 ML; Start 11/29/16 at 10:30 Hydralazine HCl (Apresoline) 10 mg Q2 PRN IV For SBP >170; Start 12/04/16 at 00 :00 Aspirin (Aspirin) 300 mg DAILY [place] Last administered on 12/07/16 08:39; Admin Dose 300 MG; Start 12/07/16 at 09:00 IV Flush (NS 10 ml) 10 ml PRN PRN IV IV PROTOCOL; Start 12/08/16 at 16:00 Amiodarone HCl (Cordarone) 200 mg DAILY GTB ; Start 12/10/16 at 09:00 Captopril (Capoten) 25 mg TID NGT ; Start 12/09/16 at 13:00 Diagnostic Test (Pha) (Accu-Chek) 1 ea 02 XX ; Start 12/09/16 at 13:30 SERENA ALCARAZ MD Dec 09, 2016 16:39
[2016-12-09] MEDS: Insulin NOVOLOG SS MODERATE Algorithm (SS with meals and bedtime) SC SCH ×2 (16:57→20:35)
[2016-12-09] MEDS ORDERED: INSULIN ASPART [NOVOLOG] 3 ML PEN SC SCH (17:25)
--- NOTE | 2016-12-09 18:43 | CONS ---
Date/Time of Note Date/Time of Note DATE: 12/09/16 TIME: 18:42 Consult Date/Type/Reason Admit Date/Time Nov 19, 2016 at 16:09 Initial Consult Date Type of Consultation: Pulm Ordering Provider: PIO VEGA Subjective no c/o; no events. Objective Vital Signs Date Time Temp Pulse Resp B/P Pulse Ox O2 Delivery O2 Flow Rate FiO2 12/09/16 18:14 21 12/09/16 16:00 57 12/09/16 15:27 97 12/09/16 15:26 20 12/09/16 14:50 98.2 137/67 12/09/16 07:54 2.0 12/09/16 07:53 Nasal Cannula Intake and Output 12/08/16 12/08/16 12/09/16 15:00 23:00 07:00 Intake Total 150 ml 200 ml Output Total 700 ml 600 ml Balance -550 ml -400 ml Exam HEENT: Neck supple; no JVD; no LAD CVS: RRR, S1 and S2 CHEST: Clear ABD: Soft, NT, + BS EXT: No c/c/e Results/Medications Result Diagram: 12/09/16 0625 12/09/16 0625 Results 24 hrs Laboratory Tests Test 12/08/16 20:43 12/09/16 02:52 12/09/16 05:43 12/09/16 06:25 Bedside Glucose 101 102 112 White Blood Count 11.8 H Red Blood Count 3.75 L Hemoglobin 11.2 L Hematocrit 34.5 L Mean Corpuscular Volume 92.0 Mean Corpuscular Hemoglobin 29.9 Mean Corpuscular Hemoglobin Concent 32.5 Red Cell Distribution Width 15.1 H Platelet Count 330 Mean Platelet Volume 10.2 Neutrophils % 68.8 Lymphocytes % 18.8 Monocytes % 7.1 Eosinophils % 3.2 Basophils % 1.7 Nucleated Red Blood Cells % 0.0 Neutrophils # 8.1 H Lymphocytes # 2.2 Monocytes # 0.8 Eosinophils # 0.4 Basophils # 0.2 H Nucleated Red Blood Cells # 0.0 Sodium Level 146 H Potassium Level 3.6 Chloride Level 103 Carbon Dioxide Level 25 Anion Gap 22 #H Blood Urea Nitrogen 21 H Creatinine 1.43 H Glucose Level 112 Calcium Level 10.4 H Test 12/09/16 10:49 12/09/16 13:16 12/09/16 16:50 Bedside Glucose 116 112 99 Medications Current Medications Ticagrelor (Brilinta) 90 mg BID PO Last administered on 12/09/16 10:54; Admin Dose 90 MG; Start 11/19/16 at 21:00 Ondansetron HCl (Zofran Inj) 4 mg Q6H PRN IV NAUSEA AND/OR VOMITING; Start 04/27 at 17:00 Acetaminophen (Tylenol Liquid) 650 mg Q6H PRN PO PAIN LEVEL 1-3 OR FEVER; Start 11/19/16 at 17:00 Acetaminophen (Tylenol Supp) 650 mg Q4H PRN [place] PAIN LEVEL 1-3 OR FEVER; Start 11/19/16 at 17:00 Docusate Sodium (Colace) 100 mg Q12H PRN PO CONSTIPATION; Start 11/19/16 at 17: 00 Magnesium Hydroxide (Milk Of Mag) 30 ml DAILY PRN PO CONSTIPATION Last administered on 11/29/16 09:23; Admin Dose 30 ML; Start 11/19/16 at 17:00 Bisacodyl (Dulcolax Supp) 10 mg DAILY PRN [place] CONSTIPATION Last administered on 11/29/16 09:23; Admin Dose 10 MG; Start 11/19/16 at 17:00 Famotidine (Pepcid Iv) 20 mg DAILY IV Last administered on 12/09/16 11:01; Admin Dose 20 MG; Start 11/19/16 at 17:00 Miscellaneous Information 1 ea NOTE XX ; Start 11/19/16 at 17:30 Glucose (Glutose) 15 gm Q15M PRN PO DECREASED GLUCOSE; Start 11/19/16 at 17:30 Glucose (Glutose) 22.5 gm Q15M PRN PO DECREASED GLUCOSE; Start 11/19/16 at 17: 30 Dextrose (D50w Syringe) 25 ml Q15M PRN IV DECREASED GLUCOSE Last administered on 12/03/16 20:15; Admin Dose 25 ML; Start 11/19/16 at 17:30 Dextrose (D50w Syringe) 50 ml Q15M PRN IV DECREASED GLUCOSE; Start 11/19/16 at 17:30 Glucagon (Glucagen) 1 mg Q15M PRN IM DECREASED GLUCOSE; Start 11/19/16 at 17:30 Glucose (Glutose) 15 gm Q15M PRN BUCCAL DECREASED GLUCOSE; Start 11/19/16 at 17 :30 Atorvastatin Calcium (Lipitor) 10 mg HS NGT Last administered on 12/08/16 20: 47; Admin Dose 10 MG; Start 11/24/16 at 21:00 Mupirocin (Bactroban) 1 applic BID TOP Last administered on 12/09/16 10:56; Admin Dose 1 APPLIC; Start 11/27/16 at 09:30 Insulin Glargine (Lantus) 20 unit DAILY@20 [place] Last administered on 12/04/16 20 :46; Admin Dose 20 UNIT; Start 11/27/16 at 20:00 Thiamine HCl (Vitamin B1) 100 mg DAILY IV Last administered on 12/09/16 10:52; Admin Dose 100 MG; Start 11/29/16 at 10:00 Folic Acid (Folic Acid) 1 mg DAILY NGT Last administered on 12/09/16 10:55; Admin Dose 1 MG; Start 11/29/16 at 10:00 Multivitamins (Multivitamin) 30 ml DAILY NGT Last administered on 12/09/16 10: 52; Admin Dose 30 ML; Start 11/29/16 at 10:30 Hydralazine HCl (Apresoline) 10 mg Q2 PRN IV For SBP >170; Start 12/04/16 at 00 :00 Aspirin (Aspirin) 300 mg DAILY [place] Last administered on 12/07/16 08:39; Admin Dose 300 MG; Start 12/07/16 at 09:00 IV Flush (NS 10 ml) 10 ml PRN PRN IV IV PROTOCOL; Start 12/08/16 at 16:00 Amiodarone HCl (Cordarone) 200 mg DAILY GTB ; Start 12/10/16 at 09:00 Captopril (Capoten) 25 mg TID NGT Last administered on 12/09/16 16:54; Admin Dose 25 MG; Start 12/09/16 at 13:00 Diagnostic Test (Pha) (Accu-Chek) 1 ea 02 XX ; Start 12/09/16 at 13:30 Assessment/Plan Additional Assessment/Plan IMP: 1. Status post ST elevation myocardial infarction, status post cardiac arrest secondary to ventricular tachycardia secondary to above. 2. Status post percutaneous coronary intervention of left circumflex artery. 3. Renal failure. 4. Congestive heart failure. 5. Encephalopathy RECS: 1. PT/OT; mobilize OOB 2. BD's prn SHERRY FELIPE MD Dec 09, 2016 18:43
[2016-12-09] MEDS: ATORVASTATIN 10 MG TAB NGT SCH (20:30)
[2016-12-09] MEDS: INSULIN GLARGINE [LANtus] 3 ML PEN SC SCH (20:37)
--- NOTE | 2016-12-09 22:50 | CONS ---
Date/Time of Note Date/Time of Note DATE: 12/09/16 TIME: 22:48 Assessment/Plan Assessment/Plan Additional Assessment/Plan 1. Acute kidney injury on possible previous chronic kidney disease with last creatinine known about 1.48 secondary to acute tubular necrosis from ischemic acute tubular necrosis from cardiogenic shock.- Improving with good urine output 2. Acute respiratory failure from cardiogenic shock, currently intubated on ventilator-s/p extubation 12/06/16 3. Acute non-ST elevation myocardial infarction, s/p v tach arrest s/p pci of RCA, possible staged procedure to LCx required s/p IABP, now off 4. History of possible chronic kidney disease secondary to diabetic nephropathy , unknown stage. 5. History of type 2 diabetes mellitus. 6. History of hypertension. 7. paroxysmal atrial fibrillation Plan: Na Trending up Cr1.45, making good urine output D/tony palmer catheter will monitor hematuria DNR, no indication for renal replacement therapy at this time plan is to d/c to SNF Consultation Date/Type/Reason Admit Date/Time Nov 19, 2016 at 16:09 Initial Consult Date Nov Type of Consultation: NEPHROLOGY Referring Provider: PIO VEGA Exam/Review of Systems Vital Signs Vitals Vital Signs Date Time Temp Pulse Resp B/P Pulse Ox O2 Delivery O2 Flow Rate FiO2 12/09/16 21:44 75 20 97 2.0 28 12/09/16 14:50 98.2 137/67 12/09/16 07:53 Nasal Cannula Intake and Output 12/08/16 12/08/16 12/09/16 15:00 23:00 07:00 Intake Total 150 ml 200 ml Output Total 700 ml 600 ml Balance -550 ml -400 ml Results Result Diagram: 12/09/16 0625 12/09/16 0625 Results 24 hrs Laboratory Tests Test 12/09/16 02:52 12/09/16 05:43 12/09/16 06:25 12/09/16 10:49 Bedside Glucose 102 112 116 White Blood Count 11.8 H Red Blood Count 3.75 L Hemoglobin 11.2 L Hematocrit 34.5 L Mean Corpuscular Volume 92.0 Mean Corpuscular Hemoglobin 29.9 Mean Corpuscular Hemoglobin Concent 32.5 Red Cell Distribution Width 15.1 H Platelet Count 330 Mean Platelet Volume 10.2 Neutrophils % 68.8 Lymphocytes % 18.8 Monocytes % 7.1 Eosinophils % 3.2 Basophils % 1.7 Nucleated Red Blood Cells % 0.0 Neutrophils # 8.1 H Lymphocytes # 2.2 Monocytes # 0.8 Eosinophils # 0.4 Basophils # 0.2 H Nucleated Red Blood Cells # 0.0 Sodium Level 146 H Potassium Level 3.6 Chloride Level 103 Carbon Dioxide Level 25 Anion Gap 22 #H Blood Urea Nitrogen 21 H Creatinine 1.43 H Glucose Level 112 Calcium Level 10.4 H Test 12/09/16 13:16 12/09/16 16:50 12/09/16 20:32 Bedside Glucose 112 99 102 Medications Medications Current Medications Ticagrelor (Brilinta) 90 mg BID PO Last administered on 12/09/16 20:34; Admin Dose 90 MG; Start 11/19/16 at 21:00 Ondansetron HCl (Zofran Inj) 4 mg Q6H PRN IV NAUSEA AND/OR VOMITING; Start 04/27 at 17:00 Acetaminophen (Tylenol Liquid) 650 mg Q6H PRN PO PAIN LEVEL 1-3 OR FEVER; Start 11/19/16 at 17:00 Acetaminophen (Tylenol Supp) 650 mg Q4H PRN [place] PAIN LEVEL 1-3 OR FEVER; Start 11/19/16 at 17:00 Docusate Sodium (Colace) 100 mg Q12H PRN PO CONSTIPATION; Start 11/19/16 at 17: 00 Magnesium Hydroxide (Milk Of Mag) 30 ml DAILY PRN PO CONSTIPATION Last administered on 11/29/16 09:23; Admin Dose 30 ML; Start 11/19/16 at 17:00 Bisacodyl (Dulcolax Supp) 10 mg DAILY PRN [place] CONSTIPATION Last administered on 11/29/16 09:23; Admin Dose 10 MG; Start 11/19/16 at 17:00 Famotidine (Pepcid Iv) 20 mg DAILY IV Last administered on 12/09/16 11:01; Admin Dose 20 MG; Start 11/19/16 at 17:00 Miscellaneous Information 1 ea NOTE XX ; Start 11/19/16 at 17:30 Glucose (Glutose) 15 gm Q15M PRN PO DECREASED GLUCOSE; Start 11/19/16 at 17:30 Glucose (Glutose) 22.5 gm Q15M PRN PO DECREASED GLUCOSE; Start 11/19/16 at 17: 30 Dextrose (D50w Syringe) 25 ml Q15M PRN IV DECREASED GLUCOSE Last administered on 12/03/16 20:15; Admin Dose 25 ML; Start 11/19/16 at 17:30 Dextrose (D50w Syringe) 50 ml Q15M PRN IV DECREASED GLUCOSE; Start 11/19/16 at 17:30 Glucagon (Glucagen) 1 mg Q15M PRN IM DECREASED GLUCOSE; Start 11/19/16 at 17:30 Glucose (Glutose) 15 gm Q15M PRN BUCCAL DECREASED GLUCOSE; Start 11/19/16 at 17 :30 Atorvastatin Calcium (Lipitor) 10 mg HS NGT Last administered on 12/09/16 20:30 ; Admin Dose 10 MG; Start 11/24/16 at 21:00 Mupirocin (Bactroban) 1 applic BID TOP Last administered on 12/09/16 20:36; Admin Dose 1 APPLIC; Start 11/27/16 at 09:30 Insulin Glargine (Lantus) 20 unit DAILY@20 SC Last administered on 12/09/16 20: 37; Admin Dose 20 UNIT; Start 11/27/16 at 20:00 Thiamine HCl (Vitamin B1) 100 mg DAILY IV Last administered on 12/09/16 10:52; Admin Dose 100 MG; Start 11/29/16 at 10:00 Folic Acid (Folic Acid) 1 mg DAILY NGT Last administered on 12/09/16 10:55; Admin Dose 1 MG; Start 11/29/16 at 10:00 Multivitamins (Multivitamin) 30 ml DAILY NGT Last administered on 12/09/16 10: 52; Admin Dose 30 ML; Start 11/29/16 at 10:30 Hydralazine HCl (Apresoline) 10 mg Q2 PRN IV For SBP >170; Start 12/04/16 at 00 :00 Aspirin (Aspirin) 300 mg DAILY NV Last administered on 12/07/16 08:39; Admin Dose 300 MG; Start 12/07/16 at 09:00 IV Flush (NS 10 ml) 10 ml PRN PRN IV IV PROTOCOL Last administered on 12/09/16 20:42; Admin Dose 10 ML; Start 12/08/16 at 16:00 Amiodarone HCl (Cordarone) 200 mg DAILY GTB ; Start 12/10/16 at 09:00 Captopril (Capoten) 25 mg TID NGT Last administered on 12/09/16t 20:42; Admin Dose 25 MG; Start 12/09/16 at 13:00 Diagnostic Test (Pha) (Accu-Chek) 1 ea 02 XX ; Start 12/09/16 at 13:30 FÁTIMA PERES MD Dec 09, 2016 22:50
[2016-12-10] VITALS (13 sets, daily range): BP systolic 102–156; BP diastolic 64–89; PULSE 40–66; RESP 17–20
[2016-12-10] MEDS: ACCUCHECK 2 AM XX SCH (01:22)
[2016-12-10] MEDS: LEVALBUTEROL (NEB) 0.63 MG/3 ML AMP HHN SCH ×4 (02:07→20:03)
[2016-12-10] MEDS: IPRATROPIUM (NEB) 0.5 MG/2.5 ML AMP HHN SCH ×4 (02:07→20:03)
[2016-12-10 06:45] LABS: BASOPHIL # 0.2 10^3/ul (0.0-0.1); BASOPHILS % 1.1 % (0.0-2.0); EOSINOPHILS # 0.4 10^3/ul (0.0-0.5); HEMATOCRIT 33.9 % (42.0-52.0); HEMOGLOBIN 10.8 g/dl (14.0-18.0); LYMPHOCYTES # 2.8 10^3/ul (0.8-2.9); LYMPHOCYTES % 21.1 % (15.0-51.0); MEAN CORPUSCULAR HEMOGLOBIN 29.3 pg (29.0-33.0); MEAN CORPUSCULAR HGB CONC 31.9 g/dl (32.0-37.0); MEAN CORPUSCULAR VOLUME 91.9 fl (82.0-101.0); MEAN PLATELET VOLUME 10.2 fl (7.4-10.4); MONOCYTE # 1.1 10^3/ul (0.3-0.9); MONOCYTES % 7.9 % (0.0-11.0); NEUTROPHIL # 8.9 10^3/ul (1.6-7.5); NEUTROPHILS % 66.4 % (39.0-77.0); PLATELET COUNT 328 10^3/UL (140-415); RED BLOOD COUNT 3.69 10^6/ul (4.70-6.10); RED CELL DISTRIBUTION WIDTH 15.6 % (11.5-14.5); WHITE BLOOD COUNT 13.4 10^3/ul (4.8-10.8)
[2016-12-10 07:13] LABS: ADD SCAN DIFF NO
[2016-12-10 07:16] LABS: CALCIUM 10.5 mg/dl (8.4-10.2); CREATININE 1.54 mg/dl (0.61-1.24); POTASSIUM 3.3 mmol/L (3.5-5.1)
[2016-12-10] MEDS: Insulin NOVOLOG SS MODERATE Algorithm (SS with meals and bedtime) SC SCH ×4 (07:42→21:00)
[2016-12-10] MEDS: AMIODARONE 200 MG TAB GTB SCH (09:28)
[2016-12-10] MEDS: MULTIVITAMINS 30 ML CUP NGT SCH (09:28)
[2016-12-10] MEDS: FOLIC ACID 1 MG TAB NGT SCH (09:28)
[2016-12-10] MEDS: ASPIRIN 81 MG TAB PO SCH (09:29)
[2016-12-10] MEDS: MUPIROCIN 2% 22 GM OINT TOP SCH ×2 (09:29→21:36)
[2016-12-10] MEDS: TICAGRELOR 90 MG TABLET PO SCH ×2 (09:30→21:40)
[2016-12-10] MEDS: FAMOTIDINE 20 MG INJ IV SCH (09:33)
--- NOTE | 2016-12-10 10:11 | PN ---
Date/Time of Note Date/Time of Note DATE: 12/10/16 TIME: 10:08 Assessment/Plan VTE Prophylaxis VTE Prophylaxis Intervention: other Lines/Catheters IV [facility]ter Type (from [facility]): PICC Line Central line still needed: Yes Urinary Cath still in place: No Assessment/Plan Assessment/Plan 1. cards: s/p v tach arrest x2 (b) stemi with stent tot lcx (c) ischemic cardiomyopathy with ef 40% (d) paroxysmal alfib (e) chf much improved 2 [id number] resp failure secondary to chf improving 3. toxic-metabolic encephalopathy improving 4. ischemic necrosis of toes secondary to pressors 5. monitor wbc, check for infectious sources 6. replete K 7./ plan d/c snf in am . Subjective 24 Hr Interval Summary Free Text/Dictation n o complaints, will answer questions Exam/Review of Systems Vital Signs Vitals Vital Signs Date Time Temp Pulse Resp B/P Pulse Ox O2 Delivery O2 Flow Rate FiO2 12/10/16 08:54 54 12/10/16 07:54 97 2.0 12/10/16 07:53 16 Nasal Cannula 12/10/16 07:09 98.3 138/73 12/10/16 02:11 28 Intake and Output 12/09/16 12/09/16 12/10/16 15:00 23:00 07:00 Intake Total 750 ml 800 ml Output Total 1300 ml 700 ml Balance -550 ml 100 ml Exam Constitutional: alert Eyes: nl conjunctiva Respiratory: clear to auscultation Cardiovascular: regular rate and rhythm Gastrointestinal: soft Results Result Diagram: 12/10/16 0555 12/10/16 0555 Results 24 hrs Laboratory Tests Test 12/09/16 10:49 12/09/16 13:16 12/09/16 16:50 12/09/16 20:32 Bedside Glucose 116 112 99 102 Test 12/10/16 01:30 12/10/16 05:55 12/10/16 07:41 Bedside Glucose 87 110 White Blood Count 13.4 H Red Blood Count 3.69 L Hemoglobin 10.8 L Hematocrit 33.9 L Mean Corpuscular Volume 91.9 Mean Corpuscular Hemoglobin 29.3 Mean Corpuscular Hemoglobin Concent 31.9 L Red Cell Distribution Width 15.6 H Platelet Count 328 Mean Platelet Volume 10.2 Neutrophils % 66.4 Lymphocytes % 21.1 Monocytes % 7.9 Eosinophils % 3.0 Basophils % 1.1 Nucleated Red Blood Cells % 0.0 Neutrophils # 8.9 H Lymphocytes # 2.8 Monocytes # 1.1 H Eosinophils # 0.4 Basophils # 0.2 H Nucleated Red Blood Cells # 0.0 Sodium Level 144 Potassium Level 3.3 L Chloride Level 103 Carbon Dioxide Level 25 Anion Gap 19 H Blood Urea Nitrogen 25 H Creatinine 1.54 H Glucose Level 119 Calcium Level 10.5 H Medications Medications Current Medications Ticagrelor (Brilinta) 90 mg BID PO Last administered on 12/10/16 09:30; Admin Dose 90 MG; Start 11/19/16 at 21:00 Ondansetron HCl (Zofran Inj) 4 mg Q6H PRN IV NAUSEA AND/OR VOMITING; Start 04/27 at 17:00 Acetaminophen (Tylenol Liquid) 650 mg Q6H PRN PO PAIN LEVEL 1-3 OR FEVER Last administered on 12/10/16 03:59; Admin Dose 650 MG; Start 11/19/16 at 17:00 Acetaminophen (Tylenol Supp) 650 mg Q4H PRN [place] PAIN LEVEL 1-3 OR FEVER; Start 11/19/16 at 17:00 Docusate Sodium (Colace) 100 mg Q12H PRN PO CONSTIPATION; Start 11/19/16 at 17: 00 Magnesium Hydroxide (Milk Of Mag) 30 ml DAILY PRN PO CONSTIPATION Last administered on 11/29/16 09:23; Admin Dose 30 ML; Start 11/19/16 at 17:00 Bisacodyl (Dulcolax Supp) 10 mg DAILY PRN [place] CONSTIPATION Last administered on 11/29/16 09:23; Admin Dose 10 MG; Start 11/19/16 at 17:00 Famotidine (Pepcid Iv) 20 mg DAILY IV Last administered on 12/10/16 09:33; Admin Dose 20 MG; Start 11/19/16 at 17:00 Miscellaneous Information 1 ea NOTE XX ; Start 11/19/16 at 17:30 Glucose (Glutose) 15 gm Q15M PRN PO DECREASED GLUCOSE; Start 11/19/16 at 17:30 Glucose (Glutose) 22.5 gm Q15M PRN PO DECREASED GLUCOSE; Start 11/19/16 at 17: 30 Dextrose (D50w Syringe) 25 ml Q15M PRN IV DECREASED GLUCOSE Last administered on 12/03/16 20:15; Admin Dose 25 ML; Start 11/19/16 at 17:30 Dextrose (D50w Syringe) 50 ml Q15M PRN IV DECREASED GLUCOSE; Start 11/19/16 at 17:30 Glucagon (Glucagen) 1 mg Q15M PRN IM DECREASED GLUCOSE; Start 11/19/16 at 17:30 Glucose (Glutose) 15 gm Q15M PRN BUCCAL DECREASED GLUCOSE; Start 11/19/16 at 17 :30 Atorvastatin Calcium (Lipitor) 10 mg HS NGT Last administered on 12/09/16 20:30 ; Admin Dose 10 MG; Start 11/24/16 at 21:00 Mupirocin (Bactroban) 1 applic BID TOP Last administered on 12/10/16 09:29; Admin Dose 1 APPLIC; Start 11/27/16 at 09:30 Insulin Glargine (Lantus) 20 unit DAILY@20 SC Last administered on 12/09/16 20: 37; Admin Dose 20 UNIT; Start 11/27/16 at 20:00 Thiamine HCl (Vitamin B1) 100 mg DAILY IV Last administered on 12/09/16 10:52; Admin Dose 100 MG; Start 11/29/16 at 10:00 Folic Acid (Folic Acid) 1 mg DAILY NGT Last administered on 12/10/16 09:28; Admin Dose 1 MG; Start 11/29/16 at 10:00 Multivitamins (Multivitamin) 30 ml DAILY NGT Last administered on 12/10/16 09: 28; Admin Dose 30 ML; Start 11/29/16 at 10:30 Hydralazine HCl (Apresoline) 10 mg Q2 PRN IV For SBP >170; Start 12/04/16 at 00 :00 IV Flush (NS 10 ml) 10 ml PRN PRN IV IV PROTOCOL Last administered on 12/09/16 20:42; Admin Dose 10 ML; Start 12/08/16 at 16:00 Amiodarone HCl (Cordarone) 200 mg DAILY GTB Last administered on 12/10/16 09:28 ; Admin Dose 200 MG; Start 12/10/16 at 09:00 Captopril (Capoten) 25 mg TID NGT Last administered on 7/2/17at 09:29; Admin Dose 25 MG; Start 12/09/16 at 13:00 Diagnostic Test (Pha) (Accu-Chek) 1 ea 02 XX Last administered on 12/10/16 01: 22; Admin Dose 1 EA; Start 12/09/16 at 13:30 Aspirin (Aspirin) 81 mg DAILY PO Last administered on 12/10/16 09:29; Admin Dose 81 MG; Start 12/10/16 at 09:00 RODRIGO HENLEY MD Dec 10, 2016 10:11
[2016-12-10] MEDS: POTASSIUM CHLORIDE (SR) 20 MEQ TAB PO SCH ×3 (12:20→21:35)
--- NOTE | 2016-12-10 12:59 | PN ---
Date/Time of Note Date/Time of Note DATE: 12/10/16 TIME: 12:57 Assessment/Plan VTE Prophylaxis VTE Prophylaxis Intervention: other Lines/Catheters IV Catheter Type (from Nrs): PICC Line Central line still needed: Yes Urinary Cath still in place: No Assessment/Plan Chief Complaint/Hosp Course ASSESSMENT AND PLAN: 1. Status post ST elevation myocardial infarction, status post cardiac arrest secondary to ventricular tachycardia secondary to above. 2. Status post percutaneous coronary intervention of left circumflex artery. 3. Renal failure. Appears to be acute on chronic. Currently has improved significantly. 4. Congestive heart failure. 5. Recurrence of sustained ventricular tachycardia. 6. Paroxysmal atrial fibrillation. 7. Severe encephalopathy. 8. Dyslipidemia. 9. Hypertension, 10. resp failure: extubated on 12/06/16 11. episodes of marked sinus bradycardia at night: ? [place] RECOMMENDATIONS: We will continue with current cardiac care low dose amiodarone ASA brilinta statin lisinopril qd CONSIDER CPAP at night time if he agrees to it. Problems: Subjective 24 Hr Interval Summary Free Text/Dictation d/w staff adn rhythm was reviewed. pt remains in NSR, sinus bradycardia with very short P AFIB pt with marked sinus sheba during sleep Exam/Review of Systems Vital Signs Vitals Vital Signs Date Time Temp Pulse Resp B/P Pulse Ox O2 Delivery O2 Flow Rate FiO2 12/10/16 11:38 98.0 59 17 121/66 95 12/10/16 07:54 2.0 12/10/16 07:53 Nasal Cannula 12/10/16 02:11 28 Intake and Output 12/09/16 12/09/16 12/10/16 15:00 23:00 07:00 Intake Total 750 ml 800 ml Output Total 1300 ml 700 ml Balance -550 ml 100 ml Exam NEURO: awake but lethargic. responds appropriately. able to tell me his name but not location. vascular: + necrosis of toes. Constitutional: awake no distress,, obese, Psych: agitated Head: atraumatic, normocephalic Eyes: EOMI, nl conjunctiva Neck: non-tender. no strider Respiratory: no wheezes. Cardiovascular: regular rate and rhythm Gastrointestinal: non-tender, soft Extremities: Trace LE edema Neurological: awake. alert, OX1 only. Results Result Diagram: 12/10/1655 12/10/16554 Results 24 hrs Laboratory Tests Test 12/09/16 13:16 12/09/16 16:50 12/09/16 20:32 12/10/16 01:30 Bedside Glucose 112 99 102 87 Test 12/10/16 05:55 12/10/16 07:41 12/10/16 12:11 White Blood Count 13.4 H Red Blood Count 3.69 L Hemoglobin 10.8 L Hematocrit 33.9 L Mean Corpuscular Volume 91.9 Mean Corpuscular Hemoglobin 29.3 Mean Corpuscular Hemoglobin Concent 31.9 L Red Cell Distribution Width 15.6 H Platelet Count 328 Mean Platelet Volume 10.2 Neutrophils % 66.4 Lymphocytes % 21.1 Monocytes % 7.9 Eosinophils % 3.0 Basophils % 1.1 Nucleated Red Blood Cells % 0.0 Neutrophils # 8.9 H Lymphocytes # 2.8 Monocytes # 1.1 H Eosinophils # 0.4 Basophils # 0.2 H Nucleated Red Blood Cells # 0.0 Sodium Level 144 Potassium Level 3.3 L Chloride Level 103 Carbon Dioxide Level 25 Anion Gap 19 H Blood Urea Nitrogen 25 H Creatinine 1.54 H Glucose Level 119 Calcium Level 10.5 H Bedside Glucose 110 144 Medications Medications Current Medications Ticagrelor (Brilinta) 90 mg BID PO Last administered on 12/10/16 09:30; Admin Dose 90 MG; Start 11/19/16 at 21:00 Ondansetron HCl (Zofran Inj) 4 mg Q6H PRN IV NAUSEA AND/OR VOMITING; Start 04/27 at 17:00 Acetaminophen (Tylenol Liquid) 650 mg Q6H PRN PO PAIN LEVEL 1-3 OR FEVER Last administered on 12/10/16 03:59; Admin Dose 650 MG; Start 11/19/16 at 17:00 Acetaminophen (Tylenol Supp) 650 mg Q4H PRN [place] PAIN LEVEL 1-3 OR FEVER; Start 11/19/16 at 17:00 Docusate Sodium (Colace) 100 mg Q12H PRN PO CONSTIPATION; Start 11/19/16 at 17: 00 Magnesium Hydroxide (Milk Of Mag) 30 ml DAILY PRN PO CONSTIPATION Last administered on 11/29/16 09:23; Admin Dose 30 ML; Start 11/19/16 at 17:00 Bisacodyl (Dulcolax Supp) 10 mg DAILY PRN [place] CONSTIPATION Last administered on 11/29/16 09:23; Admin Dose 10 MG; Start 11/19/16 at 17:00 Famotidine (Pepcid Iv) 20 mg DAILY IV Last administered on 12/10/16 09:33; Admin Dose 20 MG; Start 11/19/16 at 17:00 Miscellaneous Information 1 ea NOTE XX ; Start 11/19/16 at 17:30 Glucose (Glutose) 15 gm Q15M PRN PO DECREASED GLUCOSE; Start 11/19/16 at 17:30 Glucose (Glutose) 22.5 gm Q15M PRN PO DECREASED GLUCOSE; Start 11/19/16 at 17: 30 Dextrose (D50w Syringe) 25 ml Q15M PRN IV DECREASED GLUCOSE Last administered on 12/03/16 20:15; Admin Dose 25 ML; Start 11/19/16 at 17:30 Dextrose (D50w Syringe) 50 ml Q15M PRN IV DECREASED GLUCOSE; Start 11/19/16 at 17:30 Glucagon (Glucagen) 1 mg Q15M PRN IM DECREASED GLUCOSE; Start 11/19/16 at 17:30 Glucose (Glutose) 15 gm Q15M PRN BUCCAL DECREASED GLUCOSE; Start 11/19/16 at 17 :30 Atorvastatin Calcium (Lipitor) 10 mg HS NGT Last administered on 12/09/16 20:30 ; Admin Dose 10 MG; Start 11/24/16 at 21:00 Mupirocin (Bactroban) 1 applic BID TOP Last administered on 12/10/16 09:29; Admin Dose 1 APPLIC; Start 11/27/16 at 09:30 Insulin Glargine (Lantus) 20 unit DAILY@20 SC Last administered on 12/09/16 20: 37; Admin Dose 20 UNIT; Start 11/27/16 at 20:00 Thiamine HCl (Vitamin B1) 100 mg DAILY IV Last administered on 12/09/16 10:52; Admin Dose 100 MG; Start 11/29/16 at 10:00 Folic Acid (Folic Acid) 1 mg DAILY NGT Last administered on 12/10/16 09:28; Admin Dose 1 MG; Start 11/29/16 at 10:00 Multivitamins (Multivitamin) 30 ml DAILY NGT Last administered on 12/10/16 09: 28; Admin Dose 30 ML; Start 11/29/16 at 10:30 Hydralazine HCl (Apresoline) 10 mg Q2 PRN IV For SBP >170; Start 12/04/16 at 00 :00 IV Flush (NS 10 ml) 10 ml PRN PRN IV IV PROTOCOL Last administered on 12/09/16 20:42; Admin Dose 10 ML; Start 12/08/16 at 16:00 Amiodarone HCl (Cordarone) 200 mg DAILY GTB Last administered on 12/10/16 09:28 ; Admin Dose 200 MG; Start 12/10/16 at 09:00 Captopril (Capoten) 25 mg TID NGT Last administered on 12/10/16 09:29; Admin Dose 25 MG; Start 12/09/16 at 13:00 Diagnostic Test (Pha) (Accu-Chek) 1 ea 02 XX Last administered on 12/10/16 01: 22; Admin Dose 1 EA; Start 12/09/16 at 13:30 Aspirin (Aspirin) 81 mg DAILY PO Last administered on 12/10/16 09:29; Admin Dose 81 MG; Start 12/10/16 at 09:00 Potassium Chloride (Klor-Con 20) 40 meq Q4H PO Last administered on 12/10/16 12 :20; Admin Dose 40 MEQ; Start 12/10/16 at 10:30; Stop 12/10/16 at 18:31 Quetiapine Fumarate (Seroquel) 25 mg Q4H PRN PO agitation; Start 12/10/16 at 10: 30 SERENA ALCARAZ MD Dec 10, 2016 12:59
--- NOTE | 2016-12-10 13:36 | CONS ---
Date/Time of Note Date/Time of Note DATE: 12/10/16 TIME: 13:35 Assessment/Plan Assessment/Plan Additional Assessment/Plan 1. Acute kidney injury on possible previous chronic kidney disease with last creatinine known about 1.48 secondary to acute tubular necrosis from ischemic acute tubular necrosis from cardiogenic shock.- Improving with good urine output 2. Acute respiratory failure from cardiogenic shock, currently intubated on ventilator-s/p extubation 12/06/16 3. Acute non-ST elevation myocardial infarction, s/p v tach arrest s/p pci of RCA, possible staged procedure to LCx required s/p IABP, now off 4. History of possible chronic kidney disease secondary to diabetic nephropathy , unknown stage. 5. History of type 2 diabetes mellitus. 6. History of hypertension. 7. paroxysmal atrial fibrillation Plan: Cr 1.54, K 3.0- KCL replacement ordered for today DNR, CXR today no indication for renal replacement therapy at this time plan is to d/c to SNF Consultation Date/Type/Reason Admit Date/Time Nov 19, 2016 at 16:09 Initial Consult Date Nov Type of Consultation: NEPHROLOGY Referring Provider: PIO VEGA 24 HR Interval Summary Free Text/Dictation K 3.3, Cr 1.54, BP stable Exam/Review of Systems Vital Signs Vitals Vital Signs Date Time Temp Pulse Resp B/P Pulse Ox O2 Delivery O2 Flow Rate FiO2 12/10/16 12:57 62 12/10/16 11:38 98.0 17 121/66 95 12/10/16 07:54 2.0 12/10/16 07:53 Nasal Cannula 12/10/16 02:11 28 Intake and Output 12/09/16 12/09/16 12/10/16 15:00 23:00 07:00 Intake Total 750 ml 800 ml Output Total 1300 ml 700 ml Balance -550 ml 100 ml Exam GENERAL:s/p extubation, awake, getting CXR now NECK: supple, no JVD LUNGS: Bilateral crackles +no wheezing HEART: S1, S2, tachycardia, no murmur. ABDOMEN: Soft, morbidly obese. EXTREMITIES: 1+ pitting edema. No clubbing, cyanosis Results Result Diagram: 12/10/16 0555 12/10/16 0555 Results 24 hrs Laboratory Tests Test 12/09/16 16:50 12/09/16 20:32 12/10/16 01:30 12/10/16 05:55 Bedside Glucose 99 102 87 White Blood Count 13.4 H Red Blood Count 3.69 L Hemoglobin 10.8 L Hematocrit 33.9 L Mean Corpuscular Volume 91.9 Mean Corpuscular Hemoglobin 29.3 Mean Corpuscular Hemoglobin Concent 31.9 L Red Cell Distribution Width 15.6 H Platelet Count 328 Mean Platelet Volume 10.2 Neutrophils % 66.4 Lymphocytes % 21.1 Monocytes % 7.9 Eosinophils % 3.0 Basophils % 1.1 Nucleated Red Blood Cells % 0.0 Neutrophils # 8.9 H Lymphocytes # 2.8 Monocytes # 1.1 H Eosinophils # 0.4 Basophils # 0.2 H Nucleated Red Blood Cells # 0.0 Sodium Level 144 Potassium Level 3.3 L Chloride Level 103 Carbon Dioxide Level 25 Anion Gap 19 H Blood Urea Nitrogen 25 H Creatinine 1.54 H Glucose Level 119 Calcium Level 10.5 H Test 12/10/16 07:41 12/10/16 12:11 Bedside Glucose 110 144 Medications Medications Current Medications Ticagrelor (Brilinta) 90 mg BID PO Last administered on 12/10/16 09:30; Admin Dose 90 MG; Start 11/19/16 at 21:00 Ondansetron HCl (Zofran Inj) 4 mg Q6H PRN IV NAUSEA AND/OR VOMITING; Start 04/27 at 17:00 Acetaminophen (Tylenol Liquid) 650 mg Q6H PRN PO PAIN LEVEL 1-3 OR FEVER Last administered on 12/10/16 03:59; Admin Dose 650 MG; Start 11/19/16 at 17:00 Acetaminophen (Tylenol Supp) 650 mg Q4H PRN [place] PAIN LEVEL 1-3 OR FEVER; Start 11/19/16 at 17:00 Docusate Sodium (Colace) 100 mg Q12H PRN PO CONSTIPATION; Start 11/19/16 at 17: 00 Magnesium Hydroxide (Milk Of Mag) 30 ml DAILY PRN PO CONSTIPATION Last administered on 11/29/16 09:23; Admin Dose 30 ML; Start 11/19/16 at 17:00 Bisacodyl (Dulcolax Supp) 10 mg DAILY PRN [place] CONSTIPATION Last administered on 11/29/16 09:23; Admin Dose 10 MG; Start 11/19/16 at 17:00 Famotidine (Pepcid Iv) 20 mg DAILY IV Last administered on 12/10/16 09:33; Admin Dose 20 MG; Start 11/19/16 at 17:00 Miscellaneous Information 1 ea NOTE XX ; Start 11/19/16 at 17:30 Glucose (Glutose) 15 gm Q15M PRN PO DECREASED GLUCOSE; Start 11/19/16 at 17:30 Glucose (Glutose) 22.5 gm Q15M PRN PO DECREASED GLUCOSE; Start 11/19/16 at 17: 30 Dextrose (D50w Syringe) 25 ml Q15M PRN IV DECREASED GLUCOSE Last administered on 12/03/16 20:15; Admin Dose 25 ML; Start 11/19/16 at 17:30 Dextrose (D50w Syringe) 50 ml Q15M PRN IV DECREASED GLUCOSE; Start 11/19/16 at 17:30 Glucagon (Glucagen) 1 mg Q15M PRN IM DECREASED GLUCOSE; Start 11/19/16 at 17:30 Glucose (Glutose) 15 gm Q15M PRN BUCCAL DECREASED GLUCOSE; Start 11/19/16 at 17 :30 Atorvastatin Calcium (Lipitor) 10 mg HS NGT Last administered on 12/09/16 20:30 ; Admin Dose 10 MG; Start 11/24/16 at 21:00 Mupirocin (Bactroban) 1 applic BID TOP Last administered on 12/10/16 09:29; Admin Dose 1 APPLIC; Start 11/27/16 at 09:30 Insulin Glargine (Lantus) 20 unit DAILY@20 SC Last administered on 12/09/16 20: 37; Admin Dose 20 UNIT; Start 11/27/16 at 20:00 Thiamine HCl (Vitamin B1) 100 mg DAILY IV Last administered on 12/09/16 10:52; Admin Dose 100 MG; Start 11/29/16 at 10:00 Folic Acid (Folic Acid) 1 mg DAILY NGT Last administered on 12/10/16 09:28; Admin Dose 1 MG; Start 11/29/16 at 10:00 Multivitamins (Multivitamin) 30 ml DAILY NGT Last administered on 12/10/16 09: 28; Admin Dose 30 ML; Start 11/29/16 at 10:30 Hydralazine HCl (Apresoline) 10 mg Q2 PRN IV For SBP >170; Start 12/04/16 at 00 :00 IV Flush (NS 10 ml) 10 ml PRN PRN IV IV PROTOCOL Last administered on 12/09/16 20:42; Admin Dose 10 ML; Start 12/08/16 at 16:00 Amiodarone HCl (Cordarone) 200 mg DAILY GTB Last administered on 12/10/16 09:28 ; Admin Dose 200 MG; Start 12/10/16 at 09:00 Diagnostic Test (Pha) (Accu-Chek) 1 ea 02 XX Last administered on 12/10/16 01: 22; Admin Dose 1 EA; Start 12/09/16 at 13:30 Aspirin (Aspirin) 81 mg DAILY PO Last administered on 12/10/16 09:29; Admin Dose 81 MG; Start 12/10/16 at 09:00 Potassium Chloride (Klor-Con 20) 40 meq Q4H PO Last administered on 12/10/16 12 :20; Admin Dose 40 MEQ; Start 12/10/16 at 10:30; Stop 12/10/16 at 18:31 Quetiapine Fumarate (Seroquel) 25 mg Q4H PRN PO agitation; Start 12/10/16 at 10: 30 Lisinopril (Zestril) 20 mg BID PO ; Start 12/10/16 at 21:00 FÁTIMA PERES MD Dec 10, 2016 13:36
[2016-12-10] MEDS: THIAMINE 200 MG INJ IV SCH (13:52)
--- NOTE | 2016-12-10 13:55 | CONS ---
Date/Time of Note Date/Time of Note DATE: 12/10/16 TIME: 13:54 Consult Date/Type/Reason Admit Date/Time Nov 19, 2016 at 16:09 Type of Consultation: Pulm Ordering Provider: PIO VEGA Subjective No events. Objective Vital Signs Date Time Temp Pulse Resp B/P Pulse Ox O2 Delivery O2 Flow Rate FiO2 12/10/16 12:57 62 12/10/16 11:38 98.0 17 121/66 95 12/10/16 07:54 2.0 12/10/16 07:53 Nasal Cannula 12/10/16 02:11 28 Intake and Output 12/09/16 12/09/16 12/10/16 15:00 23:00 07:00 Intake Total 750 ml 800 ml Output Total 1300 ml 700 ml Balance -550 ml 100 ml Exam HEENT: Neck supple; no JVD; no LAD CVS: RRR, S1 and S2 CHEST: Clear ABD: Soft, NT, + BS EXT: No c/c/e Results/Medications Result Diagram: 12/10/16 0555 12/10/16 0555 Results 24 hrs Laboratory Tests Test 12/09/16 16:50 12/09/16 20:32 12/10/16 01:30 12/10/16 05:55 Bedside Glucose 99 102 87 White Blood Count 13.4 H Red Blood Count 3.69 L Hemoglobin 10.8 L Hematocrit 33.9 L Mean Corpuscular Volume 91.9 Mean Corpuscular Hemoglobin 29.3 Mean Corpuscular Hemoglobin Concent 31.9 L Red Cell Distribution Width 15.6 H Platelet Count 328 Mean Platelet Volume 10.2 Neutrophils % 66.4 Lymphocytes % 21.1 Monocytes % 7.9 Eosinophils % 3.0 Basophils % 1.1 Nucleated Red Blood Cells % 0.0 Neutrophils # 8.9 H Lymphocytes # 2.8 Monocytes # 1.1 H Eosinophils # 0.4 Basophils # 0.2 H Nucleated Red Blood Cells # 0.0 Sodium Level 144 Potassium Level 3.3 L Chloride Level 103 Carbon Dioxide Level 25 Anion Gap 19 H Blood Urea Nitrogen 25 H Creatinine 1.54 H Glucose Level 119 Calcium Level 10.5 H Test 12/10/16 07:41 12/10/16 12:11 Bedside Glucose 110 144 Medications Current Medications Ticagrelor (Brilinta) 90 mg BID PO Last administered on 12/10/16 09:30; Admin Dose 90 MG; Start 11/19/16 at 21:00 Ondansetron HCl (Zofran Inj) 4 mg Q6H PRN IV NAUSEA AND/OR VOMITING; Start 04/27 at 17:00 Acetaminophen (Tylenol Liquid) 650 mg Q6H PRN PO PAIN LEVEL 1-3 OR FEVER Last administered on 12/10/16 03:59; Admin Dose 650 MG; Start 11/19/16 at 17:00 Acetaminophen (Tylenol Supp) 650 mg Q4H PRN [place] PAIN LEVEL 1-3 OR FEVER; Start 11/19/16 at 17:00 Docusate Sodium (Colace) 100 mg Q12H PRN PO CONSTIPATION; Start 11/19/16 at 17: 00 Magnesium Hydroxide (Milk Of Mag) 30 ml DAILY PRN PO CONSTIPATION Last administered on 11/29/16 09:23; Admin Dose 30 ML; Start 11/19/16 at 17:00 Bisacodyl (Dulcolax Supp) 10 mg DAILY PRN [place] CONSTIPATION Last administered on 11/29/16 09:23; Admin Dose 10 MG; Start 11/19/16 at 17:00 Famotidine (Pepcid Iv) 20 mg DAILY IV Last administered on 12/10/16 09:33; Admin Dose 20 MG; Start 11/19/16 at 17:00 Miscellaneous Information 1 ea NOTE XX ; Start 11/19/16 at 17:30 Glucose (Glutose) 15 gm Q15M PRN PO DECREASED GLUCOSE; Start 11/19/16 at 17:30 Glucose (Glutose) 22.5 gm Q15M PRN PO DECREASED GLUCOSE; Start 11/19/16 at 17: 30 Dextrose (D50w Syringe) 25 ml Q15M PRN IV DECREASED GLUCOSE Last administered on 12/03/16 20:15; Admin Dose 25 ML; Start 11/19/16 at 17:30 Dextrose (D50w Syringe) 50 ml Q15M PRN IV DECREASED GLUCOSE; Start 11/19/16 at 17:30 Glucagon (Glucagen) 1 mg Q15M PRN IM DECREASED GLUCOSE; Start 11/19/16 at 17:30 Glucose (Glutose) 15 gm Q15M PRN BUCCAL DECREASED GLUCOSE; Start 11/19/16 at 17 :30 Atorvastatin Calcium (Lipitor) 10 mg HS NGT Last administered on 12/09/16 20:30 ; Admin Dose 10 MG; Start 11/24/16 at 21:00 Mupirocin (Bactroban) 1 applic BID TOP Last administered on 12/10/16 09:29; Admin Dose 1 APPLIC; Start 11/27/16 at 09:30 Insulin Glargine (Lantus) 20 unit DAILY@20 SC Last administered on 12/09/16 20: 37; Admin Dose 20 UNIT; Start 11/27/16 at 20:00 Thiamine HCl (Vitamin B1) 100 mg DAILY IV Last administered on 12/09/16 10:52; Admin Dose 100 MG; Start 11/29/16 at 10:00 Folic Acid (Folic Acid) 1 mg DAILY NGT Last administered on 12/10/16 09:28; Admin Dose 1 MG; Start 11/29/16 at 10:00 Multivitamins (Multivitamin) 30 ml DAILY NGT Last administered on 12/10/16 09: 28; Admin Dose 30 ML; Start 11/29/16 at 10:30 Hydralazine HCl (Apresoline) 10 mg Q2 PRN IV For SBP >170; Start 12/04/16 at 00 :00 IV Flush (NS 10 ml) 10 ml PRN PRN IV IV PROTOCOL Last administered on 12/09/16 20:42; Admin Dose 10 ML; Start 12/08/16 at 16:00 Amiodarone HCl (Cordarone) 200 mg DAILY GTB Last administered on 12/10/16 09:28 ; Admin Dose 200 MG; Start 12/10/16 at 09:00 Diagnostic Test (Pha) (Accu-Chek) 1 ea 02 XX Last administered on 12/10/16 01: 22; Admin Dose 1 EA; Start 12/09/16 at 13:30 Aspirin (Aspirin) 81 mg DAILY PO Last administered on 12/10/16 09:29; Admin Dose 81 MG; Start 12/10/16 at 09:00 Potassium Chloride (Klor-Con 20) 40 meq Q4H PO Last administered on 12/10/16 12 :20; Admin Dose 40 MEQ; Start 12/10/16 at 10:30; Stop 12/10/16 at 18:31 Quetiapine Fumarate (Seroquel) 25 mg Q4H PRN PO agitation; Start 12/10/16 at 10: 30 Lisinopril (Zestril) 20 mg BID PO ; Start 12/10/16 at 21:00 Assessment/Plan Additional Assessment/Plan IMP: 1. Status post ST elevation myocardial infarction, status post cardiac arrest secondary to ventricular tachycardia secondary to above. 2. Status post percutaneous coronary intervention of left circumflex artery. 3. Renal failure. 4. Congestive heart failure. 5. Encephalopathy RECS: 1. PT/OT; mobilize OOB 2. BD's prn 3. Stable for SNF from a pulm perspective SHERRY FELIPE MD Dec 10, 2016 13:55
--- NOTE | 2016-12-10 15:49 | RADRPT ---
PROCEDURE: XR Chest 1 view. CLINICAL INDICATION: Shortness of breath. TECHNIQUE: AP views of the chest were obtained. COMPARISON: December 08, 2016 FINDINGS: The heart is large. Calcified atherosclerosis is noted in the aorta. Right PICC line is stable. Ri ght-sided central line has been removed. The lungs are hypoinflated. Elevation right hemidiaphragm is stable. Central pulmonary vascular congestion has decreased. Scattered atelectasis is noted in both lungs. No consolidations are identified. No pneumothorax is seen. Osseous structures are int act. IMPRESSION: Cardiomegaly with calcified atherosclerosis in the aorta. Interval decrease in central pulmonary vascular congestion. Scattered subsegmental atelectasis in both lungs. Hypoinflated lungs with stable elevation of the right hemidiaphragm. RPTAT: AA .William Beckwith MD, MD Date Time Electronically viewed and signed by .William Beckwith MD, on 12/10/2016 15:48 .P/
[2016-12-10] MEDS ORDERED: HALOPERIDOL 5 MG INJ IV PRN (20:30)
[2016-12-10] MEDS ORDERED: HALOPERIDOL 5 MG INJ IM PRN (20:30)
[2016-12-10] MEDS: HALOPERIDOL 5 MG INJ IV PRN (20:53)
[2016-12-10] MEDS: ATORVASTATIN 10 MG TAB NGT SCH (21:35)
[2016-12-10] MEDS: LISINOPRIL 20 MG TAB PO SCH (21:36)
[2016-12-10] MEDS: INSULIN GLARGINE [LANtus] 3 ML PEN SC SCH (21:40)
[2016-12-11] VITALS (14 sets, daily range): BP systolic 126–179; BP diastolic 79–97; PULSE 34–73; RESP 16–22
[2016-12-11] MEDS: ACCUCHECK 2 AM XX SCH (01:31)
[2016-12-11] MEDS: IPRATROPIUM (NEB) 0.5 MG/2.5 ML AMP HHN SCH ×4 (02:00→20:00)
[2016-12-11] MEDS: LEVALBUTEROL (NEB) 0.63 MG/3 ML AMP HHN SCH ×4 (02:00→20:00)
[2016-12-11] MEDS: HALOPERIDOL 5 MG INJ IV PRN (05:32)
[2016-12-11] MEDS: Insulin NOVOLOG SS MODERATE Algorithm (SS with meals and bedtime) SC SCH ×4 (07:55→21:00)
[2016-12-11] MEDS: FOLIC ACID 1 MG TAB NGT SCH (08:27)
[2016-12-11] MEDS: LISINOPRIL 20 MG TAB PO SCH ×2 (08:27→21:19)
[2016-12-11] MEDS: AMIODARONE 200 MG TAB GTB SCH (08:27)
[2016-12-11] MEDS: ASPIRIN 81 MG TAB PO SCH (08:28)
[2016-12-11] MEDS: FAMOTIDINE 20 MG INJ IV SCH (08:28)
[2016-12-11] MEDS: THIAMINE 200 MG INJ IV SCH (08:28)
[2016-12-11] MEDS: MULTIVITAMINS 30 ML CUP NGT SCH (08:28)
[2016-12-11] MEDS: TICAGRELOR 90 MG TABLET PO SCH ×2 (08:30→21:24)
[2016-12-11] MEDS: MUPIROCIN 2% 22 GM OINT TOP SCH ×2 (08:33→21:18)
[2016-12-11 09:35] LABS: ADD SCAN DIFF NO
[2016-12-11 10:04] LABS: ALBUMIN/GLOBULIN RATIO 1.17; BILIRUBIN,INDIRECT 0.4 mg/dl (0-1.1); BILIRUBIN,TOTAL 0.4 mg/dl (0.2-1.3); CALCIUM 10.2 mg/dl (8.4-10.2); CREATININE 1.47 mg/dl (0.61-1.24); MAGNESIUM 1.8 mg/dl (1.7-2.5); POTASSIUM 3.7 mmol/L (3.5-5.1); TOTAL PROTEIN 7.4 g/dl (6.1-8.1)
[2016-12-11 10:28] LABS: BASOPHIL # 0.2 10^3/ul (0.0-0.1); BASOPHILS % 1.5 % (0.0-2.0); EOSINOPHILS # 0.7 10^3/ul (0.0-0.5); EOSINOPHILS % 5.6 % (0.0-7.0); HEMATOCRIT 34.9 % (42.0-52.0); HEMOGLOBIN 11.6 g/dl (14.0-18.0); LYMPHOCYTES # 3.7 10^3/ul (0.8-2.9); LYMPHOCYTES % 28.1 % (15.0-51.0); MEAN CORPUSCULAR HEMOGLOBIN 30.9 pg (29.0-33.0); MEAN CORPUSCULAR HGB CONC 33.2 g/dl (32.0-37.0); MEAN CORPUSCULAR VOLUME 93.1 fl (82.0-101.0); MEAN PLATELET VOLUME 10.5 fl (7.4-10.4); MONOCYTE # 1.1 10^3/ul (0.3-0.9); MONOCYTES % 8.2 % (0.0-11.0); NEUTROPHIL # 7.3 10^3/ul (1.6-7.5); NEUTROPHILS % 56.1 % (39.0-77.0); PLATELET COUNT 317 10^3/UL (140-415); RED BLOOD COUNT 3.75 10^6/ul (4.70-6.10); RED CELL DISTRIBUTION WIDTH 15.9 % (11.5-14.5)
--- NOTE | 2016-12-11 10:28 | PN ---
Date/Time of Note Date/Time of Note DATE: 12/11/16 TIME: 10:21 Assessment/Plan VTE Prophylaxis VTE Prophylaxis Intervention: other Lines/Catheters IV Catheter Type (from Nrs): PICC Line Central line still needed: No Urinary Cath still in place: No Assessment/Plan Assessment/Plan 1. cards: s/p stemi and stent to lcx (b) v tach arrest x2 (c) ischemic cardiomyopathy, spot with lasix as needed (d) paroxysmal a fib, cont current, change to anticoagulation and d/c asa at time of dc 2. toxic metabolic encephalopathy, attempt to ameliorate with schedukled and PRN seroquel 3. 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 increase activity Subjective 24 Hr Interval Summary Free Text/Dictation states that he is hungry and cold no oob not interactive in interview Exam/Review of Systems Vital Signs Vitals Vital Signs Date Time Temp Pulse Resp B/P Pulse Ox O2 Delivery O2 Flow Rate FiO2 12/11/16 08:19 98.4 99 19 179/89 98 12/11/16 08:11 21 12/11/16 05:00 Room Air 12/10/16 07:54 Intake and Output 12/10/16 12/10/16 12/11/16 15:00 23:00 07:00 Intake Total 850 ml Balance 850 ml Exam Constitutional: alert Neck: non-tender, supple Respiratory: clear to auscultation Cardiovascular: regular rate and rhythm Gastrointestinal: non-tender, soft Results Result Diagram: 12/10/16 0555 12/11/16 0927 Results 24 hrs Laboratory Tests Test 12/10/16 12:11 12/10/16 16:40 12/10/16 21:32 12/11/16 01:39 Bedside Glucose 144 129 121 108 Test 12/11/16 08:20 12/11/16 09:27 Bedside Glucose 109 Sodium Level 142 Potassium Level 3.7 Chloride Level 108 Carbon Dioxide Level 24 Anion Gap 14 Blood Urea Nitrogen 21 H Creatinine 1.47 H Glucose Level 141 Calcium Level 10.2 Magnesium Level 1.8 Total Bilirubin 0.4 Direct Bilirubin 0.00 Indirect Bilirubin 0.4 Aspartate Amino Transf (AST/SGOT) 28 Alanine Aminotransferase (ALT/SGPT) 55 Alkaline Phosphatase 107 Total Protein 7.4 Albumin 4.0 Globulin 3.40 H Albumin/Globulin Ratio 1.17 Medications Medications Current Medications Ticagrelor (Brilinta) 90 mg BID PO Last administered on 12/11/16 08:30; Admin Dose 90 MG; Start 11/19/16 at 21:00 Ondansetron HCl (Zofran Inj) 4 mg Q6H PRN IV NAUSEA AND/OR VOMITING; Start 04/27 at 17:00 Acetaminophen (Tylenol Liquid) 650 mg Q6H PRN PO PAIN LEVEL 1-3 OR FEVER Last administered on 12/10/16 03:59; Admin Dose 650 MG; Start 11/19/16 at 17:00 Acetaminophen (Tylenol Supp) 650 mg Q4H PRN [place] PAIN LEVEL 1-3 OR FEVER; Start 11/19/16 at 17:00 Docusate Sodium (Colace) 100 mg Q12H PRN PO CONSTIPATION; Start 11/19/16 at 17: 00 Magnesium Hydroxide (Milk Of Mag) 30 ml DAILY PRN PO CONSTIPATION Last administered on 11/29/16 09:23; Admin Dose 30 ML; Start 11/19/16 at 17:00 Bisacodyl (Dulcolax Supp) 10 mg DAILY PRN [place] CONSTIPATION Last administered on 11/29/16 09:23; Admin Dose 10 MG; Start 11/19/16 at 17:00 Famotidine (Pepcid Iv) 20 mg DAILY IV Last administered on 12/11/16 08:28; Admin Dose 20 MG; Start 11/19/16 at 17:00 Miscellaneous Information 1 ea NOTE XX ; Start 11/19/16 at 17:30 Glucose (Glutose) 15 gm Q15M PRN PO DECREASED GLUCOSE; Start 11/19/16 at 17:30 Glucose (Glutose) 22.5 gm Q15M PRN PO DECREASED GLUCOSE; Start 11/19/16 at 17: 30 Dextrose (D50w Syringe) 25 ml Q15M PRN IV DECREASED GLUCOSE Last administered on 12/03/16 20:15; Admin Dose 25 ML; Start 11/19/16 at 17:30 Dextrose (D50w Syringe) 50 ml Q15M PRN IV DECREASED GLUCOSE; Start 11/19/16 at 17:30 Glucagon (Glucagen) 1 mg Q15M PRN IM DECREASED GLUCOSE; Start 11/19/16 at 17:30 Glucose (Glutose) 15 gm Q15M PRN BUCCAL DECREASED GLUCOSE; Start 11/19/16 at 17 :30 Atorvastatin Calcium (Lipitor) 10 mg HS NGT Last administered on 12/10/16 21:35 ; Admin Dose 10 MG; Start 11/24/16 at 21:00 Mupirocin (Bactroban) 1 applic BID TOP Last administered on 12/11/16 08:33; Admin Dose 1 APPLIC; Start 11/27/16 at 09:30 Insulin Glargine (Lantus) 20 unit DAILY@20 SC Last administered on 12/10/16 21: 40; Admin Dose 20 UNIT; Start 11/27/16 at 20:00 Thiamine HCl (Vitamin B1) 100 mg DAILY IV Last administered on 12/11/16 08:28; Admin Dose 100 MG; Start 11/29/16 at 10:00 Folic Acid (Folic Acid) 1 mg DAILY NGT Last administered on 12/11/16 08:27; Admin Dose 1 MG; Start 11/29/16 at 10:00 Multivitamins (Multivitamin) 30 ml DAILY NGT Last administered on 12/11/16 08: 28; Admin Dose 30 ML; Start 11/29/16 at 10:30 Hydralazine HCl (Apresoline) 10 mg Q2 PRN IV For SBP >170 Last administered on 12/11/16 08:33; Admin Dose 10 MG; Start 12/04/16 at 00:00 IV Flush (NS 10 ml) 10 ml PRN PRN IV IV PROTOCOL Last administered on 12/09/16 20:42; Admin Dose 10 ML; Start 12/08/16 at 16:00 Amiodarone HCl (Cordarone) 200 mg DAILY GTB Last administered on 12/11/16 08:27 ; Admin Dose 200 MG; Start 12/10/16 at 09:00 Diagnostic Test (Pha) (Accu-Chek) 1 ea 02 XX Last administered on 12/11/16 01: 31; Admin Dose 1 EA; Start 12/09/16 at 13:30 Aspirin (Aspirin) 81 mg DAILY PO Last administered on 12/11/16 08:28; Admin Dose 81 MG; Start 12/10/16 at 09:00 Quetiapine Fumarate (Seroquel) 25 mg Q4H PRN PO agitation; Start 12/10/16 at 10: 30 Lisinopril (Zestril) 20 mg BID PO Last administered on 12/11/16 08:27; Admin Dose 20 MG; Start 12/10/16 at 21:00 Haloperidol (Haldol) 0.5 mg Q4 PRN IV agitation Last administered on 12/11/16 05:32; Admin Dose 0.5 MG; Start 12/10/16 at 21:00 Haloperidol (Haldol) 0.5 mg Q4 PRN IM agitation; Start 12/10/16 at 21:00 RODRIGO HENLEY MD Dec 11, 2016 10:28
--- NOTE | 2016-12-11 11:37 | CONS ---
Date/Time of Note Date/Time of Note DATE: 12/11/16 TIME: 11:36 Consult Date/Type/Reason Admit Date/Time Nov 19, 2016 at 16:09 Type of Consultation: Pulm Ordering Provider: PIO VEGA Subjective Patient comfortable at rest no acute distress Objective Vital Signs Date Time Temp Pulse Resp B/P Pulse Ox O2 Delivery O2 Flow Rate FiO2 12/11/16 11:01 98.1 79 19 135/79 96 12/11/16 08:11 21 12/11/16 05:00 Room Air 12/10/16 07:54 Intake and Output 12/10/16 12/10/16 12/11/16 15:00 23:00 07:00 Intake Total 850 ml Balance 850 ml Exam GENERAL: VITAL SIGNS: per chart NECK: Supple. No JVD or lymphadenopathy. CARDIAC EXAM: S1, S2. No added sounds or murmurs. CHEST: clear bilaterally, No added sounds, rales or wheezes ABDOMEN: Soft, nontender. No guarding or rebound. EXTREMITIES: No cyanosis, clubbing or edema. NEUROLOGIC: Generalized weakness. No focal deficits. Results/Medications Result Diagram: 12/11/1692612/11/16926 Results 24 hrs Laboratory Tests Test 12/10/16 12:11 12/10/16 16:40 12/10/16 21:32 12/11/16 01:39 Bedside Glucose 144 129 121 108 Test 12/11/16 08:20 12/11/16 09:27 Bedside Glucose 109 White Blood Count 13.0 H Red Blood Count 3.75 L Hemoglobin 11.6 L Hematocrit 34.9 L Mean Corpuscular Volume 93.1 Mean Corpuscular Hemoglobin 30.9 Mean Corpuscular Hemoglobin Concent 33.2 Red Cell Distribution Width 15.9 H Platelet Count 317 Mean Platelet Volume 10.5 H Neutrophils % 56.1 Lymphocytes % 28.1 Monocytes % 8.2 Eosinophils % 5.6 Basophils % 1.5 Nucleated Red Blood Cells % 0.0 Neutrophils # 7.3 Lymphocytes # 3.7 H Monocytes # 1.1 H Eosinophils # 0.7 H Basophils # 0.2 H Nucleated Red Blood Cells # 0.0 Sodium Level 142 Potassium Level 3.7 Chloride Level 108 Carbon Dioxide Level 24 Anion Gap 14 Blood Urea Nitrogen 21 H Creatinine 1.47 H Glucose Level 141 Calcium Level 10.2 Magnesium Level 1.8 Total Bilirubin 0.4 Direct Bilirubin 0.00 Indirect Bilirubin 0.4 Aspartate Amino Transf (AST/SGOT) 28 Alanine Aminotransferase (ALT/SGPT) 55 Alkaline Phosphatase 107 Total Protein 7.4 Albumin 4.0 Globulin 3.40 H Albumin/Globulin Ratio 1.17 Medications Current Medications Ticagrelor (Brilinta) 90 mg BID PO Last administered on 12/11/16 08:30; Admin Dose 90 MG; Start 11/19/16 at 21:00 Ondansetron HCl (Zofran Inj) 4 mg Q6H PRN IV NAUSEA AND/OR VOMITING; Start 04/27 at 17:00 Acetaminophen (Tylenol Liquid) 650 mg Q6H PRN PO PAIN LEVEL 1-3 OR FEVER Last administered on 12/10/16 03:59; Admin Dose 650 MG; Start 11/19/16 at 17:00 Acetaminophen (Tylenol Supp) 650 mg Q4H PRN [place] PAIN LEVEL 1-3 OR FEVER; Start 11/19/16 at 17:00 Docusate Sodium (Colace) 100 mg Q12H PRN PO CONSTIPATION; Start 11/19/16 at 17: 00 Magnesium Hydroxide (Milk Of Mag) 30 ml DAILY PRN PO CONSTIPATION Last administered on 11/29/16 09:23; Admin Dose 30 ML; Start 11/19/16 at 17:00 Bisacodyl (Dulcolax Supp) 10 mg DAILY PRN [place] CONSTIPATION Last administered on 11/29/16 09:23; Admin Dose 10 MG; Start 11/19/16 at 17:00 Famotidine (Pepcid Iv) 20 mg DAILY IV Last administered on 12/11/16 08:28; Admin Dose 20 MG; Start 11/19/16 at 17:00 Miscellaneous Information 1 ea NOTE XX ; Start 11/19/16 at 17:30 Glucose (Glutose) 15 gm Q15M PRN PO DECREASED GLUCOSE; Start 11/19/16 at 17:30 Glucose (Glutose) 22.5 gm Q15M PRN PO DECREASED GLUCOSE; Start 11/19/16 at 17: 30 Dextrose (D50w Syringe) 25 ml Q15M PRN IV DECREASED GLUCOSE Last administered on 12/03/16 20:15; Admin Dose 25 ML; Start 11/19/16 at 17:30 Dextrose (D50w Syringe) 50 ml Q15M PRN IV DECREASED GLUCOSE; Start 11/19/16 at 17:30 Glucagon (Glucagen) 1 mg Q15M PRN IM DECREASED GLUCOSE; Start 11/19/16 at 17:30 Glucose (Glutose) 15 gm Q15M PRN BUCCAL DECREASED GLUCOSE; Start 11/19/16 at 17 :30 Atorvastatin Calcium (Lipitor) 10 mg HS NGT Last administered on 12/10/16 21:35 ; Admin Dose 10 MG; Start 11/24/16 at 21:00 Mupirocin (Bactroban) 1 applic BID TOP Last administered on 12/11/16 08:33; Admin Dose 1 APPLIC; Start 11/27/16 at 09:30 Insulin Glargine (Lantus) 20 unit DAILY@20 SC Last administered on 12/10/16 21: 40; Admin Dose 20 UNIT; Start 11/27/16 at 20:00 Thiamine HCl (Vitamin B1) 100 mg DAILY IV Last administered on 12/11/16 08:28; Admin Dose 100 MG; Start 11/29/16 at 10:00 Folic Acid (Folic Acid) 1 mg DAILY NGT Last administered on 12/11/16 08:27; Admin Dose 1 MG; Start 11/29/16 at 10:00 Multivitamins (Multivitamin) 30 ml DAILY NGT Last administered on 12/11/16 08: 28; Admin Dose 30 ML; Start 11/29/16 at 10:30 Hydralazine HCl (Apresoline) 10 mg Q2 PRN IV For SBP >170 Last administered on 12/11/16 08:33; Admin Dose 10 MG; Start 12/04/16 at 00:00 IV Flush (NS 10 ml) 10 ml PRN PRN IV IV PROTOCOL Last administered on 12/09/16 20:42; Admin Dose 10 ML; Start 12/08/16 at 16:00 Amiodarone HCl (Cordarone) 200 mg DAILY GTB Last administered on 12/11/16 08:27 ; Admin Dose 200 MG; Start 12/10/16 at 09:00 Diagnostic Test (Pha) (Accu-Chek) 1 ea 02 XX Last administered on 12/11/16 01: 31; Admin Dose 1 EA; Start 12/09/16 at 13:30 Aspirin (Aspirin) 81 mg DAILY PO Last administered on 12/11/16 08:28; Admin Dose 81 MG; Start 12/10/16 at 09:00 Quetiapine Fumarate (Seroquel) 25 mg Q4H PRN PO agitation; Start 12/10/16 at 10: 30 Lisinopril (Zestril) 20 mg BID PO Last administered on 12/11/16 08:27; Admin Dose 20 MG; Start 12/10/16 at 21:00 Haloperidol (Haldol) 0.5 mg Q4 PRN IV agitation Last administered on 12/11/16 05:32; Admin Dose 0.5 MG; Start 12/10/16 at 21:00 Haloperidol (Haldol) 0.5 mg Q4 PRN IM agitation; Start 12/10/16 at 21:00 Quetiapine Fumarate (Seroquel) 25 mg DAILY PO ; Start 12/11/16 at 17:00 Assessment/Plan Chief Complaint/Hosp Course IMP: 1. Status post ST elevation myocardial infarction, status post cardiac arrest secondary to ventricular tachycardia secondary to above. 2. Status post percutaneous coronary intervention of left circumflex artery. 3. Renal failure. 4. Congestive heart failure. 5. Encephalopathy RECS: 1. PT/OT; mobilize OOB 2. BD's prn 3. Stable for SNF from a pulm perspective Problems: YOANDY RICHARD MD, [facility] Dec 11, 2016 11:37
--- NOTE | 2016-12-11 12:52 | CONS ---
Date/Time of Note Date/Time of Note DATE: 12/11/16 TIME: 12:49 Assessment/Plan Assessment/Plan Additional Assessment/Plan 1. Acute kidney injury on possible previous chronic kidney disease with last creatinine known about 1.48 secondary to acute tubular necrosis from ischemic acute tubular necrosis from cardiogenic shock.- Improving with good urine output 2. Acute respiratory failure from cardiogenic shock, currently intubated on ventilator-s/p extubation 12/06/16 3. Acute non-ST elevation myocardial infarction, s/p v tach arrest s/p pci of RCA, possible staged procedure to LCx required s/p IABP, now off 4. History of possible chronic kidney disease secondary to diabetic nephropathy , unknown stage. 5. History of type 2 diabetes mellitus. 6. History of hypertension. 7. paroxysmal atrial fibrillation 8. Ischemic Cardiomyopathy with EF 45% 9. Ischemic necrosis of toes Plan: Cr 1.47., other electrolytes stable DNR, CXR showed improving pulmonary congestion no indication for renal replacement therapy at this time plan is to d/c to SNF Consultation Date/Type/Reason Admit Date/Time Nov 19, 2016 at 16:09 Initial Consult Date Nov Type of Consultation: NEPHROLOGY Referring Provider: PIO VEGA 24 HR Interval Summary Free Text/Dictation no acute events, Cr 1.47, BP stable c/o hungry, wants to eat Exam/Review of Systems Vital Signs Vitals Vital Signs Date Time Temp Pulse Resp B/P Pulse Ox O2 Delivery O2 Flow Rate FiO2 12/11/16 12:43 51 12/11/16 11:01 98.1 19 135/79 96 12/11/16 08:11 21 12/11/16 05:00 Room Air 12/10/16 07:54 Intake and Output 12/10/16 12/10/16 12/11/16 15:00 23:00 07:00 Intake Total 850 ml Balance 850 ml Exam GENERAL:awake, feel hungry, wants to eat NECK: supple, no JVD LUNGS: Bilateral crackles +no wheezing HEART: S1, S2, tachycardia, no murmur. ABDOMEN: Soft, morbidly obese. EXTREMITIES: 1+ pitting edema. No clubbing, cyanosis Results Result Diagram: 12/11/1627 12/11/16926 Results 24 hrs Laboratory Tests Test 12/10/16 16:40 12/10/16 21:32 12/11/16 01:39 12/11/16 08:20 Bedside Glucose 129 121 108 109 Test 12/11/16 09:27 12/11/16 11:51 White Blood Count 13.0 H Red Blood Count 3.75 L Hemoglobin 11.6 L Hematocrit 34.9 L Mean Corpuscular Volume 93.1 Mean Corpuscular Hemoglobin 30.9 Mean Corpuscular Hemoglobin Concent 33.2 Red Cell Distribution Width 15.9 H Platelet Count 317 Mean Platelet Volume 10.5 H Neutrophils % 56.1 Lymphocytes % 28.1 Monocytes % 8.2 Eosinophils % 5.6 Basophils % 1.5 Nucleated Red Blood Cells % 0.0 Neutrophils # 7.3 Lymphocytes # 3.7 H Monocytes # 1.1 H Eosinophils # 0.7 H Basophils # 0.2 H Nucleated Red Blood Cells # 0.0 Sodium Level 142 Potassium Level 3.7 Chloride Level 108 Carbon Dioxide Level 24 Anion Gap 14 Blood Urea Nitrogen 21 H Creatinine 1.47 H Glucose Level 141 Calcium Level 10.2 Magnesium Level 1.8 Total Bilirubin 0.4 Direct Bilirubin 0.00 Indirect Bilirubin 0.4 Aspartate Amino Transf (AST/SGOT) 28 Alanine Aminotransferase (ALT/SGPT) 55 Alkaline Phosphatase 107 Total Protein 7.4 Albumin 4.0 Globulin 3.40 H Albumin/Globulin Ratio 1.17 Bedside Glucose 117 Medications Medications Current Medications Ticagrelor (Brilinta) 90 mg BID PO Last administered on 12/11/16 08:30; Admin Dose 90 MG; Start 11/19/16 at 21:00 Ondansetron HCl (Zofran Inj) 4 mg Q6H PRN IV NAUSEA AND/OR VOMITING; Start 04/27 at 17:00 Acetaminophen (Tylenol Liquid) 650 mg Q6H PRN PO PAIN LEVEL 1-3 OR FEVER Last administered on 12/10/16 03:59; Admin Dose 650 MG; Start 11/19/16 at 17:00 Acetaminophen (Tylenol Supp) 650 mg Q4H PRN [place] PAIN LEVEL 1-3 OR FEVER; Start 11/19/16 at 17:00 Docusate Sodium (Colace) 100 mg Q12H PRN PO CONSTIPATION; Start 11/19/16 at 17: 00 Magnesium Hydroxide (Milk Of Mag) 30 ml DAILY PRN PO CONSTIPATION Last administered on 11/29/16 09:23; Admin Dose 30 ML; Start 11/19/16 at 17:00 Bisacodyl (Dulcolax Supp) 10 mg DAILY PRN [place] CONSTIPATION Last administered on 11/29/16 09:23; Admin Dose 10 MG; Start 11/19/16 at 17:00 Famotidine (Pepcid Iv) 20 mg DAILY IV Last administered on 12/11/16 08:28; Admin Dose 20 MG; Start 11/19/16 at 17:00 Miscellaneous Information 1 ea NOTE XX ; Start 11/19/16 at 17:30 Glucose (Glutose) 15 gm Q15M PRN PO DECREASED GLUCOSE; Start 11/19/16 at 17:30 Glucose (Glutose) 22.5 gm Q15M PRN PO DECREASED GLUCOSE; Start 11/19/16 at 17: 30 Dextrose (D50w Syringe) 25 ml Q15M PRN IV DECREASED GLUCOSE Last administered on 12/03/16 20:15; Admin Dose 25 ML; Start 11/19/16 at 17:30 Dextrose (D50w Syringe) 50 ml Q15M PRN IV DECREASED GLUCOSE; Start 11/19/16 at 17:30 Glucagon (Glucagen) 1 mg Q15M PRN IM DECREASED GLUCOSE; Start 11/19/16 at 17:30 Glucose (Glutose) 15 gm Q15M PRN BUCCAL DECREASED GLUCOSE; Start 11/19/16 at 17 :30 Atorvastatin Calcium (Lipitor) 10 mg HS NGT Last administered on 12/10/16 21:35 ; Admin Dose 10 MG; Start 11/24/16 at 21:00 Mupirocin (Bactroban) 1 applic BID TOP Last administered on 12/11/16 08:33; Admin Dose 1 APPLIC; Start 11/27/16 at 09:30 Insulin Glargine (Lantus) 20 unit DAILY@20 SC Last administered on 12/10/16 21: 40; Admin Dose 20 UNIT; Start 11/27/16 at 20:00 Thiamine HCl (Vitamin B1) 100 mg DAILY IV Last administered on 12/11/16 08:28; Admin Dose 100 MG; Start 11/29/16 at 10:00 Folic Acid (Folic Acid) 1 mg DAILY NGT Last administered on 12/11/16 08:27; Admin Dose 1 MG; Start 11/29/16 at 10:00 Multivitamins (Multivitamin) 30 ml DAILY NGT Last administered on 12/11/16 08: 28; Admin Dose 30 ML; Start 11/29/16 at 10:30 Hydralazine HCl (Apresoline) 10 mg Q2 PRN IV For SBP >170 Last administered on 12/11/16 08:33; Admin Dose 10 MG; Start 12/04/16 at 00:00 IV Flush (NS 10 ml) 10 ml PRN PRN IV IV PROTOCOL Last administered on 12/09/16 20:42; Admin Dose 10 ML; Start 12/08/16 at 16:00 Amiodarone HCl (Cordarone) 200 mg DAILY GTB Last administered on 12/11/16 08:27 ; Admin Dose 200 MG; Start 12/10/16 at 09:00 Diagnostic Test (Pha) (Accu-Chek) 1 ea 02 XX Last administered on 12/11/16 01: 31; Admin Dose 1 EA; Start 12/09/16 at 13:30 Aspirin (Aspirin) 81 mg DAILY PO Last administered on 12/11/16 08:28; Admin Dose 81 MG; Start 12/10/16 at 09:00 Quetiapine Fumarate (Seroquel) 25 mg Q4H PRN PO agitation; Start 12/10/16 at 10: 30 Lisinopril (Zestril) 20 mg BID PO Last administered on 12/11/16 08:27; Admin Dose 20 MG; Start 12/10/16 at 21:00 Haloperidol (Haldol) 0.5 mg Q4 PRN IV agitation Last administered on 12/11/16 05:32; Admin Dose 0.5 MG; Start 12/10/16 at 21:00 Haloperidol (Haldol) 0.5 mg Q4 PRN IM agitation; Start 12/10/16 at 21:00 Quetiapine Fumarate (Seroquel) 25 mg DAILY PO ; Start 12/11/16 at 17:00 FÁTIMA PERES MD Dec 11, 2016 12:52
--- NOTE | 2016-12-11 17:00 | PN ---
Date/Time of Note Date/Time of Note DATE: 12/11/16 TIME: 16:59 Assessment/Plan VTE Prophylaxis VTE Prophylaxis Intervention: SCD's Lines/Catheters IV Catheter Type (from [facility]): PICC Line Central line still needed: Yes Urinary Cath still in place: No Assessment/Plan Chief Complaint/Hosp Course ASSESSMENT AND PLAN: 1. Status post ST elevation myocardial infarction, status post cardiac arrest secondary to ventricular tachycardia secondary to above. 2. Status post percutaneous coronary intervention of left circumflex artery. 3. Renal failure. Appears to be acute on chronic. Currently has improved significantly. 4. Congestive heart failure. 5. Recurrence of sustained ventricular tachycardia. 6. Paroxysmal atrial fibrillation. 7. Severe encephalopathy. 8. Dyslipidemia. 9. Hypertension, 10. resp failure: extubated on 12/06/16 11. episodes of marked sinus bradycardia at night: ? [place] RECOMMENDATIONS: We will continue with current cardiac care low dose amiodarone ASA brilinta statin lisinopril qd CONSIDER CPAP at night time if he agrees to it. Problems: Subjective 24 Hr Interval Summary Free Text/Dictation d/w staff and rhythm was reviewed. pt remains confused. he remains in NSR/ Sinus bradycardia. PT Denies any chest pain to me. Objective: NEURO: awake but lethargic. responds appropriately. able to tell me his name but not location. vascular: + necrosis of toes. Constitutional: awake no distress,, obese, Psych: agitated Head: atraumatic, normocephalic Eyes: EOMI, nl conjunctiva Neck: non-tender. no strider Respiratory: no wheezes. Cardiovascular: regular rate and rhythm Gastrointestinal: non-tender, soft Extremities: Trace LE edema Neurological: awake. alert, OX1 only. Exam/Review of Systems Vital Signs Vitals Vital Signs Date Time Temp Pulse Resp B/P Pulse Ox O2 Delivery O2 Flow Rate FiO2 12/11/16 16:19 37 12/11/16 15:19 98.3 19 126/79 97 12/11/16 14:30 21 12/11/16 05:00 Room Air 12/10/16 07:54 Intake and Output 12/10/16 12/10/16 12/11/16 14:59 22:59 06:59 Intake Total 850 ml Balance 850 ml Results Result Diagram: 12/11/16 0927 7/3/17 0927 Results 24 hrs Laboratory Tests Test 12/10/16 21:32 12/11/16 01:39 12/11/16 08:20 12/11/16 09:27 Bedside Glucose 121 108 109 White Blood Count 13.0 H Red Blood Count 3.75 L Hemoglobin 11.6 L Hematocrit 34.9 L Mean Corpuscular Volume 93.1 Mean Corpuscular Hemoglobin 30.9 Mean Corpuscular Hemoglobin Concent 33.2 Red Cell Distribution Width 15.9 H Platelet Count 317 Mean Platelet Volume 10.5 H Neutrophils % 56.1 Lymphocytes % 28.1 Monocytes % 8.2 Eosinophils % 5.6 Basophils % 1.5 Nucleated Red Blood Cells % 0.0 Neutrophils # 7.3 Lymphocytes # 3.7 H Monocytes # 1.1 H Eosinophils # 0.7 H Basophils # 0.2 H Nucleated Red Blood Cells # 0.0 Sodium Level 142 Potassium Level 3.7 Chloride Level 108 Carbon Dioxide Level 24 Anion Gap 14 Blood Urea Nitrogen 21 H Creatinine 1.47 H Glucose Level 141 Calcium Level 10.2 Magnesium Level 1.8 Total Bilirubin 0.4 Direct Bilirubin 0.00 Indirect Bilirubin 0.4 Aspartate Amino Transf (AST/SGOT) 28 Alanine Aminotransferase (ALT/SGPT) 55 Alkaline Phosphatase 107 Total Protein 7.4 Albumin 4.0 Globulin 3.40 H Albumin/Globulin Ratio 1.17 Test 12/11/16 11:51 Bedside Glucose 117 Medications Medications Current Medications Ticagrelor (Brilinta) 90 mg BID PO Last administered on 12/11/16 08:30; Admin Dose 90 MG; Start 11/19/16 at 21:00 Ondansetron HCl (Zofran Inj) 4 mg Q6H PRN IV NAUSEA AND/OR VOMITING; Start 04/27 at 17:00 Acetaminophen (Tylenol Liquid) 650 mg Q6H PRN PO PAIN LEVEL 1-3 OR FEVER Last administered on 12/10/16 03:59; Admin Dose 650 MG; Start 11/19/16 at 17:00 Acetaminophen (Tylenol Supp) 650 mg Q4H PRN [place] PAIN LEVEL 1-3 OR FEVER; Start 11/19/16 at 17:00 Docusate Sodium (Colace) 100 mg Q12H PRN PO CONSTIPATION; Start 11/19/16 at 17: 00 Magnesium Hydroxide (Milk Of Mag) 30 ml DAILY PRN PO CONSTIPATION Last administered on 11/29/16 09:23; Admin Dose 30 ML; Start 11/19/16 at 17:00 Bisacodyl (Dulcolax Supp) 10 mg DAILY PRN [place] CONSTIPATION Last administered on 11/29/16 09:23; Admin Dose 10 MG; Start 11/19/16 at 17:00 Miscellaneous Information 1 ea NOTE XX ; Start 11/19/16 at 17:30 Glucose (Glutose) 15 gm Q15M PRN PO DECREASED GLUCOSE; Start 11/19/16 at 17:30 Glucose (Glutose) 22.5 gm Q15M PRN PO DECREASED GLUCOSE; Start 11/19/16 at 17: 30 Dextrose (D50w Syringe) 25 ml Q15M PRN IV DECREASED GLUCOSE Last administered on 12/03/16 20:15; Admin Dose 25 ML; Start 11/19/16 at 17:30 Dextrose (D50w Syringe) 50 ml Q15M PRN IV DECREASED GLUCOSE; Start 11/19/16 at 17:30 Glucagon (Glucagen) 1 mg Q15M PRN IM DECREASED GLUCOSE; Start 11/19/16 at 17:30 Glucose (Glutose) 15 gm Q15M PRN BUCCAL DECREASED GLUCOSE; Start 11/19/16 at 17 :30 Atorvastatin Calcium (Lipitor) 10 mg HS NGT Last administered on 12/10/16 21:35 ; Admin Dose 10 MG; Start 11/24/16 at 21:00 Mupirocin (Bactroban) 1 applic BID TOP Last administered on 12/11/16 08:33; Admin Dose 1 APPLIC; Start 11/27/16 at 09:30 Insulin Glargine (Lantus) 20 unit DAILY@20 SC Last administered on 12/10/16 21: 40; Admin Dose 20 UNIT; Start 11/27/16 at 20:00 Thiamine HCl (Vitamin B1) 100 mg DAILY IV Last administered on 12/11/16 08:28; Admin Dose 100 MG; Start 11/29/16 at 10:00 Folic Acid (Folic Acid) 1 mg DAILY NGT Last administered on 12/11/16 08:27; Admin Dose 1 MG; Start 11/29/16 at 10:00 Multivitamins (Multivitamin) 30 ml DAILY NGT Last administered on 12/11/16 08: 28; Admin Dose 30 ML; Start 11/29/16 at 10:30 Hydralazine HCl (Apresoline) 10 mg Q2 PRN IV For SBP >170 Last administered on 12/11/16 08:33; Admin Dose 10 MG; Start 12/04/16 at 00:00 IV Flush (NS 10 ml) 10 ml PRN PRN IV IV PROTOCOL Last administered on 12/09/16 20:42; Admin Dose 10 ML; Start 12/08/16 at 16:00 Amiodarone HCl (Cordarone) 200 mg DAILY GTB Last administered on 12/11/16 08:27 ; Admin Dose 200 MG; Start 12/10/16 at 09:00 Diagnostic Test (Pha) (Accu-Chek) 1 ea 02 XX Last administered on 12/11/16 01: 31; Admin Dose 1 EA; Start 12/09/16 at 13:30 Aspirin (Aspirin) 81 mg DAILY PO Last administered on 12/11/16 08:28; Admin Dose 81 MG; Start 12/10/16 at 09:00 Quetiapine Fumarate (Seroquel) 25 mg Q4H PRN PO agitation; Start 12/10/16 at 10: 30 Lisinopril (Zestril) 20 mg BID PO Last administered on 12/11/16 08:27; Admin Dose 20 MG; Start 12/10/16 at 21:00 Haloperidol (Haldol) 0.5 mg Q4 PRN IV agitation Last administered on 12/11/16 05:32; Admin Dose 0.5 MG; Start 12/10/16 at 21:00 Haloperidol (Haldol) 0.5 mg Q4 PRN IM agitation; Start 12/10/16 at 21:00 Quetiapine Fumarate (Seroquel) 25 mg DAILY PO ; Start 12/11/16 at 17:00 Famotidine (Pepcid) 20 mg DAILY NGT ; Start 12/12/16 at 09:00 SERENA ALCARAZ MD Dec 11, 2016 17:00
[2016-12-11] MEDS: QUETIAPINE 25 MG TAB PO SCH (17:23)
[2016-12-11] MEDS: ATORVASTATIN 10 MG TAB NGT SCH (21:19)
[2016-12-11] MEDS: INSULIN GLARGINE [LANtus] 3 ML PEN SC SCH (21:22)
[2016-12-12] VITALS (16 sets, daily range): BP systolic 97–136; BP diastolic 66–84; PULSE 34–66; RESP 16–19
[2016-12-12] MEDS: ACCUCHECK 2 AM XX SCH (01:25)
[2016-12-12] MEDS: QUETIAPINE 25 MG TAB PO PRN ×2 (02:23→22:09)
[2016-12-12] MEDS: LEVALBUTEROL (NEB) 0.63 MG/3 ML AMP HHN SCH ×4 (02:42→20:00)
[2016-12-12] MEDS: IPRATROPIUM (NEB) 0.5 MG/2.5 ML AMP HHN SCH ×4 (02:42→20:00)
[2016-12-12 06:14] LABS: ADD SCAN DIFF NO
[2016-12-12 06:18] LABS: BASOPHIL # 0.2 10^3/ul (0.0-0.1); BASOPHILS % 1.6 % (0.0-2.0); EOSINOPHILS # 0.8 10^3/ul (0.0-0.5); EOSINOPHILS % 7.3 % (0.0-7.0); HEMATOCRIT 35.1 % (42.0-52.0); HEMOGLOBIN 11.1 g/dl (14.0-18.0); LYMPHOCYTES # 3.3 10^3/ul (0.8-2.9); LYMPHOCYTES % 28.8 % (15.0-51.0); MEAN CORPUSCULAR HEMOGLOBIN 29.6 pg (29.0-33.0); MEAN CORPUSCULAR HGB CONC 31.6 g/dl (32.0-37.0); MEAN CORPUSCULAR VOLUME 93.6 fl (82.0-101.0); MEAN PLATELET VOLUME 10.4 fl (7.4-10.4); MONOCYTE # 0.8 10^3/ul (0.3-0.9); MONOCYTES % 7.1 % (0.0-11.0); NEUTROPHIL # 6.2 10^3/ul (1.6-7.5); NEUTROPHILS % 54.8 % (39.0-77.0); PLATELET COUNT 277 10^3/UL (140-415); RED BLOOD COUNT 3.75 10^6/ul (4.70-6.10); RED CELL DISTRIBUTION WIDTH 16.4 % (11.5-14.5); WHITE BLOOD COUNT 11.4 10^3/ul (4.8-10.8)
[2016-12-12 07:00] LABS: CALCIUM 10.3 mg/dl (8.4-10.2); CREATININE 1.59 mg/dl (0.61-1.24); POTASSIUM 3.8 mmol/L (3.5-5.1)
[2016-12-12] MEDS: Insulin NOVOLOG SS MODERATE Algorithm (SS with meals and bedtime) SC SCH ×4 (07:55→21:00)
[2016-12-12] MEDS: MULTIVITAMINS 30 ML CUP NGT SCH (09:55)
[2016-12-12] MEDS: THIAMINE 200 MG INJ IV SCH (09:55)
[2016-12-12] MEDS: FAMOTIDINE 20 MG TAB NGT SCH (09:55)
[2016-12-12] MEDS: ASPIRIN 81 MG TAB PO SCH (09:55)
[2016-12-12] MEDS: AMIODARONE 200 MG TAB GTB SCH (09:56)
[2016-12-12] MEDS: QUETIAPINE 25 MG TAB PO SCH (09:56)
[2016-12-12] MEDS: MUPIROCIN 2% 22 GM OINT TOP SCH ×2 (09:56→22:09)
[2016-12-12] MEDS: FOLIC ACID 1 MG TAB NGT SCH (09:56)
[2016-12-12] MEDS: LISINOPRIL 20 MG TAB PO SCH ×2 (09:56→22:08)
[2016-12-12] MEDS: TICAGRELOR 90 MG TABLET PO SCH ×2 (10:15→22:13)
--- NOTE | 2016-12-12 12:51 | CONS ---
Date/Time of Note Date/Time of Note DATE: 12/12/16 TIME: 12:51 Consult Date/Type/Reason Admit Date/Time Nov 19, 2016 at 16:09 Type of Consultation: Pulmonary Ordering Provider: PIO VEGA Subjective Patient is comfortable this morning Objective Vital Signs Date Time Temp Pulse Resp B/P Pulse Ox O2 Delivery O2 Flow Rate FiO2 12/12/16 12:18 56 12/12/16 08:28 21 12/12/16 08:28 20 97 12/12/16 08:00 97.8 112/78 Room Air 12/10/16 07:54 Intake and Output 12/11/16 12/11/16 12/12/16 14:59 22:59 06:59 Intake Total 500 ml 720 ml Balance 500 ml 720 ml Exam GENERAL: VITAL SIGNS: per chart NECK: Supple. No JVD or lymphadenopathy. CARDIAC EXAM: S1, S2. No added sounds or murmurs. CHEST: clear bilaterally, No added sounds, rales or wheezes ABDOMEN: Soft, nontender. No guarding or rebound. EXTREMITIES: No cyanosis, clubbing or edema. NEUROLOGIC: Generalized weakness. No focal deficits. Results/Medications Result Diagram: 12/12/16 0600 12/12/16 0600 Results 24 hrs Laboratory Tests Test 12/11/16 17:21 12/11/16 21:08 12/12/16 06:00 12/12/16 08:02 Bedside Glucose 111 109 78 White Blood Count 11.4 H Red Blood Count 3.75 L Hemoglobin 11.1 L Hematocrit 35.1 L Mean Corpuscular Volume 93.6 Mean Corpuscular Hemoglobin 29.6 Mean Corpuscular Hemoglobin Concent 31.6 L Red Cell Distribution Width 16.4 H Platelet Count 277 Mean Platelet Volume 10.4 Neutrophils % 54.8 Lymphocytes % 28.8 Monocytes % 7.1 Eosinophils % 7.3 H Basophils % 1.6 Nucleated Red Blood Cells % 0.0 Neutrophils # 6.2 Lymphocytes # 3.3 H Monocytes # 0.8 Eosinophils # 0.8 H Basophils # 0.2 H Nucleated Red Blood Cells # 0.0 Sodium Level 144 Potassium Level 3.8 Chloride Level 106 Carbon Dioxide Level 23 Anion Gap 19 H Blood Urea Nitrogen 23 H Creatinine 1.59 H Glucose Level 76 # Calcium Level 10.3 H Test 12/12/16 11:41 Bedside Glucose 99 Medications Current Medications Ticagrelor (Brilinta) 90 mg BID PO Last administered on 12/12/16 10:15; Admin Dose 90 MG; Start 11/19/16 at 21:00 Ondansetron HCl (Zofran Inj) 4 mg Q6H PRN IV NAUSEA AND/OR VOMITING; Start 04/27 at 17:00 Acetaminophen (Tylenol Liquid) 650 mg Q6H PRN PO PAIN LEVEL 1-3 OR FEVER Last administered on 12/10/16 03:59; Admin Dose 650 MG; Start 11/19/16 at 17:00 Acetaminophen (Tylenol Supp) 650 mg Q4H PRN [place] PAIN LEVEL 1-3 OR FEVER; Start 11/19/16 at 17:00 Docusate Sodium (Colace) 100 mg Q12H PRN PO CONSTIPATION; Start 11/19/16 at 17: 00 Magnesium Hydroxide (Milk Of Mag) 30 ml DAILY PRN PO CONSTIPATION Last administered on 11/29/16 09:23; Admin Dose 30 ML; Start 11/19/16 at 17:00 Bisacodyl (Dulcolax Supp) 10 mg DAILY PRN [place] CONSTIPATION Last administered on 11/29/16 09:23; Admin Dose 10 MG; Start 11/19/16 at 17:00 Miscellaneous Information 1 ea NOTE XX ; Start 11/19/16 at 17:30 Glucose (Glutose) 15 gm Q15M PRN PO DECREASED GLUCOSE; Start 11/19/16 at 17:30 Glucose (Glutose) 22.5 gm Q15M PRN PO DECREASED GLUCOSE; Start 11/19/16 at 17: 30 Dextrose (D50w Syringe) 25 ml Q15M PRN IV DECREASED GLUCOSE Last administered on 12/03/16 20:15; Admin Dose 25 ML; Start 11/19/16 at 17:30 Dextrose (D50w Syringe) 50 ml Q15M PRN IV DECREASED GLUCOSE; Start 11/19/16 at 17:30 Glucagon (Glucagen) 1 mg Q15M PRN IM DECREASED GLUCOSE; Start 11/19/16 at 17:30 Glucose (Glutose) 15 gm Q15M PRN BUCCAL DECREASED GLUCOSE; Start 11/19/16 at 17 :30 Atorvastatin Calcium (Lipitor) 10 mg HS NGT Last administered on 12/11/16 21:19 ; Admin Dose 10 MG; Start 11/24/16 at 21:00 Mupirocin (Bactroban) 1 applic BID TOP Last administered on 12/12/16 09:56; Admin Dose 1 APPLIC; Start 11/27/16 at 09:30 Insulin Glargine (Lantus) 20 unit DAILY@20 SC Last administered on 12/11/16 21: 22; Admin Dose 20 UNIT; Start 11/27/16 at 20:00 Thiamine HCl (Vitamin B1) 100 mg DAILY IV Last administered on 12/12/16 09:55; Admin Dose 100 MG; Start 11/29/16 at 10:00 Folic Acid (Folic Acid) 1 mg DAILY NGT Last administered on 12/12/16 09:56; Admin Dose 1 MG; Start 11/29/16 at 10:00 Multivitamins (Multivitamin) 30 ml DAILY NGT Last administered on 12/12/16 09: 55; Admin Dose 30 ML; Start 11/29/16 at 10:30 Hydralazine HCl (Apresoline) 10 mg Q2 PRN IV For SBP >170 Last administered on 12/11/16 08:33; Admin Dose 10 MG; Start 12/04/16 at 00:00 IV Flush (NS 10 ml) 10 ml PRN PRN IV IV PROTOCOL Last administered on 12/09/16 20:42; Admin Dose 10 ML; Start 12/08/16 at 16:00 Amiodarone HCl (Cordarone) 200 mg DAILY GTB Last administered on 12/12/16 09:56 ; Admin Dose 200 MG; Start 12/10/16 at 09:00 Diagnostic Test (Pha) (Accu-Chek) 1 ea 02 XX Last administered on 12/11/16 01: 31; Admin Dose 1 EA; Start 12/09/16 at 13:30 Aspirin (Aspirin) 81 mg DAILY PO Last administered on 12/12/16 09:55; Admin Dose 81 MG; Start 12/10/16 at 09:00 Quetiapine Fumarate (Seroquel) 25 mg Q4H PRN PO agitation Last administered on 12/12/16 02:23; Admin Dose 25 MG; Start 12/10/16 at 10:30 Lisinopril (Zestril) 20 mg BID PO Last administered on 12/12/16 09:56; Admin Dose 20 MG; Start 12/10/16 at 21:00 Haloperidol (Haldol) 0.5 mg Q4 PRN IV agitation Last administered on 12/11/16 05:32; Admin Dose 0.5 MG; Start 12/10/16 at 21:00 Haloperidol (Haldol) 0.5 mg Q4 PRN IM agitation; Start 12/10/16 at 21:00 Quetiapine Fumarate (Seroquel) 25 mg DAILY PO Last administered on 12/12/16 09: 56; Admin Dose 25 MG; Start 12/11/16 at 17:00 Famotidine (Pepcid) 20 mg DAILY NGT Last administered on 12/12/16 09:55; Admin Dose 20 MG; Start 12/12/16 at 09:00 Assessment/Plan Chief Complaint/Hosp Course IMP: 1. Status post ST elevation myocardial infarction, status post cardiac arrest secondary to ventricular tachycardia secondary to above. 2. Status post percutaneous coronary intervention of left circumflex artery. 3. Renal failure. 4. Congestive heart failure. 5. Encephalopathy RECS: 1. PT/OT; mobilize OOB 2. BD's prn 3. Stable for SNF from a pulm perspective We will sign off. Problems: YOANDY RICHARD MD, [facility] Dec 12, 2016 12:51
--- NOTE | 2016-12-12 12:54 | PN ---
Date/Time of Note Date/Time of Note DATE: 12/12/16 TIME: 12:49 Assessment/Plan VTE Prophylaxis VTE Prophylaxis Intervention: SCD's Lines/Catheters IV Catheter Type (from Nrs): PICC Line Central line still needed: No Urinary Cath still in place: No Assessment/Plan Assessment/Plan 1. cards: s/p stemi and stent to Lcx (b) ischemic cardiomyopathy (c) paroxysmal a fib, (d) chf but appears euvolemic 2. toxic metabolic encephalopathy with behavior issues, cotn to manage with seroquel 3. ischemic necrosis of teos secodnasry to pressor, cont demarcation , no cellulitis Subjective 24 Hr Interval Summary Free Text/Dictation patient is agitated and inappropriate, demanding ot be relaesed and not to be "kept a prisoner" he has been reported to make inappropriate comments and actions Exam/Review of Systems Vital Signs Vitals Vital Signs Date Time Temp Pulse Resp B/P Pulse Ox O2 Delivery O2 Flow Rate FiO2 12/12/16 12:18 56 12/12/16 08:28 21 12/12/16 08:28 20 97 12/12/16 08:00 97.8 112/78 Room Air 12/10/16 07:54 Intake and Output 12/11/16 12/11/16 12/12/16 15:00 23:00 07:00 Intake Total 500 ml 720 ml Balance 500 ml 720 ml Exam Constitutional: alert Respiratory: clear to auscultation Cardiovascular: regular rate and rhythm Gastrointestinal: non-tender, soft Extremities: other (ischemic necrosis of toes related to pressor) Results Result Diagram: 12/12/16 0600 12/12/16 0600 Results 24 hrs Laboratory Tests Test 12/11/16 17:21 12/11/16 21:08 12/12/16 06:00 12/12/16 08:02 Bedside Glucose 111 109 78 White Blood Count 11.4 H Red Blood Count 3.75 L Hemoglobin 11.1 L Hematocrit 35.1 L Mean Corpuscular Volume 93.6 Mean Corpuscular Hemoglobin 29.6 Mean Corpuscular Hemoglobin Concent 31.6 L Red Cell Distribution Width 16.4 H Platelet Count 277 Mean Platelet Volume 10.4 Neutrophils % 54.8 Lymphocytes % 28.8 Monocytes % 7.1 Eosinophils % 7.3 H Basophils % 1.6 Nucleated Red Blood Cells % 0.0 Neutrophils # 6.2 Lymphocytes # 3.3 H Monocytes # 0.8 Eosinophils # 0.8 H Basophils # 0.2 H Nucleated Red Blood Cells # 0.0 Sodium Level 144 Potassium Level 3.8 Chloride Level 106 Carbon Dioxide Level 23 Anion Gap 19 H Blood Urea Nitrogen 23 H Creatinine 1.59 H Glucose Level 76 # Calcium Level 10.3 H Test 12/12/16 11:41 Bedside Glucose 99 Medications Medications Current Medications Ticagrelor (Brilinta) 90 mg BID PO Last administered on 12/12/16 10:15; Admin Dose 90 MG; Start 11/19/16 at 21:00 Ondansetron HCl (Zofran Inj) 4 mg Q6H PRN IV NAUSEA AND/OR VOMITING; Start 04/27 at 17:00 Acetaminophen (Tylenol Liquid) 650 mg Q6H PRN PO PAIN LEVEL 1-3 OR FEVER Last administered on 12/10/16 03:59; Admin Dose 650 MG; Start 11/19/16 at 17:00 Acetaminophen (Tylenol Supp) 650 mg Q4H PRN [place] PAIN LEVEL 1-3 OR FEVER; Start 11/19/16 at 17:00 Docusate Sodium (Colace) 100 mg Q12H PRN PO CONSTIPATION; Start 11/19/16 at 17: 00 Magnesium Hydroxide (Milk Of Mag) 30 ml DAILY PRN PO CONSTIPATION Last administered on 11/29/16 09:23; Admin Dose 30 ML; Start 11/19/16 at 17:00 Bisacodyl (Dulcolax Supp) 10 mg DAILY PRN [place] CONSTIPATION Last administered on 11/29/16 09:23; Admin Dose 10 MG; Start 11/19/16 at 17:00 Miscellaneous Information 1 ea NOTE XX ; Start 11/19/16 at 17:30 Glucose (Glutose) 15 gm Q15M PRN PO DECREASED GLUCOSE; Start 11/19/16 at 17:30 Glucose (Glutose) 22.5 gm Q15M PRN PO DECREASED GLUCOSE; Start 11/19/16 at 17: 30 Dextrose (D50w Syringe) 25 ml Q15M PRN IV DECREASED GLUCOSE Last administered on 12/03/16 20:15; Admin Dose 25 ML; Start 11/19/16 at 17:30 Dextrose (D50w Syringe) 50 ml Q15M PRN IV DECREASED GLUCOSE; Start 11/19/16 at 17:30 Glucagon (Glucagen) 1 mg Q15M PRN IM DECREASED GLUCOSE; Start 11/19/16 at 17:30 Glucose (Glutose) 15 gm Q15M PRN BUCCAL DECREASED GLUCOSE; Start 11/19/16 at 17 :30 Atorvastatin Calcium (Lipitor) 10 mg HS NGT Last administered on 12/11/16 21:19 ; Admin Dose 10 MG; Start 11/24/16 at 21:00 Mupirocin (Bactroban) 1 applic BID TOP Last administered on 12/12/16 09:56; Admin Dose 1 APPLIC; Start 11/27/16 at 09:30 Insulin Glargine (Lantus) 20 unit DAILY@20 SC Last administered on 12/11/16 21: 22; Admin Dose 20 UNIT; Start 11/27/16 at 20:00 Thiamine HCl (Vitamin B1) 100 mg DAILY IV Last administered on 12/12/16 09:55; Admin Dose 100 MG; Start 11/29/16 at 10:00 Folic Acid (Folic Acid) 1 mg DAILY NGT Last administered on 12/12/16 09:56; Admin Dose 1 MG; Start 11/29/16 at 10:00 Multivitamins (Multivitamin) 30 ml DAILY NGT Last administered on 12/12/16 09: 55; Admin Dose 30 ML; Start 11/29/16 at 10:30 Hydralazine HCl (Apresoline) 10 mg Q2 PRN IV For SBP >170 Last administered on 12/11/16 08:33; Admin Dose 10 MG; Start 12/04/16 at 00:00 IV Flush (NS 10 ml) 10 ml PRN PRN IV IV PROTOCOL Last administered on 12/09/16 20:42; Admin Dose 10 ML; Start 12/08/16 at 16:00 Amiodarone HCl (Cordarone) 200 mg DAILY GTB Last administered on 12/12/16 09:56 ; Admin Dose 200 MG; Start 12/10/16 at 09:00 Diagnostic Test (Pha) (Accu-Chek) 1 ea 02 XX Last administered on 12/11/16 01: 31; Admin Dose 1 EA; Start 12/09/16 at 13:30 Aspirin (Aspirin) 81 mg DAILY PO Last administered on 12/12/16 09:55; Admin Dose 81 MG; Start 12/10/16 at 09:00 Quetiapine Fumarate (Seroquel) 25 mg Q4H PRN PO agitation Last administered on 12/12/16 02:23; Admin Dose 25 MG; Start 12/10/16 at 10:30 Lisinopril (Zestril) 20 mg BID PO Last administered on 12/12/16 09:56; Admin Dose 20 MG; Start 12/10/16 at 21:00 Haloperidol (Haldol) 0.5 mg Q4 PRN IV agitation Last administered on 12/11/16 05:32; Admin Dose 0.5 MG; Start 12/10/16 at 21:00 Haloperidol (Haldol) 0.5 mg Q4 PRN IM agitation; Start 12/10/16 at 21:00 Quetiapine Fumarate (Seroquel) 25 mg DAILY PO Last administered on 12/12/16 09: 56; Admin Dose 25 MG; Start 12/11/16 at 17:00 Famotidine (Pepcid) 20 mg DAILY NGT Last administered on 12/12/16 09:55; Admin Dose 20 MG; Start 12/12/16 at 09:00 RODRIGO HENLEY MD Dec 12, 2016 12:53
--- NOTE | 2016-12-12 15:01 | PN ---
Date/Time of Note Date/Time of Note DATE: 12/12/16 TIME: 14:57 Assessment/Plan VTE Prophylaxis VTE Prophylaxis Intervention: heparin Lines/Catheters IV Catheter Type (from [facility]): PICC Line Central line still needed: Yes Urinary Cath still in place: No Assessment/Plan Chief Complaint/Hosp Course ASSESSMENT AND PLAN: 1. Status post ST elevation myocardial infarction, status post cardiac arrest secondary to ventricular tachycardia secondary to above. 2. Status post percutaneous coronary intervention of left circumflex artery. 3. Renal failure. Appears to be acute on chronic. Currently has improved significantly. 4. Congestive heart failure. 5. Recurrence of sustained ventricular tachycardia. 6. Paroxysmal atrial fibrillation. 7. Severe encephalopathy. 8. Dyslipidemia. 9. Hypertension, 10. resp failure: extubated on 12/06/16 11. episodes of marked sinus bradycardia : r/o [place] RECOMMENDATIONS: We will continue with current cardiac care except will stop amiodarone and monitor. ASA brilinta statin lisinopril qd CONSIDER CPAP at night time if he agrees to it. Problems: Subjective 24 Hr Interval Summary Free Text/Dictation d/w staff and rhythm was reviewed. he remains in NSR/ Sinus bradycardia. PT Denies any chest pain to me. but pt is still confused. pt with intermittent asymptomatic sinus bradycardia. Objective: vascular: + necrosis of toes. Constitutional: awake no distress,, obese, Psych: agitated Head: atraumatic, normocephalic Eyes: EOMI, nl conjunctiva Neck: non-tender. no strider Respiratory: no wheezes. Cardiovascular: regular rate and rhythm Gastrointestinal: non-tender, soft Extremities: Trace LE edema Neurological: awake. alert, OX1 only.. awake and alert. able to tell me his name but not location. psych: agitated. . Exam/Review of Systems Vital Signs Vitals Vital Signs Date Time Temp Pulse Resp B/P Pulse Ox O2 Delivery O2 Flow Rate FiO2 12/12/16 12:18 56 12/12/16 11:00 98.1 19 128/78 97 12/12/16 08:28 21 12/12/16 08:00 Room Air 12/10/16 07:54 Intake and Output 12/11/16 12/11/16 12/12/16 15:00 23:00 07:00 Intake Total 500 ml 720 ml Balance 500 ml 720 ml Results Result Diagram: 12/12/16 0600 12/12/16 0600 Results 24 hrs Laboratory Tests Test 12/11/16 17:21 12/11/16 21:08 12/12/16 06:00 12/12/16 08:02 Bedside Glucose 111 109 78 White Blood Count 11.4 H Red Blood Count 3.75 L Hemoglobin 11.1 L Hematocrit 35.1 L Mean Corpuscular Volume 93.6 Mean Corpuscular Hemoglobin 29.6 Mean Corpuscular Hemoglobin Concent 31.6 L Red Cell Distribution Width 16.4 H Platelet Count 277 Mean Platelet Volume 10.4 Neutrophils % 54.8 Lymphocytes % 28.8 Monocytes % 7.1 Eosinophils % 7.3 H Basophils % 1.6 Nucleated Red Blood Cells % 0.0 Neutrophils # 6.2 Lymphocytes # 3.3 H Monocytes # 0.8 Eosinophils # 0.8 H Basophils # 0.2 H Nucleated Red Blood Cells # 0.0 Sodium Level 144 Potassium Level 3.8 Chloride Level 106 Carbon Dioxide Level 23 Anion Gap 19 H Blood Urea Nitrogen 23 H Creatinine 1.59 H Glucose Level 76 # Calcium Level 10.3 H Test 12/12/16 11:41 Bedside Glucose 99 Medications Medications Current Medications Ticagrelor (Brilinta) 90 mg BID PO Last administered on 12/12/16 10:15; Admin Dose 90 MG; Start 11/19/16 at 21:00 Ondansetron HCl (Zofran Inj) 4 mg Q6H PRN IV NAUSEA AND/OR VOMITING; Start 04/27 at 17:00 Acetaminophen (Tylenol Liquid) 650 mg Q6H PRN PO PAIN LEVEL 1-3 OR FEVER Last administered on 12/10/16 03:59; Admin Dose 650 MG; Start 11/19/16 at 17:00 Acetaminophen (Tylenol Supp) 650 mg Q4H PRN [place] PAIN LEVEL 1-3 OR FEVER; Start 11/19/16 at 17:00 Docusate Sodium (Colace) 100 mg Q12H PRN PO CONSTIPATION; Start 11/19/16 at 17: 00 Magnesium Hydroxide (Milk Of Mag) 30 ml DAILY PRN PO CONSTIPATION Last administered on 11/29/16 09:23; Admin Dose 30 ML; Start 11/19/16 at 17:00 Bisacodyl (Dulcolax Supp) 10 mg DAILY PRN [place] CONSTIPATION Last administered on 11/29/16 09:23; Admin Dose 10 MG; Start 11/19/16 at 17:00 Miscellaneous Information 1 ea NOTE XX ; Start 11/19/16 at 17:30 Glucose (Glutose) 15 gm Q15M PRN PO DECREASED GLUCOSE; Start 11/19/16 at 17:30 Glucose (Glutose) 22.5 gm Q15M PRN PO DECREASED GLUCOSE; Start 11/19/16 at 17: 30 Dextrose (D50w Syringe) 25 ml Q15M PRN IV DECREASED GLUCOSE Last administered on 12/03/16 20:15; Admin Dose 25 ML; Start 11/19/16 at 17:30 Dextrose (D50w Syringe) 50 ml Q15M PRN IV DECREASED GLUCOSE; Start 11/19/16 at 17:30 Glucagon (Glucagen) 1 mg Q15M PRN IM DECREASED GLUCOSE; Start 11/19/16 at 17:30 Glucose (Glutose) 15 gm Q15M PRN BUCCAL DECREASED GLUCOSE; Start 11/19/16 at 17 :30 Atorvastatin Calcium (Lipitor) 10 mg HS NGT Last administered on 12/11/16 21:19 ; Admin Dose 10 MG; Start 11/24/16 at 21:00 Mupirocin (Bactroban) 1 applic BID TOP Last administered on 12/12/16 09:56; Admin Dose 1 APPLIC; Start 11/27/16 at 09:30 Insulin Glargine (Lantus) 20 unit DAILY@20 SC Last administered on 12/11/16 21: 22; Admin Dose 20 UNIT; Start 11/27/16 at 20:00 Thiamine HCl (Vitamin B1) 100 mg DAILY IV Last administered on 12/12/16 09:55; Admin Dose 100 MG; Start 11/29/16 at 10:00 Folic Acid (Folic Acid) 1 mg DAILY NGT Last administered on 12/12/16 09:56; Admin Dose 1 MG; Start 11/29/16 at 10:00 Multivitamins (Multivitamin) 30 ml DAILY NGT Last administered on 12/12/16 09: 55; Admin Dose 30 ML; Start 11/29/16 at 10:30 Hydralazine HCl (Apresoline) 10 mg Q2 PRN IV For SBP >170 Last administered on 12/11/16 08:33; Admin Dose 10 MG; Start 12/04/16 at 00:00 IV Flush (NS 10 ml) 10 ml PRN PRN IV IV PROTOCOL Last administered on 12/09/16 20:42; Admin Dose 10 ML; Start 12/08/16 at 16:00 Amiodarone HCl (Cordarone) 200 mg DAILY GTB Last administered on 12/12/16 09:56 ; Admin Dose 200 MG; Start 12/10/16 at 09:00 Diagnostic Test (Pha) (Accu-Chek) 1 ea 02 XX Last administered on 12/11/16 01: 31; Admin Dose 1 EA; Start 12/09/16 at 13:30 Aspirin (Aspirin) 81 mg DAILY PO Last administered on 12/12/16 09:55; Admin Dose 81 MG; Start 12/10/16 at 09:00 Quetiapine Fumarate (Seroquel) 25 mg Q4H PRN PO agitation Last administered on 12/12/16 02:23; Admin Dose 25 MG; Start 12/10/16 at 10:30 Lisinopril (Zestril) 20 mg BID PO Last administered on 12/12/16 09:56; Admin Dose 20 MG; Start 12/10/16 at 21:00 Haloperidol (Haldol) 0.5 mg Q4 PRN IV agitation Last administered on 12/11/16 05:32; Admin Dose 0.5 MG; Start 12/10/16 at 21:00 Haloperidol (Haldol) 0.5 mg Q4 PRN IM agitation; Start 12/10/16 at 21:00 Quetiapine Fumarate (Seroquel) 25 mg DAILY PO Last administered on 12/12/16 09: 56; Admin Dose 25 MG; Start 12/11/16 at 17:00 Famotidine (Pepcid) 20 mg DAILY NGT Last administered on 12/12/16 09:55; Admin Dose 20 MG; Start 12/12/16 at 09:00 SERENA ALCARAZ MD Dec 12, 2016 15:01
[2016-12-12 16:15] LABS: ADD UMIC YES; UR ASCORBIC ACID NEGATIVE (NEGATIVE); UR BILIRUBIN (Dip) NEGATIVE (NEGATIVE); UR BLOOD (Dip) 1+ mg/dL (NEGATIVE); UR CLARITY CLEAR (CLEAR); UR COLOR YELLOW (YELLOW); UR GLUCOSE (Dip) NEGATIVE (NEGATIVE); UR KETONES (Dip) NEGATIVE (NEGATIVE); UR LEUKOCYTE ESTERASE (Dip) NEGATIVE Leu/ul (NEGATIVE); UR NITRITE (Dip) NEGATIVE (NEGATIVE); UR RBC 46 /HPF (0-5); UR SPECIFIC GRAVITY (Dip) 1.016 (1.003-1.030); UR TOTAL PROTEIN (Dip) NEGATIVE (NEGATIVE); UR UROBILINOGEN (Dip) 1+ mg/dL (NEGATIVE)
--- NOTE | 2016-12-12 18:02 | CONS ---
Date/Time of Note Date/Time of Note DATE: 12/12/16 TIME: 18:01 Assessment/Plan Assessment/Plan Additional Assessment/Plan 1. Acute kidney injury on possible previous chronic kidney disease with last creatinine known about 1.48 secondary to acute tubular necrosis from ischemic acute tubular necrosis from cardiogenic shock.- Improving with good urine output 2. Acute respiratory failure from cardiogenic shock, currently intubated on ventilator-s/p extubation 12/06/16 3. Acute non-ST elevation myocardial infarction, s/p v tach arrest s/p pci of RCA, possible staged procedure to LCx required s/p IABP, now off 4. History of possible chronic kidney disease secondary to diabetic nephropathy , unknown stage. 5. History of type 2 diabetes mellitus. 6. History of hypertension. 7. paroxysmal atrial fibrillation 8. Ischemic Cardiomyopathy with EF 45% 9. Ischemic necrosis of toes Plan: Cr 1.59., other electrolytes stable DNR, CXR showed improving pulmonary congestion no indication for renal replacement therapy at this time plan is to d/c to SNF Consultation Date/Type/Reason Admit Date/Time Nov 19, 2016 at 16:09 Initial Consult Date Nov Type of Consultation: NEPHROLOGY Referring Provider: PIO VEGA 24 HR Interval Summary Free Text/Dictation Cr 1.59, BP stable, afebrile Exam/Review of Systems Vital Signs Vitals Vital Signs Date Time Temp Pulse Resp B/P Pulse Ox O2 Delivery O2 Flow Rate FiO2 12/12/16 16:14 59 12/12/16 15:54 18 128/78 100 Room Air 12/12/16 14:53 97.8 12/12/16 08:28 21 12/10/16 07:54 Intake and Output 12/11/16 12/11/16 12/12/16 15:00 23:00 07:00 Intake Total 500 ml 720 ml Balance 500 ml 720 ml Results Result Diagram: 12/12/16 0600 12/12/16 0600 Results 24 hrs Laboratory Tests Test 12/11/16 21:08 12/12/16 06:00 12/12/16 08:02 12/12/16 11:41 Bedside Glucose 109 78 99 White Blood Count 11.4 H Red Blood Count 3.75 L Hemoglobin 11.1 L Hematocrit 35.1 L Mean Corpuscular Volume 93.6 Mean Corpuscular Hemoglobin 29.6 Mean Corpuscular Hemoglobin Concent 31.6 L Red Cell Distribution Width 16.4 H Platelet Count 277 Mean Platelet Volume 10.4 Neutrophils % 54.8 Lymphocytes % 28.8 Monocytes % 7.1 Eosinophils % 7.3 H Basophils % 1.6 Nucleated Red Blood Cells % 0.0 Neutrophils # 6.2 Lymphocytes # 3.3 H Monocytes # 0.8 Eosinophils # 0.8 H Basophils # 0.2 H Nucleated Red Blood Cells # 0.0 Sodium Level 144 Potassium Level 3.8 Chloride Level 106 Carbon Dioxide Level 23 Anion Gap 19 H Blood Urea Nitrogen 23 H Creatinine 1.59 H Glucose Level 76 # Calcium Level 10.3 H Test 12/12/16 15:33 12/12/16 17:17 Urine Color YELLOW Urine Clarity CLEAR Urine pH 6.0 Urine Specific [place] 1.016 Urine Ketones NEGATIVE Urine Nitrite NEGATIVE Urine Bilirubin NEGATIVE Urine Urobilinogen 1+ H Urine Leukocyte Esterase NEGATIVE Urine Microscopic RBC 46 H Urine Microscopic WBC 2 Urine Hemoglobin 1+ H Urine Glucose NEGATIVE Urine Total Protein NEGATIVE Bedside Glucose 112 Medications Medications Current Medications Ticagrelor (Brilinta) 90 mg BID PO Last administered on 12/12/16 10:15; Admin Dose 90 MG; Start 11/19/16 at 21:00 Ondansetron HCl (Zofran Inj) 4 mg Q6H PRN IV NAUSEA AND/OR VOMITING; Start 04/27 at 17:00 Acetaminophen (Tylenol Liquid) 650 mg Q6H PRN PO PAIN LEVEL 1-3 OR FEVER Last administered on 12/10/16 03:59; Admin Dose 650 MG; Start 11/19/16 at 17:00 Acetaminophen (Tylenol Supp) 650 mg Q4H PRN [place] PAIN LEVEL 1-3 OR FEVER; Start 11/19/16 at 17:00 Docusate Sodium (Colace) 100 mg Q12H PRN PO CONSTIPATION; Start 11/19/16 at 17: 00 Magnesium Hydroxide (Milk Of Mag) 30 ml DAILY PRN PO CONSTIPATION Last administered on 11/29/16 09:23; Admin Dose 30 ML; Start 11/19/16 at 17:00 Bisacodyl (Dulcolax Supp) 10 mg DAILY PRN [place] CONSTIPATION Last administered on 11/29/16 09:23; Admin Dose 10 MG; Start 11/19/16 at 17:00 Miscellaneous Information 1 ea NOTE XX ; Start 11/19/16 at 17:30 Glucose (Glutose) 15 gm Q15M PRN PO DECREASED GLUCOSE; Start 11/19/16 at 17:30 Glucose (Glutose) 22.5 gm Q15M PRN PO DECREASED GLUCOSE; Start 11/19/16 at 17: 30 Dextrose (D50w Syringe) 25 ml Q15M PRN IV DECREASED GLUCOSE Last administered on 12/03/16 20:15; Admin Dose 25 ML; Start 11/19/16 at 17:30 Dextrose (D50w Syringe) 50 ml Q15M PRN IV DECREASED GLUCOSE; Start 11/19/16 at 17:30 Glucagon (Glucagen) 1 mg Q15M PRN IM DECREASED GLUCOSE; Start 11/19/16 at 17:30 Glucose (Glutose) 15 gm Q15M PRN BUCCAL DECREASED GLUCOSE; Start 11/19/16 at 17 :30 Atorvastatin Calcium (Lipitor) 10 mg HS NGT Last administered on 12/11/16 21:19 ; Admin Dose 10 MG; Start 11/24/16 at 21:00 Mupirocin (Bactroban) 1 applic BID TOP Last administered on 12/12/16 09:56; Admin Dose 1 APPLIC; Start 11/27/16 at 09:30 Insulin Glargine (Lantus) 20 unit DAILY@20 SC Last administered on 12/11/16 21: 22; Admin Dose 20 UNIT; Start 11/27/16 at 20:00 Thiamine HCl (Vitamin B1) 100 mg DAILY IV Last administered on 12/12/16 09:55; Admin Dose 100 MG; Start 11/29/16 at 10:00 Folic Acid (Folic Acid) 1 mg DAILY NGT Last administered on 12/12/16 09:56; Admin Dose 1 MG; Start 11/29/16 at 10:00 Multivitamins (Multivitamin) 30 ml DAILY NGT Last administered on 12/12/16 09: 55; Admin Dose 30 ML; Start 11/29/16 at 10:30 Hydralazine HCl (Apresoline) 10 mg Q2 PRN IV For SBP >170 Last administered on 12/11/16 08:33; Admin Dose 10 MG; Start 12/04/16 at 00:00 IV Flush (NS 10 ml) 10 ml PRN PRN IV IV PROTOCOL Last administered on 12/09/16 20:42; Admin Dose 10 ML; Start 12/08/16 at 16:00 Diagnostic Test (Pha) (Accu-Chek) 1 ea 02 XX Last administered on 12/11/16 01: 31; Admin Dose 1 EA; Start 12/09/16 at 13:30 Aspirin (Aspirin) 81 mg DAILY PO Last administered on 12/12/16 09:55; Admin Dose 81 MG; Start 12/10/16 at 09:00 Quetiapine Fumarate (Seroquel) 25 mg Q4H PRN PO agitation Last administered on 12/12/16 02:23; Admin Dose 25 MG; Start 12/10/16 at 10:30 Lisinopril (Zestril) 20 mg BID PO Last administered on 12/12/16 09:56; Admin Dose 20 MG; Start 12/10/16 at 21:00 Haloperidol (Haldol) 0.5 mg Q4 PRN IV agitation Last administered on 12/11/16 05:32; Admin Dose 0.5 MG; Start 12/10/16 at 21:00 Haloperidol (Haldol) 0.5 mg Q4 PRN IM agitation; Start 12/10/16 at 21:00 Quetiapine Fumarate (Seroquel) 25 mg DAILY PO Last administered on 12/12/16 09: 56; Admin Dose 25 MG; Start 12/11/16 at 17:00 Famotidine (Pepcid) 20 mg DAILY NGT Last administered on 12/12/16 09:55; Admin Dose 20 MG; Start 12/12/16 at 09:00 FÁTIMA PERES MD Dec 12, 2016 18:02
[2016-12-12] MEDS: INSULIN GLARGINE [LANtus] 3 ML PEN SC SCH (20:00)
[2016-12-12] MEDS: HALOPERIDOL 5 MG INJ IV PRN (20:33)
[2016-12-12] MEDS: ATORVASTATIN 10 MG TAB NGT SCH (22:08)
[2016-12-12] MEDS ORDERED: INSULIN GLARGINE [LANtus] 3 ML PEN SC ONE (23:30)
[2016-12-13] VITALS (13 sets, daily range): BP systolic 109–142; BP diastolic 68–83; PULSE 52–106; RESP 18–23
[2016-12-13] MEDS: HALOPERIDOL 5 MG INJ IV PRN ×2 (00:01→05:48)
[2016-12-13] MEDS: ACCUCHECK 2 AM XX SCH (02:00)
[2016-12-13] MEDS: Insulin NOVOLOG SS MODERATE Algorithm (SS with meals and bedtime) SC SCH ×4 (07:55→20:51)
--- NOTE | 2016-12-13 08:21 | PN ---
Date/Time of Note Date/Time of Note DATE: 12/13/16 TIME: 08:19 Assessment/Plan VTE Prophylaxis VTE Prophylaxis Intervention: heparin Lines/Catheters IV Catheter Type (from [facility]): PICC Line Central line still needed: Yes Urinary Cath still in place: No Assessment/Plan Chief Complaint/Hosp Course ASSESSMENT AND PLAN: 1. Status post ST elevation myocardial infarction, status post cardiac arrest secondary to ventricular tachycardia secondary to above. 2. Status post percutaneous coronary intervention of left circumflex artery. 3. Renal failure. Appears to be acute on chronic. Currently has improved significantly. 4. Congestive heart failure. 5. Recurrence of sustained ventricular tachycardia. 6. Paroxysmal atrial fibrillation. 7. Severe encephalopathy. 8. Dyslipidemia. 9. Hypertension, 10. resp failure: extubated on 12/06/16 11. episodes of marked sinus bradycardia : r/o TAHMINA RECOMMENDATIONS: We will continue with current cardiac care off of amiodarone due to bradycardia and monitor. ASA brilinta statin lisinopril qd CONSIDER CPAP at night time if he agrees to it. Problems: Subjective 24 Hr Interval Summary Free Text/Dictation d/w staff and rhythm was reviewed. he remains in NSR/ Sinus bradycardia. PT Denies any chest pain to me. but pt is still confused. pt with intermittent asymptomatic sinus bradycardia. Objective: vascular: + necrosis of toes. Constitutional: awake no distress,, obese, Psych: agitated, combative. Head: atraumatic, normocephalic Eyes: EOMI, nl conjunctiva Neck: non-tender. no strider Respiratory: no wheezes. Cardiovascular: regular rate and rhythm Gastrointestinal: non-tender, soft Extremities: Trace LE edema Neurological: awake. alert, OX2 only.. . Exam/Review of Systems Vital Signs Vitals Vital Signs Date Time Temp Pulse Resp B/P Pulse Ox O2 Delivery O2 Flow Rate FiO2 12/13/16 08:05 56 12/13/16 06:59 98.3 19 131/75 92 12/12/16 15:54 Room Air 12/12/16 08:28 21 12/10/16 07:54 Intake and Output 12/12/16 12/12/16 12/13/16 15:00 23:00 07:00 Intake Total 150 ml 500 ml 480 ml Balance 150 ml 500 ml 480 ml Results Result Diagram: 12/12/16 0600 12/12/16 0600 Results 24 hrs Laboratory Tests Test 12/12/16 11:41 12/12/16 15:33 12/12/16 17:17 12/12/16 20:40 Bedside Glucose 99 112 99 Urine Color YELLOW Urine Clarity CLEAR Urine pH 6.0 Urine Specific [place] 1.016 Urine Ketones NEGATIVE Urine Nitrite NEGATIVE Urine Bilirubin NEGATIVE Urine Urobilinogen 1+ H Urine Leukocyte Esterase NEGATIVE Urine Microscopic RBC 46 H Urine Microscopic WBC 2 Urine Hemoglobin 1+ H Urine Glucose NEGATIVE Urine Total Protein NEGATIVE Test 12/12/16 23:11 Bedside Glucose 112 Medications Medications Current Medications Ticagrelor (Brilinta) 90 mg BID PO Last administered on 12/12/16 22:13; Admin Dose 90 MG; Start 11/19/16 at 21:00 Ondansetron HCl (Zofran Inj) 4 mg Q6H PRN IV NAUSEA AND/OR VOMITING; Start 04/27 at 17:00 Acetaminophen (Tylenol Liquid) 650 mg Q6H PRN PO PAIN LEVEL 1-3 OR FEVER Last administered on 12/10/16 03:59; Admin Dose 650 MG; Start 11/19/16 at 17:00 Acetaminophen (Tylenol Supp) 650 mg Q4H PRN [place] PAIN LEVEL 1-3 OR FEVER; Start 11/19/16 at 17:00 Docusate Sodium (Colace) 100 mg Q12H PRN PO CONSTIPATION; Start 11/19/16 at 17: 00 Magnesium Hydroxide (Milk Of Mag) 30 ml DAILY PRN PO CONSTIPATION Last administered on 11/29/16 09:23; Admin Dose 30 ML; Start 11/19/16 at 17:00 Bisacodyl (Dulcolax Supp) 10 mg DAILY PRN [place] CONSTIPATION Last administered on 11/29/16 09:23; Admin Dose 10 MG; Start 11/19/16 at 17:00 Miscellaneous Information 1 ea NOTE XX ; Start 11/19/16 at 17:30 Glucose (Glutose) 15 gm Q15M PRN PO DECREASED GLUCOSE; Start 11/19/16 at 17:30 Glucose (Glutose) 22.5 gm Q15M PRN PO DECREASED GLUCOSE; Start 11/19/16 at 17: 30 Dextrose (D50w Syringe) 25 ml Q15M PRN IV DECREASED GLUCOSE Last administered on 12/03/16 20:15; Admin Dose 25 ML; Start 11/19/16 at 17:30 Dextrose (D50w Syringe) 50 ml Q15M PRN IV DECREASED GLUCOSE; Start 11/19/16 at 17:30 Glucagon (Glucagen) 1 mg Q15M PRN IM DECREASED GLUCOSE; Start 11/19/16 at 17:30 Glucose (Glutose) 15 gm Q15M PRN BUCCAL DECREASED GLUCOSE; Start 11/19/16 at 17 :30 Atorvastatin Calcium (Lipitor) 10 mg HS NGT Last administered on 12/12/16 22:08 ; Admin Dose 10 MG; Start 11/24/16 at 21:00 Mupirocin (Bactroban) 1 applic BID TOP Last administered on 12/12/16 22:09; Admin Dose 1 APPLIC; Start 11/27/16 at 09:30 Insulin Glargine (Lantus) 20 unit DAILY@20 SC Last administered on 12/11/16 21: 22; Admin Dose 20 UNIT; Start 11/27/16 at 20:00 Thiamine HCl (Vitamin B1) 100 mg DAILY IV Last administered on 12/12/16 09:55; Admin Dose 100 MG; Start 11/29/16 at 10:00 Folic Acid (Folic Acid) 1 mg DAILY NGT Last administered on 12/12/16 09:56; Admin Dose 1 MG; Start 11/29/16 at 10:00 Multivitamins (Multivitamin) 30 ml DAILY NGT Last administered on 12/12/16 09: 55; Admin Dose 30 ML; Start 11/29/16 at 10:30 Hydralazine HCl (Apresoline) 10 mg Q2 PRN IV For SBP >170 Last administered on 12/11/16 08:33; Admin Dose 10 MG; Start 12/04/16 at 00:00 IV Flush (NS 10 ml) 10 ml PRN PRN IV IV PROTOCOL Last administered on 12/09/16 20:42; Admin Dose 10 ML; Start 12/08/16 at 16:00 Diagnostic Test (Pha) (Accu-Chek) 1 ea 02 XX Last administered on 12/13/16 02: 00; Admin Dose 1 EA; Start 12/09/16 at 13:30 Aspirin (Aspirin) 81 mg DAILY PO Last administered on 12/12/16 09:55; Admin Dose 81 MG; Start 12/10/16 at 09:00 Quetiapine Fumarate (Seroquel) 25 mg Q4H PRN PO agitation Last administered on 12/12/16 22:09; Admin Dose 25 MG; Start 12/10/16 at 10:30 Lisinopril (Zestril) 20 mg BID PO Last administered on 12/12/16 22:08; Admin Dose 20 MG; Start 12/10/16 at 21:00 Haloperidol (Haldol) 0.5 mg Q4 PRN IV agitation Last administered on 12/13/16 05:48; Admin Dose 0.5 MG; Start 12/10/16 at 21:00 Haloperidol (Haldol) 0.5 mg Q4 PRN IM agitation; Start 12/10/16 at 21:00 Quetiapine Fumarate (Seroquel) 25 mg DAILY PO Last administered on 12/12/16 09: 56; Admin Dose 25 MG; Start 12/11/16 at 17:00 Famotidine (Pepcid) 20 mg DAILY NGT Last administered on 12/12/16 09:55; Admin Dose 20 MG; Start 12/12/16 at 09:00 SERENA ALCARAZ MD Dec 13, 2016 08:21
[2016-12-13] MEDS: FAMOTIDINE 20 MG TAB NGT SCH (08:31)
[2016-12-13] MEDS: QUETIAPINE 25 MG TAB PO SCH ×3 (08:31→21:01)
[2016-12-13] MEDS: FOLIC ACID 1 MG TAB NGT SCH (08:31)
[2016-12-13] MEDS: ASPIRIN 81 MG TAB PO SCH (08:31)
[2016-12-13] MEDS: LISINOPRIL 20 MG TAB PO SCH ×2 (08:31→20:52)
[2016-12-13] MEDS: MUPIROCIN 2% 22 GM OINT TOP SCH ×2 (08:32→20:54)
[2016-12-13] MEDS: MULTIVITAMINS 30 ML CUP NGT SCH (08:44)
[2016-12-13] MEDS: TICAGRELOR 90 MG TABLET PO SCH ×2 (08:44→21:00)
[2016-12-13] MEDS: LEVALBUTEROL (NEB) 0.63 MG/3 ML AMP HHN SCH ×3 (08:50→20:38)
[2016-12-13] MEDS: IPRATROPIUM (NEB) 0.5 MG/2.5 ML AMP HHN SCH ×3 (08:50→20:38)
[2016-12-13] MEDS: THIAMINE 200 MG INJ IV SCH (10:04)
--- NOTE | 2016-12-13 12:43 | PN ---
Date/Time of Note Date/Time of Note DATE: 12/13/16 TIME: 12:39 Assessment/Plan VTE Prophylaxis VTE Prophylaxis Intervention: other Lines/Catheters [facility] Type ([facility] PICC Line Central line still needed: No Urinary Cath still in place: No Assessment/Plan Assessment/Plan 1. cards: stemi, s/p LCX stent (b) v tach arrest x2 (c) paroxysmal afib (d) ischemic cardiomyopathy 2. behavioral distutbance related to toxic metabolic encephalopathy, attempt to manage with seroquel (b) discuss with nursing if sitter can be dc 3. 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 d/c picc line Subjective 24 Hr Interval Summary Free Text/Dictation very belligerentoday, threatening to sharon all people ion the vicky Exam/Review of Systems Vital Signs Vitals Vital Signs Date Time Temp Pulse Resp B/P Pulse Ox O2 Delivery O2 Flow Rate FiO2 12/13/16 12:11 56 12/13/16 11:42 98.3 23 123/77 99 12/13/16 08:52 21 12/13/16 08:10 Nasal Cannula 2.0 Intake and Output 12/12/16 12/12/16 12/13/16 15:00 23:00 07:00 Intake Total 150 ml 500 ml 480 ml Balance 150 ml 500 ml 480 ml Exam patient refuses exam Results Result Diagram: 12/12/16 0600 12/12/16 0600 Results 24 hrs Laboratory Tests Test 12/12/16 15:33 12/12/16 17:17 12/12/16 20:40 12/12/16 23:11 Urine Color YELLOW Urine Clarity CLEAR Urine pH 6.0 Urine Specific [place] 1.016 Urine Ketones NEGATIVE Urine Nitrite NEGATIVE Urine Bilirubin NEGATIVE Urine Urobilinogen 1+ H Urine Leukocyte Esterase NEGATIVE Urine Microscopic RBC 46 H Urine Microscopic WBC 2 Urine Hemoglobin 1+ H Urine Glucose NEGATIVE Urine Total Protein NEGATIVE Bedside Glucose 112 99 112 Test 12/13/16 08:29 12/13/16 12:33 Bedside Glucose 73 101 Medications Medications Current Medications Ticagrelor (Brilinta) 90 mg BID PO Last administered on 12/13/16t 08:44; Admin Dose 90 MG; Start 11/19/16 at 21:00 Ondansetron HCl (Zofran Inj) 4 mg Q6H PRN IV NAUSEA AND/OR VOMITING; Start 04/27 at 17:00 Acetaminophen (Tylenol Liquid) 650 mg Q6H PRN PO PAIN LEVEL 1-3 OR FEVER Last administered on 12/10/16 03:59; Admin Dose 650 MG; Start 11/19/16 at 17:00 Acetaminophen (Tylenol Supp) 650 mg Q4H PRN [place] PAIN LEVEL 1-3 OR FEVER; Start 11/19/16 at 17:00 Docusate Sodium (Colace) 100 mg Q12H PRN PO CONSTIPATION; Start 11/19/16 at 17: 00 Magnesium Hydroxide (Milk Of Mag) 30 ml DAILY PRN PO CONSTIPATION Last administered on 11/29/16 09:23; Admin Dose 30 ML; Start 11/19/16 at 17:00 Bisacodyl (Dulcolax Supp) 10 mg DAILY PRN [place] CONSTIPATION Last administered on 11/29/16 09:23; Admin Dose 10 MG; Start 11/19/16 at 17:00 Miscellaneous Information 1 ea NOTE XX ; Start 11/19/16 at 17:30 Glucose (Glutose) 15 gm Q15M PRN PO DECREASED GLUCOSE; Start 11/19/16 at 17:30 Glucose (Glutose) 22.5 gm Q15M PRN PO DECREASED GLUCOSE; Start 11/19/16 at 17: 30 Dextrose (D50w Syringe) 25 ml Q15M PRN IV DECREASED GLUCOSE Last administered on 12/03/16 20:15; Admin Dose 25 ML; Start 11/19/16 at 17:30 Dextrose (D50w Syringe) 50 ml Q15M PRN IV DECREASED GLUCOSE; Start 11/19/16 at 17:30 Glucagon (Glucagen) 1 mg Q15M PRN IM DECREASED GLUCOSE; Start 11/19/16 at 17:30 Glucose (Glutose) 15 gm Q15M PRN BUCCAL DECREASED GLUCOSE; Start 11/19/16 at 17 :30 Atorvastatin Calcium (Lipitor) 10 mg HS NGT Last administered on 12/12/16 22:08 ; Admin Dose 10 MG; Start 11/24/16 at 21:00 Mupirocin (Bactroban) 1 applic BID TOP Last administered on 12/13/16 08:32; Admin Dose 1 APPLIC; Start 11/27/16 at 09:30 Insulin Glargine (Lantus) 20 unit DAILY@20 SC Last administered on 12/11/16 21: 22; Admin Dose 20 UNIT; Start 11/27/16 at 20:00 Thiamine HCl (Vitamin B1) 100 mg DAILY IV Last administered on 12/13/16 10:04; Admin Dose 100 MG; Start 11/29/16 at 10:00 Folic Acid (Folic Acid) 1 mg DAILY NGT Last administered on 12/13/16 08:31; Admin Dose 1 MG; Start 11/29/16 at 10:00 Multivitamins (Multivitamin) 30 ml DAILY NGT Last administered on 12/12/16 09: 55; Admin Dose 30 ML; Start 11/29/16 at 10:30 Hydralazine HCl (Apresoline) 10 mg Q2 PRN IV For SBP >170 Last administered on 12/11/16 08:33; Admin Dose 10 MG; Start 12/04/16 at 00:00 IV Flush (NS 10 ml) 10 ml PRN PRN IV IV PROTOCOL Last administered on 12/09/16 20:42; Admin Dose 10 ML; Start 12/08/16 at 16:00 Diagnostic Test (Pha) (Accu-Chek) 1 ea 02 XX Last administered on 12/13/16 02: 00; Admin Dose 1 EA; Start 12/09/16 at 13:30 Aspirin (Aspirin) 81 mg DAILY PO Last administered on 12/13/16 08:31; Admin Dose 81 MG; Start 12/10/16 at 09:00 Quetiapine Fumarate (Seroquel) 25 mg Q4H PRN PO agitation Last administered on 12/12/16 22:09; Admin Dose 25 MG; Start 12/10/16 at 10:30 Lisinopril (Zestril) 20 mg BID PO Last administered on 12/13/16 08:31; Admin Dose 20 MG; Start 12/10/16 at 21:00 Haloperidol (Haldol) 0.5 mg Q4 PRN IV agitation Last administered on 12/13/16 05:48; Admin Dose 0.5 MG; Start 12/10/16 at 21:00 Haloperidol (Haldol) 0.5 mg Q4 PRN IM agitation; Start 12/10/16 at 21:00 Quetiapine Fumarate (Seroquel) 25 mg DAILY PO Last administered on 12/13/16 08: 31; Admin Dose 25 MG; Start 12/11/16 at 17:00 Famotidine (Pepcid) 20 mg DAILY NGT Last administered on 12/13/16 08:31; Admin Dose 20 MG; Start 12/12/16 at 09:00 RODRIGO HENLEY MD Dec 13, 2016 12:43
[2016-12-13] MEDS: HALOPERIDOL 5 MG INJ IM PRN (16:47)
--- NOTE | 2016-12-13 17:47 | CONS ---
Date/Time of Note Date/Time of Note DATE: 12/13/16 TIME: 17:46 Assessment/Plan Assessment/Plan Additional Assessment/Plan 1. Acute kidney injury on possible previous chronic kidney disease with last creatinine known about 1.48 secondary to acute tubular necrosis from ischemic acute tubular necrosis from cardiogenic shock.- Improving with good urine output 2. Acute respiratory failure from cardiogenic shock, currently intubated on ventilator-s/p extubation 12/06/16 3. Acute non-ST elevation myocardial infarction, s/p v tach arrest s/p pci of RCA, possible staged procedure to LCx required s/p IABP, now off 4. History of possible chronic kidney disease secondary to diabetic nephropathy , unknown stage. 5. History of type 2 diabetes mellitus. 6. History of hypertension. 7. paroxysmal atrial fibrillation 8. Ischemic Cardiomyopathy with EF 45% 9. Ischemic necrosis of toes Plan: Cr 1.59., other electrolytes stable DNR, CXR showed improving pulmonary congestion no indication for renal replacement therapy at this time Consultation Date/Type/Reason Admit Date/Time Nov 19, 2016 at 16:09 Initial Consult Date Nov Type of Consultation: NEPHROLOGY Referring Provider: PIO VEGA 24 HR Interval Summary Free Text/Dictation Bp stable, afebrile, no fever, no chills Exam/Review of Systems Vital Signs Vitals Vital Signs Date Time Temp Pulse Resp B/P Pulse Ox O2 Delivery O2 Flow Rate FiO2 12/13/16 16:04 59 12/13/16 15:32 98.2 20 142/83 90 12/13/16 15:25 21 12/13/16 08:10 Nasal Cannula 2.0 Intake and Output 12/12/16 12/12/16 12/13/16 15:00 23:00 07:00 Intake Total 150 ml 500 ml 480 ml Balance 150 ml 500 ml 480 ml Exam GENERAL:s/p extubation, awake, getting CXR now NECK: supple, no JVD LUNGS: Bilateral crackles +no wheezing HEART: S1, S2, tachycardia, no murmur. ABDOMEN: Soft, morbidly obese. EXTREMITIES: 1+ pitting edema. No clubbing, cyanosis Results Result Diagram: 12/12/16 0600 12/12/16 0600 Results 24 hrs Laboratory Tests Test 12/12/16 20:40 12/12/16 23:11 12/13/16 08:29 12/13/16 12:33 Bedside Glucose 99 112 73 101 Test 12/13/16 17:32 Bedside Glucose 96 Medications Medications Current Medications Ticagrelor (Brilinta) 90 mg BID PO Last administered on 12/13/16 08:44; Admin Dose 90 MG; Start 11/19/16 at 21:00 Ondansetron HCl (Zofran Inj) 4 mg Q6H PRN IV NAUSEA AND/OR VOMITING; Start 04/27 at 17:00 Acetaminophen (Tylenol Liquid) 650 mg Q6H PRN PO PAIN LEVEL 1-3 OR FEVER Last administered on 12/10/16 03:59; Admin Dose 650 MG; Start 11/19/16 at 17:00 Acetaminophen (Tylenol Supp) 650 mg Q4H PRN [place] PAIN LEVEL 1-3 OR FEVER; Start 11/19/16 at 17:00 Docusate Sodium (Colace) 100 mg Q12H PRN PO CONSTIPATION; Start 11/19/16 at 17: 00 Magnesium Hydroxide (Milk Of Mag) 30 ml DAILY PRN PO CONSTIPATION Last administered on 11/29/16 09:23; Admin Dose 30 ML; Start 11/19/16 at 17:00 Bisacodyl (Dulcolax Supp) 10 mg DAILY PRN [place] CONSTIPATION Last administered on 11/29/16 09:23; Admin Dose 10 MG; Start 11/19/16 at 17:00 Miscellaneous Information 1 ea NOTE XX ; Start 11/19/16 at 17:30 Glucose (Glutose) 15 gm Q15M PRN PO DECREASED GLUCOSE; Start 11/19/16 at 17:30 Glucose (Glutose) 22.5 gm Q15M PRN PO DECREASED GLUCOSE; Start 11/19/16 at 17: 30 Dextrose (D50w Syringe) 25 ml Q15M PRN IV DECREASED GLUCOSE Last administered on 12/03/16 20:15; Admin Dose 25 ML; Start 11/19/16 at 17:30 Dextrose (D50w Syringe) 50 ml Q15M PRN IV DECREASED GLUCOSE; Start 11/19/16 at 17:30 Glucagon (Glucagen) 1 mg Q15M PRN IM DECREASED GLUCOSE; Start 11/19/16 at 17:30 Glucose (Glutose) 15 gm Q15M PRN BUCCAL DECREASED GLUCOSE; Start 11/19/16 at 17 :30 Atorvastatin Calcium (Lipitor) 10 mg HS NGT Last administered on 12/12/16 22:08 ; Admin Dose 10 MG; Start 11/24/16 at 21:00 Mupirocin (Bactroban) 1 applic BID TOP Last administered on 12/13/16 08:32; Admin Dose 1 APPLIC; Start 11/27/16 at 09:30 Insulin Glargine (Lantus) 20 unit DAILY@20 SC Last administered on 12/11/16 21: 22; Admin Dose 20 UNIT; Start 11/27/16 at 20:00 Thiamine HCl (Vitamin B1) 100 mg DAILY IV Last administered on 12/13/16 10:04; Admin Dose 100 MG; Start 11/29/16 at 10:00 Folic Acid (Folic Acid) 1 mg DAILY NGT Last administered on 12/13/16 08:31; Admin Dose 1 MG; Start 11/29/16 at 10:00 Multivitamins (Multivitamin) 30 ml DAILY NGT Last administered on 12/12/16 09: 55; Admin Dose 30 ML; Start 11/29/16 at 10:30 Hydralazine HCl (Apresoline) 10 mg Q2 PRN IV For SBP >170 Last administered on 12/11/16 08:33; Admin Dose 10 MG; Start 12/04/16 at 00:00 IV Flush (NS 10 ml) 10 ml PRN PRN IV IV PROTOCOL Last administered on 12/09/16 20:42; Admin Dose 10 ML; Start 12/08/16 at 16:00 Diagnostic Test (Pha) (Accu-Chek) 1 ea 02 XX Last administered on 12/13/16 02: 00; Admin Dose 1 EA; Start 12/09/16 at 13:30 Aspirin (Aspirin) 81 mg DAILY PO Last administered on 12/13/16 08:31; Admin Dose 81 MG; Start 12/10/16 at 09:00 Quetiapine Fumarate (Seroquel) 25 mg Q4H PRN PO agitation Last administered on 12/12/16 22:09; Admin Dose 25 MG; Start 12/10/16 at 10:30 Lisinopril (Zestril) 20 mg BID PO Last administered on 12/13/16 08:31; Admin Dose 20 MG; Start 12/10/16 at 21:00 Haloperidol (Haldol) 0.5 mg Q4 PRN IV agitation Last administered on 12/13/16 05:48; Admin Dose 0.5 MG; Start 12/10/16 at 21:00 Haloperidol (Haldol) 0.5 mg Q4 PRN IM agitation Last administered on 12/13/16 16:47; Admin Dose 0.5 MG; Start 12/10/16 at 21:00 Famotidine (Pepcid) 20 mg DAILY NGT Last administered on 12/13/16 08:31; Admin Dose 20 MG; Start 12/12/16 at 09:00 Quetiapine Fumarate (Seroquel) 25 mg TID@09,16,22 PO Last administered on 17:34; Admin Dose 25 MG; Start 12/13/16 at 17:30 FÁTIMA PERES MD Dec 13, 2016 17:47
[2016-12-13] MEDS: ATORVASTATIN 10 MG TAB NGT SCH (20:50)
[2016-12-13] MEDS: INSULIN GLARGINE [LANtus] 3 ML PEN SC SCH (20:59)
[2016-12-13] MEDS ORDERED: QUETIAPINE 25 MG TAB PO SCH (21:00)
[2016-12-14] VITALS (12 sets, daily range): BP systolic 102–139; BP diastolic 69–88; PULSE 40–60; RESP 16–20
[2016-12-14] MEDS: HALOPERIDOL 5 MG INJ IV PRN (00:21)
[2016-12-14] MEDS: IPRATROPIUM (NEB) 0.5 MG/2.5 ML AMP HHN SCH ×4 (01:40→19:50)
[2016-12-14] MEDS: LEVALBUTEROL (NEB) 0.63 MG/3 ML AMP HHN SCH ×4 (01:40→19:50)
[2016-12-14] MEDS: ACCUCHECK 2 AM XX SCH (02:00)
[2016-12-14] MEDS: Insulin NOVOLOG SS MODERATE Algorithm (SS with meals and bedtime) SC SCH ×4 (07:40→21:00)
--- NOTE | 2016-12-14 08:49 | PN ---
Date/Time of Note Date/Time of Note DATE: 12/14/16 TIME: 08:47 Assessment/Plan VTE Prophylaxis VTE Prophylaxis Intervention: heparin Lines/Catheters IV Catheter Type (from [facility]): [place] Urinary Cath still in place: No Assessment/Plan Chief Complaint/Hosp Course ASSESSMENT AND PLAN: 1. Status post ST elevation myocardial infarction, status post cardiac arrest secondary to ventricular tachycardia secondary to above. 2. Status post percutaneous coronary intervention of left circumflex artery. 3. Renal failure. Appears to be acute on chronic. Currently has improved significantly. 4. Congestive heart failure. 5. Recurrence of sustained ventricular tachycardia. 6. Paroxysmal atrial fibrillation: currently remains in NSR. 7. Severe encephalopathy. 8. Dyslipidemia. 9. Hypertension, 10. resp failure: extubated on 12/06/16 11. episodes of marked sinus bradycardia : r/o TAHMINA RECOMMENDATIONS: We will continue with current cardiac care off of amiodarone due to bradycardia and monitor. ASA brilinta statin lisinopril qd . Problems: Subjective 24 Hr Interval Summary Free Text/Dictation d/w staff and rhythm was reviewed. he remains in NSR/ Sinus bradycardia. PT Denies any chest pain to me. but pt is still confused. He still has to have a sitter pt with intermittent asymptomatic sinus bradycardia. Objective: vascular: + necrosis of toes. Constitutional: awake no distress,, obese, Psych: agitated, combative. Head: atraumatic, normocephalic Eyes: EOMI, nl conjunctiva Neck: non-tender. no strider Respiratory: no wheezes. Cardiovascular: regular rate and rhythm. systolic murmur. Gastrointestinal: non-tender, soft Extremities: Trace LE edema Neurological: awake. alert, OX1 only. Exam/Review of Systems Vital Signs Vitals Vital Signs Date Time Temp Pulse Resp B/P Pulse Ox O2 Delivery O2 Flow Rate FiO2 12/14/16 08:01 60 12/14/16 07:50 20 99 21 12/14/16 07:09 98.0 139/88 12/13/16 19:00 Nasal Cannula 2.0 Intake and Output 12/13/16 12/13/16 12/14/16 15:00 23:00 07:00 Intake Total 350 ml 450 ml Output Total 700 ml Balance 350 ml -250 ml Results Result Diagram: 12/12/16 0600 12/12/16 0600 Results 24 hrs Laboratory Tests Test 12/13/16 12:33 12/13/16 17:32 12/13/16 20:42 12/14/16 07:27 Bedside Glucose 101 96 125 77 Medications Medications Current Medications Ticagrelor (Brilinta) 90 mg BID PO Last administered on 12/13/16 21:00; Admin Dose 90 MG; Start 11/19/16 at 21:00 Ondansetron HCl (Zofran Inj) 4 mg Q6H PRN IV NAUSEA AND/OR VOMITING; Start 04/27 at 17:00 Acetaminophen (Tylenol Liquid) 650 mg Q6H PRN PO PAIN LEVEL 1-3 OR FEVER Last administered on 12/10/16 03:59; Admin Dose 650 MG; Start 11/19/16 at 17:00 Acetaminophen (Tylenol Supp) 650 mg Q4H PRN [place] PAIN LEVEL 1-3 OR FEVER; Start 11/19/16 at 17:00 Docusate Sodium (Colace) 100 mg Q12H PRN PO CONSTIPATION; Start 11/19/16 at 17: 00 Magnesium Hydroxide (Milk Of Mag) 30 ml DAILY PRN PO CONSTIPATION Last administered on 11/29/16 09:23; Admin Dose 30 ML; Start 11/19/16 at 17:00 Bisacodyl (Dulcolax Supp) 10 mg DAILY PRN [place] CONSTIPATION Last administered on 11/29/16 09:23; Admin Dose 10 MG; Start 11/19/16 at 17:00 Miscellaneous Information 1 ea NOTE XX ; Start 11/19/16 at 17:30 Glucose (Glutose) 15 gm Q15M PRN PO DECREASED GLUCOSE; Start 11/19/16 at 17:30 Glucose (Glutose) 22.5 gm Q15M PRN PO DECREASED GLUCOSE; Start 11/19/16 at 17: 30 Dextrose (D50w Syringe) 25 ml Q15M PRN IV DECREASED GLUCOSE Last administered on 12/03/16 20:15; Admin Dose 25 ML; Start 11/19/16 at 17:30 Dextrose (D50w Syringe) 50 ml Q15M PRN IV DECREASED GLUCOSE; Start 11/19/16 at 17:30 Glucagon (Glucagen) 1 mg Q15M PRN IM DECREASED GLUCOSE; Start 11/19/16 at 17:30 Glucose (Glutose) 15 gm Q15M PRN BUCCAL DECREASED GLUCOSE; Start 11/19/16 at 17 :30 Atorvastatin Calcium (Lipitor) 10 mg HS NGT Last administered on 12/13/16 20:50 ; Admin Dose 10 MG; Start 11/24/16 at 21:00 Mupirocin (Bactroban) 1 applic BID TOP Last administered on 12/13/16 20:54; Admin Dose 1 APPLIC; Start 11/27/16 at 09:30 Insulin Glargine (Lantus) 20 unit DAILY@20 SC Last administered on 12/13/16 20: 59; Admin Dose 20 UNIT; Start 11/27/16 at 20:00 Thiamine HCl (Vitamin B1) 100 mg DAILY IV Last administered on 12/13/16 10:04; Admin Dose 100 MG; Start 11/29/16 at 10:00 Folic Acid (Folic Acid) 1 mg DAILY NGT Last administered on 12/13/16 08:31; Admin Dose 1 MG; Start 11/29/16 at 10:00 Multivitamins (Multivitamin) 30 ml DAILY NGT Last administered on 12/12/16 09: 55; Admin Dose 30 ML; Start 11/29/16 at 10:30 Hydralazine HCl (Apresoline) 10 mg Q2 PRN IV For SBP >170 Last administered on 12/11/16 08:33; Admin Dose 10 MG; Start 12/04/16 at 00:00 IV Flush (NS 10 ml) 10 ml PRN PRN IV IV PROTOCOL Last administered on 12/09/16 20:42; Admin Dose 10 ML; Start 12/08/16 at 16:00 Diagnostic Test (Pha) (Accu-Chek) 1 ea 02 XX Last administered on 12/13/16 02: 00; Admin Dose 1 EA; Start 12/09/16 at 13:30 Aspirin (Aspirin) 81 mg DAILY PO Last administered on 12/13/16 08:31; Admin Dose 81 MG; Start 12/10/16 at 09:00 Quetiapine Fumarate (Seroquel) 25 mg Q4H PRN PO agitation Last administered on 12/12/16 22:09; Admin Dose 25 MG; Start 12/10/16 at 10:30 Lisinopril (Zestril) 20 mg BID PO Last administered on 12/13/16 20:52; Admin Dose 20 MG; Start 12/10/16 at 21:00 Haloperidol (Haldol) 0.5 mg Q4 PRN IV agitation Last administered on 12/14/16 00:21; Admin Dose 0.5 MG; Start 12/10/16 at 21:00 Haloperidol (Haldol) 0.5 mg Q4 PRN IM agitation Last administered on 12/13/16 16:47; Admin Dose 0.5 MG; Start 12/10/16 at 21:00 Famotidine (Pepcid) 20 mg DAILY NGT Last administered on 12/13/16 08:31; Admin Dose 20 MG; Start 12/12/16 at 09:00 Quetiapine Fumarate (Seroquel) 25 mg TID@,16,22 PO Last administered on 21:01; Admin Dose 25 MG; Start 12/13/16 at 17:30 SERENA ALCARAZ MD Dec 14, 2016 08:49
[2016-12-14] MEDS: LISINOPRIL 20 MG TAB PO SCH ×2 (09:32→20:35)
[2016-12-14] MEDS: FAMOTIDINE 20 MG TAB NGT SCH (09:33)
[2016-12-14] MEDS: FOLIC ACID 1 MG TAB NGT SCH (09:33)
[2016-12-14] MEDS: MULTIVITAMINS 30 ML CUP NGT SCH (09:33)
[2016-12-14] MEDS: MUPIROCIN 2% 22 GM OINT TOP SCH ×2 (09:34→20:39)
[2016-12-14] MEDS: ASPIRIN 81 MG TAB PO SCH (09:39)
[2016-12-14] MEDS: QUETIAPINE 25 MG TAB PO SCH ×3 (09:39→23:13)
[2016-12-14] MEDS: TICAGRELOR 90 MG TABLET PO SCH ×2 (10:06→20:47)
[2016-12-14] MEDS: HALOPERIDOL 5 MG INJ IM PRN (12:08)
[2016-12-14] MEDS: THIAMINE 200 MG INJ IV SCH (12:09)
--- NOTE | 2016-12-14 12:56 | PN ---
Date/Time of Note Date/Time of Note DATE: 12/14/16 TIME: 12:53 Assessment/Plan VTE Prophylaxis VTE Prophylaxis Intervention: SCD's Lines/Catheters IV Catheter Type (from Nrsg): Saline Lock Central line still needed: No Urinary Cath still in place: No Assessment/Plan Assessment/Plan 1. cards: s/p stemi and stent to LCx (b0 isc hemic cardiomyopathy (c) paroxysmal a fib (d) chf but now euvolemic 2. necrosis of toes secondary to pressor- podiatry eval 3. behavior remains at issue, nursing continues to insist that sitter is necessary Subjective 24 Hr Interval Summary Free Text/Dictation no complaints, not familiar with me threatening to sharon me Exam/Review of Systems Vital Signs Vitals Vital Signs Date Time Temp Pulse Resp B/P Pulse Ox O2 Delivery O2 Flow Rate FiO2 12/14/16 12:00 52 12/14/16 11:22 98.1 19 109/76 98 12/14/16 07:50 21 12/13/16 19:00 Nasal Cannula 2.0 Intake and Output 12/13/16 12/13/16 12/14/16 15:00 23:00 07:00 Intake Total 350 ml 450 ml Output Total 700 ml Balance 350 ml -250 ml Exam refuses exam Constitutional: alert Results Result Diagram: 12/12/16 0600 12/12/16 0600 Results 24 hrs Laboratory Tests Test 12/13/16 17:32 12/13/16 20:42 12/14/16 07:27 12/14/16 12:21 Bedside Glucose 96 125 77 113 Medications Medications Current Medications Ticagrelor (Brilinta) 90 mg BID PO Last administered on 12/14/16 10:06; Admin Dose 90 MG; Start 11/19/16 at 21:00 Ondansetron HCl (Zofran Inj) 4 mg Q6H PRN IV NAUSEA AND/OR VOMITING; Start 04/27 at 17:00 Acetaminophen (Tylenol Liquid) 650 mg Q6H PRN PO PAIN LEVEL 1-3 OR FEVER Last administered on 12/10/16 03:59; Admin Dose 650 MG; Start 11/19/16 at 17:00 Acetaminophen (Tylenol Supp) 650 mg Q4H PRN [place] PAIN LEVEL 1-3 OR FEVER; Start 11/19/16 at 17:00 Docusate Sodium (Colace) 100 mg Q12H PRN PO CONSTIPATION; Start 11/19/16 at 17: 00 Magnesium Hydroxide (Milk Of Mag) 30 ml DAILY PRN PO CONSTIPATION Last administered on 11/29/16 09:23; Admin Dose 30 ML; Start 11/19/16 at 17:00 Bisacodyl (Dulcolax Supp) 10 mg DAILY PRN [place] CONSTIPATION Last administered on 11/29/16 09:23; Admin Dose 10 MG; Start 11/19/16 at 17:00 Miscellaneous Information 1 ea NOTE XX ; Start 11/19/16 at 17:30 Glucose (Glutose) 15 gm Q15M PRN PO DECREASED GLUCOSE; Start 11/19/16 at 17:30 Glucose (Glutose) 22.5 gm Q15M PRN PO DECREASED GLUCOSE; Start 11/19/16 at 17: 30 Dextrose (D50w Syringe) 25 ml Q15M PRN IV DECREASED GLUCOSE Last administered on 12/03/16 20:15; Admin Dose 25 ML; Start 11/19/16 at 17:30 Dextrose (D50w Syringe) 50 ml Q15M PRN IV DECREASED GLUCOSE; Start 11/19/16 at 17:30 Glucagon (Glucagen) 1 mg Q15M PRN IM DECREASED GLUCOSE; Start 11/19/16 at 17:30 Glucose (Glutose) 15 gm Q15M PRN BUCCAL DECREASED GLUCOSE; Start 11/19/16 at 17 :30 Atorvastatin Calcium (Lipitor) 10 mg HS NGT Last administered on 12/13/16 20:50 ; Admin Dose 10 MG; Start 11/24/16 at 21:00 Mupirocin (Bactroban) 1 applic BID TOP Last administered on 12/14/16 09:34; Admin Dose 1 APPLIC; Start 11/27/16 at 09:30 Insulin Glargine (Lantus) 20 unit DAILY@20 SC Last administered on 12/13/16 20: 59; Admin Dose 20 UNIT; Start 11/27/16 at 20:00 Thiamine HCl (Vitamin B1) 100 mg DAILY IV Last administered on 12/14/16 12:09; Admin Dose 100 MG; Start 11/29/16 at 10:00 Folic Acid (Folic Acid) 1 mg DAILY NGT Last administered on 12/14/16 09:33; Admin Dose 1 MG; Start 11/29/16 at 10:00 Multivitamins (Multivitamin) 30 ml DAILY NGT Last administered on 12/14/16 09: 33; Admin Dose 30 ML; Start 11/29/16 at 10:30 Hydralazine HCl (Apresoline) 10 mg Q2 PRN IV For SBP >170 Last administered on 12/11/16 08:33; Admin Dose 10 MG; Start 12/04/16 at 00:00 IV Flush (NS 10 ml) 10 ml PRN PRN IV IV PROTOCOL Last administered on 12/09/16 20:42; Admin Dose 10 ML; Start 12/08/16 at 16:00 Diagnostic Test (Pha) (Accu-Chek) 1 ea 02 XX Last administered on 12/13/16 02: 00; Admin Dose 1 EA; Start 12/09/16 at 13:30 Aspirin (Aspirin) 81 mg DAILY PO Last administered on 12/14/16 09:39; Admin Dose 81 MG; Start 12/10/16 at 09:00 Quetiapine Fumarate (Seroquel) 25 mg Q4H PRN PO agitation Last administered on 12/12/16 22:09; Admin Dose 25 MG; Start 12/10/16 at 10:30 Lisinopril (Zestril) 20 mg BID PO Last administered on 12/14/16 09:32; Admin Dose 20 MG; Start 12/10/16 at 21:00 Haloperidol (Haldol) 0.5 mg Q4 PRN IV agitation Last administered on 12/14/16 00:21; Admin Dose 0.5 MG; Start 12/10/16 at 21:00 Haloperidol (Haldol) 0.5 mg Q4 PRN IM agitation Last administered on 12/14/16 12:08; Admin Dose 0.5 MG; Start 12/10/16 at 21:00 Famotidine (Pepcid) 20 mg DAILY NGT Last administered on 12/14/16 09:33; Admin Dose 20 MG; Start 12/12/16 at 09:00 Quetiapine Fumarate (Seroquel) 25 mg TID@09,16,22 PO Last administered on 09:39; Admin Dose 25 MG; Start 12/13/16 at 17:30 RODRIGO HENLEY MD Dec 14, 2016 12:55
--- NOTE | 2016-12-14 17:07 | CONS ---
Date/Time of Note Date/Time of Note DATE: 12/14/16 TIME: 17:06 Assessment/Plan Assessment/Plan Additional Assessment/Plan 1. Acute kidney injury on possible previous chronic kidney disease with last creatinine known about 1.48 secondary to acute tubular necrosis from ischemic acute tubular necrosis from cardiogenic shock.- Improving with good urine output 2. Acute respiratory failure from cardiogenic shock, currently intubated on ventilator-s/p extubation 12/06/16 3. Acute non-ST elevation myocardial infarction, s/p v tach arrest s/p pci of RCA, possible staged procedure to LCx required s/p IABP, now off 4. History of possible chronic kidney disease secondary to diabetic nephropathy , unknown stage. 5. History of type 2 diabetes mellitus. 6. History of hypertension. 7. paroxysmal atrial fibrillation 8. Ischemic Cardiomyopathy with EF 45% 9. Ischemic necrosis of toes Plan: Cr 1.59., other electrolytes stable - no labs today to review Requiring sitter for agitation DNR, CXR showed improving pulmonary congestion no indication for renal replacement therapy at this time Consultation Date/Type/Reason Admit Date/Time Nov 19, 2016 at 16:09 Initial Consult Date Nov Type of Consultation: NEPHROLOGY Referring Provider: PIO VEGA 24 HR Interval Summary Free Text/Dictation no events Exam/Review of Systems Vital Signs Vitals Vital Signs Date Time Temp Pulse Resp B/P Pulse Ox O2 Delivery O2 Flow Rate FiO2 12/14/16 16:00 52 12/14/16 15:22 97.3 20 139/80 96 12/14/16 14:44 21 12/14/16 07:30 Nasal Cannula 2.0 Intake and Output 12/13/16 12/13/16 12/14/16 15:00 23:00 07:00 Intake Total 350 ml 450 ml Output Total 700 ml Balance 350 ml -250 ml Results Result Diagram: 12/12/16 0600 12/12/16 0600 Results 24 hrs Laboratory Tests Test 12/13/16 17:32 12/13/16 20:42 12/14/16 07:27 12/14/16 12:21 Bedside Glucose 96 125 77 113 Medications Medications Current Medications Ticagrelor (Brilinta) 90 mg BID PO Last administered on 12/14/16t 10:06; Admin Dose 90 MG; Start 11/19/16 at 21:00 Ondansetron HCl (Zofran Inj) 4 mg Q6H PRN IV NAUSEA AND/OR VOMITING; Start 04/27 at 17:00 Acetaminophen (Tylenol Liquid) 650 mg Q6H PRN PO PAIN LEVEL 1-3 OR FEVER Last administered on 12/10/16 03:59; Admin Dose 650 MG; Start 11/19/16 at 17:00 Acetaminophen (Tylenol Supp) 650 mg Q4H PRN [place] PAIN LEVEL 1-3 OR FEVER; Start 11/19/16 at 17:00 Docusate Sodium (Colace) 100 mg Q12H PRN PO CONSTIPATION; Start 11/19/16 at 17: 00 Magnesium Hydroxide (Milk Of Mag) 30 ml DAILY PRN PO CONSTIPATION Last administered on 11/29/16 09:23; Admin Dose 30 ML; Start 11/19/16 at 17:00 Bisacodyl (Dulcolax Supp) 10 mg DAILY PRN [place] CONSTIPATION Last administered on 11/29/16 09:23; Admin Dose 10 MG; Start 11/19/16 at 17:00 Miscellaneous Information 1 ea NOTE XX ; Start 11/19/16 at 17:30 Glucose (Glutose) 15 gm Q15M PRN PO DECREASED GLUCOSE; Start 11/19/16 at 17:30 Glucose (Glutose) 22.5 gm Q15M PRN PO DECREASED GLUCOSE; Start 11/19/16 at 17: 30 Dextrose (D50w Syringe) 25 ml Q15M PRN IV DECREASED GLUCOSE Last administered on 12/03/16 20:15; Admin Dose 25 ML; Start 11/19/16 at 17:30 Dextrose (D50w Syringe) 50 ml Q15M PRN IV DECREASED GLUCOSE; Start 11/19/16 at 17:30 Glucagon (Glucagen) 1 mg Q15M PRN IM DECREASED GLUCOSE; Start 11/19/16 at 17:30 Glucose (Glutose) 15 gm Q15M PRN BUCCAL DECREASED GLUCOSE; Start 11/19/16 at 17 :30 Atorvastatin Calcium (Lipitor) 10 mg HS NGT Last administered on 12/13/16 20:50 ; Admin Dose 10 MG; Start 11/24/16 at 21:00 Mupirocin (Bactroban) 1 applic BID TOP Last administered on 12/14/16 09:34; Admin Dose 1 APPLIC; Start 11/27/16 at 09:30 Insulin Glargine (Lantus) 20 unit DAILY@20 SC Last administered on 12/13/16 20: 59; Admin Dose 20 UNIT; Start 11/27/16 at 20:00 Thiamine HCl (Vitamin B1) 100 mg DAILY IV Last administered on 12/14/16 12:09; Admin Dose 100 MG; Start 11/29/16 at 10:00 Folic Acid (Folic Acid) 1 mg DAILY NGT Last administered on 12/14/16 09:33; Admin Dose 1 MG; Start 11/29/16 at 10:00 Multivitamins (Multivitamin) 30 ml DAILY NGT Last administered on 12/14/16 09: 33; Admin Dose 30 ML; Start 11/29/16 at 10:30 Hydralazine HCl (Apresoline) 10 mg Q2 PRN IV For SBP >170 Last administered on 12/11/16 08:33; Admin Dose 10 MG; Start 12/04/16 at 00:00 IV Flush (NS 10 ml) 10 ml PRN PRN IV IV PROTOCOL Last administered on 12/09/16 20:42; Admin Dose 10 ML; Start 12/08/16 at 16:00 Diagnostic Test (Pha) (Accu-Chek) 1 ea 02 XX Last administered on 12/13/16 02: 00; Admin Dose 1 EA; Start 12/09/16 at 13:30 Aspirin (Aspirin) 81 mg DAILY PO Last administered on 12/14/16 09:39; Admin Dose 81 MG; Start 12/10/16 at 09:00 Quetiapine Fumarate (Seroquel) 25 mg Q4H PRN PO agitation Last administered on 12/12/16 22:09; Admin Dose 25 MG; Start 12/10/16 at 10:30 Lisinopril (Zestril) 20 mg BID PO Last administered on 12/14/16 09:32; Admin Dose 20 MG; Start 12/10/16 at 21:00 Haloperidol (Haldol) 0.5 mg Q4 PRN IV agitation Last administered on 12/14/16 00:21; Admin Dose 0.5 MG; Start 12/10/16 at 21:00 Haloperidol (Haldol) 0.5 mg Q4 PRN IM agitation Last administered on 12/14/16 12:08; Admin Dose 0.5 MG; Start 12/10/16 at 21:00 Famotidine (Pepcid) 20 mg DAILY NGT Last administered on 12/14/16 09:33; Admin Dose 20 MG; Start 12/12/16 at 09:00 Quetiapine Fumarate (Seroquel) 25 mg TID@09,16,22 PO Last administered on 09:39; Admin Dose 25 MG; Start 12/13/16 at 17:30 FÁTIMA PERES MD Dec 14, 2016 17:07
[2016-12-14] MEDS: ATORVASTATIN 10 MG TAB NGT SCH (20:35)
[2016-12-14] MEDS: INSULIN GLARGINE [LANtus] 3 ML PEN SC SCH (20:46)
[2016-12-15] VITALS (12 sets, daily range): BP systolic 100–135; BP diastolic 59–84; PULSE 40–63; RESP 16–21
[2016-12-15] MEDS: LEVALBUTEROL (NEB) 0.63 MG/3 ML AMP HHN SCH ×4 (01:46→19:29)
[2016-12-15] MEDS: IPRATROPIUM (NEB) 0.5 MG/2.5 ML AMP HHN SCH ×4 (01:46→19:29)
[2016-12-15] MEDS: ACCUCHECK 2 AM XX SCH (02:00)
[2016-12-15 06:09] LABS: ADD SCAN DIFF NO
[2016-12-15 06:38] LABS: BASOPHIL # 0.2 10^3/ul (0.0-0.1); EOSINOPHILS # 0.8 10^3/ul (0.0-0.5); EOSINOPHILS % 9.3 % (0.0-7.0); HEMATOCRIT 38.9 % (42.0-52.0); HEMOGLOBIN 12.2 g/dl (14.0-18.0); LYMPHOCYTES # 2.3 10^3/ul (0.8-2.9); LYMPHOCYTES % 25.7 % (15.0-51.0); MEAN CORPUSCULAR HEMOGLOBIN 29.5 pg (29.0-33.0); MEAN CORPUSCULAR HGB CONC 31.4 g/dl (32.0-37.0); MONOCYTE # 0.7 10^3/ul (0.3-0.9); NEUTROPHIL # 4.8 10^3/ul (1.6-7.5); NEUTROPHILS % 54.5 % (39.0-77.0); PLATELET COUNT 275 10^3/UL (140-415); RED BLOOD COUNT 4.14 10^6/ul (4.70-6.10); RED CELL DISTRIBUTION WIDTH 16.5 % (11.5-14.5); WHITE BLOOD COUNT 8.8 10^3/ul (4.8-10.8)
[2016-12-15 06:57] LABS: ALBUMIN/GLOBULIN RATIO 1.17; BILIRUBIN,INDIRECT 0.5 mg/dl (0-1.1); BILIRUBIN,TOTAL 0.5 mg/dl (0.2-1.3); CALCIUM 10.2 mg/dl (8.4-10.2); CREATININE 1.62 mg/dl (0.61-1.24); TOTAL PROTEIN 7.4 g/dl (6.1-8.1)
[2016-12-15] MEDS: Insulin NOVOLOG SS MODERATE Algorithm (SS with meals and bedtime) SC SCH ×5 (07:55→20:32)
--- NOTE | 2016-12-15 08:56 | PN ---
Date/Time of Note Date/Time of Note DATE: 12/15/16 TIME: 08:55 Assessment/Plan VTE Prophylaxis VTE Prophylaxis Intervention: ambulation Lines/Catheters [facility] Saline Lock Urinary Cath still in place: No Assessment/Plan Chief Complaint/Hosp Course ASSESSMENT AND PLAN: 1. Status post ST elevation myocardial infarction, status post cardiac arrest secondary to ventricular tachycardia secondary to above. 2. Status post percutaneous coronary intervention of left circumflex artery. 3. Renal failure. Appears to be acute on chronic. Currently has improved significantly. 4. Congestive heart failure. 5. Recurrence of sustained ventricular tachycardia. 6. Paroxysmal atrial fibrillation: currently remains in NSR. 7. Severe encephalopathy. 8. Dyslipidemia. 9. Hypertension, 10. resp failure: extubated on 12/06/16 11. episodes of marked sinus bradycardia : r/o TAHMINA RECOMMENDATIONS: We will continue with current cardiac care off of amiodarone due to bradycardia and monitor. ASA brilinta statin lisinopril qd START PT and ambulation dc planning as per IM will f/u prn over the weekend . Problems: Subjective 24 Hr Interval Summary Free Text/Dictation d/w staff and rhythm was reviewed. he remains in NSR/ Sinus bradycardia. PT Denies any chest pain to me. but pt is still confused. pt with intermittent asymptomatic sinus bradycardia. Objective: vascular: + necrosis of toes. Constitutional: awake no distress,, obese, Psych: agitated, combative. Head: atraumatic, normocephalic Eyes: EOMI, nl conjunctiva Neck: non-tender. no strider Respiratory: no wheezes. Cardiovascular: regular rate and rhythm. systolic murmur. Gastrointestinal: non-tender, soft Extremities: Trace LE edema Neurological: awake. alert, OX2 only. Exam/Review of Systems Vital Signs Vitals Vital Signs Date Time Temp Pulse Resp B/P Pulse Ox O2 Delivery O2 Flow Rate FiO2 12/15/16 08:01 58 12/15/16 07:31 18 98 21 12/15/16 04:19 97.5 123/82 12/14/16 19:00 Nasal Cannula 2.0 Intake and Output 12/14/16 12/14/16 12/15/16 15:00 23:00 07:00 Intake Total 500 ml Balance 500 ml Results Result Diagram: 12/15/16 0555 12/15/16 0550 Results 24 hrs Laboratory Tests Test 12/14/16 12:21 12/14/16 17:29 12/14/16 20:33 12/15/16 05:50 Bedside Glucose 113 97 110 Sodium Level 140 Potassium Level 4.0 Chloride Level 107 Carbon Dioxide Level 23 Anion Gap 14 Blood Urea Nitrogen 18 Creatinine 1.62 H Glucose Level 94 Calcium Level 10.2 Magnesium Level 2.0 Total Bilirubin 0.5 Direct Bilirubin 0.00 Indirect Bilirubin 0.5 Aspartate Amino Transf (AST/SGOT) 24 Alanine Aminotransferase (ALT/SGPT) 40 Alkaline Phosphatase 113 B-Type Natriuretic Peptide 2150 H Total Protein 7.4 Albumin 4.0 Globulin 3.40 H Albumin/Globulin Ratio 1.17 Test 12/15/16 05:55 12/15/16 08:27 White Blood Count 8.8 # Red Blood Count 4.14 L Hemoglobin 12.2 L Hematocrit 38.9 L Mean Corpuscular Volume 94.0 Mean Corpuscular Hemoglobin 29.5 Mean Corpuscular Hemoglobin Concent 31.4 L Red Cell Distribution Width 16.5 H Platelet Count 275 Mean Platelet Volume 11.0 H Neutrophils % 54.5 Lymphocytes % 25.7 Monocytes % 8.0 Eosinophils % 9.3 H Basophils % 2.0 Nucleated Red Blood Cells % 0.0 Neutrophils # 4.8 Lymphocytes # 2.3 Monocytes # 0.7 Eosinophils # 0.8 H Basophils # 0.2 H Nucleated Red Blood Cells # 0.0 Bedside Glucose 73 Medications Medications Current Medications Ticagrelor (Brilinta) 90 mg BID PO Last administered on 12/14/16 20:47; Admin Dose 90 MG; Start 11/19/16 at 21:00 Ondansetron HCl (Zofran Inj) 4 mg Q6H PRN IV NAUSEA AND/OR VOMITING; Start 04/27 at 17:00 Acetaminophen (Tylenol Liquid) 650 mg Q6H PRN PO PAIN LEVEL 1-3 OR FEVER Last administered on 12/10/16 03:59; Admin Dose 650 MG; Start 11/19/16 at 17:00 Acetaminophen (Tylenol Supp) 650 mg Q4H PRN [place] PAIN LEVEL 1-3 OR FEVER; Start 11/19/16 at 17:00 Docusate Sodium (Colace) 100 mg Q12H PRN PO CONSTIPATION; Start 11/19/16 at 17: 00 Magnesium Hydroxide (Milk Of Mag) 30 ml DAILY PRN PO CONSTIPATION Last administered on 11/29/16 09:23; Admin Dose 30 ML; Start 11/19/16 at 17:00 Bisacodyl (Dulcolax Supp) 10 mg DAILY PRN [place] CONSTIPATION Last administered on 11/29/16 09:23; Admin Dose 10 MG; Start 11/19/16 at 17:00 Miscellaneous Information 1 ea NOTE XX ; Start 11/19/16 at 17:30 Glucose (Glutose) 15 gm Q15M PRN PO DECREASED GLUCOSE; Start 11/19/16 at 17:30 Glucose (Glutose) 22.5 gm Q15M PRN PO DECREASED GLUCOSE; Start 11/19/16 at 17: 30 Dextrose (D50w Syringe) 25 ml Q15M PRN IV DECREASED GLUCOSE Last administered on 12/03/16 20:15; Admin Dose 25 ML; Start 11/19/16 at 17:30 Dextrose (D50w Syringe) 50 ml Q15M PRN IV DECREASED GLUCOSE; Start 11/19/16 at 17:30 Glucagon (Glucagen) 1 mg Q15M PRN IM DECREASED GLUCOSE; Start 11/19/16 at 17:30 Glucose (Glutose) 15 gm Q15M PRN BUCCAL DECREASED GLUCOSE; Start 11/19/16 at 17 :30 Atorvastatin Calcium (Lipitor) 10 mg HS NGT Last administered on 12/14/16 20:35 ; Admin Dose 10 MG; Start 11/24/16 at 21:00 Mupirocin (Bactroban) 1 applic BID TOP Last administered on 12/14/16 20:39; Admin Dose 1 APPLIC; Start 11/27/16 at 09:30 Insulin Glargine (Lantus) 20 unit DAILY@20 SC Last administered on 12/14/16 20: 46; Admin Dose 20 UNIT; Start 11/27/16 at 20:00 Thiamine HCl (Vitamin B1) 100 mg DAILY IV Last administered on 12/14/16 12:09; Admin Dose 100 MG; Start 11/29/16 at 10:00 Folic Acid (Folic Acid) 1 mg DAILY NGT Last administered on 12/14/16 09:33; Admin Dose 1 MG; Start 11/29/16 at 10:00 Multivitamins (Multivitamin) 30 ml DAILY NGT Last administered on 12/14/16 09: 33; Admin Dose 30 ML; Start 11/29/16 at 10:30 Hydralazine HCl (Apresoline) 10 mg Q2 PRN IV For SBP >170 Last administered on 12/11/16 08:33; Admin Dose 10 MG; Start 12/04/16 at 00:00 IV Flush (NS 10 ml) 10 ml PRN PRN IV IV PROTOCOL Last administered on 12/09/16 20:42; Admin Dose 10 ML; Start 12/08/16 at 16:00 Diagnostic Test (Pha) (Accu-Chek) 1 ea 02 XX Last administered on 12/13/16 02: 00; Admin Dose 1 EA; Start 12/09/16 at 13:30 Aspirin (Aspirin) 81 mg DAILY PO Last administered on 12/14/16 09:39; Admin Dose 81 MG; Start 12/10/16 at 09:00 Quetiapine Fumarate (Seroquel) 25 mg Q4H PRN PO agitation Last administered on 12/12/16 22:09; Admin Dose 25 MG; Start 12/10/16 at 10:30 Lisinopril (Zestril) 20 mg BID PO Last administered on 12/14/16 09:32; Admin Dose 20 MG; Start 12/10/16 at 21:00 Haloperidol (Haldol) 0.5 mg Q4 PRN IV agitation Last administered on 12/14/16 00:21; Admin Dose 0.5 MG; Start 12/10/16 at 21:00 Haloperidol (Haldol) 0.5 mg Q4 PRN IM agitation Last administered on 12/14/16 12:08; Admin Dose 0.5 MG; Start 12/10/16 at 21:00 Famotidine (Pepcid) 20 mg DAILY NGT Last administered on 12/14/16 09:33; Admin Dose 20 MG; Start 12/12/16 at 09:00 Quetiapine Fumarate (Seroquel) 25 mg TID@,16,22 PO Last administered on 23:13; Admin Dose 25 MG; Start 12/13/16 at 17:30 SERENA ALCARAZ MD Dec 15, 2016 08:56
[2016-12-15] MEDS: QUETIAPINE 25 MG TAB PO SCH ×3 (09:00→20:20)
[2016-12-15] MEDS: THIAMINE 200 MG INJ IV SCH (09:01)
[2016-12-15] MEDS: FOLIC ACID 1 MG TAB NGT SCH (09:03)
[2016-12-15] MEDS: FAMOTIDINE 20 MG TAB NGT SCH (09:03)
[2016-12-15] MEDS: LISINOPRIL 20 MG TAB PO SCH ×2 (09:03→20:20)
[2016-12-15] MEDS: MULTIVITAMINS 30 ML CUP NGT SCH (09:03)
[2016-12-15] MEDS: ASPIRIN 81 MG TAB PO SCH (09:03)
[2016-12-15] MEDS: MUPIROCIN 2% 22 GM OINT TOP SCH ×2 (09:04→20:19)
--- NOTE | 2016-12-15 09:58 | PN ---
Date/Time of Note Date/Time of Note DATE: 12/15/16 TIME: 09:56 Assessment/Plan VTE Prophylaxis VTE Prophylaxis Intervention: SCD's Lines/Catheters [facility] Saline Lock Central line still needed: No Urinary Cath still in place: No Assessment/Plan Assessment/Plan 1. cards: s/p stemi with stent to Lcx (b) ischemic cardiomyopathy (c) paroxysmal a fib (d0 chf but now euvolemic 2. ischemic necrosis of toes, monitor, 3. tobacco abvuse, cessation counselled 4. patient remains stable for snf Subjective 24 Hr Interval Summary Free Text/Dictation no compalints, less angry today Exam/Review of Systems Vital Signs Vitals Vital Signs Date Time Temp Pulse Resp B/P Pulse Ox O2 Delivery O2 Flow Rate FiO2 12/15/16 08:01 58 12/15/16 08:00 98.7 21 115/78 98 12/15/16 07:31 21 12/14/16 19:00 Nasal Cannula 2.0 Intake and Output 12/14/16 12/14/16 12/15/16 15:00 23:00 07:00 Intake Total 500 ml Balance 500 ml Exam nad, ctab, rrr, necrosis of toes stable Results Result Diagram: 12/15/16 0555 12/15/16 0550 Results 24 hrs Laboratory Tests Test 12/14/16 12:21 12/14/16 17:29 12/14/16 20:33 12/15/16 05:50 Bedside Glucose 113 97 110 Sodium Level 140 Potassium Level 4.0 Chloride Level 107 Carbon Dioxide Level 23 Anion Gap 14 Blood Urea Nitrogen 18 Creatinine 1.62 H Glucose Level 94 Calcium Level 10.2 Magnesium Level 2.0 Total Bilirubin 0.5 Direct Bilirubin 0.00 Indirect Bilirubin 0.5 Aspartate Amino Transf (AST/SGOT) 24 Alanine Aminotransferase (ALT/SGPT) 40 Alkaline Phosphatase 113 B-Type Natriuretic Peptide 2150 H Total Protein 7.4 Albumin 4.0 Globulin 3.40 H Albumin/Globulin Ratio 1.17 Test 12/15/16 05:55 12/15/16 08:27 White Blood Count 8.8 # Red Blood Count 4.14 L Hemoglobin 12.2 L Hematocrit 38.9 L Mean Corpuscular Volume 94.0 Mean Corpuscular Hemoglobin 29.5 Mean Corpuscular Hemoglobin Concent 31.4 L Red Cell Distribution Width 16.5 H Platelet Count 275 Mean Platelet Volume 11.0 H Neutrophils % 54.5 Lymphocytes % 25.7 Monocytes % 8.0 Eosinophils % 9.3 H Basophils % 2.0 Nucleated Red Blood Cells % 0.0 Neutrophils # 4.8 Lymphocytes # 2.3 Monocytes # 0.7 Eosinophils # 0.8 H Basophils # 0.2 H Nucleated Red Blood Cells # 0.0 Bedside Glucose 73 Medications Medications Current Medications Ticagrelor (Brilinta) 90 mg BID PO Last administered on 12/14/16 20:47; Admin Dose 90 MG; Start 11/19/16 at 21:00 Ondansetron HCl (Zofran Inj) 4 mg Q6H PRN IV NAUSEA AND/OR VOMITING; Start 04/27 at 17:00 Acetaminophen (Tylenol Liquid) 650 mg Q6H PRN PO PAIN LEVEL 1-3 OR FEVER Last administered on 12/10/16 03:59; Admin Dose 650 MG; Start 11/19/16 at 17:00 Acetaminophen (Tylenol Supp) 650 mg Q4H PRN [place] PAIN LEVEL 1-3 OR FEVER; Start 11/19/16 at 17:00 Docusate Sodium (Colace) 100 mg Q12H PRN PO CONSTIPATION; Start 11/19/16 at 17: 00 Magnesium Hydroxide (Milk Of Mag) 30 ml DAILY PRN PO CONSTIPATION Last administered on 11/29/16 09:23; Admin Dose 30 ML; Start 11/19/16 at 17:00 Bisacodyl (Dulcolax Supp) 10 mg DAILY PRN [place] CONSTIPATION Last administered on 11/29/16 09:23; Admin Dose 10 MG; Start 11/19/16 at 17:00 Miscellaneous Information 1 ea NOTE XX ; Start 11/19/16 at 17:30 Glucose (Glutose) 15 gm Q15M PRN PO DECREASED GLUCOSE; Start 11/19/16 at 17:30 Glucose (Glutose) 22.5 gm Q15M PRN PO DECREASED GLUCOSE; Start 11/19/16 at 17: 30 Dextrose (D50w Syringe) 25 ml Q15M PRN IV DECREASED GLUCOSE Last administered on 12/03/16 20:15; Admin Dose 25 ML; Start 11/19/16 at 17:30 Dextrose (D50w Syringe) 50 ml Q15M PRN IV DECREASED GLUCOSE; Start 11/19/16 at 17:30 Glucagon (Glucagen) 1 mg Q15M PRN IM DECREASED GLUCOSE; Start 11/19/16 at 17:30 Glucose (Glutose) 15 gm Q15M PRN BUCCAL DECREASED GLUCOSE; Start 11/19/16 at 17 :30 Atorvastatin Calcium (Lipitor) 10 mg HS NGT Last administered on 12/14/16 20:35 ; Admin Dose 10 MG; Start 11/24/16 at 21:00 Mupirocin (Bactroban) 1 applic BID TOP Last administered on 12/15/16 09:04; Admin Dose 1 APPLIC; Start 11/27/16 at 09:30 Insulin Glargine (Lantus) 20 unit DAILY@20 SC Last administered on 12/14/16 20: 46; Admin Dose 20 UNIT; Start 11/27/16 at 20:00 Thiamine HCl (Vitamin B1) 100 mg DAILY IV Last administered on 12/15/16 09:01; Admin Dose 100 MG; Start 11/29/16 at 10:00 Folic Acid (Folic Acid) 1 mg DAILY NGT Last administered on 12/15/16 09:03; Admin Dose 1 MG; Start 11/29/16 at 10:00 Multivitamins (Multivitamin) 30 ml DAILY NGT Last administered on 12/15/16 09: 03; Admin Dose 30 ML; Start 11/29/16 at 10:30 Hydralazine HCl (Apresoline) 10 mg Q2 PRN IV For SBP >170 Last administered on 12/11/16 08:33; Admin Dose 10 MG; Start 12/04/16 at 00:00 IV Flush (NS 10 ml) 10 ml PRN PRN IV IV PROTOCOL Last administered on 12/09/16 20:42; Admin Dose 10 ML; Start 12/08/16 at 16:00 Diagnostic Test (Pha) (Accu-Chek) 1 ea 02 XX Last administered on 12/13/16 02: 00; Admin Dose 1 EA; Start 12/09/16 at 13:30 Aspirin (Aspirin) 81 mg DAILY PO Last administered on 12/15/16 09:03; Admin Dose 81 MG; Start 12/10/16 at 09:00 Quetiapine Fumarate (Seroquel) 25 mg Q4H PRN PO agitation Last administered on 12/12/16 22:09; Admin Dose 25 MG; Start 12/10/16 at 10:30 Lisinopril (Zestril) 20 mg BID PO Last administered on 12/15/16 09:03; Admin Dose 20 MG; Start 12/10/16 at 21:00 Haloperidol (Haldol) 0.5 mg Q4 PRN IV agitation Last administered on 12/14/16 00:21; Admin Dose 0.5 MG; Start 12/10/16 at 21:00 Haloperidol (Haldol) 0.5 mg Q4 PRN IM agitation Last administered on 12/14/16 12:08; Admin Dose 0.5 MG; Start 12/10/16 at 21:00 Famotidine (Pepcid) 20 mg DAILY NGT Last administered on 12/15/16 09:03; Admin Dose 20 MG; Start 12/12/16 at 09:00 Quetiapine Fumarate (Seroquel) 25 mg TID@,, PO Last administered on 23:13; Admin Dose 25 MG; Start 12/13/16 at 17:30 RODRIGO HENLEY MD Dec 15, 2016 09:58
[2016-12-15] MEDS: TICAGRELOR 90 MG TABLET PO SCH ×2 (10:13→20:29)
--- NOTE | 2016-12-15 17:46 | CONS ---
Date/Time of Note Date/Time of Note DATE: 12/15/16 TIME: 17:45 Assessment/Plan Assessment/Plan Additional Assessment/Plan 1. Acute kidney injury on possible previous chronic kidney disease with last creatinine known about 1.48 secondary to acute tubular necrosis from ischemic acute tubular necrosis from cardiogenic shock.- Improving with good urine output 2. Acute respiratory failure from cardiogenic shock, currently intubated on ventilator-s/p extubation 12/06/16 3. Acute non-ST elevation myocardial infarction, s/p v tach arrest s/p pci of RCA, possible staged procedure to LCx required s/p IABP, now off 4. History of possible chronic kidney disease secondary to diabetic nephropathy , unknown stage. 5. History of type 2 diabetes mellitus. 6. History of hypertension. 7. paroxysmal atrial fibrillation 8. Ischemic Cardiomyopathy with EF 45% 9. Ischemic necrosis of toes Plan: no labs to review Requiring sitter for agitation DNR, no indication for renal replacement therapy at this time will sign off, call us if ay questions Consultation Date/Type/Reason Admit Date/Time Nov 19, 2016 at 16:09 Initial Consult Date Nov Type of Consultation: NEPHROLOGY Referring Provider: PIO VEGA 24 HR Interval Summary Free Text/Dictation no evente no labs, awaitin gplacment Exam/Review of Systems Vital Signs Vitals Vital Signs Date Time Temp Pulse Resp B/P Pulse Ox O2 Delivery O2 Flow Rate FiO2 12/15/16 17:36 98.3 61 20 114/74 99 12/15/16 14:36 21 12/15/16 08:30 Nasal Cannula 2.0 Intake and Output 12/14/16 12/14/16 12/15/16 15:00 23:00 07:00 Intake Total 500 ml Balance 500 ml Results Result Diagram: 12/15/16 0555 12/15/16 0550 Results 24 hrs Laboratory Tests Test 12/14/16 20:33 12/15/16 05:50 12/15/16 05:55 12/15/16 08:27 Bedside Glucose 110 73 Sodium Level 140 Potassium Level 4.0 Chloride Level 107 Carbon Dioxide Level 23 Anion Gap 14 Blood Urea Nitrogen 18 Creatinine 1.62 H Glucose Level 94 Calcium Level 10.2 Magnesium Level 2.0 Total Bilirubin 0.5 Direct Bilirubin 0.00 Indirect Bilirubin 0.5 Aspartate Amino Transf (AST/SGOT) 24 Alanine Aminotransferase (ALT/SGPT) 40 Alkaline Phosphatase 113 B-Type Natriuretic Peptide 2150 H Total Protein 7.4 Albumin 4.0 Globulin 3.40 H Albumin/Globulin Ratio 1.17 White Blood Count 8.8 # Red Blood Count 4.14 L Hemoglobin 12.2 L Hematocrit 38.9 L Mean Corpuscular Volume 94.0 Mean Corpuscular Hemoglobin 29.5 Mean Corpuscular Hemoglobin Concent 31.4 L Red Cell Distribution Width 16.5 H Platelet Count 275 Mean Platelet Volume 11.0 H Neutrophils % 54.5 Lymphocytes % 25.7 Monocytes % 8.0 Eosinophils % 9.3 H Basophils % 2.0 Nucleated Red Blood Cells % 0.0 Neutrophils # 4.8 Lymphocytes # 2.3 Monocytes # 0.7 Eosinophils # 0.8 H Basophils # 0.2 H Nucleated Red Blood Cells # 0.0 Test 12/15/16 11:56 12/15/16 17:36 Bedside Glucose 116 116 Medications Medications Current Medications Ticagrelor (Brilinta) 90 mg BID PO Last administered on 12/15/16 10:13; Admin Dose 90 MG; Start 11/19/16 at 21:00 Ondansetron HCl (Zofran Inj) 4 mg Q6H PRN IV NAUSEA AND/OR VOMITING; Start 04/27 at 17:00 Acetaminophen (Tylenol Liquid) 650 mg Q6H PRN PO PAIN LEVEL 1-3 OR FEVER Last administered on 12/10/16 03:59; Admin Dose 650 MG; Start 11/19/16 at 17:00 Acetaminophen (Tylenol Supp) 650 mg Q4H PRN [place] PAIN LEVEL 1-3 OR FEVER; Start 11/19/16 at 17:00 Docusate Sodium (Colace) 100 mg Q12H PRN PO CONSTIPATION; Start 11/19/16 at 17: 00 Magnesium Hydroxide (Milk Of Mag) 30 ml DAILY PRN PO CONSTIPATION Last administered on 11/29/16 09:23; Admin Dose 30 ML; Start 11/19/16 at 17:00 Bisacodyl (Dulcolax Supp) 10 mg DAILY PRN [place] CONSTIPATION Last administered on 11/29/16 09:23; Admin Dose 10 MG; Start 11/19/16 at 17:00 Miscellaneous Information 1 ea NOTE XX ; Start 11/19/16 at 17:30 Glucose (Glutose) 15 gm Q15M PRN PO DECREASED GLUCOSE; Start 11/19/16 at 17:30 Glucose (Glutose) 22.5 gm Q15M PRN PO DECREASED GLUCOSE; Start 11/19/16 at 17: 30 Dextrose (D50w Syringe) 25 ml Q15M PRN IV DECREASED GLUCOSE Last administered on 12/03/16 20:15; Admin Dose 25 ML; Start 11/19/16 at 17:30 Dextrose (D50w Syringe) 50 ml Q15M PRN IV DECREASED GLUCOSE; Start 11/19/16 at 17:30 Glucagon (Glucagen) 1 mg Q15M PRN IM DECREASED GLUCOSE; Start 11/19/16 at 17:30 Glucose (Glutose) 15 gm Q15M PRN BUCCAL DECREASED GLUCOSE; Start 11/19/16 at 17 :30 Atorvastatin Calcium (Lipitor) 10 mg HS NGT Last administered on 12/14/16 20:35 ; Admin Dose 10 MG; Start 11/24/16 at 21:00 Mupirocin (Bactroban) 1 applic BID TOP Last administered on 12/15/16 09:04; Admin Dose 1 APPLIC; Start 11/27/16 at 09:30 Insulin Glargine (Lantus) 20 unit DAILY@20 SC Last administered on 12/14/16 20: 46; Admin Dose 20 UNIT; Start 11/27/16 at 20:00 Thiamine HCl (Vitamin B1) 100 mg DAILY IV Last administered on 12/15/16 09:01; Admin Dose 100 MG; Start 11/29/16 at 10:00 Folic Acid (Folic Acid) 1 mg DAILY NGT Last administered on 12/15/16 09:03; Admin Dose 1 MG; Start 11/29/16 at 10:00 Multivitamins (Multivitamin) 30 ml DAILY NGT Last administered on 12/15/16 09: 03; Admin Dose 30 ML; Start 11/29/16 at 10:30 Hydralazine HCl (Apresoline) 10 mg Q2 PRN IV For SBP >170 Last administered on 12/11/16 08:33; Admin Dose 10 MG; Start 12/04/16 at 00:00 IV Flush (NS 10 ml) 10 ml PRN PRN IV IV PROTOCOL Last administered on 12/09/16 20:42; Admin Dose 10 ML; Start 12/08/16 at 16:00 Diagnostic Test (Pha) (Accu-Chek) 1 ea 02 XX Last administered on 12/13/16 02: 00; Admin Dose 1 EA; Start 12/09/16 at 13:30 Aspirin (Aspirin) 81 mg DAILY PO Last administered on 12/15/16 09:03; Admin Dose 81 MG; Start 12/10/16 at 09:00 Quetiapine Fumarate (Seroquel) 25 mg Q4H PRN PO agitation Last administered on 12/12/16 22:09; Admin Dose 25 MG; Start 12/10/16 at 10:30 Lisinopril (Zestril) 20 mg BID PO Last administered on 12/15/16 09:03; Admin Dose 20 MG; Start 12/10/16 at 21:00 Haloperidol (Haldol) 0.5 mg Q4 PRN IV agitation Last administered on 12/14/16 00:21; Admin Dose 0.5 MG; Start 12/10/16 at 21:00 Haloperidol (Haldol) 0.5 mg Q4 PRN IM agitation Last administered on 12/14/16 12:08; Admin Dose 0.5 MG; Start 12/10/16 at 21:00 Famotidine (Pepcid) 20 mg DAILY NGT Last administered on 12/15/16 09:03; Admin Dose 20 MG; Start 12/12/16 at 09:00 Quetiapine Fumarate (Seroquel) 25 mg TID@,16,22 PO Last administered on 23:13; Admin Dose 25 MG; Start 12/13/16 at 17:30 FÁTIMA PERES MD Dec 15, 2016 17:46
[2016-12-15] MEDS: ATORVASTATIN 10 MG TAB NGT SCH (20:19)
[2016-12-15] MEDS: INSULIN GLARGINE [LANtus] 3 ML PEN SC SCH (20:30)
[2016-12-15] MEDS: HALOPERIDOL 5 MG INJ IV PRN (23:13)
[2016-12-16] VITALS (13 sets, daily range): BP systolic 117–137; BP diastolic 64–89; PULSE 30–63; RESP 18–19
[2016-12-16] MEDS: IPRATROPIUM (NEB) 0.5 MG/2.5 ML AMP HHN SCH ×4 (01:26→19:38)
[2016-12-16] MEDS: LEVALBUTEROL (NEB) 0.63 MG/3 ML AMP HHN SCH ×4 (01:26→19:38)
[2016-12-16] MEDS: ACCUCHECK 2 AM XX SCH (02:00)
[2016-12-16] MEDS: Insulin NOVOLOG SS MODERATE Algorithm (SS with meals and bedtime) SC SCH ×4 (07:55→20:59)
[2016-12-16] MEDS: MUPIROCIN 2% 22 GM OINT TOP SCH ×2 (09:00→21:02)
[2016-12-16] MEDS: FAMOTIDINE 20 MG TAB NGT SCH (09:53)
[2016-12-16] MEDS: FOLIC ACID 1 MG TAB NGT SCH (09:53)
[2016-12-16] MEDS: ASPIRIN 81 MG TAB PO SCH (09:53)
[2016-12-16] MEDS: MULTIVITAMINS 30 ML CUP NGT SCH (09:54)
[2016-12-16] MEDS: THIAMINE 200 MG INJ IV SCH (09:54)
[2016-12-16] MEDS: QUETIAPINE 25 MG TAB PO SCH ×3 (09:54→21:01)
[2016-12-16] MEDS: LISINOPRIL 20 MG TAB PO SCH ×2 (09:54→21:00)
[2016-12-16] MEDS: TICAGRELOR 90 MG TABLET PO SCH ×2 (10:00→21:09)
[2016-12-16] MEDS: HALOPERIDOL 1 MG TAB PO SCH ×3 (11:22→21:01)
[2016-12-16] MEDS: HALOPERIDOL 5 MG INJ IM PRN (15:04)
[2016-12-16] MEDS: INSULIN GLARGINE [LANtus] 3 ML PEN SC SCH (20:00)
[2016-12-16] MEDS: ATORVASTATIN 10 MG TAB NGT SCH (21:00)
[2016-12-17] VITALS (11 sets, daily range): BP systolic 77–126; BP diastolic 51–85; PULSE 48–65; RESP 17–20
[2016-12-17] MEDS: LEVALBUTEROL (NEB) 0.63 MG/3 ML AMP HHN SCH ×4 (01:43→19:43)
[2016-12-17] MEDS: IPRATROPIUM (NEB) 0.5 MG/2.5 ML AMP HHN SCH ×4 (01:43→19:43)
[2016-12-17] MEDS: ACCUCHECK 2 AM XX SCH (02:00)
[2016-12-17 07:19] LABS: ALBUMIN 4.3 g/dl (3.3-4.9); CALCIUM 10.4 mg/dl (8.4-10.2); CREATININE 1.86 mg/dl (0.61-1.24); PHOSPHORUS 3.7 mg/dl (2.5-4.9); POTASSIUM 4.3 mmol/L (3.5-5.1)
[2016-12-17] MEDS: Insulin NOVOLOG SS MODERATE Algorithm (SS with meals and bedtime) SC SCH ×4 (07:55→21:00)
[2016-12-17] MEDS: LISINOPRIL 20 MG TAB PO SCH ×2 (08:56→21:00)
[2016-12-17] MEDS: HALOPERIDOL 1 MG TAB PO SCH ×3 (08:56→21:00)
[2016-12-17] MEDS: MULTIVITAMINS 30 ML CUP NGT SCH (08:56)
[2016-12-17] MEDS: ASPIRIN 81 MG TAB PO SCH (08:56)
[2016-12-17] MEDS: FOLIC ACID 1 MG TAB NGT SCH (08:56)
[2016-12-17] MEDS: TICAGRELOR 90 MG TABLET PO SCH ×2 (08:58→21:00)
[2016-12-17] MEDS: QUETIAPINE 25 MG TAB PO SCH ×3 (08:59→23:09)
[2016-12-17] MEDS: FAMOTIDINE 20 MG TAB NGT SCH (08:59)
--- NOTE | 2016-12-17 09:11 | PN ---
Date/Time of Note Date/Time of Note DATE: 12/17/16 TIME: 09:01 Assessment/Plan VTE Prophylaxis VTE Prophylaxis Intervention: SCD's Lines/Catheters [facility] [place] [facility] Urinary Cath still in place: No Assessment/Plan Assessment/Plan 56 year old male with multiple medical problems: 1. Paranoia/Biploar disorder: improving with haldol 2 mg TID and seroquel. Will increase seroquel in next 24 hours to stablize mood and wean off haldol. 2. NEHA: likely secondary to poor po intake. Will start IVF and recheck in the AM. 3. Cardiomyopathy: Stable; continue current meds. 4. Sinus sheba with RBBB: stable BP; not on beta-mike. 5. CAD: continue Brillinta for stent. 6. GI/DVT: prophylaxis: will start protonix and d/c pepcid; continue SCDs. 7. Dispo: Awaiting placement. Subjective 24 Hr Interval Summary Free Text/Dictation Resting comfortably in bed with eyes closed. Less delusional behavior and paranoia. Sitter is also stating that the patient is more calm/less agitated with increasing haldol. Previously, he was refusing his seroquel. Exam/Review of Systems Vital Signs Vitals Vital Signs Date Time Temp Pulse Resp B/P Pulse Ox O2 Delivery O2 Flow Rate FiO2 12/17/16 08:21 48 12/17/16 08:21 16 94 21 12/17/16 03:44 98.2 126/85 12/16/16 20:00 Nasal Cannula 2.0 Intake and Output 12/16/16 12/16/16 12/17/16 15:00 23:00 07:00 Intake Total 200 ml Balance 200 ml Exam Constitutional: alert, oriented Psych: anxiety, other (paranoid) Head: normocephalic Eyes: nl conjunctiva ENMT: nl external ears & nose Neck: supple Respiratory: clear to auscultation Cardiovascular: regular rate and rhythm Gastrointestinal: soft Extremities: normal pulses Results Result Diagram: 12/15/16 0555 12/17/16 0619 Results 24 hrs Laboratory Tests Test 12/16/16 11:25 12/16/16 17:13 12/16/16 20:57 12/17/16 06:19 Bedside Glucose 107 130 94 Sodium Level 140 Potassium Level 4.3 Chloride Level 106 Carbon Dioxide Level 23 Anion Gap 15 Blood Urea Nitrogen 20 Creatinine 1.86 H Glucose Level 107 Calcium Level 10.4 H Phosphorus Level 3.7 Albumin 4.3 Test 12/17/16 08:00 Bedside Glucose 99 Medications Medications Current Medications Ticagrelor (Brilinta) 90 mg BID PO Last administered on 12/17/16 08:58; Admin Dose 90 MG; Start 11/19/16 at 21:00 Ondansetron HCl (Zofran Inj) 4 mg Q6H PRN IV NAUSEA AND/OR VOMITING; Start 04/27 at 17:00 Acetaminophen (Tylenol Liquid) 650 mg Q6H PRN PO PAIN LEVEL 1-3 OR FEVER Last administered on 12/10/16 03:59; Admin Dose 650 MG; Start 11/19/16 at 17:00 Acetaminophen (Tylenol Supp) 650 mg Q4H PRN [place] PAIN LEVEL 1-3 OR FEVER; Start 11/19/16 at 17:00 Docusate Sodium (Colace) 100 mg Q12H PRN PO CONSTIPATION; Start 11/19/16 at 17: 00 Magnesium Hydroxide (Milk Of Mag) 30 ml DAILY PRN PO CONSTIPATION Last administered on 11/29/16 09:23; Admin Dose 30 ML; Start 11/19/16 at 17:00 Bisacodyl (Dulcolax Supp) 10 mg DAILY PRN [place] CONSTIPATION Last administered on 11/29/16 09:23; Admin Dose 10 MG; Start 11/19/16 at 17:00 Miscellaneous Information 1 ea NOTE XX ; Start 11/19/16 at 17:30 Glucose (Glutose) 15 gm Q15M PRN PO DECREASED GLUCOSE; Start 11/19/16 at 17:30 Glucose (Glutose) 22.5 gm Q15M PRN PO DECREASED GLUCOSE; Start 11/19/16 at 17: 30 Dextrose (D50w Syringe) 25 ml Q15M PRN IV DECREASED GLUCOSE Last administered on 12/03/16 20:15; Admin Dose 25 ML; Start 11/19/16 at 17:30 Dextrose (D50w Syringe) 50 ml Q15M PRN IV DECREASED GLUCOSE; Start 11/19/16 at 17:30 Glucagon (Glucagen) 1 mg Q15M PRN IM DECREASED GLUCOSE; Start 11/19/16 at 17:30 Glucose (Glutose) 15 gm Q15M PRN BUCCAL DECREASED GLUCOSE; Start 11/19/16 at 17 :30 Atorvastatin Calcium (Lipitor) 10 mg HS NGT Last administered on 12/16/16 21:00 ; Admin Dose 10 MG; Start 11/24/16 at 21:00 Mupirocin (Bactroban) 1 applic BID TOP Last administered on 12/16/16 21:02; Admin Dose 1 APPLIC; Start 11/27/16 at 09:30 Insulin Glargine (Lantus) 20 unit DAILY@20 SC Last administered on 12/15/16 20: 30; Admin Dose 20 UNIT; Start 11/27/16 at 20:00 Thiamine HCl (Vitamin B1) 100 mg DAILY IV Last administered on 12/16/16 09:54; Admin Dose 100 MG; Start 11/29/16 at 10:00 Folic Acid (Folic Acid) 1 mg DAILY NGT Last administered on 12/17/16 08:56; Admin Dose 1 MG; Start 11/29/16 at 10:00 Multivitamins (Multivitamin) 30 ml DAILY NGT Last administered on 12/17/16 08: 56; Admin Dose 30 ML; Start 11/29/16 at 10:30 Hydralazine HCl (Apresoline) 10 mg Q2 PRN IV For SBP >170 Last administered on 12/11/16 08:33; Admin Dose 10 MG; Start 12/04/16 at 00:00 IV Flush (NS 10 ml) 10 ml PRN PRN IV IV PROTOCOL Last administered on 12/09/16 20:42; Admin Dose 10 ML; Start 12/08/16 at 16:00 Diagnostic Test (Pha) (Accu-Chek) 1 ea 02 XX Last administered on 12/13/16 02: 00; Admin Dose 1 EA; Start 12/09/16 at 13:30 Aspirin (Aspirin) 81 mg DAILY PO Last administered on 12/17/16 08:56; Admin Dose 81 MG; Start 12/10/16 at 09:00 Quetiapine Fumarate (Seroquel) 25 mg Q4H PRN PO agitation Last administered on 12/12/16 22:09; Admin Dose 25 MG; Start 12/10/16 at 10:30 Lisinopril (Zestril) 20 mg BID PO Last administered on 12/17/16 08:56; Admin Dose 20 MG; Start 12/10/16 at 21:00 Haloperidol (Haldol) 0.5 mg Q4 PRN IV agitation Last administered on 12/15/16 23:13; Admin Dose 0.5 MG; Start 12/10/16 at 21:00 Haloperidol (Haldol) 0.5 mg Q4 PRN IM agitation Last administered on 12/16/16 15:04; Admin Dose 0.5 MG; Start 12/10/16 at 21:00 Famotidine (Pepcid) 20 mg DAILY NGT Last administered on 12/17/16 08:59; Admin Dose 20 MG; Start 12/12/16 at 09:00 Quetiapine Fumarate (Seroquel) 25 mg TID@09,16,22 PO Last administered on 08:59; Admin Dose 25 MG; Start 12/13/16 at 17:30 Haloperidol (Haldol) 2 mg TID PO Last administered on 12/17/16 08:56; Admin Dose 2 MG; Start 12/16/16 at 09:00 KYM BLUE MD Dec 17, 2016 09:11
[2016-12-17] MEDS: MUPIROCIN 2% 22 GM OINT TOP SCH ×2 (11:35→21:00)
[2016-12-17] MEDS: POTASSIUM CHLORIDE 10 MEQ in SOD CHLORIDE 0.9% 1,000 ML IV SCH ×2 (11:35→23:10)
[2016-12-17] MEDS: PANTOPRAZOLE (EC) 40 MG TAB PO SCH (11:35)
[2016-12-17] MEDS: THIAMINE 200 MG INJ IV SCH (11:35)
[2016-12-17] MEDS: INSULIN GLARGINE [LANtus] 3 ML PEN SC SCH (20:00)
[2016-12-17] MEDS: ATORVASTATIN 10 MG TAB NGT SCH (21:12)
[2016-12-18] VITALS (13 sets, daily range): BP systolic 99–125; BP diastolic 56–75; PULSE 30–54; RESP 18–20
[2016-12-18] MEDS: LEVALBUTEROL (NEB) 0.63 MG/3 ML AMP HHN SCH ×4 (01:45→19:30)
[2016-12-18] MEDS: IPRATROPIUM (NEB) 0.5 MG/2.5 ML AMP HHN SCH ×4 (01:45→19:29)
[2016-12-18] MEDS: ACCUCHECK 2 AM XX SCH (02:00)
[2016-12-18] MEDS: PANTOPRAZOLE (EC) 40 MG TAB PO SCH (05:53)
[2016-12-18] MEDS: Insulin NOVOLOG SS MODERATE Algorithm (SS with meals and bedtime) SC SCH ×4 (08:30→21:00)
[2016-12-18] MEDS: MULTIVITAMINS 30 ML CUP NGT SCH (08:46)
[2016-12-18] MEDS: ASPIRIN 81 MG TAB PO SCH (08:46)
[2016-12-18] MEDS: FOLIC ACID 1 MG TAB NGT SCH (08:46)
[2016-12-18] MEDS: TICAGRELOR 90 MG TABLET PO SCH ×2 (08:54→21:28)
[2016-12-18] MEDS: LISINOPRIL 20 MG TAB PO SCH ×2 (09:00→21:00)
[2016-12-18] MEDS ORDERED: HALOPERIDOL 1 MG TAB PO SCH (09:00)
[2016-12-18] MEDS: THIAMINE 200 MG INJ IV SCH (09:00)
[2016-12-18] MEDS: QUETIAPINE 25 MG TAB PO SCH ×2 (09:00→21:22)
[2016-12-18] MEDS: MUPIROCIN 2% 22 GM OINT TOP SCH ×2 (09:12→21:00)
[2016-12-18 09:37] LABS: CALCIUM 9.7 mg/dl (8.4-10.2); CREATININE 1.96 mg/dl (0.61-1.24)
--- NOTE | 2016-12-18 11:41 | PN ---
Date/Time of Note Date/Time of Note DATE: 12/18/16 TIME: 11:40 Assessment/Plan VTE Prophylaxis VTE Prophylaxis Intervention: SCD's Lines/Catheters IV Catheter Type (from Nrsg): Peripheral IV Central line still needed: No Urinary Cath still in place: No Assessment/Plan Assessment/Plan 1. cards: s/p stemi with stent to LCx (b) ischemic cardiomyopathy (c) paroxysmal a fib 2. necrosis of toes relatecd to pressor 3. await placement Subjective 24 Hr Interval Summary Free Text/Dictation no complaints, anxious to go home much more pelasant today Exam/Review of Systems Vital Signs Vitals Vital Signs Date Time Temp Pulse Resp B/P Pulse Ox O2 Delivery O2 Flow Rate FiO2 12/18/16 08:16 54 12/18/16 08:00 Nasal Cannula 2.0 12/18/16 07:09 98.5 18 100/64 96 12/18/16 01:46 21 Intake and Output 12/17/16 12/17/16 12/18/16 15:00 23:00 07:00 Intake Total 700 ml 960 ml Output Total 270 ml Balance 430 ml 960 ml Exam nad, soft nt, ctab, rrr, toes with necrosis (unchanged) Results Result Diagram: 12/15/16 0555 12/18/16 0700 Results 24 hrs Laboratory Tests Test 12/17/16 17:33 12/17/16 21:09 12/18/16 02:28 12/18/16 07:00 Bedside Glucose 99 80 130 Sodium Level 138 Potassium Level 4.0 Chloride Level 107 Carbon Dioxide Level 20 L Anion Gap 15 Blood Urea Nitrogen 25 H Creatinine 1.96 H Glucose Level 159 Calcium Level 9.7 Thyroid Stimulating Hormone (TSH) Pending Free Thyroxine 1.87 H Test 12/18/16 08:42 Bedside Glucose 143 Medications Medications Current Medications Ticagrelor (Brilinta) 90 mg BID PO Last administered on 12/18/16 08:54; Admin Dose 90 MG; Start 11/19/16 at 21:00 Ondansetron HCl (Zofran Inj) 4 mg Q6H PRN IV NAUSEA AND/OR VOMITING; Start 04/27 at 17:00 Acetaminophen (Tylenol Liquid) 650 mg Q6H PRN PO PAIN LEVEL 1-3 OR FEVER Last administered on 12/10/16 03:59; Admin Dose 650 MG; Start 11/19/16 at 17:00 Acetaminophen (Tylenol Supp) 650 mg Q4H PRN [place] PAIN LEVEL 1-3 OR FEVER; Start 11/19/16 at 17:00 Docusate Sodium (Colace) 100 mg Q12H PRN PO CONSTIPATION; Start 11/19/16 at 17: 00 Magnesium Hydroxide (Milk Of Mag) 30 ml DAILY PRN PO CONSTIPATION Last administered on 11/29/16 09:23; Admin Dose 30 ML; Start 11/19/16 at 17:00 Bisacodyl (Dulcolax Supp) 10 mg DAILY PRN [place] CONSTIPATION Last administered on 11/29/16 09:23; Admin Dose 10 MG; Start 11/19/16 at 17:00 Miscellaneous Information 1 ea NOTE XX ; Start 11/19/16 at 17:30 Glucose (Glutose) 15 gm Q15M PRN PO DECREASED GLUCOSE; Start 11/19/16 at 17:30 Glucose (Glutose) 22.5 gm Q15M PRN PO DECREASED GLUCOSE; Start 11/19/16 at 17: 30 Dextrose (D50w Syringe) 25 ml Q15M PRN IV DECREASED GLUCOSE Last administered on 12/03/16 20:15; Admin Dose 25 ML; Start 11/19/16 at 17:30 Dextrose (D50w Syringe) 50 ml Q15M PRN IV DECREASED GLUCOSE; Start 11/19/16 at 17:30 Glucagon (Glucagen) 1 mg Q15M PRN IM DECREASED GLUCOSE; Start 11/19/16 at 17:30 Glucose (Glutose) 15 gm Q15M PRN BUCCAL DECREASED GLUCOSE; Start 11/19/16 at 17 :30 Atorvastatin Calcium (Lipitor) 10 mg HS NGT Last administered on 12/17/16 21:12 ; Admin Dose 10 MG; Start 11/24/16 at 21:00 Mupirocin (Bactroban) 1 applic BID TOP Last administered on 12/18/16 09:12; Admin Dose 1 APPLIC; Start 11/27/16 at 09:30 Insulin Glargine (Lantus) 20 unit DAILY@20 SC Last administered on 12/15/16 20: 30; Admin Dose 20 UNIT; Start 11/27/16 at 20:00 Folic Acid (Folic Acid) 1 mg DAILY NGT Last administered on 12/18/16 08:46; Admin Dose 1 MG; Start 11/29/16 at 10:00 Multivitamins (Multivitamin) 30 ml DAILY NGT Last administered on 12/18/16 08: 46; Admin Dose 30 ML; Start 11/29/16 at 10:30 Hydralazine HCl (Apresoline) 10 mg Q2 PRN IV For SBP >170 Last administered on 12/11/16 08:33; Admin Dose 10 MG; Start 12/04/16 at 00:00 IV Flush (NS 10 ml) 10 ml PRN PRN IV IV PROTOCOL Last administered on 12/09/16 20:42; Admin Dose 10 ML; Start 12/08/16 at 16:00 Diagnostic Test (Pha) (Accu-Chek) 1 ea 02 XX Last administered on 12/13/16 02: 00; Admin Dose 1 EA; Start 12/09/16 at 13:30 Aspirin (Aspirin) 81 mg DAILY PO Last administered on 12/18/16 08:46; Admin Dose 81 MG; Start 12/10/16 at 09:00 Quetiapine Fumarate (Seroquel) 25 mg Q4H PRN PO agitation Last administered on 12/12/16 22:09; Admin Dose 25 MG; Start 12/10/16 at 10:30 Lisinopril (Zestril) 20 mg BID PO Last administered on 12/17/16 08:56; Admin Dose 20 MG; Start 12/10/16 at 21:00 Haloperidol (Haldol) 0.5 mg Q4 PRN IV agitation Last administered on 12/15/16 23:13; Admin Dose 0.5 MG; Start 12/10/16 at 21:00 Pantoprazole (Protonix Tab) 40 mg DAILY@06 PO Last administered on 12/18/16 05 :53; Admin Dose 40 MG; Start 12/17/16 at 09:30 Quetiapine Fumarate (Seroquel) 50 mg BID PO ; Start 12/18/16 at 21:00; Status RODRIGO OMALLEY MD Dec 18, 2016 11:41
[2016-12-18 12:13] LABS: THYROID STIMULATING HORMONE 0.153 MIU/L (0.465-4.680)
--- NOTE | 2016-12-18 19:14 | PN ---
Date/Time of Note Date/Time of Note DATE: 12/18/16 TIME: 19:08 Assessment/Plan VTE Prophylaxis VTE Prophylaxis Intervention: other Lines/Catheters IV [facility]ter Type (from [facility] Peripheral IV Urinary Cath still in place: No Assessment/Plan Chief Complaint/Hosp Course ASSESSMENT AND PLAN: 1. Status post ST elevation myocardial infarction, status post cardiac arrest secondary to ventricular tachycardia secondary to above. 2. Status post percutaneous coronary intervention of left circumflex artery. 3. Renal failure. Appears to be acute on chronic. Currently has improved significantly. 4. Congestive heart failure. 5. Recurrence of sustained ventricular tachycardia. 6. Paroxysmal atrial fibrillation: currently remains in NSR. 7. Severe encephalopathy: NOW has significantly improved. . 8. Dyslipidemia. 9. Hypertension, 10. resp failure: extubated on 12/06/16 11. episodes of marked sinus bradycardia : r/o TAHMINA 12. s/p sustained VT weeks after his ME. RECOMMENDATIONS: We will continue with current cardiac care off of amiodarone due to bradycardia and monitor. ASA brilinta statin lisinopril qd code statues d/w pt extensively and he wants to be full code. NOW THAT PT's mental status has significantly improved, given his VT arrest and his sustained VT days after his ME, he meets the criteria for ICD placement. 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 . Problems: Subjective 24 Hr Interval Summary Free Text/Dictation d/w staff and rhythm was reviewed. he remains in NSR/ Sinus bradycardia. PT Denies any chest pain to me. but pt's confusion has significantly improved today. pt with intermittent asymptomatic sinus bradycardia. Objective: vascular: + necrosis of toes. Constitutional: awake no distress,, obese, Psych: calm and cooperative today Head: atraumatic, normocephalic Eyes: EOMI, nl conjunctiva Neck: non-tender. no strider Respiratory: no wheezes. Cardiovascular: regular rate and rhythm. systolic murmur. Gastrointestinal: non-tender, soft Extremities: Trace LE edema Neurological: awake. alert, OX3 Exam/Review of Systems Vital Signs Vitals Vital Signs Date Time Temp Pulse Resp B/P Pulse Ox O2 Delivery O2 Flow Rate FiO2 12/18/16 16:26 53 12/18/16 15:11 98.1 20 124/62 100 7/10/17 08:00 Nasal Cannula 2.0 12/18/16 01:46 21 Intake and Output 12/17/16 12/17/16 12/18/16 15:00 23:00 07:00 Intake Total 700 ml 960 ml Output Total 270 ml Balance 430 ml 960 ml Results Result Diagram: 12/15/16 0555 12/18/16 0700 Results 24 hrs Laboratory Tests Test 12/17/16 21:09 12/18/16 02:28 12/18/16 07:00 12/18/16 08:42 Bedside Glucose 80 130 143 Sodium Level 138 Potassium Level 4.0 Chloride Level 107 Carbon Dioxide Level 20 L Anion Gap 15 Blood Urea Nitrogen 25 H Creatinine 1.96 H Glucose Level 159 Calcium Level 9.7 Thyroid Stimulating Hormone (TSH) 0.153 L Free Thyroxine 1.87 H Test 12/18/16 12:25 12/18/16 17:37 Bedside Glucose 122 122 Medications Medications Current Medications Ticagrelor (Brilinta) 90 mg BID PO Last administered on 12/18/16 08:54; Admin Dose 90 MG; Start 11/19/16 at 21:00 Ondansetron HCl (Zofran Inj) 4 mg Q6H PRN IV NAUSEA AND/OR VOMITING; Start 04/27 at 17:00 Acetaminophen (Tylenol Liquid) 650 mg Q6H PRN PO PAIN LEVEL 1-3 OR FEVER Last administered on 12/10/16 03:59; Admin Dose 650 MG; Start 11/19/16 at 17:00 Acetaminophen (Tylenol Supp) 650 mg Q4H PRN [place] PAIN LEVEL 1-3 OR FEVER; Start 11/19/16 at 17:00 Docusate Sodium (Colace) 100 mg Q12H PRN PO CONSTIPATION; Start 11/19/16 at 17: 00 Magnesium Hydroxide (Milk Of Mag) 30 ml DAILY PRN PO CONSTIPATION Last administered on 11/29/16 09:23; Admin Dose 30 ML; Start 11/19/16 at 17:00 Bisacodyl (Dulcolax Supp) 10 mg DAILY PRN [place] CONSTIPATION Last administered on 11/29/16 09:23; Admin Dose 10 MG; Start 11/19/16 at 17:00 Miscellaneous Information 1 ea NOTE XX ; Start 11/19/16 at 17:30 Glucose (Glutose) 15 gm Q15M PRN PO DECREASED GLUCOSE; Start 11/19/16 at 17:30 Glucose (Glutose) 22.5 gm Q15M PRN PO DECREASED GLUCOSE; Start 11/19/16 at 17: 30 Dextrose (D50w Syringe) 25 ml Q15M PRN IV DECREASED GLUCOSE Last administered on 12/03/16 20:15; Admin Dose 25 ML; Start 11/19/16 at 17:30 Dextrose (D50w Syringe) 50 ml Q15M PRN IV DECREASED GLUCOSE; Start 11/19/16 at 17:30 Glucagon (Glucagen) 1 mg Q15M PRN IM DECREASED GLUCOSE; Start 11/19/16 at 17:30 Glucose (Glutose) 15 gm Q15M PRN BUCCAL DECREASED GLUCOSE; Start 11/19/16 at 17 :30 Atorvastatin Calcium (Lipitor) 10 mg HS NGT Last administered on 12/17/16 21:12 ; Admin Dose 10 MG; Start 11/24/16 at 21:00 Mupirocin (Bactroban) 1 applic BID TOP Last administered on 12/18/16 09:12; Admin Dose 1 APPLIC; Start 11/27/16 at 09:30 Insulin Glargine (Lantus) 20 unit DAILY@20 SC Last administered on 12/15/16 20: 30; Admin Dose 20 UNIT; Start 11/27/16 at 20:00 Folic Acid (Folic Acid) 1 mg DAILY NGT Last administered on 12/18/16 08:46; Admin Dose 1 MG; Start 11/29/16 at 10:00 Multivitamins (Multivitamin) 30 ml DAILY NGT Last administered on 12/18/16 08: 46; Admin Dose 30 ML; Start 11/29/16 at 10:30 Hydralazine HCl (Apresoline) 10 mg Q2 PRN IV For SBP >170 Last administered on 12/11/16 08:33; Admin Dose 10 MG; Start 12/04/16 at 00:00 IV Flush (NS 10 ml) 10 ml PRN PRN IV IV PROTOCOL Last administered on 12/09/16 20:42; Admin Dose 10 ML; Start 12/08/16 at 16:00 Diagnostic Test (Pha) (Accu-Chek) 1 ea 02 XX Last administered on 12/13/16 02: 00; Admin Dose 1 EA; Start 12/09/16 at 13:30 Aspirin (Aspirin) 81 mg DAILY PO Last administered on 12/18/16 08:46; Admin Dose 81 MG; Start 12/10/16 at 09:00 Quetiapine Fumarate (Seroquel) 25 mg Q4H PRN PO agitation Last administered on 12/12/16 22:09; Admin Dose 25 MG; Start 12/10/16 at 10:30 Lisinopril (Zestril) 20 mg BID PO Last administered on 12/17/16 08:56; Admin Dose 20 MG; Start 12/10/16 at 21:00 Haloperidol (Haldol) 0.5 mg Q4 PRN IV agitation Last administered on 12/15/16 23:13; Admin Dose 0.5 MG; Start 12/10/16 at 21:00 Pantoprazole (Protonix Tab) 40 mg DAILY@06 PO Last administered on 12/18/16 05 :53; Admin Dose 40 MG; Start 12/17/16 at 09:30 Quetiapine Fumarate (Seroquel) 50 mg BID PO ; Start 12/18/16 at 21:00 SERENA ALCARAZ MD Dec 18, 2016 19:13
[2016-12-18] MEDS: INSULIN GLARGINE [LANtus] 3 ML PEN SC SCH (20:00)
[2016-12-18] MEDS: ATORVASTATIN 10 MG TAB NGT SCH (21:22)
[2016-12-19] VITALS (13 sets, daily range): BP systolic 100–138; BP diastolic 59–83; PULSE 40–66; RESP 16–19
[2016-12-19] MEDS: IPRATROPIUM (NEB) 0.5 MG/2.5 ML AMP HHN SCH ×4 (02:00→19:51)
[2016-12-19] MEDS: ACCUCHECK 2 AM XX SCH (02:00)
[2016-12-19] MEDS: LEVALBUTEROL (NEB) 0.63 MG/3 ML AMP HHN SCH ×4 (02:00→19:51)
[2016-12-19] MEDS: PANTOPRAZOLE (EC) 40 MG TAB PO SCH (06:45)
[2016-12-19] MEDS: Insulin NOVOLOG SS MODERATE Algorithm (SS with meals and bedtime) SC SCH ×4 (07:55→21:00)
[2016-12-19] MEDS: FOLIC ACID 1 MG TAB NGT SCH (08:36)
[2016-12-19] MEDS: ASPIRIN 81 MG TAB PO SCH (08:36)
[2016-12-19] MEDS: QUETIAPINE 25 MG TAB PO SCH (08:36)
[2016-12-19] MEDS: MUPIROCIN 2% 22 GM OINT TOP SCH ×2 (08:37→21:38)
[2016-12-19] MEDS: LISINOPRIL 20 MG TAB PO SCH (08:37)
[2016-12-19] MEDS: MULTIVITAMINS 30 ML CUP NGT SCH (08:37)
[2016-12-19] MEDS: TICAGRELOR 90 MG TABLET PO SCH ×2 (08:52→21:49)
[2016-12-19] MEDS: QUETIAPINE 25 MG TAB PO PRN (14:18)
--- NOTE | 2016-12-19 14:21 | PN ---
Date/Time of Note Date/Time of Note DATE: 12/19/16 TIME: 14:19 Assessment/Plan VTE Prophylaxis VTE Prophylaxis Intervention: SCD's Lines/Catheters IV Catheter Type (from Nrsg): Peripheral IV Central line still needed: No Urinary Cath still in place: No Assessment/Plan Assessment/Plan 1. cards: s/p stemi and stent to LCX (b) ischemic cardiomyopathy (c) [paroxysmal a fib (d) episodes of bradycardia and pauses, await casrds opinion, amio d/c (e) ?ICD, unclear if patietn will consent to this 2. 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 toxic metabolic encephalopathy with variable emotional lability, con tot manage with seroquel Subjective 24 Hr Interval Summary Free Text/Dictation no new complaints, much more agitated at this time Exam/Review of Systems Vital Signs Vitals Vital Signs Date Time Temp Pulse Resp B/P Pulse Ox O2 Delivery O2 Flow Rate FiO2 12/19/16 12:13 97.6 56 16 112/59 100 12/19/16 08:05 Nasal Cannula 2.0 12/18/16 19:32 21 Intake and Output 12/18/16 12/18/16 12/19/16 15:00 23:00 07:00 Intake Total 445 ml Balance 445 ml Exam agitated, refused exam Results Result Diagram: 12/15/16 0555 12/18/16 0700 Results 24 hrs Laboratory Tests Test 12/18/16 17:37 12/18/16 21:08 12/19/16 08:34 12/19/16 11:18 Bedside Glucose 122 120 97 169 Test 12/19/16 12:32 Bedside Glucose 157 Medications Medications Current Medications Ticagrelor (Brilinta) 90 mg BID PO Last administered on 12/19/16 08:52; Admin Dose 90 MG; Start 11/19/16 at 21:00 Ondansetron HCl (Zofran Inj) 4 mg Q6H PRN IV NAUSEA AND/OR VOMITING; Start 04/27 at 17:00 Acetaminophen (Tylenol Liquid) 650 mg Q6H PRN PO PAIN LEVEL 1-3 OR FEVER Last administered on 12/10/16 03:59; Admin Dose 650 MG; Start 11/19/16 at 17:00 Acetaminophen (Tylenol Supp) 650 mg Q4H PRN [place] PAIN LEVEL 1-3 OR FEVER; Start 11/19/16 at 17:00 Docusate Sodium (Colace) 100 mg Q12H PRN PO CONSTIPATION; Start 11/19/16 at 17: 00 Magnesium Hydroxide (Milk Of Mag) 30 ml DAILY PRN PO CONSTIPATION Last administered on 11/29/16 09:23; Admin Dose 30 ML; Start 11/19/16 at 17:00 Bisacodyl (Dulcolax Supp) 10 mg DAILY PRN [place] CONSTIPATION Last administered on 11/29/16 09:23; Admin Dose 10 MG; Start 11/19/16 at 17:00 Miscellaneous Information 1 ea NOTE XX ; Start 11/19/16 at 17:30 Glucose (Glutose) 15 gm Q15M PRN PO DECREASED GLUCOSE; Start 11/19/16 at 17:30 Glucose (Glutose) 22.5 gm Q15M PRN PO DECREASED GLUCOSE; Start 11/19/16 at 17: 30 Dextrose (D50w Syringe) 25 ml Q15M PRN IV DECREASED GLUCOSE Last administered on 12/03/16 20:15; Admin Dose 25 ML; Start 11/19/16 at 17:30 Dextrose (D50w Syringe) 50 ml Q15M PRN IV DECREASED GLUCOSE; Start 11/19/16 at 17:30 Glucagon (Glucagen) 1 mg Q15M PRN IM DECREASED GLUCOSE; Start 11/19/16 at 17:30 Glucose (Glutose) 15 gm Q15M PRN BUCCAL DECREASED GLUCOSE; Start 11/19/16 at 17 :30 Atorvastatin Calcium (Lipitor) 10 mg HS NGT Last administered on 12/18/16 21: 22; Admin Dose 10 MG; Start 11/24/16 at 21:00 Mupirocin (Bactroban) 1 applic BID TOP Last administered on 12/19/16 08:37; Admin Dose 1 APPLIC; Start 11/27/16 at 09:30 Insulin Glargine (Lantus) 20 unit DAILY@20 SC Last administered on 12/15/16 20: 30; Admin Dose 20 UNIT; Start 11/27/16 at 20:00 Folic Acid (Folic Acid) 1 mg DAILY NGT Last administered on 12/19/16 08:36; Admin Dose 1 MG; Start 11/29/16 at 10:00 Multivitamins (Multivitamin) 30 ml DAILY NGT Last administered on 12/19/16 08: 37; Admin Dose 30 ML; Start 11/29/16 at 10:30 Hydralazine HCl (Apresoline) 10 mg Q2 PRN IV For SBP >170 Last administered on 12/11/16 08:33; Admin Dose 10 MG; Start 12/04/16 at 00:00 IV Flush (NS 10 ml) 10 ml PRN PRN IV IV PROTOCOL Last administered on 12/09/16 20:42; Admin Dose 10 ML; Start 12/08/16 at 16:00 Diagnostic Test (Pha) (Accu-Chek) 1 ea 02 XX Last administered on 12/13/16 02: 00; Admin Dose 1 EA; Start 12/09/16 at 13:30 Aspirin (Aspirin) 81 mg DAILY PO Last administered on 12/19/16 08:36; Admin Dose 81 MG; Start 12/10/16 at 09:00 Quetiapine Fumarate (Seroquel) 25 mg Q4H PRN PO agitation Last administered on 12/19/16 14:18; Admin Dose 25 MG; Start 12/10/16 at 10:30 Lisinopril (Zestril) 20 mg BID PO Last administered on 12/19/16 08:37; Admin Dose 20 MG; Start 12/10/16 at 21:00 Pantoprazole (Protonix Tab) 40 mg DAILY@06 PO Last administered on 12/19/16 06 :45; Admin Dose 40 MG; Start 12/17/16 at 09:30 Quetiapine Fumarate (Seroquel) 50 mg BID PO Last administered on 12/19/16 08: 36; Admin Dose 50 MG; Start 12/18/16 at 21:00 RODRIGO HENLEY MD Dec 19, 2016 14:21
--- NOTE | 2016-12-19 14:50 | PN ---
Date/Time of Note Date/Time of Note DATE: 12/19/16 TIME: 14:46 Assessment/Plan VTE Prophylaxis VTE Prophylaxis Intervention: other Lines/Catheters [facility] Type [facility]from [facility] Peripheral IV Urinary Cath still in place: No Assessment/Plan Chief Complaint/Hosp Course ASSESSMENT AND PLAN: 1. Status post ST elevation myocardial infarction, status post cardiac arrest secondary to ventricular tachycardia secondary to above. 2. Status post percutaneous coronary intervention of left circumflex artery. 3. Renal failure. 4. Congestive heart failure. 5. Recurrence of sustained ventricular tachycardia. 6. Paroxysmal atrial fibrillation: currently remains in NSR. 7. Severe encephalopathy: and intermittently hallucinating now and agitated now 8. Dyslipidemia. 9. Hypertension, 10. resp failure: extubated on 12/06/16 11. episodes of marked sinus bradycardia : r/o TAHMINA 12. s/p sustained VT weeks after his NH. RECOMMENDATIONS: We will continue with current cardiac care off of amiodarone due to bradycardia and monitor. ASA brilinta statin lisinopril qd cwill schedule for the ICD prior to discharge once / if mental statues improve. at this point he is too agitated to be consentable. consider neuro evaluation. check labs in AM and start IV fluid . Problems: Subjective 24 Hr Interval Summary Free Text/Dictation Free Text/Dictation d/w staff and rhythm was reviewed. d/w Dr Wade he remains in NSR/ Sinus bradycardia. with episodes of marked sinus bradycardia during sleep. PT Denies any chest pain to me. pt has become more confused and agitated this afternoon and acusing staff of beating him Objective: vascular: + necrosis of toes. Constitutional: awake no distress,, obese, Psych: agitated and hallucinating. Head: atraumatic, normocephalic Eyes: EOMI, nl conjunctiva Neck: non-tender. no strider Respiratory: no wheezes. Cardiovascular: regular rate and rhythm. systolic murmur. Gastrointestinal: non-tender, soft Extremities: Trace LE edema Neurological: awake. alert, OX3 Exam/Review of Systems Vital Signs Vitals Vital Signs Date Time Temp Pulse Resp B/P Pulse Ox O2 Delivery O2 Flow Rate FiO2 12/19/16 12:13 97.6 56 16 112/59 100 12/19/16 08:05 Nasal Cannula 2.0 12/18/16 19:32 21 Intake and Output 12/18/16 12/18/16 12/19/16 15:00 23:00 07:00 Intake Total 445 ml Balance 445 ml Results Result Diagram: 12/15/16 0555 12/18/16 0700 Results 24 hrs Laboratory Tests Test 12/18/16 17:37 12/18/16 21:08 12/19/16 08:34 12/19/16 11:18 Bedside Glucose 122 120 97 169 Test 12/19/16 12:32 Bedside Glucose 157 Medications Medications Current Medications Ticagrelor (Brilinta) 90 mg BID PO Last administered on 12/19/16 08:52; Admin Dose 90 MG; Start 11/19/16 at 21:00 Ondansetron HCl (Zofran Inj) 4 mg Q6H PRN IV NAUSEA AND/OR VOMITING; Start 04/27 at 17:00 Acetaminophen (Tylenol Liquid) 650 mg Q6H PRN PO PAIN LEVEL 1-3 OR FEVER Last administered on 12/10/16 03:59; Admin Dose 650 MG; Start 11/19/16 at 17:00 Acetaminophen (Tylenol Supp) 650 mg Q4H PRN [place] PAIN LEVEL 1-3 OR FEVER; Start 11/19/16 at 17:00 Docusate Sodium (Colace) 100 mg Q12H PRN PO CONSTIPATION; Start 11/19/16 at 17: 00 Magnesium Hydroxide (Milk Of Mag) 30 ml DAILY PRN PO CONSTIPATION Last administered on 11/29/16 09:23; Admin Dose 30 ML; Start 11/19/16 at 17:00 Bisacodyl (Dulcolax Supp) 10 mg DAILY PRN [place] CONSTIPATION Last administered on 11/29/16 09:23; Admin Dose 10 MG; Start 11/19/16 at 17:00 Miscellaneous Information 1 ea NOTE XX ; Start 11/19/16 at 17:30 Glucose (Glutose) 15 gm Q15M PRN PO DECREASED GLUCOSE; Start 11/19/16 at 17:30 Glucose (Glutose) 22.5 gm Q15M PRN PO DECREASED GLUCOSE; Start 11/19/16 at 17: 30 Dextrose (D50w Syringe) 25 ml Q15M PRN IV DECREASED GLUCOSE Last administered on 12/03/16 20:15; Admin Dose 25 ML; Start 11/19/16 at 17:30 Dextrose (D50w Syringe) 50 ml Q15M PRN IV DECREASED GLUCOSE; Start 11/19/16 at 17:30 Glucagon (Glucagen) 1 mg Q15M PRN IM DECREASED GLUCOSE; Start 11/19/16 at 17:30 Glucose (Glutose) 15 gm Q15M PRN BUCCAL DECREASED GLUCOSE; Start 11/19/16 at 17 :30 Atorvastatin Calcium (Lipitor) 10 mg HS NGT Last administered on 12/18/16 21: 22; Admin Dose 10 MG; Start 11/24/16 at 21:00 Mupirocin (Bactroban) 1 applic BID TOP Last administered on 12/19/16 08:37; Admin Dose 1 APPLIC; Start 11/27/16 at 09:30 Insulin Glargine (Lantus) 20 unit DAILY@20 SC Last administered on 12/15/16 20: 30; Admin Dose 20 UNIT; Start 11/27/16 at 20:00 Folic Acid (Folic Acid) 1 mg DAILY NGT Last administered on 12/19/16 08:36; Admin Dose 1 MG; Start 11/29/16 at 10:00 Multivitamins (Multivitamin) 30 ml DAILY NGT Last administered on 12/19/16 08: 37; Admin Dose 30 ML; Start 11/29/16 at 10:30 Hydralazine HCl (Apresoline) 10 mg Q2 PRN IV For SBP >170 Last administered on 12/11/16 08:33; Admin Dose 10 MG; Start 12/04/16 at 00:00 IV Flush (NS 10 ml) 10 ml PRN PRN IV IV PROTOCOL Last administered on 12/09/16 20:42; Admin Dose 10 ML; Start 12/08/16 at 16:00 Diagnostic Test (Pha) (Accu-Chek) 1 ea 02 XX Last administered on 12/13/16 02: 00; Admin Dose 1 EA; Start 12/09/16 at 13:30 Aspirin (Aspirin) 81 mg DAILY PO Last administered on 12/19/16 08:36; Admin Dose 81 MG; Start 12/10/16 at 09:00 Quetiapine Fumarate (Seroquel) 25 mg Q4H PRN PO agitation Last administered on 12/19/16 14:18; Admin Dose 25 MG; Start 12/10/16 at 10:30 Pantoprazole (Protonix Tab) 40 mg DAILY@06 PO Last administered on 12/19/16 06 :45; Admin Dose 40 MG; Start 12/17/16 at 09:30 Quetiapine Fumarate (Seroquel) 50 mg BID PO Last administered on 12/19/16 08: 36; Admin Dose 50 MG; Start 12/18/16 at 21:00 Lisinopril (Zestril) 20 mg DAILY PO ; Start 12/20/16 at 09:00 SERENA ALCARAZ MD Dec 19, 2016 14:49
[2016-12-19] MEDS ORDERED: SOD CHLORIDE 0.9% 1,000 ML IV SCH (15:00)
--- NOTE | 2016-12-19 17:20 | RADRPT ---
Vent Rate: 60 bpm RR Interval: 0 msec TN Interval: 172 msec QRS Duration: 110 msec QT Interval: 472 msec QTC Interval: 472 msec P-R-T Pelsor: 46 - 29 - 77 degrees Normal sinus rhythm Incomplete right bundle branch block Septal infarct , age undetermined Abnormal ECG Electronically Signed By: Yobany Lima [id number]
--- NOTE | 2016-12-19 20:39 | RADRPT ---
PROCEDURE: XR Chest. CLINICAL INDICATION: Congestive heart failure. TECHNIQUE: Chest x-ray, single view. COMPARISON: 12/10/2016. FINDINGS: The cardiac silhouette is magnified and unchanged in size and configuration. Aortic arch atheroscle rotic calcification is present. Pulmonary vascular congestion has decreased. Low lung volumes are observed. Slight improvement in basilar atelectatic changes is observed. The visualized upper abdo men is unremarkable. The right upper extremity PICC has been removed. IMPRESSION: Low lung volumes with mild improvement in basilar atelectatic changes. Decreased pulmonary vascular congestion. RPTAT: HLST .Susanne Kohler MD, MD Date Time Electronically viewed and signed by .Susanne Kohler MD, MD on 12/19/2016 20:39 .T/
[2016-12-19] MEDS: QUETIAPINE 100 MG TAB PO SCH (21:38)
[2016-12-19] MEDS: ATORVASTATIN 10 MG TAB NGT SCH (21:38)
[2016-12-19] MEDS: DIVALPROEX (EC) 250 MG TAB PO SCH (21:39)
[2016-12-19] MEDS: INSULIN GLARGINE [LANtus] 3 ML PEN SC SCH (21:48)
[2016-12-20] VITALS (14 sets, daily range): BP systolic 107–140; BP diastolic 62–91; PULSE 20–66; RESP 19
[2016-12-20] MEDS: IPRATROPIUM (NEB) 0.5 MG/2.5 ML AMP HHN SCH ×4 (02:00→20:00)
[2016-12-20] MEDS: LEVALBUTEROL (NEB) 0.63 MG/3 ML AMP HHN SCH ×4 (02:00→20:00)
[2016-12-20] MEDS: ACCUCHECK 2 AM XX SCH (02:00)
[2016-12-20] MEDS: PANTOPRAZOLE (EC) 40 MG TAB PO SCH (06:45)
[2016-12-20 07:28] LABS: ADD SCAN DIFF NO
[2016-12-20 07:32] LABS: BASOPHIL # 0.1 10^3/ul (0.0-0.1); BASOPHILS % 1.2 % (0.0-2.0); EOSINOPHILS # 0.9 10^3/ul (0.0-0.5); EOSINOPHILS % 10.8 % (0.0-7.0); HEMATOCRIT 34.3 % (42.0-52.0); HEMOGLOBIN 11.2 g/dl (14.0-18.0); LYMPHOCYTES % 23.1 % (15.0-51.0); MEAN CORPUSCULAR HEMOGLOBIN 30.4 pg (29.0-33.0); MEAN CORPUSCULAR HGB CONC 32.7 g/dl (32.0-37.0); MEAN PLATELET VOLUME 11.4 fl (7.4-10.4); MONOCYTE # 0.8 10^3/ul (0.3-0.9); MONOCYTES % 9.2 % (0.0-11.0); NEUTROPHIL # 4.6 10^3/ul (1.6-7.5); PLATELET COUNT 222 10^3/UL (140-415); RED BLOOD COUNT 3.69 10^6/ul (4.70-6.10); RED CELL DISTRIBUTION WIDTH 16.1 % (11.5-14.5); WHITE BLOOD COUNT 8.4 10^3/ul (4.8-10.8)
[2016-12-20 07:45] LABS: INR 1.12; PROTIME 14.4 Sec (12.2-14.2); PT RATIO 1.1
[2016-12-20 07:53] LABS: ALBUMIN 3.9 g/dl (3.3-4.9); ALBUMIN/GLOBULIN RATIO 1.21; BILIRUBIN,INDIRECT 0.4 mg/dl (0-1.1); BILIRUBIN,TOTAL 0.4 mg/dl (0.2-1.3); CALCIUM 10.4 mg/dl (8.4-10.2); CREATININE 1.73 mg/dl (0.61-1.24); MAGNESIUM 1.9 mg/dl (1.7-2.5); POTASSIUM 3.9 mmol/L (3.5-5.1); TOTAL PROTEIN 7.1 g/dl (6.1-8.1)
[2016-12-20] MEDS: Insulin NOVOLOG SS MODERATE Algorithm (SS with meals and bedtime) SC SCH ×4 (07:55→20:58)
[2016-12-20] MEDS: DIVALPROEX (EC) 250 MG TAB PO SCH ×2 (08:30→20:55)
[2016-12-20] MEDS: FOLIC ACID 1 MG TAB NGT SCH (08:30)
[2016-12-20] MEDS: ASPIRIN 81 MG TAB PO SCH (08:33)
[2016-12-20] MEDS: QUETIAPINE 100 MG TAB PO SCH ×2 (08:33→20:55)
[2016-12-20] MEDS: MUPIROCIN 2% 22 GM OINT TOP SCH ×2 (08:34→20:59)
[2016-12-20] MEDS: LISINOPRIL 20 MG TAB PO SCH (08:34)
[2016-12-20] MEDS: MULTIVITAMINS 30 ML CUP NGT SCH (08:37)
[2016-12-20] MEDS: TICAGRELOR 90 MG TABLET PO SCH (08:47)
--- NOTE | 2016-12-20 09:10 | PN ---
Date/Time of Note Date/Time of Note DATE: 12/20/16 TIME: 09:06 Assessment/Plan VTE Prophylaxis VTE Prophylaxis Intervention: other Lines/Catheters IV C[facility]ter Type (from [facility] [place] Urinary Cath still in place: No Assessment/Plan Chief Complaint/Hosp Course ASSESSMENT AND PLAN: 1. Status post ST elevation myocardial infarction, status post cardiac arrest secondary to ventricular tachycardia secondary to above. 2. Status post percutaneous coronary intervention of left circumflex artery. 3. Renal failure. 4. Congestive heart failure. 5. Recurrence of sustained ventricular tachycardia. 6. Paroxysmal atrial fibrillation: currently remains in NSR. 7. Severe encephalopathy: and intermittently hallucinating now and agitated now 8. Dyslipidemia. 9. Hypertension, 10. resp failure: extubated on 12/06/16 11. episodes of marked sinus bradycardia : r/o TAHMINA 12. s/p sustained VT weeks after his [place]. 13. sick sinus syndrome with episodes of marked sinus bradycardia down to HR 25 : unable to start betablocker until has a PPM/ ICD. RECOMMENDATIONS: We will continue with current cardiac care off of amiodarone due to bradycardia and monitor. ASA will dc brilinta due to bradycardia and start plavix instead. cont statin lisinopril qd only given his renal failure I have scheduled pt for the ICD PLACEMENT AND DFT TESTING on sunday 7 AM NOW that neurologically he has improved. R/B/A D/W PT in detail and consent was obtained. will start coreg once ICD is in place. . Problems: Subjective 24 Hr Interval Summary Free Text/Dictation d/w staff and rhythm was reviewed. he remains in NSR/ Sinus bradycardia. pt with episodes of marked sinus bradycardia down to HR 25 overnight during sleep. PT Denies any chest pain to me. but pt's confusion has significantly improved today again and asks appropriate questions. Objective: vascular: + necrosis of toes. Constitutional: awake no distress,, obese, Psych: calm and cooperative today Head: atraumatic, normocephalic Eyes: EOMI, nl conjunctiva Neck: non-tender. no strider Respiratory: no wheezes. Cardiovascular: regular rate and rhythm. systolic murmur. Gastrointestinal: non-tender, soft Extremities: Trace LE edema Neurological: awake. alert, OX3 Exam/Review of Systems Vital Signs Vitals Vital Signs Date Time Temp Pulse Resp B/P Pulse Ox O2 Delivery O2 Flow Rate FiO2 7/12/17 08:07 57 12/20/16 08:05 98.1 19 140/84 98 12/20/16 07:49 21 12/19/16 08:05 Nasal Cannula 2.0 Intake and Output 12/19/16 12/19/16 12/20/16 15:00 23:00 07:00 Intake Total 225 ml Balance 225 ml Results Result Diagram: 12/20/16 0712 12/20/16 0712 Results 24 hrs Laboratory Tests Test 12/19/16 11:18 12/19/16 12:32 12/19/16 18:12 12/19/16 21:30 Bedside Glucose 169 157 89 93 Test 12/20/16 07:12 12/20/16 07:45 White Blood Count 8.4 Red Blood Count 3.69 L Hemoglobin 11.2 L Hematocrit 34.3 L Mean Corpuscular Volume 93.0 Mean Corpuscular Hemoglobin 30.4 Mean Corpuscular Hemoglobin Concent 32.7 Red Cell Distribution Width 16.1 H Platelet Count 222 Mean Platelet Volume 11.4 H Neutrophils % 55.0 Lymphocytes % 23.1 Monocytes % 9.2 Eosinophils % 10.8 H Basophils % 1.2 Nucleated Red Blood Cells % 0.0 Neutrophils # 4.6 Lymphocytes # 2.0 Monocytes # 0.8 Eosinophils # 0.9 H Basophils # 0.1 Nucleated Red Blood Cells # 0.0 Prothrombin Time 14.4 H Prothrombin Time Ratio 1.1 INR International Normalized Ratio 1.12 Sodium Level 133 L Potassium Level 3.9 Chloride Level 105 Carbon Dioxide Level 24 Anion Gap 8 Blood Urea Nitrogen 21 H Creatinine 1.73 H Glucose Level 70 Calcium Level 10.4 H Magnesium Level 1.9 Total Bilirubin 0.4 Direct Bilirubin 0.00 Indirect Bilirubin 0.4 Aspartate Amino Transf (AST/SGOT) 21 Alanine Aminotransferase (ALT/SGPT) 25 Alkaline Phosphatase 98 B-Type Natriuretic Peptide 1700 H Total Protein 7.1 Albumin 3.9 Globulin 3.20 Albumin/Globulin Ratio 1.21 Bedside Glucose 73 Medications Medications Current Medications Ticagrelor (Brilinta) 90 mg BID PO Last administered on 12/20/16t 08:47; Admin Dose 90 MG; Start 11/19/16 at 21:00 Ondansetron HCl (Zofran Inj) 4 mg Q6H PRN IV NAUSEA AND/OR VOMITING; Start 04/27 at 17:00 Acetaminophen (Tylenol Liquid) 650 mg Q6H PRN PO PAIN LEVEL 1-3 OR FEVER Last administered on 12/10/16 03:59; Admin Dose 650 MG; Start 11/19/16 at 17:00 Acetaminophen (Tylenol Supp) [address] PAIN LEVEL 1-3 OR FEVER; Start 11/19/16 at 17:00 Docusate Sodium (Colace) 100 mg Q12H PRN PO CONSTIPATION; Start 11/19/16 at 17: 00 Magnesium Hydroxide (Milk Of Mag) 30 ml DAILY PRN PO CONSTIPATION Last administered on 11/29/16 09:23; Admin Dose 30 ML; Start 11/19/16 at 17:00 Bisacodyl (Dulcolax Supp) [address] CONSTIPATION Last administered on 11/29/16 09:23; Admin Dose 10 MG; Start 11/19/16 at 17:00 Miscellaneous Information 1 ea NOTE XX ; Start 11/19/16 at 17:30 Glucose (Glutose) 15 gm Q15M PRN PO DECREASED GLUCOSE; Start 11/19/16 at 17:30 Glucose (Glutose) 22.5 gm Q15M PRN PO DECREASED GLUCOSE; Start 11/19/16 at 17: 30 Dextrose (D50w Syringe) 25 ml Q15M PRN IV DECREASED GLUCOSE Last administered on 12/03/16 20:15; Admin Dose 25 ML; Start 11/19/16 at 17:30 Dextrose (D50w Syringe) 50 ml Q15M PRN IV DECREASED GLUCOSE; Start 11/19/16 at 17:30 Glucagon (Glucagen) 1 mg Q15M PRN IM DECREASED GLUCOSE; Start 11/19/16 at 17:30 Glucose (Glutose) 15 gm Q15M PRN BUCCAL DECREASED GLUCOSE; Start 11/19/16 at 17 :30 Atorvastatin Calcium (Lipitor) 10 mg HS NGT Last administered on 12/19/16 21: 38; Admin Dose 10 MG; Start 11/24/16 at 21:00 Mupirocin (Bactroban) 1 applic BID TOP Last administered on 12/20/16 08:34; Admin Dose 1 APPLIC; Start 11/27/16 at 09:30 Insulin Glargine (Lantus) 20 unit DAILY@20 SC Last administered on 12/19/16 21 :48; Admin Dose 20 UNIT; Start 11/27/16 at 20:00 Folic Acid (Folic Acid) 1 mg DAILY NGT Last administered on 12/20/16 08:30; Admin Dose 1 MG; Start 11/29/16 at 10:00 Multivitamins (Multivitamin) 30 ml DAILY NGT Last administered on 12/20/16 08: 37; Admin Dose 30 ML; Start 11/29/16 at 10:30 Hydralazine HCl (Apresoline) 10 mg Q2 PRN IV For SBP >170 Last administered on 12/11/16 08:33; Admin Dose 10 MG; Start 12/04/16 at 00:00 IV Flush (NS 10 ml) 10 ml PRN PRN IV IV PROTOCOL Last administered on 12/09/16 20:42; Admin Dose 10 ML; Start 12/08/16 at 16:00 Diagnostic Test (Pha) (Accu-Chek) 1 ea 02 XX Last administered on 12/13/16 02: 00; Admin Dose 1 EA; Start 12/09/16 at 13:30 Aspirin (Aspirin) 81 mg DAILY PO Last administered on 12/20/16 08:33; Admin Dose 81 MG; Start 12/10/16 at 09:00 Quetiapine Fumarate (Seroquel) 25 mg Q4H PRN PO agitation Last administered on 12/19/16 14:18; Admin Dose 25 MG; Start 12/10/16 at 10:30 Pantoprazole (Protonix Tab) 40 mg DAILY@06 PO Last administered on 12/20/16 06 :45; Admin Dose 40 MG; Start 12/17/16 at 09:30 Lisinopril (Zestril) 20 mg DAILY PO Last administered on 12/20/16 08:34; Admin Dose 20 MG; Start 12/20/16 at 09:00 Quetiapine Fumarate (Seroquel) 100 mg BID PO Last administered on 12/20/16 08: 33; Admin Dose 100 MG; Start 12/19/16 at 21:00 Divalproex Sodium (Depakote) 250 mg BID PO Last administered on 12/20/16 08:30 ; Admin Dose 250 MG; Start 12/19/16 at 21:00 SERENA ALCARAZ MD 12, 2017 09:10
[2016-12-20] MEDS: CLOPIDOGREL 75 MG TAB PO SCH (10:31)
[2016-12-20] MEDS: QUETIAPINE 25 MG TAB PO PRN (13:07)
--- NOTE | 2016-12-20 14:47 | PN ---
Date/Time of Note Date/Time of Note DATE: 12/20/16 TIME: 14:24 Assessment/Plan VTE Prophylaxis VTE Prophylaxis Intervention: SCD's Lines/Catheters IV [facility]from [facility] Saline Lock Urinary Cath still in place: No Assessment/Plan Assessment/Plan 56 year old male with multiple medical problems: 1. Paranoia/Biploar disorder: seems to be better controlled with Depakote and Seroquel scheduled, also has Haldol prn . Also hx of polysubstance abuse 2. CAD, s/p STEMI and cardiac arrest; continue current meds more stable now 3. Ischemic Cardiomyopathy with and now with s/p episode of sustained VT and also SSS/A fib with episodes or marked bradycardia, appreciates recs form Dr Dc and patient to have ICD/PPM placed on Sunday 4. Acute Kidney Injury: improving currenlty Tolerating po and OFF IVF Continue to monitor. 5. Diabetes mellitus. His blood sugars are fairly stable. A1c 7.1 Continue sliding scale insulin and Lantus to 20 units, continue SSI and will start premeal insulin once taking better po 6. Hypertension: continue current meds 7. Hyperlipidemia: continue statins 8. Obstructive sleep apnea on CPAP at night as outpatient. Monitor here as may need it 9. Tobacco use. Hopefully the patient will quit after this. Nicotine patch. Prophylaxis: Protonix for GI ppx and SCDs for DVT ppx. Dispo: ICD/PPM Sunday then will need placement. Subjective 24 Hr Interval Summary Free Text/Dictation Patient clinically better and awaiting ICD placement Back to baseline mentally ... Max assistance and sitter at bedside Exam/Review of Systems Vital Signs Vitals Vital Signs Date Time Temp Pulse Resp B/P Pulse Ox O2 Delivery O2 Flow Rate FiO2 12/20/16 13:39 60 20 95 21 12/20/16 11:02 98.1 107/79 12/19/16 08:05 Nasal Cannula 2.0 Intake and Output 12/19/16 12/19/16 12/20/16 15:00 23:00 07:00 Intake Total 225 ml Balance 225 ml Exam Constitutional: alert, oriented (x2), well developed Psych: confusion (and paranoia ) Respiratory: clear to auscultation, normal air movement Cardiovascular: other (bradycardic ), regular rate and rhythm Gastrointestinal: non-tender, soft Extremities: normal pulses, other (no edema, clubbing but partially necrosis of tip of his toes ) Neurological: PIPE CHANGER II-XII intact, nl mental status, nl speech, other ( generalised weakness and max asistance ) Results Result Diagram: 12/20/1612 12/20/16 0712 Results 24 hrs Laboratory Tests Test 12/19/16 18:12 12/19/16 21:30 12/20/16 07:12 12/20/16 07:45 Bedside Glucose 89 93 73 White Blood Count 8.4 Red Blood Count 3.69 L Hemoglobin 11.2 L Hematocrit 34.3 L Mean Corpuscular Volume 93.0 Mean Corpuscular Hemoglobin 30.4 Mean Corpuscular Hemoglobin Concent 32.7 Red Cell Distribution Width 16.1 H Platelet Count 222 Mean Platelet Volume 11.4 H Neutrophils % 55.0 Lymphocytes % 23.1 Monocytes % 9.2 Eosinophils % 10.8 H Basophils % 1.2 Nucleated Red Blood Cells % 0.0 Neutrophils # 4.6 Lymphocytes # 2.0 Monocytes # 0.8 Eosinophils # 0.9 H Basophils # 0.1 Nucleated Red Blood Cells # 0.0 Prothrombin Time 14.4 H Prothrombin Time Ratio 1.1 INR International Normalized Ratio 1.12 Sodium Level 133 L Potassium Level 3.9 Chloride Level 105 Carbon Dioxide Level 24 Anion Gap 8 Blood Urea Nitrogen 21 H Creatinine 1.73 H Glucose Level 70 Calcium Level 10.4 H Magnesium Level 1.9 Total Bilirubin 0.4 Direct Bilirubin 0.00 Indirect Bilirubin 0.4 Aspartate Amino Transf (AST/SGOT) 21 Alanine Aminotransferase (ALT/SGPT) 25 Alkaline Phosphatase 98 B-Type Natriuretic Peptide 1700 H Total Protein 7.1 Albumin 3.9 Globulin 3.20 Albumin/Globulin Ratio 1.21 Test 12/20/16 11:52 Bedside Glucose 83 Medications Medications Current Medications Ondansetron HCl (Zofran Inj) 4 mg Q6H PRN IV NAUSEA AND/OR VOMITING; Start 04/27 at 17:00 Acetaminophen (Tylenol Liquid) 650 mg Q6H PRN PO PAIN LEVEL 1-3 OR FEVER Last administered on 12/10/16t 03:59; Admin Dose 650 MG; Start 11/19/16 at 17:00 Acetaminophen (Tylenol Supp) 650 mg Q4H PRN [place] PAIN LEVEL 1-3 OR FEVER; Start 11/19/16 at 17:00 Docusate Sodium (Colace) 100 mg Q12H PRN PO CONSTIPATION; Start 11/19/16 at 17: 00 Magnesium Hydroxide (Milk Of Mag) 30 ml DAILY PRN PO CONSTIPATION Last administered on 11/29/16 09:23; Admin Dose 30 ML; Start 11/19/16 at 17:00 Bisacodyl (Dulcolax Supp) 10 mg DAILY PRN [place] CONSTIPATION Last administered on 11/29/16 09:23; Admin Dose 10 MG; Start 11/19/16 at 17:00 Miscellaneous Information 1 ea NOTE XX ; Start 11/19/16 at 17:30 Glucose (Glutose) 15 gm Q15M PRN PO DECREASED GLUCOSE; Start 11/19/16 at 17:30 Glucose (Glutose) 22.5 gm Q15M PRN PO DECREASED GLUCOSE; Start 11/19/16 at 17: 30 Dextrose (D50w Syringe) 25 ml Q15M PRN IV DECREASED GLUCOSE Last administered on 12/03/16 20:15; Admin Dose 25 ML; Start 11/19/16 at 17:30 Dextrose (D50w Syringe) 50 ml Q15M PRN IV DECREASED GLUCOSE; Start 11/19/16 at 17:30 Glucagon (Glucagen) 1 mg Q15M PRN IM DECREASED GLUCOSE; Start 11/19/16 at 17:30 Glucose (Glutose) 15 gm Q15M PRN BUCCAL DECREASED GLUCOSE; Start 11/19/16 at 17 :30 Atorvastatin Calcium (Lipitor) 10 mg HS NGT Last administered on 12/19/16 21: 38; Admin Dose 10 MG; Start 11/24/16 at 21:00 Mupirocin (Bactroban) 1 applic BID TOP Last administered on 12/20/16 08:34; Admin Dose 1 APPLIC; Start 11/27/16 at 09:30 Insulin Glargine (Lantus) 20 unit DAILY@20 SC Last administered on 12/19/16 21 :48; Admin Dose 20 UNIT; Start 11/27/16 at 20:00 Folic Acid (Folic Acid) 1 mg DAILY NGT Last administered on 12/20/16 08:30; Admin Dose 1 MG; Start 11/29/16 at 10:00 Multivitamins (Multivitamin) 30 ml DAILY NGT Last administered on 12/20/16 08: 37; Admin Dose 30 ML; Start 11/29/16 at 10:30 Hydralazine HCl (Apresoline) 10 mg Q2 PRN IV For SBP >170 Last administered on 12/11/16 08:33; Admin Dose 10 MG; Start 12/04/16 at 00:00 IV Flush (NS 10 ml) 10 ml PRN PRN IV IV PROTOCOL Last administered on 12/09/16 20:42; Admin Dose 10 ML; Start 12/08/16 at 16:00 Diagnostic Test (Pha) (Accu-Chek) 1 ea 02 XX Last administered on 12/13/16 02: 00; Admin Dose 1 EA; Start 12/09/16 at 13:30 Aspirin (Aspirin) 81 mg DAILY PO Last administered on 12/20/16 08:33; Admin Dose 81 MG; Start 12/10/16 at 09:00 Quetiapine Fumarate (Seroquel) 25 mg Q4H PRN PO agitation Last administered on 12/20/16 13:07; Admin Dose 25 MG; Start 12/10/16 at 10:30 Pantoprazole (Protonix Tab) 40 mg DAILY@06 PO Last administered on 12/20/16 06 :45; Admin Dose 40 MG; Start 12/17/16 at 09:30 Lisinopril (Zestril) 20 mg DAILY PO Last administered on 12/20/16 08:34; Admin Dose 20 MG; Start 12/20/16 at 09:00 Quetiapine Fumarate (Seroquel) 100 mg BID PO Last administered on 12/20/16 08: 33; Admin Dose 100 MG; Start 12/19/16 at 21:00 Divalproex Sodium (Depakote) 250 mg BID PO Last administered on 12/20/16 08:30 ; Admin Dose 250 MG; Start 12/19/16 at 21:00 Clopidogrel Bisulfate (plaVIX) 75 mg DAILY PO Last administered on 12/20/16 10 :31; Admin Dose 75 MG; Start 12/20/16 at 09:30 PIO VEGA Dec 20, 2016 14:34
[2016-12-20] MEDS: ATORVASTATIN 10 MG TAB NGT SCH (20:55)
[2016-12-20] MEDS: INSULIN GLARGINE [LANtus] 3 ML PEN SC SCH (21:00)
[2016-12-21] VITALS (11 sets, daily range): BP systolic 101–144; BP diastolic 59–73; PULSE 50–85; RESP 18–20
[2016-12-21] MEDS: IPRATROPIUM (NEB) 0.5 MG/2.5 ML AMP HHN SCH ×4 (02:00→19:56)
[2016-12-21] MEDS: LEVALBUTEROL (NEB) 0.63 MG/3 ML AMP HHN SCH ×4 (02:00→19:56)
[2016-12-21] MEDS: ACCUCHECK 2 AM XX SCH (02:00)
[2016-12-21] MEDS: PANTOPRAZOLE (EC) 40 MG TAB PO SCH (05:30)
[2016-12-21] MEDS: Insulin NOVOLOG SS MODERATE Algorithm (SS with meals and bedtime) SC SCH ×4 (07:55→21:00)
[2016-12-21 08:04] LABS: ADD SCAN DIFF NO; BASOPHIL # 0.1 10^3/ul (0.0-0.1); BASOPHILS % 0.6 % (0.0-2.0); EOSINOPHILS # 0.7 10^3/ul (0.0-0.5); EOSINOPHILS % 7.2 % (0.0-7.0); HEMATOCRIT 34.1 % (42.0-52.0); HEMOGLOBIN 11.4 g/dl (14.0-18.0); LYMPHOCYTES # 1.5 10^3/ul (0.8-2.9); LYMPHOCYTES % 15.7 % (15.0-51.0); MEAN CORPUSCULAR HEMOGLOBIN 31.1 pg (29.0-33.0); MEAN CORPUSCULAR HGB CONC 33.4 g/dl (32.0-37.0); MEAN CORPUSCULAR VOLUME 93.2 fl (82.0-101.0); MEAN PLATELET VOLUME 11.6 fl (7.4-10.4); MONOCYTE # 0.7 10^3/ul (0.3-0.9); MONOCYTES % 7.6 % (0.0-11.0); NEUTROPHIL # 6.4 10^3/ul (1.6-7.5); NEUTROPHILS % 68.6 % (39.0-77.0); PLATELET COUNT 203 10^3/UL (140-415); RED BLOOD COUNT 3.66 10^6/ul (4.70-6.10); RED CELL DISTRIBUTION WIDTH 16.1 % (11.5-14.5); WHITE BLOOD COUNT 9.4 10^3/ul (4.8-10.8)
[2016-12-21] MEDS: MULTIVITAMINS 30 ML CUP NGT SCH (08:24)
[2016-12-21] MEDS: FOLIC ACID 1 MG TAB NGT SCH (08:25)
[2016-12-21] MEDS: QUETIAPINE 100 MG TAB PO SCH ×2 (08:25→21:06)
[2016-12-21] MEDS: DIVALPROEX (EC) 250 MG TAB PO SCH ×2 (08:25→21:06)
[2016-12-21] MEDS: MUPIROCIN 2% 22 GM OINT TOP SCH ×2 (08:25→21:06)
[2016-12-21] MEDS: LISINOPRIL 20 MG TAB PO SCH (08:25)
[2016-12-21] MEDS: CLOPIDOGREL 75 MG TAB PO SCH (08:25)
[2016-12-21] MEDS: ASPIRIN 81 MG TAB PO SCH (08:25)
[2016-12-21 08:31] LABS: ALBUMIN/GLOBULIN RATIO 1.29; BILIRUBIN,INDIRECT 0.5 mg/dl (0-1.1); BILIRUBIN,TOTAL 0.5 mg/dl (0.2-1.3); CALCIUM 10.2 mg/dl (8.4-10.2); CREATININE 1.57 mg/dl (0.61-1.24); MAGNESIUM 1.9 mg/dl (1.7-2.5); POTASSIUM 4.1 mmol/L (3.5-5.1); TOTAL PROTEIN 7.1 g/dl (6.1-8.1)
[2016-12-21 08:48] LABS: INR 1.13; PARTIAL THROMBOPLASTIN TIME 29.2 Sec (25.0-35.0); PROTIME 14.5 Sec (12.2-14.2); PT RATIO 1.1
--- NOTE | 2016-12-21 09:15 | PN ---
Date/Time of Note Date/Time of Note DATE: 12/21/16 TIME: 09:12 Assessment/Plan VTE Prophylaxis VTE Prophylaxis Intervention: heparin Lines/Catheters IV C[facility]ter Type (from [facility]): Saline Lock Urinary Cath still in place: No Assessment/Plan Chief Complaint/Hosp Course ASSESSMENT AND PLAN: 1. Status post ST elevation myocardial infarction, status post cardiac arrest secondary to ventricular tachycardia secondary to above. 2. Status post percutaneous coronary intervention of left circumflex artery. 3. Renal failure. 4. Congestive heart failure. 5. Recurrence of sustained ventricular tachycardia. 6. Paroxysmal atrial fibrillation: currently remains in NSR. 7. Severe encephalopathy: and intermittently hallucinating now and agitation but stable now. 8. Dyslipidemia. 9. Hypertension, 10. s/p resp failure: extubated on 12/06/16 11. episodes of marked sinus bradycardia : r/o TAHMINA 12. s/p sustained VT weeks after his PA. 13. sick sinus syndrome with episodes of marked sinus bradycardia down to HR 25 : unable to start betablocker until has a PPM/ ICD. RECOMMENDATIONS: We will continue with current cardiac care off of amiodarone due to bradycardia and monitor. ASA off of brilinta due to bradycardia and on plavix instead. cont statin cont lisinopril qd I have scheduled pt for the ICD PLACEMENT AND DFT TESTING on sunday 7 AM ( which was the earliest I was able to get arranged given coordination needed between the medical lab technician and anesthesia) NOW that neurologically he has improved. R/B/A D/W PT in detail and consent was obtained. will start coreg once ICD is in place. . Problems: Subjective 24 Hr Interval Summary Free Text/Dictation /w staff and rhythm was reviewed. he remains in NSR/ Sinus bradycardia. PT Denies any chest pain to me. but pt's confusion has significantly improved today again and asks appropriate questions. he is asking when his surgery will be. Objective: vascular: + necrosis of toes. Constitutional: awake no distress,, obese, Psych: calm and cooperative today Head: atraumatic, normocephalic Eyes: EOMI, nl conjunctiva Neck: non-tender. no strider Respiratory: no wheezes. Cardiovascular: regular rate and rhythm. systolic murmur. Gastrointestinal: non-tender, soft Extremities: Trace LE edema Neurological: awake. alert, OX3 Exam/Review of Systems Vital Signs Vitals Vital Signs Date Time Temp Pulse Resp B/P Pulse Ox O2 Delivery O2 Flow Rate FiO2 12/21/16 08:25 87.6 62 20 144/59 100 12/21/16 08:12 21 12/19/16 08:05 Nasal Cannula 2.0 Intake and Output 12/20/16 12/20/16 12/21/16 15:00 23:00 07:00 Intake Total 600 ml 250 ml Balance 600 ml 250 ml Results Result Diagram: 12/21/1627 12/21/16726 Results 24 hrs Laboratory Tests Test 12/20/16 11:52 12/20/16 20:49 12/21/16 07:27 12/21/16 08:22 Bedside Glucose 83 124 96 White Blood Count 9.4 Red Blood Count 3.66 L Hemoglobin 11.4 L Hematocrit 34.1 L Mean Corpuscular Volume 93.2 Mean Corpuscular Hemoglobin 31.1 Mean Corpuscular Hemoglobin Concent 33.4 Red Cell Distribution Width 16.1 H Platelet Count 203 Mean Platelet Volume 11.6 H Neutrophils % 68.6 Lymphocytes % 15.7 Monocytes % 7.6 Eosinophils % 7.2 H Basophils % 0.6 Nucleated Red Blood Cells % 0.0 Neutrophils # 6.4 Lymphocytes # 1.5 Monocytes # 0.7 Eosinophils # 0.7 H Basophils # 0.1 Nucleated Red Blood Cells # 0.0 Prothrombin Time 14.5 H Prothrombin Time Ratio 1.1 INR International Normalized Ratio 1.13 Activated Partial Thromboplast Time 29.2 Sodium Level 136 Potassium Level 4.1 Chloride Level 107 Carbon Dioxide Level 23 Anion Gap 10 Blood Urea Nitrogen 17 Creatinine 1.57 H Glucose Level 106 Calcium Level 10.2 Magnesium Level 1.9 Total Bilirubin 0.5 Direct Bilirubin 0.00 Indirect Bilirubin 0.5 Aspartate Amino Transf (AST/SGOT) 19 Alanine Aminotransferase (ALT/SGPT) 29 Alkaline Phosphatase 105 B-Type Natriuretic Peptide 1630 H Total Protein 7.1 Albumin 4.0 Globulin 3.10 Albumin/Globulin Ratio 1.29 Medications Medications Current Medications Ondansetron HCl (Zofran Inj) 4 mg Q6H PRN IV NAUSEA AND/OR VOMITING; Start 04/27 at 17:00 Acetaminophen (Tylenol Liquid) 650 mg Q6H PRN PO PAIN LEVEL 1-3 OR FEVER Last administered on 12/10/16t 03:59; Admin Dose 650 MG; Start 11/19/16 at 17:00 Acetaminophen (Tylenol Supp) 650 mg Q4H PRN [place] PAIN LEVEL 1-3 OR FEVER; Start 11/19/16 at 17:00 Docusate Sodium (Colace) 100 mg Q12H PRN PO CONSTIPATION; Start 11/19/16 at 17: 00 Magnesium Hydroxide (Milk Of Mag) 30 ml DAILY PRN PO CONSTIPATION Last administered on 11/29/16 09:23; Admin Dose 30 ML; Start 11/19/16 at 17:00 Bisacodyl (Dulcolax Supp) 10 mg DAILY PRN [place] CONSTIPATION Last administered on 11/29/16 09:23; Admin Dose 10 MG; Start 11/19/16 at 17:00 Miscellaneous Information 1 ea NOTE XX ; Start 11/19/16 at 17:30 Glucose (Glutose) 15 gm Q15M PRN PO DECREASED GLUCOSE; Start 11/19/16 at 17:30 Glucose (Glutose) 22.5 gm Q15M PRN PO DECREASED GLUCOSE; Start 11/19/16 at 17: 30 Dextrose (D50w Syringe) 25 ml Q15M PRN IV DECREASED GLUCOSE Last administered on 12/03/16 20:15; Admin Dose 25 ML; Start 11/19/16 at 17:30 Dextrose (D50w Syringe) 50 ml Q15M PRN IV DECREASED GLUCOSE; Start 11/19/16 at 17:30 Glucagon (Glucagen) 1 mg Q15M PRN IM DECREASED GLUCOSE; Start 11/19/16 at 17:30 Glucose (Glutose) 15 gm Q15M PRN BUCCAL DECREASED GLUCOSE; Start 11/19/16 at 17 :30 Atorvastatin Calcium (Lipitor) 10 mg HS NGT Last administered on 12/20/16 20: 55; Admin Dose 10 MG; Start 11/24/16 at 21:00 Mupirocin (Bactroban) 1 applic BID TOP Last administered on 12/21/16 08:25; Admin Dose 1 APPLIC; Start 11/27/16 at 09:30 Insulin Glargine (Lantus) 20 unit DAILY@20 SC Last administered on 12/20/16 21 :00; Admin Dose 20 UNIT; Start 11/27/16 at 20:00 Folic Acid (Folic Acid) 1 mg DAILY NGT Last administered on 12/21/16 08:25; Admin Dose 1 MG; Start 11/29/16 at 10:00 Multivitamins (Multivitamin) 30 ml DAILY NGT Last administered on 12/21/16 08: 24; Admin Dose 30 ML; Start 11/29/16 at 10:30 Hydralazine HCl (Apresoline) 10 mg Q2 PRN IV For SBP >170 Last administered on 12/11/16 08:33; Admin Dose 10 MG; Start 12/04/16 at 00:00 IV Flush (NS 10 ml) 10 ml PRN PRN IV IV PROTOCOL Last administered on 12/09/16 20:42; Admin Dose 10 ML; Start 12/08/16 at 16:00 Diagnostic Test (Pha) (Accu-Chek) 1 ea 02 XX Last administered on 12/13/16 02: 00; Admin Dose 1 EA; Start 12/09/16 at 13:30 Aspirin (Aspirin) 81 mg DAILY PO Last administered on 12/21/16 08:25; Admin Dose 81 MG; Start 12/10/16 at 09:00 Quetiapine Fumarate (Seroquel) 25 mg Q4H PRN PO agitation Last administered on 12/20/16 13:07; Admin Dose 25 MG; Start 12/10/16 at 10:30 Pantoprazole (Protonix Tab) 40 mg DAILY@06 PO Last administered on 12/21/16 05 :30; Admin Dose 40 MG; Start 12/17/16 at 09:30 Lisinopril (Zestril) 20 mg DAILY PO Last administered on 12/21/16 08:25; Admin Dose 20 MG; Start 12/20/16 at 09:00 Quetiapine Fumarate (Seroquel) 100 mg BID PO Last administered on 12/21/16 08: 25; Admin Dose 100 MG; Start 12/19/16 at 21:00 Divalproex Sodium (Depakote) 250 mg BID PO Last administered on 12/21/16 08:25 ; Admin Dose 250 MG; Start 12/19/16 at 21:00 Clopidogrel Bisulfate (plaVIX) 75 mg DAILY PO Last administered on 12/21/16 08 :25; Admin Dose 75 MG; Start 12/20/16 at 09:30 SERENA ALCARAZ MD Dec 21, 2016 09:15
--- NOTE | 2016-12-21 11:55 | PN ---
Date/Time of Note Date/Time of Note DATE: 12/21/16 TIME: 11:51 Assessment/Plan VTE Prophylaxis VTE Prophylaxis Intervention: SCD's Lines/Catheters IV [facility] Type [facility] Saline Lock Urinary Cath still in place: No Assessment/Plan Assessment/Plan 56 year old male with multiple medical problems: 1. Paranoia/Biploar disorder: seems to be better controlled with Depakote and Seroquel scheduled, also has Haldol prn . Also hx of polysubstance abuse 2. CAD, s/p STEMI and cardiac arrest; continue current meds more stable now 3. Ischemic Cardiomyopathy with and now with s/p episode of sustained VT and also SSS/A fib with episodes or marked bradycardia, appreciates recs form Dr Dc and patient to have ICD/PPM placed tomorrow. 4. Acute Kidney Injury: improving currently Tolerating po and OFF IVF Continue to monitor. 5. Diabetes mellitus. His blood sugars are fairly stable. A1c 7.1 Continue sliding scale insulin and Lantus to 20 units, continue SSI and will start premeal insulin once taking better po 6. Hypertension: continue current meds 7. Hyperlipidemia: continue statins 8. Obstructive sleep apnea on CPAP at night as outpatient. Monitor here as may need it 9. Tobacco use. Hopefully the patient will quit after this. Nicotine patch. Prophylaxis: Protonix for GI ppx and SCDs for DVT ppx. Dispo: ICD/PPM tomorrow at 7 AM then will need placement. Subjective 24 Hr Interval Summary Free Text/Dictation Patient remains hemodynamically stable and in need for PPM/ICD placement Exam/Review of Systems Vital Signs Vitals Vital Signs Date Time Temp Pulse Resp B/P Pulse Ox O2 Delivery O2 Flow Rate FiO2 12/21/16 08:30 50 12/21/16 08:25 87.6 20 144/59 100 12/21/16 08:12 21 12/19/16 08:05 Nasal Cannula 2.0 Intake and Output 12/20/16 12/20/16 12/21/16 15:00 23:00 07:00 Intake Total 600 ml 250 ml Balance 600 ml 250 ml Exam Constitutional: alert, oriented (x2 ), other (max assist ), well developed Respiratory: clear to auscultation, normal air movement Cardiovascular: nl pulses, regular rate and rhythm Gastrointestinal: non-tender, soft Musculoskeletal: nl extremities to inspection Extremities: normal pulses, other (no edema, clubbing or cyanosis ) Neurological: LAPPER II-XII intact, nl mental status, nl speech, other ( generalised weakness and imbalance ) Results Result Diagram: 12/21/1672612/21/16726 Results 24 hrs Laboratory Tests Test 12/20/16 11:52 12/20/16 20:49 12/21/16 07:27 12/21/16 08:22 Bedside Glucose 83 124 96 White Blood Count 9.4 Red Blood Count 3.66 L Hemoglobin 11.4 L Hematocrit 34.1 L Mean Corpuscular Volume 93.2 Mean Corpuscular Hemoglobin 31.1 Mean Corpuscular Hemoglobin Concent 33.4 Red Cell Distribution Width 16.1 H Platelet Count 203 Mean Platelet Volume 11.6 H Neutrophils % 68.6 Lymphocytes % 15.7 Monocytes % 7.6 Eosinophils % 7.2 H Basophils % 0.6 Nucleated Red Blood Cells % 0.0 Neutrophils # 6.4 Lymphocytes # 1.5 Monocytes # 0.7 Eosinophils # 0.7 H Basophils # 0.1 Nucleated Red Blood Cells # 0.0 Prothrombin Time 14.5 H Prothrombin Time Ratio 1.1 INR International Normalized Ratio 1.13 Activated Partial Thromboplast Time 29.2 Sodium Level 136 Potassium Level 4.1 Chloride Level 107 Carbon Dioxide Level 23 Anion Gap 10 Blood Urea Nitrogen 17 Creatinine 1.57 H Glucose Level 106 Calcium Level 10.2 Magnesium Level 1.9 Total Bilirubin 0.5 Direct Bilirubin 0.00 Indirect Bilirubin 0.5 Aspartate Amino Transf (AST/SGOT) 19 Alanine Aminotransferase (ALT/SGPT) 29 Alkaline Phosphatase 105 B-Type Natriuretic Peptide 1630 H Total Protein 7.1 Albumin 4.0 Globulin 3.10 Albumin/Globulin Ratio 1.29 Medications Medications Current Medications Ondansetron HCl (Zofran Inj) 4 mg Q6H PRN IV NAUSEA AND/OR VOMITING; Start 04/27 at 17:00 Acetaminophen (Tylenol Liquid) 650 mg Q6H PRN PO PAIN LEVEL 1-3 OR FEVER Last administered on 12/10/16t 03:59; Admin Dose 650 MG; Start 11/19/16 at 17:00 Acetaminophen (Tylenol Supp) 650 mg Q4H PRN [place] PAIN LEVEL 1-3 OR FEVER; Start 11/19/16 at 17:00 Docusate Sodium (Colace) 100 mg Q12H PRN PO CONSTIPATION; Start 11/19/16 at 17: 00 Magnesium Hydroxide (Milk Of Mag) 30 ml DAILY PRN PO CONSTIPATION Last administered on 11/29/16 09:23; Admin Dose 30 ML; Start 11/19/16 at 17:00 Bisacodyl (Dulcolax Supp) 10 mg DAILY PRN [place] CONSTIPATION Last administered on 11/29/16 09:23; Admin Dose 10 MG; Start 11/19/16 at 17:00 Miscellaneous Information 1 ea NOTE XX ; Start 11/19/16 at 17:30 Glucose (Glutose) 15 gm Q15M PRN PO DECREASED GLUCOSE; Start 11/19/16 at 17:30 Glucose (Glutose) 22.5 gm Q15M PRN PO DECREASED GLUCOSE; Start 11/19/16 at 17: 30 Dextrose (D50w Syringe) 25 ml Q15M PRN IV DECREASED GLUCOSE Last administered on 12/03/16 20:15; Admin Dose 25 ML; Start 11/19/16 at 17:30 Dextrose (D50w Syringe) 50 ml Q15M PRN IV DECREASED GLUCOSE; Start 11/19/16 at 17:30 Glucagon (Glucagen) 1 mg Q15M PRN IM DECREASED GLUCOSE; Start 11/19/16 at 17:30 Glucose (Glutose) 15 gm Q15M PRN BUCCAL DECREASED GLUCOSE; Start 11/19/16 at 17 :30 Atorvastatin Calcium (Lipitor) 10 mg HS NGT Last administered on 12/20/16 20: 55; Admin Dose 10 MG; Start 11/24/16 at 21:00 Mupirocin (Bactroban) 1 applic BID TOP Last administered on 12/21/16 08:25; Admin Dose 1 APPLIC; Start 11/27/16 at 09:30 Insulin Glargine (Lantus) 20 unit DAILY@20 SC Last administered on 12/20/16 21 :00; Admin Dose 20 UNIT; Start 11/27/16 at 20:00 Folic Acid (Folic Acid) 1 mg DAILY NGT Last administered on 12/21/16 08:25; Admin Dose 1 MG; Start 11/29/16 at 10:00 Multivitamins (Multivitamin) 30 ml DAILY NGT Last administered on 12/21/16 08: 24; Admin Dose 30 ML; Start 11/29/16 at 10:30 Hydralazine HCl (Apresoline) 10 mg Q2 PRN IV For SBP >170 Last administered on 12/11/16 08:33; Admin Dose 10 MG; Start 12/04/16 at 00:00 IV Flush (NS 10 ml) 10 ml PRN PRN IV IV PROTOCOL Last administered on 12/09/16 20:42; Admin Dose 10 ML; Start 12/08/16 at 16:00 Diagnostic Test (Pha) (Accu-Chek) 1 ea 02 XX Last administered on 12/13/16 02: 00; Admin Dose 1 EA; Start 12/09/16 at 13:30 Aspirin (Aspirin) 81 mg DAILY PO Last administered on 12/21/16 08:25; Admin Dose 81 MG; Start 12/10/16 at 09:00 Quetiapine Fumarate (Seroquel) 25 mg Q4H PRN PO agitation Last administered on 12/20/16 13:07; Admin Dose 25 MG; Start 12/10/16 at 10:30 Pantoprazole (Protonix Tab) 40 mg DAILY@06 PO Last administered on 12/21/16 05 :30; Admin Dose 40 MG; Start 12/17/16 at 09:30 Lisinopril (Zestril) 20 mg DAILY PO Last administered on 12/21/16 08:25; Admin Dose 20 MG; Start 12/20/16 at 09:00 Quetiapine Fumarate (Seroquel) 100 mg BID PO Last administered on 12/21/16 08: 25; Admin Dose 100 MG; Start 12/19/16 at 21:00 Divalproex Sodium (Depakote) 250 mg BID PO Last administered on 12/21/16 08:25 ; Admin Dose 250 MG; Start 12/19/16 at 21:00 Clopidogrel Bisulfate 75 mg 75 mg DAILY PO Last administered on 12/21/16 08:25 ; Admin Dose 75 MG; Start 12/20/16 at 09:30 Sodium Chloride (NS) 1,000 ml @ 100 mls/hr Q10H IV ; Start 12/21/16 at 23:30; Stop 12/22/16 at 09:29 PIO VEGA F Dec 21, 2016 11:55
[2016-12-21] MEDS: ATORVASTATIN 10 MG TAB NGT SCH (21:06)
[2016-12-21] MEDS: INSULIN GLARGINE [LANtus] 3 ML PEN SC SCH (22:04)
[2016-12-21] MEDS ORDERED: INSULIN GLARGINE [LANtus] 3 ML PEN SC ONE (22:30)
[2016-12-21] MEDS ORDERED: SOD CHLORIDE 0.9% 1,000 ML IV SCH (23:30)
[2016-12-22] VITALS (19 sets, daily range): BP systolic 18–122; BP diastolic 48–74; PULSE 59–68; RESP 15–27
[2016-12-22] MEDS: IPRATROPIUM (NEB) 0.5 MG/2.5 ML AMP HHN SCH ×4 (01:55→20:00)
[2016-12-22] MEDS: LEVALBUTEROL (NEB) 0.63 MG/3 ML AMP HHN SCH ×4 (01:55→20:00)
[2016-12-22] MEDS: ACCUCHECK 2 AM XX SCH ×2 (02:00→23:41)
[2016-12-22] MEDS: PANTOPRAZOLE (EC) 40 MG TAB PO SCH (06:00)
[2016-12-22] MEDS ORDERED: POLYMYXIN/BACITRACIN 1L IRRIG IRR ONE (06:18)
[2016-12-22 06:48] LABS: ADD SCAN DIFF NO
[2016-12-22 06:55] LABS: BASOPHIL # 0.1 10^3/ul (0.0-0.1); BASOPHILS % 0.8 % (0.0-2.0); EOSINOPHILS # 0.8 10^3/ul (0.0-0.5); EOSINOPHILS % 6.8 % (0.0-7.0); HEMATOCRIT 35.8 % (42.0-52.0); HEMOGLOBIN 11.6 g/dl (14.0-18.0); LYMPHOCYTES # 1.9 10^3/ul (0.8-2.9); LYMPHOCYTES % 16.7 % (15.0-51.0); MEAN CORPUSCULAR HEMOGLOBIN 30.1 pg (29.0-33.0); MEAN CORPUSCULAR HGB CONC 32.4 g/dl (32.0-37.0); MONOCYTE # 0.9 10^3/ul (0.3-0.9); MONOCYTES % 7.8 % (0.0-11.0); NEUTROPHIL # 7.7 10^3/ul (1.6-7.5); NEUTROPHILS % 67.5 % (39.0-77.0); PLATELET COUNT 208 10^3/UL (140-415); RED BLOOD COUNT 3.85 10^6/ul (4.70-6.10); RED CELL DISTRIBUTION WIDTH 16.2 % (11.5-14.5); WHITE BLOOD COUNT 11.4 10^3/ul (4.8-10.8)
[2016-12-22] MEDS ORDERED: MIDAZOLAM 1 MG/ML 2 ML INJ ONE (07:05)
[2016-12-22] MEDS ORDERED: FENTAnyl 50 MCG/ML VIAL ONE (07:05)
[2016-12-22] MEDS ORDERED: PROPOFOL 20 ML ONE (07:06)
[2016-12-22] MEDS ORDERED: EPHEDrine SULFATE 50 MG/5 ML SYG ONE (07:06)
[2016-12-22 07:10] LABS: INR 1.07; PROTIME 13.9 Sec (12.2-14.2); PT RATIO 1.1
[2016-12-22 07:17] LABS: ALBUMIN 4.1 g/dl (3.3-4.9); ALBUMIN/GLOBULIN RATIO 1.2; BILIRUBIN,INDIRECT 0.5 mg/dl (0-1.1); BILIRUBIN,TOTAL 0.5 mg/dl (0.2-1.3); CALCIUM 10.4 mg/dl (8.4-10.2); CREATININE 1.67 mg/dl (0.61-1.24); MAGNESIUM 1.9 mg/dl (1.7-2.5); POTASSIUM 3.9 mmol/L (3.5-5.1); TOTAL PROTEIN 7.5 g/dl (6.1-8.1)
[2016-12-22] MEDS: Insulin NOVOLOG SS MODERATE Algorithm (SS with meals and bedtime) SC SCH ×4 (07:34→20:59)
--- NOTE | 2016-12-22 08:23 | OPR ---
Date/Time of Note Date/Time of Note DATE: 12/22/16 TIME: 08:18 Operative Report Procedure Date: Dec 22, 2016 Procedure Description Operative\Procedure NOTE: Procedure performed: Implantation of dual-chamber ICD using a [employer] device Fluoroscopy and supervision Intracardiac electrocardiogram and defibrillator threshold testing. Indication: CHF and severe cardiomyopathy. ischemic cardiomyopathy and VT cardiac arrest and sustained VT weeks after his PR. Anesthesia: Per anesthesiologist Digital Manager: Serena Simeon MD Procedure in detail: Written informed consent was obtained after risks benefits and alternatives discussed with the patient and family in detail. Risks including but not limited to risk of infection, bleeding complications, anesthesia related complications, PR, CVA, perforation, pneumothorax hemothorax, etc discussed with pt in detail. Patient was brought into into the [employer] and placed in supine position. sedation was given. Right and left chest area was prepped and draped in regular sterile fashion. [] Left subclavian venogram was performed that showed patent subclavian vein and a small cephalic vein. AC groove area was anesthetized using 1% lidocaine with epi. A 4 cm incision was made in the AC groove area. Blunt dissection was carried out. Cephalic vein was too small. left subclavian vein was cannulated under flouroscopy and venous flow was noted. mictropuncture sheath and over the wire a 6 F sheath was placed and changed it to a 9 F sheath and a . RV ICD lead was advanced under direct fluoroscopy and placed in the apex. Once a good position was found, threshold was checked which showed excellent threshold. It was screwed into place and threshold were checked again which showed good injury pattern and no diaphragmatic stimulation at 10 V an excellent thresholds. Then the sheath was peeled away. Another 6 [place] sheath was placed over the second wire into the cephalic vein into the subclavian vein. Right atrial lead was advanced under direct fluoroscopy and placed into the right atrial appendage. Once a good position was found it was screwed into place. Thresholds were checked again which showed excellent injury pattern and no diaphragmatic assimilation at 10 V and good thresholds. Right atrial lead sheath was removed. Both leads were tied down using 0 Ethibond suture. Pocket was irrigated with antibiotic solution. The lead was checked again which showed good thresholds. Then leads were connected into the device. Device was placed into the pocket and sutured using 0 Ethibond suture. At this point if defibrillator threshold testing was performed. First external defibrillator was checked as 1 J. Then through the device patient was induced into V. fib using the method of shock on T. The device appropriately detected the V. fib and successfully cardioverted the patient back into sinus/paced rhythm at 20 J. Pocket was irrigated again using antibiotic solution. Wound was closed with 1 layer of 2.0 Vicryl and 2 layers of 3.0 Vicryl. Steri- Strip was applied and pressure dressing was applied. Patient tolerated procedure well with no complication and was transferred to the recovery room in stable condition. Immediate complication: none Please see physical chart for details regarding pacemaker information and thresholds. Conclusions: Successful implantation of dual-chamber ICD and defibrillator threshold testing. SERENA SIMEON MD Dec 22, 2016 08:23
[2016-12-22] MEDS ORDERED: ACETAMINOPHEN 325 MG TAB PO PRN (08:30)
[2016-12-22] MEDS ORDERED: morphine 2 MG INJ IV PRN ×2 (08:30)
[2016-12-22] MEDS: CLOPIDOGREL 75 MG TAB PO SCH (09:32)
[2016-12-22] MEDS: DIVALPROEX (EC) 250 MG TAB PO SCH ×2 (09:32→20:54)
[2016-12-22] MEDS: FOLIC ACID 1 MG TAB NGT SCH (09:32)
[2016-12-22] MEDS: ASPIRIN 81 MG TAB PO SCH (09:32)
[2016-12-22] MEDS: QUETIAPINE 100 MG TAB PO SCH ×2 (09:32→20:54)
[2016-12-22] MEDS: MULTIVITAMINS 30 ML CUP NGT SCH (09:32)
[2016-12-22] MEDS: MUPIROCIN 2% 22 GM OINT TOP SCH ×2 (09:33→21:00)
[2016-12-22] MEDS: LISINOPRIL 20 MG TAB PO SCH (09:36)
--- NOTE | 2016-12-22 10:04 | RADRPT ---
PROCEDURE: XR Chest 1 View. CLINICAL INDICATION: Status post pacemaker insertion. TECHNIQUE: AP view of the chest was obtained. COMPARISON: December 19, 2016 FINDINGS: The cardiomediastinal silhouette is within normal limits. Left-sided dual chamber pacemaker/defibril lator has its leads over the heart. Scattered atelectasis is noted in the bilateral lower lobes. No consolidations are identified. No pneumothorax is seen. Osseous structures are intact. IMPRESSION: Left-sided dual chamber pacemaker/defibrillator with its leads over the heart. No visualized pneumo thorax. Scattered atelectasis in the bilateral lower lobes. RPTAT: AA .William Beckwith MD, MD Date Time Electronically viewed and signed by .William Beckwith MD, on 12/22/2016 10:04 .P/
--- NOTE | 2016-12-22 13:15 | PN ---
Date/Time of Note Date/Time of Note DATE: 12/22/16 TIME: 13:10 Assessment/Plan VTE Prophylaxis VTE Prophylaxis Intervention: SCD's Lines/Catheters IV [facility]from [facility] Peripheral IV Urinary Cath still in place: No Assessment/Plan Assessment/Plan 56 year old male with multiple medical problems: 1. Paranoia/Bipolar disorder: seems to be better controlled with Depakote and Seroquel scheduled, also has Haldol prn . Also hx of polysubstance abuse 2. CAD, s/p STEMI and cardiac arrest; continue current meds more stable now 3. Ischemic Cardiomyopathy with and now with s/p episode of sustained VT and also SSS/A fib with episodes or marked bradycardia, appreciates recs form Dr Dc S/P and patient ICD/PPM placement this AM. 4. Acute Kidney Injury: improving currently Tolerating po and OFF IVF Continue to monitor. 5. Diabetes mellitus. His blood sugars are fairly stable. A1c 7.1 Continue sliding scale insulin and Lantus to 20 units, continue SSI and will start premeal insulin once taking better po 6. Hypertension: continue current meds 7. Hyperlipidemia: continue statins 8. Obstructive sleep apnea on CPAP at night as outpatient. Monitor here as may need it 9. Tobacco use. Hopefully the patient will quit after this. Nicotine patch. Prophylaxis: Protonix for GI ppx and SCDs for DVT ppx. Dispo: s/p ICD/PPM this morning, discharge planning and snf facility placement when okay per cardiology hopefully this Subjective 24 Hr Interval Summary Free Text/Dictation Patient is status post ICD/PPM placement this morning by Dr. Simeon He is stable currently. He will be observed on telemetry for the next 24-48 hours prior to snf facility placement fully just weekend. Renal function is stable patient likely with chronic kidney disease. Respiratory status stable. He has been calmer and more compliant. Exam/Review of Systems Vital Signs Vitals Vital Signs Date Time Temp Pulse Resp B/P Pulse Ox O2 Delivery O2 Flow Rate FiO2 12/22/16 12:00 60 12/22/16 12:00 98.4 18 106/63 96 12/22/16 04:00 Room Air 12/22/16 01:56 21 12/19/16 08:05 2.0 Intake and Output 12/21/16 12/21/16 12/22/16 15:00 23:00 07:00 Intake Total 450 ml 120 ml Output Total 6 ml Balance 444 ml 120 ml Exam Constitutional: alert, frail, oriented Respiratory: clear to auscultation, normal air movement Cardiovascular: nl pulses, other (Status post PPM/ICD), regular rate and rhythm Gastrointestinal: non-tender, soft Musculoskeletal: other (Areas of ischemia on toes stable) Extremities: normal pulses Neurological: AUDITING CODER II-XII intact, lethargic, nl mental status, nl speech Results Result Diagram: 12/22/1640 12/22/16 0640 Results 24 hrs Laboratory Tests Test 12/21/16 16:41 12/21/16 21:02 12/22/16 06:40 12/22/16 11:49 Bedside Glucose 90 109 118 White Blood Count 11.4 #H Red Blood Count 3.85 L Hemoglobin 11.6 L Hematocrit 35.8 L Mean Corpuscular Volume 93.0 Mean Corpuscular Hemoglobin 30.1 Mean Corpuscular Hemoglobin Concent 32.4 Red Cell Distribution Width 16.2 H Platelet Count 208 Mean Platelet Volume 11.0 H Neutrophils % 67.5 Lymphocytes % 16.7 Monocytes % 7.8 Eosinophils % 6.8 Basophils % 0.8 Nucleated Red Blood Cells % 0.0 Neutrophils # 7.7 H Lymphocytes # 1.9 Monocytes # 0.9 Eosinophils # 0.8 H Basophils # 0.1 Nucleated Red Blood Cells # 0.0 Prothrombin Time 13.9 Prothrombin Time Ratio 1.1 INR International Normalized Ratio 1.07 Sodium Level 132 L Potassium Level 3.9 Chloride Level 102 Carbon Dioxide Level 25 Anion Gap 9 Blood Urea Nitrogen 19 Creatinine 1.67 H Glucose Level 102 Calcium Level 10.4 H Magnesium Level 1.9 Total Bilirubin 0.5 Direct Bilirubin 0.00 Indirect Bilirubin 0.5 Aspartate Amino Transf (AST/SGOT) 17 Alanine Aminotransferase (ALT/SGPT) 27 Alkaline Phosphatase 108 Total Protein 7.5 Albumin 4.1 Globulin 3.40 H Albumin/Globulin Ratio 1.20 Medications Medications Current Medications Ondansetron HCl (Zofran Inj) 4 mg Q6H PRN IV NAUSEA AND/OR VOMITING; Start 04/27 at 17:00 Acetaminophen (Tylenol Liquid) 650 mg Q6H PRN PO PAIN LEVEL 1-3 OR FEVER Last administered on 12/10/16t 03:59; Admin Dose 650 MG; Start 11/19/16 at 17:00 Acetaminophen (Tylenol Supp) 650 mg Q4H PRN [place] PAIN LEVEL 1-3 OR FEVER; Start 11/19/16 at 17:00 Docusate Sodium (Colace) 100 mg Q12H PRN PO CONSTIPATION; Start 11/19/16 at 17: 00 Magnesium Hydroxide (Milk Of Mag) 30 ml DAILY PRN PO CONSTIPATION Last administered on 11/29/16 09:23; Admin Dose 30 ML; Start 11/19/16 at 17:00 Bisacodyl (Dulcolax Supp) 10 mg DAILY PRN [place] CONSTIPATION Last administered on 11/29/16 09:23; Admin Dose 10 MG; Start 11/19/16 at 17:00 Miscellaneous Information 1 ea NOTE XX ; Start 11/19/16 at 17:30 Glucose (Glutose) 15 gm Q15M PRN PO DECREASED GLUCOSE; Start 11/19/16 at 17:30 Glucose (Glutose) 22.5 gm Q15M PRN PO DECREASED GLUCOSE; Start 11/19/16 at 17: 30 Dextrose (D50w Syringe) 25 ml Q15M PRN IV DECREASED GLUCOSE Last administered on 12/03/16 20:15; Admin Dose 25 ML; Start 11/19/16 at 17:30 Dextrose (D50w Syringe) 50 ml Q15M PRN IV DECREASED GLUCOSE; Start 11/19/16 at 17:30 Glucagon (Glucagen) 1 mg Q15M PRN IM DECREASED GLUCOSE; Start 11/19/16 at 17:30 Glucose (Glutose) 15 gm Q15M PRN BUCCAL DECREASED GLUCOSE; Start 11/19/16 at 17 :30 Atorvastatin Calcium (Lipitor) 10 mg HS NGT Last administered on 12/21/16 21: 06; Admin Dose 10 MG; Start 11/24/16 at 21:00 Mupirocin (Bactroban) 1 applic BID TOP Last administered on 12/22/16 09:33; Admin Dose 1 APPLIC; Start 11/27/16 at 09:30 Insulin Glargine (Lantus) 20 unit DAILY@20 SC Last administered on 12/20/16 21 :00; Admin Dose 20 UNIT; Start 11/27/16 at 20:00 Folic Acid (Folic Acid) 1 mg DAILY NGT Last administered on 12/22/16 09:32; Admin Dose 1 MG; Start 11/29/16 at 10:00 Multivitamins (Multivitamin) 30 ml DAILY NGT Last administered on 12/22/16 09: 32; Admin Dose 30 ML; Start 11/29/16 at 10:30 Hydralazine HCl (Apresoline) 10 mg Q2 PRN IV For SBP >170 Last administered on 12/11/16 08:33; Admin Dose 10 MG; Start 12/04/16 at 00:00 IV Flush (NS 10 ml) 10 ml PRN PRN IV IV PROTOCOL Last administered on 12/09/16 20:42; Admin Dose 10 ML; Start 12/08/16 at 16:00 Diagnostic Test (Pha) (Accu-Chek) 1 ea 02 XX Last administered on 12/13/16 02: 00; Admin Dose 1 EA; Start 12/09/16 at 13:30 Aspirin (Aspirin) 81 mg DAILY PO Last administered on 12/22/16 09:32; Admin Dose 81 MG; Start 12/10/16 at 09:00 Quetiapine Fumarate (Seroquel) 25 mg Q4H PRN PO agitation Last administered on 12/20/16 13:07; Admin Dose 25 MG; Start 12/10/16 at 10:30 Pantoprazole (Protonix Tab) 40 mg DAILY@06 PO Last administered on 12/21/16 05 :30; Admin Dose 40 MG; Start 12/17/16 at 09:30 Lisinopril (Zestril) 20 mg DAILY PO Last administered on 12/22/16 09:36; Admin Dose 20 MG; Start 12/20/16 at 09:00 Quetiapine Fumarate (Seroquel) 100 mg BID PO Last administered on 12/22/16 09: 32; Admin Dose 100 MG; Start 12/19/16 at 21:00 Divalproex Sodium (Depakote) 250 mg BID PO Last administered on 12/22/16 09:32 ; Admin Dose 250 MG; Start 12/19/16 at 21:00 Clopidogrel Bisulfate (plaVIX) 75 mg DAILY PO Last administered on 12/22/16 09 :32; Admin Dose 75 MG; Start 12/20/16 at 09:30 Acetaminophen (Tylenol Tab) 650 mg Q4H PRN PO NON-CARDIAC PAIN LEVEL (1-3); Start 12/22/16 at 08:30 Morphine Sulfate (morphine) 2 mg Q2H PRN IV FOR NON CARDIAC PAIN (4-10); Start 12/22/16 at 08:30 Morphine Sulfate 1 mg 1 mg Q1H PRN IV PAIN; Start 12/22/16 at 08:30 Cefazolin Sodium (Ancef 1 Gm/50 ml (Pmx)) 50 ml @ 100 mls/hr Q8 IVPB ; Start at 14:00; Stop 12/23/16 at 06:29 PIO VEGA Dec 22, 2016 13:15
--- NOTE | 2016-12-22 14:03 | RADRPT ---
Vent Rate: 66 bpm RR Interval: 0 msec AR Interval: 166 msec QRS Duration: 112 msec QT Interval: 448 msec QTC Interval: 469 msec P-R-T [place]: 34 - 50 - 47 degrees Normal sinus rhythm Incomplete right bundle branch block Septal infarct , age undetermined Abnormal ECG Electronically Signed By: Yobany Lima [id number]
[2016-12-22] MEDS: CEFAZOLIN 1 GM/50 ML (PMX) 50 ML IVPB SCH ×2 (14:33→22:58)
--- NOTE | 2016-12-22 19:14 | PN ---
Date/Time of Note Date/Time of Note DATE: 12/22/16 TIME: 19:10 Assessment/Plan VTE Prophylaxis VTE Prophylaxis Intervention: ambulation, other Lines/Catheters [facility] [place] Urinary Cath still in place: No Assessment/Plan Chief Complaint/Hosp Course ASSESSMENT AND PLAN: 1. Status post ST elevation myocardial infarction, status post cardiac arrest secondary to ventricular tachycardia secondary to above. 2. Status post percutaneous coronary intervention of left circumflex artery. 3. Renal failure. 4. Congestive heart failure. 5. Recurrence of sustained ventricular tachycardia. 6. Paroxysmal atrial fibrillation: currently remains in NSR. 7. Severe encephalopathy: and intermittently hallucinating now and agitation but stable now. 8. Dyslipidemia. 9. Hypertension, 10. s/p resp failure: extubated on 12/06/16 11. episodes of marked sinus bradycardia : r/o TAHMINA 12. s/p sustained VT weeks after his DC. : s/p ICD now 13. sick sinus syndrome with episodes of marked sinus bradycardia down to HR 25 : . RECOMMENDATIONS: We will continue with current cardiac care off of amiodarone due to bradycardia and monitor. ASA cont plavix i cont statin will add coreg 3.125 bid now that has an ICD DEC lisinopril qd will interrogate ICD tomorrow am again will need to keep the wound site clean and dry until reevaluated in about 1-2 weeks in office. keep steristips to air will need ICD interrogation in about [address] Le will follow up tomorrow . Problems: Subjective 24 Hr Interval Summary Free Text/Dictation d/w staff and rhythm was reviewed. he remains in NSR / Apaced post ICD PT Denies any chest pain to me. Objective: vascular: + necrosis of toes. Constitutional: awake no distress,, obese, Psych: calm and cooperative today Head: atraumatic, normocephalic Eyes: EOMI, nl conjunctiva Neck: non-tender. no strider Respiratory: no wheezes. Cardiovascular: regular rate and rhythm. systolic murmur. Gastrointestinal: non-tender, soft Extremities: Trace LE edema Neurological: awake. alert, OX3 CHEST; S/P ICD no hematoma or bleeding Exam/Review of Systems Vital Signs Vitals Vital Signs Date Time Temp Pulse Resp B/P Pulse Ox O2 Delivery O2 Flow Rate FiO2 12/22/16 16:00 64 12/22/16 15:21 98.8 18 118/58 98 12/22/16 04:00 Room Air 12/22/16 01:56 21 12/19/16 08:05 2.0 Intake and Output 12/21/16 12/21/16 12/22/16 15:00 23:00 07:00 Intake Total 450 ml 120 ml Output Total 6 ml Balance 444 ml 120 ml Results Result Diagram: 12/22/16 0640 12/22/16 0640 Results 24 hrs Laboratory Tests Test 12/21/16 21:02 12/22/16 06:40 12/22/16 11:49 12/22/16 16:58 Bedside Glucose 109 118 167 White Blood Count 11.4 #H Red Blood Count 3.85 L Hemoglobin 11.6 L Hematocrit 35.8 L Mean Corpuscular Volume 93.0 Mean Corpuscular Hemoglobin 30.1 Mean Corpuscular Hemoglobin Concent 32.4 Red Cell Distribution Width 16.2 H Platelet Count 208 Mean Platelet Volume 11.0 H Neutrophils % 67.5 Lymphocytes % 16.7 Monocytes % 7.8 Eosinophils % 6.8 Basophils % 0.8 Nucleated Red Blood Cells % 0.0 Neutrophils # 7.7 H Lymphocytes # 1.9 Monocytes # 0.9 Eosinophils # 0.8 H Basophils # 0.1 Nucleated Red Blood Cells # 0.0 Prothrombin Time 13.9 Prothrombin Time Ratio 1.1 INR International Normalized Ratio 1.07 Sodium Level 141 Potassium Level 3.9 Chloride Level 102 Carbon Dioxide Level 25 Anion Gap 18 #H Blood Urea Nitrogen 19 Creatinine 1.67 H Glucose Level 102 Calcium Level 10.4 H Magnesium Level 1.9 Total Bilirubin 0.5 Direct Bilirubin 0.00 Indirect Bilirubin 0.5 Aspartate Amino Transf (AST/SGOT) 17 Alanine Aminotransferase (ALT/SGPT) 27 Alkaline Phosphatase 108 Total Protein 7.5 Albumin 4.1 Globulin 3.40 H Albumin/Globulin Ratio 1.20 Medications Medications Current Medications Ondansetron HCl (Zofran Inj) 4 mg Q6H PRN IV NAUSEA AND/OR VOMITING; Start 04/27 at 17:00 Acetaminophen (Tylenol Liquid) 650 mg Q6H PRN PO PAIN LEVEL 1-3 OR FEVER Last administered on 12/10/16t 03:59; Admin Dose 650 MG; Start 11/19/16 at 17:00 Acetaminophen (Tylenol Supp) 650 mg Q4H PRN [place] PAIN LEVEL 1-3 OR FEVER; Start 11/19/16 at 17:00 Docusate Sodium (Colace) 100 mg Q12H PRN PO CONSTIPATION; Start 11/19/16 at 17: 00 Magnesium Hydroxide (Milk Of Mag) 30 ml DAILY PRN PO CONSTIPATION Last administered on 11/29/16 09:23; Admin Dose 30 ML; Start 11/19/16 at 17:00 Bisacodyl (Dulcolax Supp) 10 mg DAILY PRN [place] CONSTIPATION Last administered on 11/29/16 09:23; Admin Dose 10 MG; Start 11/19/16 at 17:00 Miscellaneous Information 1 ea NOTE XX ; Start 11/19/16 at 17:30 Glucose (Glutose) 15 gm Q15M PRN PO DECREASED GLUCOSE; Start 11/19/16 at 17:30 Glucose (Glutose) 22.5 gm Q15M PRN PO DECREASED GLUCOSE; Start 11/19/16 at 17: 30 Dextrose (D50w Syringe) 25 ml Q15M PRN IV DECREASED GLUCOSE Last administered on 12/03/16 20:15; Admin Dose 25 ML; Start 11/19/16 at 17:30 Dextrose (D50w Syringe) 50 ml Q15M PRN IV DECREASED GLUCOSE; Start 11/19/16 at 17:30 Glucagon (Glucagen) 1 mg Q15M PRN IM DECREASED GLUCOSE; Start 11/19/16 at 17:30 Glucose (Glutose) 15 gm Q15M PRN BUCCAL DECREASED GLUCOSE; Start 11/19/16 at 17 :30 Atorvastatin Calcium (Lipitor) 10 mg HS NGT Last administered on 12/21/16 21: 06; Admin Dose 10 MG; Start 11/24/16 at 21:00 Mupirocin (Bactroban) 1 applic BID TOP Last administered on 12/22/16 09:33; Admin Dose 1 APPLIC; Start 11/27/16 at 09:30 Insulin Glargine (Lantus) 20 unit DAILY@20 SC Last administered on 12/20/16 21 :00; Admin Dose 20 UNIT; Start 11/27/16 at 20:00 Folic Acid (Folic Acid) 1 mg DAILY NGT Last administered on 12/22/16 09:32; Admin Dose 1 MG; Start 11/29/16 at 10:00 Multivitamins (Multivitamin) 30 ml DAILY NGT Last administered on 12/22/16 09: 32; Admin Dose 30 ML; Start 11/29/16 at 10:30 Hydralazine HCl (Apresoline) 10 mg Q2 PRN IV For SBP >170 Last administered on 12/11/16 08:33; Admin Dose 10 MG; Start 12/04/16 at 00:00 IV Flush (NS 10 ml) 10 ml PRN PRN IV IV PROTOCOL Last administered on 12/09/16 20:42; Admin Dose 10 ML; Start 12/08/16 at 16:00 Diagnostic Test (Pha) (Accu-Chek) 1 ea 02 XX Last administered on 12/13/16 02: 00; Admin Dose 1 EA; Start 12/09/16 at 13:30 Aspirin (Aspirin) 81 mg DAILY PO Last administered on 12/22/16 09:32; Admin Dose 81 MG; Start 12/10/16 at 09:00 Quetiapine Fumarate (Seroquel) 25 mg Q4H PRN PO agitation Last administered on 12/20/16 13:07; Admin Dose 25 MG; Start 12/10/16 at 10:30 Pantoprazole (Protonix Tab) 40 mg DAILY@06 PO Last administered on 12/21/16 05 :30; Admin Dose 40 MG; Start 12/17/16 at 09:30 Lisinopril (Zestril) 20 mg DAILY PO Last administered on 12/22/16 09:36; Admin Dose 20 MG; Start 12/20/16 at 09:00 Quetiapine Fumarate (Seroquel) 100 mg BID PO Last administered on 12/22/16 09: 32; Admin Dose 100 MG; Start 12/19/16 at 21:00 Divalproex Sodium (Depakote) 250 mg BID PO Last administered on 12/22/16 09:32 ; Admin Dose 250 MG; Start 12/19/16 at 21:00 Clopidogrel Bisulfate (plaVIX) 75 mg DAILY PO Last administered on 12/22/16 09 :32; Admin Dose 75 MG; Start 12/20/16 at 09:30 Acetaminophen (Tylenol Tab) 650 mg Q4H PRN PO NON-CARDIAC PAIN LEVEL (1-3); Start 12/22/16 at 08:30 Morphine Sulfate (morphine) 2 mg Q2H PRN IV FOR NON CARDIAC PAIN (4-10); Start 12/22/16 at 08:30 Morphine Sulfate 1 mg 1 mg Q1H PRN IV PAIN; Start 12/22/16 at 08:30 Cefazolin Sodium (Ancef 1 Gm/50 ml (Pmx)) 50 ml @ 100 mls/hr Q8 IVPB Last administered on 12/22/16t 14:33; Admin Dose 100 MLS/HR; Start 12/22/16 at 14:00 ; Stop 12/23/16 at 06:29 SERENA ALCARAZ MD Dec 22, 2016 19:14
[2016-12-22] MEDS: ATORVASTATIN 10 MG TAB NGT SCH (20:54)
[2016-12-22] MEDS: INSULIN GLARGINE [LANtus] 3 ML PEN SC SCH (21:05)
[2016-12-23] VITALS (11 sets, daily range): BP systolic 112–122; BP diastolic 57–68; PULSE 60–75; RESP 18–20
[2016-12-23] MEDS: IPRATROPIUM (NEB) 0.5 MG/2.5 ML AMP HHN SCH ×4 (02:00→19:38)
[2016-12-23] MEDS: LEVALBUTEROL (NEB) 0.63 MG/3 ML AMP HHN SCH ×4 (02:00→19:38)
[2016-12-23] MEDS: CEFAZOLIN 1 GM/50 ML (PMX) 50 ML IVPB SCH (05:57)
[2016-12-23] MEDS: PANTOPRAZOLE (EC) 40 MG TAB PO SCH (05:57)
[2016-12-23 06:44] LABS: ADD SCAN DIFF NO
[2016-12-23 06:48] LABS: BASOPHIL # 0.1 10^3/ul (0.0-0.1); BASOPHILS % 0.7 % (0.0-2.0); EOSINOPHILS # 0.7 10^3/ul (0.0-0.5); EOSINOPHILS % 6.7 % (0.0-7.0); HEMATOCRIT 31.2 % (42.0-52.0); HEMOGLOBIN 10.2 g/dl (14.0-18.0); LYMPHOCYTES % 20.4 % (15.0-51.0); MEAN CORPUSCULAR HEMOGLOBIN 30.4 pg (29.0-33.0); MEAN CORPUSCULAR HGB CONC 32.7 g/dl (32.0-37.0); MEAN CORPUSCULAR VOLUME 93.1 fl (82.0-101.0); MEAN PLATELET VOLUME 11.8 fl (7.4-10.4); MONOCYTE # 0.7 10^3/ul (0.3-0.9); MONOCYTES % 7.6 % (0.0-11.0); NEUTROPHIL # 6.3 10^3/ul (1.6-7.5); NEUTROPHILS % 64.2 % (39.0-77.0); PLATELET COUNT 174 10^3/UL (140-415); RED BLOOD COUNT 3.35 10^6/ul (4.70-6.10); RED CELL DISTRIBUTION WIDTH 16.2 % (11.5-14.5); WHITE BLOOD COUNT 9.8 10^3/ul (4.8-10.8)
[2016-12-23 07:09] LABS: ALBUMIN 3.3 g/dl (3.3-4.9); ALBUMIN/GLOBULIN RATIO 1.1; BILIRUBIN,INDIRECT 0.2 mg/dl (0-1.1); BILIRUBIN,TOTAL 0.2 mg/dl (0.2-1.3); CALCIUM 9.9 mg/dl (8.4-10.2); CREATININE 1.82 mg/dl (0.61-1.24); MAGNESIUM 1.8 mg/dl (1.7-2.5); POTASSIUM 4.2 mmol/L (3.5-5.1); TOTAL PROTEIN 6.3 g/dl (6.1-8.1)
[2016-12-23] MEDS: Insulin NOVOLOG SS MODERATE Algorithm (SS with meals and bedtime) SC SCH ×4 (07:55→20:42)
[2016-12-23] MEDS: QUETIAPINE 100 MG TAB PO SCH ×2 (09:26→20:33)
[2016-12-23] MEDS: FOLIC ACID 1 MG TAB NGT SCH (09:26)
[2016-12-23] MEDS: MUPIROCIN 2% 22 GM OINT TOP SCH ×2 (09:26→20:43)
[2016-12-23] MEDS: MULTIVITAMINS 30 ML CUP NGT SCH (09:26)
[2016-12-23] MEDS: ASPIRIN 81 MG TAB PO SCH (09:26)
[2016-12-23] MEDS: DIVALPROEX (EC) 250 MG TAB PO SCH ×2 (09:26→20:34)
[2016-12-23] MEDS: CLOPIDOGREL 75 MG TAB PO SCH (09:26)
[2016-12-23] MEDS: LISINOPRIL 10 MG TAB PO SCH (09:29)
--- NOTE | 2016-12-23 10:15 | PN ---
Date/Time of Note Date/Time of Note DATE: 12/23/16 TIME: 10:13 Assessment/Plan VTE Prophylaxis VTE Prophylaxis Intervention: SCD's Lines/Catheters IV [facility]ter Type (from [facility]): Saline Lock Urinary Cath still in place: No Assessment/Plan Assessment/Plan 1. Status post ST elevation myocardial infarction, status post cardiac arrest secondary to ventricular tachycardia secondary to above. 2. Status post percutaneous coronary intervention of left circumflex artery. 3. Renal failure. 4. Congestive heart failure. 5. Recurrence of sustained ventricular tachycardia. 6. Paroxysmal atrial fibrillation: currently remains in NSR. 7. Severe encephalopathy: and intermittently hallucinating now and agitation but stable now. 8. Dyslipidemia. 9. Hypertension, 10. s/p resp failure: extubated on 12/06/16 11. episodes of marked sinus bradycardia : r/o TAHMINA 12. s/p sustained VT weeks after his NH. : s/p ICD now 13. sick sinus syndrome with episodes of marked sinus bradycardia down to HR 25 : . RECOMMENDATIONS: We will continue with current cardiac care ASA cont plavix i cont statin on coreg 3.125 bid now that has an ICD DEC lisinopril qd will need to keep the wound site clean and dry until reevaluated in about 1-2 weeks in office. keep steristips to air will need ICD interrogation in about 2 weeks again Subjective 24 Hr Interval Summary Free Text/Dictation The patient with no change Exam/Review of Systems Vital Signs Vitals Vital Signs Date Time Temp Pulse Resp B/P Pulse Ox O2 Delivery O2 Flow Rate FiO2 12/23/16 08:20 66 20 21 12/23/16 08:00 98.7 112/57 98 12/22/16 04:00 Room Air 12/19/16 08:05 2.0 Intake and Output 12/22/16 12/22/16 12/23/16 15:00 23:00 07:00 Intake Total 290 ml 340 ml Output Total 650 ml Balance -360 ml 340 ml Results Result Diagram: 12/23/16 0549 12/23/16 0549 Results 24 hrs Laboratory Tests Test 12/22/16 11:49 12/22/16 16:58 12/22/16 20:58 12/23/16 05:49 Bedside Glucose 118 167 129 White Blood Count 9.8 Red Blood Count 3.35 L Hemoglobin 10.2 L Hematocrit 31.2 L Mean Corpuscular Volume 93.1 Mean Corpuscular Hemoglobin 30.4 Mean Corpuscular Hemoglobin Concent 32.7 Red Cell Distribution Width 16.2 H Platelet Count 174 Mean Platelet Volume 11.8 H Neutrophils % 64.2 Lymphocytes % 20.4 Monocytes % 7.6 Eosinophils % 6.7 Basophils % 0.7 Nucleated Red Blood Cells % 0.0 Neutrophils # 6.3 Lymphocytes # 2.0 Monocytes # 0.7 Eosinophils # 0.7 H Basophils # 0.1 Nucleated Red Blood Cells # 0.0 Sodium Level 140 Potassium Level 4.2 Chloride Level 104 Carbon Dioxide Level 21 Anion Gap 19 H Blood Urea Nitrogen 23 H Creatinine 1.82 H Glucose Level 66 #L Calcium Level 9.9 Magnesium Level 1.8 Total Bilirubin 0.2 Direct Bilirubin 0.00 Indirect Bilirubin 0.2 Aspartate Amino Transf (AST/SGOT) 14 L Alanine Aminotransferase (ALT/SGPT) 14 Alkaline Phosphatase 89 Total Protein 6.3 # Albumin 3.3 Globulin 3.00 Albumin/Globulin Ratio 1.10 Test 12/23/16 08:31 Bedside Glucose 74 Medications Medications Current Medications Ondansetron HCl (Zofran Inj) 4 mg Q6H PRN IV NAUSEA AND/OR VOMITING; Start 04/27 at 17:00 Acetaminophen (Tylenol Liquid) 650 mg Q6H PRN PO PAIN LEVEL 1-3 OR FEVER Last administered on 12/10/16 03:59; Admin Dose 650 MG; Start 11/19/16 at 17:00 Acetaminophen (Tylenol Supp) 650 mg Q4H PRN [place] PAIN LEVEL 1-3 OR FEVER; Start 11/19/16 at 17:00 Docusate Sodium (Colace) 100 mg Q12H PRN PO CONSTIPATION; Start 11/19/16 at 17: 00 Magnesium Hydroxide (Milk Of Mag) 30 ml DAILY PRN PO CONSTIPATION Last administered on 11/29/16 09:23; Admin Dose 30 ML; Start 11/19/16 at 17:00 Bisacodyl (Dulcolax Supp) 10 mg DAILY PRN [place] CONSTIPATION Last administered on 11/29/16 09:23; Admin Dose 10 MG; Start 11/19/16 at 17:00 Miscellaneous Information 1 ea NOTE XX ; Start 11/19/16 at 17:30 Glucose (Glutose) 15 gm Q15M PRN PO DECREASED GLUCOSE; Start 11/19/16 at 17:30 Glucose (Glutose) 22.5 gm Q15M PRN PO DECREASED GLUCOSE; Start 11/19/16 at 17: 30 Dextrose (D50w Syringe) 25 ml Q15M PRN IV DECREASED GLUCOSE Last administered on 12/03/16 20:15; Admin Dose 25 ML; Start 11/19/16 at 17:30 Dextrose (D50w Syringe) 50 ml Q15M PRN IV DECREASED GLUCOSE; Start 11/19/16 at 17:30 Glucagon (Glucagen) 1 mg Q15M PRN IM DECREASED GLUCOSE; Start 11/19/16 at 17:30 Glucose (Glutose) 15 gm Q15M PRN BUCCAL DECREASED GLUCOSE; Start 11/19/16 at 17 :30 Atorvastatin Calcium (Lipitor) 10 mg HS NGT Last administered on 12/22/16 20: 54; Admin Dose 10 MG; Start 11/24/16 at 21:00 Mupirocin (Bactroban) 1 applic BID TOP Last administered on 12/23/16 09:26; Admin Dose 1 APPLIC; Start 11/27/16 at 09:30 Insulin Glargine (Lantus) 20 unit DAILY@20 SC Last administered on 12/22/16 21 :05; Admin Dose 20 UNIT; Start 11/27/16 at 20:00 Folic Acid (Folic Acid) 1 mg DAILY NGT Last administered on 12/23/16 09:26; Admin Dose 1 MG; Start 11/29/16 at 10:00 Multivitamins (Multivitamin) 30 ml DAILY NGT Last administered on 12/23/16 09: 26; Admin Dose 30 ML; Start 11/29/16 at 10:30 Hydralazine HCl (Apresoline) 10 mg Q2 PRN IV For SBP >170 Last administered on 12/11/16 08:33; Admin Dose 10 MG; Start 12/04/16 at 00:00 IV Flush (NS 10 ml) 10 ml PRN PRN IV IV PROTOCOL Last administered on 12/09/16 20:42; Admin Dose 10 ML; Start 12/08/16 at 16:00 Diagnostic Test (Pha) (Accu-Chek) 1 ea 02 XX Last administered on 12/13/16 02: 00; Admin Dose 1 EA; Start 12/09/16 at 13:30 Aspirin (Aspirin) 81 mg DAILY PO Last administered on 12/23/16 09:26; Admin Dose 81 MG; Start 12/10/16 at 09:00 Quetiapine Fumarate (Seroquel) 25 mg Q4H PRN PO agitation Last administered on 12/20/16 13:07; Admin Dose 25 MG; Start 12/10/16 at 10:30 Pantoprazole (Protonix Tab) 40 mg DAILY@06 PO Last administered on 12/23/16 05 :57; Admin Dose 40 MG; Start 12/17/16 at 09:30 Quetiapine Fumarate (Seroquel) 100 mg BID PO Last administered on 12/23/16 09: 26; Admin Dose 100 MG; Start 12/19/16 at 21:00 Divalproex Sodium (Depakote) 250 mg BID PO Last administered on 12/23/16 09:26 ; Admin Dose 250 MG; Start 12/19/16 at 21:00 Clopidogrel Bisulfate (plaVIX) 75 mg DAILY PO Last administered on 12/23/16 09 :26; Admin Dose 75 MG; Start 12/20/16 at 09:30 Acetaminophen (Tylenol Tab) 650 mg Q4H PRN PO NON-CARDIAC PAIN LEVEL (1-3); Start 12/22/16 at 08:30 Morphine Sulfate (morphine) 2 mg Q2H PRN IV FOR NON CARDIAC PAIN (4-10); Start 12/22/16 at 08:30 Morphine Sulfate (morphine) 1 mg Q1H PRN IV PAIN; Start 12/22/16 at 08:30 Lisinopril (Zestril) 10 mg DAILY PO Last administered on 12/23/16 09:29; Admin Dose 10 MG; Start 12/23/16 at 09:00 Carvedilol (Coreg) 3.125 mg BID PO Last administered on 12/23/16 09:29; Admin Dose 3.125 MG; Start 12/22/16 at 21:00 ROB ROBIN MD Dec 23, 2016 10:15
--- NOTE | 2016-12-23 11:17 | RADRPT ---
PROCEDURE: XR Chest. CLINICAL INDICATION: Shortness of breath. TECHNIQUE: Single frontal view. COMPARISON: 12/22/2016. FINDINGS: The lungs are clear. There is a left-sided dual lead permanent pacemaker/internal cardiac defibrillator. The heart is mi ldly enlarged. There is no pleural effusion. There is no pneumothorax. IMPRESSION: 1. Permanent pacemaker/internal cardiac defibrillator. 2. Mild cardiomegaly. 3. Clear lungs. RPTAT: QQ .Fernando Lowe MD, Date Time Electronically viewed and signed by .Fernando Lowe MD, MD on 12/23/2016 11:17 .R/
--- NOTE | 2016-12-23 13:11 | PN ---
Date/Time of Note Date/Time of Note DATE: 12/23/16 TIME: 12:59 Assessment/Plan VTE Prophylaxis VTE Prophylaxis Intervention: SCD's Lines/Catheters [facility] (from [facility] Saline Lock Urinary Cath still in place: No Assessment/Plan Assessment/Plan 56 year old male with multiple medical problems: 1. Paranoia/Bipolar disorder: seems to be better controlled with Depakote and Seroquel scheduled, also has Haldol prn . Also hx of polysubstance abuse Mood at baseline currently. 2. CAD, s/p STEMI and cardiac arrest; continue current meds more stable now 3. Ischemic Cardiomyopathy with and now with s/p episode of sustained VT and also SSS/A fib with episodes or marked bradycardia, appreciates recs form Dr Dc S/P and patient ICD/PPM placement and stable PPD#1. D/c planning 4. Acute Kidney Injury: improving/stable currently Tolerating po and OFF IVF Continue to monitor. 5. Diabetes mellitus. His blood sugars are fairly stable. A1c 7.1 Continue sliding scale insulin and Lantus to 20 units, continue SSI and will start premeal insulin once taking better po 6. Hypertension: continue current meds and Coreg resumed 7. Hyperlipidemia: continue statins 8. Obstructive sleep apnea on CPAP at night as outpatient. Monitor here as may need it 9. Tobacco use. Hopefully the patient will quit after this. Nicotine patch. Prophylaxis: Protonix for GI ppx and SCDs for DVT ppx. Dispo: s/p ICD/PPM D/c plan to SNF when bed and sitter available. Subjective 24 Hr Interval Summary Free Text/Dictation Patient doing Ok, remains stable and MS at baseline S/p ICD, PPD#1 and doing good Awaiting placement now Exam/Review of Systems Vital Signs Vitals Vital Signs Date Time Temp Pulse Resp B/P Pulse Ox O2 Delivery O2 Flow Rate FiO2 12/23/16 12:27 66 12/23/16 11:47 97.6 20 122/65 97 12/23/16 08:20 21 12/22/16 04:00 Room Air 12/19/16 08:05 2.0 Intake and Output 12/22/16 12/22/16 12/23/16 15:00 23:00 07:00 Intake Total 290 ml 340 ml Output Total 650 ml Balance -360 ml 340 ml Exam Constitutional: alert, oriented (x2 when awake ) Respiratory: clear to auscultation, normal air movement Cardiovascular: nl pulses, other (ICD), regular rate and rhythm Gastrointestinal: non-tender, soft Musculoskeletal: other (some distal toes necrosis resolving ) Extremities: normal pulses Neurological: TRAFFIC MONITOR SPECIALIST II-XII intact, nl mental status, nl speech, other (imbalance) Results Result Diagram: 12/23/16 0549 12/23/16 0549 Results 24 hrs Laboratory Tests Test 12/22/16 16:58 12/22/16 20:58 12/23/16 05:49 12/23/16 08:31 Bedside Glucose 167 129 74 White Blood Count 9.8 Red Blood Count 3.35 L Hemoglobin 10.2 L Hematocrit 31.2 L Mean Corpuscular Volume 93.1 Mean Corpuscular Hemoglobin 30.4 Mean Corpuscular Hemoglobin Concent 32.7 Red Cell Distribution Width 16.2 H Platelet Count 174 Mean Platelet Volume 11.8 H Neutrophils % 64.2 Lymphocytes % 20.4 Monocytes % 7.6 Eosinophils % 6.7 Basophils % 0.7 Nucleated Red Blood Cells % 0.0 Neutrophils # 6.3 Lymphocytes # 2.0 Monocytes # 0.7 Eosinophils # 0.7 H Basophils # 0.1 Nucleated Red Blood Cells # 0.0 Sodium Level 140 Potassium Level 4.2 Chloride Level 104 Carbon Dioxide Level 21 Anion Gap 19 H Blood Urea Nitrogen 23 H Creatinine 1.82 H Glucose Level 66 #L Calcium Level 9.9 Magnesium Level 1.8 Total Bilirubin 0.2 Direct Bilirubin 0.00 Indirect Bilirubin 0.2 Aspartate Amino Transf (AST/SGOT) 14 L Alanine Aminotransferase (ALT/SGPT) 14 Alkaline Phosphatase 89 Total Protein 6.3 # Albumin 3.3 Globulin 3.00 Albumin/Globulin Ratio 1.10 Medications Medications Current Medications Ondansetron HCl (Zofran Inj) 4 mg Q6H PRN IV NAUSEA AND/OR VOMITING; Start 04/27 at 17:00 Acetaminophen (Tylenol Liquid) 650 mg Q6H PRN PO PAIN LEVEL 1-3 OR FEVER Last administered on 12/10/16t 03:59; Admin Dose 650 MG; Start 11/19/16 at 17:00 Acetaminophen (Tylenol Supp) 650 mg Q4H PRN [place] PAIN LEVEL 1-3 OR FEVER; Start 11/19/16 at 17:00 Docusate Sodium (Colace) 100 mg Q12H PRN PO CONSTIPATION; Start 11/19/16 at 17: 00 Magnesium Hydroxide (Milk Of Mag) 30 ml DAILY PRN PO CONSTIPATION Last administered on 11/29/16 09:23; Admin Dose 30 ML; Start 11/19/16 at 17:00 Bisacodyl (Dulcolax Supp) 10 mg DAILY PRN [place] CONSTIPATION Last administered on 11/29/16 09:23; Admin Dose 10 MG; Start 11/19/16 at 17:00 Miscellaneous Information 1 ea NOTE XX ; Start 11/19/16 at 17:30 Glucose (Glutose) 15 gm Q15M PRN PO DECREASED GLUCOSE; Start 11/19/16 at 17:30 Glucose (Glutose) 22.5 gm Q15M PRN PO DECREASED GLUCOSE; Start 11/19/16 at 17: 30 Dextrose (D50w Syringe) 25 ml Q15M PRN IV DECREASED GLUCOSE Last administered on 12/03/16 20:15; Admin Dose 25 ML; Start 11/19/16 at 17:30 Dextrose (D50w Syringe) 50 ml Q15M PRN IV DECREASED GLUCOSE; Start 11/19/16 at 17:30 Glucagon (Glucagen) 1 mg Q15M PRN IM DECREASED GLUCOSE; Start 11/19/16 at 17:30 Glucose (Glutose) 15 gm Q15M PRN BUCCAL DECREASED GLUCOSE; Start 11/19/16 at 17 :30 Atorvastatin Calcium (Lipitor) 10 mg HS NGT Last administered on 12/22/16 20: 54; Admin Dose 10 MG; Start 11/24/16 at 21:00 Mupirocin (Bactroban) 1 applic BID TOP Last administered on 12/23/16 09:26; Admin Dose 1 APPLIC; Start 11/27/16 at 09:30 Insulin Glargine (Lantus) 20 unit DAILY@20 SC Last administered on 12/22/16 21 :05; Admin Dose 20 UNIT; Start 11/27/16 at 20:00 Folic Acid (Folic Acid) 1 mg DAILY NGT Last administered on 12/23/16 09:26; Admin Dose 1 MG; Start 11/29/16 at 10:00 Multivitamins (Multivitamin) 30 ml DAILY NGT Last administered on 12/23/16 09: 26; Admin Dose 30 ML; Start 11/29/16 at 10:30 Hydralazine HCl (Apresoline) 10 mg Q2 PRN IV For SBP >170 Last administered on 12/11/16 08:33; Admin Dose 10 MG; Start 12/04/16 at 00:00 IV Flush (NS 10 ml) 10 ml PRN PRN IV IV PROTOCOL Last administered on 12/09/16 20:42; Admin Dose 10 ML; Start 12/08/16 at 16:00 Diagnostic Test (Pha) (Accu-Chek) 1 ea 02 XX Last administered on 12/13/16 02: 00; Admin Dose 1 EA; Start 12/09/16 at 13:30 Aspirin (Aspirin) 81 mg DAILY PO Last administered on 12/23/16 09:26; Admin Dose 81 MG; Start 12/10/16 at 09:00 Quetiapine Fumarate (Seroquel) 25 mg Q4H PRN PO agitation Last administered on 12/20/16 13:07; Admin Dose 25 MG; Start 12/10/16 at 10:30 Pantoprazole (Protonix Tab) 40 mg DAILY@06 PO Last administered on 12/23/16 05 :57; Admin Dose 40 MG; Start 12/17/16 at 09:30 Quetiapine Fumarate (Seroquel) 100 mg BID PO Last administered on 12/23/16 09: 26; Admin Dose 100 MG; Start 12/19/16 at 21:00 Divalproex Sodium (Depakote) 250 mg BID PO Last administered on 12/23/16 09:26 ; Admin Dose 250 MG; Start 12/19/16 at 21:00 Clopidogrel Bisulfate (plaVIX) 75 mg DAILY PO Last administered on 12/23/16 09 :26; Admin Dose 75 MG; Start 12/20/16 at 09:30 Acetaminophen (Tylenol Tab) 650 mg Q4H PRN PO NON-CARDIAC PAIN LEVEL (1-3); Start 12/22/16 at 08:30 Morphine Sulfate (morphine) 2 mg Q2H PRN IV FOR NON CARDIAC PAIN (4-10); Start 12/22/16 at 08:30 Morphine Sulfate (morphine) 1 mg Q1H PRN IV PAIN; Start 12/22/16 at 08:30 Lisinopril (Zestril) 10 mg DAILY PO Last administered on 12/23/16 09:29; Admin Dose 10 MG; Start 12/23/16 at 09:00 Carvedilol (Coreg) 3.125 mg BID PO Last administered on 12/23/16 09:29; Admin Dose 3.125 MG; Start 12/22/16 at 21:00 PIO VEGA Dec 23, 2016 13:10
--- NOTE | 2016-12-23 13:13 | PDOCDIS ---
Discharge Instructions CONDITION Patient Condition: Stable HOME CARE INSTRUCTIONS: Special Diet: Diabetic Puree ACTIVITY: Activity Restrictions: Slowly Increase Activity FOLLOW UP/APPOINTMENTS Follow-up Plan Follow up with Dr Simeon in 2 weeks Need to keep the wound site clean and dry until reevaluated in about 1-2 weeks in office, keep steri-strips to air Need ICD interrogation in about 2 weeks. Follow up with PCP within 1 week Will need Sitter at SNF and outpatient psychiatry follow up PIO VEGA Dec 23, 2016 13:12
[2016-12-23] MEDS: ATORVASTATIN 10 MG TAB NGT SCH (20:33)
[2016-12-23] MEDS: INSULIN GLARGINE [LANtus] 3 ML PEN SC SCH (20:42)
[2016-12-23] MEDS: ACCUCHECK 2 AM XX SCH (20:43)
[2016-12-24 00:53] VITALS: PULSE 60
[2016-12-24] MEDS: IPRATROPIUM (NEB) 0.5 MG/2.5 ML AMP HHN SCH ×3 (01:53→14:01)
[2016-12-24] MEDS: LEVALBUTEROL (NEB) 0.63 MG/3 ML AMP HHN SCH ×3 (01:53→14:02)
[2016-12-24 04:00] VITALS: PULSE 63
[2016-12-24] MEDS: PANTOPRAZOLE (EC) 40 MG TAB PO SCH (05:49)
[2016-12-24 07:24] LABS: ADD SCAN DIFF NO
[2016-12-24 07:32] LABS: BASOPHIL # 0.1 10^3/ul (0.0-0.1); BASOPHILS % 0.9 % (0.0-2.0); EOSINOPHILS # 0.8 10^3/ul (0.0-0.5); EOSINOPHILS % 8.1 % (0.0-7.0); HEMATOCRIT 30.1 % (42.0-52.0); HEMOGLOBIN 9.7 g/dl (14.0-18.0); LYMPHOCYTES % 20.5 % (15.0-51.0); MEAN CORPUSCULAR HEMOGLOBIN 30.1 pg (29.0-33.0); MEAN CORPUSCULAR HGB CONC 32.2 g/dl (32.0-37.0); MEAN CORPUSCULAR VOLUME 93.5 fl (82.0-101.0); MEAN PLATELET VOLUME 12.1 fl (7.4-10.4); MONOCYTE # 0.8 10^3/ul (0.3-0.9); MONOCYTES % 8.7 % (0.0-11.0); NEUTROPHIL # 5.8 10^3/ul (1.6-7.5); NEUTROPHILS % 61.4 % (39.0-77.0); PLATELET COUNT 158 10^3/UL (140-415); RED BLOOD COUNT 3.22 10^6/ul (4.70-6.10); RED CELL DISTRIBUTION WIDTH 16.1 % (11.5-14.5); WHITE BLOOD COUNT 9.5 10^3/ul (4.8-10.8)
[2016-12-24 07:46] LABS: CALCIUM 9.7 mg/dl (8.4-10.2); CREATININE 1.6 mg/dl (0.61-1.24); POTASSIUM 3.9 mmol/L (3.5-5.1)
[2016-12-24] MEDS: Insulin NOVOLOG SS MODERATE Algorithm (SS with meals and bedtime) SC SCH ×3 (07:55→17:33)
[2016-12-24 08:18] VITALS: BP 109/68; PULSE 60; RESP 20
[2016-12-24] MEDS: MULTIVITAMINS 30 ML CUP NGT SCH (08:34)
[2016-12-24] MEDS: FOLIC ACID 1 MG TAB NGT SCH (08:34)
[2016-12-24] MEDS: DIVALPROEX (EC) 250 MG TAB PO SCH (08:34)
[2016-12-24] MEDS: CLOPIDOGREL 75 MG TAB PO SCH (08:34)
[2016-12-24] MEDS: ASPIRIN 81 MG TAB PO SCH (08:35)
[2016-12-24] MEDS: QUETIAPINE 100 MG TAB PO SCH (08:35)
[2016-12-24] MEDS: LISINOPRIL 10 MG TAB PO SCH (08:35)
[2016-12-24] MEDS: MUPIROCIN 2% 22 GM OINT TOP SCH (08:40)
[2016-12-24 08:43] VITALS: PULSE 62
--- NOTE | 2016-12-24 11:05 | PN ---
Date/Time of Note Date/Time of Note DATE: 12/24/16 TIME: 11:00 Assessment/Plan VTE Prophylaxis VTE Prophylaxis Intervention: SCD's Lines/Catheters IV C[facility]ter Type (from [facility]): Peripheral IV Urinary Cath still in place: No Assessment/Plan Assessment/Plan 56 year old male with multiple medical problems: 1. Paranoia/Bipolar disorder: seems to be better controlled with Depakote and Seroquel scheduled, also has Haldol prn . Also hx of polysubstance abuse Mood at baseline currently. 2. CAD, s/p STEMI and cardiac arrest; continue current meds more stable now 3. Ischemic Cardiomyopathy with and now with s/p episode of sustained VT and also SSS/A fib with episodes or marked bradycardia, appreciates recs form Dr Dc S/P and patient ICD/PPM placement and stable PPD#2. D/c planning to SNF today with follow up with Dr Simeon in 2 weeks fpr PPM check 4. Acute Kidney Injury with likely CKD underlying: improving/stable currently Tolerating po and OFF IVF Continue to monitor. 5. Diabetes mellitus. His blood sugars are fairly stable. A1c 7.1 Continue sliding scale insulin and Lantus down to 15 units, continue SSI and premeal insulin. 6. Hypertension: continue current meds and Coreg. 7. Hyperlipidemia: continue statins 8. Obstructive sleep apnea on CPAP at night as outpatient. Monitor here as may need it 9. Tobacco use. Hopefully the patient will quit after this. Nicotine patch. Prophylaxis: Protonix for GI ppx and SCDs for DVT ppx. Dispo: s/p ICD/PPM D/c plan to SNF today with Sitter if bed available. Subjective 24 Hr Interval Summary Free Text/Dictation Patient remains stable and awaiting SNF placement, apparently bed available today with sitter Lantus decreased to 15 today Exam/Review of Systems Vital Signs Vitals Vital Signs Date Time Temp Pulse Resp B/P Pulse Ox O2 Delivery O2 Flow Rate FiO2 12/24/16 08:43 62 12/24/16 08:18 97.8 20 109/68 98 Room Air 12/24/16 02:08 21 Intake and Output 12/23/16 12/23/16 12/24/16 15:00 23:00 07:00 Intake Total 1000 ml Output Total 650 ml Balance 350 ml Exam Constitutional: alert, oriented (x2), well developed Respiratory: clear to auscultation, normal air movement Cardiovascular: nl pulses, other (s/p PPM), regular rate and rhythm Gastrointestinal: non-tender, soft Musculoskeletal: other (chronic small necrotic areas of toes post angio, stable ) Extremities: normal pulses Neurological: COMPLIANCE REVIEW OFFICER II-XII intact, nl mental status (at baseline ), nl speech, other (generalosed weakness ) Results Result Diagram: 12/24/16 0559 12/24/16 0559 Results 24 hrs Laboratory Tests Test 12/23/16 14:39 12/23/16 18:02 12/23/16 20:36 12/24/16 05:59 Bedside Glucose 137 74 105 White Blood Count 9.5 Red Blood Count 3.22 L Hemoglobin 9.7 L Hematocrit 30.1 L Mean Corpuscular Volume 93.5 Mean Corpuscular Hemoglobin 30.1 Mean Corpuscular Hemoglobin Concent 32.2 Red Cell Distribution Width 16.1 H Platelet Count 158 Mean Platelet Volume 12.1 H Neutrophils % 61.4 Lymphocytes % 20.5 Monocytes % 8.7 Eosinophils % 8.1 H Basophils % 0.9 Nucleated Red Blood Cells % 0.0 Neutrophils # 5.8 Lymphocytes # 2.0 Monocytes # 0.8 Eosinophils # 0.8 H Basophils # 0.1 Nucleated Red Blood Cells # 0.0 Sodium Level 137 Potassium Level 3.9 Chloride Level 104 Carbon Dioxide Level 22 Anion Gap 15 Blood Urea Nitrogen 23 H Creatinine 1.60 H Glucose Level 64 L Calcium Level 9.7 Magnesium Level 1.8 Test 12/24/16 07:53 12/24/16 08:32 12/24/16 08:47 12/24/16 09:05 Bedside Glucose 60 L 57 L 58 L 82 Medications Medications Current Medications Ondansetron HCl (Zofran Inj) 4 mg Q6H PRN IV NAUSEA AND/OR VOMITING; Start 04/27 at 17:00 Acetaminophen (Tylenol Liquid) 650 mg Q6H PRN PO PAIN LEVEL 1-3 OR FEVER Last administered on 12/10/16 03:59; Admin Dose 650 MG; Start 11/19/16 at 17:00 Acetaminophen (Tylenol Supp) 650 mg Q4H PRN [place] PAIN LEVEL 1-3 OR FEVER; Start 11/19/16 at 17:00 Docusate Sodium (Colace) 100 mg Q12H PRN PO CONSTIPATION; Start 11/19/16 at 17: 00 Magnesium Hydroxide (Milk Of Mag) 30 ml DAILY PRN PO CONSTIPATION Last administered on 11/29/16 09:23; Admin Dose 30 ML; Start 11/19/16 at 17:00 Bisacodyl (Dulcolax Supp) 10 mg DAILY PRN [place] CONSTIPATION Last administered on 11/29/16 09:23; Admin Dose 10 MG; Start 11/19/16 at 17:00 Miscellaneous Information 1 ea NOTE XX ; Start 11/19/16 at 17:30 Glucose (Glutose) 15 gm Q15M PRN PO DECREASED GLUCOSE; Start 11/19/16 at 17:30 Glucose (Glutose) 22.5 gm Q15M PRN PO DECREASED GLUCOSE Last administered on 08:51; Admin Dose 22.5 GM; Start 11/19/16 at 17:30 Dextrose (D50w Syringe) 25 ml Q15M PRN IV DECREASED GLUCOSE Last administered on 12/03/16 20:15; Admin Dose 25 ML; Start 11/19/16 at 17:30 Dextrose (D50w Syringe) 50 ml Q15M PRN IV DECREASED GLUCOSE; Start 11/19/16 at 17:30 Glucagon (Glucagen) 1 mg Q15M PRN IM DECREASED GLUCOSE; Start 11/19/16 at 17:30 Glucose (Glutose) 15 gm Q15M PRN BUCCAL DECREASED GLUCOSE; Start 11/19/16 at 17 :30 Atorvastatin Calcium (Lipitor) 10 mg HS NGT Last administered on 12/23/16 20: 33; Admin Dose 10 MG; Start 11/24/16 at 21:00 Mupirocin (Bactroban) 1 applic BID TOP Last administered on 12/24/16 08:40; Admin Dose 1 APPLIC; Start 11/27/16 at 09:30 Folic Acid (Folic Acid) 1 mg DAILY NGT Last administered on 12/24/16 08:34; Admin Dose 1 MG; Start 11/29/16 at 10:00 Multivitamins (Multivitamin) 30 ml DAILY NGT Last administered on 12/24/16 08: 34; Admin Dose 30 ML; Start 11/29/16 at 10:30 Hydralazine HCl (Apresoline) 10 mg Q2 PRN IV For SBP >170 Last administered on 12/11/16 08:33; Admin Dose 10 MG; Start 12/04/16 at 00:00 IV Flush (NS 10 ml) 10 ml PRN PRN IV IV PROTOCOL Last administered on 12/09/16 20:42; Admin Dose 10 ML; Start 12/08/16 at 16:00 Diagnostic Test (Pha) (Accu-Chek) 1 ea 02 XX Last administered on 12/13/16 02: 00; Admin Dose 1 EA; Start 12/09/16 at 13:30 Aspirin (Aspirin) 81 mg DAILY PO Last administered on 12/24/16 08:35; Admin Dose 81 MG; Start 12/10/16 at 09:00 Quetiapine Fumarate (Seroquel) 25 mg Q4H PRN PO agitation Last administered on 12/20/16 13:07; Admin Dose 25 MG; Start 12/10/16 at 10:30 Pantoprazole (Protonix Tab) 40 mg DAILY@06 PO Last administered on 12/24/16 05 :49; Admin Dose 40 MG; Start 12/17/16 at 09:30 Quetiapine Fumarate (Seroquel) 100 mg BID PO Last administered on 12/24/16 08: 35; Admin Dose 100 MG; Start 12/19/16 at 21:00 Divalproex Sodium (Depakote) 250 mg BID PO Last administered on 12/24/16 08:34 ; Admin Dose 250 MG; Start 12/19/16 at 21:00 Clopidogrel Bisulfate (plaVIX) 75 mg DAILY PO Last administered on 12/24/16 08 :34; Admin Dose 75 MG; Start 12/20/16 at 09:30 Acetaminophen (Tylenol Tab) 650 mg Q4H PRN PO NON-CARDIAC PAIN LEVEL (1-3); Start 12/22/16 at 08:30 Morphine Sulfate (morphine) 2 mg Q2H PRN IV FOR NON CARDIAC PAIN (4-10); Start 12/22/16 at 08:30 Morphine Sulfate (morphine) 1 mg Q1H PRN IV PAIN; Start 12/22/16 at 08:30 Lisinopril (Zestril) 10 mg DAILY PO Last administered on 12/24/16 08:35; Admin Dose 10 MG; Start 12/23/16 at 09:00 Carvedilol (Coreg) 3.125 mg BID PO Last administered on 12/24/16t 08:35; Admin Dose 3.125 MG; Start 12/22/16 at 21:00 Insulin Glargine (Lantus) 15 unit DAILY@20 SC ; Start 12/24/16 at 20:00 PIO VEGA Dec 24, 2016 11:05
[2016-12-24 12:23] VITALS: PULSE 59
[2016-12-24] MEDS: QUETIAPINE 25 MG TAB PO PRN (15:22)
[2016-12-24 16:17] VITALS: PULSE 60
[2016-12-24] MEDS ORDERED: INSULIN GLARGINE [LANtus] 3 ML PEN SC SCH (20:00)
--- NOTE | 2016-12-26 13:46 | RADRPT ---
Vent Rate: 64 bpm RR Interval: 0 msec LA Interval: 184 msec QRS Duration: 116 msec QT Interval: 460 msec QTC Interval: 474 msec P-R-T [place]: 31 - 2 - 48 degrees Normal sinus rhythm Nonspecific T wave abnormality Prolonged QT Abnormal ECG Electronically Signed By: Yobany Lima [id number]
== END 2016-12-24 17:50 | DRG 222 ==
LOC: E/R 11:51 → CCL 12:39 → SDS 12:39 → CCL 16:07 → ICU 16:09 → TEL 12-07 17:17
PROVIDERS: ADMIT Internal Medicine; ATTEND Internal Medicine
PROC: 4A023N7 Measurement of Cardiac Sampling and Pressure, Left Heart, Percutaneous Approach (ICD-10-PCS; 2016-11-19)
PROC: 5A02210 Assistance with Cardiac Output using Balloon Pump, Continuous (ICD-10-PCS; 2016-11-19)
PROC: 5A1955Z Respiratory Ventilation, Greater than 96 Consecutive Hours (ICD-10-PCS; 2016-11-19)
PROC: 02703EZ Dilation of Coronary Artery, One Artery with Two Intraluminal Devices, Percutaneous Approach (ICD-10-PCS; 2016-11-19)
PROC: 02C03Z6 Extirpation of Matter from Coronary Artery, One Artery, Bifurcation, Percutaneous Approach (ICD-10-PCS; 2016-11-19)
PROC: 05HM33Z Insertion of Infusion Device into Right Internal Jugular Vein, Percutaneous Approach (ICD-10-PCS; 2016-11-19)
PROC: B543ZZA Ultrasonography of Right Jugular Veins, Guidance (ICD-10-PCS; 2016-11-19)
PROC: B211YZZ Fluoroscopy of Multiple Coronary Arteries using Other Contrast (ICD-10-PCS; 2016-11-19)
PROC: 4A033BC Measurement of Arterial Pressure, Coronary, Percutaneous Approach (ICD-10-PCS; 2016-11-19)
PROC: 3E073PZ Introduction of Platelet Inhibitor into Coronary Artery, Percutaneous Approach (ICD-10-PCS; 2016-11-19)
PROC: 0BH17EZ Insertion of Endotracheal Airway into Trachea, Via Natural or Artificial Opening (ICD-10-PCS; 2016-11-19)
PROC: 5A2204Z Restoration of Cardiac Rhythm, Single (ICD-10-PCS; 2016-11-19)
PROC: 0JH608Z Insertion of Defibrillator Generator into Chest Subcutaneous Tissue and Fascia, Open Approach (ICD-10-PCS; principal; 2016-11-22)
PROC: 02HK3KZ Insertion of Defibrillator Lead into Right Ventricle, Percutaneous Approach (ICD-10-PCS; 2016-11-22)
PROC: 02H63KZ Insertion of Defibrillator Lead into Right Atrium, Percutaneous Approach (ICD-10-PCS; 2016-11-22)
PROC: 02HV33Z Insertion of Infusion Device into Superior Vena Cava, Percutaneous Approach (ICD-10-PCS; 2016-12-08)
DX: I21.19 ST elevation (STEMI) myocardial infarction involving other coronary artery of inferior wall (principal); K72.00 Acute and subacute hepatic failure without coma; I49.01 Ventricular fibrillation; N17.0 Acute kidney failure with tubular necrosis; J96.01 Acute respiratory failure with hypoxia; J96.02 Acute respiratory failure with hypercapnia; D68.4 Acquired coagulation factor deficiency; J18.9 Pneumonia, unspecified organism; G92 Toxic encephalopathy; R57.0 Cardiogenic shock; I50.21 Acute systolic (congestive) heart failure; I46.2 Cardiac arrest due to underlying cardiac condition; I96 Gangrene, not elsewhere classified; I13.0 Hypertensive heart and chronic kidney disease with heart failure and stage 1 through stage 4 chronic kidney disease, or unspecified chronic kidney disease; E87.2 Acidosis; B37.0 Candidal stomatitis; I47.2 Ventricular tachycardia; E11.22 Type 2 diabetes mellitus with diabetic chronic kidney disease; N18.9 Chronic kidney disease, unspecified; E66.01 Morbid (severe) obesity due to excess calories; I25.10 Atherosclerotic heart disease of native coronary artery without angina pectoris; I25.82 Chronic total occlusion of coronary artery; E11.21 Type 2 diabetes mellitus with diabetic nephropathy; Z68.39 Body mass index [BMI] 39.0-39.9, adult; F17.200 Nicotine dependence, unspecified, uncomplicated; I48.0 Paroxysmal atrial fibrillation; E78.5 Hyperlipidemia, unspecified; I25.5 Ischemic cardiomyopathy; J44.9 Chronic obstructive pulmonary disease, unspecified; G47.33 Obstructive sleep apnea (adult) (pediatric); T38.895A Adverse effect of other hormones and synthetic substitutes, initial encounter; B96.1 Klebsiella pneumoniae [K. pneumoniae] as the cause of diseases classified elsewhere; B95.61 Methicillin susceptible Staphylococcus aureus infection as the cause of diseases classified elsewhere; Z22.322 Carrier or suspected carrier of Methicillin resistant Staphylococcus aureus; Z66 Do not resuscitate; Z86.73 Personal history of transient ischemic attack (TIA), and cerebral infarction without residual deficits; F31.9 Bipolar disorder, unspecified; F22 Delusional disorders; I49.5 Sick sinus syndrome; F10.21 Alcohol dependence, in remission; F15.21 Other stimulant dependence, in remission; F91.8 Other conduct disorders; Z79.84 Long term (current) use of oral hypoglycemic drugs
CPT/HCPCS: 31500; 33249; 36415; 36569; 36600; 70450; 70551; 71010; 76775; 76937; 80048; 80053; 80061; 80069; 80076; 80162; 81001; 81003; 82140; 82550; 82553; 82570; 82803; 82962; 83036; 83605; 83735; 83880; 84100; 84145; 84300; 84439; 84443; 84484; 84560; 85025; 85049; 85362; 85378; 85384; 85610; 85670; 85730; 87070; 87075; 87081; 87086; 89190; 89220; 92526; 92610; 93005; 93306; 94002; 94003; 94640; 94664; 94770; 96374; 96375; 97110; 97162; 97530; J1940; J2001; C1725; C1726; C1757; C1769; C1874; C1887; C1894; C9600; C9606; J0282; J0360; J0690; J1170; J1327; J1630; J1644; J1815; J2250; J2543; J3010; J3370; J3411; J3475; J3480; J7030; J7040; J7042; J7060; J7070; J7999; Q9967